=== PATIENT | male | born 1950 | race Caucasian/White ===

== ENCOUNTER 2018-10-30 15:48 | Observation (INO) | payer MEDICARE ==
[~2018-10-30] VITALS: Ht 172.7 cm; Wt 111.2 kg
[2018-10-30] VITALS (8 sets, daily range): BP systolic 134–172; BP diastolic 66–92
[~2018-10-30 15:48] MED LIST: ALBU17AE3 IH; AMLO10TA82 PO; ATOR40TA PO; BPR150TCR PO; BUDE6HFA IH; HYDR-3454 PO; HYDR1TAB86 PO; METF-399 PO; RT-COMBINH IH; TR5C15 TOP
--- NOTE | 2018-10-30 16:13 | ED Chest Pain ---
General Chief Complaint: Chest Pain Stated Complaint: CHEST PAIN,SOB Source: patient, family Exam Limitations: no limitations History of Present Illness Date Seen by Provider: Oct 30, 2018 Time Seen by Provider: 16:10 Initial Comments This 68-year-old white male presents with a complaint of chest pain and shortness of breath that has been present for the last several days. The patient states the shortness of breath is only mildly worse than his normal COPD. Patient's chest pain has been primarily anterior in his chest on both the right and left sides. It is been intermittent in nature. It does not seem to be associated with exercise. The patient's past medical history includes COPD. Allergies and Home Medications Allergies Coded Allergies: No Known Drug Allergies (Unverified , 03/21/13) Home Medications Atorvastatin Calcium 40 Mg Tablet, 40 MG PO DAILY, (Reported) Budesonide/Formoterol Fumarate 10.2 Gm Hfa.aer.ad, 2 PUFF IH BID, (Reported) Hydrocodone/Acetaminophen 1 Each Tablet, 1 EACH PO Q4H PRN for PAIN Prescribed by: BOBO SALAZAR on 06/04/16 1723 Ipratropium/Albuterol Sulfate 14.7 Gm Aer.w.adap, 2 PUFF IH QID, (Reported) Metformin HCl 1,000 Mg Tablet, 1,000 MG PO BID, (Reported) Patient Home Medication List Home Medication List Reviewed: Yes Review of Systems Review of Systems Constitutional: No chills, No fever EENTM: No Blurred Vision Respiratory: Denies Cough; SOA at Rest Cardiovascular: See HPI, Chest Pain Gastrointestinal: Denies Abdomen Distended, Denies Nausea, Denies Vomiting Genitourinary: Denies Flank Pain Musculoskeletal: No back pain Skin: No rash Psychiatric/Neurological: No Symptoms Reported Endocrine: No Symptoms Reported Hematologic/Lymphatic: No Symptoms Reported Past Eepcigq-Bvowyn-Sdosjl Hx Past Med/Social Hx: Reviewed Nursing Past Med/Soc Hx Patient Social History Recent Foreign Travel: No Contact w/Someone Who Travel: No Past Medical History Skin Physical Exam Vital Signs Vital Signs - First Documented 10/30/18 15:50 Temp 99.4 Pulse 106 Resp 25 B/P (MAP) 177/90 (119) Pulse Ox 93 O2 Delivery Room Air O2 Flow Rate 2.00 Capillary Refill : Height, Weight, BMI Height: 5'7.00" Weight: 235lbs. 0.0oz. 106.720647lt; 39.10 BMI Method: General Appearance: No Apparent Distress, WD/WN HEENT: Normal ENT Inspection Neck: Normal Inspection Respiratory: Decreased Breath Sounds, Wheezing Cardiovascular: Regular Rate, Rhythm Gastrointestinal: Normal Bowel Sounds Extremity: Normal Inspection, Normal Range of Motion Neurologic/Psychiatric: Alert, Oriented x3, No Motor/Sensory Deficits Skin: Normal Color, Warm/Dry Progress/Results/Core Measures Results/Orders Lab Results Laboratory Tests Test 10/30/18 15:58 Range/Units White Blood Count 7.1 4.3-11.0 10^3/uL Red Blood Count 5.16 4.35-5.85 10^6/uL Hemoglobin 15.2 13.3-17.7 G/DL Hematocrit 46 40-54 % Mean Corpuscular Volume 89 80-99 FL Mean Corpuscular Hemoglobin 30 25-34 PG Mean Corpuscular Hemoglobin Concent 33 32-36 G/DL Red Cell Distribution Width 14.1 10.0-14.5 % Platelet Count 235 130-400 10^3/uL Mean Platelet Volume 9.4 7.4-10.4 FL Neutrophils (%) (Auto) 50 42-75 % Lymphocytes (%) (Auto) 33 12-44 % Monocytes (%) (Auto) 14 H 0-12 % Eosinophils (%) (Auto) 3 0-10 % Basophils (%) (Auto) 0 0-10 % Neutrophils # (Auto) 3.5 1.8-7.8 X 10^3 Lymphocytes # (Auto) 2.4 1.0-4.0 X 10^3 Monocytes # (Auto) 1.0 0.0-1.0 X 10^3 Eosinophils # (Auto) 0.2 0.0-0.3 10^3/uL Basophils # (Auto) 0.0 0.0-0.1 10^3/uL Prothrombin Time 13.0 12.2-14.7 SEC INR Comment 1.0 0.8-1.4 Activated Partial Thromboplast Time 32 24-35 SEC Sodium Level 139 135-145 MMOL/L Potassium Level 3.8 3.6-5.0 MMOL/L Chloride Level 103 98-107 MMOL/L Carbon Dioxide Level 22 21-32 MMOL/L Anion Gap 14 5-14 MMOL/L Blood Urea Nitrogen 17 7-18 MG/DL Creatinine 0.80 0.60-1.30 MG/DL Estimat Glomerular Filtration Rate > 60 BUN/Creatinine Ratio 21 Glucose Level 124 H 70-105 MG/DL Calcium Level 9.2 8.5-10.1 MG/DL Corrected Calcium 9.1 8.5-10.1 MG/DL Magnesium Level 2.1 1.8-2.4 MG/DL Total Bilirubin 0.5 0.1-1.0 MG/DL Aspartate Amino Transf (AST/SGOT) 31 5-34 U/L Alanine Aminotransferase (ALT/SGPT) 40 0-55 U/L Alkaline Phosphatase 45 40-136 U/L Myoglobin 64.4 10.0-92.0 NG/ML Troponin I < 0.30 <0.30 NG/ML Total Protein 7.5 6.4-8.2 GM/DL Albumin 4.1 3.2-4.5 GM/DL My Orders Orders - BHARGAVI, SARAHI Fried MD Cbc With Automated Diff (10/30/18 16:08) Magnesium (10/30/18 16:08) Chest 1 View, Ap/Pa Only (10/30/18 16:08) Ekg Tracing (10/30/18 16:08) Cardiac Profile 1 (10/30/18 16:08) Comprehensive Metabolic Panel (10/30/18 16:08) Myoglobin Serum (10/30/18 16:08) Protime With Inr (10/30/18 16:08) Partial Thromboplastin Time (10/30/18 16:08) O2 (10/30/18 16:08) Monitor-Rhythm Ecg Trace Only (10/30/18 16:08) Lipid Panel (10/31/18 06:00) Aspirin Chewable Tablet (Baby Aspirin Ch (10/30/18 16:15) Nitroglycerin 0.4 Mg Btl 25's (Nitrostat (10/30/18 16:15) Saline Lock/Iv-Start (10/30/18 16:08) Methylprednisolone Sod Succ (Solu-Medrol (10/30/18 17:00) Ceftriaxone For Iv Use (Rocephin For I (10/30/18 17:00) Azithromycin Injection (Zithromax Inject (10/30/18 17:00) Albuterol/Ipra Inhalation Soln (Duoneb I (10/30/18 17:00) Svn Small Volume Nebulizer (10/30/18 17:00) Medications Given in ED Current Medications Medications Dose Ordered Sig/Elvira Route Start Time Stop Time Status Last Admin Dose Admin Aspirin 324 mg ONCE ONCE PO 10/30/18 16:15 10/30/18 16:16 DC 10/30/18 16:16 324 MG Nitroglycerin 0.4 mg UD PRN SL 10/30/18 16:15 10/30/18 16:17 0.4 MG Vital Signs/I&O 10/30/18 10/30/18 15:50 15:50 Temp 99.4 Pulse 106 Resp 25 B/P (MAP) 177/90 (119) Pulse Ox 93 94 O2 Delivery Room Air Nasal Cannula O2 Flow Rate 2.00 Progress Progress Note : Time: 17:02 Progress Note The patient's chest x-ray demonstrated a left lower lobe infiltrate. EKG demonstrated a sinus rhythm without an acute current of injury. The troponin was normal. After telephone consultation with the patient was admitted to telemetry bed. Initial ECG Impression Date: Oct 30, 2018 Departure Communication (Admissions) Time/Spoke to Admitting Phy: 17:04 Dr. Becker. Impression Primary Impression: COPD exacerbation Additional Impressions: Chest pain Qualified Codes: R07.9 - Chest pain, unspecified Pneumonia Qualified Codes: J18.1 - Lobar pneumonia, unspecified organism Disposition: ADMITTED INPATIENT Condition: Improved Admissions Decision to Admit Reason: Admit from ER (General) Decision to Admit/Date: Oct 30, 2018 Time/Decision to Admit Time: 17:06 Departure-Patient Inst. Referrals: RAFIA PENN DO (PCP) Primary Care Physician JOSÉ LUIS RODRÍGUEZ (Family) Primary Care Physician SARAHI BURK MD Oct 30, 2018 16:13
[2018-10-30 16:15] LABS: BASOPHILS % (AUTO) 0 % (0-10); EOSINOPHILS # (AUTO) 0.2 10^3/uL (0.0-0.3); EOSINOPHILS % (AUTO) 3 % (0-10); HEMATOCRIT 46 % (40-54); HEMOGLOBIN 15.2 G/DL (13.3-17.7); LYMPHOCYTES # (AUTO) 2.4 X 10^3 (1.0-4.0); LYMPHOCYTES % (AUTO) 33 % (12-44); MEAN CORPUSCULAR HEMOGLOBIN 30 PG (25-34); MEAN CORPUSCULAR HGB CONC 33 G/DL (32-36); MEAN CORPUSCULAR VOLUME 89 FL (80-99); MEAN PLATELET VOLUME 9.4 FL (7.4-10.4); MONOCYTES % (AUTO) 14 % (0-12); NEUTROPHILS # (AUTO) 3.5 X 10^3 (1.8-7.8); NEUTROPHILS % (AUTO) 50 % (42-75); PLATELET COUNT 235 10^3/uL (130-400); RED BLOOD COUNT 5.16 10^6/uL (4.35-5.85); RED CELL DISTRIBUTION WIDTH 14.1 % (10.0-14.5); WHITE BLOOD COUNT 7.1 10^3/uL (4.3-11.0)
[2018-10-30] MEDS ORDERED: ASPIRIN 81 MG CHEW (CHILDREN'S ASA) PO ONE (16:15)
[2018-10-30] MEDS ORDERED: NITROGLYCERIN 0.4 MG SL TABS BTL 25'S SL PRN (16:15)
[2018-10-30 16:29] LABS: ALANINE AMINOTRANSFERASE 40 U/L (0-55); ALBUMIN 4.1 GM/DL (3.2-4.5); ALKALINE PHOSPHATASE 45 U/L (40-136); BILIRUBIN,TOTAL 0.5 MG/DL (0.1-1.0); BUN/CREATININE RATIO 21; CALCIUM 9.2 MG/DL (8.5-10.1); CARBON DIOXIDE 22 MMOL/L (21-32); CHLORIDE 103 MMOL/L (98-107); GFR ESTIMATED > 60; GLUCOSE 124 MG/DL (70-105); MAGNESIUM 2.1 MG/DL (1.8-2.4); POTASSIUM 3.8 MMOL/L (3.6-5.0); SODIUM 139 MMOL/L (135-145); TOTAL PROTEIN 7.5 GM/DL (6.4-8.2)
--- NOTE | 2018-10-30 16:32 | Diagnostic Imaging Report ---
INDICATION: Chest pain radiating to both arms. TIME OF EXAM: 04:19 p.m. FINDINGS: Heart size is normal. There is some minimal infiltrate in the left base partially obscuring the left heart border. Otherwise, the lungs are clear. No effusion or pneumothorax is seen. IMPRESSION: Patchy left basilar infiltrate or atelectasis. Dictated by: Dictated on workstation # [id number]
[2018-10-30 16:36] LABS: MYOGLOBIN SERUM 64.4 NG/ML (10.0-92.0)
--- OUTSIDE RECORDS SUMMARY | 2018-10-30 16:43 | XMS REPORT ---
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 Name Role Phone JOSÉ LUIS RODRÍGUEZ Unavailable PROBLEMS Type Condition ICD9-CM Code RUX21-WZ Code Onset Dates Condition Status SNOMED Code Problem Hypertriglyceridemia E78.1 Active 189700845 Problem 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 Active 64275287 Problem Family history of diabetes mellitus Z83.3 Active 996881207 Problem History of MRSA infection Z86.14 Active 825868932 Problem Chronic pain G89.29 Active 26695261 Problem Dysthymia F34.1 Active 96655961 Problem Insomnia, unspecified type G47.00 Active 580962940 Problem Chronic obstructive pulmonary disease, unspecified COPD type J44.9 Active 12682856 Problem Osteoarthritis M19.90 Active 561579611 Problem Primary insomnia F51.01 Active 1927094 Problem Essential hypertension I10 Active 39046647 ALLERGIES No Information ENCOUNTERS Encounter Location Date Diagnosis [facility] [id number] [place] [address] 15039- 8092 Sep, [facility] [id number] [place] [address] 78988- 5149 Sep, Chronic pain G89.29 and Insomnia, unspecified type G47.00 [facility] [id number] [place] [address] 07080- 5129 2018 Seborrheic keratoses L82.1 and Sebaceous cyst L72.[address] 26856- 2515 Aug, Chronic pain G89.29 and Insomnia, unspecified type G47.00 [place] [facility] [address] 34105- 1837 18 Jul, 2018 Seborrheic keratoses L82.1 [facility] [id number] [place] [address] 79058- 4378 Jul, Chronic pain G89.29 and Insomnia, unspecified type G47.00 [facility] [id number] [place] [address] 61728- 8376 Jun, Chronic pain G89.29 and Insomnia, unspecified type G47.00 [facility] [id number] [place] [address] 04516- 9816 Jun, Seborrheic keratoses L82.1 [facility] [address] 36074- 6335 May, Dysthymia F34.1 ; Chronic obstructive pulmonary disease, unspecified COPD type J44.9 ; Chronic pain G89.29 ; Insomnia, unspecified type G47.00 ; BMI 40.0-44.9, adult Z68.41 and Other seborrheic keratosis L82.1 [facility] [id number] [place] [address] 09511- 9566 May, Chronic pain G89.29 and Insomnia, unspecified type G47.00 [facility] [id number] [place] [address] 03081- 0234 Apr, Hypertriglyceridemia E78.1 [facility] [id number] [place] [address] 37411- 2068 Apr, Chronic pain G89.29 and Insomnia, unspecified type G47.00 [facility] [id number] [place] [address] 99720- 1346 15 Apr, 2018 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 ; Hypertriglyceridemia E78.1 and Fatigue, unspecified type R53.83 [facility] [id number] [place] [address] 83388- 8680 13 Apr, 2018 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 ; Chronic pain G89.29 ; Primary insomnia F51.01 ; Chronic obstructive pulmonary disease, unspecified COPD type J44.9 ; Dysthymia F34.1 ; Hypertriglyceridemia E78.1 ; Fatigue, unspecified type R53.83 and Rash R21 [facility] [address] 23880- 2739 March, Chronic pain G89.29 and Insomnia, unspecified type G47.00 [facility] [address] 99942- 6213 March, Insomnia, unspecified type G47.00 [facility] [address] 03640- 2896 Feb, Chronic pain G89.29 [facility] [address] 11572- 5852 Feb, Chronic pain G89.29 [facility] [address] 66622- 7009 Jan, Chronic pain G89.29 [facility] [address] 17737- 2217 Dec, Chronic pain G89.29 [facility] [address] 04482- 5024 Nov, Chronic pain G89.29 and Insomnia, unspecified type G47.00 [facility] [id number] [place] [address] 89594- 0727 Oct, Insomnia, unspecified type G47.00 ; Chronic pain G89.29 and Colon cancer screening Z12.11 [facility] [id number] [place] [address] 72743- 5924 Oct, Chronic pain G89.29 [facility] [address] 92761- 5520 Sep, Chronic pain G89.29 and Insomnia, unspecified type G47.00 [facility] [id number] [place] [address] 14331- 1280 Sep, Chronic pain G89.29 [facility] [id number] [place] [address] 89196- 6836 Sep, [facility] [id number] [place] [address] 35790- 3781 Aug, Medicare welcome exam Z00.00 ; Encounter for immunization Z23 ; Colon cancer screening Z12.11 and Encounter for screening for lung cancer Z12.2 [facility] [address] 35166- 0373 Aug, [facility] [id number] [place] [address] 87329- 2123 Aug, Chronic pain G89.29 and Insomnia, unspecified type G47.00 [facility] [id number] [place] [address] 44309- 8339 Aug, Hypertriglyceridemia E78.1 [facility] [address] 68527- 1318 Jul, Chronic pain G89.29 and Insomnia, unspecified type G47.00 [facility] [id number] [place] [address] 55180- 6477 Jun, Hypertriglyceridemia E78.1 [facility] [id number] [place] [address] 98320- 2159 Jun, Chronic pain G89.29 and Insomnia, unspecified type G47.00 [facility] [place] [id number] [place] [address] 32005- 1630 Jun, [facility] [id number] [place] [address] 51667- 3153 Jun, [place] [address] 39011- 7709 May, 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 ; Chronic pain G89.29 ; Insomnia, unspecified type G47.00 and Rash R21 [facility] [id number] [place] [address] 09377- 1294 May, Chronic pain G89.29 [facility] [address] [address]- 5301 May, Hypertriglyceridemia E78.1 [facility] [id number] [place] [address] 02543- 4257 Apr, Chronic pain G89.29 [facility] [id number] [place] [address] 72677- 3595 Apr, Chronic pain G89.29 ; 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 ; Hypertriglyceridemia E78.1 and Primary insomnia F51.01 [facility] [id number] [place] [address] 65319- 4040 March, Chronic pain G89.29 [facility] [id number] [place] [address] 68361- 5570 March, Chronic pain G89.29 [facility] [id number] [place] [address] 39564- 4436 Feb, [facility] [id number] [place] [address] 63147- 2092 Feb, Chronic pain G89.29 [facility] [id number] [place] [address] 34882- 5514 Jan, Chronic pain G89.29 [facility] [id number] [place] [address] 89420- 7596 07 Dec, 2016 Chronic pain G89.29 [facility] [id number] [place] [address] 00295 2547 Dec, [facility] [id number] [place] [address] 96492- 8299 Nov, Hypertriglyceridemia E78.1 [facility] [id number] [place] [address] 81685- 2699 Nov, [facility] [id number] [place] [address] 75870- 4573 Nov, Chronic pain G89.29 ; Hypertriglyceridemia E78.1 and Chronic obstructive pulmonary disease, unspecified COPD type J44.9 [place] [id number] [place] [address] 34773- 0478 Nov, Chronic pain G89.29 [place] [id number] [place] [address] 59806- 5845 Oct, Chronic pain G89.29 [place] [facility] [address] 81894- 1853 05 Oct, 2016 [place] [address] 39118- 5508 Sep, Chronic obstructive pulmonary disease, unspecified COPD type J44.9 and Abscess L02.91 [place] [address] 04296- 3086 16 Sep, 2016 Chronic pain G89.29 [place] [address] 21861- 2592 Aug, Chronic pain G89.29 [place] [address] 12528- 8959 Aug, Chronic pain G89.29 [place] [address] 08598- 8955 Aug, Cutaneous horn L85.8 and Skin tag L91.8 [place] [id number] [place] [address] 85892- 8643 Jul, [place] [address] 45393- 3995 09 Jul, 2016 Hypertriglyceridemia E78.1 [place] [address] 07997- 2320 07 Jul, 2016 Other chronic pain G89.29 ; Essential hypertension I10 ; 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 ; Hyperlipidemia, unspecified hyperlipidemia type E78.5 and Cutaneous horn L85.8 [place] [address] 12307- 5835 Jun, Chronic pain G89.29 [facility] [address] [address]- 5936 May, Chronic pain G89.29 [facility] [id number] [place] [address] 55718 2546 May, [facility] [id number] [place] [address] 48773- 7738 May, Skin infection L08.9 [facility] [id number] [place] [address] 50034 2544 Apr, Chronic pain G89.29 [facility] [id number] [place] [address] 26340- 2456 Apr, [facility] [id number] [place] [address] 92572- 4945 Apr, Chronic pain G89.29 [facility] [id number] [place] [address] 74151- 9759 March, [facility] [id number] [place] [address] 83356- 7649 Feb, Chronic pain G89.29 ; 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 and Hypertriglyceridemia E78.1 [facility] [address] [address]- 1382 Feb, [facility] [id number] [place] [address] 20678- 8337 Jan, [facility] [address] [address]- 9190 Dec, [facility] [id number] [place] [address] 97151- 4194 Nov, [facility] [address] [place] [address]- 4443 Oct, [facility] [id number] [place] [address] 56241- 0825 Oct, 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 [facility] [id number] [place] [address] 40982- 5785 Oct, Other chronic pain G89.29 ; Chronic obstructive pulmonary disease, unspecified COPD type J44.9 ; Insomnia, unspecified type G47.00 ; 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 and Essential hypertension I10 [facility] [address] 15107- 6979 Sep, [facility] [address] 16699- 9637 Aug, [facility] [address] 05626- 9192 Jul, [facility] [address] 88758- 9483 Jul, [facility] [address] 80844- 7157 Jul, Overweight 278.02 and Hyperinsulinemia 251.1 [facility] [address] 26847- 8974 Jul, [facility] [address] 81758- 1365 Jun, Skin tags, multiple acquired 701.9 [facility] [id number] [place] [address] 89474- 0853 Jun, Other chronic pain 338.29 ; Erectile dysfunction 607.84 ; Hyperinsulinemia 251.1 and Hypertension 401.9 [facility] [id number] [place] [address] 24994- 7937 Jun, [facility] [address] 47338- 6536 Jun, [facility] [id number] [place] [address] 74310- 7086 Jun, [facility] [address] 87545- 5168 May, Pure hyperglyceridemia 272.1 [facility] [id number] [place] [address] 85125- 9838 May, Pure hyperglyceridemia 272.1 [facility] [id number] [place] [address] 42601- 8287 May, [facility] [id number] [place] [address] 873116- 0675 May, Overgrown toenails 703.8 ; Seborrheic keratosis 702.19 ; Skin tag 701.9 ; Warts, genital 078.11 ; Cramps, extremity 729.82 ; Increased appetite 783.6 and Heat rash 705.1 [facility] [id number] [place] [address] 94267- 6603 May, [facility] [id number] [place] [address] 12265- 8959 Apr, [facility] [id number] [place] [address] 60932- 1606 Apr, [facility] [id number] [place] [address] 73821- 9989 March, [facility] [id number] [place] [address] 43141- 2894 Feb, [facility] [id number] [place] [address] 58750- 8566 Feb, [facility] [id number] [place] [address] 44254- 5773 Jan, [facility] [id number] [place] [address] 520122- 2242 Jan, [facility] [id number] [place] [address] [id number]- 5945 Jan, [facility] [id number] [place] [address] 659588- 7919 Jan, [facility] [place] [facility] [address] [id number] [place] [address]- 1198 Jan, [facility] [place] [facility] [address] [id number] [place] [address]- 6239 Jan, [facility] [place] [facility] [address] [id number] [place] [address]- 6368 16 Jan, 2015 [facility] [place] [facility] [address] [id number] [place] [address]- 3767 16 Jan, 2014 [facility] [place] [facility] [address] [id number] [place] [address]- 6235 Jan, [facility] [place] [facility] [address] [id number] [place] [address]- 2891 10 Jan, 2014 [facility] [place] [facility] [address] [id number] [place] [address]- 5964 Jan, [facility] [place] [facility] [address] [id number] [place] [address]- 8103 Jan, 2014 [facility] [place] [facility] [address] [id number] [place] [address]- 3176 Dec, 2014 [facility] [place] [facility] [address] [id number] [place] [address]- 0718 Dec, 2014 [facility] [place] [facility] [address] [id number] [place] [address]- 9240 Dec, 2014 [facility] [place] [facility] [address] [id number], [place] [address]- 4714 Dec, 2014 [facility] [place] [facility] [address] [id number] [place] [address]- 9074 Dec, 2014 [facility] [place] [facility] [address] [id number] [place] [address]- 9683 Dec, 2014 [facility] [place] [facility] [address] [id number] [place] [address]- 0596 Dec, 2014 [facility] [place] [facility] [address] [id number] [place] [address]- 2494 Dec, [facility] [place] [facility] [address] [id number] [place] [address]- 5866 Nov, [facility] [place] [facility] [address] [id number] [place] [address]- 2086 Nov, [facility] [place] [facility] [address] [id number] [place] [address]- 1350 Nov, [facility] [place] [facility] [address] [id number] [place] [address]- 1559 Nov, [facility] [place] [facility] [address] [id number] [place] [address]- 4066 Nov, [facility] [place] [facility] [address] [id number] [place] [address]- 0588 Nov, [facility] [place] [facility] [address] [id number] [place] [address]- 8568 Nov, [facility] [place] [facility] [address] [id number] [place] [address]- 7238 Nov, [facility] [place] [facility] [address] [id number] [place] [address]- 9048 Oct, [facility] [place] [facility] [address] [facility] [id number] [place] [address]- 6032 Oct, [facility] [place] [facility] [address] [id number] [place] [address]- 9810 Sep, [facility] [place] [facility] [address] [id number] [place] [address]- 3072 Sep, [facility] [place] [facility] [address] [id number] [place] [address]- 2334 Sep, [facility] [place] [facility] [address] [id number] [place] [address]- 6643 Sep, [facility] [place] [facility] [address] [id number] [place] [address]- 0205 Aug, [facility] [place] [facility] [address] [id number] [place] [address]- 7445 Aug, [facility] [place] [facility] [address] [id number] [place] [address]- 9834 Aug, [facility] [place] [facility] [address] [id number] [place] 1329 Aug, [facility] [place] [facility] [address] [id number] [place] [address]- 4202 Aug, [facility] [place] [facility] [address] [id number] [place] [address]- 8544 Aug, [facility] [place] [facility] [address] [id number] [place] [address]- 3012 Aug, [facility] [place] [facility] [address] [id number] [place] [address]- 1623 Aug, [facility] [place] [facility] [address] [id number] [place] [address]- 1360 Jul, [facility] [place] [facility] [address] [id number] [place] [address]- 0466 Jul, [facility] [place] [facility] [address] [id number] [place] [address]- 1424 Jul, [facility] [place] [facility] [address] [id number] [place] [address]- 5341 Jul, [facility] [place] [facility] [address] [id number] [place] [address]- 6723 Jul, [facility] [place] [facility] [address] [id number] [place] [address]- 5622 Jun, [facility] [place] [facility] [address] [id number] [place] [address]- 8193 Jun, [facility] [place] [facility] [address] [id number] [place] [address]- 3822 Jun, [facility] [place] [facility] [address] [id number] [place] [address]- 1035 Jun, [facility] [place] [facility] [address] [id number] [place] [address]- 8407 Jun, [facility] [place] [facility] [address] [id number] [place] [address]- 3554 Jun, [facility] [place] [facility] [address] [id number] [place] [address]- 8220 May, [facility] [place] [facility] [address] [id number] [place] [address]- 6966 May, [facility] [place] [facility] [address] [id number] [place] [address]- 2194 May, [facility] [place] [facility] [address] [id number] [place] [address]- 5931 May, [facility] [place] [facility] [address] [id number] [place] [address]- 1842 Apr, [facility] [place] [facility] [address] [id number] [place] [address]- 6198 Apr, [facility] [place] [facility] [address] [id number] [place] [address]- 6542 Apr, [facility] [place] [facility] [address] [id number] [place] [address]- 1052 Apr, [facility] [place] [facility] [address] [id number] [place] [address]- 3381 Apr, [facility] [place] [facility] [address] [id number] [place] [address]- 5372 Apr, [facility] [place] [facility] [address] [id number] [place] [address]- 2758 March, [facility] [place] [facility] [address] [id number] [place] [address] March, [facility] [place] [facility] [address] [id number] [place] [address] March, [facility] [place] [facility] [address] [id number] [place] [address] March, [facility] [address] [id number] [place] [address] Feb, [facility] [place] [facility] [address] [id number] [place] [address] Feb, [facility] [address] [id number] [place] [address] Feb, [facility] [place] [facility] [address] [id number] [place] [address] Feb, [facility] [address] [id number] [place] [address] Feb, [facility] [address] [id number] [place] [address] Feb, [facility] [place] [facility] [address] [id number] [place] [address] Feb, [facility] [address] [id number] [place] [address] Feb, [facility] [place] [facility] [address] [id number] [place] [address] Feb, [facility] [address] [id number] [place] [address] Feb, [facility] [place] [facility] [address] [id number] [place] [address] Feb, [facility] [place] [facility] [address] [id number] [place] [address] Feb, [facility] [place] [facility] [address] [id number] [place] [address] Feb, [facility] [place] [facility] [address] [id number] [place] [address] Feb, [facility] [place] [facility] [address] [id number] [place] [address]- [address] Feb, [facility] [place] [facility] [address] [id number] [place] [address] Feb, [facility] [place] [facility] [address] [id number] [place] [address] Jan, [facility] [place] [facility] [address] [id number] [place] [address] Jan, [facility] [place] [facility] [address] [id number] [place] [address] Dec, [facility] [place] [facility] [address] [id number] [place] [address] Dec, [facility] [place] [facility] [address] [id number] [place] [address] Dec, [facility] [place] [facility] [address] [facility] [id number] [place] [address] Dec, [facility] [place] [facility] [address] [id number] [place] [address] Dec, [facility] [place] [facility] [address] [id number] [place] [address]- [address] Dec, [facility] [place] [facility] [address] [id number] [place] [address] Dec, [facility] [place] [facility] [address] [id number] [place] [address] Nov, [facility] [place] [facility] [address] [id number] [place] [address] Nov, [facility] [place] [facility] [address] [id number] [place] [address] Nov, [facility] [place] [facility] [address] [facility] [id number] [place] [address] Nov, [facility] [place] [facility] [address] [facility] [id number] [place] [address] Oct, [facility] [place] [facility] [address] [id number] [place] [address] Oct, [facility] [address] [id number] [place] [address] Sep, [facility] [place] [facility] [address] [id number] [place] [address] Sep, [facility] [address] [id number] [place] [address] Aug, [facility] [place] [facility] [address] [id number] [place] [address] Aug, [facility] [address] [id number] [place] [address] Aug, [facility] [address] [id number] [place] [address] Aug, [facility] [address] [id number] [place] [address] Aug, [facility] [address] [id number] [place] [address] Aug, [facility] [place] [facility] [address] [id number] [place] [address] Aug, [facility] [address] [id number] [place] [address] Aug, [facility] [place] [facility] [address] [id number] [place] [address] Aug, [facility] [place] [facility] [address] [id number] [place] [address] Aug, [facility] [place] [facility] [address] [id number] [place] [address] Jun, [facility] [place] [facility] [address] [id number] [place] [address] Jun, [facility] [place] [facility] [address] [address] [id number] [place] [address] May, [facility] [address] [id number] [place] [address] Apr, [facility] [place] [facility] [address] [id number] [place] [address] Apr, [facility] [place] [facility] [address] [id number] [place] [address] March, [facility] [place] [facility] [address] [id number] [place] [address] Feb, [facility] [address] [id number] [place] [address] Jan, [facility] [place] [facility] [address] [id number] [place] [address] Jan, [facility] [address] [id number] [place] [address] Dec, [facility] [address] [id number] [place] [address] Dec, [facility] [place] [facility] [address] [id number] [place] [address] Nov, [facility] [place] [facility] [address] [id number] [place] [address] Jul, [facility] [place] [facility] [address] [id number] [place] [address] Jul, [facility] [place] [facility] [address] [id number] [place] [address] Jun, [facility] [place] [facility] [address] [id number] [place] [address] May, [facility] [place] [facility] [address] [id number] [place] [address] May, [facility] [place] [facility] [address] [id number] [place] [address] May, [facility] [place] [facility] [address] [id number], [place] [address] May, [facility] [address] [facility] [id number], [place] [address] May, [facility] [address] [id number], [place] [address] May, [facility] [address] [id number], [place] [address] May, [facility] [address] [id number], [place] [address] Apr, [facility] [address] [id number], [place] [address] Apr, [facility] [address] [id number], [place] [address] Apr, [facility] [address] [id number], [place] [address] Apr, IMMUNIZATIONS No Known Immunizations SOCIAL HISTORY Never Assessed REASON FOR VISIT Controlled Med Refill 10/13/18 PLAN OF CARE VITAL SIGNS MEDICATIONS Medication Instructions Dosage Frequency Start Date End Date Duration Status Ambien 10 MG Orally Once a day 1 tablet at bedtime 24h May, 28 days Active Hydrocodone-Acetaminophen 10-325 MG Orally 4 times a day 1 tablet as needed for pain 6h Sep, 28 days Active RESULTS No Results PROCEDURES No Known procedures INSTRUCTIONS MEDICATIONS ADMINISTERED No Known Medications MEDICAL (GENERAL) HISTORY Type Description Date Medical History hypogonadism Medical History hyperlipidemia Medical History pre-diabetic Medical History chronic pain Medical History COPD Surgical History skin cancer 1999 Hospitalization History surgery Hospitalization History MRSA infection 05/2015
--- OUTSIDE RECORDS SUMMARY | 2018-10-30 16:44 | XMS REPORT ---
Author Author JOSÉ LUIS RODRÍGUEZ Organization [facility] Address [address] [place] [address] Care Team Providers Care Rougher For Cement Name Role Phone JOSÉ LUIS RODRÍGUEZ Unavailable PROBLEMS Type Condition ICD9-CM Code UHA58-CI Code Onset Dates Condition Status SNOMED Code Problem Hypertriglyceridemia E78.1 Active 991641536 Problem 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 Active 44148853 Problem Family history of diabetes mellitus Z83.3 Active 797684228 Problem History of MRSA infection Z86.14 Active 783597586 Problem Chronic pain G89.29 Active 70831216 Problem Dysthymia F34.1 Active 35246364 Problem Insomnia, unspecified type G47.00 Active 183899393 Problem Chronic obstructive pulmonary disease, unspecified COPD type J44.9 Active 24719462 Problem Osteoarthritis M19.90 Active 085663319 Problem Primary insomnia F51.01 Active 8507829 Problem Essential hypertension I10 Active 27341056 ALLERGIES No Information ENCOUNTERS Encounter Location Date Diagnosis [place] [id number] [place] [address] 34534- 7782 Aug, [place] [id number] [place] [address] 55534- 0662 18 Jul, 2018 Seborrheic keratoses L82.1 [place] [id number] [place] [address] 18648- 2962 14 Jul, 2018 Chronic pain G89.29 and Insomnia, unspecified type G47.00 [place] [address] 18400- 3532 Jun, Chronic pain G89.29 and Insomnia, unspecified type G47.00 [place] [id number] [place] [address] 79254- 6879 Jun, Seborrheic keratoses L82.1 [place] [id number] [place] [address] 84759- 5417 May, Dysthymia F34.1 ; Chronic obstructive pulmonary disease, unspecified COPD type J44.9 ; Chronic pain G89.29 ; Insomnia, unspecified type G47.00 ; BMI 40.0-44.9, adult Z68.41 and Other seborrheic keratosis L82.1 [place] [address] 32592- 3125 May, Chronic pain G89.29 and Insomnia, unspecified type G47.00 [place] [address] 86301- 6000 Apr, Hypertriglyceridemia E78.1 [place] [address] 99356- 6613 Apr, Chronic pain G89.29 and Insomnia, unspecified type G47.00 [place] [address] 33285- 2561 Apr, 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 ; Hypertriglyceridemia E78.1 and Fatigue, unspecified type R53.83 [place] [address] 40878- 8749 Apr, 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 ; Chronic pain G89.29 ; Primary insomnia F51.01 ; Chronic obstructive pulmonary disease, unspecified COPD type J44.9 ; Dysthymia F34.1 ; Hypertriglyceridemia E78.1 ; Fatigue, unspecified type R53.83 and Rash R21 [place] [address] 69412- 1382 March, Chronic pain G89.29 and Insomnia, unspecified type G47.00 [place] [id number] [place] [address] March, Insomnia, unspecified type G47.00 [place] [address] 07253- 5003 Feb, Chronic pain G89.29 [facility] [address] [address]- 5980 Feb, Chronic pain G89.29 [facility] [address] [address]- 2321 Jan, Chronic pain G89.29 [facility] [address] [place] [address] 23991- 2254 Dec, Chronic pain G89.29 [facility] [id number] [place] [address] 91828- 9506 Nov, Chronic pain G89.29 and Insomnia, unspecified type G47.00 [place] [id number] [place] [address] 92442- 2398 Oct, Insomnia, unspecified type G47.00 ; Chronic pain G89.29 and Colon cancer screening Z12.11 [place] [id number] [place] [address] 64455- 4131 Oct, Chronic pain G89.29 [facility] [id number] [place] [address] 93250- 3808 Sep, Chronic pain G89.29 and Insomnia, unspecified type G47.00 [place] [address] [address]- 2132 Sep, Chronic pain G89.29 [facility] [address] [place] [address] 64311- 6136 Sep, [place] [address] [place] [address] 62825- 4111 Aug, Medicare welcome exam Z00.00 ; Encounter for immunization Z23 ; Colon cancer screening Z12.11 and Encounter for screening for lung cancer Z12.2 [facility] [address] [address]- 4889 19 Aug, 2017 [facility] [id number] [place] [address] 35671- 1243 Aug, Chronic pain G89.29 and Insomnia, unspecified type G47.00 [facility] [id number] [place] [address] 09783- 8576 Aug, Hypertriglyceridemia E78.1 [facility] [id number] [place] [address] 19696- 1041 Jul, Chronic pain G89.29 and Insomnia, unspecified type G47.00 [facility] [id number] [place] [address] 67132- 5197 Jun, Hypertriglyceridemia E78.1 [place] [address] 30234- 4564 Jun, Chronic pain G89.29 and Insomnia, unspecified type G47.00 [place] [id number] [place] [address] 34949- 6224 Jun, [facility] [address] 20692- 5287 Jun, [facility] [id number] [place] [address] 64097- 1010 May, 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 ; Chronic pain G89.29 ; Insomnia, unspecified type G47.00 and Rash R21 [place] [id number] [place] [address] 08660- 6951 May, Chronic pain G89.29 [facility] [id number] [place] [address] 35210- 3004 May, Hypertriglyceridemia E78.1 [place] [id number] [place] [address] 01759- 6239 Apr, Chronic pain G89.29 [facility] [id number] [place] [address] 79974- 0608 Apr, Chronic pain G89.29 ; 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 ; Hypertriglyceridemia E78.1 and Primary insomnia F51.01 [place] [address] [address]- 7888 March, Chronic pain G89.29 [facility] [address] [place] [address] 46327- 6945 March, Chronic pain G89.29 [facility] [address] [address]- 1445 Feb, [facility] [id number] [place] [address] 80447- 0278 Feb, Chronic pain G89.29 [facility] [address] [place] [address] 26031- 7100 Jan, Chronic pain G89.29 [facility] [id number] [place] [address] 86103- 5004 07 Dec, 2016 Chronic pain G89.29 [facility] [id number] [place] [address] 04120- 7520 Dec, [facility] [address] [place] [address] 43573- 9877 Nov, Hypertriglyceridemia E78.1 [facility] [id number] [place] [address] 12786- 6048 Nov, [facility] [address] [place] [address] 69589- 7263 Nov, Chronic pain G89.29 ; Hypertriglyceridemia E78.1 and Chronic obstructive pulmonary disease, unspecified COPD type J44.9 [facility] [address] [address]- 8984 Nov, Chronic pain G89.29 [facility] [id number] [place] [address] 39101- 9106 Oct, Chronic pain G89.29 [facility] [address] 9422 Oct, [facility] [address] 21537- 2082 Sep, Chronic obstructive pulmonary disease, unspecified COPD type J44.9 and Abscess L02.91 [place] [address] 04315- 4539 Sep, Chronic pain G89.29 [place] [address] 87627- 8543 Aug, Chronic pain G89.29 [facility] [address] 36433- 2160 Aug, Chronic pain G89.29 [place] [address] 36234- 3414 Aug, Cutaneous horn L85.8 and Skin tag L91.8 [place] [address] 46213- 2447 Jul, [place] [address] 97804- 5770 Jul, Hypertriglyceridemia E78.1 [place] [address] 53289- 9242 07 Jul, 2016 Other chronic pain G89.29 ; Essential hypertension I10 ; 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 ; Hyperlipidemia, unspecified hyperlipidemia type E78.5 and Cutaneous horn L85.8 [place] [id number] [place] [address] 87635- 6871 Jun, Chronic pain G89.29 [place] [address] 05816- 9503 May, Chronic pain G89.29 [place] [address] 82071- 7188 May, [place] [address] 75630- 8387 May, Skin infection L08.9 [place] [address] 24183- 4691 Apr, Chronic pain G89.29 [facility] [id number] [place] [address] 20368- 5554 Apr, [facility] [address] 13587- 1745 Apr, Chronic pain G89.29 [facility] [address] 71186- 7568 March, [facility] [address] 05554- 2567 Feb, Chronic pain G89.29 ; 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 and Hypertriglyceridemia E78.1 [facility] [address] 05242- 3815 Feb, [facility] [address] 20268- 8697 Jan, [facility] [address] 58270- 3412 Dec, [facility] [address] 27163- 9813 Nov, [facility] [address] 27838- 5376 Oct, [facility] [id number] [place] [address] 13706- 5606 Oct, 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 [facility] [address] 15548- 3544 Oct, Other chronic pain G89.29 ; Chronic obstructive pulmonary disease, unspecified COPD type J44.9 ; Insomnia, unspecified type G47.00 ; 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 and Essential hypertension I10 [facility] [id number] [place] [address] 67041- 1516 Sep, [facility] [address] 58044- 1168 Aug, [facility] [address] [place] [address] 99522- 9543 30 Jul, 2015 [facility] [id number] [place] [address] 14875- 8841 Jul, [facility] [id number] [place] [address] 43933- 3649 Jul, Overweight 278.02 and Hyperinsulinemia 251.1 [facility] [id number] [place] [address] 33372- 7264 Jul, [facility] [id number] [place] [address] 81079- 8289 Jun, Skin tags, multiple acquired 701.9 [facility] [id number] [place] [address] 19011- 0414 Jun, Other chronic pain 338.29 ; Erectile dysfunction 607.84 ; Hyperinsulinemia 251.1 and Hypertension 401.9 [facility] [id number] [place] [address] 07675- 0932 Jun, [facility] [id number] [place] [address] 24540- 3978 Jun, [facility] [id number] [place] [address] 26113- 8069 Jun, [facility] [id number] [place] [address] 87804- 9933 May, Pure hyperglyceridemia 272.1 [facility] [address] [place] [address] 93765- 2549 May, Pure hyperglyceridemia 272.1 [facility] [id number] [place] [address] 56147- 0524 May, [facility] [id number] [place] [address] 30702- 4933 May, Overgrown toenails 703.8 ; Seborrheic keratosis 702.19 ; Skin tag 701.9 ; Warts, genital 078.11 ; Cramps, extremity 729.82 ; Increased appetite 783.6 and Heat rash 705.1 [facility] [address] [address]- 4406 May, [facility] [id number] [address]- 9964 Apr, [facility] [id number] [place] [address] 62796- 6949 08 Apr, 2015 [facility] [id number] [address]- 6816 March, [facility] [id number] [place] [address] 40266- 0465 14 Feb, 2015 [facility] [id number] [place] [address] 91842- 4575 Feb, [facility] [id number] [address]- 3941 27 Jan, 2015 [facility] [address] [address]- 8584 27 Jan, 2015 [facility] [address] [address]- 5940 27 Jan, 2015 [facility] [address] 3250 27 Jan, 2015 [facility] [address] [address]- 3119 Jan, [facility] [address] [address]- 9462 19 Jan, 2015 [facility] [address] [address]- 4616 16 Jan, 2015 [facility] [id number] [address]- 1356 16 Jan, 2015 [facility] [id number] [address]- 0952 Jan, [facility] [place] [facility] [address] [id number] [place] [address]- 0383 Jan, [facility] [place] [facility] [address] [id number] [place] [address]- 3523 Jan, [facility] [place] [facility] [address] [facility] [id number] [place] [address]- 4398 Jan, [facility] [place] [facility] [address] [id number] [place] [address]- 7677 Dec, 2014 [facility] [place] [facility] [address] [id number] [place] [address]- 7657 Dec, 2014 [facility] [place] [facility] [address] [id number] [place] [address]- 0672 Dec, 2014 [facility] [place] [facility] [address] [facility] [id number] [place] [address]- 5465 Dec, 2014 [facility] [place] [facility] [address] [facility] [id number] [place] [address]- 7119 Dec, 2014 [facility] [place] [facility] [address] [facility] [id number] [place] [address]- 8436 Dec, 2014 [facility] [place] [facility] [address] [facility] [id number] [place] [address]- 7645 Dec, [facility] [place] [facility] [address] [facility] [id number] [place] [address]- 5975 Dec, [facility] [place] [facility] [address] [facility] [id number] [place] [address]- 6131 Nov, [facility] [place] [facility] [address] [id number] [place] [address]- 1379 Nov, [facility] [place] [facility] [address] [facility] [id number] [place] [address]- 9923 Nov, [facility] [place] [facility] [address] [facility] [id number] [place] [address]- 0415 Nov, [facility] [place] [facility] [address] [id number] [place] [address]- 3590 Nov, [facility] [place] [facility] [address] [id number] [place] [address]- 7587 Nov, [facility] [place] [facility] [address] [id number] [place] [address]- 6530 Nov, [facility] [place] [facility] [address] [id number] [place] [address]- 8629 Nov, [facility] [place] [facility] [address] [id number] [place] [address]- 7730 Oct, [facility] [place] [facility] [address] [id number] [place] [address]- 5617 Oct, [facility] [place] [facility] [address] [id number] [place] [address]- 8112 Sep, [facility] [place] [facility] [address] [id number] [place] [address]- 9707 Sep, [facility] [place] [facility] [address] [id number] [place] [address]- 7521 Sep, [facility] [place] [facility] [address] [id number] [address]- 3385 Sep, [facility] [place] [facility] [address] [id number], [place] [address]- 3265 Aug, [facility] [place] [facility] [address] [id number], [place] [address]- 6813 Aug, [facility] [place] [facility] [address] [id number], [place] [address]- 2841 Aug, [facility] [place] [facility] [address] [id number] [address]- 6719 Aug, [facility] [place] [facility] [address] [id number] 9834 Aug, [facility] [place] [facility] [address] [id number], [place] [address]- 0849 Aug, [facility] [place] [facility] [address] [id number] [place] [address]- 4208 Aug, [facility] [place] [facility] [address] [id number] [place] [address]- 3540 Aug, [facility] [place] [facility] [address] [id number] [place] [address]- 5213 Jul, [facility] [place] [facility] [address] [id number] [place] [address]- 5634 Jul, [facility] [place] [facility] [address] [id number] [place] [address]- 3272 Jul, [facility] [place] [facility] [address] [id number] [place] [address]- 6140 Jul, [facility] [place] [facility] [address] [id number] [place] [address]- 6981 Jul, [facility] [place] [facility] [address] [id number] [place] [address]- 6198 Jun, [facility] [place] [facility] [address] [id number] [place] [address]- 7981 Jun, [facility] [place] [facility] [address] [id number] [place] [address]- 0951 Jun, [facility] [place] [facility] [address] [id number] [place] [address]- 9871 Jun, [facility] [place] [facility] [address] [id number] [place] [address]- 9914 Jun, [facility] [place] [facility] [address] [id number] [place] [address]- 5376 Jun, [facility] [place] [facility] [address] [id number] [place] [address]- 6271 May, [facility] [place] [facility] [address] [id number] [place] [address]- 4678 May, [facility] [place] [facility] [address] [id number] [place] [address]- 6069 May, [facility] [place] [facility] [address] [id number] [place] [address]- 6416 May, [facility] [place] [facility] [address] [id number] [place] [address]- 8905 Apr, [facility] [place] [facility] [address] [id number] [place] [address]- 2569 Apr, [facility] [place] [facility] [address] [id number] [place] [address]- 6878 Apr, [facility] [place] [facility] [address] [id number] [place] [address]- 2364 Apr, [facility] [place] [facility] [address] [id number] [place] [address]- 7735 Apr, [facility] [place] [facility] [address] [id number] [place] [address]- 1437 Apr, [facility] [place] [facility] [address] [id number] [place] [address]- 7165 March, [facility] [place] [facility] [address] [id number] [place] [address]- 9784 March, [facility] [place] [facility] [address] [id number] [place] [address]- 5117 March, [facility] [place] [facility] [address] [id number] [place] [address]- 8254 March, [facility] [place] [facility] [address] [id number] [place] [address]- 6895 Feb, [facility] [place] [facility] [address] [id number] [place] [address]- 2109 Feb, [facility] [place] [facility] [address] [id number] [place] [address]- 9160 Feb, [facility] [place] [facility] [address] [id number] [place] [address]- 4126 Feb, [facility] [place] [facility] [address] [id number] [place] [address]- 7336 Feb, [facility] [place] [facility] [address] [id number] [place] [address]- 7193 Feb, [facility] [place] [facility] [address] [id number] [place] [address]- 6137 Feb, [facility] [place] [facility] [address] [id number] [place] [address]- 5622 Feb, [facility] [place] [facility] [address] [id number] [place] [address]- 2443 Feb, [facility] [place] [facility] [address] [id number] [place] [address]- 1771 Feb, [facility] [place] [facility] [address] [id number] [place] [address]- 0532 Feb, [facility] [place] [facility] [address] [id number] [place] [address]- 1243 Feb, [facility] [place] [facility] [address] [id number] [place] [address]- 7558 Feb, [facility] [place] [facility] [address] [id number] [place] [address]- 8625 Feb, [facility] [place] [facility] [address] [id number] [place] [address]- 7532 Feb, [facility] [place] [facility] [address] [id number] [address] Feb, [facility] [place] [facility] [address] [id number] [place] [address] Jan, [facility] [place] [facility] [address] [id number] [place] [address] Jan, [facility] [place] [facility] [address] [id number] [place] [address] Dec, [facility] [place] [facility] [address] [id number] [place] [address] Dec, [facility] [address] [id number] [place] [address] Dec, [facility] [place] [facility] [address] [id number] [place] [address] Dec, [facility] [place] [facility] [address] [id number] [place] [address] 3536 Dec, [facility] [place] [facility] [address] [id number] [place] [address] Dec, [facility] [place] [facility] [address] [id number] [place] [address] Dec, [facility] [place] [facility] [address] [facility] [id number] [place] [address] Nov, [facility] [place] [facility] [address] [id number] [place] [address]- [address]76 Nov, [facility] [place] [facility] [address] [id number] [place] [address] Nov, [facility] [place] [facility] [address] [facility] [id number] [place] [address] Nov, [facility] [place] [facility] [address] [facility] [id number] [place] [address] Oct, [facility] [place] [facility] [address] [id number] [place] [address]395 Oct, [facility] [place] [facility] [address] [id number] [place] [address] Sep, [facility] [place] [facility] [address] [id number] [place] [address]16 Sep, [facility] [place] [facility] [address] [id number] [place] [address]046 Aug, [facility] [place] [facility] [address] [id number] [place] [address]863 Aug, [facility] [place] [facility] [address] [id number] [place] [address] Aug, [facility] [place] [facility] [address] [id number] [place] [address]- 3318 Aug, [facility] [place] [facility] [address] [id number] [place] [address]- 5714 Aug, [facility] [place] [facility] [address] [id number] [place] [address] Aug, [facility] [place] [facility] [address] [id number] [place] [address] Aug, [facility] [place] [facility] [address] [id number] [place] [address]- [address] Aug, [facility] [place] [facility] [address] [id number] [place] [address]- [address] Aug, [facility] [place] [facility] [address] [id number] [place] [address]757 Aug, [facility] [place] [facility] [address] [id number] [place] [address] 79[address] Jun, [facility] [place] [facility] [address] [id number] [place] [address] Jun, [facility] [place] [facility] [address] [id number], [place] [address] May, [facility] [place] [facility] [address] [id number], [place] [address] Apr, [facility] [place] [facility] [address] [id number] [place] [address]758 Apr, [facility] [place] [facility] [address] [id number] [place] [address] March, [facility] [place] [facility] [address] [id number] [place] [address] Feb, [facility] [place] [facility] [address] [id number] [place] [address] Jan, [facility] [address] [id number] [place] [address] Jan, [facility] [place] [facility] [address] [id number] [place] [address] Dec, [facility] [place] [facility] [address] [id number] [place] [address]- [address] Dec, [facility] [place] [facility] [address] [id number] [place] [address] Nov, [facility] [facility] [address] [id number] [place] [address] Jul, [facility] [place] [facility] [address] [id number] [place] [address] Jul, [facility] [address] [id number] [place] [address] Jun, [facility] [address] [id number] [place] [address] May, [facility] [place] [facility] [address] [id number] [place] [address] May, [facility] [address] [id number] [place] [address] May, [facility] [place] [facility] [address] [id number] [place] [address] May, [facility] [place] [facility] [address] [id number] [place] [address] May, [facility] [place] [facility] [address] [id number] [place] [address] May, [facility] [place] [facility] [address] [id number] [place] [address] May, [facility] [place] [facility] [address] [id number] [place] [address] Apr, [facility] [address] [facility] [id number] [place] [address] Apr, [facility] [address] [facility] [id number] [address] Apr, [facility] [address] [facility] [id number] [place] [address] Apr, IMMUNIZATIONS No Known Immunizations SOCIAL HISTORY Never Assessed REASON FOR VISIT Controlled Med Refill 08/19/18 PLAN OF CARE VITAL SIGNS MEDICATIONS Medication Instructions Dosage Frequency Start Date End Date Duration Status Hydrocodone-Acetaminophen 10-325 MG Orally 4 times a day 1 tablet as needed for pain 6h Jul, 28 days Active Ambien 10 MG Orally Once a day 1 tablet at bedtime 24h May, 28 days Active RESULTS No Results PROCEDURES No Known procedures INSTRUCTIONS MEDICATIONS ADMINISTERED No Known Medications MEDICAL (GENERAL) HISTORY Type Description Date Medical History hypogonadism Medical History hyperlipidemia Medical History pre-diabetic Medical History chronic pain Medical History COPD Surgical History skin cancer 1999 Hospitalization History surgery Hospitalization History MRSA infection 05/2015
--- OUTSIDE RECORDS SUMMARY | 2018-10-30 16:44 | XMS REPORT ---
Author Author NIXON RIGGS Organization [facility] Address [address] [place] [address] Care Team Providers Care Assistant Portfolio Manager Name Role Phone NIXON RIGGS Unavailable PROBLEMS Type Condition ICD9-CM Code KUW76-RT Code Onset Dates Condition Status SNOMED Code Problem Hypertriglyceridemia E78.1 Active 294770090 Problem 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 Active 75986810 Problem Family history of diabetes mellitus Z83.3 Active 594616607 Problem History of MRSA infection Z86.14 Active 162127034 Problem Chronic pain G89.29 Active 89346166 Problem Dysthymia F34.1 Active 68686713 Problem Insomnia, unspecified type G47.00 Active 564701431 Problem Chronic obstructive pulmonary disease, unspecified COPD type J44.9 Active 55331941 Problem Osteoarthritis M19.90 Active 002952870 Problem Primary insomnia F51.01 Active 6064724 Problem Essential hypertension I10 Active 41483078 ALLERGIES No Known Allergies ENCOUNTERS Encounter Location Date Diagnosis [place] [address] [address]- [address] Sep, [place] [address] 66[address]- [address] 2018 Seborrheic keratoses L82.1 and Sebaceous cyst L72.3 [place] [id number] [place] [address] 17623- 3220 16 Aug, 2018 Chronic pain G89.29 and Insomnia, unspecified type G47.[address] [address]- 4048 18 Jul, 2018 Seborrheic keratoses L82.1 [place] [address] 74056- 5983 14 Jul, 2018 Chronic pain G89.29 and Insomnia, unspecified type G47.00 [place] [address] [place] [id number] [place] [address] 03710- 5298 Jun, Chronic pain G89.29 and Insomnia, unspecified type G47.00 [place] [address] [place] [id number] [place] [address] 36848- 0850 Jun, Seborrheic keratoses L82.1 [place] [address] [place] 678680- 4167 May, Dysthymia F34.1 ; Chronic obstructive pulmonary disease, unspecified COPD type J44.9 ; Chronic pain G89.29 ; Insomnia, unspecified type G47.00 ; BMI 40.0-44.9, adult Z68.41 and Other seborrheic keratosis L82.1 [place] [address] 60481- 4921 May, Chronic pain G89.29 and Insomnia, unspecified type G47.00 [place] [address] 88157- 5028 Apr, Hypertriglyceridemia E78.1 [place] [address] 98056- 1150 Apr, Chronic pain G89.29 and Insomnia, unspecified type G47.00 [place] [address] [place] [id number] [place] [address] 16330- 0680 Apr, 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 ; Hypertriglyceridemia E78.1 and Fatigue, unspecified type R53.83 [place] [address] 87967- 8003 Apr, 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 ; Chronic pain G89.29 ; Primary insomnia F51.01 ; Chronic obstructive pulmonary disease, unspecified COPD type J44.9 ; Dysthymia F34.1 ; Hypertriglyceridemia E78.1 ; Fatigue, unspecified type R53.83 and Rash R21 [place] [address] 23745- 1079 March, Chronic pain G89.29 and Insomnia, unspecified type G47.00 [facility] [address] [place] [id number] [place] [address] 25873- 0878 March, Insomnia, unspecified type G47.00 [facility] [address] [place] [id number] [place] [address] 54351- 6462 Feb, Chronic pain G89.29 [facility] [address] [place] [id number] [place] [address] 94439- 1427 Feb, Chronic pain G89.29 [facility] [address] [place] [id number] [place] [address] 96428- 6822 Jan, Chronic pain G89.29 [facility] [address] [place] [id number] [place] [address] 40953- 7985 Dec, Chronic pain G89.29 [facility] [address] [place] [id number] [place] [address] 19730- 9211 Nov, Chronic pain G89.29 and Insomnia, unspecified type G47.00 [facility] [address] [place] [id number] [place] [address] 28203- 0324 Oct, Insomnia, unspecified type G47.00 ; Chronic pain G89.29 and Colon cancer screening Z12.11 [facility] [address] [place] [id number] [place] [address] 07593- 9426 Oct, Chronic pain G89.29 [facility] [address] [place] [id number] [place] [address] 93537- 2271 Sep, Chronic pain G89.29 and Insomnia, unspecified type G47.00 [facility] [id number] [place] [address] 59842- 9766 Sep, Chronic pain G89.29 [facility] [address] [place] [id number] [place] [address] 35823- 6842 Sep, [facility] [address] [place] [id number] [place] [address] 44184- 8808 Aug, Medicare welcome exam Z00.00 ; Encounter for immunization Z23 ; Colon cancer screening Z12.11 and Encounter for screening for lung cancer Z12.2 [place] [address] [place] [id number] [place] [address] 59839- 4030 Aug, [place] [address] 63441- 8355 Aug, Chronic pain G89.29 and Insomnia, unspecified type G47.00 [place] [address] 98978- 2300 Aug, Hypertriglyceridemia E78.1 [place] [address] 78263- 9211 Jul, Chronic pain G89.29 and Insomnia, unspecified type G47.00 [place] [address] 77843- 1990 Jun, Hypertriglyceridemia E78.1 [place] [address] 25379- 3659 Jun, Chronic pain G89.29 and Insomnia, unspecified type G47.00 [place] [address] [place] [id number] [place] [address] 06853- 8038 Jun, [place] [address] 24623- 2598 Jun, [place] [address] 68582- 2112 May, 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 ; Chronic pain G89.29 ; Insomnia, unspecified type G47.00 and Rash R21 [place] [address] 48400- 2281 May, Chronic pain G89.29 [place] [address] [place] [id number] [place] [address] 56423- 9173 May, Hypertriglyceridemia E78.1 [place] [address] [place] [address]- 0804 Apr, Chronic pain G89.29 [facility] [address] [place] [id number] [place] [address] 56905- 5832 Apr, Chronic pain G89.29 ; 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 ; Hypertriglyceridemia E78.1 and Primary insomnia F51.01 [facility] [address] [place] [id number] [place] [address] 45839- 3962 March, Chronic pain G89.29 [facility] [address] [place] [id number] [place] [address] 03832- 8316 March, Chronic pain G89.29 [facility] [address] 18561- 0166 Feb, [facility] [address] [place] [id number] [place] [address] 90084- 8417 Feb, Chronic pain G89.29 [facility] [address] [place] [id number] [place] [address] 98355- 4401 Jan, Chronic pain G89.29 [facility] [address] [place] [id number] [place] [address] 24399- 6020 Dec, Chronic pain G89.29 [facility] [address] [place] [id number] [place] [address] 42315- 0251 Dec, [facility] [address] [place] [id number] [place] [address] 04023- 7795 Nov, Hypertriglyceridemia E78.1 [facility] [address] [place] [id number] [place] [address] 27783- 1190 Nov, [facility] [address] [place] [id number] [place] [address] 66776- 4659 Nov, Chronic pain G89.29 ; Hypertriglyceridemia E78.1 and Chronic obstructive pulmonary disease, unspecified COPD type J44.9 [facility] [address] [place] [id number] [place] [address] 95242- 6786 Nov, Chronic pain G89.29 [facility] [address] [place] [id number] [place] [address] 30173- 0193 Oct, Chronic pain G89.29 [facility] [address] [place] [id number] [place] [address] 02688- 1724 05 Oct, 2016 [facility] [address] 64111- 6444 Sep, Chronic obstructive pulmonary disease, unspecified COPD type J44.9 and Abscess L02.91 [place] [address] 54735- 8179 16 Sep, 2016 Chronic pain G89.29 [place] [address] 53847- 4833 Aug, Chronic pain G89.29 [place] [address] 82312- 9460 Aug, Chronic pain G89.29 [place] [address] 22698- 6257 Aug, Cutaneous horn L85.8 and Skin tag L91.8 [place] [address] 01633- 3186 Jul, [place] [address] 53677- 6728 Jul, Hypertriglyceridemia E78.1 [place] [address] 58417- 3050 07 Jul, 2016 Other chronic pain G89.29 ; Essential hypertension I10 ; 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 ; Hyperlipidemia, unspecified hyperlipidemia type E78.5 and Cutaneous horn L85.8 [place] [address] [place] [id number] [place] [address] 92280- 7959 Jun, Chronic pain G89.29 [place] [address] [place] [id number] [place] [address] 13092- 6679 May, Chronic pain G89.29 [facility] [address] [address]- 9350 15 May, 2016 [facility] [address] [address]- 7107 May, Skin infection L08.9 [facility] [address] [address]- 3570 29 Apr, 2016 Chronic pain G89.29 [facility] [address] [place] [address] 54142- 6264 Apr, [facility] [address] [address]- 2358 Apr, Chronic pain G89.29 [facility] [address] [address]- 5444 March, [facility] [address] [place] [address] 47720- 2201 Feb, Chronic pain G89.29 ; 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 and Hypertriglyceridemia E78.1 [facility] [address] [address]- 5160 Feb, [facility] [address] [address]- 4879 Jan, [facility] [address] [address]- 6038 Dec, [facility] [address] [address]- 8173 Nov, [facility] [address] [address]- 6602 Oct, [facility] [address] [address]- 9416 Oct, 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 [facility] [address] [address]- 7606 Oct, Other chronic pain G89.29 ; Chronic obstructive pulmonary disease, unspecified COPD type J44.9 ; Insomnia, unspecified type G47.00 ; 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 and Essential hypertension I10 [facility] [address] 05202- 1817 Sep, [facility] [address] [place] [id number] [place] [address] 96501- 3165 Aug, [facility] [address] 84792- 3099 Jul, [facility] [address] 86492- 0482 Jul, [facility] [address] 44299- 1898 Jul, Overweight 278.02 and Hyperinsulinemia 251.1 [facility] [address] 68175- 3326 Jul, [facility] [address] 28669- 0566 Jun, Skin tags, multiple acquired 701.9 [facility] [address] 79502- 2825 Jun, Other chronic pain 338.29 ; Erectile dysfunction 607.84 ; Hyperinsulinemia 251.1 and Hypertension 401.9 [facility] [address] [place] [id number] [place] [address] 15929- 3785 Jun, [facility] [address] 53627- 1195 Jun, [facility] [address] [place] [id number] [place] [address] 26884- 7358 Jun, [facility] [address] 74585- 2400 May, Pure hyperglyceridemia 272.1 [facility] [address] [place] [id number] [place] [address] 97143- 7135 May, Pure hyperglyceridemia 272.1 [facility] [address] [address]- 3845 May, [facility] [address] [place] [id number] [place] [address] 61213- 0558 May, Overgrown toenails 703.8 ; Seborrheic keratosis 702.19 ; Skin tag 701.9 ; Warts, genital 078.11 ; Cramps, extremity 729.82 ; Increased appetite 783.6 and Heat rash 705.1 [facility] [address] [address]- 2450 May, [facility] [address] [place] [id number] [place] [address] 11700- 1746 Apr, [facility] [address] [place] [id number] [place] [address] 96147- 7275 Apr, [facility] [address] [place] [id number] [place] [address] 45724- 9744 March, [facility] [address] [address]- 5953 Feb, [facility] [address] [place] [id number] [address]- 6609 Feb, [facility] [address] [address]- 0196 Jan, [facility] [address] [address]- 6352 Jan, [facility] [address] [address]- 3202 Jan, [facility] [address] [place] [id number] 5938 Jan, [facility] [address] 0097 Jan, [facility] [address] [address] 0218 Jan, [facility] [place] [facility] [address] [id number] [place] [address]- 2492 16 Jan, 2015 [facility] [place] [facility] [address] [id number] [place] [address]- 1916 16 Jan, 2015 [facility] [place] [facility] [address] [facility] [id number] [place] [address]- 7276 10 Jan, 2015 [facility] [place] [facility] [address] [facility] [id number] [place] [address]- 7284 10 Jan, 2015 [facility] [place] [facility] [address] [id number] [place] [address]- 3706 Jan, [facility] [place] [facility] [address] [facility] [id number] [place] [address]- 8456 Jan, [facility] [place] [facility] [address] [facility] [id number] [place] [address]- 2863 Dec, 2014 [facility] [place] [facility] [address] [facility] [id number] [place] [address]- 0979 Dec, 2014 [facility] [place] [facility] [address] [facility] [id number] [place] [address]- 1954 Dec, 2014 [facility] [place] [facility] [address] [facility] [id number], [place] [address]- 5875 Dec, 2014 [facility] [place] [facility] [address] [facility] [id number], [place] [address]- 8060 Dec, 2014 [facility] [place] [facility] [address] [facility] [id number], [place] [address]- 1606 Dec, 2014 [facility] [place] [facility] [address] [facility] [id number][place] [address]- 5058 Dec, 2014 [facility] [place] [facility] [address] [facility] [id number], [place] [address]- 9882 Dec, 2014 [facility] [place] [facility] [address] [facility] [id number], [place] [address]- 9385 Nov, [facility] [place] [facility] [address] [id number] [place] [address]- 3902 Nov, [facility] [place] [facility] [address] [id number] [place] [address]- 1898 Nov, [facility] [place] [facility] [address] [id number] [place] [address]- 0177 Nov, [facility] [place] [facility] [address] [id number] [place] [address]- 3712 Nov, [facility] [place] [facility] [address] [id number] [place] [address]- 8306 Nov, [facility] [place] [facility] [address] [id number] [place] [address]- 0809 Nov, [facility] [place] [facility] [address] [id number] [place] [address]- 7220 Nov, [facility] [place] [facility] [address] [id number] [place] [address]- 3140 Oct, [facility] [place] [facility] [address] [id number] [place] [address]- 6123 Oct, [facility] [place] [facility] [address] [id number] [place] [address]- 0637 Sep, [facility] [place] [facility] [address] [id number] [place] [address]- 8272 Sep, [facility] [place] [facility] [address] [id number] [place] [address]- 4001 Sep, [facility] [place] [facility] [address] [id number] [place] [address]- 1452 Sep, [facility] [place] [facility] [address] [id number] [place] [address]- 4589 Aug, [facility] [place] [facility] [address] [id number] [place] [address]- 1569 Aug, [facility] [place] [facility] [address] [id number] [place] [address]- 8112 Aug, [facility] [place] [facility] [address] [id number] [place] [address]- 4228 Aug, [facility] [place] [facility] [address] [id number] [place] [address]- 2339 Aug, [facility] [place] [facility] [address] [id number] [place] 3700 Aug, [facility] [place] [facility] [address] [id number] [place] [address]- 8658 Aug, [facility] [place] [facility] [address] [id number] [place] [address]- 8809 Aug, [facility] [place] [facility] [address] [id number] [place] [address]- 1576 Jul, [facility] [place] [facility] [address] [id number] [place] [address]- 8340 17 Jul, 2014 [facility] [place] [facility] [address] [id number] [place] [address]- 4637 Jul, [facility] [place] [facility] [address] [id number] [place] [address]- 4481 05 Jul, 2014 [facility] [place] [facility] [address] [id number] [place] [address]- 0169 05 Jul, 2014 [facility] [place] [facility] [address] [id number], [place] [address]- 9180 Jun, [facility] [place] [facility] [address] [id number], [place] [address]- 7310 Jun, [facility] [place] [facility] [address] [id number] [place] [address]- 1505 Jun, [facility] [place] [facility] [address] [id number], [place] [address]- 9410 Jun, [facility] [place] [facility] [address] [id number] [place] [address]- 8178 Jun, [facility] [place] [facility] [address] [id number] [place] [address]- 1289 Jun, [facility] [place] [facility] [address] [id number] [place] [address]- 0414 May, [facility] [place] [facility] [address] [id number] [place] [address]- 4439 May, [facility] [place] [facility] [address] [id number] [place] [address]- 7318 May, [facility] [place] [facility] [address] [id number] [place] [address]- 1302 May, [facility] [place] [facility] [address] [id number] [place] [address]- 6977 Apr, [facility] [place] [facility] [address] [id number] [place] [address]- 6206 Apr, [facility] [place] [facility] [address] [id number] [place] [address]- 8169 Apr, [facility] [place] [facility] [address] [id number] [place] [address]- 0387 Apr, [facility] [place] [facility] [address] [id number] [place] [address]- 1696 Apr, [facility] [place] [facility] [address] [id number] [place] [address]- 5078 Apr, [facility] [place] [facility] [address] [id number] [place] [address]- 4080 March, [facility] [place] [facility] [address] [id number] [place] [address]- 1612 March, [facility] [place] [facility] [address] [id number] [place] [address]- 0962 March, [facility] [place] [facility] [address] [id number] [place] [address]- 2205 March, [facility] [place] [facility] [address] [id number] [place] [address]- 9865 Feb, [facility] [place] [facility] [address] [id number] [place] [address]- 7499 Feb, [facility] [place] [facility] [address] [id number] [place] [address]- 9474 Feb, [facility] [place] [facility] [address] [id number] [place] [address]- 8195 Feb, [facility] [place] [facility] [address] [id number] [place] [address]- 7711 Feb, [facility] [place] [facility] [address] [id number] [place] [address]- 6356 Feb, [facility] [place] [facility] [address] [id number] [place] [address]- 9337 Feb, [facility] [place] [facility] [address] [id number] [place] [address]- 3207 Feb, [facility] [place] [facility] [address] [id number] [place] [address]- 6548 Feb, [facility] [place] [facility] [address] [id number] [place] [address]- 1368 Feb, [facility] [place] [facility] [address] [id number] [place] [address]- 1477 Feb, [facility] [place] [facility] [address] [id number] [place] [address] Feb, [facility] [place] [facility] [address] [id number] [place] [address] Feb, [facility] [place] [facility] [address] [id number] [place] [address] Feb, [facility] [place] [facility] [address] [id number] [place] [address] Feb, [facility] [place] [facility] [address] [id number] [place] [address] Feb, [facility] [place] [facility] [address] [id number] [place] [address] Jan, [facility] [place] [facility] [address] [id number] [place] [address] Jan, [facility] [place] [facility] [address] [id number] [place] [address] Dec, [facility] [place] [facility] [address] [id number] [place] [address] Dec, [facility] [place] [facility] [address] [id number] [place] [address] Dec, [facility] [place] [facility] [address] [id number] [place] [address] Dec, [facility] [place] [facility] [address] [id number] [place] [address] Dec, [facility] [place] [facility] [address] [id number] [place] [address] Dec, [facility] [place] [facility] [address] [id number] [place] [address] Dec, [facility] [place] [facility] [address] [id number] [place] [address] Nov, [facility] [place] [facility] [address] [facility] [id number] [place] [address] Nov, [facility] [place] [facility] [address] [id number] [place] [address] Nov, [facility] [place] [facility] [address] [id number] [place] [address] Nov, [facility] [place] [facility] [address] [id number] [place] [address] Oct, [facility] [place] [facility] [address] [id number] [place] [address] Oct, [facility] [place] [facility] [address] [id number], [place] [address] Sep, [facility] [place] [facility] [address] [id number] [place] [address] Sep, [facility] [place] [facility] [address] [id number] [place] [address] Aug, [facility] [place] [facility] [address] [id number] [place] [address] Aug, [facility] [place] [facility] [address] [id number] [place] [address] Aug, [facility] [place] [facility] [address] [id number] [place] [address]- [address] Aug, [facility] [place] [facility] [address] [id number] [place] [address] Aug, [facility] [place] [facility] [address] [id number] [place] [address] Aug, [facility] [place] [facility] [address] [id number] [place] [address] Aug, [facility] [place] [facility] [address] [id number] [place] [address] Aug, [facility] [place] [facility] [address] [id number] [place] [address] Aug, [facility] [place] [facility] [address] [id number] [place] [address]- [address] Aug, [facility] [place] [facility] [address] [id number] [place] [address] Jun, [facility] [place] [facility] [address] [id number] [place] [address] Jun, [facility] [place] [facility] [address] [id number] [place] [address] May, [facility] [place] [facility] [address] [id number] [place] [address] Apr, [facility] [place] [facility] [address] [id number] [place] [address] Apr, [facility] [address] [id number] [place] [address] March, [facility] [facility] [address] [id number] [place] [address] Feb, [facility] [place] [facility] [address] [id number] [place] [address] Jan, [facility] [facility] [address] [id number] [place] [address] Jan, [facility] [place] [facility] [address] [id number] [place] [address] Dec, [facility] [place] [facility] [address] [id number] [place] [address] Dec, [facility] [address] [id number] [place] [address] Nov, [facility] [address] [id number] [place] [address] Jul, [facility] [address] [id number] [place] [address] Jul, [facility] [facility] [address] [id number] [place] [address] Jun, [facility] [address] [id number] [place] [address] May, [facility] [place] [facility] [address] [id number] [place] [address] May, [facility] [place] [facility] [address] [id number] [place] [address] May, [facility] [place] [facility] [address] [id number] [place] [address] May, [facility] [place] [facility] [address] [id number] [place] [address] May, [facility] [place] [facility] [address] [facility] [id number] [place] [address] May, [facility] [id number] [address] May, [facility] [address] [id number] [address] Apr, [facility] [address] [id number] [address] Apr, [facility] [address] [id number] [address] Apr, [facility] [id number], [place] [address] Apr, IMMUNIZATIONS No Known Immunizations SOCIAL HISTORY Never Assessed REASON FOR VISIT seborrheic keratosis PLAN OF CARE Activity Details Follow Up 4 Weeks Reason:jostin cyst removal Future/Pending Procedure CRYOTHERAPY OF SKIN VITAL SIGNS Height 66 in 2018-09-28 Weight 246.1 lbs 2018-09-28 Temperature 98.0 degrees Fahrenheit 2018-09-28 Heart Rate 70 bpm 2018-09-28 Respiratory Rate 20 2018-09-28 BMI 39.72 kg/m2 2018-09-28 Blood pressure systolic 138 mmHg 2018-09-28 Blood pressure diastolic 70 mmHg 2018-09-28 MEDICATIONS Medication Instructions Dosage Frequency Start Date End Date Duration Status Oxygen N/A 1 1/2 l at hs Once a day as directed 24h Oct, Active Ventolin HFA 108 (90 Base) MCG/ACT Inhalation every 6 hrs 2 puffs as needed 6h Apr, Active Symbicort 160-4.5 MCG/ACT INHALE TWO PUFFS BY MOUTH TWICE DAILY IN THE MORNING AND EVENING Active Viagra 100 MG Orally Once a day prn 1 tablet as needed 10 Active Hydrocodone-Acetaminophen 10-325 MG Orally 4 times a day 1 tablet as needed for pain 6h Aug, 28 days Active Ambien 10 MG Orally Once a day 1 tablet at bedtime 24h May, 28 days Active MetFORMIN HCl ER 500 mg Orally 2 times a day 2 tablet 12h Apr, Active Lovastatin 40 mg Orally Once a day 1 tablet with the evening meal 24h Apr, 30 day(s) Active RESULTS No Results PROCEDURES Procedure Date Ordered Result Body Site CRYOTHERAPY OF SKIN Sep 28, 2018 INSTRUCTIONS MEDICATIONS ADMINISTERED No Known Medications MEDICAL (GENERAL) HISTORY Type Description Date Medical History hypogonadism Medical History hyperlipidemia Medical History pre-diabetic Medical History chronic pain Medical History COPD Surgical History skin cancer 1999 Hospitalization History surgery Hospitalization History MRSA infection 05/2015
--- OUTSIDE RECORDS SUMMARY | 2018-10-30 16:45 | XMS REPORT ---
Author Author NIXON RIGGS Organization [facility] Address [address] [place] [address] Care Team Providers Care Veneer Stacker Name Role Phone KEELY NIXON Unavailable PROBLEMS Type Condition ICD9-CM Code [id number] Code Onset Dates Condition Status SNOMED Code Problem Hypertriglyceridemia E78.1 Active 603134755 Problem 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 Active 10098528 Problem Family history of diabetes mellitus Z83.3 Active 306591403 Problem History of MRSA infection Z86.14 Active 314559740 Problem Chronic pain G89.29 Active 10428964 Problem Dysthymia F34.1 Active 04914457 Problem Insomnia, unspecified type G47.00 Active 210730356 Problem Chronic obstructive pulmonary disease, unspecified COPD type J44.9 Active 83142112 Problem Osteoarthritis M19.90 Active 138828668 Problem Primary insomnia F51.01 Active 2264275 Problem Essential hypertension I10 Active 38319581 ALLERGIES No Known Allergies ENCOUNTERS Encounter Location Date Diagnosis [place] [id number] [place] [address] 02182- 6439 Aug, [place] [id number] [place] [address] 67218- 6872 18 Jul, 2018 Seborrheic keratoses L82.1 [place] [id number] [place] [address] 56438- 7831 Jul, Chronic pain G89.29 and Insomnia, unspecified type G47.00 [place] [address] 84030- 3270 Jun, Chronic pain G89.29 and Insomnia, unspecified type G47.00 [place] [id number] [place] [address] 12390- 8423 Jun, Seborrheic keratoses L82.1 [place] [id number] [place] [address] 01754- 3059 May, Dysthymia F34.1 ; Chronic obstructive pulmonary disease, unspecified COPD type J44.9 ; Chronic pain G89.29 ; Insomnia, unspecified type G47.00 ; BMI 40.0-44.9, adult Z68.41 and Other seborrheic keratosis L82.1 [place] [address] 487967- 2270 May, Chronic pain G89.29 and Insomnia, unspecified type G47.[address] 164637- 8433 Apr, Hypertriglyceridemia E78.1 [place] [address] 88395- 3610 Apr, Chronic pain G89.29 and Insomnia, unspecified type G47.00 [place] [address] 41676- 4928 Apr, 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 ; Hypertriglyceridemia E78.1 and Fatigue, unspecified type R53.[address] 02427- 3004 Apr, 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 ; Chronic pain G89.29 ; Primary insomnia F51.01 ; Chronic obstructive pulmonary disease, unspecified COPD type J44.9 ; Dysthymia F34.1 ; Hypertriglyceridemia E78.1 ; Fatigue, unspecified type R53.83 and Rash R21 [place] [address] 68722- 4361 March, Chronic pain G89.29 and Insomnia, unspecified type G47.00 [place] [id number]- 2135 March, Insomnia, unspecified type G47.00 [place] [address] 14866- 7079 Feb, Chronic pain G89.29 [facility] [address] [address] 6178 Feb, Chronic pain G89.29 [facility] [address] [address] 2926 Jan, Chronic pain G89.29 [facility] [address] [address]- 5298 Dec, Chronic pain G89.29 [facility] [address] [address]- 0447 Nov, Chronic pain G89.29 and Insomnia, unspecified type G47.00 [place] [id number] [place] [address] 84584- 1004 Oct, Insomnia, unspecified type G47.00 ; Chronic pain G89.29 and Colon cancer screening Z12.11 [place] [address] [address]- 2228 Oct, Chronic pain G89.29 [place] [address] [address]- 4234 Sep, Chronic pain G89.29 and Insomnia, unspecified type G47.00 [place] [address] [address]- 0955 Sep, Chronic pain G89.29 [place] [address] [address]- 4035 Sep, [place] [address] [address]- 7312 Aug, Medicare welcome exam Z00.00 ; Encounter for immunization Z23 ; Colon cancer screening Z12.11 and Encounter for screening for lung cancer Z12.2 [facility] [id number] [address] 5874 19 Aug, 2017 [facility] [address] [address]- 0555 Aug, Chronic pain G89.29 and Insomnia, unspecified type G47.00 [facility] [id number] [place] [address] 69582- 9979 Aug, Hypertriglyceridemia E78.1 [facility] [id number] [place] [address] 91204- 9310 Jul, Chronic pain G89.29 and Insomnia, unspecified type G47.00 [facility] [id number] [place] [address] 39784- 9486 Jun, Hypertriglyceridemia E78.1 [place] [address] 48793- 8831 Jun, Chronic pain G89.29 and Insomnia, unspecified type G47.00 [place] [address] 50095- 2325 Jun, [place] [address] 00446- 8904 Jun, [facility] [address] 30099- 6599 May, 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 ; Chronic pain G89.29 ; Insomnia, unspecified type G47.00 and Rash R21 [place] [id number] [place] [address] 13242- 3915 May, Chronic pain G89.29 [place] [id number] [place] [address] 97765- 4574 May, Hypertriglyceridemia E78.1 [facility] [id number] [place] [address] 95137- 3484 Apr, Chronic pain G89.29 [facility] [id number] [place] [address] 40061- 5367 Apr, Chronic pain G89.29 ; 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 ; Hypertriglyceridemia E78.1 and Primary insomnia F51.01 [place] [address] [place] [address]- 5152 March, Chronic pain G89.29 [facility] [id number] [place] [address] 56975- 8649 March, Chronic pain G89.29 [facility] [id number] [place] [address] 34672- 2957 Feb, [facility] [id number] [place] [address] 08520- 2001 Feb, Chronic pain G89.29 [facility] [id number] [place] [address] 70456- 8783 Jan, Chronic pain G89.29 [facility] [id number] [place] [address] 97013- 9297 Dec, Chronic pain G89.29 [facility] [id number] [place] [address] 42559- 7289 Dec, [facility] [id number] [place] [address] 16626- 4266 Nov, Hypertriglyceridemia E78.1 [facility] [id number] [place] [address] 72504- 3204 Nov, [facility] [id number] [place] [address] 99898- 2532 Nov, Chronic pain G89.29 ; Hypertriglyceridemia E78.1 and Chronic obstructive pulmonary disease, unspecified COPD type J44.9 [facility] [id number] [place] [address] 92350- 0799 Nov, Chronic pain G89.29 [facility] [id number] [place] [address] 01415- 6305 Oct, Chronic pain G89.29 [facility] [id number] [place] [address] 30236- 9509 05 Oct, 2016 [facility] [id number] [place] [address] 76981- 6221 Sep, Chronic obstructive pulmonary disease, unspecified COPD type J44.9 and Abscess L02.91 [place] [address] 56023- 9431 Sep, Chronic pain G89.29 [place] [id number] [place] [address] 12829- 8820 Aug, Chronic pain G89.29 [place] [address] 496259- 2529 Aug, Chronic pain G89.29 [place] [address] 55523- 3780 Aug, Cutaneous horn L85.8 and Skin tag L91.8 [place] [address] 34007- 1166 Jul, [place] [address] 43527- 9071 Jul, Hypertriglyceridemia E78.1 [place] [address] 98565- 1167 Jul, Other chronic pain G89.29 ; Essential hypertension I10 ; 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 ; Hyperlipidemia, unspecified hyperlipidemia type E78.5 and Cutaneous horn L85.8 [place] [id number] [place] [address] 17572- 5443 Jun, Chronic pain G89.29 [place] [address] 18826- 9795 May, Chronic pain G89.29 [place] [address] 39294- 6178 May, [place] [address] 91689- 0822 May, Skin infection L08.9 [place] [address] 53365- 7415 Apr, Chronic pain G89.29 [facility] [id number] [place] [address] 61105- 2207 Apr, [facility] [address] 76718- 0865 Apr, Chronic pain G89.29 [facility] [address] 44365- 7699 March, [facility] [address] 80704- 5106 Feb, Chronic pain G89.29 ; 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 and Hypertriglyceridemia E78.1 [facility] [address] 27654- 8131 Feb, [facility] [address] 68046- 0994 Jan, [facility] [address] 69722- 2389 Dec, [facility] [id number] [place] [address] 66341- 7161 Nov, [facility] [address] 20954- 5254 Oct, [facility] [id number] [place] [address] 51592- 0940 Oct, 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 [facility] [id number] [place] [address] 08285- 5965 Oct, Other chronic pain G89.29 ; Chronic obstructive pulmonary disease, unspecified COPD type J44.9 ; Insomnia, unspecified type G47.00 ; 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 and Essential hypertension I10 [facility] [id number] [place] [address] 49248- 7431 Sep, [facility] [id number] [place] [address] 67955- 4545 Aug, [facility] [id number] [place] [address] 57871- 7275 30 Jul, 2015 [facility] [address] 12713- 9226 Jul, [facility] [id number] [place] [address] 40687- 6948 Jul, Overweight 278.02 and Hyperinsulinemia 251.1 [facility] [address] 75130- 3917 Jul, [facility] [id number] [place] [address] 14924- 1180 Jun, Skin tags, multiple acquired 701.9 [facility] [id number] [place] [address] 25202- 3254 Jun, Other chronic pain 338.29 ; Erectile dysfunction 607.84 ; Hyperinsulinemia 251.1 and Hypertension 401.9 [facility] [id number] [place] [address] 08511- 3995 Jun, [facility] [id number] [place] [address] 67839- 7878 Jun, [facility] [id number] [place] [address] 03150- 6314 Jun, [facility] [id number] [place] [address] 87171- 9488 May, Pure hyperglyceridemia 272.1 [facility] [id number] [place] [address] 33295- 9404 May, Pure hyperglyceridemia 272.1 [facility] [id number] [place] [address] 04792- 6020 May, [facility] [id number] [place] [address] 84225- 6891 May, Overgrown toenails 703.8 ; Seborrheic keratosis 702.19 ; Skin tag 701.9 ; Warts, genital 078.11 ; Cramps, extremity 729.82 ; Increased appetite 783.6 and Heat rash 705.1 [facility] [address] [address]- 4976 09 May, 2015 [facility] [id number] [place] [address]- 2546 Apr, [facility] [id number] [place] [address]- 2546 08 Apr, 2015 [facility] [address] [facility] [id number] [place] [address]- 2306 March, [facility] [id number] [place] [address]- 7425 14 Feb, 2015 [facility] [id number] [place] [address]- 9613 Feb, [facility] [id number] [place] [address]- 9009 27 Jan, 2015 [facility] [id number] [place] [address]- 9220 27 Jan, 2015 [facility] [id number] [place] [address]- 9242 27 Jan, 2015 [facility] [address], [place] [address]- 6582 27 Jan, 2015 [facility] [address], [place] [address]- 3945 19 Jan, 2015 [facility] [id number] [address]- 2546 19 Jan, 2015 [facility] [address], [place] [address]- 2546 16 Jan, 2015 [facility] [id number] [address]- 2546 16 Jan, 2015 [facility] [address], [place] [address]- 6314 Jan, [facility] [place] [facility] [address] [id number] [place] [address]- 9337 Jan, [facility] [place] [facility] [address] [id number] [place] [address]- 1550 Jan, [facility] [place] [facility] [address] [id number] [place] [address]- 8164 Jan, [facility] [place] [facility] [address] [id number] [place] [address]- 1413 Dec, 2014 [facility] [place] [facility] [address] [id number] [place] [address]- 1957 Dec, 2014 [facility] [place] [facility] [address] [id number] [place] [address]- 9161 Dec, 2014 [facility] [place] [facility] [address] [id number] [place] [address]- 5186 Dec, 2014 [facility] [place] [facility] [address] [id number] [place] [address]- 2356 Dec, [facility] [place] [facility] [address] [id number] [place] [address]- 9439 Dec, [facility] [place] [facility] [address] [id number] [place] [address]- 9626 Dec, [facility] [place] [facility] [address] [id number] [place] [address]- 1317 Dec, [facility] [place] [facility] [address] [id number] [place] [address]- 6808 Nov, [facility] [place] [facility] [address] [id number] [place] [address]- 8484 Nov, [facility] [place] [facility] [address] [id number] [place] [address]- 1044 Nov, [facility] [place] [facility] [address] [facility] [id number] [place] [address]- 1838 Nov, [facility] [place] [facility] [address] [id number] [place] [address]- 0175 Nov, [facility] [place] [facility] [address] [id number] [place] [address]- 9674 Nov, [facility] [place] [facility] [address] [id number] [place] [address]- 9000 Nov, [facility] [place] [facility] [address] [id number] [place] [address]- 7479 Nov, [facility] [place] [facility] [address] [id number] [place] [address]- 9578 Oct, [facility] [place] [facility] [address] [id number] [place] [address]- 6168 Oct, [facility] [place] [facility] [address] [id number] [place] [address]- 2258 Sep, [facility] [place] [facility] [address] [id number] [place] [address]- 0928 Sep, [facility] [place] [facility] [address] [id number] [place] [address]- 1779 Sep, [facility] [place] [facility] [address] [id number] [place] [address]- 7164 Sep, [facility] [place] [facility] [address] [facility] [id number] [place] [address]- 2649 Aug, [facility] [place] [facility] [address] [id number] [place] [address]- 7572 Aug, [facility] [place] [facility] [address] [id number] [place] [address]- 0860 Aug, [facility] [place] [facility] [address] [id number] [place] [address]- 2264 Aug, [facility] [place] [facility] [address] [id number] [place] [address]- 9921 Aug, [facility] [place] [facility] [address] [id number] [place] [address]- 2129 Aug, [facility] [place] [facility] [address] [id number] [place] [address]- 9630 Aug, [facility] [place] [facility] [address] [id number] [place] [address]- 2932 Aug, [facility] [place] [facility] [address] [id number] [place] [address]- 3385 Jul, [facility] [place] [facility] [address] [id number] [place] [address]- 4705 Jul, [facility] [place] [facility] [address] [id number] [place] [address]- 7590 Jul, [facility] [place] [facility] [address] [id number] [place] [address]- 0230 Jul, [facility] [place] [facility] [address] [id number] [place] [address]- 0557 Jul, [facility] [place] [facility] [address] [id number] [place] [address]- 1728 Jun, [facility] [place] [facility] [address] [id number] [place] [address]- 0305 Jun, [facility] [place] [facility] [address] [id number] [place] [address]- 0323 Jun, [facility] [place] [facility] [address] [id number] [place] [address]- 5968 Jun, [facility] [place] [facility] [address] [id number] [address]- 6117 Jun, [facility] [place] [facility] [address] [id number] [place] [address]- 7583 Jun, [facility] [place] [facility] [address] [id number] [place] [address]- 7550 May, [facility] [place] [facility] [address] [id number] [place] [address]- 4913 May, [facility] [place] [facility] [address] [id number] [place] [address]- 8503 May, [facility] [place] [facility] [address] [id number] [place] [address]- 9110 May, [facility] [place] [facility] [address] [id number] [place] [address]- 3585 Apr, [facility] [place] [facility] [address] [id number] [place] [address]- 8398 Apr, [facility] [place] [facility] [address] [id number] [place] [address]- 0905 Apr, [facility] [place] [facility] [address] [id number] [place] [address]- 5669 Apr, [facility] [place] [facility] [address] [id number] [place] [address]- 8984 Apr, [facility] [place] [facility] [address] [id number] [place] [address]- 9048 Apr, [facility] [place] [facility] [address] [id number] [place] [address]- 3749 March, [facility] [place] [facility] [address] [id number] [place] [address]- 9059 March, [facility] [place] [facility] [address] [id number] [place] [address]- 9642 March, [facility] [place] [facility] [address] [id number] [place] [address]- 5523 March, [facility] [place] [facility] [address] [id number] [place] [address]- 4780 Feb, [facility] [place] [facility] [address] [id number] [place] [address]- 9419 Feb, [facility] [place] [facility] [address] [id number] [place] [address]- 9015 Feb, [facility] [place] [facility] [address] [id number] [place] [address]- 7168 Feb, [facility] [place] [facility] [address] [id number] [place] [address]- 0409 Feb, [facility] [place] [facility] [address] [id number] [place] [address]- 0528 Feb, [facility] [place] [facility] [address] [id number] [place] [address]- 1814 Feb, [facility] [place] [facility] [address] [id number] [place] [address]- 9551 Feb, [facility] [place] [facility] [address] [id number] [place] [address]- 6477 Feb, [facility] [place] [facility] [address] [id number] [place] [address]- 9347 Feb, [facility] [place] [facility] [address] [id number] [place] [address]- 6679 Feb, [facility] [place] [facility] [address] [id number] [place] [address]- 9426 Feb, [facility] [place] [facility] [address] [id number] [place] [address]- 4295 Feb, [facility] [place] [facility] [address] [id number] [place] [address]- 7727 Feb, [facility] [place] [facility] [address] [id number] [place] [address]- 9177 Feb, [facility] [place] [facility] [address] [id number] [place] [address]- 7309 Feb, [facility] [place] [facility] [address] [id number] [place] [address] Jan, [facility] [place] [facility] [address] [id number] [place] [address] Jan, [facility] [place] [facility] [address] [id number] [place] [address] Dec, [facility] [place] [facility] [address] [id number] [place] [address] Dec, [facility] [address] [id number] [place] [address] Dec, [facility] [place] [facility] [address] [id number] [place] [address] Dec, [facility] [place] [facility] [address] [id number] [place] [address] Dec, [facility] [place] [facility] [address] [id number] [place] [address] Dec, [facility] [place] [facility] [address] [id number] [place] [address] Dec, [facility] [place] [facility] [address] [id number] [place] [address] Nov, [facility] [place] [facility] [address] [id number] [place] [address] Nov, [facility] [place] [facility] [address] [id number] [place] [address] Nov, [facility] [place] [facility] [address] [facility] [id number] [place] [address] Nov, [facility] [place] [facility] [address] [facility] [id number] [place] [address] Oct, [facility] [place] [facility] [address] [id number] [place] [address] Oct, [facility] [place] [facility] [address] [id number], [place] [address] Sep, [facility] [place] [facility] [address] [id number] [place] [address] Sep, [facility] [place] [facility] [address] [id number] [place] [address] Aug, [facility] [place] [facility] [address] [id number], [place] [address] Aug, [facility] [place] [facility] [address] [id number] [place] [address] Aug, [facility] [place] [facility] [address] [id number] [place] [address] Aug, [facility] [place] [facility] [address] [id number] [place] [address] Aug, [facility] [place] [facility] [address] [id number] [place] [address] Aug, [facility] [place] [facility] [address] [id number] [place] [address] Aug, [facility] [place] [facility] [address] [id number] [place] [address] Aug, [facility] [place] [facility] [address] [id number] [place] [address] Aug, [facility] [place] [facility] [address] [id number] [place] [address]- [address]64 Aug, [facility] [place] [facility] [address] [id number] [place] [address] Jun, [facility] [place] [facility] [address] [id number] [place] [address] Jun, [facility] [place] [facility] [address] [id number] [place] [address] May, [facility] [place] [facility] [address] [id number] [place] [address] Apr, [facility] [place] [facility] [address] [id number] [place] [address] Apr, [facility] [place] [facility] [address] [id number] [place] [address] March, [facility] [place] [facility] [address] [id number] [place] [address] Feb, [facility] [place] [facility] [address] [id number] [place] [address] Jan, [facility] [place] [facility] [address] [id number] [place] [address] Jan, [facility] [place] [facility] [address] [id number] [place] [address] Dec, [facility] [place] [facility] [address] [id number] [place] [address] Dec, [facility] [place] [facility] [address] [id number] [place] [address] Nov, [facility] [place] [facility] [address] [id number] [place] [address] Jul, [facility] [place] [facility] [address] [id number] [place] [address] Jul, [facility] [place] [facility] [address] [id number] [place] [address] Jun, [facility] [place] [facility] [address] [id number] [place] [address] May, [facility] [place] [facility] [address] [id number] [place] [address] May, [facility] [place] [facility] [address] [id number] [place] [id number] May, [facility] [place] [facility] [address] [id number] [place] [address] May, [facility] [place] [facility] [address] [id number] [place] [address] May, [facility] [place] [facility] [address] [id number] [place] [address] May, [facility] [place] [facility] [address] [id number] [place] [address] May, [facility] [place] [facility] [address] [id number] [place] [id number] Apr, [facility] [place] [facility] [address] [facility] [id number] [place] [address] Apr, [facility] [address] [facility] [id number] [place] [address] Apr, [facility] [address] [facility] [id number] [place] [address] Apr, IMMUNIZATIONS No Known Immunizations SOCIAL HISTORY Never Assessed REASON FOR VISIT seborrheic keratosis, -Mesfin [facility] PLAN OF CARE Activity Details Follow Up 4 Weeks Reason:cryo Future/Pending Procedure CRYOTHERAPY OF SKIN VITAL SIGNS Height 66 in 2018-07-20 Weight 252.0 lbs 2018-07-20 Temperature 98.2 degrees Fahrenheit 2018-07-20 Heart Rate 67 bpm 2018-07-20 Respiratory Rate 20 2018-07-20 Oximetry 92 % 2018-07-20 BMI 40.67 kg/m2 2018-07-20 Blood pressure systolic 140 mmHg 2018-07-20 Blood pressure diastolic 72 mmHg 2018-07-20 MEDICATIONS Medication Instructions Dosage Frequency Start Date End Date Duration Status Viagra 100 MG Orally Once a day prn 1 tablet as needed 10 Active Oxygen N/A 1 1/2 l at hs Once a day as directed 24h Oct, Active Symbicort 160-4.5 MCG/ACT INHALE TWO PUFFS BY MOUTH TWICE DAILY IN THE MORNING AND EVENING Active Lovastatin 40 mg Orally Once a day 1 tablet with the evening meal 24h Apr, 30 day(s) Active Hydrocodone-Acetaminophen 10-325 MG Orally 4 times a day 1 tablet as needed for pain 6h May, 28 days Active Ambien 10 MG Orally Once a day 1 tablet at bedtime 24h May, 28 days Active Ventolin HFA 108 (90 Base) MCG/ACT Inhalation every 6 hrs 2 puffs as needed 6h Apr, Active MetFORMIN HCl ER 500 mg Orally 2 times a day 2 tablet 12h Apr, Active RESULTS No Results PROCEDURES Procedure Date Ordered Result Body Site CRYOTHERAPY OF SKIN Jul 20, 2018 INSTRUCTIONS MEDICATIONS ADMINISTERED No Known Medications MEDICAL (GENERAL) HISTORY Type Description Date Medical History hypogonadism Medical History hyperlipidemia Medical History pre-diabetic Medical History chronic pain Medical History COPD Surgical History skin cancer 1999 Hospitalization History surgery Hospitalization History MRSA infection 05/2015
--- OUTSIDE RECORDS SUMMARY | 2018-10-30 16:45 | XMS REPORT ---
Author Author JOSÉ LUIS RODRÍGUEZ Organization [facility] Address [address] [place] [address] Care Team Providers Care Sexual Assault Social Worker Name Role Phone JOSÉ LUIS RODRÍGUEZ Unavailable PROBLEMS Type Condition ICD9-CM Code TTH50-BF Code Onset Dates Condition Status SNOMED Code Problem Hypertriglyceridemia E78.1 Active 204614150 Problem 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 Active 95802489 Problem Family history of diabetes mellitus Z83.3 Active 905321960 Problem History of MRSA infection Z86.14 Active 682610094 Problem Chronic pain G89.29 Active 98953049 Problem Dysthymia F34.1 Active 40895810 Problem Insomnia, unspecified type G47.00 Active 616428918 Problem Chronic obstructive pulmonary disease, unspecified COPD type J44.9 Active 43165431 Problem Osteoarthritis M19.90 Active 785253046 Problem Primary insomnia F51.01 Active 8084533 Problem Essential hypertension I10 Active 82966476 ALLERGIES No Information ENCOUNTERS Encounter Location Date Diagnosis [facility] [facility] [id number] [place] [address] 23065- 8780 Aug, [facility] [facility] [id number] [address] 33802- 8203 18 Jul, 2018 Seborrheic keratoses L82.1 [facility] [facility] [id number] [address] 29285- 5797 Jul, Chronic pain G89.29 and Insomnia, unspecified type G47.00 [place] [facility] [address] 59674- 7865 Jun, Chronic pain G89.29 and Insomnia, unspecified type G47.00 [facility] [facility] [id number] [address] 27919- 2452 Jun, Seborrheic keratoses L82.1 [facility] [facility] [id number] [address] 43240- 4981 May, Dysthymia F34.1 ; Chronic obstructive pulmonary disease, unspecified COPD type J44.9 ; Chronic pain G89.29 ; Insomnia, unspecified type G47.00 ; BMI 40.0-44.9, adult Z68.41 and Other seborrheic keratosis L82.1 [facility] [address] 85133- 4606 May, Chronic pain G89.29 and Insomnia, unspecified type G47.00 [place] [address] 97645- 6183 Apr, Hypertriglyceridemia E78.1 [facility] [facility] [address] 24063- 0338 Apr, Chronic pain G89.29 and Insomnia, unspecified type G47.00 [place] [address] 76541- 4743 Apr, 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 ; Hypertriglyceridemia E78.1 and Fatigue, unspecified type R53.83 [facility] [address] 34564- 7858 Apr, 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 ; Chronic pain G89.29 ; Primary insomnia F51.01 ; Chronic obstructive pulmonary disease, unspecified COPD type J44.9 ; Dysthymia F34.1 ; Hypertriglyceridemia E78.1 ; Fatigue, unspecified type R53.83 and Rash R21 [facility] [address] 96535- 8795 March, Chronic pain G89.29 and Insomnia, unspecified type G47.00 [place] [id number] [place] [address] March, Insomnia, unspecified type G47.00 [facility] [address] 44890- 4142 Feb, Chronic pain G89.29 [facility] [address] [address] 4852 Feb, Chronic pain G89.29 [facility] [address] [address]- 5708 Jan, Chronic pain G89.29 [facility] [address] [address] 55873- 1069 Dec, Chronic pain G89.29 [facility] [id number] [address] 67370- 3905 Nov, Chronic pain G89.29 and Insomnia, unspecified type G47.00 [place] [id number] [address] 08172- 7581 Oct, Insomnia, unspecified type G47.00 ; Chronic pain G89.29 and Colon cancer screening Z12.11 [place] [id number] [address] 51204- 8175 Oct, Chronic pain G89.29 [facility] [id number] [address] 25445- 8272 Sep, Chronic pain G89.29 and Insomnia, unspecified type G47.00 [facility] [facility] [address] [address]- 3572 Sep, Chronic pain G89.29 [facility] [address] [address] 20378- 0745 Sep, [facility] [address] [address] 82374- 7790 Aug, Medicare welcome exam Z00.00 ; Encounter for immunization Z23 ; Colon cancer screening Z12.11 and Encounter for screening for lung cancer Z12.2 [facility] [address] [address]- 5724 19 Aug, 2017 [facility] [id number] [address] 17407- 9177 Aug, Chronic pain G89.29 and Insomnia, unspecified type G47.00 [facility] [id number] [address] 17166- 9693 Aug, Hypertriglyceridemia E78.1 [facility] [id number] [address] 16658- 3194 Jul, Chronic pain G89.29 and Insomnia, unspecified type G47.00 [facility] [id number] [address] 34320- 8093 Jun, Hypertriglyceridemia E78.1 [facility] [address] 10036- 6713 Jun, Chronic pain G89.29 and Insomnia, unspecified type G47.00 [facility] [id number] [address] 92586- 0972 Jun, [facility] [address] 25919- 1335 Jun, [facility] [id number] [address] 96365- 8189 May, 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 ; Chronic pain G89.29 ; Insomnia, unspecified type G47.00 and Rash R21 [facility] [id number] [address] 71562- 7565 May, Chronic pain G89.29 [facility] [id number] [address] 83566- 7540 May, Hypertriglyceridemia E78.1 [place] [id number] [address] 69046- 2069 Apr, Chronic pain G89.29 [facility] [id number] [address] 02557- 7531 Apr, Chronic pain G89.29 ; 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 ; Hypertriglyceridemia E78.1 and Primary insomnia F51.01 [facility] [address] [address]- 8455 March, Chronic pain G89.29 [facility] [address] [address] 06389- 9078 March, Chronic pain G89.29 [facility] [address] [address]- 6395 Feb, [facility] [id number] [address] 90845- 8962 Feb, Chronic pain G89.29 [facility] [address] [address] 92221- 4129 Jan, Chronic pain G89.29 [facility] [id number] [address] 04558- 6280 07 Dec, 2016 Chronic pain G89.29 [facility] [id number] [address] 67256- 5045 Dec, [facility] [address] [address] 77364- 6340 Nov, Hypertriglyceridemia E78.1 [facility] [id number] [address] 85043- 6822 Nov, [facility] [address] [address] 98083- 6002 Nov, Chronic pain G89.29 ; Hypertriglyceridemia E78.1 and Chronic obstructive pulmonary disease, unspecified COPD type J44.9 [facility] [address] [address]- 7776 Nov, Chronic pain G89.29 [facility] [id number] [address] 72442- 8356 Oct, Chronic pain G89.29 [facility] [address] 6561 Oct, [facility] [address] 07759- 1885 Sep, Chronic obstructive pulmonary disease, unspecified COPD type J44.9 and Abscess L02.91 [place] [address] 36924- 8045 Sep, Chronic pain G89.29 [place] [address] 52960- 8125 Aug, Chronic pain G89.29 [facility] [address] 50732- 8248 Aug, Chronic pain G89.29 [place] [address] 79317- 9371 Aug, Cutaneous horn L85.8 and Skin tag L91.8 [place] [address] 97043- 3187 Jul, [place] [address] 82940- 4398 Jul, Hypertriglyceridemia E78.1 [place] [address] 88595- 3307 07 Jul, 2016 Other chronic pain G89.29 ; Essential hypertension I10 ; 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 ; Hyperlipidemia, unspecified hyperlipidemia type E78.5 and Cutaneous horn L85.8 [place] [id number] [address] 03622- 9867 Jun, Chronic pain G89.29 [place] [address] 46039- 0791 May, Chronic pain G89.29 [place] [address] 45405- 9499 May, [place] [address] 14367- 1445 May, Skin infection L08.9 [place] [address] 14738- 4342 Apr, Chronic pain G89.29 [facility] [id number] [address] 45561- 9552 Apr, [facility] [address] 48173- 3636 Apr, Chronic pain G89.29 [facility] [address] 67621- 0958 March, [facility] [address] 38719- 1801 Feb, Chronic pain G89.29 ; 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 and Hypertriglyceridemia E78.1 [facility] [address] 91813- 0147 Feb, [facility] [address] 27195- 6071 Jan, [facility] [address] 53569- 2466 Dec, [facility] [address] 50538- 8409 Nov, [facility] [address] 08255- 2679 Oct, [facility] [id number] [address] 66719- 9330 Oct, 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 [facility] [address] 68615- 6638 Oct, Other chronic pain G89.29 ; Chronic obstructive pulmonary disease, unspecified COPD type J44.9 ; Insomnia, unspecified type G47.00 ; 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 and Essential hypertension I10 [facility] [id number] [address] 51082- 7814 Sep, [facility] [address] 31383- 1952 Aug, [facility] [address] [address] 99666- 2597 30 Jul, 2015 [facility] [id number] [address] 49138- 0618 Jul, [facility] [id number] [address] 45076- 2333 Jul, Overweight 278.02 and Hyperinsulinemia 251.1 [facility] [id number] [address] 42101- 1894 Jul, [facility] [id number] [address] 34847- 9610 Jun, Skin tags, multiple acquired 701.9 [facility] [id number] [address] 13412- 4986 Jun, Other chronic pain 338.29 ; Erectile dysfunction 607.84 ; Hyperinsulinemia 251.1 and Hypertension 401.9 [facility] [id number] [address] 59302- 4501 Jun, [facility] [id number] [address] 48180- 3753 Jun, [facility] [id number] [address] 74133- 6300 Jun, [facility] [id number] [address] 41539- 1616 May, Pure hyperglyceridemia 272.1 [facility] [address] [address] 34137- 2548 May, Pure hyperglyceridemia 272.1 [facility] [id number] [address] 47852- 2665 May, [facility] [id number] [address] 99644- 0811 May, Overgrown toenails 703.8 ; Seborrheic keratosis 702.19 ; Skin tag 701.9 ; Warts, genital 078.11 ; Cramps, extremity 729.82 ; Increased appetite 783.6 and Heat rash 705.1 [facility] [address] [address]- 7826 May, [facility] [id number] [address]- 1853 Apr, [facility] [id number] [address] 73110- 5039 08 Apr, 2015 [facility] [id number] [address]- 7034 March, [facility] [id number] [address] 42282- 8791 14 Feb, 2015 [facility] [id number] [address] 78852- 7878 Feb, [facility] [id number] [address]- 4366 27 Jan, 2015 [facility] [address] [address]- 5398 27 Jan, 2015 [facility] [address] [address]- 6338 27 Jan, 2015 [facility] [address]- 5685 27 Jan, 2015 [facility] [address] [address]- 1429 Jan, [facility] [address] [address]- 5619 19 Jan, 2015 [facility] [address] [address]- 8036 16 Jan, 2015 [facility] [id number] [address]- 0806 16 Jan, 2015 [facility] [id number] [address]- 7081 Jan, [facility] [place] [facility] [address] [id number] [place] [address]- 5010 Jan, [facility] [place] [facility] [address] [id number] [place] [address]- 7508 Jan, [facility] [place] [facility] [address] [facility] [id number] [place] [address]- 4964 Jan, [facility] [place] [facility] [address] [id number] [place] [address]- 1964 Dec, 2014 [facility] [place] [facility] [address] [id number] [place] [address]- 9299 Dec, 2014 [facility] [place] [facility] [address] [id number] [place] [address]- 7403 Dec, 2014 [facility] [place] [facility] [address] [facility] [id number] [place] [address]- 8993 Dec, 2014 [facility] [place] [facility] [address] [facility] [id number] [place] [address]- 6899 Dec, 2014 [facility] [place] [facility] [address] [facility] [id number] [place] [address]- 5921 Dec, 2014 [facility] [place] [facility] [address] [facility] [id number] [place] [address]- 6089 Dec, [facility] [place] [facility] [address] [facility] [id number] [place] [address]- 1712 Dec, [facility] [place] [facility] [address] [facility] [id number] [place] [address]- 2295 Nov, [facility] [place] [facility] [address] [id number] [place] [address]- 2539 Nov, [facility] [place] [facility] [address] [facility] [id number] [place] [address]- 1813 Nov, [facility] [place] [facility] [address] [facility] [id number] [place] [address]- 2920 Nov, [facility] [place] [facility] [address] [id number] [place] [address]- 4797 Nov, [facility] [place] [facility] [address] [id number] [place] [address]- 8515 Nov, [facility] [place] [facility] [address] [id number] [place] [address]- 8421 Nov, [facility] [place] [facility] [address] [id number] [place] [address]- 9936 Nov, [facility] [place] [facility] [address] [id number] [place] [address]- 2882 Oct, [facility] [place] [facility] [address] [id number] [place] [address]- 9852 Oct, [facility] [place] [facility] [address] [id number] [place] [address]- 9060 Sep, [facility] [place] [facility] [address] [id number] [place] [address]- 6657 Sep, [facility] [place] [facility] [address] [id number] [place] [address]- 7577 Sep, [facility] [place] [facility] [address] [id number] [place] [address]- 0839 Sep, [facility] [place] [facility] [address] [id number] [place] [address]- 7478 Aug, [facility] [place] [facility] [address] [id number] [place] [address]- 9177 Aug, [facility] [place] [facility] [address] [id number] [place] [address]- 7549 Aug, [facility] [place] [facility] [address] [id number] [place] [address]- 0335 Aug, [facility] [place] [facility] [address] [id number] [place]- 6256 Aug, [facility] [place] [facility] [address] [id number] [place] [address]- 5720 Aug, [facility] [place] [facility] [address] [id number] [place] [address]- 8602 Aug, [facility] [place] [facility] [address] [id number] [place] [address]- 4670 Aug, [facility] [place] [facility] [address] [id number] [place] [address]- 3368 Jul, [facility] [place] [facility] [address] [id number] [place] [address]- 9280 Jul, [facility] [place] [facility] [address] [id number] [place] [address]- 0601 Jul, [facility] [place] [facility] [address] [id number] [place] [address]- 7933 Jul, [facility] [place] [facility] [address] [id number] [place] [address]- 1459 Jul, [facility] [place] [facility] [address] [id number] [place] [address]- 3412 Jun, [facility] [place] [facility] [address] [id number] [place] [address]- 4093 Jun, [facility] [place] [facility] [address] [id number] [place] [address]- 1302 Jun, [facility] [place] [facility] [address] [id number] [place] [address]- 7230 Jun, [facility] [place] [facility] [address] [id number] [place] [address]- 7871 Jun, [facility] [place] [facility] [address] [id number] [place] [address]- 7651 Jun, [facility] [place] [facility] [address] [id number] [place] [address]- 9778 May, [facility] [place] [facility] [address] [id number] [place] [address]- 3705 May, [facility] [place] [facility] [address] [id number] [place] [address]- 3386 May, [facility] [place] [facility] [address] [id number] [place] [address]- 3572 May, [facility] [place] [facility] [address] [id number] [place] [address]- 9528 Apr, [facility] [place] [facility] [address] [id number] [place] [address]- 9613 Apr, [facility] [place] [facility] [address] [id number] [place] [address]- 6315 Apr, [facility] [place] [facility] [address] [id number] [place] [address]- 4227 Apr, [facility] [place] [facility] [address] [id number] [place] [address]- 5573 Apr, [facility] [place] [facility] [address] [id number] [place] [address]- 9845 Apr, [facility] [place] [facility] [address] [id number] [place] [address]- 1855 March, [facility] [place] [facility] [address] [id number] [place] [address]- 4709 March, [facility] [place] [facility] [address] [id number] [place] [address]- 9955 March, [facility] [place] [facility] [address] [id number] [place] [address]- 8391 March, [facility] [place] [facility] [address] [id number] [place] [address] Feb, [facility] [place] [facility] [address] [id number] [place] [address] Feb, [facility] [place] [facility] [address] [id number] [place] [address] Feb, [facility] [place] [facility] [address] [id number] [place] [address] Feb, [facility] [place] [facility] [address] [id number] [place] [address] Feb, [facility] [place] [facility] [address] [id number] [place] [address] Feb, [facility] [place] [facility] [address] [id number] [place] [address] Feb, [facility] [place] [facility] [address] [id number] [place] [address] Feb, [facility] [place] [facility] [address] [id number] [place] [address] Feb, [facility] [place] [facility] [address] [id number] [place] [address] Feb, [facility] [place] [facility] [address] [id number] [place] [address] Feb, [facility] [place] [facility] [address] [id number] [place] [address] Feb, [facility] [place] [facility] [address] [id number] [place] [address] Feb, [facility] [place] [facility] [address] [id number] [place] [address] Feb, [facility] [place] [facility] [address] [id number] [place] [address] Feb, [facility] [place] [facility] [address] [id number] [address] Feb, [facility] [place] [facility] [address] [id number] [place] [address] Jan, [facility] [place] [facility] [address] [id number] [place] [address] Jan, [facility] [place] [facility] [address] [id number] [place] [address] Dec, [facility] [place] [facility] [address] [id number] [place] [address] Dec, [facility] [address] [id number] [place] [address] Dec, [facility] [place] [facility] [address] [id number] [place] [address] Dec, [facility] [place] [facility] [address] [id number] [place] [address] Dec, [facility] [place] [facility] [address] [id number] [place] [address] Dec, [facility] [place] [facility] [address] [id number] [place] [address] Dec, [facility] [place] [facility] [address] [facility] [place] [id number] [place] Nov, [facility] [place] [facility] [address] [id number] [place] [address] Nov, [facility] [place] [facility] [address] [id number] [place] [address] Nov, [facility] [place] [facility] [address] [facility] [place] [facility] [id number] [place] [address] Nov, [facility] [place] [facility] [address] [facility] [place] [facility] [id number] [place] [address] Oct, [facility] [place] [facility] [address] [id number] [place] [address] Oct, [facility] [place] [facility] [address] [id number] [place] [address] Sep, [facility] [place] [facility] [address] [id number] [place] [address] Sep, [facility] [place] [facility] [address] [id number] [place] [address] Aug, [facility] [place] [facility] [address] [id number] [place] [address] Aug, [facility] [place] [facility] [address] [id number] [place] [address] Aug, [facility] [place] [facility] [address] [id number] [place] [address] Aug, [facility] [place] [facility] [address] [id number] [place] [address] Aug, [facility] [place] [facility] [address] [id number] [place] [address] Aug, [facility] [place] [facility] [address] [id number] [place] [address] Aug, [facility] [place] [facility] [address] [id number] [place] [address] Aug, [facility] [place] [facility] [address] [id number] [place] [address] Aug, [facility] [place] [facility] [address] [id number] [place] [address] Aug, [facility] [place] [facility] [address] [id number] [place] [address] Jun, [facility] [place] [facility] [address] [id number] [place] [address] Jun, [facility] [place] [facility] [address] [id number] [place] [address] May, [facility] [place] [facility] [address] [id number] [place] [address] Apr, [facility] [place] [facility] [address] [id number] [place] [address] Apr, [facility] [place] [facility] [address] [id number] [place] [address] March, [facility] [place] [facility] [address] [id number] [place] [address] Feb, [facility] [place] [facility] [address] [id number] [place] [address] Jan, [facility] [address] [id number] [place] [address] Jan, [facility] [place] [facility] [address] [id number] [place] [address] Dec, [facility] [place] [facility] [address] [id number] [place] [address] Dec, [facility] [place] [facility] [address] [id number] [place] [address] Nov, [facility] [place] [facility] [address] [id number] [place] [address] Jul, [facility] [place] [facility] [address] [id number] [place] [address] Jul, [facility] [address] [id number] [place] [address] Jun, [facility] [address] [id number] [place] [address] May, [facility] [place] [facility] [address] [id number] [place] [address] May, [facility] [address] [id number] [place] [address] May, [facility] [place] [facility] [address] [id number] [place] [address] May, [facility] [place] [facility] [address] [id number] [place] [address] May, [facility] [place] [facility] [address] [id number] [place] [address] May, [facility] [place] [facility] [address] [id number] [place] [address] May, [facility] [place] [facility] [address] [id number] [place] [address] Apr, [facility] [address] [facility] [place] [id number] [place] [address] Apr, [facility] [address] [facility] [place] [id number] [place] [address] Apr, [facility] [address] [facility] [place] [id number] [place] [address] Apr, IMMUNIZATIONS No Known Immunizations SOCIAL HISTORY Never Assessed REASON FOR VISIT Controlled Med Refill 07/22/18 PLAN OF CARE VITAL SIGNS MEDICATIONS Medication Instructions Dosage Frequency Start Date End Date Duration Status Hydrocodone-Acetaminophen 10-325 MG Orally 4 times a day 1 tablet as needed for pain 6h Jun, 28 days Active Ambien 10 MG Orally [...]
--- OUTSIDE RECORDS SUMMARY | 2018-10-30 16:46 | XMS REPORT ---
Author Author JOSÉ LUIS RODRÍGUEZ Organization [facility] Address [address] [place] [address] Care Team Providers Care Apprentice/Lineman Name Role Phone JOSÉ LUIS RODRÍGUEZ Unavailable PROBLEMS Type Condition ICD9-CM Code PVO38-CS Code Onset Dates Condition Status SNOMED Code Problem Hypertriglyceridemia E78.1 Active 139093519 Problem 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 Active 61772021 Problem Family history of diabetes mellitus Z83.3 Active 662167660 Problem History of MRSA infection Z86.14 Active 804282496 Problem Chronic pain G89.29 Active 66192612 Problem Dysthymia F34.1 Active 50264379 Problem Insomnia, unspecified type G47.00 Active 706273648 Problem Chronic obstructive pulmonary disease, unspecified COPD type J44.9 Active 65429213 Problem Osteoarthritis M19.90 Active 234895968 Problem Primary insomnia F51.01 Active 2623261 Problem Essential hypertension I10 Active 93066166 ALLERGIES No Information ENCOUNTERS Encounter Location Date Diagnosis [facility] [id number] [place] [address] 14064- 1739 Jul, [facility] [id number] [place] [address] 49801- 6778 Jun, Chronic pain G89.29 and Insomnia, unspecified type G47.00 [facility] [id number] [place] [address] 64496- 0824 Jun, Seborrheic keratoses L82.[address] 65376- 0377 May, Dysthymia F34.1 ; Chronic obstructive pulmonary disease, unspecified COPD type J44.9 ; Chronic pain G89.29 ; Insomnia, unspecified type G47.00 ; BMI 40.0-44.9, adult Z68.41 and Other seborrheic keratosis L82.1 [facility] [id number] [place] [address] 00843- 7517 May, Chronic pain G89.29 and Insomnia, unspecified type G47.00 [facility] [id number] [place] [address] 65277- 5538 Apr, Hypertriglyceridemia E78.1 [facility] [address] 990280- 0719 Apr, Chronic pain G89.29 and Insomnia, unspecified type G47.00 [facility] [id number] [place] [address] 958603- 9059 15 Apr, 2018 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 ; Hypertriglyceridemia E78.1 and Fatigue, unspecified type R53.83 [facility] [id number] [place] [address] 91092- 1727 Apr, 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 ; Chronic pain G89.29 ; Primary insomnia F51.01 ; Chronic obstructive pulmonary disease, unspecified COPD type J44.9 ; Dysthymia F34.1 ; Hypertriglyceridemia E78.1 ; Fatigue, unspecified type R53.83 and Rash R21 [facility] [id number] [place] [address] 17472- 3667 March, Chronic pain G89.29 and Insomnia, unspecified type G47.00 [facility] [id number] [place] [address] 43021- 9056 March, Insomnia, unspecified type G47.00 [facility] [id number] [place] [address] 01005- 7046 Feb, Chronic pain G89.29 [facility] [id number] [place] [address] 79608- 7231 Feb, Chronic pain G89.29 [facility] [id number] [place] [address] 01220- 8327 Jan, Chronic pain G89.29 [facility] [id number] [address] 6801 Dec, Chronic pain G89.29 [facility] [id number] [place] [address] 46969- 5007 Nov, Chronic pain G89.29 and Insomnia, unspecified type G47.00 [facility] [id number] [place] [address] 93758- 3089 Oct, Insomnia, unspecified type G47.00 ; Chronic pain G89.29 and Colon cancer screening Z12.11 [facility] [id number] [place] [address] 04937- 5728 Oct, Chronic pain G89.29 [facility] [id number] [place] [address] 14246- 1685 Sep, Chronic pain G89.29 and Insomnia, unspecified type G47.00 [facility] [id number] [place] [address] 70478- 2587 Sep, Chronic pain G89.29 [facility] [id number] [place] [address] 05523- 3486 Sep, [facility] [id number] [place] [address] 20674- 6507 Aug, Medicare welcome exam Z00.00 ; Encounter for immunization Z23 ; Colon cancer screening Z12.11 and Encounter for screening for lung cancer Z12.2 [facility] [id number] [place] [address] 51031- 7743 Aug, [facility] [id number] [place] [address] 95713- 5540 Aug, Chronic pain G89.29 and Insomnia, unspecified type G47.00 [facility] [id number] [place] [address] 29358- 4470 Aug, Hypertriglyceridemia E78.1 [facility] [id number] [place] [address] 82955- 7777 Jul, Chronic pain G89.29 and Insomnia, unspecified type G47.00 [facility] [id number] [place] [address] 48443- 2066 Jun, Hypertriglyceridemia E78.1 [facility] [id number] [place] [address] 87429- 0839 Jun, Chronic pain G89.29 and Insomnia, unspecified type G47.00 [facility] [address] 25311- 6762 Jun, [facility] [address] 41666- 3228 Jun, [facility] [address] 00239- 1680 May, 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 ; Chronic pain G89.29 ; Insomnia, unspecified type G47.00 and Rash R21 [facility] [address] 96402- 9302 May, Chronic pain G89.29 [facility] [address] 08989- 8628 May, Hypertriglyceridemia E78.1 [facility] [address] 46100- 3696 Apr, Chronic pain G89.29 [facility] [address] 06263- 8991 Apr, Chronic pain G89.29 ; 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 ; Hypertriglyceridemia E78.1 and Primary insomnia F51.01 [facility] [id number] [place] [address] 06016- 6227 March, Chronic pain G89.29 [facility] [address] 99318- 5145 March, Chronic pain G89.29 [facility] [address] 79411- 8583 Feb, [facility] [address] [place] [address] 37853- 8242 Feb, Chronic pain G89.29 [facility] [id number] [place] [address] 92494- 0057 Jan, Chronic pain G89.29 [facility] [id number] [place] [address] 32524- 9867 Dec, Chronic pain G89.29 [facility] [id number] [place] [address] 20318- 4504 Dec, [facility] [address] 48575- 4199 Nov, Hypertriglyceridemia E78.1 [facility] [id number] [place] [address] 08261- 1304 Nov, [facility] [id number] [place] [address] 04962- 3212 Nov, Chronic pain G89.29 ; Hypertriglyceridemia E78.1 and Chronic obstructive pulmonary disease, unspecified COPD type J44.9 [facility] [id number] [place] [address] 66423- 4669 Nov, Chronic pain G89.29 [facility] [id number] [place] [address] 07012- 0435 Oct, Chronic pain G89.29 [facility] [id number] [place] [address] 32607- 3117 05 Oct, 2016 [facility] [address] [place] [address] 98319- 8892 29 Sep, 2016 Chronic obstructive pulmonary disease, unspecified COPD type J44.9 and Abscess L02.91 [facility] [address] [place] [address] 23490- 4564 16 Sep, 2016 Chronic pain G89.29 [facility] [id number] [place] [address] 34852- 6843 Aug, Chronic pain G89.29 [facility] [id number] [place] [address] 45638- 8284 Aug, Chronic pain G89.29 [facility] [id number] [place] [address] 63246 2546 Aug, Cutaneous horn L85.8 and Skin tag L91.8 [facility] [address] 57667- 8390 Jul, [facility] [id number] [place] [address] 34007- 1154 Jul, Hypertriglyceridemia E78.1 [facility] [id number] [place] [address] 01018- 7634 Jul, Other chronic pain G89.29 ; Essential hypertension I10 ; 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 ; Hyperlipidemia, unspecified hyperlipidemia type E78.5 and Cutaneous horn L85.8 [facility] [id number] [place] [address] 34564- 2644 Jun, Chronic pain G89.29 [facility] [address] 78560- 2150 May, Chronic pain G89.29 [facility] [id number] [place] [address] 69470- 7434 May, [facility] [id number] [place] [address] 05295- 9319 May, Skin infection L08.9 [facility] [id number] [place] [address] 17057- 2499 Apr, Chronic pain G89.29 [facility] [id number] [place] [address] 18642- 0802 Apr, [facility] [id number] [place] [address] 04604- 7882 Apr, Chronic pain G89.29 [facility] [id number] [place] [address] 40844- 8040 March, [facility] [id number] [place] [address] 48099- 7752 Feb, Chronic pain G89.29 ; 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 and Hypertriglyceridemia E78.1 [facility] [id number] [place] [address] 93460- 4905 Feb, [facility] [id number] [place] [address] 82211- 2303 Jan, [facility] [id number] [place] [address] 39746- 5633 Dec, [facility] [id number] [place] [address] 35193- 4752 Nov, [facility] [id number] [place] [address] 98216- 1996 Oct, [facility] [id number] [place] [address] 90109- 3977 Oct, 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 [facility] [id number] [place] [address] 70339- 5026 Oct, Other chronic pain G89.29 ; Chronic obstructive pulmonary disease, unspecified COPD type J44.9 ; Insomnia, unspecified type G47.00 ; 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 and Essential hypertension I10 [facility] [id number] [place] [address] 48192- 9804 Sep, [facility] [id number] [place] [address] 29851- 9590 Aug, [facility] [id number] [place] [address] 23120- 3554 30 Jul, 2015 [facility] [id number] [place] [address] 97590- 7171 14 Jul, 2015 [facility] [id number] [place] [address] 77989- 7460 Jul, Overweight 278.02 and Hyperinsulinemia 251.1 [facility] [address] 63735- 4863 Jul, [facility] [address] 93813- 5121 Jun, Skin tags, multiple acquired 701.9 [facility] [address] 66889- 3862 Jun, Other chronic pain 338.29 ; Erectile dysfunction 607.84 ; Hyperinsulinemia 251.1 and Hypertension 401.9 [facility] [address] 67417- 9695 Jun, [facility] [address] 70001- 0134 Jun, [facility] [address] 70045- 2240 Jun, [facility] [address] 79752- 6919 May, Pure hyperglyceridemia 272.1 [facility] [address] 40643- 9704 May, Pure hyperglyceridemia 272.1 [facility] [address] 95260- 0125 May, [facility] [address] 98144- 4772 May, Overgrown toenails 703.8 ; Seborrheic keratosis 702.19 ; Skin tag 701.9 ; Warts, genital 078.11 ; Cramps, extremity 729.82 ; Increased appetite 783.6 and Heat rash 705.1 [facility] [id number] [place] [address] 06778- 3333 May, [facility] [address] 47493- 9185 Apr, [facility] [place] [facility] [address] [id number] [place] [address]- 9771 08 Apr, 2015 [facility] [place] [facility] [address] [id number] [place] [address]- 7896 March, [facility] [place] [facility] [address] [id number] [place] [address]- 0328 14 Feb, 2015 [facility] [place] [facility] [address] [id number] [place] [address]- 5677 Feb, [facility] [place] [facility] [address] [id number] [place] [address]- 9100 27 Jan, 2015 [facility] [place] [facility] [address] [id number] [place] [address]- 4260 27 Jan, 2015 [facility] [place] [facility] [address] [id number] [place] [address]- 3034 27 Jan, 2015 [facility] [place] [facility] [address] [id number] [place] [address]- 7727 27 Jan, 2015 [facility] [place] [facility] [address] [id number] [place] [address]- 8260 19 Jan, 2015 [facility] [place] [facility] [address] [id number] [place] [address]- 4063 19 Jan, 2015 [facility] [place] [facility] [address] [id number] [place] [address]- 8043 16 Jan, 2015 [facility] [place] [facility] [address] [id number], [place] [address]- 3677 16 Jan, 2015 [facility] [place] [facility] [address] [id number] [place] [address]- 9266 10 Jan, 2015 [facility] [place] [facility] [address] [id number] [place] [address]- 4680 10 Jan, 2015 [facility] [place] [facility] [address] [id number] [place] [address]- 0169 05 Jan, 2015 [facility] [place] [facility] [address] [id number] [place] [address]- 3327 Jan, [facility] [place] [facility] [address] [id number] [place] [address]- 8342 Dec, 2014 [facility] [place] [facility] [address] [id number] [place] [address]- 1176 Dec, 2014 [facility] [place] [facility] [address] [id number] [place] [address]- 0309 Dec, 2014 [facility] [place] [facility] [address] [id number] [place] [address]- 1654 Dec, 2014 [facility] [place] [facility] [address] [id number] [place] [address]- 5083 Dec, 2014 [facility] [place] [facility] [address] [id number] [place] [address]- 3208 Dec, 2014 [facility] [place] [facility] [address] [id number] [place] [address]- 9894 Dec, 2014 [facility] [place] [facility] [address] [id number] [place] [address]- 1501 Dec, [facility] [place] [facility] [address] [id number] [place] [address]- 9264 Nov, [facility] [place] [facility] [address] [id number] [place] [address]- 6145 Nov, [facility] [place] [facility] [address] [id number] [place] [address]- 5713 Nov, [facility] [place] [facility] [address] [id number] [place] [address]- 4584 Nov, [facility] [place] [facility] [address] [id number] [place] [address]- 8950 Nov, [facility] [place] [facility] [address] [id number] [place] [address]- 4588 Nov, [facility] [place] [facility] [address] [id number] [place] [address]- 7028 Nov, [facility] [place] [facility] [address] [id number] [place] 2943 Nov, [facility] [place] [facility] [address] [id number] [place] [address]- 9944 Oct, [facility] [place] [facility] [address] [id number] [place] [address]- 9864 Oct, [facility] [place] [facility] [address] [id number] [place] [address]- 7634 Sep, [facility] [place] [facility] [address] [id number] [place] [address]- 0497 Sep, [facility] [place] [facility] [address] [id number] [place] [address]- 4643 Sep, [facility] [place] [facility] [address] [id number] [place] [address]- 4082 Sep, [facility] [place] [facility] [address] [id number], [place] [address]- 5699 Aug, [facility] [place] [facility] [address] [id number], [place] [address]- 6658 Aug, [facility] [place] [facility] [address] [id number], [place] [address]- 4733 Aug, [facility] [place] [facility] [address] [id number], [place] [address]- 1410 Aug, [facility] [place] [facility] [address] [id number], [place] [address]- 5260 Aug, [facility] [place] [facility] [address] [id number], [place] [address]- 3824 Aug, [facility] [place] [facility] [address] [id number], [place] [address]- 8557 Aug, [facility] [place] [facility] [address] [id number] 6260 Aug, [facility] [place] [facility] [address] [id number] [place] [address]- 7445 Jul, [facility] [place] [facility] [address] [id number] [place] [address]- 9496 Jul, [facility] [place] [facility] [address] [id number] [place] [address]- 3636 Jul, [facility] [place] [facility] [address] [id number] [place] [address]- 3072 Jul, [facility] [place] [facility] [address] [id number] [place] [address]- 3717 Jul, [facility] [place] [facility] [address] [id number] [place] [address]- 8287 Jun, [facility] [place] [facility] [address] [id number] [place] [address]- 0070 Jun, [facility] [place] [facility] [address] [id number] [place] [address]- 9671 Jun, [facility] [place] [facility] [address] [id number] [place] [address]- 9831 Jun, [facility] [place] [facility] [address] [id number] [place] [address]- 1762 Jun, [facility] [place] [facility] [address] [id number] [place] [address]- 1916 Jun, [facility] [place] [facility] [address] [id number] [place] [address]- 5824 May, [facility] [place] [facility] [address] [id number] [place] [address]- 6854 May, [facility] [place] [facility] [address] [id number] [place] [address]- 1744 May, [facility] [place] [facility] [address] [id number] [place] [address]- 8926 May, [facility] [place] [facility] [address] [id number] [place] [address]- 8742 Apr, [facility] [place] [facility] [address] [id number] [place] [address]- 1108 Apr, [facility] [place] [facility] [address] [id number] [place] [address]- 0189 Apr, [facility] [place] [facility] [address] [id number] [place] [address]- 1487 Apr, [facility] [place] [facility] [address] [id number] [place] [address]- 9918 Apr, [facility] [place] [facility] [address] [id number] [place] [address]- 1057 Apr, [facility] [place] [facility] [address] [id number] [place] [address]- 5678 March, [facility] [place] [facility] [address] [id number] [place] [address]- 8014 March, [facility] [place] [facility] [address] [id number] [place] [address]- 2022 March, [facility] [place] [facility] [address] [id number] [place] [address]- 8157 March, [facility] [place] [facility] [address] [id number] [place] [address]- 2018 Feb, [facility] [place] [facility] [address] [id number] [place] [address]- 0452 Feb, [facility] [place] [facility] [address] [id number] [place] [address]- 2557 Feb, [facility] [place] [facility] [address] [id number] [place] [address]- 4909 Feb, [facility] [place] [facility] [address] [id number] [place] [address]- 1632 Feb, [facility] [place] [facility] [address] [id number] [place] [address]- 6896 Feb, [facility] [place] [facility] [address] [id number] [place] [address]- 8310 Feb, [facility] [place] [facility] [address] [id number] [place] [address]- 2827 Feb, [facility] [place] [facility] [address] [id number] [place] [address]- 0541 Feb, [facility] [place] [facility] [address] [id number] [place] [address]- 4131 Feb, [facility] [place] [facility] [address] [id number] [place] [address]- 1849 Feb, [facility] [place] [facility] [address] [id number] [place] [address]- 6372 Feb, [facility] [place] [facility] [address] [id number] [place] [address]- 3507 Feb, [facility] [place] [facility] [address] [id number] [place] [address]- 4728 Feb, [facility] [place] [facility] [address] [id number] [place] [address]- 2296 Feb, [facility] [place] [facility] [address] [id number] [place] [address]- 3193 Feb, [facility] [place] [facility] [address] [id number] [place] [address] Jan, [facility] [place] [facility] [address] [id number] [place] [address] Jan, [facility] [place] [facility] [address] [id number] [place] [address] Dec, [facility] [place] [facility] [address] [id number] [place] [address] Dec, [facility] [place] [facility] [address] [id number] [place] [address] Dec, [facility] [place] [facility] [address] [facility] [id number] [place] [address] Dec, [facility] [place] [facility] [address] [id number] [place] [address] Dec, [facility] [place] [facility] [address] [id number] [place] [address] Dec, [facility] [place] [facility] [address] [id number] [place] [address] Dec, [facility] [place] [facility] [address] [id number] [place] [address] Nov, [facility] [place] [facility] [address] [id number] [place] [address] Nov, [facility] [place] [facility] [address] [id number] [place] [address] Nov, [facility] [place] [facility] [address] [id number] [place] [address] Nov, [facility] [place] [facility] [address] [id number] [place] [address] Oct, [facility] [place] [facility] [address] [id number] [place] [address] Oct, [facility] [place] [facility] [address] [id number] [place] [address] Sep, [facility] [place] [facility] [address] [id number] [place] [address] Sep, [facility] [place] [facility] [address] [id number] [place] [address] Aug, [facility] [place] [facility] [address] [id number] [place] [address] Aug, [facility] [place] [facility] [address] [id number] [place] [address] Aug, [facility] [place] [facility] [address] [id number] [place] [address] Aug, [facility] [place] [facility] [address] [id number] [place] [address]- [address] Aug, [facility] [place] [facility] [address] [id number] [place] [address] Aug, [facility] [place] [facility] [address] [id number] [place] [address] Aug, [facility] [place] [facility] [address] [id number] [place] [address] Aug, [facility] [place] [facility] [address] [id number] [place] [address] Aug, [facility] [place] [facility] [address] [id number] [place] [address] Aug, [facility] [place] [facility] [address] [id number] [place] [address] Jun, [facility] [place] [facility] [address] [id number] [place] [address] Jun, [facility] [place] [facility] [address] [id number] [place] [address] May, [facility] [place] [facility] [address] [id number] [place] [address] Apr, [facility] [place] [facility] [address] [id number] [place] [address] Apr, [facility] [place] [facility] [address] [id number], [place] [address] March, [facility] [place] [facility] [address] [id number], [place] [address] Feb, [facility] [place] [facility] [address] [id number] [place] [address] Jan, [facility] [place] [facility] [address] [id number], [place] [address] Jan, [facility] [place] [facility] [address] [id number] [place] [address] Dec, [facility] [place] [facility] [address] [id number] [place] [address] Dec, [facility] [address] [id number] [place] [address] Nov, [facility] [facility] [address] [id number] [place] [address] Jul, [facility] [address] [id number] [place] [address] Jul, [facility] [address] [id number] [place] [address] Jun, [facility] [address] [id number] [place] [address] May, [facility] [address] [id number] [place] [address] May, [facility] [address] [id number] [place] [address] May, [facility] [address] [id number] [place] [address] May, [facility] [address] [id number] [place] [address] May, [facility] [address] [id number] [place] [address] May, [facility] [address] [id number] [place] [address] May, [facility] [address] [id number] [place] [address] Apr, [facility] [place] [facility] [address] [id number] [place] [address] Apr, [facility] [address] [id number] [place] [address] Apr, [facility] [address] [id number] [place] [address] Apr, IMMUNIZATIONS No Known Immunizations SOCIAL HISTORY Never Assessed REASON FOR VISIT Controlled Med Refill 06/24/18 PLAN OF CARE VITAL SIGNS MEDICATIONS Medication Instructions Dosage Frequency Start Date End Date Duration Status Ambien 10 MG Orally Once a day 1 tablet at bedtime 24h May, 28 days Active Hydrocodone-Acetaminophen 10-325 MG Orally 4 times a day 1 tablet as needed for pain 6h May, 28 days Active RESULTS No Results PROCEDURES No Known procedures INSTRUCTIONS MEDICATIONS ADMINISTERED No Known Medications MEDICAL (GENERAL) HISTORY Type Description Date Medical History hypogonadism Medical History hyperlipidemia Medical History pre-diabetic Medical History chronic pain Medical History COPD Surgical History skin cancer 1999 Hospitalization History surgery Hospitalization History MRSA infection 05/2015
--- OUTSIDE RECORDS SUMMARY | 2018-10-30 16:46 | XMS REPORT ---
Author Author JOSÉ LUIS RODRÍGUEZ Organization [facility] Address [address] [place] [address] Care Team Providers Care Property Consultant Name Role Phone JOSÉ LUIS RODRÍGUEZ Unavailable PROBLEMS Type Condition ICD9-CM Code TZI34-EO Code Onset Dates Condition Status SNOMED Code Problem Hypertriglyceridemia E78.1 Active 350167110 Problem 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 Active 99740996 Problem Family history of diabetes mellitus Z83.3 Active 013305482 Problem History of MRSA infection Z86.14 Active 359089439 Problem Chronic pain G89.29 Active 31473906 Problem Dysthymia F34.1 Active 67329554 Problem Insomnia, unspecified type G47.00 Active 778121067 Problem Chronic obstructive pulmonary disease, unspecified COPD type J44.9 Active 41417821 Problem Osteoarthritis M19.90 Active 745959391 Problem Primary insomnia F51.01 Active 7716794 Problem Essential hypertension I10 Active 36724547 ALLERGIES No Known Allergies ENCOUNTERS Encounter Location Date Diagnosis [place] [id number] [place] [address] 28956- 1055 Jul, [place] [address] [place] [id number] [place] [address] 56159- 6094 Jul, Chronic pain G89.29 and Insomnia, unspecified type G47.00 [place] [address] [place] [id number] [place] [address] 36400- 2797 Jun, Chronic pain G89.29 and Insomnia, unspecified type G47.00 [place] [address] [place] [id number] [place] [address] 63715- 4306 Jun, Seborrheic keratoses L82.1 [place] [address] [place] [id number] [place] [address] 52357- 1320 May, Dysthymia F34.1 ; Chronic obstructive pulmonary disease, unspecified COPD type J44.9 ; Chronic pain G89.29 ; Insomnia, unspecified type G47.00 ; BMI 40.0-44.9, adult Z68.41 and Other seborrheic keratosis L82.1 [place] [address] [place] [id number] [place] [address] 08272- 9065 May, Chronic pain G89.29 and Insomnia, unspecified type G47.00 [place] [address] 05273- 8049 Apr, Hypertriglyceridemia E78.1 [place] [address] 928540- 8206 Apr, Chronic pain G89.29 and Insomnia, unspecified type G47.00 [place] [address] 68448- 4991 Apr, 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 ; Hypertriglyceridemia E78.1 and Fatigue, unspecified type R53.83 [place] [address] 36274- 2556 Apr, 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 ; Chronic pain G89.29 ; Primary insomnia F51.01 ; Chronic obstructive pulmonary disease, unspecified COPD type J44.9 ; Dysthymia F34.1 ; Hypertriglyceridemia E78.1 ; Fatigue, unspecified type R53.83 and Rash R21 [place] [address] [place] [id number] [place] [address] 48539- 5200 March, Chronic pain G89.29 and Insomnia, unspecified type G47.00 [place] [address] [place] [id number] [place] [address] 24607- 5103 March, Insomnia, unspecified type G47.00 [place] [address] [place] [id number] [place] [address] 09167- 5974 Feb, Chronic pain G89.29 [place] [address] [place] [id number] [place] [address] 92134- 0722 Feb, Chronic pain G89.29 [facility] [address] [address] 3553 Jan, Chronic pain G89.29 [facility] [address] [place] [id number] [place] [address] 80108- 5376 Dec, Chronic pain G89.29 [facility] [address] [place] [id number] [place] [address] 57149- 2603 Nov, Chronic pain G89.29 and Insomnia, unspecified type G47.00 [facility] [address] [place] [id number] [place] [address] 39405- 5198 Oct, Insomnia, unspecified type G47.00 ; Chronic pain G89.29 and Colon cancer screening Z12.11 [facility] [address] [place] [id number] [place] [address] 64008- 4303 Oct, Chronic pain G89.29 [facility] [address] [place] [id number] [place] [address] 84201- 9041 Sep, Chronic pain G89.29 and Insomnia, unspecified type G47.00 [place] [address] [place] [id number] [place] [address] 48300- 1452 15 Sep, 2017 Chronic pain G89.29 [facility] [address] [place] [id number] [place] [address] 47484- 1601 Sep, [facility] [address] [place] [id number] [place] [address] 15566- 6157 Aug, Medicare welcome exam Z00.00 ; Encounter for immunization Z23 ; Colon cancer screening Z12.11 and Encounter for screening for lung cancer Z12.2 [facility] [address] [place] [id number] [place] [address] 09290- 2648 Aug, [facility] [address] [place] [id number] [place] [address] 50876- 3342 18 Aug, 2017 Chronic pain G89.29 and Insomnia, unspecified type G47.00 [facility] [address] [place] [id number] [place] [address] 49206- 6618 Aug, Hypertriglyceridemia E78.1 [facility] [address] 84828- 5821 Jul, Chronic pain G89.29 and Insomnia, unspecified type G47.00 [facility] [address] [place] [id number] [place] [address] 40303- 0191 Jun, Hypertriglyceridemia E78.1 [facility] [address] 27190- 6429 Jun, Chronic pain G89.29 and Insomnia, unspecified type G47.00 [facility] [address] 56658- 3181 Jun, [facility] [address] 57760- 5319 Jun, [facility] [address] 97648- 0424 May, 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 ; Chronic pain G89.29 ; Insomnia, unspecified type G47.00 and Rash R21 [place] [address] 32212- 2259 May, Chronic pain G89.29 [facility] [address] [place] [id number] [place] [address] 68240- 1354 May, Hypertriglyceridemia E78.1 [facility] [address] [place] [id number] [place] [address] 34243- 7307 Apr, Chronic pain G89.29 [facility] [address] [place] [id number] [place] [address] 33047- 0367 Apr, Chronic pain G89.29 ; 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 ; Hypertriglyceridemia E78.1 and Primary insomnia F51.01 [facility] [address] [place] [id number] [place] [address] 04012- 3496 March, Chronic pain G89.29 [facility] [address] [place] [address] [address]- 8605 March, Chronic pain G89.29 [facility] [address] [place] [id number] [place] [address] 64043- 3722 Feb, [facility] [address] [place] [id number] [place] [address] 35127- 9320 Feb, Chronic pain G89.29 [facility] [address] [place] [id number] [place] [address] 50598- 7081 Jan, Chronic pain G89.29 [facility] [address] [place] [id number] [place] [address] 08949- 9921 Dec, Chronic pain G89.29 [facility] [address] [place] [id number] [place] [address] 98481- 4859 Dec, [facility] [address] [place] [id number] [place] [address] 18935- 2477 Nov, Hypertriglyceridemia E78.1 [facility] [address] [place] [id number] [place] [address] 56939- 0588 Nov, [facility] [address] [place] [id number] [place] [address] 06484- 4988 Nov, Chronic pain G89.29 ; Hypertriglyceridemia E78.1 and Chronic obstructive pulmonary disease, unspecified COPD type J44.9 [facility] [id number] [place] [address] 29087- 3529 Nov, Chronic pain G89.29 [facility] [id number] [place] [address] 98483- 7042 Oct, Chronic pain G89.29 [facility] [address] [place] [id number] [place] [address] 41811- 2929 Oct, [facility] [id number] [place] [address] 57573- 8630 Sep, Chronic obstructive pulmonary disease, unspecified COPD type J44.9 and Abscess L02.91 [facility] [address] [place] [id number] [place] [address] 63906- 9029 Sep, Chronic pain G89.29 [facility] [address] 71411- 4008 Aug, Chronic pain G89.29 [facility] [address] [place] [id number] [place] [address] 77373- 0908 Aug, Chronic pain G89.29 [facility] [address] 77802- 2368 Aug, Cutaneous horn L85.8 and Skin tag L91.8 [place] [address] 86820- 6555 Jul, [place] [address] [place] [id number] [place] [address] 12625- 6118 09 Jul, 2016 Hypertriglyceridemia E78.1 [place] [address] 53721- 9078 07 Jul, 2016 Other chronic pain G89.29 ; Essential hypertension I10 ; 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 ; Hyperlipidemia, unspecified hyperlipidemia type E78.5 and Cutaneous horn L85.8 [facility] [address] [place] [id number] [place] [address] 32618- 0266 Jun, Chronic pain G89.29 [facility] [address] [place] [id number] [place] [address] 01542- 1018 May, Chronic pain G89.29 [facility] [address] [place] [id number] [place] [address] 47177- 8834 15 May, 2016 [facility] [address] [place] [id number] [place] [address] 63094- 8481 05 May, 2016 Skin infection L08.9 [facility] [address] [place] [id number] [place] [address] 72563- 8355 29 Apr, 2016 Chronic pain G89.29 [facility] [address] [place] [id number] [place] [address] 59517- 4344 Apr, [facility] [id number] [place] [address] 13417- 8749 Apr, Chronic pain G89.29 [facility] [address] [place] [id number] [place] [address] 712039- 2934 March, [facility] [address] [place] [id number] [place] [address] 41326- 6007 Feb, Chronic pain G89.29 ; 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 and Hypertriglyceridemia E78.1 [facility] [address] [place] [id number] [place] [address] 78207- 2092 Feb, [facility] [address] 43888- 0277 Jan, [facility] [address] [place] [id number] [place] [address] 77072- 8988 Dec, [facility] [address] [place] [id number] [place] [address] 02559- 6561 Nov, [facility] [address] [place] [id number] [place] [address] 04283- 6305 Oct, [facility] [address] [place] [id number] [place] [address] 79319- 1043 Oct, 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 [facility] [address] [place] [id number] [place] [address] 23954- 1476 Oct, Other chronic pain G89.29 ; Chronic obstructive pulmonary disease, unspecified COPD type J44.9 ; Insomnia, unspecified type G47.00 ; 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 and Essential hypertension I10 [facility] [address] [place] [id number] [place] [address] 68558- 0839 Sep, [facility] [address] [place] [id number] [place] [address] 64258- 1369 Aug, [facility] [address] [place] [id number] [place] [address] 86182- 1603 30 Jul, 2015 [facility] [address] [place] [id number] [place] [address] 16001- 9596 14 Jul, 2015 [facility] [address] 94718- 7946 Jul, Overweight 278.02 and Hyperinsulinemia 251.1 [facility] [address] [place] [id number] [place] [address] 14953- 0063 Jul, [facility] [address] 58565- 2959 Jun, Skin tags, multiple acquired 701.9 [place] [address] [place] [id number] [place] [address] 35470- 9023 Jun, Other chronic pain 338.29 ; Erectile dysfunction 607.84 ; Hyperinsulinemia 251.1 and Hypertension 401.9 [place] [address] [place] [id number] [place] [address] 53289- 0545 Jun, [facility] [address] 16998- 3932 Jun, [facility] [address] [place] [id number] [place] [address] 85287- 2017 Jun, [place] [address] [place] [id number] [place] [address] 06096- 7799 May, Pure hyperglyceridemia 272.1 [place] [address] [place] [id number] [place] [address] 51773- 1203 May, Pure hyperglyceridemia 272.1 [facility] [address] [place] [id number] [place] [address] 06220- 4818 May, [place] [address] [place] [id number] [place] [address] 65003- 1951 May, Overgrown toenails 703.8 ; Seborrheic keratosis 702.19 ; Skin tag 701.9 ; Warts, genital 078.11 ; Cramps, extremity 729.82 ; Increased appetite 783.6 and Heat rash 705.1 [place] [address] [place] [id number] [place] [address]- 6150 09 May, 2015 [facility] [place] [facility] [address] [id number] [place] [address]- 8251 Apr, [facility] [place] [facility] [address] [id number] [place] [address]- 4756 08 Apr, 2015 [facility] [place] [facility] [address] [id number] [place] [address]- 6581 March, [facility] [place] [facility] [address] [id number] [place] [address]- 0877 14 Feb, 2015 [facility] [place] [facility] [address] [id number] [place] [address]- 4907 Feb, [facility] [place] [facility] [address] [id number] [place] [address]- 6584 27 Jan, 2015 [facility] [place] [facility] [address] [id number] [place] [address]- 9128 27 Jan, 2015 [facility] [place] [facility] [address] [id number] [place] [address]- 6556 27 Jan, 2015 [facility] [place] [facility] [address] [id number] [place] [address]- 5677 27 Jan, 2015 [facility] [place] [facility] [address] [id number] [place] [address]- 4477 19 Jan, 2015 [facility] [place] [facility] [address] [id number] [place] [address]- 4506 19 Jan, 2015 [facility] [place] [facility] [address] [id number] [place] [address]- 3644 16 Jan, 2015 [facility] [place] [facility] [address] [id number] [place] [address]- 2487 16 Jan, 2015 [facility] [place] [facility] [address] [id number] [place] [address]- 9196 10 Jan, 2015 [facility] [place] [facility] [address] [id number] [place] [address]- 4245 Jan, [facility] [place] [facility] [address] [id number] [place] [address]- 8172 Jan, [facility] [place] [facility] [address] [id number] [place] [address]- 2660 Jan, [facility] [place] [facility] [address] [id number] [place] [address]- 1360 Dec, 2014 [facility] [place] [facility] [address] [id number] [place] [address]- 2161 Dec, 2014 [facility] [place] [facility] [address] [id number] [place] [address]- 3919 Dec, 2014 [facility] [place] [facility] [address] [id number] [place] [address]- 6170 Dec, 2014 [facility] [place] [facility] [address] [id number] [place] [address]- 8781 Dec, 2014 [facility] [place] [facility] [address] [id number] [place] [address]- 0314 Dec, 2014 [facility] [place] [facility] [address] [id number] [place] [address]- 7216 Dec, [facility] [place] [facility] [address] [id number] [place] [address]- 1379 Dec, [facility] [place] [facility] [address] [id number] [place] [address]- 4506 Nov, [facility] [place] [facility] [address] [id number] [place] [address]- 1948 Nov, [facility] [place] [facility] [address] [id number] [place] [address]- 9154 Nov, [facility] [place] [facility] [address] [id number] [place] [address]- 5772 Nov, [facility] [place] [facility] [address] [id number] [place] [address]- 6078 Nov, [facility] [place] [facility] [address] [id number] [place] [address]- 5609 Nov, [facility] [place] [facility] [address] [id number] [place] [address]- 8779 Nov, [facility] [place] [facility] [address] [id number] [place] [address]- 0388 Nov, [facility] [place] [facility] [address] [id number] [place] [address]- 3848 Oct, [facility] [place] [facility] [address] [id number] [place] [address]- 7544 Oct, [facility] [place] [facility] [address] [id number] [place] [address]- 9134 Sep, [facility] [place] [facility] [address] [id number] [place] [address]- 7254 Sep, [facility] [place] [facility] [address] [id number] [place] [address]- 5760 Sep, [facility] [place] [facility] [address] [id number] [place] [address]- 4220 Sep, [facility] [place] [facility] [address] [id number] [place] [address]- 8125 Aug, [facility] [place] [facility] [address] [id number] [place] [address]- 3881 Aug, [facility] [place] [facility] [address] [id number] [place] [address]- 0840 Aug, [facility] [place] [facility] [address] [id number] [place] [address]- 3866 Aug, [facility] [place] [facility] [address] [id number] [place] [address]- 5190 Aug, [facility] [place] [facility] [address] [id number] [place] [address]- 8998 Aug, [facility] [place] [facility] [address] [id number] [place] [address]- 5896 Aug, [facility] [place] [facility] [address] [id number] [place] [address]- 8333 Aug, [facility] [place] [facility] [address] [id number] [place] [address]- 9788 Jul, [facility] [place] [facility] [address] [id number] [place] [address]- 2854 Jul, [facility] [place] [facility] [address] [id number] [place] [address]- 5242 Jul, [facility] [place] [facility] [address] [id number] [place] [address]- 0943 Jul, [facility] [place] [facility] [address] [id number] [place] [address]- 9149 Jul, [facility] [place] [facility] [address] [id number] [place] [address]- 6616 Jun, [facility] [place] [facility] [address] [id number] [place] [address]- 5988 Jun, [facility] [place] [facility] [address] [id number] [place] [address]- 3374 Jun, [facility] [place] [facility] [address] [id number] [place] [address]- 2154 Jun, [facility] [place] [facility] [address] [id number] [place] [address]- 8159 Jun, [facility] [place] [facility] [address] [id number] [place] [address]- 3819 Jun, [facility] [place] [facility] [address] [id number] [place] [address]- 5450 May, [facility] [place] [facility] [address] [id number] [place] [address]- 4844 May, [facility] [place] [facility] [address] [id number] [place] [address]- 3677 May, [facility] [place] [facility] [address] [id number] [place] [address]- 5861 May, [facility] [place] [facility] [address] [id number] [place] [address]- 6204 Apr, [facility] [place] [facility] [address] [id number] [place] [address]- 6715 Apr, [facility] [place] [facility] [address] [id number] [place] [address]- 8745 Apr, [facility] [place] [facility] [address] [id number] [place] [address]- 8930 Apr, [facility] [place] [facility] [address] [id number] [place] [address]- 3604 Apr, [facility] [place] [facility] [address] [id number] [place] [address]- 8825 Apr, [facility] [place] [facility] [address] [id number] [place] [address]- 7053 March, [facility] [place] [facility] [address] [id number] [place] [address]- 2660 March, [facility] [place] [facility] [address] [id number] [place] [address]- 4199 March, [facility] [place] [facility] [address] [id number] [place] [address]- 6368 March, [facility] [place] [facility] [address] [id number] [place] [address]- 6264 Feb, [facility] [place] [facility] [address] [id number] [place] [address]- 8726 Feb, [facility] [place] [facility] [address] [id number] [place] [address]- 2167 Feb, [facility] [place] [facility] [address] [id number] [place] [address]- 7262 Feb, [facility] [place] [facility] [address] [id number] [place] [address]- 5260 Feb, [facility] [place] [facility] [address] [id number] [place] [address] Feb, [facility] [place] [facility] [address] [id number] [place] [address] Feb, [facility] [place] [facility] [address] [id number] [place] [address] Feb, [facility] [place] [facility] [address] [id number] [place] [address] Feb, [facility] [place] [facility] [address] [id number] [place] [address] Feb, [facility] [place] [facility] [address] [id number] [place] [address] Feb, [facility] [place] [facility] [address] [id number] [place] [address] Feb, [facility] [place] [facility] [address] [id number] [place] [address] Feb, [facility] [place] [facility] [address] [id number] [place] [address] Feb, [facility] [place] [facility] [address] [id number] [place] [address] Feb, [facility] [place] [facility] [address] [id number] [place] [address] Feb, [facility] [place] [facility] [address] [id number] [place] [address] Jan, [facility] [place] [facility] [address] [id number] [place] [address] Jan, [facility] [place] [facility] [address] [id number] [place] [address] Dec, [facility] [place] [facility] [address] [id number] [place] [address] Dec, [facility] [place] [facility] [address] [id number], [place] [address] Dec, [facility] [address] [id number] [place] [address] Dec, [facility] [place] [facility] [address] [id number], [place] [address] Dec, [facility] [address] [facility] [id number] [place] [address] Dec, [facility] [place] [facility] [address] [id number] [place] [address] Dec, [facility] [address] [facility] [id number] [place] [address] Nov, [facility] [place] [facility] [address] [facility] [id number] [place] [address]- [address] Nov, [facility] [address] [facility] [id number], [place] [address] Nov, [facility] [place] [facility] [address] [facility] [id number], [place] [address] Nov, [facility] [address] [facility] [id number], [place] [address] Oct, [facility] [place] [facility] [address] [facility] [id number], [place] [address] Oct, [facility] [place] [facility] [address] [facility] [id number], [place] [address] Sep, [facility] [place] [facility] [address] [id number], [place] [address] Sep, [facility] [place] [facility] [address] [id number], [place] [address] Aug, [facility] [place] [facility] [address] [facility] [id number], [place] [address] Aug, [facility] [place] [facility] [address] [facility] [id number], [place] [address] Aug, [facility] [place] [facility] [address] [id number] [place] [address] Aug, [facility] [place] [facility] [address] [id number] [place] [address] 69[address] Aug, [facility] [place] [facility] [address] [id number] [place] [address] Aug, [facility] [place] [facility] [address] [id number] [place] [address] Aug, [facility] [place] [facility] [address] [id number] [place] [address] Aug, [facility] [place] [facility] [address] [id number] [place] [address] Aug, [facility] [place] [facility] [address] [id number] [place] [address] Aug, [facility] [place] [facility] [address] [id number] [place] [address] Jun, [facility] [place] [facility] [address] [id number] [place] [address] Jun, [facility] [place] [facility] [address] [id number] [place] [address] May, [facility] [place] [facility] [address] [id number] [place] [address] Apr, [facility] [place] [facility] [address] [id number] [place] [address]89 Apr, [facility] [place] [facility] [address] [id number] [place] [address] March, [facility] [place] [facility] [address] [id number] [place] [address]- [address] Feb, [facility] [place] [facility] [address] [id number] [place] [address]- [address] Jan, [facility] [place] [facility] [address] [id number] [place] [address]- [address] Jan, [facility] [place] [facility] [address] [id number] [place] [address]- [address] Dec, [facility] [place] [facility] [address] [id number] [place] [address]- [address] Dec, [facility] [place] [facility] [address] [id number] [place] [address] Nov, [facility] [place] [facility] [address] [id number] [place] [address] Jul, [facility] [place] [facility] [address] [id number] [place] [address] Jul, [facility] [place] [facility] [address] [id number] [place] [address] Jun, [facility] [place] [facility] [address] [id number] [place] [address] May, [facility] [place] [facility] [address] [id number] [place] [address] May, [facility] [place] [facility] [address] [id number] [place] [address] May, [facility] [place] [facility] [address] [id number] [place] [address] May, [facility] [place] [facility] [address] [id number] [place] [address] May, [facility] [place] [facility] [address] [id number] [place] [address] May, [facility] [place] [facility] [address] [id number] [place] [address] May, [facility] [place] [facility] [address] [id number] [place] [address] Apr, [facility] [place] [facility] [address] [id number] [place] [address] Apr, [facility] [place] [facility] [address] [facility] [id number] [place] [address] Apr, [facility] [address] [facility] [id number] [place] [address] Apr, IMMUNIZATIONS No Known Immunizations SOCIAL HISTORY Never Assessed REASON FOR VISIT Jason- Andrzej Reddy RN PLAN OF CARE Activity Details Follow Up 3 Months Reason:hyperlipidemia and fasting labs VITAL SIGNS Height 66 in 2018-06-23 Weight 254 lbs 2018-06-23 Temperature 98.3 degrees Fahrenheit 2018-06-23 Heart Rate 94 bpm 2018-06-23 Respiratory Rate 24 2018-06-23 Oximetry on room air:93 % 2018-06-23 BMI 40.99 kg/m2 2018-06-23 Blood pressure systolic 140 mmHg 2018-06-23 Blood pressure diastolic 80 mmHg 2018-06-23 MEDICATIONS Medication Instructions Dosage Frequency Start Date End Date Duration Status Ventolin HFA 108 (90 Base) MCG/ACT Inhalation every 6 hrs 2 puffs as needed 6h 13 Apr, 2018 Active Lovastatin 40 mg Orally Once a day 1 tablet with the evening meal 24h Apr, 30 day(s) Active Hydrocodone-Acetaminophen 10-325 MG Orally 4 times a day 1 tablet as needed for pain 6h May, 28 days Active Oxygen N/A 1 1/2 l at hs Once a day as directed 24h 17 Oct, 2015 Active MetFORMIN HCl ER 500 mg Orally 2 times a day 2 tablet 12h Apr, Active Ambien 10 MG Orally Once a day 1 tablet at bedtime 24h May, 28 days Active Symbicort 160-4.5 MCG/ACT INHALE TWO PUFFS BY MOUTH TWICE DAILY IN THE MORNING AND EVENING Active Viagra 100 MG Orally Once a day prn 1 tablet as needed 10 Active RESULTS No Results PROCEDURES No Known procedures INSTRUCTIONS MEDICATIONS ADMINISTERED No Known Medications MEDICAL (GENERAL) HISTORY Type Description Date Medical History hypogonadism Medical History hyperlipidemia Medical History pre-diabetic Medical History chronic pain Medical History COPD Surgical History skin cancer 1999 Hospitalization History surgery Hospitalization History MRSA infection 05/2015
--- OUTSIDE RECORDS SUMMARY | 2018-10-30 16:47 | XMS REPORT ---
Author Author JOSÉ LUIS RODRÍGUEZ Organization [facility] Address [address] [place] [address] Care Team Providers Care Customer Experience Leader Name Role Phone JOSÉ LUIS RODRÍGUEZ Unavailable PROBLEMS Type Condition ICD9-CM Code WDR07-XR Code Onset Dates Condition Status SNOMED Code Problem Hypertriglyceridemia E78.1 Active 427959098 Problem 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 Active 06114926 Problem Family history of diabetes mellitus Z83.3 Active 145799852 Problem History of MRSA infection Z86.14 Active 427122999 Problem Chronic pain G89.29 Active 31294538 Problem Dysthymia F34.1 Active 20513697 Problem Insomnia, unspecified type G47.00 Active 190498448 Problem Chronic obstructive pulmonary disease, unspecified COPD type J44.9 Active 76244497 Problem Osteoarthritis M19.90 Active 271938445 Problem Primary insomnia F51.01 Active 0561044 Problem Essential hypertension I10 Active 43793364 ALLERGIES No Information ENCOUNTERS Encounter Location Date Diagnosis [facility] [id number] [place] [address] 43884- 4880 Jul, [facility] [id number] [place] [address] 08892- 2059 Jun, Chronic pain G89.29 and Insomnia, unspecified type G47.00 [facility] [id number] [place] [address] 22790- 5582 Jun, Seborrheic keratoses L82.[address] 62499- 4927 May, Dysthymia F34.1 ; Chronic obstructive pulmonary disease, unspecified COPD type J44.9 ; Chronic pain G89.29 ; Insomnia, unspecified type G47.00 ; BMI 40.0-44.9, adult Z68.41 and Other seborrheic keratosis L82.1 [facility] [id number] [place] [address] 50649- 9533 May, Chronic pain G89.29 and Insomnia, unspecified type G47.00 [facility] [id number] [place] [address] 20305- 7511 Apr, Hypertriglyceridemia E78.1 [facility] [address] 311436- 0981 Apr, Chronic pain G89.29 and Insomnia, unspecified type G47.00 [facility] [id number] [place] [address] 341062- 5776 15 Apr, 2018 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 ; Hypertriglyceridemia E78.1 and Fatigue, unspecified type R53.83 [facility] [id number] [place] [address] 71958- 6026 Apr, 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 ; Chronic pain G89.29 ; Primary insomnia F51.01 ; Chronic obstructive pulmonary disease, unspecified COPD type J44.9 ; Dysthymia F34.1 ; Hypertriglyceridemia E78.1 ; Fatigue, unspecified type R53.83 and Rash R21 [facility] [id number] [place] [address] 71897- 6370 March, Chronic pain G89.29 and Insomnia, unspecified type G47.00 [facility] [id number] [place] [address] 62464- 4476 March, Insomnia, unspecified type G47.00 [facility] [id number] [place] [address] 95877- 1199 Feb, Chronic pain G89.29 [facility] [id number] [place] [address] 03573- 9655 Feb, Chronic pain G89.29 [facility] [id number] [place] [address] 64460- 2529 Jan, Chronic pain G89.29 [facility] [id number] [address] 3382 Dec, Chronic pain G89.29 [facility] [id number] [place] [address] 12658- 4782 Nov, Chronic pain G89.29 and Insomnia, unspecified type G47.00 [facility] [id number] [place] [address] 18780- 6431 Oct, Insomnia, unspecified type G47.00 ; Chronic pain G89.29 and Colon cancer screening Z12.11 [facility] [id number] [place] [address] 16495- 8521 Oct, Chronic pain G89.29 [facility] [id number] [place] [address] 45153- 8436 Sep, Chronic pain G89.29 and Insomnia, unspecified type G47.00 [facility] [id number] [place] [address] 22125- 0672 Sep, Chronic pain G89.29 [facility] [id number] [place] [address] 94612- 3312 Sep, [facility] [id number] [place] [address] 65830- 5513 Aug, Medicare welcome exam Z00.00 ; Encounter for immunization Z23 ; Colon cancer screening Z12.11 and Encounter for screening for lung cancer Z12.2 [facility] [id number] [place] [address] 27240- 3257 Aug, [facility] [id number] [place] [address] 94767- 9949 Aug, Chronic pain G89.29 and Insomnia, unspecified type G47.00 [facility] [id number] [place] [address] 15735- 8651 Aug, Hypertriglyceridemia E78.1 [facility] [id number] [place] [address] 32040- 1326 Jul, Chronic pain G89.29 and Insomnia, unspecified type G47.00 [facility] [id number] [place] [address] 07911- 4129 Jun, Hypertriglyceridemia E78.1 [facility] [id number] [place] [address] 98281- 1236 Jun, Chronic pain G89.29 and Insomnia, unspecified type G47.00 [facility] [address] 71025- 9376 Jun, [facility] [address] 59962- 1343 Jun, [facility] [address] 04920- 0602 May, 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 ; Chronic pain G89.29 ; Insomnia, unspecified type G47.00 and Rash R21 [facility] [address] 59501- 7599 May, Chronic pain G89.29 [facility] [address] 46382- 0339 May, Hypertriglyceridemia E78.1 [facility] [address] 17407- 2800 Apr, Chronic pain G89.29 [facility] [address] 55541- 0231 Apr, Chronic pain G89.29 ; 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 ; Hypertriglyceridemia E78.1 and Primary insomnia F51.01 [facility] [id number] [place] [address] 81730- 9224 March, Chronic pain G89.29 [facility] [address] 44812- 5050 March, Chronic pain G89.29 [facility] [address] 16960- 2585 Feb, [facility] [id number] [place] [address] 17424- 4472 Feb, Chronic pain G89.29 [facility] [id number] [place] [address] 30956- 9744 Jan, Chronic pain G89.29 [facility] [id number] [place] [address] 96208- 0728 Dec, Chronic pain G89.29 [facility] [id number] [place] [address] 73375- 5556 Dec, [facility] [address] 06336- 7501 Nov, Hypertriglyceridemia E78.1 [facility] [id number] [place] [address] 14107- 4578 Nov, [facility] [id number] [place] [address] 51455- 5445 Nov, Chronic pain G89.29 ; Hypertriglyceridemia E78.1 and Chronic obstructive pulmonary disease, unspecified COPD type J44.9 [facility] [id number] [place] [address] 42343- 4425 Nov, Chronic pain G89.29 [facility] [id number] [place] [address] 38258- 8465 Oct, Chronic pain G89.29 [facility] [id number] [place] [address] 40789- 1357 05 Oct, 2016 [facility] [id number] [place] [address] 53437- 4872 29 Sep, 2016 Chronic obstructive pulmonary disease, unspecified COPD type J44.9 and Abscess L02.91 [facility] [id number] [place] [address] 04098- 6390 16 Sep, 2016 Chronic pain G89.29 [facility] [id number] [place] [address] 28664- 3035 Aug, Chronic pain G89.29 [facility] [id number] [place] [address] 17849- 4750 Aug, Chronic pain G89.29 [facility] [id number] [place] [address] 90303 2546 Aug, Cutaneous horn L85.8 and Skin tag L91.8 [facility] [address] 87073- 0446 Jul, [facility] [id number] [place] [address] 55917- 0737 Jul, Hypertriglyceridemia E78.1 [facility] [id number] [place] [address] 82080- 3086 Jul, Other chronic pain G89.29 ; Essential hypertension I10 ; 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 ; Hyperlipidemia, unspecified hyperlipidemia type E78.5 and Cutaneous horn L85.8 [facility] [id number] [place] [address] 91533- 8895 Jun, Chronic pain G89.29 [facility] [address] 57184- 1743 May, Chronic pain G89.29 [facility] [id number] [place] [address] 94243- 8244 May, [facility] [id number] [place] [address] 22586- 4735 May, Skin infection L08.9 [facility] [id number] [place] [address] 06104- 4251 Apr, Chronic pain G89.29 [facility] [id number] [place] [address] 14590- 2970 Apr, [facility] [id number] [place] [address] 80353- 3351 Apr, Chronic pain G89.29 [facility] [id number] [place] [address] 56843- 0335 March, [facility] [id number] [place] [address] 90823- 2261 Feb, Chronic pain G89.29 ; 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 and Hypertriglyceridemia E78.1 [facility] [id number] [place] [address] 02106- 0718 Feb, [facility] [id number] [place] [address] 35110- 1260 Jan, [facility] [id number] [place] [address] 46305- 5080 Dec, [facility] [id number] [place] [address] 69875- 8871 Nov, [facility] [id number] [place] [address] 66819- 2428 Oct, [facility] [id number] [place] [address] 85069- 0326 Oct, 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 [facility] [id number] [place] [address] 27433- 4516 Oct, Other chronic pain G89.29 ; Chronic obstructive pulmonary disease, unspecified COPD type J44.9 ; Insomnia, unspecified type G47.00 ; 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 and Essential hypertension I10 [facility] [id number] [place] [address] 27975- 4831 Sep, [facility] [id number] [place] [address] 16194- 2876 Aug, [facility] [id number] [place] [address] 05755- 7796 30 Jul, 2015 [facility] [id number] [place] [address] 87840- 8040 14 Jul, 2015 [facility] [id number] [place] [address] 65020- 7444 Jul, Overweight 278.02 and Hyperinsulinemia 251.1 [facility] [address] 65638- 8897 Jul, [facility] [address] 23216- 2386 Jun, Skin tags, multiple acquired 701.9 [facility] [address] 30440- 9786 Jun, Other chronic pain 338.29 ; Erectile dysfunction 607.84 ; Hyperinsulinemia 251.1 and Hypertension 401.9 [facility] [address] 52090- 8220 Jun, [facility] [address] 07089- 1392 Jun, [facility] [address] 05530- 2416 Jun, [facility] [address] 39070- 6138 May, Pure hyperglyceridemia 272.1 [facility] [address] 65683- 8732 May, Pure hyperglyceridemia 272.1 [facility] [address] 80757- 6519 May, [facility] [address] 49679- 5077 May, Overgrown toenails 703.8 ; Seborrheic keratosis 702.19 ; Skin tag 701.9 ; Warts, genital 078.11 ; Cramps, extremity 729.82 ; Increased appetite 783.6 and Heat rash 705.1 [facility] [id number] [place] [address] 37225- 4902 May, [facility] [address] 18610- 4845 Apr, [facility] [place] [facility] [address] [id number] [place] [address]- 5882 08 Apr, 2015 [facility] [place] [facility] [address] [id number] [place] [address]- 6190 March, [facility] [place] [facility] [address] [id number] [place] [address]- 9968 14 Feb, 2015 [facility] [place] [facility] [address] [id number] [place] [address]- 2893 Feb, [facility] [place] [facility] [address] [id number] [place] [address]- 6009 27 Jan, 2015 [facility] [place] [facility] [address] [id number] [place] [address]- 0532 27 Jan, 2015 [facility] [place] [facility] [address] [id number] [place] [address]- 1072 27 Jan, 2015 [facility] [place] [facility] [address] [id number] [place] [address]- 3003 27 Jan, 2015 [facility] [place] [facility] [address] [id number] [place] [address]- 5403 19 Jan, 2015 [facility] [place] [facility] [address] [id number] [place] [address]- 9977 19 Jan, 2015 [facility] [place] [facility] [address] [id number] [place] [address]- 2946 16 Jan, 2015 [facility] [place] [facility] [address] [id number] [address]- 9972 16 Jan, 2015 [facility] [place] [facility] [address] [id number] [place] [address]- 8594 10 Jan, 2015 [facility] [place] [facility] [address] [id number] [place] [address]- 5840 10 Jan, 2015 [facility] [place] [facility] [address] [id number] [place] [address]- 6644 05 Jan, 2015 [facility] [place] [facility] [address] [id number] [place] [address]- 1638 Jan, [facility] [place] [facility] [address] [id number] [place] [address]- 7922 Dec, 2014 [facility] [place] [facility] [address] [id number] [place] [address]- 2426 Dec, 2014 [facility] [place] [facility] [address] [id number] [place] [address]- 4431 Dec, 2014 [facility] [place] [facility] [address] [id number] [place] [address]- 5518 Dec, 2014 [facility] [place] [facility] [address] [id number] [place] [address]- 3317 Dec, 2014 [facility] [place] [facility] [address] [id number] [place] [address]- 7395 Dec, 2014 [facility] [place] [facility] [address] [id number] [place] [address]- 2868 Dec, 2014 [facility] [place] [facility] [address] [id number] [place] [address]- 9611 Dec, [facility] [place] [facility] [address] [id number] [place] [address]- 4077 Nov, [facility] [place] [facility] [address] [id number] [place] [address]- 2524 Nov, [facility] [place] [facility] [address] [id number] [place] [address]- 4322 Nov, [facility] [place] [facility] [address] [id number] [place] [address]- 3167 Nov, [facility] [place] [facility] [address] [id number] [place] [address]- 5356 Nov, [facility] [place] [facility] [address] [id number] [place] [address]- 1946 Nov, [facility] [place] [facility] [address] [id number] [place] [address]- 6629 Nov, [facility] [place] [facility] [address] [id number] [place] 7090 Nov, [facility] [place] [facility] [address] [id number] [place] [address]- 4854 Oct, [facility] [place] [facility] [address] [id number] [place] [address]- 5373 Oct, [facility] [place] [facility] [address] [id number] [place] [address]- 8627 Sep, [facility] [place] [facility] [address] [id number] [place] [address]- 2275 Sep, [facility] [place] [facility] [address] [id number] [place] [address]- 7638 Sep, [facility] [place] [facility] [address] [id number] [place] [address]- 9540 Sep, [facility] [place] [facility] [address] [id number], [place] [address]- 7240 Aug, [facility] [place] [facility] [address] [id number], [place] [address]- 4834 Aug, [facility] [place] [facility] [address] [id number], [place] [address]- 2433 Aug, [facility] [place] [facility] [address] [id number], [place] [address]- 4620 Aug, [facility] [place] [facility] [address] [id number], [place] [address]- 6889 Aug, [facility] [place] [facility] [address] [id number], [place] [address]- 4537 Aug, [facility] [place] [facility] [address] [id number], [place] [address]- 3068 Aug, [facility] [place] [facility] [address] [id number] 3915 Aug, [facility] [place] [facility] [address] [id number] [place] [address]- 2636 Jul, [facility] [place] [facility] [address] [id number] [place] [address]- 2766 Jul, [facility] [place] [facility] [address] [id number] [place] [address]- 4636 Jul, [facility] [place] [facility] [address] [id number] [place] [address]- 3966 Jul, [facility] [place] [facility] [address] [id number] [place] [address]- 1670 Jul, [facility] [place] [facility] [address] [id number] [place] [address]- 7367 Jun, [facility] [place] [facility] [address] [id number] [place] [address]- 0582 Jun, [facility] [place] [facility] [address] [id number] [place] [address]- 6865 Jun, [facility] [place] [facility] [address] [id number] [place] [address]- 0464 Jun, [facility] [place] [facility] [address] [id number] [place] [address]- 9686 Jun, [facility] [place] [facility] [address] [id number] [place] [address]- 0202 Jun, [facility] [place] [facility] [address] [id number] [place] [address]- 7784 May, [facility] [place] [facility] [address] [id number] [place] [address]- 2882 May, [facility] [place] [facility] [address] [id number] [place] [address]- 1541 May, [facility] [place] [facility] [address] [id number] [place] [address]- 9443 May, [facility] [place] [facility] [address] [id number] [place] [address]- 8181 Apr, [facility] [place] [facility] [address] [id number] [place] [address]- 0168 Apr, [facility] [place] [facility] [address] [id number] [place] [address]- 2042 Apr, [facility] [place] [facility] [address] [id number] [place] [address]- 2355 Apr, [facility] [place] [facility] [address] [id number] [place] [address]- 1487 Apr, [facility] [place] [facility] [address] [id number] [place] [address]- 7352 Apr, [facility] [place] [facility] [address] [id number] [place] [address]- 8548 March, [facility] [place] [facility] [address] [id number] [place] [address]- 0662 March, [facility] [place] [facility] [address] [id number] [place] [address]- 9359 March, [facility] [place] [facility] [address] [id number] [place] [address]- 5245 March, [facility] [place] [facility] [address] [id number] [place] [address]- 3532 Feb, [facility] [place] [facility] [address] [id number] [place] [address]- 9309 Feb, [facility] [place] [facility] [address] [id number] [place] [address]- 7835 Feb, [facility] [place] [facility] [address] [id number] [place] [address]- 8803 Feb, [facility] [place] [facility] [address] [id number] [place] [address]- 3796 Feb, [facility] [place] [facility] [address] [id number] [place] [address]- 6687 Feb, [facility] [place] [facility] [address] [id number] [place] [address]- 6046 Feb, [facility] [place] [facility] [address] [id number] [place] [address]- 8159 Feb, [facility] [place] [facility] [address] [id number] [place] [address]- 7049 Feb, [facility] [place] [facility] [address] [id number] [place] [address]- 2820 Feb, [facility] [place] [facility] [address] [id number] [place] [address]- 1562 Feb, [facility] [place] [facility] [address] [id number] [place] [address]- 3398 Feb, [facility] [place] [facility] [address] [id number] [place] [address] Feb, [facility] [place] [facility] [address] [id number] [place] [address] Feb, [facility] [place] [facility] [address] [id number] [place] [address] Feb, [facility] [place] [facility] [address] [id number] [place] [address] Feb, [facility] [place] [facility] [address] [id number] [place] [address] Jan, [facility] [place] [facility] [address] [id number] [place] [address] Jan, [facility] [place] [facility] [address] [id number] [place] [address] Dec, [facility] [place] [facility] [address] [id number] [place] [address] Dec, [facility] [place] [facility] [address] [id number] [place] [address] Dec, [facility] [place] [facility] [address] [facility] [id number] [place] [address] Dec, [facility] [place] [facility] [address] [id number] [place] [address] Dec, [facility] [place] [facility] [address] [id number] [place] [address] Dec, [facility] [place] [facility] [address] [id number] [place] [address] Dec, [facility] [place] [facility] [address] [id number] [place] [address] Nov, [facility] [place] [facility] [address] [id number] [place] [address] Nov, [facility] [place] [facility] [address] [id number] [place] [address] Nov, [facility] [place] [facility] [address] [id number] [place] [address] Nov, [facility] [place] [facility] [address] [id number] [place] [address] Oct, [facility] [place] [facility] [address] [id number] [place] [address] Oct, [facility] [place] [facility] [address] [id number] [place] [address] Sep, [facility] [place] [facility] [address] [id number] [place] [address] Sep, [facility] [place] [facility] [address] [id number] [place] [address] Aug, [facility] [place] [facility] [address] [id number] [place] [address] Aug, [facility] [place] [facility] [address] [id number] [place] [address] Aug, [facility] [place] [facility] [address] [id number] [place] [address] Aug, [facility] [place] [facility] [address] [id number] [place] [address] Aug, [facility] [place] [facility] [address] [id number] [place] [address] Aug, [facility] [place] [facility] [address] [id number] [place] [address]- [address] Aug, [facility] [place] [facility] [address] [id number] [place] [address]- [address] Aug, [facility] [place] [facility] [address] [id number] [place] [address] Aug, [facility] [place] [facility] [address] [id number] [place] [address] Aug, [facility] [place] [facility] [address] [id number] [place] [address] Jun, [facility] [place] [facility] [address] [id number] [place] [address] Jun, [facility] [place] [facility] [address] [id number] [place] [address] May, [facility] [place] [facility] [address] [id number] [place] [address] Apr, [facility] [place] [facility] [address] [id number] [place] [address] Apr, [facility] [place] [facility] [address] [id number], [place] [address] March, [facility] [place] [facility] [address] [id number], [place] [address] Feb, [facility] [place] [facility] [address] [id number] [place] [address] Jan, [facility] [place] [facility] [address] [id number], [place] [address] Jan, [facility] [place] [facility] [address] [id number] [place] [address] Dec, [facility] [place] [facility] [address] [id number] [place] [address] Dec, [facility] [address] [id number] [place] [address] Nov, [facility] [address] [id number] [place] [address] Jul, [facility] [address] [address] [id number] [place] [address] Jul, [facility] [address] [id number] [place] [address] Jun, [facility] [address] [id number] [place] [address] May, [facility] [address] [id number] [place] [address] May, [facility] [address] [id number] [place] [address] May, [facility] [address] [id number] [place] [address] May, [facility] [address] [id number] [place] [address] May, [facility] [address] [id number] [place] [address] May, [facility] [address] [id number] [place] [address] May, [facility] [address] [id number] [place] [address] Apr, [facility] [place] [facility] [address] [id number] [place] [address] Apr, [facility] [address] [id number] [place] [address] Apr, [facility] [address] [id number] [place] [address] Apr, IMMUNIZATIONS No Known Immunizations SOCIAL HISTORY Never Assessed REASON FOR VISIT Controlled Med Refill 05/27/18 PLAN OF CARE VITAL SIGNS MEDICATIONS Medication Instructions Dosage Frequency Start Date End Date Duration Status Ambien 10 MG Orally Once a day 1 tablet at bedtime 24h May, 28 days Active Hydrocodone-Acetaminophen 10-325 MG Orally 4 times a day 1 tablet as needed for pain 6h Apr, 28 days Active RESULTS No Results PROCEDURES No Known procedures INSTRUCTIONS MEDICATIONS ADMINISTERED No Known Medications MEDICAL (GENERAL) HISTORY Type Description Date Medical History hypogonadism Medical History hyperlipidemia Medical History pre-diabetic Medical History chronic pain Medical History COPD Surgical History skin cancer 1999 Hospitalization History surgery Hospitalization History MRSA infection 05/2015
--- OUTSIDE RECORDS SUMMARY | 2018-10-30 16:47 | XMS REPORT ---
Author Author JOSÉ LUIS RODRÍGUEZ Organization [facility] Address [address] [place] [address] Care Team Providers Care Child Support Investigator Name Role Phone JOSÉ LUIS RODRÍGUEZ Unavailable PROBLEMS Type Condition ICD9-CM Code [id number] Code Onset Dates Condition Status SNOMED Code Problem Hypertriglyceridemia E78.1 Active 717960390 Problem 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 Active 44971227 Problem Family history of diabetes mellitus Z83.3 Active 068367117 Problem History of MRSA infection Z86.14 Active 504923436 Problem Chronic pain G89.29 Active 46080329 Problem Dysthymia F34.1 Active 83362440 Problem Insomnia, unspecified type G47.00 Active 061502331 Problem Chronic obstructive pulmonary disease, unspecified COPD type J44.9 Active 02004777 Problem Osteoarthritis M19.90 Active 549305457 Problem Primary insomnia F51.01 Active 1505029 Problem Essential hypertension I10 Active 49421691 ALLERGIES No Information ENCOUNTERS Encounter Location Date Diagnosis [facility] [id number] [place] [address] 03554- 2850 Jul, [facility] [id number] [place] [address] 44853- 1762 Jun, Chronic pain G89.29 and Insomnia, unspecified type G47.00 [facility] [id number] [place] [address] 66565- 5231 Jun, Seborrheic keratoses L82.[address] 32736- 7620 May, Dysthymia F34.1 ; Chronic obstructive pulmonary disease, unspecified COPD type J44.9 ; Chronic pain G89.29 ; Insomnia, unspecified type G47.00 ; BMI 40.0-44.9, adult Z68.41 and Other seborrheic keratosis L82.1 [facility] [id number] [place] [address] 44517- 7917 May, Chronic pain G89.29 and Insomnia, unspecified type G47.00 [facility] [id number] [place] [address] 27148- 0528 Apr, Hypertriglyceridemia E78.1 [facility] [address] 025317- 5252 Apr, Chronic pain G89.29 and Insomnia, unspecified type G47.00 [facility] [id number] [place] [address] 277188- 3593 15 Apr, 2018 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 ; Hypertriglyceridemia E78.1 and Fatigue, unspecified type R53.83 [facility] [id number] [place] [address] 39760- 8397 Apr, 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 ; Chronic pain G89.29 ; Primary insomnia F51.01 ; Chronic obstructive pulmonary disease, unspecified COPD type J44.9 ; Dysthymia F34.1 ; Hypertriglyceridemia E78.1 ; Fatigue, unspecified type R53.83 and Rash R21 [facility] [id number] [place] [address] 51364- 5638 March, Chronic pain G89.29 and Insomnia, unspecified type G47.00 [facility] [id number] [place] [address] 21555- 2030 March, Insomnia, unspecified type G47.00 [facility] [id number] [place] [address] 83293- 5102 Feb, Chronic pain G89.29 [facility] [id number] [place] [address] 61313- 2170 Feb, Chronic pain G89.29 [facility] [id number] [place] [address] 38598- 6468 Jan, Chronic pain G89.29 [facility] [id number] [address] 5065 Dec, Chronic pain G89.29 [facility] [id number] [place] [address] 42572- 6784 Nov, Chronic pain G89.29 and Insomnia, unspecified type G47.00 [facility] [id number] [place] [address] 93158- 6576 Oct, Insomnia, unspecified type G47.00 ; Chronic pain G89.29 and Colon cancer screening Z12.11 [facility] [id number] [place] [address] 93971- 9411 Oct, Chronic pain G89.29 [facility] [id number] [place] [address] 70388- 8126 Sep, Chronic pain G89.29 and Insomnia, unspecified type G47.00 [facility] [id number] [place] [address] 33898- 5890 Sep, Chronic pain G89.29 [facility] [id number] [place] [address] 89423- 9371 Sep, [facility] [id number] [place] [address] 71714- 6680 Aug, Medicare welcome exam Z00.00 ; Encounter for immunization Z23 ; Colon cancer screening Z12.11 and Encounter for screening for lung cancer Z12.2 [facility] [place] [id number] [place] [address] 39404- 4718 Aug, [facility] [id number] [place] [address] 21798- 2878 Aug, Chronic pain G89.29 and Insomnia, unspecified type G47.00 [facility] [id number] [place] [address] 75867- 4456 Aug, Hypertriglyceridemia E78.1 [facility] [id number] [place] [address] 93445- 7561 Jul, Chronic pain G89.29 and Insomnia, unspecified type G47.00 [facility] [id number] [place] [address] 80512- 1519 Jun, Hypertriglyceridemia E78.1 [facility] [id number] [place] [address] 57612- 3658 Jun, Chronic pain G89.29 and Insomnia, unspecified type G47.00 [facility] [address] 87640- 0429 Jun, [facility] [address] 86475- 0847 Jun, [facility] [place] [address] 27698- 7547 May, 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 ; Chronic pain G89.29 ; Insomnia, unspecified type G47.00 and Rash R21 [facility] [address] 16544- 1768 May, Chronic pain G89.29 [facility] [address] 22001- 2513 May, Hypertriglyceridemia E78.1 [facility] [address] 64661- 7392 Apr, Chronic pain G89.29 [facility] [address] 02709- 0598 Apr, Chronic pain G89.29 ; 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 ; Hypertriglyceridemia E78.1 and Primary insomnia F51.01 [facility] [id number] [place] [address] 94222- 2879 March, Chronic pain G89.29 [facility] [place] [address] 16215- 8589 March, Chronic pain G89.29 [facility] [address] 50527- 7875 Feb, [facility] [address] [place] [address] 06417- 8547 Feb, Chronic pain G89.29 [facility] [id number] [place] [address] 72518- 4876 Jan, Chronic pain G89.29 [facility] [id number] [place] [address] 15952- 3649 Dec, Chronic pain G89.29 [facility] [id number] [place] [address] 06391- 6563 Dec, [facility] [address] 52379- 9045 Nov, Hypertriglyceridemia E78.1 [facility] [id number] [place] [address] 38154- 9288 Nov, [facility] [id number] [place] [address] 48754- 1716 Nov, Chronic pain G89.29 ; Hypertriglyceridemia E78.1 and Chronic obstructive pulmonary disease, unspecified COPD type J44.9 [facility] [id number] [place] [address] 88058- 5248 Nov, Chronic pain G89.29 [facility] [id number] [place] [address] 57645- 9048 Oct, Chronic pain G89.29 [facility] [id number] [place] [address] 01445- 9890 05 Oct, 2016 [facility] [address] [place] [address] 79216- 1458 29 Sep, 2016 Chronic obstructive pulmonary disease, unspecified COPD type J44.9 and Abscess L02.91 [facility] [address] [place] [address] 57939- 6631 16 Sep, 2016 Chronic pain G89.29 [facility] [id number] [place] [address] 94792- 3357 Aug, Chronic pain G89.29 [facility] [id number] [place] [address] 75970- 9373 Aug, Chronic pain G89.29 [facility] [id number] [place] [address] 15445 2546 Aug, Cutaneous horn L85.8 and Skin tag L91.8 [facility] [address] 63780- 1080 Jul, [facility] [id number] [place] [address] 03692- 7122 Jul, Hypertriglyceridemia E78.1 [facility] [id number] [place] [address] 81413- 2442 Jul, Other chronic pain G89.29 ; Essential hypertension I10 ; 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 ; Hyperlipidemia, unspecified hyperlipidemia type E78.5 and Cutaneous horn L85.8 [facility] [id number] [place] [address] 74732- 4939 Jun, Chronic pain G89.29 [facility] [address] 11807- 2614 May, Chronic pain G89.29 [place] [id number] [place] [address] 67717- 3011 May, [facility] [id number] [place] [address] 60553- 5289 May, Skin infection L08.9 [facility] [id number] [place] [address] 99193- 2936 Apr, Chronic pain G89.29 [facility] [id number] [place] [address] 31965- 8166 Apr, [facility] [id number] [place] [address] 74801- 4507 Apr, Chronic pain G89.29 [facility] [id number] [place] [address] 15172- 6877 March, [facility] [id number] [place] [address] 20293- 9641 Feb, Chronic pain G89.29 ; 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 and Hypertriglyceridemia E78.1 [facility] [id number] [place] [address] 08303- 4678 Feb, [facility] [id number] [place] [address] 54866- 3590 Jan, [facility] [id number] [place] [address] 59903- 2722 Dec, [facility] [id number] [place] [address] 02106- 8760 Nov, [facility] [id number] [place] [address] 60112- 4911 Oct, [facility] [id number] [place] [address] 13935- 6371 Oct, 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 [facility] [id number] [place] [address] 01291- 7564 Oct, Other chronic pain G89.29 ; Chronic obstructive pulmonary disease, unspecified COPD type J44.9 ; Insomnia, unspecified type G47.00 ; 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 and Essential hypertension I10 [facility] [id number] [place] [address] 15524- 4315 Sep, [facility] [id number] [place] [address] 59644- 6511 Aug, [facility] [id number] [place] [address] 41778- 7781 30 Jul, 2015 [facility] [id number] [place] [address] 19820- 3148 14 Jul, 2015 [facility] [id number] [place] [address] 40979- 5265 Jul, Overweight 278.02 and Hyperinsulinemia 251.1 [facility] [address] 70540- 4955 Jul, [facility] [address] 24780- 3796 Jun, Skin tags, multiple acquired 701.9 [facility] [address] 01298- 4530 Jun, Other chronic pain 338.29 ; Erectile dysfunction 607.84 ; Hyperinsulinemia 251.1 and Hypertension 401.9 [place] [address] 54004- 1631 Jun, [facility] [address] 14913- 4098 Jun, [facility] [address] 53312- 8277 Jun, [facility] [address] 09873- 3918 May, Pure hyperglyceridemia 272.1 [facility] [address] 01732- 3771 May, Pure hyperglyceridemia 272.1 [facility] [address] 75607- 2237 May, [facility] [address] 83574- 6507 May, Overgrown toenails 703.8 ; Seborrheic keratosis 702.19 ; Skin tag 701.9 ; Warts, genital 078.11 ; Cramps, extremity 729.82 ; Increased appetite 783.6 and Heat rash 705.1 [facility] [id number] [place] [address] 07594- 7220 May, [facility] [address] 96096- 5944 Apr, [facility] [place] [facility] [address] [id number] [place] [address]- 2019 08 Apr, 2015 [facility] [place] [facility] [address] [id number] [place] [address]- 1610 March, [facility] [place] [facility] [address] [id number] [place] [address]- 8541 14 Feb, 2015 [facility] [place] [facility] [address] [id number] [place] [address]- 2560 Feb, [facility] [place] [facility] [address] [id number] [place] [address]- 4203 27 Jan, 2015 [facility] [place] [facility] [address] [id number] [place] [address]- 6553 27 Jan, 2015 [facility] [place] [facility] [address] [id number] [place] [address]- 9991 27 Jan, 2015 [facility] [place] [facility] [address] [id number] [place] [address]- 4593 27 Jan, 2015 [facility] [place] [facility] [address] [id number] [place] [address]- 0300 19 Jan, 2015 [facility] [place] [facility] [address] [id number] [place] [address]- 8450 19 Jan, 2015 [facility] [place] [facility] [address] [id number] [place] [address]- 3883 16 Jan, 2015 [facility] [place] [facility] [address] [id number] [address]- 1147 16 Jan, 2015 [facility] [place] [facility] [address] [id number] [place] [address]- 7519 10 Jan, 2015 [facility] [place] [facility] [address] [id number] [place] [address]- 6485 10 Jan, 2015 [facility] [place] [facility] [address] [id number] [place] [address]- 7415 05 Jan, 2015 [facility] [place] [facility] [address] [id number] [place] [address]- 2471 Jan, [facility] [place] [facility] [address] [id number] [place] [address]- 1478 Dec, 2014 [facility] [place] [facility] [address] [id number] [place] [address]- 4256 Dec, 2014 [facility] [place] [facility] [address] [id number] [place] [address]- 0655 Dec, 2014 [facility] [place] [facility] [address] [id number] [place] [address]- 4940 Dec, 2014 [facility] [place] [facility] [address] [id number] [place] [address]- 5195 Dec, 2014 [facility] [place] [facility] [address] [id number] [place] [address]- 1309 Dec, 2014 [facility] [place] [facility] [address] [id number] [place] [address]- 5237 Dec, 2014 [facility] [place] [facility] [address] [id number] [place] [address]- 2100 Dec, [facility] [place] [facility] [address] [id number] [place] [address]- 4680 Nov, [facility] [place] [facility] [address] [id number] [place] [address]- 4048 Nov, [facility] [place] [facility] [address] [id number] [place] [address]- 8438 Nov, [facility] [place] [facility] [address] [id number] [place] [address]- 2317 Nov, [facility] [place] [facility] [address] [id number] [place] [address]- 4104 Nov, [facility] [place] [facility] [address] [id number] [place] [address]- 2349 Nov, [facility] [place] [facility] [address] [id number] [place] [address]- 9041 Nov, [facility] [place] [facility] [address] [id number] [place] 6148 Nov, [facility] [place] [facility] [address] [id number] [place] [address]- 4174 Oct, [facility] [place] [facility] [address] [id number] [place] [address]- 1775 Oct, [facility] [place] [facility] [address] [id number] [place] [address]- 5161 Sep, [facility] [place] [facility] [address] [id number] [place] [address]- 5968 Sep, [facility] [place] [facility] [address] [id number] [place] [address]- 0276 Sep, [facility] [place] [facility] [address] [id number] [place] [address]- 8027 Sep, [facility] [place] [facility] [address] [id number], [place] [address]- 8994 Aug, [facility] [place] [facility] [address] [id number], [place] [address]- 8789 Aug, [facility] [place] [facility] [address] [id number], [place] [address]- 0012 Aug, [facility] [place] [facility] [address] [id number], [place] [address]- 2805 Aug, [facility] [place] [facility] [address] [id number], [place] [address]- 1244 Aug, [facility] [place] [facility] [address] [id number], [place] [address]- 2962 Aug, [facility] [place] [facility] [address] [id number], [place] [address]- 2488 Aug, [facility] [place] [facility] [address] [id number] 9777 Aug, [facility] [place] [facility] [address] [id number] [place] [address]- 2703 Jul, [facility] [place] [facility] [address] [id number] [place] [address]- 8316 Jul, [facility] [place] [facility] [address] [id number] [place] [address]- 6956 Jul, [facility] [place] [facility] [address] [id number] [place] [address]- 7781 Jul, [facility] [place] [facility] [address] [id number] [place] [address]- 5160 Jul, [facility] [place] [facility] [address] [id number] [place] [address]- 4282 Jun, [facility] [place] [facility] [address] [id number] [place] [address]- 8949 Jun, [facility] [place] [facility] [address] [id number] [place] [address]- 5153 Jun, [facility] [place] [facility] [address] [id number] [place] [address]- 3717 Jun, [facility] [place] [facility] [address] [id number] [place] [address]- 4970 Jun, [facility] [place] [facility] [address] [id number] [place] [address]- 0342 Jun, [facility] [place] [facility] [address] [id number] [place] [address]- 4618 May, [facility] [place] [facility] [address] [id number] [place] [address]- 2542 May, [facility] [place] [facility] [address] [id number] [place] [address]- 6316 May, [facility] [place] [facility] [address] [id number] [place] [address]- 4296 May, [facility] [place] [facility] [address] [id number] [place] [address]- 6606 Apr, [facility] [place] [facility] [address] [id number] [place] [address]- 2917 Apr, [facility] [place] [facility] [address] [id number] [place] [address]- 6182 Apr, [facility] [place] [facility] [address] [id number] [place] [address]- 8558 Apr, [facility] [place] [facility] [address] [id number] [place] [address]- 9549 Apr, [facility] [place] [facility] [address] [id number] [place] [address]- 7131 Apr, [facility] [place] [facility] [address] [id number] [place] [address]- 5288 March, [facility] [place] [facility] [address] [id number] [place] [address]- 5440 March, [facility] [place] [facility] [address] [id number] [place] [address]- 0302 March, [facility] [place] [facility] [address] [id number] [place] [address]- 6788 March, [facility] [place] [facility] [address] [id number] [place] [address]- 8964 Feb, [facility] [place] [facility] [address] [id number] [place] [address]- 5341 Feb, [facility] [place] [facility] [address] [id number] [place] [address]- 6870 Feb, [facility] [place] [facility] [address] [id number] [place] [address]- 0574 Feb, [facility] [place] [facility] [address] [id number] [place] [address]- 8876 Feb, [facility] [place] [facility] [address] [id number] [place] [address]- 4126 Feb, [facility] [place] [facility] [address] [id number] [place] [address]- 9181 Feb, [facility] [place] [facility] [address] [id number] [place] [address]- 0209 Feb, [facility] [place] [facility] [address] [id number] [place] [address]- 6120 Feb, [facility] [place] [facility] [address] [id number] [place] [address]- 3984 Feb, [facility] [place] [facility] [address] [id number] [place] [address]- 2955 Feb, [facility] [place] [facility] [address] [id number] [place] [address]- 4313 Feb, [facility] [place] [facility] [address] [id number] [place] [address]- 2912 Feb, [facility] [place] [facility] [address] [id number] [place] [address]- 6972 Feb, [facility] [place] [facility] [address] [id number] [place] [address]- 2434 Feb, [facility] [place] [facility] [address] [id number] [place] [address]- 2652 Feb, [facility] [place] [facility] [address] [id number] [place] [address]- 1588 Jan, [facility] [place] [facility] [address] [id number] [place] [address]- 6684 Jan, [facility] [place] [facility] [address] [id number] [place] [address]- 3444 Dec, [facility] [place] [facility] [address] [id number] [place] [address]- 6492 Dec, [facility] [place] [facility] [address] [id number] [place] [address]- 7640 Dec, [facility] [place] [facility] [address] [facility] [id number] [place] [address]- 9630 Dec, [facility] [place] [facility] [address] [id number] [place] [address]- 8329 Dec, [facility] [place] [facility] [address] [id number] [place] [address] Dec, [facility] [place] [facility] [address] [id number] [place] [address] Dec, [facility] [place] [facility] [address] [id number] [place] [address] Nov, [facility] [place] [facility] [address] [id number] [place] [address] Nov, [facility] [place] [facility] [address] [id number] [place] [address] Nov, [facility] [place] [facility] [address] [id number] [place] [address] Nov, [facility] [place] [facility] [address] [id number] [place] [address] Oct, [facility] [place] [facility] [address] [id number] [place] [address] Oct, [facility] [place] [facility] [address] [id number] [place] [address] Sep, [facility] [place] [facility] [address] [id number] [place] [address] Sep, [facility] [place] [facility] [address] [id number] [place] [address] Aug, [facility] [place] [facility] [address] [id number] [place] [address] Aug, [facility] [place] [facility] [address] [id number] [place] [address] Aug, [facility] [place] [facility] [address] [id number] [place] [address] Aug, [facility] [place] [facility] [address] [id number] [place] [address] Aug, [facility] [place] [facility] [address] [id number] [place] [address] Aug, [facility] [place] [facility] [address] [id number] [place] [address] Aug, [facility] [place] [facility] [address] [id number] [place] [address] Aug, [facility] [place] [facility] [address] [id number] [place] [address] Aug, [facility] [place] [facility] [address] [id number] [place] [address] Aug, [facility] [place] [facility] [address] [id number] [place] [address] Jun, [facility] [place] [facility] [address] [id number] [place] [address] Jun, [facility] [place] [facility] [address] [id number] [place] [address] May, [facility] [place] [facility] [address] [id number] [place] [address] Apr, [facility] [place] [facility] [address] [id number] [place] [address] Apr, [facility] [place] [facility] [address] [id number] [address] March, [facility] [place] [facility] [address] [id number], [place] [address] Feb, [facility] [place] [facility] [address] [id number] [place] [address] Jan, [facility] [place] [facility] [address] [id number], [place] [address] Jan, [facility] [place] [facility] [address] [id number] [place] [address] Dec, [facility] [place] [facility] [address] [id number] [place] [address] Dec, [facility] [address] [id number] [place] [address] Nov, [facility] [address] [id number] [place] [address] Jul, [facility] [address] [id number] [place] [address] Jul, [facility] [address] [id number] [place] [address] Jun, [facility] [address] [id number] [place] [address] May, [facility] [address] [id number] [place] [address] May, [facility] [address] [id number] [place] [address] May, [facility] [address] [id number] [place] [address] May, [facility] [address] [id number] [place] [address] May, [facility] [address] [id number] [place] [address] May, [facility] [address] [id number] [place] [address]- [id number] May, [facility] [address] [id number] [place] [address] Apr, [facility] [place] [facility] [address] [id number] [place] [address] Apr, [facility] [address] [id number] [place] [address] Apr, [facility] [address] [id number] [place] [address] Apr, IMMUNIZATIONS No Known Immunizations SOCIAL HISTORY Never Assessed REASON FOR VISIT Lab deferred/meds PLAN OF CARE VITAL SIGNS MEDICATIONS Medication Instructions Dosage Frequency Start Date End Date Duration Status Lovastatin 40 mg Orally Once a day 1 tablet with the evening meal 24h Apr, 30 day(s) Active MetFORMIN HCl ER 500 mg 1 tablet twice daily x 1 week, then increase to 1 tab in am and 2tabs in pm x 1 week, then 2 tabs twice daily thereafter Apr, 30 day(s) Active RESULTS No Results PROCEDURES No Known procedures INSTRUCTIONS MEDICATIONS ADMINISTERED No Known Medications MEDICAL (GENERAL) HISTORY Type Description Date Medical History hypogonadism Medical History hyperlipidemia Medical History pre-diabetic Medical History chronic pain Medical History COPD Surgical History skin cancer 1999 Hospitalization History surgery Hospitalization History MRSA infection 05/2015
--- OUTSIDE RECORDS SUMMARY | 2018-10-30 16:48 | XMS REPORT ---
Author Author JOSÉ LUIS RODRÍGUEZ Organization [facility] Address [address] [place] [address] Care Team Providers Care Industrial Methods Consultant Name Role Phone JOSÉ LUIS RODRÍGUEZ Unavailable PROBLEMS Type Condition ICD9-CM Code QAY17-DS Code Onset Dates Condition Status SNOMED Code Problem Hypertriglyceridemia E78.1 Active 102090942 Problem 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 Active 61516566 Problem Family history of diabetes mellitus Z83.3 Active 600912044 Problem History of MRSA infection Z86.14 Active 383200348 Problem Chronic pain G89.29 Active 54644094 Problem Dysthymia F34.1 Active 33856933 Problem Insomnia, unspecified type G47.00 Active 395564354 Problem Chronic obstructive pulmonary disease, unspecified COPD type J44.9 Active 75439540 Problem Osteoarthritis M19.90 Active 343838947 Problem Primary insomnia F51.01 Active 6523789 Problem Essential hypertension I10 Active 13540986 ALLERGIES No Information ENCOUNTERS Encounter Location Date Diagnosis [facility] [id number] [place] [address] 17072- 7603 Jul, [facility] [id number] [place] [address] 20882- 2487 Jun, Chronic pain G89.29 and Insomnia, unspecified type G47.00 [facility] [id number] [place] [address] 90696- 2503 Jun, Seborrheic keratoses L82.[address] 72253- 8476 May, Dysthymia F34.1 ; Chronic obstructive pulmonary disease, unspecified COPD type J44.9 ; Chronic pain G89.29 ; Insomnia, unspecified type G47.00 ; BMI 40.0-44.9, adult Z68.41 and Other seborrheic keratosis L82.1 [facility] [id number] [place] [address] 24630- 5905 May, Chronic pain G89.29 and Insomnia, unspecified type G47.00 [facility] [id number] [place] [address] 23838- 2456 Apr, Hypertriglyceridemia E78.1 [facility] [facility] [address] 040756- 7600 Apr, Chronic pain G89.29 and Insomnia, unspecified type G47.00 [facility] [id number] [place] [address] 896897- 5888 15 Apr, 2018 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 ; Hypertriglyceridemia E78.1 and Fatigue, unspecified type R53.83 [facility] [facility] [id number] [place] [address] 06135- 7439 Apr, 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 ; Chronic pain G89.29 ; Primary insomnia F51.01 ; Chronic obstructive pulmonary disease, unspecified COPD type J44.9 ; Dysthymia F34.1 ; Hypertriglyceridemia E78.1 ; Fatigue, unspecified type R53.83 and Rash R21 [facility] [id number] [place] [address] 50060- 8254 March, Chronic pain G89.29 and Insomnia, unspecified type G47.00 [facility] [facility] [id number] [place] [address] 62371- 4817 March, Insomnia, unspecified type G47.00 [facility] [facility] [id number] [place] [address] 75143- 2783 Feb, Chronic pain G89.29 [facility] [id number] [place] [address] 04411- 9960 Feb, Chronic pain G89.29 [facility] [id number] [place] [address] 36629- 5582 Jan, Chronic pain G89.29 [facility] [id number] [address] 8857 Dec, Chronic pain G89.29 [facility] [id number] [place] [address] 27441- 1665 Nov, Chronic pain G89.29 and Insomnia, unspecified type G47.00 [facility] [id number] [place] [address] 60300- 8691 Oct, Insomnia, unspecified type G47.00 ; Chronic pain G89.29 and Colon cancer screening Z12.11 [facility] [id number] [place] [address] 89311- 8583 Oct, Chronic pain G89.29 [facility] [id number] [place] [address] 38767- 0466 Sep, Chronic pain G89.29 and Insomnia, unspecified type G47.00 [facility] [facility] [id number] [place] [address] 45802- 5546 Sep, Chronic pain G89.29 [facility] [id number] [place] [address] 36927- 1475 Sep, [facility] [id number] [place] [address] 16007- 0345 Aug, Medicare welcome exam Z00.00 ; Encounter for immunization Z23 ; Colon cancer screening Z12.11 and Encounter for screening for lung cancer Z12.2 [facility] [id number] [place] [address] 00758- 1739 Aug, [facility] [facility] [id number] [place] [address] 29226- 5136 Aug, Chronic pain G89.29 and Insomnia, unspecified type G47.00 [facility] [facility] [id number] [place] [address] 57517- 2481 Aug, Hypertriglyceridemia E78.1 [facility] [facility] [id number] [place] [address] 43654- 3320 Jul, Chronic pain G89.29 and Insomnia, unspecified type G47.00 [facility] [id number] [place] [address] 69306- 6979 Jun, Hypertriglyceridemia E78.1 [facility] [id number] [place] [address] 63964- 7264 Jun, Chronic pain G89.29 and Insomnia, unspecified type G47.00 [facility] [address] 44177- 6440 Jun, [facility] [address] 11120- 3464 Jun, [facility] [address] 01602- 7491 May, 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 ; Chronic pain G89.29 ; Insomnia, unspecified type G47.00 and Rash R21 [facility] [address] 83176- 4784 May, Chronic pain G89.29 [facility] [address] 31644- 4385 May, Hypertriglyceridemia E78.1 [facility] [address] 03435- 6079 Apr, Chronic pain G89.29 [facility] [address] 80073- 6567 Apr, Chronic pain G89.29 ; 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 ; Hypertriglyceridemia E78.1 and Primary insomnia F51.01 [facility] [id number] [place] [address] 98535- 9795 March, Chronic pain G89.29 [facility] [address] 38175- 8204 March, Chronic pain G89.29 [facility] [address] 58097- 7817 Feb, [facility] [address] [place] [address] 46440- 3468 Feb, Chronic pain G89.29 [facility] [id number] [place] [address] 56759- 5814 Jan, Chronic pain G89.29 [facility] [id number] [place] [address] 97364- 1953 Dec, Chronic pain G89.29 [facility] [id number] [place] [address] 77646- 8632 Dec, [facility] [address] 96423- 8944 Nov, Hypertriglyceridemia E78.1 [facility] [id number] [place] [address] 43021- 1411 Nov, [facility] [id number] [place] [address] 49403- 2255 Nov, Chronic pain G89.29 ; Hypertriglyceridemia E78.1 and Chronic obstructive pulmonary disease, unspecified COPD type J44.9 [facility] [id number] [place] [address] 51620- 3611 Nov, Chronic pain G89.29 [facility] [id number] [place] [address] 22635- 0944 Oct, Chronic pain G89.29 [facility] [id number] [place] [address] 18332- 8249 05 Oct, 2016 [facility] [address] [place] [address] 24661- 3654 29 Sep, 2016 Chronic obstructive pulmonary disease, unspecified COPD type J44.[address] [facility] [address] [place] [address] 50951- 6309 16 Sep, [address] [facility] [id number] [place] [address] 29172- 5471 Aug, Chronic pain G89.29 [facility] [id number] [place] [address] 51095- 3809 Aug, Chronic pain G89.29 [facility] [id number] [place] [address] 09093 2546 Aug, Cutaneous horn L85.8 and Skin tag L91.8 [facility] [address] 37406- 8820 Jul, [facility] [id number] [place] [address] 83903- 2477 Jul, Hypertriglyceridemia E78.1 [facility] [id number] [place] [address] 32824- 9571 Jul, Other chronic pain G89.29 ; Essential hypertension I10 ; 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 ; Hyperlipidemia, unspecified hyperlipidemia type E78.5 and Cutaneous horn L85.8 [facility] [id number] [place] [address] 69296- 1758 Jun, Chronic pain G89.29 [facility] [address] 10664- 7306 May, Chronic pain G89.29 [place] [id number] [place] [address] 95560- 7960 May, [facility] [id number] [place] [address] 85481- 6008 May, Skin infection L08.9 [facility] [id number] [place] [address] 39497- 5598 Apr, Chronic pain G89.29 [facility] [id number] [place] [address] 82731- 6646 Apr, [facility] [id number] [place] [address] 38907- 3132 Apr, Chronic pain G89.29 [facility] [id number] [place] [address] 14680- 6327 March, [facility] [id number] [place] [address] 50908- 8080 Feb, Chronic pain G89.29 ; 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 [facility] [id number] [place] [address] 19580- 2312 Feb, [facility] [id number] [place] [address] 10102- 4018 Jan, [facility] [id number] [place] [address] 07345- 1947 Dec, [facility] [id number] [place] [address] 80456- 0862 Nov, [facility] [id number] [place] [address] 23035- 5386 Oct, [facility] [id number] [place] [address] 02102- 5273 Oct, 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 [facility] [id number] [place] [address] 15907- 0894 Oct, Other chronic pain G89.29 ; Chronic obstructive pulmonary disease, unspecified COPD type J44.9 ; Insomnia, unspecified type G47.00 ; 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 and Essential hypertension I10 [facility] [id number] [place] [address] 17756- 8909 Sep, [facility] [id number] [place] [address] 58936- 1151 Aug, [facility] [id number] [place] [address] 17639- 2744 30 [address], 2015 [facility] [id number] [place] [address] 70507- 0906 14 Jul, 2015 [facility] [id number] [place] [address] 76634- 5006 Jul, Overweight [address] [facility] [address] 67223- 9523 Jul, [facility] [address] 00449- 7845 Jun, Skin tags, multiple acquired 701.9 [facility] [address] 48836- 6087 Jun, Other chronic pain 338.29 ; Erectile dysfunction 607.84 ; Hyperinsulinemia 251.1 and Hypertension 401.9 [place] [address] 79496- 6283 Jun, [facility] [address] 01320- 6067 Jun, [facility] [address] 14234- 4071 Jun, [facility] [address] 63166- 5577 May, Pure hyperglyceridemia 272.1 [facility] [address] 40680- 4381 May, Pure hyperglyceridemia 272.1 [facility] [address] 94033- 8234 May, [facility] [address] 21615- 0640 May, Overgrown toenails 703.8 ; Seborrheic keratosis 702.19 ; Skin tag 701.9 ; Warts, genital 078.11 ; Cramps, extremity 729.82 ; Increased appetite 783.6 and Heat rash 705.1 [facility] [id number] [place] [address] 61138- 7224 May, [facility] [address] 36219- 4887 Apr, [facility] [place] [facility] [address] [id number] [place] [address]- 1482 08 Apr, 2015 [facility] [place] [facility] [address] [id number] [place] [address]- 2514 March, [facility] [place] [facility] [address] [id number] [place] [address]- 2235 14 Feb, 2015 [facility] [place] [facility] [address] [id number] [place] [address]- 6989 Feb, [facility] [place] [facility] [address] [id number] [place] [address]- 2821 27 Jan, 2015 [facility] [place] [facility] [address] [id number] [place] [address]- 6948 27 Jan, 2015 [facility] [place] [facility] [address] [id number] [place] [address]- 1290 27 Jan, 2015 [facility] [place] [facility] [address] [id number] [place] [address]- 8886 27 Jan, 2015 [facility] [place] [facility] [address] [id number] [place] [address]- 7899 19 Jan, 2015 [facility] [place] [facility] [address] [id number] [place] [address]- 6571 19 Jan, 2015 [facility] [place] [facility] [address] [id number] [place] [address]- 6326 16 Jan, 2015 [facility] [place] [facility] [address] [id number] [address]- 1088 16 Jan, 2015 [facility] [place] [facility] [address] [id number] [place] [address]- 5555 10 Jan, 2015 [facility] [place] [facility] [address] [id number] [place] [address]- 6302 10 Jan, 2015 [facility] [place] [facility] [address] [id number] [place] [address]- 6821 05 Jan, 2015 [facility] [place] [facility] [address] [id number] [place] [address]- 2648 Jan, [facility] [place] [facility] [address] [id number] [place] [address]- 7261 Dec, 2014 [facility] [place] [facility] [address] [id number] [place] [address]- 5356 Dec, 2014 [facility] [place] [facility] [address] [id number] [place] [address]- 0557 Dec, 2014 [facility] [place] [facility] [address] [id number] [place] [address]- 1804 Dec, 2014 [facility] [place] [facility] [address] [id number] [place] [address]- 7184 Dec, 2014 [facility] [place] [facility] [address] [id number] [place] [address]- 0595 Dec, 2014 [facility] [place] [facility] [address] [id number] [place] [address]- 0133 Dec, 2014 [facility] [place] [facility] [address] [id number] [place] [address]- 4157 Dec, [facility] [place] [facility] [address] [id number] [place] [address]- 9410 Nov, [facility] [place] [facility] [address] [id number] [place] [address]- 2993 Nov, [facility] [place] [facility] [address] [id number] [place] [address]- 1415 Nov, [facility] [place] [facility] [address] [id number] [place] [address]- 0989 Nov, [facility] [place] [facility] [address] [id number] [place] [address]- 8423 Nov, [facility] [place] [facility] [address] [id number] [place] [address]- 2998 Nov, [facility] [place] [facility] [address] [id number] [place] [address]- 7334 Nov, [facility] [place] [facility] [address] [id number] [place] 8526 Nov, [facility] [place] [facility] [address] [id number] [place] [address]- 8050 Oct, [facility] [place] [facility] [address] [id number] [place] [address]- 3649 Oct, [facility] [place] [facility] [address] [id number] [place] [address]- 2025 Sep, [facility] [place] [facility] [address] [id number] [place] [address]- 9991 Sep, [facility] [place] [facility] [address] [id number] [place] [address]- 4661 Sep, [facility] [place] [facility] [address] [id number] [place] [address]- 3676 Sep, [facility] [place] [facility] [address] [id number] [address]- 9076 Aug, [facility] [place] [facility] [address] [id number] [place] [address]- 3373 Aug, [facility] [place] [facility] [address] [id number] [place] [address]- 3601 Aug, [facility] [place] [facility] [address] [id number] [place] [address]- 6868 Aug, [facility] [place] [facility] [address] [id number] [place] [address]- 5764 Aug, [facility] [place] [facility] [address] [id number] [place] [address]- 7851 Aug, [facility] [place] [facility] [address] [id number] [place] [address]- 7246 Aug, [facility] [place] [facility] [address] [id number] [place] 9289 Aug, [facility] [place] [facility] [address] [id number] [place] [address]- 3510 Jul, [facility] [place] [facility] [address] [id number] [place] [address]- 7496 Jul, [facility] [place] [facility] [address] [id number] [place] [address]- 8996 Jul, [facility] [place] [facility] [address] [id number] [place] [address]- 9823 Jul, [facility] [place] [facility] [address] [id number] [place] [address]- 7505 Jul, [facility] [place] [facility] [address] [id number] [place] [address]- 9287 Jun, [facility] [place] [facility] [address] [id number] [place] [address]- 6002 Jun, [facility] [place] [facility] [address] [id number] [place] [address]- 7755 Jun, [facility] [place] [facility] [address] [id number] [place] [address]- 2972 Jun, [facility] [place] [facility] [address] [id number] [place] [address]- 4366 Jun, [facility] [place] [facility] [address] [id number] [place] [address]- 1433 Jun, [facility] [place] [facility] [address] [id number] [place] [address]- 2605 May, [facility] [place] [facility] [address] [id number] [place] [address]- 1808 May, [facility] [place] [facility] [address] [id number] [place] [address]- 1131 May, [facility] [place] [facility] [address] [id number] [place] [address]- 7571 May, [facility] [place] [facility] [address] [id number] [place] [address]- 8190 Apr, [facility] [place] [facility] [address] [id number] [place] [address]- 7092 Apr, [facility] [place] [facility] [address] [id number] [place] [address]- 1326 Apr, [facility] [place] [facility] [address] [id number] [place] [address]- 9957 Apr, [facility] [place] [facility] [address] [id number] [place] [address]- 7314 Apr, [facility] [place] [facility] [address] [id number] [place] [address]- 1782 Apr, [facility] [place] [facility] [address] [id number] [place] [address]- 3437 March, [facility] [place] [facility] [address] [id number] [place] [address]- 3340 March, [facility] [place] [facility] [address] [id number] [place] [address]- 7420 March, [facility] [place] [facility] [address] [id number] [place] [address]- 0162 March, [facility] [place] [facility] [address] [id number] [place] [address]- 8747 Feb, [facility] [place] [facility] [address] [id number] [place] [address]- 6744 Feb, [facility] [place] [facility] [address] [id number] [place] [address]- 8025 Feb, [facility] [place] [facility] [address] [id number] [place] [address]- 7607 Feb, [facility] [place] [facility] [address] [id number] [place] [address]- 1507 Feb, [facility] [place] [facility] [address] [id number] [place] [address]- 1285 Feb, [facility] [place] [facility] [address] [id number] [place] [address]- 4033 Feb, [facility] [place] [facility] [address] [id number] [place] [address] Feb, [facility] [place] [facility] [address] [id number] [place] [address] Feb, [facility] [place] [facility] [address] [id number] [place] [address] Feb, [facility] [place] [facility] [address] [id number] [place] [address] Feb, [facility] [place] [facility] [address] [id number] [place] [address] Feb, [facility] [place] [facility] [address] [id number] [place] [address] Feb, [facility] [place] [facility] [address] [id number] [place] [address] Feb, [facility] [place] [facility] [address] [id number] [place] [address] Feb, [facility] [place] [facility] [address] [id number] [place] [address] Feb, [facility] [place] [facility] [address] [id number] [place] [address] Jan, [facility] [place] [facility] [address] [id number] [place] [address] Jan, [facility] [place] [facility] [address] [id number] [place] [address] Dec, [facility] [place] [facility] [address] [id number] [place] [address] Dec, [facility] [place] [facility] [address] [id number] [place] [address] Dec, [facility] [place] [facility] [address] [facility] [id number] [place] [address] Dec, [facility] [place] [facility] [address] [id number] [place] [address] Dec, [facility] [place] [facility] [address] [id number] [place] [address] Dec, [facility] [place] [facility] [address] [id number] [place] [address] Dec, [facility] [place] [facility] [address] [id number] [place] [address] Nov, [facility] [place] [facility] [address] [id number] [place] [address] Nov, [facility] [place] [facility] [address] [id number] [place] [address] Nov, [facility] [place] [facility] [address] [id number] [place] [address] Nov, [facility] [place] [facility] [address] [id number] [place] [address] Oct, [facility] [place] [facility] [address] [id number] [place] [address] Oct, [facility] [place] [facility] [address] [id number] [place] [address] Sep, [facility] [place] [facility] [address] [id number] [place] [address] Sep, [facility] [place] [facility] [address] [id number] [place] [address] Aug, [facility] [place] [facility] [address] [id number] [place] [address]- [address] Aug, [facility] [place] [facility] [address] [id number] [place] [address] Aug, [facility] [place] [facility] [address] [id number] [place] [address] Aug, [facility] [place] [facility] [address] [id number] [place] [address] Aug, [facility] [place] [facility] [address] [id number] [place] [address] Aug, [facility] [place] [facility] [address] [id number] [place] [address] Aug, [facility] [place] [facility] [address] [id number] [place] [address] Aug, [facility] [place] [facility] [address] [id number] [place] [address] Aug, [facility] [place] [facility] [address] [id number] [place] [address] Aug, [facility] [place] [facility] [address] [id number] [place] [address] Jun, [facility] [place] [facility] [address] [id number] [place] [address] Jun, [facility] [place] [facility] [address] [id number] [place] [address] May, [facility] [place] [facility] [address] [id number] [place] [address] Apr, [facility] [place] [facility] [address] [id number] [place] [address] Apr, [facility] [place] [facility] [address] [id number] [place] [address] March, [facility] [place] [facility] [address] [id number] [place] [address] Feb, [facility] [place] [facility] [address] [id number] [place] [address] Jan, [facility] [place] [facility] [address] [id number] [place] [address] Jan, [facility] [place] [facility] [address] [id number] [place] [address] Dec, [facility] [place] [facility] [address] [id number] [place] [address] Dec, [facility] [address] [id number] [place] [address] Nov, [facility] [address] [id number] [place] [address] Jul, [facility] [address] [id number] [place] [address] Jul, [facility] [address] [id number] [place] [address] Jun, [facility] [address] [id number] [place] [address] May, [facility] [address] [id number] [place] [address] May, [facility] [address] [id number] [place] [address] May, [facility] [address] [id number] [place] [address] May, [facility] [address] [id number] [place] [address] May, [facility] [address] [id number] [place] [address] May, [facility] [address] [id number] [place] [address] May, [facility] [address] [id number] [place] [address] Apr, [facility] [place] [facility] [address] [id number] [place] [address] Apr, [facility] [address] [id number] [place] [address] Apr, [facility] [address] [id number] [place] [address] Apr, IMMUNIZATIONS No Known Immunizations SOCIAL HISTORY Never Assessed REASON FOR VISIT Lab (walk-in) PLAN OF CARE VITAL SIGNS MEDICATIONS Unknown Medications RESULTS No Results PROCEDURES Procedure Date Ordered Result Body Site LAB NOT BILLED BY [facility] May 14, 2018 INSTRUCTIONS MEDICATIONS ADMINISTERED No Known Medications MEDICAL (GENERAL) HISTORY Type Description Date Medical History hypogonadism Medical History hyperlipidemia Medical History pre-diabetic Medical History chronic pain Medical History COPD Surgical History skin cancer 1999 Hospitalization History surgery Hospitalization History MRSA infection 05/2015
--- OUTSIDE RECORDS SUMMARY | 2018-10-30 16:48 | XMS REPORT ---
Author Author JOSÉ LUIS RODRÍGUEZ Organization [facility] Address [address] [place] [address] Care Team Providers Care Inspector Final Assembly Mechanical Name Role Phone JOSÉ LUIS RODRÍGUEZ Unavailable PROBLEMS Type Condition ICD9-CM Code TIO14-AE Code Onset Dates Condition Status SNOMED Code Problem Hypertriglyceridemia E78.1 Active 831351880 Problem 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 Active 29770521 Problem Family history of diabetes mellitus Z83.3 Active 324484219 Problem History of MRSA infection Z86.14 Active 672403170 Problem Chronic pain G89.29 Active 68198046 Problem Dysthymia F34.1 Active 53839854 Problem Insomnia, unspecified type G47.00 Active 539847750 Problem Chronic obstructive pulmonary disease, unspecified COPD type J44.9 Active 79142711 Problem Osteoarthritis M19.90 Active 975161156 Problem Primary insomnia F51.01 Active 8652073 Problem Essential hypertension I10 Active 79884898 ALLERGIES No Known Allergies ENCOUNTERS Encounter Location Date Diagnosis [facility] [id number] [place] [address] 39732- 3895 Jul, [place] [id number] [place] [address] 10873- 7310 Jun, Chronic pain G89.29 and Insomnia, unspecified type G47.00 [place] [id number] [place] [address] 29657- 4350 Jun, Seborrheic keratoses L82.[address] 73149- 2436 May, Dysthymia F34.1 ; Chronic obstructive pulmonary disease, unspecified COPD type J44.9 ; Chronic pain G89.29 ; Insomnia, unspecified type G47.00 ; BMI 40.0-44.9, adult Z68.41 and Other seborrheic keratosis L82.1 [place] [id number] [place] [address] 55865- 4674 May, Chronic pain G89.29 and Insomnia, unspecified type G47.00 [place] [facility] [id number] [place] [address] 90354- 8912 Apr, Hypertriglyceridemia E78.1 [place] [id number] [place] [address] 70004- 3210 Apr, Chronic pain G89.29 and Insomnia, unspecified type G47.00 [place] [id number] [place] [address] 66427- 5822 15 Apr, 2018 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 ; Hypertriglyceridemia E78.1 and Fatigue, unspecified type R53.83 [facility] [id number] [place] [address] 24283- 2697 Apr, 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 ; Chronic pain G89.29 ; Primary insomnia F51.01 ; Chronic obstructive pulmonary disease, unspecified COPD type J44.9 ; Dysthymia F34.1 ; Hypertriglyceridemia E78.1 ; Fatigue, unspecified type R53.83 and Rash R21 [facility] [id number] [place] [address] 37473- 3868 March, Chronic pain G89.29 and Insomnia, unspecified type G47.00 [place] [facility] [id number] [place] [address] 24941- 9653 March, Insomnia, unspecified type G47.00 [place] [id number] [place] [address] 83429- 2856 Feb, Chronic pain G89.29 [place] [id number] [place] [address] 52926- 5909 Feb, Chronic pain G89.29 [facility] [id number] [place] [address] 22820- 4151 Jan, Chronic pain G89.29 [facility] [id number] [address] 3648 Dec, Chronic pain G89.29 [facility] [id number] [place] [address] 72108- 3899 Nov, Chronic pain G89.29 and Insomnia, unspecified type G47.00 [facility] [id number] [place] [address] 96253- 7459 Oct, Insomnia, unspecified type G47.00 ; Chronic pain G89.29 and Colon cancer screening Z12.11 [facility] [id number] [place] [address] 10856- 4537 Oct, Chronic pain G89.29 [place] [id number] [place] [address] 51743- 8411 Sep, Chronic pain G89.29 and Insomnia, unspecified type G47.00 [facility] [id number] [place] [address] 76221- 2274 Sep, Chronic pain G89.29 [facility] [id number] [place] [address] 15926- 7649 Sep, [place] [id number] [place] [address] 51892- 4826 Aug, Medicare welcome exam Z00.00 ; Encounter for immunization Z23 ; Colon cancer screening Z12.11 and Encounter for screening for lung cancer Z12.2 [place] [id number] [place] [address] 82266- 5953 Aug, [place] [id number] [place] [address] 72228- 9564 Aug, Chronic pain G89.29 and Insomnia, unspecified type G47.00 [facility] [id number] [place] [address] 75460- 8927 Aug, Hypertriglyceridemia E78.1 [facility] [id number] [place] [address] 09452- 2704 Jul, Chronic pain G89.29 and Insomnia, unspecified type G47.00 [facility] [address] 68123- 6652 Jun, Hypertriglyceridemia E78.1 [facility] [address] 96712- 7644 Jun, Chronic pain G89.29 and Insomnia, unspecified type G47.00 [facility] [address] 93925- 2254 Jun, [facility] [address] 18107- 1927 Jun, [facility] [address] 70433- 3489 May, 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 ; Chronic pain G89.29 ; Insomnia, unspecified type G47.00 and Rash R21 [facility] [address] 47499- 7868 May, Chronic pain G89.29 [facility] [address] 92373- 7726 May, Hypertriglyceridemia E78.1 [facility] [address] 67186- 8546 Apr, Chronic pain G89.29 [facility] [address] 33516- 6985 Apr, Chronic pain G89.29 ; 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 ; Hypertriglyceridemia E78.1 and Primary insomnia F51.01 [facility] [address] 73385- 9580 March, Chronic pain G89.29 [facility] [address] 66614- 9296 March, Chronic pain G89.29 [facility] [address] 96635- 3240 Feb, [facility] [id number] [place] [address] 97905- 3595 Feb, Chronic pain G89.29 [facility] [id number] [place] [address] 61805- 1269 Jan, Chronic pain G89.29 [facility] [id number] [place] [address] 57223- 5058 Dec, Chronic pain G89.29 [facility] [id number] [place] [address] 31249- 6291 Dec, [facility] [address] 64066- 1932 Nov, Hypertriglyceridemia E78.1 [facility] [id number] [place] [address] 87964- 2341 Nov, [facility] [address] 73989- 6148 Nov, Chronic pain G89.29 ; Hypertriglyceridemia E78.1 and Chronic obstructive pulmonary disease, unspecified COPD type J44.9 [facility] [id number] [place] [address] 38743- 4752 Nov, Chronic pain G89.29 [facility] [id number] [place] [address] 97349- 7885 Oct, Chronic pain G89.29 [facility] [id number] [place] [address] 44629- 5098 05 Oct, 2016 [facility] [id number] [place] [address] 65043- 7557 29 Sep, 2016 Chronic obstructive pulmonary disease, unspecified COPD type J44.9 and Abscess L02.91 [facility] [id number] [place] [address] 50681- 8606 16 Sep, 2016 Chronic pain G89.29 [facility] [address] [place] [address]- 3994 Aug, Chronic pain G89.29 [facility] [id number] [place] [address] 98345- 3613 Aug, Chronic pain G89.29 [facility] [id number] [place] [address] 14179- 7453 Aug, Cutaneous horn L85.8 and Skin tag L91.8 [facility] [address] 18390- 3009 Jul, [facility] [address] 91821- 8475 Jul, Hypertriglyceridemia E78.1 [facility] [id number] [place] [address] 15136- 6236 Jul, Other chronic pain G89.29 ; Essential hypertension I10 ; 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 ; Hyperlipidemia, unspecified hyperlipidemia type E78.5 and Cutaneous horn L85.8 [facility] [id number] [place] [address] 94373- 5525 Jun, Chronic pain G89.29 [facility] [address] 54478- 3133 May, Chronic pain G89.29 [facility] [id number] [place] [address] 52804- 5351 May, [facility] [id number] [place] [address] 90859- 3175 May, Skin infection L08.9 [facility] [id number] [place] [address] 29580- 5173 Apr, Chronic pain G89.29 [facility] [id number] [place] [address] 89140- 4672 Apr, [facility] [id number] [place] [address] 11473- 7814 Apr, Chronic pain G89.29 [place] [id number] [address]- 8846 March, [facility] [id number] [place] [address] 75362- 3950 Feb, Chronic pain G89.29 ; 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 and Hypertriglyceridemia E78.1 [facility] [id number] [place] [address] 94535- 3203 Feb, [facility] [id number] [place] [address] 57864- 6355 Jan, [facility] [id number] [place] [address] 83918- 7139 Dec, [facility] [id number] [place] [address] 30793- 6696 14 Nov, 2015 [facility] [id number] [place] [address] 05644- 9127 Oct, [facility] [id number] [place] [address] 53470- 9383 Oct, 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 [facility] [id number] [place] [address] 23344- 1246 Oct, Other chronic pain G89.29 ; Chronic obstructive pulmonary disease, unspecified COPD type J44.9 ; Insomnia, unspecified type G47.00 ; 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 and Essential hypertension I10 [facility] [id number] [place] [address] 84403- 6719 Sep, [facility] [id number] [place] [address] 76726- 6662 Aug, [facility] [id number] [place] [address] 03823- 5904 30 Jul, 2015 [facility] [id number] [place] [address] 44360- 3795 14 Jul, 2015 [facility] [id number] [place] [address] 62239- 2335 Jul, Overweight 278.02 and Hyperinsulinemia 251.1 [facility] [address] 95999- 5657 Jul, [facility] [address] 38216- 4941 Jun, Skin tags, multiple acquired 701.9 [facility] [address] 81727- 9897 Jun, Other chronic pain 338.29 ; Erectile dysfunction 607.84 ; Hyperinsulinemia 251.1 and Hypertension 401.9 [facility] [address] 64375- 8990 Jun, [facility] [address] 64933- 3254 Jun, [facility] [address] 15326- 4807 Jun, [facility] [address] 95450- 9980 May, Pure hyperglyceridemia 272.1 [facility] [address] 00668- 1739 May, Pure hyperglyceridemia 272.1 [facility] [address] 03689- 1704 May, [facility] [address] 11028- 7497 May, Overgrown toenails 703.8 ; Seborrheic keratosis 702.19 ; Skin tag 701.9 ; Warts, genital 078.11 ; Cramps, extremity 729.82 ; Increased appetite 783.6 and Heat rash 705.1 [facility] [id number] [place] [address] 90212- 0024 May, [facility] [address] 90329- 1596 Apr, [facility] [place] [facility] [address] [id number] [place] [address]- 9695 08 Apr, 2015 [facility] [place] [facility] [address] [id number] [place] [address]- 3039 March, [facility] [place] [facility] [address] [id number] [place] [address]- 4567 14 Feb, 2015 [facility] [place] [facility] [address] [id number] [place] [address]- 9769 Feb, [facility] [place] [facility] [address] [id number] [place] [address]- 8447 27 Jan, 2015 [facility] [place] [facility] [address] [id number] [place] [address]- 0473 27 Jan, 2015 [facility] [place] [facility] [address] [id number] [place] [address]- 1585 27 Jan, 2015 [facility] [place] [facility] [address] [id number] [place] [address]- 9424 27 Jan, 2015 [facility] [place] [facility] [address] [id number] [place] [address]- 6702 19 Jan, 2015 [facility] [place] [facility] [address] [id number] [place] [address]- 5721 19 Jan, 2015 [facility] [place] [facility] [address] [id number] [place] [address]- 2319 16 Jan, 2015 [facility] [place] [facility] [address] [id number] [address]- 8951 16 Jan, 2015 [facility] [place] [facility] [address] [id number] [place] [address]- 4527 10 Jan, 2015 [facility] [place] [facility] [address] [id number] [place] [address]- 9760 10 Jan, 2015 [facility] [place] [facility] [address] [id number] [place] [address]- 8067 05 Jan, 2015 [facility] [place] [facility] [address] [id number] [place] [address]- 7626 Jan, [facility] [place] [facility] [address] [id number] [place] [address]- 9206 Dec, 2014 [facility] [place] [facility] [address] [id number] [place] [address]- 2546 Dec, 2014 [facility] [place] [facility] [address] [id number] [place] [address]- 9606 Dec, 2014 [facility] [place] [facility] [address] [id number] [place] [address]- 2549 Dec, 2014 [facility] [place] [facility] [address] [id number] [place] [address]- 5206 Dec, 2014 [facility] [place] [facility] [address] [facility] [id number] [place] [address]- 2686 Dec, 2014 [facility] [place] [facility] [address] [id number] [place] [address]- 2879 Dec, 2014 [facility] [place] [facility] [address] [id number] [place] [address]- 0991 Dec, [facility] [place] [facility] [address] [facility] [id number] [place] [address]- 1040 Nov, [facility] [place] [facility] [address] [facility] [id number] [place] [address]- 6015 Nov, [facility] [place] [facility] [address] [facility] [id number] [place] [address]- 2547 Nov, [facility] [place] [facility] [address] [id number] [place] [address]- 0084 Nov, [facility] [place] [facility] [address] [id number] [place] [address]- 2546 Nov, [facility] [place] [facility] [address] [facility] [id number] [place] [address]- 2544 13 Nov, 2014 [facility] [place] [facility] [address] [id number], [place] [address]- 7449 Nov, [facility] [place] [facility] [address] [id number] [place] [address]- 3073 Nov, [facility] [place] [facility] [address] [id number] [place] [address]- 5152 Oct, [facility] [place] [facility] [address] [facility] [id number] [place] [address]- 8253 Oct, [facility] [place] [facility] [address] [id number] [place] [address]- 1420 Sep, [facility] [place] [facility] [address] [id number] [place] [address]- 0332 Sep, [facility] [place] [facility] [address] [id number] [place] [address]- 3901 Sep, [facility] [place] [facility] [address] [id number] [place] [address]- 5239 Sep, [facility] [place] [facility] [address] [id number], [place] [address]- 4556 Aug, [facility] [place] [facility] [address] [id number], [place] [address]- 8204 Aug, [facility] [place] [facility] [address] [id number], [place] [address]- 3309 Aug, [facility] [place] [facility] [address] [id number], [place] [address]- 9465 Aug, [facility] [place] [facility] [address] [id number], [place] [address]- 6447 Aug, [facility] [place] [facility] [address] [id number], [place] [address]- 6393 Aug, [facility] [place] [facility] [address] [id number], [place] [address]- 8730 Aug, [facility] [place] [facility] [address] [id number], [place] [address]- 5109 Aug, [facility] [place] [facility] [address] [id number] [place] [address]- 0844 Jul, [facility] [place] [facility] [address] [id number] [place] [address]- 7586 Jul, [facility] [place] [facility] [address] [id number] [place] [address]- 7266 Jul, [facility] [place] [facility] [address] [id number] [place] [address]- 0408 Jul, [facility] [place] [facility] [address] [id number] [place] [address]- 6171 Jul, [facility] [place] [facility] [address] [id number] [place] [address]- 3202 Jun, [facility] [place] [facility] [address] [id number] [place] [address]- 7649 Jun, [facility] [place] [facility] [address] [id number] [place] [address]- 2319 Jun, [facility] [place] [facility] [address] [id number] [place] [address]- 9003 Jun, [facility] [place] [facility] [address] [id number] [place] [address]- 5493 Jun, [facility] [place] [facility] [address] [id number] [place] [address]- 0001 Jun, [facility] [place] [facility] [address] [id number] [place] [address]- 9608 May, [facility] [place] [facility] [address] [id number] [place] [address]- 4695 May, [facility] [place] [facility] [address] [id number] [place] [address]- 0434 May, [facility] [place] [facility] [address] [id number] [place] [address]- 0565 May, [facility] [place] [facility] [address] [id number] [place] [address]- 1901 Apr, [facility] [place] [facility] [address] [id number] [place] [address]- 1346 Apr, [facility] [place] [facility] [address] [id number] [place] [address]- 8252 Apr, [facility] [place] [facility] [address] [id number] [place] [address]- 2743 Apr, [facility] [place] [facility] [address] [id number] [place] [address]- 7473 Apr, [facility] [place] [facility] [address] [id number] [place] [address]- 2154 Apr, [facility] [place] [facility] [address] [id number] [place] [address]- 9932 March, [facility] [place] [facility] [address] [id number] [place] [address]- 9184 March, [facility] [place] [facility] [address] [id number] [place] [address]- 8491 March, [facility] [place] [facility] [address] [id number] [place] [address]- 9816 March, [facility] [place] [facility] [address] [id number] [place] [address]- 3831 Feb, [facility] [place] [facility] [address] [id number] [place] [address]- 0836 Feb, [facility] [place] [facility] [address] [id number] [place] [address]- 9056 Feb, [facility] [place] [facility] [address] [id number] [place] [address]- 3069 Feb, [facility] [place] [facility] [address] [id number] [place] [address]- 7032 Feb, [facility] [place] [facility] [address] [id number] [place] [address]- 2289 Feb, [facility] [place] [facility] [address] [id number] [place] [address]- 8768 Feb, [facility] [place] [facility] [address] [id number] [place] [address]- 1862 Feb, [facility] [place] [facility] [address] [id number] [place] [address]- 3159 Feb, [facility] [place] [facility] [address] [id number] [place] [address]- 9366 Feb, [facility] [place] [facility] [address] [id number] [place] [address]- 9537 Feb, [facility] [place] [facility] [address] [id number] [place] [address]- 5907 Feb, [facility] [place] [facility] [address] [id number] [place] [address]- 0006 Feb, [facility] [place] [facility] [address] [id number] [place] [address]- 5841 Feb, [facility] [place] [facility] [address] [id number] [place] [address]- 5157 Feb, [facility] [place] [facility] [address] [id number] [place] [address] Feb, [facility] [place] [facility] [address] [id number] [place] [address] Jan, [facility] [place] [facility] [address] [id number] [place] [address] Jan, [facility] [place] [facility] [address] [id number] [place] [address] Dec, [facility] [place] [facility] [address] [id number] [place] [address] Dec, [facility] [place] [facility] [address] [id number] [place] [address] Dec, [facility] [place] [facility] [address] [id number] [place] [address] Dec, [facility] [place] [facility] [address] [id number] [place] [address] Dec, [facility] [place] [facility] [address] [id number] [place] [address] Dec, [facility] [place] [facility] [address] [id number] [place] [address] Dec, [facility] [place] [facility] [address] [id number] [place] [address] Nov, [facility] [place] [facility] [address] [id number] [place] [address] Nov, [facility] [place] [facility] [address] [id number] [place] [address] Nov, [facility] [place] [facility] [address] [id number] [place] [address] Nov, [facility] [place] [facility] [address] [id number] [place] [address] Oct, [facility] [place] [facility] [address] [id number] [place] [address] Oct, [facility] [place] [facility] [address] [id number] [place] [address] Sep, [facility] [place] [facility] [address] [id number] [place] [address] Sep, [facility] [place] [facility] [address] [id number] [address] Aug, [facility] [place] [facility] [address] [id number] [place] [address] Aug, [facility] [place] [facility] [address] [id number] [place] [address] Aug, [facility] [place] [facility] [address] [id number] [place] [address] Aug, [facility] [place] [facility] [address] [id number] [place] [address] Aug, [facility] [place] [facility] [address] [id number] [place] [address] Aug, [facility] [place] [facility] [address] [id number] [place] [address]609 Aug, [facility] [place] [facility] [address] [id number] [place] [address] Aug, [facility] [place] [facility] [address] [id number] [place] [address] Aug, [facility] [place] [facility] [address] [id number] [place] [address] Aug, [facility] [place] [facility] [address] [id number] [place] [address] Jun, [facility] [place] [facility] [address] [id number] [place] [address] Jun, [facility] [place] [facility] [address] [id number] [place] [address] May, [facility] [place] [facility] [address] [id number] [place] [address]68 Apr, [facility] [place] [facility] [address] [id number] [place] [address] Apr, [facility] [place] [facility] [address] [id number] [place] [address] March, [facility] [place] [facility] [address] [id number] [place] [address] Feb, [facility] [place] [facility] [address] [id number] [place] [address] Jan, [facility] [place] [facility] [address] [id number] [place] [address] 47[address] Jan, [facility] [place] [facility] [address] [id number] [place] [address]479 Dec, [facility] [place] [facility] [address] [id number] [place] [address] Dec, [facility] [address] [id number] [place] [address] Nov, [facility] [place] [facility] [address] [id number] [place] [address] Jul, [facility] [address] [id number] [place] [address] Jul, [facility] [place] [facility] [address] [id number] [place] [address] Jun, [facility] [address] [id number] [place] [address] May, [facility] [place] [facility] [address] [id number] [place] [address] May, [facility] [address] [id number] [place] [id number] May, [facility] [address] [id number] [place] [address] May, [facility] [place] [facility] [address] [id number] [place] [address] May, [facility] [address] [id number] [place] [address] May, [facility] [place] [facility] [address] [id number] [place] [address] May, [facility] [place] [facility] [address] [id number] [place] [address] Apr, [facility] [place] [facility] [address] [id number] [place] [address] Apr, [facility] [place] [facility] [address] [id number] [place] [address] Apr, [facility] [place] [facility] [address] [id number] [place] [address] Apr, IMMUNIZATIONS No Known Immunizations SOCIAL HISTORY Never Assessed REASON FOR VISIT Jaret WHITTAKER PLAN OF CARE Activity Details Follow Up 4 Weeks Reason:depression VITAL SIGNS Height 66 in 2018-05-12 Weight 245.5 lbs 2018-05-12 Temperature 97.7 degrees Fahrenheit 2018-05-12 Heart Rate 75 bpm 2018-05-12 Respiratory Rate 22 2018-05-12 Oximetry on room air:93 % 2018-05-12 BMI 39.62 kg/m2 2018-05-12 Blood pressure systolic 148 mmHg 2018-05-12 Blood pressure diastolic 88 mmHg 2018-05-12 MEDICATIONS Medication Instructions Dosage Frequency Start Date End Date Duration Status Hydrocodone-Acetaminophen 10-325 MG Orally 4 times a day 1 tablet as needed for pain 6h March, 28 days Active Symbicort 160-4.5 MCG/ACT INHALE TWO PUFFS BY MOUTH TWICE DAILY IN THE MORNING AND EVENING Active Escitalopram Oxalate 10 mg Orally Once a day 1 tablet 24h Apr, 30 day(s) Active Oxygen N/A 1 1/2 l at hs Once a day as directed 24h 17 Oct, 2015 Active Ventolin HFA 108 (90 Base) MCG/ACT Inhalation every 6 hrs 2 puffs as needed 6h Apr, Active Viagra 100 MG Orally Once a day prn 1 tablet as needed 10 Active Ambien 10 MG Orally Once a day 1 tablet at bedtime 24h May, 28 days Active RESULTS No Results PROCEDURES Procedure Date Ordered Result Body Site GLYCATED HEMOGLOBIN TEST May 12, 2018 INSTRUCTIONS MEDICATIONS ADMINISTERED No Known Medications MEDICAL (GENERAL) HISTORY Type Description Date Medical History hypogonadism Medical History hyperlipidemia Medical History pre-diabetic Medical History chronic pain Medical History COPD Surgical History skin cancer 1999 Hospitalization History surgery Hospitalization History MRSA infection 05/2015
--- OUTSIDE RECORDS SUMMARY | 2018-10-30 16:49 | XMS REPORT ---
Author Author JOSÉ LUIS RODRÍGUEZ [facility] Address [address] [place] [address] Care Team Providers Care Nba Player Name Role Phone JOSÉ LUIS RODRÍGUEZ Unavailable PROBLEMS Type Condition ICD9-CM Code ZLB84-GV Code Onset Dates Condition Status SNOMED Code Problem Hypertriglyceridemia E78.1 Active 548704287 Problem 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 Active 05835166 Problem Family history of diabetes mellitus Z83.3 Active 699806720 Problem History of MRSA infection Z86.14 Active 101712536 Problem Chronic pain G89.29 Active 45835892 Problem Dysthymia F34.1 Active 71034983 Problem Insomnia, unspecified type G47.00 Active 396749945 Problem Chronic obstructive pulmonary disease, unspecified COPD type J44.9 Active 07317033 Problem Osteoarthritis M19.90 Active 151893928 Problem Primary insomnia F51.01 Active 6353292 Problem Essential hypertension I10 Active 95904173 ALLERGIES No Information ENCOUNTERS Encounter Location Date Diagnosis [place] [id number] [place] [address] 43320- 6229 Jun, [place] [id number] [place] [address] 43389- 1193 May, Dysthymia F34.1 ; Chronic obstructive pulmonary disease, unspecified COPD type J44.9 ; Chronic pain G89.29 ; Insomnia, unspecified type G47.00 ; BMI 40.0-44.9, adult Z68.41 and Other seborrheic keratosis L82.1 [place] [id number] [place] [address] 37578- 3299 May, Chronic pain G89.29 and Insomnia, unspecified type G47.00 [place] [id number] [place] [address] 29398- 3154 Apr, Hypertriglyceridemia E78.1 [place] [address] [place] [id number] [place] [address] 05272- 5887 Apr, Chronic pain G89.29 and Insomnia, unspecified type G47.00 [place] [address] [place] [id number] [place] [address] 00153- 6927 15 Apr, 2018 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 ; Hypertriglyceridemia E78.1 and Fatigue, unspecified type R53.83 [place] [address] [place] [id number] [place] [address] 16702- 6796 13 Apr, 2018 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 ; Chronic pain G89.29 ; Primary insomnia F51.01 ; Chronic obstructive pulmonary disease, unspecified COPD type J44.9 ; Dysthymia F34.1 ; Hypertriglyceridemia E78.1 ; Fatigue, unspecified type R53.83 and Rash R21 [place] [address] [place] [id number] [place] [address] 28935- 0843 March, Chronic pain G89.29 and Insomnia, unspecified type G47.00 [place] [address] [place] [id number] [place] [address] 61269- 5695 March, Insomnia, unspecified type G47.00 [place] [address] [place] [id number] [place] [address] 71735- 9984 Feb, Chronic pain G89.29 [place] [address] [place] [id number] [place] [address] 91734- 9708 Feb, Chronic pain G89.29 [place] [address] [place] [id number] [place] [address] 32800- 3019 Jan, Chronic pain G89.29 [place] [address] [place] [id number] [place] [address] 79672- 0184 Dec, Chronic pain G89.29 [place] [id number] [place] [address] 56241- 6021 Nov, Chronic pain G89.29 and Insomnia, unspecified type G47.00 [place] [address] [place] [id number] [address]- 6784 Oct, Insomnia, unspecified type G47.00 ; Chronic pain G89.29 and Colon cancer screening Z12.11 [facility] [address] [address]- 6542 Oct, Chronic pain G89.29 [facility] [id number] [place] [address] 75709- 8542 Sep, Chronic pain G89.29 and Insomnia, unspecified type G47.00 [facility] [address] [address]- 4217 Sep, Chronic pain G89.29 [facility] [address] [place] [id number] [place] [address] 00572- 2079 Sep, [facility] [address] [place] [id number] [place] [address] 38466- 8830 Aug, Medicare welcome exam Z00.00 ; Encounter for immunization Z23 ; Colon cancer screening Z12.11 and Encounter for screening for lung cancer Z12.2 [place] [id number] [place] [address] 26422- 5012 Aug, [facility] [id number] [place] [address] 55880- 2335 Aug, Chronic pain G89.29 and Insomnia, unspecified type G47.00 [facility] [address] [address]- 3462 Aug, Hypertriglyceridemia E78.1 [facility] [address] [address]- 4656 Jul, Chronic pain G89.29 and Insomnia, unspecified type G47.00 [facility] [address] [address]- 6888 Jun, Hypertriglyceridemia E78.1 [facility] [address] [address]- 2158 Jun, Chronic pain G89.29 and Insomnia, unspecified type G47.00 [facility] [address] [place] [id number] [place] [address] 55712- 7278 Jun, [facility] [address] [place] [id number] [place] [address] 94478- 9741 Jun, [facility] [address] [place] [id number] [place] [address] 24855- 1011 May, 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 ; Chronic pain G89.29 ; Insomnia, unspecified type G47.00 and Rash R21 [facility] [address] [place] [id number] [place] [address] 42768- 1689 May, Chronic pain G89.29 [facility] [address] [place] [id number] [place] [address] 43483- 5911 May, Hypertriglyceridemia E78.1 [facility] [address] 04270- 5035 Apr, Chronic pain G89.29 [facility] [address] [place] [id number] [place] [address] 82980- 3275 Apr, Chronic pain G89.29 ; 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 ; Hypertriglyceridemia E78.1 and Primary insomnia F51.01 [facility] [address] [place] [id number] [place] [address] 59825- 7853 March, Chronic pain G89.29 [facility] [address] [place] [id number] [place] [address] 63370- 2788 March, Chronic pain G89.29 [facility] [address] [place] [id number] [place] [address] 64607- 1281 Feb, [facility] [address] [place] [id number] [place] [address] 25054- 1722 Feb, Chronic pain G89.29 [facility] [id number] [place] [address] 00751- 8069 Jan, Chronic pain G89.29 [facility] [id number] [place] [address] 25923- 6380 07 Dec, 2016 Chronic pain G89.29 [facility] [address] [place] [id number] [place] [address] 74122 2546 Dec, [facility] [address] [place] [id number] [place] [address] 74442 2546 Nov, Hypertriglyceridemia E78.1 [facility] [address] [place] [id number] [place] [address] 79162 2546 Nov, [facility] [address] [place] [id number] [place] [address] 38735- 3466 Nov, Chronic pain G89.29 ; Hypertriglyceridemia E78.1 and Chronic obstructive pulmonary disease, unspecified COPD type J44.9 [facility] [address] [place] [id number] [place] [address] 13743- 6736 Nov, Chronic pain G89.29 [facility] [address] [place] [id number] [place] [address] 77609 254 Oct, Chronic pain G89.29 [facility] [address] [place] [id number] [place] [address] 51716 2546 Oct, [facility] [address] [place] [id number] [place] [address] 18210- 1952 Sep, Chronic obstructive pulmonary disease, unspecified COPD type J44.9 and Abscess L02.91 [facility] [address] [place] [id number] [place] [address] 35132- 6879 Sep, Chronic pain G89.29 [facility] [id number] [place] [address] 79587 2546 Aug, Chronic pain G89.29 [facility] [address] [place] [id number] [place] [address] 30656 2546 Aug, Chronic pain G89.29 [facility] [address] [place] [id number] [place] [address] 34998 2546 Aug, Cutaneous horn L85.8 and Skin tag L91.8 [facility] [address] [place] [id number] [place] [address] 55641- 9109 Jul, [facility] [address] [place] [id number] [place] [address] 51256- 9766 Jul, Hypertriglyceridemia E78.1 [facility] [address] 83930- 2281 07 Jul, 2016 Other chronic pain G89.29 ; Essential hypertension I10 ; 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 ; Hyperlipidemia, unspecified hyperlipidemia type E78.5 and Cutaneous horn L85.8 [facility] [address] 00670- 0753 Jun, Chronic pain G89.29 [facility] [address] [place] [id number] [place] [address] 83429- 2895 May, Chronic pain G89.29 [facility] [address] 89944- 4951 May, [facility] [address] [place] [id number] [place] [address] 35275- 7470 May, Skin infection L08.9 [facility] [address] [place] [id number] [place] [address] 68790- 5821 Apr, Chronic pain G89.29 [facility] [address] [place] [id number] [place] [address] 91723- 7611 Apr, [facility] [address] [place] [address] [id number] [place] [address] 03329- 2545 Apr, Chronic pain G89.29 [facility] [address] 43958- 3025 March, [facility] [address] [place] [id number] [place] [address] 36950- 3639 Feb, Chronic pain G89.29 ; 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 and Hypertriglyceridemia E78.1 [facility] [address] [place] [address]- 1069 07 Feb, 2016 [facility] [address] [place] [id number] [place] [address] 14858- 1507 Jan, [facility] [address] [place] [id number] [place] [address] 55726- 8853 Dec, [facility] [address] [place] [id number] [place] [address] 89365- 8608 Nov, [facility] [address] [place] [id number] [place] [address] 36520- 6400 Oct, [facility] [address] [place] [id number] [place] [address] 40058- 8902 Oct, 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 [facility] [address] [place] [id number] [place] [address] 57638- 0882 Oct, Other chronic pain G89.29 ; Chronic obstructive pulmonary disease, unspecified COPD type J44.9 ; Insomnia, unspecified type G47.00 ; 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 and Essential hypertension I10 [facility] [address] [place] [id number] [place] [address] 59865- 0971 Sep, [facility] [address] [place] [id number] [place] [address] 54276- 9086 Aug, [facility] [address] [place] [id number] [place] [address] 39554- 6434 30 Jul, 2015 [facility] [address] [place] [id number] [place] [address] 36974- 1065 14 Jul, 2015 [facility] [address] [place] [id number] [place] [address] 98256- 7448 14 Jul, 2015 Overweight 278.02 and Hyperinsulinemia 251.1 [facility] [address] [place] [id number] [place] [address] 12938- 6587 03 Jul, 2015 [facility] [address] [place] [id number] [place] [address] 58747- 7583 Jun, Skin tags, multiple acquired 701.9 [facility] [address] [place] [id number] [place] [address] 50965- 6995 Jun, Other chronic pain 338.29 ; Erectile dysfunction 607.84 ; Hyperinsulinemia 251.1 and Hypertension 401.9 [facility] [address] [place] [id number] [place] [address] 50260- 1401 Jun, [facility] [address] 85577- 6086 Jun, [facility] [address] [place] [id number] [place] [address] 70386- 2171 Jun, [facility] [address] 23220- 6666 May, Pure hyperglyceridemia 272.1 [facility] [address] 81343- 8947 May, Pure hyperglyceridemia 272.1 [facility] [address] [place] [id number] [place] [address] 74434- 2509 May, [facility] [address] [place] [id number] [place] [address] 91176- 2037 May, Overgrown toenails 703.8 ; Seborrheic keratosis 702.19 ; Skin tag 701.9 ; Warts, genital 078.11 ; Cramps, extremity 729.82 ; Increased appetite 783.6 and Heat rash 705.1 [facility] [address] [place] [id number] [place] [address] 27090- 1838 May, [facility] [address] [place] [place] [id number] [place] [address] 49375- 3971 Apr, [facility] [address] 20426- 6975 Apr, [facility] [address] [place] [id number] [place] [address] 53071- 6088 March, [facility] [address] 20100- 6954 14 Feb, 2015 [facility] [place] [facility] [address] [id number] [place] [address]- 2810 13 Feb, 2015 [facility] [place] [facility] [address] [id number] [place] [address]- 2895 27 Jan, 2015 [facility] [place] [facility] [address] [id number] [place] [address]- 1760 27 Jan, 2015 [facility] [place] [facility] [address] [id number] [place] [address]- 7552 27 Jan, 2015 [facility] [place] [facility] [address] [id number] [place] [address]- 9901 27 Jan, 2015 [facility] [place] [facility] [address] [id number] [place] [address]- 7810 19 Jan, 2015 [facility] [place] [facility] [address] [facility] [id number] [place] [address]- 5951 19 Jan, 2015 [facility] [place] [facility] [address] [id number] [place] [address]- 6466 16 Jan, 2015 [facility] [place] [facility] [address] [id number] [place] [address]- 3047 16 Jan, 2015 [facility] [place] [facility] [address] [facility] [id number] [place] [address]- 2367 10 Jan, 2015 [facility] [place] [facility] [address] [id number] [place] [address]- 0910 10 Jan, 2015 [facility] [place] [facility] [address] [id number] [address]- 5177 05 Jan, 2015 [facility] [place] [facility] [address] [id number] [place] [address]- 3665 05 Jan, 2015 [facility] [place] [facility] [address] [id number] [place] [address]- 9523 19 Dec, 2014 [facility] [place] [facility] [address] [facility] [id number] [place] [address]- 0050 19 Dec, 2014 [facility] [place] [facility] [address] [id number] [place] [address]- 5563 Dec, 2014 [facility] [place] [facility] [address] [id number] [place] [address]- 3013 Dec, 2014 [facility] [place] [facility] [address] [id number] [place] 7654 Dec, 2014 [facility] [place] [facility] [address] [id number] [place] [address]- 2170 Dec, 2014 [facility] [place] [facility] [address] [id number] [place] [address]- 9150 Dec, 2014 [facility] [place] [facility] [address] [id number] [place] [address]- 2370 Dec, [facility] [place] [facility] [address] [id number] [place] [address]- 1236 Nov, [facility] [place] [facility] [address] [id number] [place] [address]- 3321 Nov, [facility] [place] [facility] [address] [id number] [place] [address]- 7098 Nov, [facility] [place] [facility] [address] [id number] [place] [address]- 5037 Nov, [facility] [place] [facility] [address] [id number] [place] [address]- 5251 Nov, [facility] [place] [facility] [address] [id number], [place] [address]- 8227 Nov, [facility] [place] [facility] [address] [id number] [place] [address]- 8398 Nov, [facility] [place] [facility] [address] [id number] [place] [address]- 9261 Nov, [facility] [place] [facility] [address] [id number] [place] 2500 Oct, [facility] [place] [facility] [address] [id number], [place] [address]- 8825 Oct, [facility] [place] [facility] [address] [id number] [place] 6056 Sep, [facility] [place] [facility] [address] [id number] [place] [address]- 2300 Sep, [facility] [place] [facility] [address] [id number] [place] [address]- 7553 Sep, [facility] [place] [facility] [address] [id number] [place] [address]- 5805 Sep, [facility] [place] [facility] [address] [id number] [place] 0990 Aug, [facility] [place] [facility] [address] [id number] [place] [address]- 9363 Aug, [facility] [place] [facility] [address] [id number] [place] [address]- 9526 Aug, [facility] [place] [facility] [address] [id number] [place] [address]- 8326 Aug, [facility] [place] [facility] [address] [id number], [place] [address]- 6426 Aug, [facility] [place] [facility] [address] [id number] [place] [address]- 2849 Aug, [facility] [place] [facility] [address] [id number], [place] [address]- 7323 Aug, [facility] [place] [facility] [address] [id number], [place] [address]- 1461 Aug, [facility] [place] [facility] [address] [id number], [place] [address]- 0879 Jul, [facility] [place] [facility] [address] [id number] [place] [address]- 5602 Jul, [facility] [place] [facility] [address] [id number] [place] [address]- 2948 Jul, [facility] [place] [facility] [address] [id number] [place] [address]- 4966 Jul, [facility] [place] [facility] [address] [id number] [place] [address]- 9569 Jul, [facility] [place] [facility] [address] [id number] [place] [address]- 8747 Jun, [facility] [place] [facility] [address] [id number] [place] [address]- 7697 Jun, [facility] [place] [facility] [address] [id number] [place] [address]- 1886 Jun, [facility] [place] [facility] [address] [id number] [place] [address]- 9527 Jun, [facility] [place] [facility] [address] [id number] [place] [address]- 6561 Jun, [facility] [place] [facility] [address] [id number] [place] [address]- 4165 Jun, [facility] [place] [facility] [address] [id number] [place] [address]- 9294 May, [facility] [place] [facility] [address] [id number] [place] [address]- 1229 May, [facility] [place] [facility] [address] [id number] [place] [address]- 7042 May, [facility] [place] [facility] [address] [id number] [place] [address]- 3183 May, [facility] [place] [facility] [address] [id number] [place] [address]- 2010 Apr, [facility] [place] [facility] [address] [id number] [place] [address]- 1616 Apr, [facility] [place] [facility] [address] [id number] [place] [address]- 2524 Apr, [facility] [place] [facility] [address] [id number] [place] [address]- 8503 Apr, [facility] [place] [facility] [address] [id number] [place] [address]- 4855 Apr, [facility] [place] [facility] [address] [id number] [place] [address]- 5193 Apr, [facility] [place] [facility] [address] [id number] [place] [address]- 5111 March, [facility] [place] [facility] [address] [id number] [place] [address]- 6510 March, [facility] [place] [facility] [address] [id number] [place] [address]- 8532 March, [facility] [place] [facility] [address] [id number] [place] [address] March, [facility] [place] [facility] [address] [id number] [place] [address] Feb, [facility] [place] [facility] [address] [id number] [place] [address] Feb, [facility] [place] [facility] [address] [id number] [place] [address] Feb, [facility] [place] [facility] [address] [id number] [place] [address] Feb, [facility] [place] [facility] [address] [id number] [place] [address] Feb, [facility] [place] [facility] [address] [id number] [place] [address] Feb, [facility] [place] [facility] [address] [id number] [place] [address] Feb, [facility] [place] [facility] [address] [id number] [place] [address] Feb, [facility] [place] [facility] [address] [id number] [place] [address] Feb, [facility] [place] [facility] [address] [id number] [place] [address] Feb, [facility] [place] [facility] [address] [id number] [place] [address]69 Feb, [facility] [place] [facility] [address] [id number] [place] [address] Feb, [facility] [place] [facility] [address] [facility] [id number] [place] [address] Feb, [facility] [place] [facility] [address] [facility] [id number] [place] [address] Feb, [facility] [place] [facility] [address] [id number] [place] [address] Feb, [facility] [place] [facility] [address] [facility] [id number] [place] [address] Feb, [facility] [place] [facility] [address] [facility] [id number] [place] [address] Jan, [facility] [place] [facility] [address] [facility] [id number] [place] [address] Jan, [facility] [place] [facility] [address] [facility] [id number] [place] [address] Dec, [facility] [place] [facility] [address] [facility] [id number] [place] [address] Dec, [facility] [place] [facility] [address] [facility] [id number] [place] [address] Dec, [facility] [place] [facility] [address] [facility] [id number] [place] [address] Dec, [facility] [place] [facility] [address] [facility] [id number] [place] [address] Dec, [facility] [place] [facility] [address] [facility] [id number] [place] [address] Dec, [facility] [place] [facility] [address] [facility] [id number] [place] [address] Dec, [facility] [place] [facility] [address] [id number] [place] [address] Nov, [facility] [place] [facility] [address] [id number] [place] [address] Nov, [facility] [place] [facility] [address] [id number] [place] [address] Nov, [facility] [place] [facility] [address] [id number] [place] [address] Nov, [facility] [place] [facility] [address] [id number] [place] [address] Oct, [facility] [place] [facility] [address] [id number] [place] [address] Oct, [facility] [place] [facility] [address] [id number] [place] [address] Sep, [facility] [place] [facility] [address] [id number] [place] [address] Sep, [facility] [place] [facility] [address] [id number] [place] [address] Aug, [facility] [place] [facility] [address] [id number], [place] [address] Aug, [facility] [place] [facility] [address] [id number], [place] [address] Aug, [facility] [place] [facility] [address] [id number], [place] [address] Aug, [facility] [place] [facility] [address] [id number] [place] [address] Aug, [facility] [place] [facility] [address] [id number] [place] [address] Aug, [facility] [place] [facility] [address] [id number] Aug, [facility] [place] [facility] [address] [id number] [place] [address] 15 Aug[facility] 2013 [facility] [address] [address] [id number] [place] [address] Aug, [facility] [address] [id number] [place] [address] Aug, [facility] [address] [id number] [place] [address] Jun, [facility] [place] [facility] [address] [id number] [place] [address] Jun, [facility] [address] [id number] [place] [address] May, [facility] [address] [id number] [place] [address] Apr, [facility] [address] [id number], [place] [address] Apr, [facility] [address] [id number] [place] [address] March, [facility] [address] [id number] [place] [address] Feb, [facility] [address] [id number] [place] [address] Jan, [facility] [address] [id number] [place] [address] Jan, [facility] [place] [facility] [address] [id number], [place] [address] Dec, [facility] [place] [facility] [address] [id number] [place] [address] Dec, [facility] [place] [facility] [address] [id number], [place] [address] Nov, [facility] [place] [facility] [address] [id number], [place] [address] Jul, [facility] [address] [facility] [id number], [place] [address] Jul, [facility] [address] [facility] [id number], [place] [address] Jun, [facility] [address] [facility] [id number], [place] [address] May, [facility] [address] [facility] [id number], [place] [address] May, [facility] [address] [facility] [id number], [place] [address] May, [facility] [address] [facility] [id number], [place] [address] May, [facility] [address] [id number], [place] [address] May, [facility] [id number], [place] [address] May, [facility] [id number], [place] [address] May, [facility] [id number], [place] [address] Apr, [facility] [id number], [place] [address] Apr, [facility] [address] [id number], [place] [address] Apr, [facility] [address] [id number], [place] [address] Apr, IMMUNIZATIONS No Known Immunizations SOCIAL HISTORY Never Assessed REASON FOR VISIT Controlled Med Refill 04/29/18 PLAN OF CARE VITAL SIGNS MEDICATIONS Medication Instructions Dosage Frequency Start Date End Date Duration Status Ambien 10 MG Orally Once a day 1 tablet at bedtime 24h May, 28 days Active Hydrocodone-Acetaminophen 10-325 MG Orally 4 times a day 1 tablet as needed for pain 6h March, 28 days Active RESULTS No Results PROCEDURES No Known procedures INSTRUCTIONS MEDICATIONS ADMINISTERED No Known Medications MEDICAL (GENERAL) HISTORY Type Description Date Medical History hypogonadism Medical History hyperlipidemia Medical History pre-diabetic Medical History chronic pain Medical History COPD Surgical History skin cancer 1999 Hospitalization History surgery Hospitalization History MRSA infection 05/2015
--- OUTSIDE RECORDS SUMMARY | 2018-10-30 16:49 | XMS REPORT ---
Author Author JOSÉ LUIS RODRÍGUEZ [facility] Address [address] [place] [address] Care Team Providers Care Undertaker Helper Name Role Phone JOSÉ LUIS RODRÍGUEZ Unavailable PROBLEMS Type Condition ICD9-CM Code LWO59-MS Code Onset Dates Condition Status SNOMED Code Problem Hypertriglyceridemia E78.1 Active 032179335 Problem 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 Active 65304908 Problem Family history of diabetes mellitus Z83.3 Active 743590798 Problem History of MRSA infection Z86.14 Active 602561591 Problem Chronic pain G89.29 Active 72455858 Problem Dysthymia F34.1 Active 25899527 Problem Insomnia, unspecified type G47.00 Active 990429762 Problem Chronic obstructive pulmonary disease, unspecified COPD type J44.9 Active 06304766 Problem Osteoarthritis M19.90 Active 589463172 Problem Primary insomnia F51.01 Active 4393729 Problem Essential hypertension I10 Active 18997690 ALLERGIES No Information ENCOUNTERS Encounter Location Date Diagnosis [place] [id number] [place] [address] 98757- 2999 Jun, [place] [id number] [place] [address] 16395- 3433 May, Dysthymia F34.1 ; Chronic obstructive pulmonary disease, unspecified COPD type J44.9 ; Chronic pain G89.29 ; Insomnia, unspecified type G47.00 ; BMI 40.0-44.9, adult Z68.41 and Other seborrheic keratosis L82.1 [place] [id number] [place] [address] 68419- 9192 May, Chronic pain G89.29 and Insomnia, unspecified type G47.00 [place] [id number] [place] [address] 63984- 6697 Apr, Hypertriglyceridemia E78.1 [place] [address] [place] [id number] [place] [address] 72269- 5015 Apr, Chronic pain G89.29 and Insomnia, unspecified type G47.00 [place] [address] [place] [id number] [place] [address] 91348- 9976 15 Apr, 2018 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 ; Hypertriglyceridemia E78.1 and Fatigue, unspecified type R53.83 [place] [address] [place] [id number] [place] [address] 99313- 7204 13 Apr, 2018 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 ; Chronic pain G89.29 ; Primary insomnia F51.01 ; Chronic obstructive pulmonary disease, unspecified COPD type J44.9 ; Dysthymia F34.1 ; Hypertriglyceridemia E78.1 ; Fatigue, unspecified type R53.83 and Rash R21 [place] [address] [place] [id number] [place] [address] 84956- 5989 March, Chronic pain G89.29 and Insomnia, unspecified type G47.00 [place] [address] [place] [id number] [place] [address] 16375- 7626 March, Insomnia, unspecified type G47.00 [place] [address] [place] [id number] [place] [address] 13465- 0062 Feb, Chronic pain G89.29 [place] [address] [place] [id number] [place] [address] 54817- 8534 Feb, Chronic pain G89.29 [place] [address] [place] [id number] [place] [address] 21568- 3986 Jan, Chronic pain G89.29 [place] [address] [place] [id number] [place] [address] 08037- 0320 Dec, Chronic pain G89.29 [place] [id number] [place] [address] 64977- 7127 Nov, Chronic pain G89.29 and Insomnia, unspecified type G47.00 [place] [address] [place] [id number] [address]- 5500 Oct, Insomnia, unspecified type G47.00 ; Chronic pain G89.29 and Colon cancer screening Z12.11 [facility] [address] [address]- 2477 Oct, Chronic pain G89.29 [facility] [id number] [place] [address] 78249- 5824 Sep, Chronic pain G89.29 and Insomnia, unspecified type G47.00 [facility] [address] [address]- 8401 Sep, Chronic pain G89.29 [facility] [address] [place] [id number] [place] [address] 92625- 0899 Sep, [facility] [address] [place] [id number] [place] [address] 74098- 1676 Aug, Medicare welcome exam Z00.00 ; Encounter for immunization Z23 ; Colon cancer screening Z12.11 and Encounter for screening for lung cancer Z12.2 [place] [id number] [place] [address] 12450- 0425 Aug, [facility] [id number] [place] [address] 98737- 1306 Aug, Chronic pain G89.29 and Insomnia, unspecified type G47.00 [facility] [address], [place] [address]- 3739 Aug, Hypertriglyceridemia E78.1 [facility] [address] [address]- 8603 Jul, Chronic pain G89.29 and Insomnia, unspecified type G47.00 [facility] [address] [address]- 4153 Jun, Hypertriglyceridemia E78.1 [facility] [address] [address]- 4135 Jun, Chronic pain G89.29 and Insomnia, unspecified type G47.00 [facility] [address] [place] [id number] [place] [address] 84902- 0630 Jun, [facility] [address] [place] [id number] [place] [address] 74166- 9142 Jun, [facility] [address] [place] [id number] [place] [address] 86857- 1514 May, 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 ; Chronic pain G89.29 ; Insomnia, unspecified type G47.00 and Rash R21 [facility] [address] [place] [id number] [place] [address] 40662- 0339 May, Chronic pain G89.29 [facility] [address] [place] [id number] [place] [address] 47752- 0529 May, Hypertriglyceridemia E78.1 [facility] [address] 45113- 4704 Apr, Chronic pain G89.29 [facility] [address] [place] [id number] [place] [address] 50800- 3263 Apr, Chronic pain G89.29 ; 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 ; Hypertriglyceridemia E78.1 and Primary insomnia F51.01 [facility] [address] [place] [id number] [place] [address] 48710- 7239 March, Chronic pain G89.29 [facility] [address] [place] [id number] [place] [address] 06744- 3035 March, Chronic pain G89.29 [facility] [address] [place] [id number] [place] [address] 22896- 7735 Feb, [facility] [address] [place] [id number] [place] [address] 81714- 8450 Feb, Chronic pain G89.29 [facility] [id number] [place] [address] 71996- 9286 Jan, Chronic pain G89.29 [facility] [address] [place] [address] 27726- 6196 07 Dec, 2016 Chronic pain G89.29 [facility] [address] [place] [id number] [place] [address] 04470 2546 Dec, [facility] [address] [place] [id number] [place] [address] 48341 2546 Nov, Hypertriglyceridemia E78.1 [facility] [address] [place] [id number] [place] [address] 95240 2546 Nov, [facility] [address] [place] [id number] [place] [address] 01817- 8226 Nov, Chronic pain G89.29 ; Hypertriglyceridemia E78.1 and Chronic obstructive pulmonary disease, unspecified COPD type J44.9 [facility] [address] [place] [id number] [place] [address] 54289- 4916 Nov, Chronic pain G89.29 [facility] [address] [place] [id number] [place] [address] 65018 2544 Oct, Chronic pain G89.29 [facility] [address] [place] [id number] [place] [address] 48386 2546 Oct, [facility] [address] [place] [id number] [place] [address] 51135- 7012 Sep, Chronic obstructive pulmonary disease, unspecified COPD type J44.9 and Abscess L02.91 [facility] [address] [place] [id number] [place] [address] 22529- 4195 Sep, Chronic pain G89.29 [facility] [id number] [place] [address] 42276 2546 Aug, Chronic pain G89.29 [facility] [address] [place] [id number] [place] [address] 47633 2546 Aug, Chronic pain G89.29 [facility] [address] [place] [id number] [place] [address] 10087 2546 Aug, Cutaneous horn L85.8 and Skin tag L91.8 [facility] [address] [place] [id number] [place] [address] 92610- 7578 Jul, [facility] [address] [place] [id number] [place] [address] 21727- 0120 Jul, Hypertriglyceridemia E78.1 [facility] [address] 00089- 3295 07 Jul, 2016 Other chronic pain G89.29 ; Essential hypertension I10 ; 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 ; Hyperlipidemia, unspecified hyperlipidemia type E78.5 and Cutaneous horn L85.8 [facility] [address] 19229- 1619 Jun, Chronic pain G89.29 [facility] [address] [place] [id number] [place] [address] 25084- 8494 May, Chronic pain G89.29 [facility] [address] 87937- 7500 May, [facility] [address] [place] [id number] [place] [address] 29036- 6481 May, Skin infection L08.9 [facility] [address] [place] [id number] [place] [address] 49116- 8018 Apr, Chronic pain G89.29 [facility] [address] [place] [id number] [place] [address] 76958- 9204 Apr, [facility] [address] [place] [id number] [place] [address] 86135- 254 Apr, Chronic pain G89.29 [facility] [address] 41691- 8977 March, [facility] [address] [place] [id number] [place] [address] 21920- 2860 Feb, Chronic pain G89.29 ; 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 and Hypertriglyceridemia E78.1 [facility] [address] [place] [address]- 7890 07 Feb, 2016 [facility] [address] [place] [id number] [place] [address] 99183- 3653 Jan, [facility] [address] [place] [id number] [place] [address] 18859- 3585 Dec, [facility] [address] [place] [id number] [place] [address] 39401- 4114 Nov, [facility] [address] [place] [id number] [place] [address] 74876- 3604 Oct, [facility] [address] [place] [id number] [place] [address] 53798- 9640 Oct, 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 [facility] [address] [place] [id number] [place] [address] 62708- 2249 Oct, Other chronic pain G89.29 ; Chronic obstructive pulmonary disease, unspecified COPD type J44.9 ; Insomnia, unspecified type G47.00 ; 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 and Essential hypertension I10 [facility] [address] [place] [id number] [place] [address] 68913- 4477 Sep, [facility] [address] [place] [id number] [place] [address] 06494- 8768 Aug, [facility] [address] [place] [id number] [place] [address] 62544- 8835 30 Jul, 2015 [facility] [address] [place] [id number] [place] [address] 19531- 5911 14 Jul, 2015 [facility] [address] [place] [id number] [place] [address] 13486- 8358 14 Jul, 2015 Overweight 278.02 and Hyperinsulinemia 251.1 [facility] [address] [place] [id number] [place] [address] 97117- 3723 03 Jul, 2015 [facility] [address] [place] [id number] [place] [address] 23895- 6215 Jun, Skin tags, multiple acquired 701.9 [facility] [address] [place] [id number] [place] [address] 72527- 3271 Jun, Other chronic pain 338.29 ; Erectile dysfunction 607.84 ; Hyperinsulinemia 251.1 and Hypertension 401.9 [facility] [address] [place] [id number] [place] [address] 01779- 7747 Jun, [facility] [address] 49902- 5693 Jun, [facility] [address] [place] [id number] [place] [address] 93636- 2244 Jun, [facility] [address] 94395- 6994 May, Pure hyperglyceridemia 272.1 [facility] [address] 50165- 4850 May, Pure hyperglyceridemia 272.1 [facility] [address] [place] [id number] [place] [address] 02207- 2528 May, [facility] [address] [place] [id number] [place] [address] 58725- 8286 May, Overgrown toenails 703.8 ; Seborrheic keratosis 702.19 ; Skin tag 701.9 ; Warts, genital 078.11 ; Cramps, extremity 729.82 ; Increased appetite 783.6 and Heat rash 705.1 [facility] [address] [place] [id number] [place] [address] 47177- 7107 May, [facility] [address] [place] [id number] [place] [address] 03794- 4687 Apr, [facility] [address] 18114- 6428 Apr, [facility] [address] [place] [id number] [place] [address] 19854- 0775 March, [facility] [address] 41103- 7336 14 Feb, 2015 [facility] [place] [facility] [address] [id number] [place] [address]- 9778 13 Feb, 2015 [facility] [place] [facility] [address] [id number] [place] [address]- 3866 27 Jan, 2015 [facility] [place] [facility] [address] [id number] [place] [address]- 7294 27 Jan, 2015 [facility] [place] [facility] [address] [id number] [place] [address]- 0695 27 Jan, 2015 [facility] [place] [facility] [address] [id number] [place] [address]- 4519 27 Jan, 2015 [facility] [place] [facility] [address] [id number] [place] [address]- 0267 19 Jan, 2015 [facility] [place] [facility] [address] [facility] [id number] [place] [address]- 7358 19 Jan, 2015 [facility] [place] [facility] [address] [id number] [place] [address]- 8383 16 Jan, 2015 [facility] [place] [facility] [address] [id number] [place] [address]- 1473 16 Jan, 2015 [facility] [place] [facility] [address] [facility] [id number] [place] [address]- 7217 10 Jan, 2015 [facility] [place] [facility] [address] [id number] [place] [address]- 1141 10 Jan, 2015 [facility] [place] [facility] [address] [id number] [address]- 5173 05 Jan, 2015 [facility] [place] [facility] [address] [id number] [place] [address]- 4084 05 Jan, 2015 [facility] [place] [facility] [address] [id number] [place] [address]- 8672 19 Dec, 2014 [facility] [place] [facility] [address] [facility] [id number] [place] [address]- 7098 19 Dec, 2014 [facility] [place] [facility] [address] [id number] [place] [address]- 8765 Dec, 2014 [facility] [place] [facility] [address] [id number] [place] [address]- 6989 Dec, 2014 [facility] [place] [facility] [address] [id number] [place] [address]- 2038 Dec, 2014 [facility] [place] [facility] [address] [id number] [place] [address]- 5681 Dec, 2014 [facility] [place] [facility] [address] [id number] [place] [address]- 6942 Dec, 2014 [facility] [place] [facility] [address] [id number] [place] [address]- 1609 Dec, [facility] [place] [facility] [address] [id number] [place] [address]- 9384 Nov, [facility] [place] [facility] [address] [id number] [place] [address]- 9150 Nov, [facility] [place] [facility] [address] [id number] [place] [address]- 4985 Nov, [facility] [place] [facility] [address] [id number] [place] [address]- 4750 Nov, [facility] [place] [facility] [address] [id number] [place] [address]- 3345 Nov, [facility] [place] [facility] [address] [id number], [place] [address]- 8025 Nov, [facility] [place] [facility] [address] [id number] [place] [address]- 6992 Nov, [facility] [place] [facility] [address] [id number] [place] [address]- 3270 Nov, [facility] [place] [facility] [address] [id number] [place] 2605 Oct, [facility] [place] [facility] [address] [id number], [place] [address]- 0758 Oct, [facility] [place] [facility] [address] [id number] [place] 7215 Sep, [facility] [place] [facility] [address] [id number] [place] [address]- 0531 Sep, [facility] [place] [facility] [address] [id number] [place] [address]- 1798 Sep, [facility] [place] [facility] [address] [id number] [place] [address]- 4636 Sep, [facility] [place] [facility] [address] [id number] [place] 7185 Aug, [facility] [place] [facility] [address] [id number] [place] [address]- 8747 Aug, [facility] [place] [facility] [address] [id number] [place] [address]- 6161 Aug, [facility] [place] [facility] [address] [id number] [place] [address]- 9560 Aug, [facility] [place] [facility] [address] [id number], [place] [address]- 9430 Aug, [facility] [place] [facility] [address] [id number] [place] [address]- 5904 Aug, [facility] [place] [facility] [address] [id number], [place] [address]- 9261 Aug, [facility] [place] [facility] [address] [id number], [place] [address]- 4503 Aug, [facility] [place] [facility] [address] [id number], [place] [address]- 1702 Jul, [facility] [place] [facility] [address] [id number] [place] [address]- 7215 Jul, [facility] [place] [facility] [address] [id number] [place] [address]- 5167 Jul, [facility] [place] [facility] [address] [id number] [place] [address]- 4556 Jul, [facility] [place] [facility] [address] [id number] [place] [address]- 0870 Jul, [facility] [place] [facility] [address] [id number] [place] [address]- 1735 Jun, [facility] [place] [facility] [address] [id number] [place] [address]- 6359 Jun, [facility] [place] [facility] [address] [id number] [place] [address]- 7611 Jun, [facility] [place] [facility] [address] [id number] [place] [address]- 9301 Jun, [facility] [place] [facility] [address] [id number] [place] [address]- 4438 Jun, [facility] [place] [facility] [address] [id number] [place] [address]- 8077 Jun, [facility] [place] [facility] [address] [id number] [place] [address]- 6303 May, [facility] [place] [facility] [address] [id number] [place] [address]- 7042 May, [facility] [place] [facility] [address] [id number] [place] [address]- 1595 May, [facility] [place] [facility] [address] [id number] [place] [address]- 4902 May, [facility] [place] [facility] [address] [id number] [place] [address]- 8173 Apr, [facility] [place] [facility] [address] [id number] [place] [address]- 8146 Apr, [facility] [place] [facility] [address] [id number] [place] [address]- 0278 Apr, [facility] [place] [facility] [address] [id number] [place] [address]- 6213 Apr, [facility] [place] [facility] [address] [id number] [place] [address]- 5715 Apr, [facility] [place] [facility] [address] [id number] [place] [address]- 5239 Apr, [facility] [place] [facility] [address] [id number] [place] [address]- 2188 March, [facility] [place] [facility] [address] [id number] [place] [address]- 0156 March, [facility] [place] [facility] [address] [id number] [place] [address]- 7573 March, [facility] [place] [facility] [address] [id number] [place] [address]- 4048 March, [facility] [place] [facility] [address] [id number] [place] [address]- 6757 Feb, [facility] [place] [facility] [address] [id number] [place] [address]- 6737 Feb, [facility] [place] [facility] [address] [id number] [place] [address]- 8936 Feb, [facility] [place] [facility] [address] [id number] [place] [address]- 2209 Feb, [facility] [place] [facility] [address] [id number] [place] [address]- 3880 Feb, [facility] [place] [facility] [address] [id number] [place] [address]- 8278 Feb, [facility] [place] [facility] [address] [id number] [place] [address]- 7325 Feb, [facility] [place] [facility] [address] [id number] [place] [address]- 5835 Feb, [facility] [place] [facility] [address] [id number] [place] [address]- 2483 Feb, [facility] [place] [facility] [address] [id number] [place] [address]- 4411 Feb, [facility] [place] [facility] [address] [id number] [place] [address] Feb, [facility] [place] [facility] [address] [id number] [place] [address] Feb, [facility] [place] [facility] [address] [facility] [id number] [place] [address] Feb, [facility] [place] [facility] [address] [facility] [id number] [place] [address] Feb, [facility] [place] [facility] [address] [id number] [place] [address] Feb, [facility] [place] [facility] [address] [facility] [id number] [place] [address] Feb, [facility] [place] [facility] [address] [facility] [id number] [place] [address] Jan, [facility] [place] [facility] [address] [facility] [id number] [place] [address] Jan, [facility] [place] [facility] [address] [facility] [id number] [place] [address] Dec, [facility] [place] [facility] [address] [facility] [id number] [place] [address] Dec, [facility] [place] [facility] [address] [facility] [id number] [place] [address] Dec, [facility] [place] [facility] [address] [facility] [id number] [place] [address] Dec, [facility] [place] [facility] [address] [facility] [id number] [place] [address] Dec, [facility] [place] [facility] [address] [facility] [id number] [place] [address] Dec, [facility] [place] [facility] [address] [facility] [id number] [place] [address] Dec, [facility] [place] [facility] [address] [id number] [place] [address] Nov, [facility] [place] [facility] [address] [id number] [place] [address] Nov, [facility] [place] [facility] [address] [id number] [place] [address] Nov, [facility] [place] [facility] [address] [id number] [place] [address] Nov, [facility] [place] [facility] [address] [id number] [place] [address] Oct, [facility] [place] [facility] [address] [id number] [place] [address] Oct, [facility] [place] [facility] [address] [id number] [place] [address] Sep, [facility] [place] [facility] [address] [id number] [place] [address] Sep, [facility] [place] [facility] [address] [id number] [place] [address] Aug, [facility] [place] [facility] [address] [id number], [place] [address] Aug, [facility] [place] [facility] [address] [id number], [place] [address] Aug, [facility] [place] [facility] [address] [id number], [place] [address] Aug, [facility] [place] [facility] [address] [id number] [place] [address] Aug, [facility] [place] [facility] [address] [id number] [place] [address] Aug, [facility] [place] [facility] [address] [id number] [address] [address] Aug, [facility] [place] [facility] [address] [id number] [place] [address] 15 Aug, 2013 [facility] [address] [id number] [place] [address] Aug, [facility] [address] [id number] [place] [address] Aug, [facility] [address] [id number] [place] [address] Jun, [facility] [place] [facility] [address] [id number] [place] [address] Jun, [facility] [address] [id number] [place] [address] May, [facility] [address] [id number] [place] [address] Apr, [facility] [address] [id number], [place] [address] Apr, [facility] [address] [id number] [place] [address] March, [facility] [address] [id number] [place] [address] Feb, [facility] [address] [id number] [place] [address] Jan, [facility] [address] [id number] [place] [address] Jan, [facility] [facility] [address] [id number], [place] [address] Dec, [facility] [facility] [address] [id number] [place] [address] Dec, [facility] [address] [id number], [place] [address] Nov, [facility] [address] [id number], [place] [address] Jul, [facility] [address] [facility] [id number], [place] [address] Jul, [facility] [id number], [place] [address] Jun, [facility] [address] [facility] [id number], [place] [address] May, [facility] [id number], [place] [address] May, [facility] [address] [facility] [id number], [place] [address] May, [facility] [id number], [place] [address] May, [facility] [id number], [place] [address] May, [facility] [id number], [place] [address] May, [facility] [id number], [place] [address] May, [facility] [id number], [place] [address] Apr, [facility] [id number], [place] [address] Apr, [facility] [address] [id number], [place] [address] Apr, [facility] [address] [id number], [place] [address] Apr, IMMUNIZATIONS No Known Immunizations SOCIAL HISTORY Never Assessed REASON FOR VISIT Controlled Med Refill/Ambien PLAN OF CARE VITAL SIGNS MEDICATIONS Medication [...]
--- OUTSIDE RECORDS SUMMARY | 2018-10-30 16:50 | XMS REPORT ---
Author Author JOSÉ LUIS RODRÍGUEZ [facility] Address [address] [place] [address] Care Team Providers Care Dry Man Name Role Phone JOSÉ LUIS RODRÍGUEZ Unavailable PROBLEMS Type Condition ICD9-CM Code VLN32-UN Code Onset Dates Condition Status SNOMED Code Problem Hypertriglyceridemia E78.1 Active 296426599 Problem 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 Active 63747854 Problem Family history of diabetes mellitus Z83.3 Active 602245634 Problem History of MRSA infection Z86.14 Active 739012005 Problem Chronic pain G89.29 Active 45222632 Problem Dysthymia F34.1 Active 99985544 Problem Insomnia, unspecified type G47.00 Active 329364033 Problem Chronic obstructive pulmonary disease, unspecified COPD type J44.9 Active 49682714 Problem Osteoarthritis M19.90 Active 188577091 Problem Primary insomnia F51.01 Active 0624227 Problem Essential hypertension I10 Active 96501246 ALLERGIES No Information ENCOUNTERS Encounter Location Date Diagnosis [place] [id number] [place] [address] 83355- 9365 Jun, [place] [id number] [place] [address] 44826- 2267 May, Dysthymia F34.1 ; Chronic obstructive pulmonary disease, unspecified COPD type J44.9 ; Chronic pain G89.29 ; Insomnia, unspecified type G47.00 ; BMI 40.0-44.9, adult Z68.41 and Other seborrheic keratosis L82.1 [place] [address] [place] [address] 19324- 2040 May, Chronic pain G89.29 and Insomnia, unspecified type G47.00 [place] [address] [place] [address] 72978- 4653 Apr, Hypertriglyceridemia E78.1 [place] [address] [place] [id number] [place] [address] 30983- 8104 Apr, Chronic pain G89.29 and Insomnia, unspecified type G47.00 [place] [address] [place] [id number] [place] [address] 57180- 3731 15 Apr, 2018 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 ; Hypertriglyceridemia E78.1 and Fatigue, unspecified type R53.83 [place] [address] [place] [id number] [place] [address] 36179- 9376 13 Apr, 2018 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 ; Chronic pain G89.29 ; Primary insomnia F51.01 ; Chronic obstructive pulmonary disease, unspecified COPD type J44.9 ; Dysthymia F34.1 ; Hypertriglyceridemia E78.1 ; Fatigue, unspecified type R53.83 and Rash R21 [place] [address] [place] [id number] [place] [address] 55961- 5855 March, Chronic pain G89.29 and Insomnia, unspecified type G47.00 [place] [address] [place] [id number] [place] [address] 54375- 7191 March, Insomnia, unspecified type G47.00 [place] [address] [place] [id number] [place] [address] 15685- 6975 Feb, Chronic pain G89.29 [place] [address] [place] [id number] [place] [address] 31589- 8333 Feb, Chronic pain G89.29 [place] [address] [place] [id number] [place] [address] 15352- 5374 Jan, Chronic pain G89.29 [place] [address] [place] [id number] [place] [address] 71630- 1203 Dec, Chronic pain G89.29 [place] [address] [place] [address] 83349- 5269 Nov, Chronic pain G89.29 and Insomnia, unspecified type G47.00 [place] [address] [place] [id number] [address] 4891 Oct, Insomnia, unspecified type G47.00 ; Chronic pain G89.29 and Colon cancer screening Z12.11 [facility] [address] [address] 2628 Oct, Chronic pain G89.29 [facility] [address] [place] [address] 87251- 2570 Sep, Chronic pain G89.29 and Insomnia, unspecified type G47.00 [facility] [address] [address]- 5173 Sep, Chronic pain G89.29 [facility] [address] [place] [id number] [place] [address] 94708- 7867 Sep, [facility] [address] [place] [id number] [place] [address] 35055- 8610 Aug, Medicare welcome exam Z00.00 ; Encounter for immunization Z23 ; Colon cancer screening Z12.11 and Encounter for screening for lung cancer Z12.2 [place] [address] [place] [address] 32180- 6812 Aug, [facility] [address] [place] [address] 92038- 2790 Aug, Chronic pain G89.29 and Insomnia, unspecified type G47.00 [facility] [address] [address]- 4009 Aug, Hypertriglyceridemia E78.1 [facility] [address] [address]- 9527 Jul, Chronic pain G89.29 and Insomnia, unspecified type G47.00 [facility] [address] [address] 1960 Jun, Hypertriglyceridemia E78.1 [facility] [address] [address]- 7749 Jun, Chronic pain G89.29 and Insomnia, unspecified type G47.00 [facility] [address] [place] [id number] [place] [address] 12433- 1563 Jun, [facility] [address] [place] [id number] [place] [address] 58384- 6071 Jun, [facility] [address] [place] [id number] [place] [address] 82946- 9517 May, 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 ; Chronic pain G89.29 ; Insomnia, unspecified type G47.00 and Rash R21 [facility] [address] [place] [id number] [place] [address] 52373- 1045 May, Chronic pain G89.29 [facility] [address] [place] [id number] [place] [address] 42043- 0074 May, Hypertriglyceridemia E78.1 [facility] [address] 89343- 8113 Apr, Chronic pain G89.29 [facility] [address] [place] [id number] [place] [address] 46020- 8199 Apr, Chronic pain G89.29 ; 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 ; Hypertriglyceridemia E78.1 and Primary insomnia F51.01 [facility] [address] [place] [id number] [place] [address] 95156- 4683 March, Chronic pain G89.29 [facility] [address] [place] [id number] [place] [address] 34602- 7274 March, Chronic pain G89.29 [facility] [address] [place] [id number] [place] [address] 96587- 1900 Feb, [facility] [address] [place] [id number] [place] [address] 24994- 0781 Feb, Chronic pain G89.29 [facility] [address] [place] [address] 72474- 0977 Jan, Chronic pain G89.29 [facility] [address] [place] [address] 36662- 6680 07 Dec, 2016 Chronic pain G89.29 [facility] [address] [place] [id number] [place] [address] 90811 2546 Dec, [facility] [address] [place] [id number] [place] [address] 70640 2546 Nov, Hypertriglyceridemia E78.1 [facility] [address] [place] [id number] [place] [address] 28361 2546 Nov, [facility] [address] [place] [id number] [place] [address] 40216- 5566 Nov, Chronic pain G89.29 ; Hypertriglyceridemia E78.1 and Chronic obstructive pulmonary disease, unspecified COPD type J44.9 [facility] [address] [place] [id number] [place] [address] 96826- 8336 Nov, Chronic pain G89.29 [facility] [address] [place] [id number] [place] [address] 59961 2544 Oct, Chronic pain G89.29 [facility] [address] [place] [id number] [place] [address] 07303 2546 Oct, [facility] [address] [place] [id number] [place] [address] 55842- 9911 Sep, Chronic obstructive pulmonary disease, unspecified COPD type J44.9 and Abscess L02.91 [facility] [address] [place] [id number] [place] [address] 02848- 3897 Sep, Chronic pain G89.29 [facility] [address] [place] [address] 00734 2546 Aug, Chronic pain G89.29 [facility] [address] [place] [id number] [place] [address] 81767 2546 Aug, Chronic pain G89.29 [facility] [address] [place] [id number] [place] [address] 63946 2546 Aug, Cutaneous horn L85.8 and Skin tag L91.8 [facility] [address] [place] [id number] [place] [address] 90885- 7322 Jul, [facility] [address] [place] [id number] [place] [address] 36323- 3915 Jul, Hypertriglyceridemia E78.1 [facility] [address] 78712- 8811 07 Jul, 2016 Other chronic pain G89.29 ; Essential hypertension I10 ; 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 ; Hyperlipidemia, unspecified hyperlipidemia type E78.5 and Cutaneous horn L85.8 [facility] [address] 14152- 2492 Jun, Chronic pain G89.29 [facility] [address] [place] [id number] [place] [address] 63690- 7622 May, Chronic pain G89.29 [facility] [address] 83984- 8477 May, [facility] [address] [place] [id number] [place] [address] 33151- 1425 May, Skin infection L08.9 [facility] [address] [place] [id number] [place] [address] 51424- 7202 Apr, Chronic pain G89.29 [facility] [address] [place] [id number] [place] [address] 72432- 9110 Apr, [facility] [address] [place] [id number] [place] [address] 37588- 2541 Apr, Chronic pain G89.29 [facility] [address] 55688- 6889 March, [facility] [address] [place] [id number] [place] [address] 45595- 4204 Feb, Chronic pain G89.29 ; 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 and Hypertriglyceridemia E78.1 [facility] [address] [place] [address]- 5757 07 Feb, 2016 [facility] [address] [place] [id number] [place] [address] 08174- 6057 Jan, [facility] [address] [place] [id number] [place] [address] 38447- 5124 Dec, [facility] [address] [place] [id number] [place] [address] 26064- 0910 Nov, [facility] [address] [place] [id number] [place] [address] 51902- 2056 Oct, [facility] [address] [place] [id number] [place] [address] 11163- 6540 Oct, 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 [facility] [address] [place] [id number] [place] [address] 02424- 5321 Oct, Other chronic pain G89.29 ; Chronic obstructive pulmonary disease, unspecified COPD type J44.9 ; Insomnia, unspecified type G47.00 ; 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 and Essential hypertension I10 [facility] [address] [place] [id number] [place] [address] 33297- 6048 Sep, [facility] [address] [place] [id number] [place] [address] 68165- 4720 Aug, [facility] [address] [place] [id number] [place] [address] 17955- 3211 30 Jul, 2015 [facility] [address] [place] [id number] [place] [address] 01223- 6854 14 Jul, 2015 [facility] [address] [place] [id number] [place] [address] 40316- 1757 14 Jul, 2015 Overweight 278.02 and Hyperinsulinemia 251.1 [facility] [address] [place] [id number] [place] [address] 13338- 8128 03 Jul, 2015 [facility] [address] [place] [id number] [place] [address] 01394- 3834 Jun, Skin tags, multiple acquired 701.9 [facility] [address] [place] [id number] [place] [address] 17640- 4574 Jun, Other chronic pain 338.29 ; Erectile dysfunction 607.84 ; Hyperinsulinemia 251.1 and Hypertension 401.9 [facility] [address] [place] [id number] [place] [address] 84252- 5473 Jun, [facility] [address] 25366- 1517 Jun, [facility] [address] [place] [id number] [place] [address] 35003- 2952 Jun, [facility] [address] 45968- 8254 May, Pure hyperglyceridemia 272.1 [facility] [address] 98892- 2350 May, Pure hyperglyceridemia 272.1 [facility] [address] [place] [id number] [place] [address] 18050- 2723 May, [facility] [address] [place] [id number] [place] [address] 54528- 9138 May, Overgrown toenails 703.8 ; Seborrheic keratosis 702.19 ; Skin tag 701.9 ; Warts, genital 078.11 ; Cramps, extremity 729.82 ; Increased appetite 783.6 and Heat rash 705.1 [facility] [address] [place] [id number] [place] [address] 06026- 2229 May, [facility] [address] [place] [id number] [place] [address] 02240- 5219 Apr, [facility] [address] 11400- 0582 Apr, [facility] [address] [place] [id number] [place] [address] 61444- 1924 March, [facility] [address] 85755- 5722 14 Feb, 2015 [facility] [place] [facility] [address] [id number] [place] [address]- 0807 13 Feb, 2015 [facility] [place] [facility] [address] [id number] [place] [address]- 6522 27 Jan, 2015 [facility] [place] [facility] [address] [id number] [place] [address]- 5893 27 Jan, 2015 [facility] [place] [facility] [address] [id number] [place] [address]- 2199 27 Jan, 2015 [facility] [place] [facility] [address] [id number] [place] [address]- 8287 27 Jan, 2015 [facility] [place] [facility] [address] [id number] [place] [address]- 9838 19 Jan, 2015 [facility] [place] [facility] [address] [facility] [id number] [place] [address]- 0116 19 Jan, 2015 [facility] [place] [facility] [address] [id number] [place] [address]- 7958 16 Jan, 2015 [facility] [place] [facility] [address] [id number] [place] [address]- 6328 16 Jan, 2015 [facility] [place] [facility] [address] [facility] [id number] [place] [address]- 5070 10 Jan, 2015 [facility] [place] [facility] [address] [id number] [place] [address]- 5797 10 Jan, 2015 [facility] [place] [facility] [address] [id number], [place] [address]- 5878 05 Jan, 2015 [facility] [place] [facility] [address] [id number] [place] [address]- 0369 05 Jan, 2015 [facility] [place] [facility] [address] [id number] [place] [address]- 8758 19 Dec, 2014 [facility] [place] [facility] [address] [facility] [id number] [place] [address]- 5865 19 Dec, 2014 [facility] [place] [facility] [address] [id number] [place] [address]- 5172 Dec, 2014 [facility] [place] [facility] [address] [id number] [place] [address]- 1716 Dec, 2014 [facility] [place] [facility] [address] [id number] [place] 6182 Dec, 2014 [facility] [place] [facility] [address] [id number] [place] [address]- 1263 Dec, 2014 [facility] [place] [facility] [address] [id number] [place] [address]- 8610 Dec, 2014 [facility] [place] [facility] [address] [id number] [place] [address]- 2868 Dec, [facility] [place] [facility] [address] [id number] [place] [address]- 1604 Nov, [facility] [place] [facility] [address] [id number] [place] [address]- 8990 Nov, [facility] [place] [facility] [address] [id number] [place] [address]- 5216 Nov, [facility] [place] [facility] [address] [id number] [place] [address]- 8037 Nov, [facility] [place] [facility] [address] [id number] [place] [address]- 7403 Nov, [facility] [place] [facility] [address] [id number], [place] [address]- 8729 Nov, [facility] [place] [facility] [address] [id number] [place] [address]- 7296 Nov, [facility] [place] [facility] [address] [id number] [place] [address]- 6502 Nov, [facility] [place] [facility] [address] [id number] [place] 8658 Oct, [facility] [place] [facility] [address] [id number], [place] [address]- 2757 Oct, [facility] [place] [facility] [address] [id number] [place] 5289 Sep, [facility] [place] [facility] [address] [id number] [place] [address]- 9874 Sep, [facility] [place] [facility] [address] [id number] [place] [address]- 9922 Sep, [facility] [place] [facility] [address] [id number] [place] [address]- 6622 Sep, [facility] [place] [facility] [address] [id number] [place] 6915 Aug, [facility] [place] [facility] [address] [id number] [place] [address]- 3221 Aug, [facility] [place] [facility] [address] [id number] [place] [address]- 6973 Aug, [facility] [place] [facility] [address] [id number] [place] [address]- 5547 Aug, [facility] [place] [facility] [address] [id number], [place] [address]- 3752 Aug, [facility] [place] [facility] [address] [id number] [place] [address]- 1529 Aug, [facility] [place] [facility] [address] [id number], [place] [address]- 5169 Aug, [facility] [place] [facility] [address] [id number], [place] [address]- 0497 Aug, [facility] [place] [facility] [address] [id number], [place] [address]- 5687 Jul, [facility] [place] [facility] [address] [id number] [place] [address]- 4014 Jul, [facility] [place] [facility] [address] [id number] [place] [address]- 3987 Jul, [facility] [place] [facility] [address] [id number] [place] [address]- 9594 Jul, [facility] [place] [facility] [address] [id number] [place] [address]- 0797 Jul, [facility] [place] [facility] [address] [id number] [place] [address]- 6056 Jun, [facility] [place] [facility] [address] [id number] [place] [address]- 1925 Jun, [facility] [place] [facility] [address] [id number] [place] [address]- 1467 Jun, [facility] [place] [facility] [address] [id number] [place] [address]- 3958 Jun, [facility] [place] [facility] [address] [id number] [place] [address]- 2482 Jun, [facility] [place] [facility] [address] [id number] [place] [address]- 1918 Jun, [facility] [place] [facility] [address] [id number] [place] [address]- 6066 May, [facility] [place] [facility] [address] [id number] [place] [address]- 0330 May, [facility] [place] [facility] [address] [id number] [place] [address]- 3394 May, [facility] [place] [facility] [address] [id number] [place] [address]- 8998 May, [facility] [place] [facility] [address] [id number] [place] [address]- 7656 Apr, [facility] [place] [facility] [address] [id number] [place] [address]- 3761 Apr, [facility] [place] [facility] [address] [id number] [place] [address]- 0986 Apr, [facility] [place] [facility] [address] [id number] [place] [address] Apr, [facility] [place] [facility] [address] [id number] [place] [address] Apr, [facility] [place] [facility] [address] [id number] [place] [address] Apr, [facility] [place] [facility] [address] [id number] [place] [address] March, [facility] [place] [facility] [address] [id number] [place] [address] March, [facility] [place] [facility] [address] [id number] [place] [address] March, [facility] [place] [facility] [address] [id number] [place] [address] March, [facility] [place] [facility] [address] [id number] [place] [address] Feb, [facility] [place] [facility] [address] [id number] [place] [address] Feb, [facility] [place] [facility] [address] [id number] [place] [address] Feb, [facility] [place] [facility] [address] [id number] [place] [address] Feb, [facility] [place] [facility] [address] [id number] [place] [address] Feb, [facility] [place] [facility] [address] [id number] [place] [address] Feb, [facility] [place] [facility] [address] [id number] [place] [address] Feb, [facility] [place] [facility] [address] [id number] [place] [address] Feb, [facility] [place] [facility] [address] [id number] [place] [address] Feb, [facility] [place] [facility] [address] [id number] [place] [address] Feb, [facility] [place] [facility] [address] [id number] [place] [address] Feb, [facility] [place] [facility] [address] [id number] [place] [address] Feb, [facility] [place] [facility] [address] [facility] [id number] [place] [address] Feb, [facility] [place] [facility] [address] [facility] [id number] [place] [address] Feb, [facility] [place] [facility] [address] [id number] [place] [address] Feb, [facility] [place] [facility] [address] [facility] [id number] [place] [address] Feb, [facility] [place] [facility] [address] [facility] [id number] [place] [address] Jan, [facility] [place] [facility] [address] [facility] [id number] [place] [address] Jan, [facility] [place] [facility] [address] [facility] [id number] [place] [address] Dec, [facility] [place] [facility] [address] [facility] [id number] [place] [address] Dec, [facility] [place] [facility] [address] [facility] [id number] [place] [address] Dec, [facility] [place] [facility] [address] [facility] [id number] [place] [address] Dec, [facility] [place] [facility] [address] [facility] [id number] [place] [address] Dec, [facility] [place] [facility] [address] [facility] [id number] [place] [address] Dec, [facility] [place] [facility] [address] [facility] [id number] [place] [address] Dec, [facility] [place] [facility] [address] [id number] [place] [address] Nov, [facility] [place] [facility] [address] [id number] [place] [address] Nov, [facility] [place] [facility] [address] [id number] [place] [address] Nov, [facility] [place] [facility] [address] [id number] [place] [address] Nov, [facility] [place] [facility] [address] [id number] [place] [address] Oct, [facility] [place] [facility] [address] [id number] [place] [address] Oct, [facility] [place] [facility] [address] [id number] [place] [address] Sep, [facility] [place] [facility] [address] [id number] [place] [address] Sep, [facility] [place] [facility] [address] [id number] [place] [address] Aug, [facility] [place] [facility] [address] [id number], [place] [address] Aug, [facility] [place] [facility] [address] [id number], [place] [address] Aug, [facility] [place] [facility] [address] [id number], [place] [address] Aug, [facility] [place] [facility] [address] [id number] [place] [address] Aug, [facility] [place] [facility] [address] [id number] [place] [address] Aug, [facility] [place] [facility] [address] [id number] [address] Aug, [facility] [place] [facility] [address] [id number] [place] [address] 15 Aug, 2013 [facility] [address] [id number] [place] [address] Aug, [facility] [address] [id number] [place] [address] Aug, [facility] [address] [id number] [place] [address] Jun, [facility] [place] [facility] [address] [id number] [place] [address] Jun, [facility] [address] [id number] [place] [address] May, [facility] [address] [id number] [place] [address] Apr, [facility] [address] [id number], [place] [address] Apr, [facility] [address] [id number] [place] [address] March, [facility] [address] [id number] [place] [address] Feb, [facility] [address] [id number] [place] [address] Jan, [facility] [address] [id number] [place] [address] Jan, [facility] [place] [facility] [address] [id number], [place] [address] Dec, [facility] [place] [facility] [address] [id number] [place] [address] Dec, [facility] [place] [facility] [address] [id number], [place] [address] Nov, [facility] [place] [facility] [address] [id number], [place] [address] Jul, [facility] [address] [facility] [id number], [place] [address] Jul, [facility] [id number], [place] [address] Jun, [facility] [address] [facility] [id number], [place] [address] May, [facility] [id number], [place] [address] May, [facility] [address] [facility] [id number], [place] [address] May, [facility] [id number] May, [facility] [id number], [place] [address] May, [facility] [id number], [place] [address] May, [facility] [id number], [place] [address] May, [facility] [id number], [place] [address] Apr, [facility] [id number], [place] [address] Apr, [facility] [id number], [place] [address] Apr, [facility] [address] [id number], [place] [address] Apr, IMMUNIZATIONS No Known Immunizations SOCIAL HISTORY Never Assessed REASON FOR VISIT Controlled Med Refill 04/01/18 PLAN OF CARE VITAL SIGNS MEDICATIONS Medication Instructions Dosage Frequency Start Date End Date Duration Status Hydrocodone-Acetaminophen 10-325 MG Orally 4 times a day 1 tablet as needed for pain 6h Feb, 28 days Active RESULTS No Results PROCEDURES No Known procedures INSTRUCTIONS MEDICATIONS ADMINISTERED No Known Medications MEDICAL (GENERAL) HISTORY Type Description Date Medical History hypogonadism Medical History hyperlipidemia Medical History pre-diabetic Medical History chronic pain Medical History COPD Surgical History skin cancer 1999 Hospitalization History surgery Hospitalization History MRSA infection 05/2015
--- OUTSIDE RECORDS SUMMARY | 2018-10-30 16:50 | XMS REPORT ---
Author Author JOSÉ LUIS RODRÍGUEZ Organization [facility] Address [address] [place] [address] Care Team Providers Care Correspondence Specialist Name Role Phone JOSÉ LUIS RODRÍGUEZ Unavailable PROBLEMS Type Condition ICD9-CM Code VEP44-YV Code Onset Dates Condition Status SNOMED Code Problem Hypertriglyceridemia E78.1 Active 675841577 Problem 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 Active 84304041 Problem Family history of diabetes mellitus Z83.3 Active 443385122 Problem History of MRSA infection Z86.14 Active 070913813 Problem Chronic pain G89.29 Active 97075241 Problem Dysthymia F34.1 Active 79405796 Problem Insomnia, unspecified type G47.00 Active 309791888 Problem Chronic obstructive pulmonary disease, unspecified COPD type J44.9 Active 63927056 Problem Osteoarthritis M19.90 Active 279880486 Problem Primary insomnia F51.01 Active 8530184 Problem Essential hypertension I10 Active 80675396 ALLERGIES No Information ENCOUNTERS Encounter Location Date Diagnosis [place] [id number] [address] May, Dysthymia F34.1 ; Chronic obstructive pulmonary disease, unspecified COPD type J44.9 ; Chronic pain G89.29 ; Insomnia, unspecified type G47.00 ; BMI 40.0-44.9, adult Z68.41 and Other seborrheic keratosis L82.1 [facility] [id number] [address] May, Chronic pain G89.29 and Insomnia, unspecified type G47.00 [facility] [address] [address] Apr, Hypertriglyceridemia E78.1 [facility] [id number] [address] Apr, Chronic pain G89.29 and Insomnia, unspecified type G47.00 [place] [id number] [place] [address] 87059- 3545 15 Apr, 2018 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 ; Hypertriglyceridemia E78.1 and Fatigue, unspecified type R53.83 [place] [id number] [place] [address] 14143- 7038 13 Apr, 2018 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 ; Chronic pain G89.29 ; Primary insomnia F51.01 ; Chronic obstructive pulmonary disease, unspecified COPD type J44.9 ; Dysthymia F34.1 ; Hypertriglyceridemia E78.1 ; Fatigue, unspecified type R53.83 and Rash R21 [place] [address] [address] March, Chronic pain G89.29 and Insomnia, unspecified type G47.00 [place] [address] [address]- [address] March, Insomnia, unspecified type G47.00 [place] [address] 17497- 4351 Feb, Chronic pain G89.29 [place] [address] 59681- 0394 Feb, Chronic pain G89.29 [place] [id number] [place] [address] 83312- 5511 Jan, Chronic pain G89.29 [place] [address] 9[address]87- 6793 Dec, Chronic pain G89.29 [place] [address] 60135- 1231 Nov, Chronic pain G89.29 and Insomnia, unspecified type G47.00 [place] [id number] [place] [address] 97594- 2006 Oct, Insomnia, unspecified type G47.00 ; Chronic pain G89.29 and Colon cancer screening Z12.11 [facility] [address] [address] Oct, Chronic pain G89.29 [facility] [id number] [place] [address] 97663- 9795 Sep, Chronic pain G89.29 and Insomnia, unspecified type G47.00 [facility] [id number] [place] [address] 47081- 4985 Sep, Chronic pain G89.29 [facility] [id number] [place] [address] 28132- 6158 Sep, [facility] [id number] [place] [address] 09245- 7421 Aug, Medicare welcome exam Z00.00 ; Encounter for immunization Z23 ; Colon cancer screening Z12.11 and Encounter for screening for lung cancer Z12.2 [facility] [id number] [place] [address] 89021- 3548 Aug, [facility] [id number] [place] [address] 86179- 8675 Aug, Chronic pain G89.29 and Insomnia, unspecified type G47.00 [place] [id number] [place] [address] 06453- 2772 Aug, Hypertriglyceridemia E78.1 [facility] [id number] [place] [address] 44956- 7160 Jul, Chronic pain G89.29 and Insomnia, unspecified type G47.00 [facility] [id number] [place] [address] 65288- 8477 Jun, Hypertriglyceridemia E78.1 [facility] [id number] [place] [address] 53343- 3466 Jun, Chronic pain G89.29 and Insomnia, unspecified type G47.00 [facility] [id number] [place] [address] 15962- 2001 Jun, [facility] [id number] [place] [address] 29696- 9211 Jun, [facility] [id number] [place] [address] 14316- 0585 May, 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 ; Chronic pain G89.29 ; Insomnia, unspecified type G47.00 and Rash R21 [facility] [address] 70702- 8744 May, Chronic pain G89.29 [facility] [address] 37547- 1070 May, Hypertriglyceridemia E78.1 [facility] [id number] [place] [address] 93960- 1367 Apr, Chronic pain G89.29 [facility] [address] 30861- 8552 Apr, Chronic pain G89.29 ; 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 ; Hypertriglyceridemia E78.1 and Primary insomnia F51.01 [facility] [id number] [place] [address] 72430- 2644 March, Chronic pain G89.29 [facility] [id number] [place] [address] 57665- 2543 March, Chronic pain G89.29 [facility] [id number] [place] [address] 70955- 8402 Feb, [facility] [id number] [place] [address] 71680- 5960 Feb, Chronic pain G89.29 [facility] [id number] [place] [address] 42932- 5059 Jan, Chronic pain G89.29 [facility] [id number] [place] [address] 73249- 7550 Dec, Chronic pain G89.29 [facility] [id number] [place] [address] 20054- 7903 Dec, [facility] [id number] [place] [address] 94556- 4646 Nov, Hypertriglyceridemia E78.1 [facility] [id number] [place] [address] 83703- 3269 Nov, [facility] [id number] [place] [address] 75617- 6465 Nov, Chronic pain G89.29 ; Hypertriglyceridemia E78.1 and Chronic obstructive pulmonary disease, unspecified COPD type J44.9 [facility] [address] 18767- 5319 Nov, Chronic pain G89.29 [facility] [id number] [place] [address] 31524- 9114 Oct, Chronic pain G89.29 [facility] [id number] [place] [address] 89859- 1720 Oct, [facility] [id number] [place] [address] 36424- 1639 Sep, Chronic obstructive pulmonary disease, unspecified COPD type J44.9 and Abscess L02.91 [facility] [id number] [place] [address] 50078- 1260 Sep, Chronic pain G89.29 [facility] [id number] [place] [address] 12513- 4184 Aug, Chronic pain G89.29 [facility] [id number] [place] [address] 00974- 4385 Aug, Chronic pain G89.29 [facility] [id number] [place] [address] 64636- 2549 Aug, Cutaneous horn L85.8 and Skin tag L91.8 [facility] [id number] [place] [address] 78168- 5810 Jul, [facility] [id number] [place] [address] 53946- 4844 Jul, Hypertriglyceridemia E78.1 [facility] [id number] [place] [address] 12320- 6046 07 Jul, 2016 Other chronic pain G89.29 ; Essential hypertension I10 ; 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 ; Hyperlipidemia, unspecified hyperlipidemia type E78.5 and Cutaneous horn L85.8 [facility] [id number] [place] [address] 15462- 1094 Jun, Chronic pain G89.29 [facility] [address] 67298- 2657 May, Chronic pain G89.29 [facility] [id number] [place] [address] 74446- 1860 May, [facility] [id number] [place] [address] 99032- 8660 May, Skin infection L08.9 [facility] [id number] [place] [address] 02749- 6979 Apr, Chronic pain G89.29 [facility] [id number] [place] [address] 23887- 4133 Apr, [facility] [id number] [place] [address] 82645- 4547 Apr, Chronic pain G89.29 [facility] [id number] [place] [address] 31484- 5682 March, [facility] [id number] [place] [address] 98709- 7792 Feb, Chronic pain G89.29 ; 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 and Hypertriglyceridemia E78.1 [facility] [id number] [place] [address] 57674- 2716 Feb, [facility] [address] [place] [address]- 2519 10 Jan, 2016 [facility] [id number] [place] [address] 14267- 8188 Dec, [facility] [id number] [place] [address] 08874- 1240 Nov, [facility] [address] 71641- 8616 Oct, [facility] [address] 77595- 5082 Oct, 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 [facility] [address] 544840- 8813 Oct, Other chronic pain G89.29 ; Chronic obstructive pulmonary disease, unspecified COPD type J44.9 ; Insomnia, unspecified type G47.00 ; 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 and Essential hypertension I10 [facility] [id number] [place] [address] 22471- 3635 Sep, [facility] [id number] [place] [address] 18447- 2595 Aug, [facility] [id number] [place] [address] 10745- 5147 30 Jul, 2015 [facility] [id number] [place] [address] 13500- 0387 Jul, [facility] [id number] [place] [address] 77537- 0807 14 Jul, 2015 Overweight 278.02 and Hyperinsulinemia 251.1 [facility] [id number] [place] [address] 85879- 4964 Jul, [facility] [id number] [place] [address] 84002- 5801 Jun, Skin tags, multiple acquired 701.9 [facility] [id number] [place] [address] 57883- 4378 Jun, Other chronic pain 338.29 ; Erectile dysfunction 607.84 ; Hyperinsulinemia 251.1 and Hypertension 401.9 [facility] [id number] [place] [address] 53214- 9399 Jun, [facility] [id number] [place] [address] 30147- 5700 Jun, [facility] [address] 59059- 5053 Jun, [facility] [address] 79696- 6140 May, Pure hyperglyceridemia 272.1 [facility] [address] 12942- 9350 May, Pure hyperglyceridemia 272.1 [facility] [address] 31399- 8914 May, [facility] [address] 83451- 2273 May, Overgrown toenails 703.8 ; Seborrheic keratosis 702.19 ; Skin tag 701.9 ; Warts, genital 078.11 ; Cramps, extremity 729.82 ; Increased appetite 783.6 and Heat rash 705.1 [facility] [id number] [place] [address] 01479- 0699 May, [facility] [id number] [place] [address] 04585- 0540 Apr, [facility] [id number] [place] [address] 75788- 7523 Apr, [facility] [address] 57529- 5883 March, [facility] [id number] [place] [address] 16958- 9535 Feb, [facility] [address] 75829- 8021 13 Feb, 2015 [facility] [place] [facility] [address] [id number] [place] [address]- 7255 27 Jan, 2015 [facility] [place] [facility] [address] [id number] [place] [address]- 1835 27 Jan, 2015 [facility] [place] [facility] [address] [id number] [place] [address]- 2427 27 Jan, 2015 [facility] [place] [facility] [address] [id number] [place] [address]- 5813 27 Jan, 2015 [facility] [place] [facility] [address] [id number] [place] [address]- 8974 Jan, [facility] [place] [facility] [address] [id number] [place] [address]- 2377 19 Jan, 2015 [facility] [place] [facility] [address] [facility] [id number] [place] [address]- 2466 16 Jan, 2015 [facility] [place] [facility] [address] [facility] [id number] [place] [address]- 2910 16 Jan, 2015 [facility] [place] [facility] [address] [id number] [place] [address]- 2542 10 Jan, 2015 [facility] [place] [facility] [address] [facility] [id number] [place] [address]- 4330 10 Jan, 2015 [facility] [place] [facility] [address] [id number] [place] [address]- 4782 05 Jan, 2015 [facility] [place] [facility] [address] [facility] [id number] [place] [address]- 5539 05 Jan, 2015 [facility] [place] [facility] [address] [id number] [place] [address]- 7334 Dec, [facility] [place] [facility] [address] [id number] [place] [address]- 2441 Dec, [facility] [place] [facility] [address] [facility] [id number] [place] [address]- 8481 Dec, [facility] [place] [facility] [address] [id number] [place] [address]- 9540 Dec, [facility] [place] [facility] [address] [id number] [place] [address]- 2484 Dec, 2014 [facility] [place] [facility] [address] [id number] [place] 4825 Dec, [facility] [place] [facility] [address] [id number] [place] [address]- 1189 Dec, [facility] [place] [facility] [address] [id number] [place] [address]- 8541 Dec, [facility] [place] [facility] [address] [id number] [place] [address]- 3543 Nov, [facility] [place] [facility] [address] [id number] [place] [address]- 3153 Nov, [facility] [place] [facility] [address] [id number] [place] [address]- 6272 Nov, [facility] [place] [facility] [address] [id number] [place] [address]- 2758 Nov, [facility] [place] [facility] [address] [id number] [place] [address]- 7628 Nov, [facility] [place] [facility] [address] [id number] [place] [address]- 1895 Nov, [facility] [place] [facility] [address] [id number] [address]- 4488 Nov, [facility] [place] [facility] [address] [id number] [place] [address]- 0239 Nov, [facility] [place] [facility] [address] [id number] [place] 4158 Oct, [facility] [place] [facility] [address] [id number], [place] [address]- 8890 Oct, [facility] [place] [facility] [address] [id number], [place] [address]- 8773 Sep, [facility] [place] [facility] [address] [id number] [place] [address]- 6262 Sep, [facility] [place] [facility] [address] [id number] [place] [address]- 2518 Sep, [facility] [place] [facility] [address] [id number] [place] [address]- 9043 Sep, [facility] [place] [facility] [address] [id number] [place] [address]- 2440 Aug, [facility] [place] [facility] [address] [id number] [place] [address]- 1914 Aug, [facility] [place] [facility] [address] [id number] [place] [address]- 2605 Aug, [facility] [place] [facility] [address] [id number] [place] [address]- 5010 Aug, [facility] [place] [facility] [address] [id number] [place] [address]- 5865 Aug, [facility] [place] [facility] [address] [id number] [place] [address]- 3631 Aug, [facility] [place] [facility] [address] [id number] [place] [address]- 9399 Aug, [facility] [place] [facility] [address] [id number], [place] [address]- 1038 Aug, [facility] [place] [facility] [address] [id number], [place] [address]- 7321 25 Jul, 2014 [facility] [place] [facility] [address] [id number] [place] [address]- 1887 17 Jul, 2014 [facility] [place] [facility] [address] [id number] [place] [address]- 9530 17 Jul, 2014 [facility] [place] [facility] [address] [id number] [place] [address]- 9190 05 Sep, 2013 [facility] [place] [facility] [address] [id number] [place] [address]- 1037 Jul, [facility] [place] [facility] [address] [id number] [place] [address]- 7807 Jun, [facility] [place] [facility] [address] [id number] [place] [address]- 6103 Jun, [facility] [place] [facility] [address] [id number] [place] [address]- 2495 Jun, [facility] [place] [facility] [address] [id number] [place] [address]- 0109 Jun, [facility] [place] [facility] [address] [id number] [place] [address]- 9740 Jun, [facility] [place] [facility] [address] [id number] [place] [address]- 0987 Jun, [facility] [place] [facility] [address] [id number] [place] [address]- 0864 May, [facility] [place] [facility] [address] [id number] [place] [address]- 9381 May, [facility] [place] [facility] [address] [id number] [place] [address]- 8909 May, [facility] [place] [facility] [address] [id number] [place] [address]- 4283 May, [facility] [place] [facility] [address] [id number] [place] [address]- 8469 Apr, [facility] [place] [facility] [address] [id number] [place] [address]- 0421 Apr, [facility] [place] [facility] [address] [id number] [place] [address]- 0418 Apr, [facility] [place] [facility] [address] [id number] [place] [address]- 5103 Apr, [facility] [place] [facility] [address] [id number] [place] [address]- 7716 Apr, [facility] [place] [facility] [address] [id number] [place] [address]- 1138 Apr, [facility] [place] [facility] [address] [id number] [place] [address]- 2685 March, [facility] [place] [facility] [address] [id number] [place] [address]- 8269 March, [facility] [place] [facility] [address] [id number] [place] [address]- 6699 March, [facility] [place] [facility] [address] [id number] [place] [address]- 5881 March, [facility] [place] [facility] [address] [id number] [place] [address]- 7821 Feb, [facility] [place] [facility] [address] [id number] [place] [address]- 5180 Feb, [facility] [place] [facility] [address] [id number] [place] [address]- 4926 Feb, [facility] [place] [facility] [address] [id number] [place] [address]- 4431 Feb, [facility] [place] [facility] [address] [id number] [place] [address]- 1592 Feb, [facility] [place] [facility] [address] [id number] [place] [address]- 8554 Feb, [facility] [place] [facility] [address] [id number] [place] [address]- 4690 Feb, [facility] [place] [facility] [address] [id number] [place] [address]- 9330 Feb, [facility] [place] [facility] [address] [id number] [place] [address]- 1237 Feb, [facility] [place] [facility] [address] [id number] [place] [address] 2010 Feb, [facility] [place] [facility] [address] [id number] [place] [address] Feb, [facility] [place] [facility] [address] [id number] [place] [address] Feb, [facility] [place] [facility] [address] [facility] [id number] [place] [address] Feb, [facility] [place] [facility] [address] [facility] [id number] [place] [address] Feb, [facility] [place] [facility] [address] [id number] [place] [address] Feb, [facility] [place] [facility] [address] [id number] [place] [address] Feb, [facility] [place] [facility] [address] [facility] [id number] [place] [address] Jan, [facility] [place] [facility] [address] [facility] [id number] [place] [address] Jan, [facility] [place] [facility] [address] [facility] [id number] [place] [address] Dec, [facility] [place] [facility] [address] [facility] [id number] [place] [address] Dec, [facility] [place] [facility] [address] [facility] [id number] [place] [address] 9[address] Dec, [facility] [place] [facility] [address] [facility] [id number] [place] [address] Dec, [facility] [place] [facility] [address] [facility] [id number] [place] [address]34 Dec, [facility] [place] [facility] [address] [facility] [id number] [place] [address] Dec, [facility] [place] [facility] [address] [facility] [id number] [place] [address] Dec, [facility] [place] [facility] [address] [facility] [id number] [place] [address] Nov, [facility] [place] [facility] [address] [id number] [place] [address] Nov, [facility] [place] [facility] [address] [id number] [place] [address]98 Nov, [facility] [place] [facility] [address] [id number] [place] [address] Nov, [facility] [place] [facility] [address] [id number] [place] [address] Oct, [facility] [place] [facility] [address] [id number] [place] [address] 1992 Oct, [facility] [place] [facility] [address] [id number] [place] [address] Sep, [facility] [place] [facility] [address] [id number] [place] [address] Sep, [facility] [place] [facility] [address] [id number] [place] [address] Aug, [facility] [place] [facility] [address] [id number] [place] [address] Aug, [facility] [place] [facility] [address] [id number] [address] Aug, [facility] [place] [facility] [address] [id number], [place] [address] Aug, [facility] [place] [facility] [address] [id number], [place] [address] Aug, [facility] [place] [facility] [address] [id number] [place] [address] 59[address] Aug, [facility] [place] [facility] [address] [id number] [place] [address] Aug, [facility] [place] [facility] [address] [id number] [place] [address] Aug, [facility] [place] [facility] [address] [id number] [place] [address] 07 Aug, 2013 [facility] [address] [id number] [place] [address] Aug, [facility] [address] [id number] [place] [address] Jun, [facility] [address] [id number] [place] [address] Jun, [facility] [address] [id number] [place] [address] May, [facility] [address] [id number] [place] [address] Apr, [facility] [address] [id number] [place] [address] Apr, [facility] [address] [id number] [place] [address] March, [facility] [address] [id number] [place] [address] Feb, [facility] [address] [id number] [place] [address] Jan, [facility] [address] [id number] [place] [address] Jan, [facility] [address] [id number] [place] [address] Dec, [facility] [place] [facility] [address] [id number], [place] [address] Dec, [facility] [place] [facility] [address] [id number] [place] [address] Nov, [facility] [place] [facility] [address] [id number], [place] [address] Jul, [facility] [place] [facility] [address] [id number], [place] [address] Jul, [facility] [address] [facility] [id number] [address] Jun, [facility] [address] [facility] [id number] [address] May, [facility] [address] [facility] [id number] [address] May, [facility] [address] [facility] [id number], [place] [address] May, [facility] [address] [facility] [id number] [address] May, [facility] [address] [facility] [id number] [address] May, [facility] [id number] [address] May, [facility] [id number] [address] May, [facility] [id number] [address] Apr, [facility] [address] [address] Apr, [facility] [id number] [address] Apr, [facility] [address] [id number] [address] Apr, IMMUNIZATIONS No Known Immunizations SOCIAL HISTORY Never Assessed REASON FOR VISIT Controlled Med Refill 03/04/18 PLAN OF CARE VITAL SIGNS MEDICATIONS Medication [...]
--- OUTSIDE RECORDS SUMMARY | 2018-10-30 16:51 | XMS REPORT ---
Author Author JOSÉ LUIS RODRÍGUEZ [facility] eClinicalWorks Address Unknown Phone Unavailable Care Team Providers Care Profile Shaper Operator Name Role Phone JOSÉ LUIS RODRÍGUEZ CP Unavailable Allergies, Adverse Reactions, Alerts Substance Reaction Event Type N.K.D.A. Info Not Available Non Drug Allergy Problems Problem Type Condition Code Onset Dates Condition Status Problem Persistent disorder of initiating or maintaining sleep 307.42 Active Problem Umbilical hernia without mention of obstruction or gangrene 553.1 Active Problem Generalized osteoarthrosis, 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.04 Active Problem Hypertriglyceridemia E78.1 Active Problem 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 Active Problem Chronic pain G89.29 Active Problem History of MRSA infection Z86.14 Active Problem Family history of diabetes mellitus V18.0 Active Problem Family history of diabetes mellitus Z83.3 Active Problem Osteoarthritis M19.90 Active Assessment 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 Active Assessment Essential hypertension I10 Active Assessment Cutaneous horn L85.8 Active Assessment Hyperlipidemia, unspecified hyperlipidemia type E78.5 Active Problem Chronic airway obstruction, not elsewhere classified 496 Active Problem Family history of malignant neoplasm, prostate V16.42 Active Assessment Other chronic pain G89.29 Active Problem Family history of malignant neoplasm of gastrointestinal tract V16.0 Active Problem Essential hypertension, benign 401.1 Active Problem Other chronic pain 338.29 Active Medications Medication Code System Code Instructions Start Date End Date Status Dosage Oxygen NDC 0 N/A 1 1/2 l at hs Once a day Nov 15, 2015 as directed Stiolto Respimat FOR[facility] NAMED [facility] [address]-05 2.5-2.5 MCG/ACT Inhalation Once a day 2 samples given Nov 15, 2015 2 puffs Hydrocodone-Acetaminophen FORMERLY NAMED [facility] [address]-69 10-325 MG Orally 4 times a day February 15, 2015 1 tablet as needed for pain Symbicort FORMERLY NAMED [facility] [id number] 160-4.5 MCG/ACT INHALE TWO PUFFS BY MOUTH TWICE DAILY IN THE MORNING AND EVENING MetFORMIN HCl ER FORMER[facility] NAMED [facility] [address]-03 500 MG Orally twice a day 2 tablets Viagra FORMER[facility] NAMED [facility] 74281926791 100 MG Orally Once a day prn 1 tablet as needed Lipitor FORMER[facility] NAMED [facility] [address]-86 40 mg Orally Once a day Nov 21, 2015 1 tablet Procedures Procedure Coding System Code Date LIPID PANEL CPT-4 97606 Aug 06, 2016 COMPREHEN METABOLIC PANEL CPT-4 88974 Aug 06, 2016 ASSAY OF INSULIN CPT-4 21021 Aug 06, 2016 VENIPUNCT, ROUTINE* CPT-4 32311 Aug 06, 2016 GLYCATED HEMOGLOBIN TEST CPT-4 05378 Aug 06, 2016 Office Visit, Est Pt., Level 3 CPT-4 60262 Aug 06, 2016 Vital Signs Date/Time: Aug 06, 2016 Cardiac Monitoring Heart Rate 82 bpm Weight 236.0 lbs Height 66 in BMI 38.09 Index Blood Pressure Diastolic 86 mmHg Blood Pressure Systolic 148 mmHg Results Name Result Date Reference Range Unit Abnormality Flag CMP ----Calcium, Serum 9.0 26266320 8.6-10.2 mg/dL ----Carbon Dioxide, Total 25 22890222 18-29 mmol/L ----ALT (SGPT) 38 71287389 0-44 IU/L ----Creatinine, Serum 0.84 27115520 0.76-1.27 mg/dL ----AST (SGOT) 29 04613461 0-40 IU/L ----eGFR If NonAfricn Am 93 06188169 >59 mL/min/1.73 ----Alkaline Phosphatase, S 53 34086881 39-117 IU/L ----eGFR If Africn Am 108 88946547 >59 mL/min/1.73 ----Bilirubin, Total 0.5 71232484 0.0-1.2 mg/dL ----BUN/Creatinine Ratio 21 [id number] 10-22 ----A/G Ratio 1.3 06065051 1.1-2.5 ----Sodium, Serum 138 80854192 134-144 mmol/L ----Globulin, Total 3.0 09097276 1.5-4.5 g/dL ----Potassium, Serum 4.6 52761685 3.5-5.2 mmol/L ----Glucose, Serum 104 73616056 65-99 mg/dL H ----Chloride, Serum 98 20160806 97-108 mmol/L ----Albumin, Serum 4.0 20160806 3.6-4.8 g/dL ----BUN 18 20160806 8-27 mg/dL ----Protein, Total, Serum 7.0 20160806 6.0-8.5 g/dL A1C (IN HOUSE) ----Exp date [id number] ----A1C IN HOUSE 5.9 20160806 4.3 - 5.6 % ----Lot [id number] ----Previous A1c 5.5 20160806 INSULIN LEVEL ----Insulin 33.6 20160806 2.6-24.9 uIU/mL H LIPID PANEL ----Triglycerides 780 20160806 0-149 mg/dL HH ----HDL Cholesterol 26 20160806 >39 mg/dL L ----Cholesterol, Total 263 20160806 100-199 mg/dL H ROUTINE VENIPUNCTURE Summary Purpose eClinicalWorks Submission
--- OUTSIDE RECORDS SUMMARY | 2018-10-30 16:51 | XMS REPORT ---
Author Author JOSÉ LUIS RODRÍGUEZ Organization [facility] Address [address] [place] [address] Care Team Providers Care Radiologic Technologist Name Role Phone JOSÉ LUIS RODRÍGUEZ Unavailable PROBLEMS Type Condition ICD9-CM Code DNP72-ZG Code Onset Dates Condition Status SNOMED Code Problem Hypertriglyceridemia E78.1 Active 005234235 Problem 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 Active 27222998 Problem Family history of diabetes mellitus Z83.3 Active 423004627 Problem History of MRSA infection Z86.14 Active 491317819 Problem Chronic pain G89.29 Active 45324039 Problem Dysthymia F34.1 Active 05894543 Problem Insomnia, unspecified type G47.00 Active 129049957 Problem Chronic obstructive pulmonary disease, unspecified COPD type J44.9 Active 30437479 Problem Osteoarthritis M19.90 Active 542781383 Problem Primary insomnia F51.01 Active 6846446 Problem Essential hypertension I10 Active 84768871 ALLERGIES No Information ENCOUNTERS Encounter Location Date Diagnosis [facility] [id number] [place] [address] 70738- 0216 May, [facility] [id number] [place] [address] 46586- 0481 Apr, Hypertriglyceridemia E78.1 [facility] [address] 54023- 2608 21 Apr, 2018 Chronic pain G89.29 and Insomnia, unspecified type G47.00 [place] [address] 31450- 5277 15 Apr, 2018 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 ; Hypertriglyceridemia E78.1 and Fatigue, unspecified type R53.83 [place] [facility] [address] 91934- 4537 13 Apr, 2018 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 ; Chronic pain G89.29 ; Primary insomnia F51.01 ; Chronic obstructive pulmonary disease, unspecified COPD type J44.9 ; Dysthymia F34.1 ; Hypertriglyceridemia E78.1 ; Fatigue, unspecified type R53.83 and Rash R21 [place] [address] 31185- 9132 March, Chronic pain G89.29 and Insomnia, unspecified type G47.00 [place] [address] 49206- 7017 March, Insomnia, unspecified type G47.00 [place] [address] 72397- 9540 Feb, Chronic pain G89.29 [place] [address] 80835- 1960 Feb, Chronic pain G89.29 [place] [address] 38433- 2120 Jan, Chronic pain G89.29 [facility] [address] 64510- 2917 Dec, Chronic pain G89.29 [facility] [address] 88821- 3916 Nov, Chronic pain G89.29 and Insomnia, unspecified type G47.00 [facility] [id number] [place] [address] 13666- 4814 Oct, Insomnia, unspecified type G47.00 ; Chronic pain G89.29 and Colon cancer screening Z12.11 [facility] [place] [id number] [place] [address] 01856- 4689 Oct, Chronic pain G89.29 [facility] [place] [id number] [place] [address] 78748- 6720 Sep, Chronic pain G89.29 and Insomnia, unspecified type G47.00 [facility] [facility] [address] [place] [address]- 1352 Sep, Chronic pain G89.29 [facility] [id number] [place] [address] 46156- 6380 Sep, [facility] [id number] [place] [address] 03939- 5798 Aug, Medicare welcome exam Z00.00 ; Encounter for immunization Z23 ; Colon cancer screening Z12.11 and Encounter for screening for lung cancer Z12.2 [facility] [id number] [place] [address] 88242- 8539 Aug, [place] [id number] [place] [address] 69283- 2591 Aug, Chronic pain G89.29 and Insomnia, unspecified type G47.00 [place] [id number] [place] [address] 98536- 8955 Aug, Hypertriglyceridemia E78.1 [place] [id number] [place] [address] 72116- 2488 Jul, Chronic pain G89.29 and Insomnia, unspecified type G47.00 [facility] [id number] [place] [address] 53496- 7137 Jun, Hypertriglyceridemia E78.1 [facility] [id number] [place] [address] 03724- 4284 Jun, Chronic pain G89.29 and Insomnia, unspecified type G47.00 [place] [id number] [place] [address] 54021- 5302 Jun, [place] [id number] [place] [address] 49419- 4311 Jun, [place] [id number] [place] [address] 91484- 6244 May, 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 ; Chronic pain G89.29 ; Insomnia, unspecified type G47.00 and Rash R21 [facility] [id number] [place] [address] 13453- 8434 May, Chronic pain G89.29 [facility] [id number] [place] [address] 73029- 3676 May, Hypertriglyceridemia E78.1 [facility] [id number] [place] [address] 83051- 9928 Apr, Chronic pain G89.29 [facility] [address] 00487- 8961 Apr, Chronic pain G89.29 ; 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 ; Hypertriglyceridemia E78.1 and Primary insomnia F51.01 [facility] [id number] [place] [address] 45578- 8087 March, Chronic pain G89.29 [facility] [id number] [place] [address] 90132- 5122 March, Chronic pain G89.29 [facility] [id number] [place] [address] 54965- 7903 Feb, [facility] [id number] [place] [address] 52267- 1829 Feb, Chronic pain G89.29 [facility] [id number] [place] [address] 29085- 9208 Jan, Chronic pain G89.29 [facility] [id number] [place] [address] 72241- 3994 Dec, Chronic pain G89.29 [facility] [id number] [place] [address] 33367- 9038 Dec, [facility] [id number] [place] [address] 81308- 8522 Nov, Hypertriglyceridemia E78.1 [facility] [id number] [place] [address] 65696- 5883 Nov, [facility] [id number] [place] [address] 47570- 5516 Nov, Chronic pain G89.29 ; Hypertriglyceridemia E78.1 and Chronic obstructive pulmonary disease, unspecified COPD type J44.9 [place] [id number] [place] [address] 14786- 3383 Nov, Chronic pain G89.29 [place] [address] 33920- 7555 Oct, Chronic pain G89.29 [place] [address] 99379- 3990 Oct, [place] [address] 37215- 0089 Sep, Chronic obstructive pulmonary disease, unspecified COPD type J44.9 and Abscess L02.91 [place] [address] 45554- 3900 Sep, Chronic pain G89.29 [place] [address] 67281- 0080 Aug, Chronic pain G89.29 [place] [address] 66478- 3060 Aug, Chronic pain G89.29 [place] [id number] [place] [address] 33365- 3797 Aug, Cutaneous horn L85.8 and Skin tag L91.8 [place] [id number] [place] [address] 85191- 1637 Jul, [place] [address] 80701- 2415 09 Jul, 2016 Hypertriglyceridemia E78.1 [place] [id number] [place] [address] 38077- 4739 07 Jul, 2016 Other chronic pain G89.29 ; Essential hypertension I10 ; 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 ; Hyperlipidemia, unspecified hyperlipidemia type E78.5 and Cutaneous horn L85.8 [facility] [address] [place] [address] 82517 2542 Jun, Chronic pain G89.29 [facility] [id number] [place] [address] 09223 2546 May, Chronic pain G89.29 [facility] [id number] [place] [address] 73683 2546 May, [facility] [id number] [place] [address] 19830 2546 May, Skin infection L08.9 [facility] [id number] [place] [address] 37539- 1536 Apr, Chronic pain G89.29 [facility] [id number] [place] [address] 96376- 5317 Apr, [facility] [id number] [place] [address] 84452- 1979 Apr, Chronic pain G89.29 [facility] [id number] [place] [address] 33066- 6156 March, [facility] [id number] [place] [address] 12796 2549 Feb, Chronic pain G89.29 ; 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 and Hypertriglyceridemia E78.1 [facility] [address] [place] [address] 94485 2546 Feb, [facility] [id number] [place] [address] 97615 2548 Jan, [facility] [id number] [place] [address] 37128- 8116 Dec, [facility] [id number] [place] [address] 73471- 2543 Nov, [facility] [id number] [place] [address] 877609- 2203 Oct, [facility] [id number] [place] [address] 50100- 4508 Oct, 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 [facility] [address] 29929- 3160 Oct, Other chronic pain G89.29 ; Chronic obstructive pulmonary disease, unspecified COPD type J44.9 ; Insomnia, unspecified type G47.00 ; 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 and Essential hypertension I10 [facility] [address] 68168- 6776 Sep, [facility] [address] 79726- 0992 Aug, [facility] [address] 45116- 6145 30 Jul, 2015 [facility] [address] 36847- 0590 Jul, [facility] [address] 97845- 1126 Jul, Overweight 278.02 and Hyperinsulinemia 251.1 [facility] [address] 42024- 7159 Jul, [facility] [address] 63138- 5301 Jun, Skin tags, multiple acquired 701.9 [facility] [address] 54913- 1926 Jun, Other chronic pain 338.29 ; Erectile dysfunction 607.84 ; Hyperinsulinemia 251.1 and Hypertension 401.9 [facility] [address] 55525- 4690 Jun, [facility] [address] 35723- 3661 Jun, [facility] [address] 30792- 4364 Jun, [facility] [address] [address]- 1391 May, Pure hyperglyceridemia 272.1 [facility] [id number] [place] [address] 09290- 4021 May, Pure hyperglyceridemia 272.1 [facility] [id number] [place] [address] 745517- 1409 May, [facility] [id number] [place] [address] 426963- 2811 May, Overgrown toenails 703.8 ; Seborrheic keratosis 702.19 ; Skin tag 701.9 ; Warts, genital 078.11 ; Cramps, extremity 729.82 ; Increased appetite 783.6 and Heat rash 705.1 [facility] [id number] [place] [address] 97528- 9972 May, [facility] [id number] [place] [address] 91915- 2354 Apr, [facility] [id number] [place] [address] 739453- 7034 Apr, [facility] [id number] [place] [address] 29743- 5509 March, [facility] [address] [place] [address] 07967- 0781 Feb, [facility] [id number] [place] [address] [id number]- 8326 Feb, [facility] [id number] [place] [address] 21929- 6291 Jan, [facility] [id number] [place] [address] 413478- 1535 Jan, [facility] [address] 2443 Jan, [facility] [place] [facility] [address] [id number] [place] [address]- 9359 Jan, 2014 [facility] [place] [facility] [address] [id number] [place] [address]- 7824 Jan, 2014 [facility] [place] [facility] [address] [id number] [place] [address]- 9877 Jan, 2014 [facility] [place] [facility] [address] [id number] [place] [address]- 9179 16 Jan, 2014 [facility] [place] [facility] [address] [id number] [place] [address]- 6304 16 Jan, 2014 [facility] [place] [facility] [address] [id number] [place] [address]- 6145 Jan, 2014 [facility] [place] [facility] [address] [facility] [id number] [place] [address]- 5572 Jan, 2014 [facility] [place] [facility] [address] [id number] [place] [address]- 6649 Jan, 2014 [facility] [place] [facility] [address] [id number] [place] [address]- 8633 Jan, [facility] [place] [facility] [address] [id number] [place] [address]- 2611 Dec, 2014 [facility] [place] [facility] [address] [facility] [id number] [place] [address]- 8003 Dec, 2014 [facility] [place] [facility] [address] [id number] [address]- 1781 Dec, 2014 [facility] [place] [facility] [address] [id number] [place] [address]- 8017 Dec, 2014 [facility] [place] [facility] [address] [id number] [place] [address]- 7619 Dec, 2014 [facility] [place] [facility] [address] [facility] [id number] [place] [address]- 8708 Dec, 2014 [facility] [place] [facility] [address] [id number], [place] [address]- 3535 Dec, [facility] [address] [id number] [place] [address]- 7230 Dec, [facility] [place] [facility] [address] [id number] [place] [address]- 9729 Nov, [facility] [place] [facility] [address] [id number] [place] [address]- 3147 Nov, [facility] [place] [facility] [address] [id number] [place] [address]- 3314 Nov, [facility] [place] [facility] [address] [id number] [place] [address]- 7537 Nov, [facility] [place] [facility] [address] [id number] [place] [address]- 5814 Nov, [facility] [address] [id number] [place] [address]- 9553 Nov, [facility] [place] [facility] [address] [id number] [place] [address]- 0416 Nov, [facility] [place] [facility] [address] [id number] [place] [address]- 6662 Nov, [facility] [place] [facility] [address] [facility] [id number] [place] [address]- 9239 Oct, [facility] [place] [facility] [address] [id number] [place] [address]- 6528 Oct, [facility] [place] [facility] [address] [id number], [place] [address]- 4331 Sep, [facility] [place] [facility] [address] [id number] [place] [address]- 9217 Sep, [facility] [place] [facility] [address] [id number] [place] [address]- 3992 Sep, [facility] [place] [facility] [address] [id number], [place] [address]- 5433 Sep, [facility] [place] [facility] [address] [id number] [place] [address]- 6737 Aug, [facility] [place] [facility] [address] [id number] [place] [address]- 3525 Aug, [facility] [place] [facility] [address] [id number] [place] [address]- 4417 Aug, [facility] [place] [facility] [address] [id number] [place] [address]- 1713 Aug, [facility] [place] [facility] [address] [id number] [place] [address]- 9231 Aug, [facility] [place] [facility] [address] [id number] [place] [address]- 9377 Aug, [facility] [place] [facility] [address] [id number] [place] [address]- 9862 Aug, [facility] [place] [facility] [address] [id number] [place] [address]- 4534 Aug, [facility] [place] [facility] [address] [id number] [place] [address]- 4968 Jul, [facility] [place] [facility] [address] [id number] [place] [address]- 1521 Jul, [facility] [place] [facility] [address] [id number] [place] [address]- 4645 Jul, [facility] [place] [facility] [address] [id number] [place] [address]- 4290 Jul, [facility] [place] [facility] [address] [id number] [place] [address]- 2950 Jul, [facility] [place] [facility] [address] [id number] [place] [address]- 1646 Jun, [facility] [place] [facility] [address] [id number] [place] [address]- 4832 Jun, [facility] [place] [facility] [address] [id number] [place] [address]- 6472 Jun, [facility] [place] [facility] [address] [id number] [place] [address]- 7663 Jun, [facility] [place] [facility] [address] [id number] [place] [address]- 4402 Jun, [facility] [place] [facility] [address] [id number] [place] [address]- 1777 Jun, [facility] [place] [facility] [address] [id number] [place] [address]- 5734 May, [facility] [place] [facility] [address] [id number] [place] [address]- 8426 May, [facility] [place] [facility] [address] [id number] [place] [address]- 4596 May, [facility] [place] [facility] [address] [id number] [place] [address]- 0424 May, [facility] [place] [facility] [address] [id number] [place] [address]- 0476 Apr, [facility] [place] [facility] [address] [id number] [place] [address]- 6353 Apr, [facility] [place] [facility] [address] [id number] [place] [address]- 5899 Apr, [facility] [place] [facility] [address] [id number] [place] [address]- 4927 Apr, [facility] [place] [facility] [address] [id number] [place] [address]- 4798 Apr, [facility] [place] [facility] [address] [id number] [place] [address]- 4913 Apr, [facility] [place] [facility] [address] [id number] [place] [address]- 2292 March, [facility] [place] [facility] [address] [id number] [place] [address]- 5065 March, [facility] [place] [facility] [address] [id number] [place] [address]- 1593 March, [facility] [place] [facility] [address] [id number] [place] [address]- 9953 March, [facility] [place] [facility] [address] [id number] [place] [address]- 3446 Feb, [facility] [place] [facility] [address] [id number] [place] [address]- 6117 Feb, [facility] [place] [facility] [address] [id number] [place] [address]- 3089 Feb, [facility] [place] [facility] [address] [id number] [place] [address]- 3256 Feb, [facility] [place] [facility] [address] [id number] [place] [address]- 1810 Feb, [facility] [place] [facility] [address] [id number] [place] [address]- 9250 Feb, [facility] [place] [facility] [address] [id number] [place] [address]- 5353 Feb, [facility] [place] [facility] [address] [id number] [place] [address]- 1641 Feb, [facility] [place] [facility] [address] [id number] [place] [address]- 3616 Feb, [facility] [place] [facility] [address] [id number] [place] [address]- 3725 Feb, [facility] [place] [facility] [address] [id number] [place] [address]- 0987 Feb, [facility] [place] [facility] [address] [id number] [place] [address]- 8849 Feb, [facility] [place] [facility] [address] [id number] [place] [address]- 6914 Feb, [facility] [place] [facility] [address] [id number] [place] [address]- 6834 Feb, [facility] [place] [facility] [address] [id number] [place] [address]- 7575 Feb, [facility] [place] [facility] [address] [id number] [place] [address]- 2502 Feb, [facility] [place] [facility] [address] [id number] [place] [address]- 3668 Jan, [facility] [place] [facility] [address] [id number] [place] [address]- 2581 Jan, [facility] [place] [facility] [address] [id number] [place] [address]- 5343 Dec, [facility] [place] [facility] [address] [id number] [place] [address]- 2013 Dec, [facility] [place] [facility] [address] [id number] [place] [address]- 3050 Dec, [facility] [place] [facility] [address] [id number] [place] [address] Dec, [facility] [place] [facility] [address] [id number] [place] [address] Dec, [facility] [place] [facility] [address] [id number] [place] [address] Dec, [facility] [place] [facility] [address] [id number] [place] [address] Dec, [facility] [place] [facility] [address] [id number], [place] [address] Nov, [facility] [place] [facility] [address] [id number] [place] [address] Nov, [facility] [place] [facility] [address] [id number] [place] [address] Nov, [facility] [place] [facility] [address] [id number] [place] [address] Nov, [facility] [place] [facility] [address] [id number] [place] [address] Oct, [facility] [place] [facility] [address] [id number] [place] [address] Oct, [facility] [place] [facility] [address] [id number] [place] [address] Sep, [facility] [place] [facility] [address] [id number] [place] [address] Sep, [facility] [place] [facility] [address] [id number] [place] [address] Aug, [facility] [place] [facility] [address] [id number] [place] [address] Aug, [facility] [place] [facility] [address] [id number] [place] [address] Aug, [facility] [place] [facility] [address] [id number] [place] [address] Aug, [facility] [place] [facility] [address] [id number] [place] [address] Aug, [facility] [place] [facility] [address] [id number] [place] [address] Aug, [facility] [place] [facility] [address] [id number] [place] [address] Aug, [facility] [place] [facility] [address] [id number] [place] [address] Aug, [facility] [place] [facility] [address] [id number] [place] [address] Aug, [facility] [place] [facility] [address] [id number] [id number] [address] Aug, [facility] [place] [facility] [address] [id number] [place] [address] Jun, [facility] [place] [facility] [address] [id number] [place] [address] Jun, [facility] [place] [facility] [address] [id number] [place] [address] May, [facility] [address] [id number] [place] [address] Apr, [facility] [place] [facility] [address] [id number] [place] [address] Apr, [facility] [address] [id number] [place] [address] March, [facility] [address] [id number] [place] [address] Feb, [facility] [address] [id number] [place] [address] Jan, [facility] [address] [id number] [place] [address] Jan, [facility] [address] [id number] [place] [address] Dec, [facility] [address] [id number] [place] [address] Dec, [facility] [address] [id number] [place] [address] Nov, [facility] [address] [id number] [place] [address] Jul, [facility] [address] [id number] [place] [address] Jul, [facility] [place] [facility] [address] [id number] [place] [address] Jun, [facility] [place] [facility] [address] [id number] [place] [address] May, [facility] [place] [facility] [address] [id number] [place] [address] May, [facility] [place] [facility] [address] [id number], [place] [address] May, [facility] [address] [id number] [address] May, [facility] [address] [id number] [address] May, [facility] [address] [id number] [address] May, [facility] [address] [id number] [address] May, [facility] [address] [id number] [address] Apr, [facility] [id number] [address] Apr, [facility] [id number] [address] Apr, [facility] [address] [id number] [address] Apr, IMMUNIZATIONS No Known Immunizations SOCIAL HISTORY Never Assessed REASON FOR VISIT Controlled Med Refill 02/04/18 PLAN OF CARE VITAL SIGNS MEDICATIONS Medication Instructions Dosage Frequency Start Date End Date Duration Status Hydrocodone-Acetaminophen 10-325 MG Orally 4 times a day 1 tablet as needed for pain 6h Jan, 28 days Active RESULTS No Results PROCEDURES No Known procedures INSTRUCTIONS MEDICATIONS ADMINISTERED No Known Medications MEDICAL (GENERAL) HISTORY Type Description Date Medical History hypogonadism Medical History hyperlipidemia Medical History pre-diabetic Medical History chronic pain Medical History COPD Surgical History skin cancer 1999 Hospitalization History surgery Hospitalization History MRSA infection 05/2015
--- OUTSIDE RECORDS SUMMARY | 2018-10-30 16:51 | XMS REPORT ---
Author Author JOSÉ LUIS RODRÍGUEZ [facility] eClinicalWorks Address Unknown Phone Unavailable Care Team Providers Care Python Django Developer Name Role Phone JOSÉ LUIS RODRÍGUEZ CP Unavailable Allergies No Known Allergies Problems Problem Type Condition Code Onset Dates Condition Status Problem Essential hypertension, benign 401.1 Active Problem Family history of malignant neoplasm, prostate V16.42 Active Problem Chronic airway obstruction, not elsewhere classified 496 Active Problem Umbilical hernia without mention of obstruction or gangrene 553.1 Active Problem Generalized osteoarthrosis, 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.04 Active Problem Family history of diabetes mellitus V18.0 Active Problem Other chronic pain 338.29 Active Problem Family history of malignant neoplasm of gastrointestinal tract V16.0 Active Problem Other seborrheic keratosis 702.19 Active Problem Persistent disorder of initiating or maintaining sleep 307.42 Active Medications Medication Code System Code Instructions Start Date End Date Status Dosage Hydrocodone-Acetaminophen [facility] [address]-01 10-325 MG RX to be filled on February 15, 2015 1 tablet by Oral route 3 times per day PRN Results No Known Results Summary Purpose eClinicalWorks Submission
--- OUTSIDE RECORDS SUMMARY | 2018-10-30 16:51 | XMS REPORT ---
Author Author JOSÉ LUIS RODRÍGUEZ [facility] eClinicalWorks Address Unknown Phone Unavailable Care Team Providers Care Recruiting Coordinator Name Role Phone JOSÉ LUIS RODRÍGUEZ CP [...] mellitus Z83.3 Active Problem Osteoarthritis M19.90 Active Problem Chronic airway obstruction, not elsewhere classified 496 Active Problem Family history of malignant neoplasm, prostate V16.42 Active Assessment Chronic pain G89.29 Active Problem Family history of malignant neoplasm of gastrointestinal tract V16.0 Active Problem Essential hypertension, benign 401.1 Active Problem Other chronic pain 338.29 Active Medications No Known Medications Procedures Procedure Coding System Code Date No Charge CPT-4 59916 Sep 17, 2016 Results No Known Results Summary Purpose eClinicalWorks Submission
--- OUTSIDE RECORDS SUMMARY | 2018-10-30 16:51 | XMS REPORT ---
Author Author JOSÉ LUIS RODRÍGUEZ Organization [facility] Address [address] [place] [address] Care Team Providers [employer] Salesperson Name Role Phone JOSÉ LUIS RODRÍGUEZ Unavailable PROBLEMS Type Condition ICD9-CM Code PIP79-EF Code Onset Dates Condition Status SNOMED Code Problem Chronic pain G89.29 Active 88243652 Problem Family history of diabetes mellitus Z83.3 Active 639517807 Problem Hypertriglyceridemia E78.1 Active 241934555 Problem History of MRSA infection Z86.14 Active 749584903 Problem Insomnia, unspecified type G47.00 Active 675094582 Problem Primary insomnia F51.01 Active 1385298 Problem Osteoarthritis M19.90 Active 682940698 Problem 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 Active 05504894 Problem Essential hypertension I10 Active 66539628 Problem Chronic obstructive pulmonary disease, unspecified COPD type J44.9 Active 30849633 ALLERGIES No Information ENCOUNTERS Encounter Location Date Diagnosis [place] [id number] [place] [address] 59368- 5397 Apr, [place] [id number] [place] [address] 34491- 1684 March, Insomnia, unspecified type G47.00 [facility] [id number] [place] [address] 46245- 3321 Feb, Chronic pain G89.29 [facility] [id number] [place] [address] 57326- 3678 Feb, Chronic pain G89.29 [facility] [id number] [place] [address] 33300- 6701 Jan, Chronic pain G89.29 [facility] [id number] [place] [address] 78758- 2021 Dec, Chronic pain G89.29 [facility] [address] [address] 8696 Nov, Chronic pain G89.29 and Insomnia, unspecified type G47.00 [facility] [id number] [place] [address] 02759- 7241 Oct, Insomnia, unspecified type G47.00 ; Chronic pain G89.29 and Colon cancer screening Z12.11 [place] [id number] [place] [address] 40001- 5232 Oct, Chronic pain G89.29 [place] [id number] [place] [address] 35139- 2672 Sep, Chronic pain G89.29 and Insomnia, unspecified type G47.00 [place] [id number] [place] [address] 17823- 3005 Sep, Chronic pain G89.29 [place] [id number] [place] [address] 82223- 7028 Sep, [place] [id number] [place] [address] 33606- 2573 Aug, Medicare welcome exam Z00.00 ; Encounter for immunization Z23 ; Colon cancer screening Z12.11 and Encounter for screening for lung cancer Z12.2 [place] [address], [place] [address] 4372 Aug, [place] [id number] [place] [address] 75430- 8682 Aug, Chronic pain G89.29 and Insomnia, unspecified type G47.00 [place] [id number] [place] [address] 32847- 6219 Aug, Hypertriglyceridemia E78.1 [place] [id number] [address]- 5028 Jul, Chronic pain G89.29 and Insomnia, unspecified type G47.00 [place] [id number] [place] [address] 04139- 8178 Jun, Hypertriglyceridemia E78.1 [facility] [address] 96853- 5752 Jun, Chronic pain G89.29 and Insomnia, unspecified type G47.00 [facility] [id number] [place] [address] 45802- 2173 Jun, [facility] [address] 80182- 0810 Jun, [facility] [address] 02113- 9885 May, 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 ; Chronic pain G89.29 ; Insomnia, unspecified type G47.00 and Rash R21 [place] [address] 16193- 2641 May, Chronic pain G89.29 [facility] [id number] [place] [address] 81334- 0077 May, Hypertriglyceridemia E78.1 [place] [address] 49310- 7947 Apr, Chronic pain G89.29 [facility] [id number] [place] [address] 04765- 0854 Apr, Chronic pain G89.29 ; 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 ; Hypertriglyceridemia E78.1 and Primary insomnia F51.01 [facility] [id number] [place] [address] 04311- 2509 March, Chronic pain G89.29 [place] [address] 92105- 2864 March, Chronic pain G89.29 [facility] [id number] [place] [address] 94704- 3136 Feb, [facility] [address] 62313- 6558 Feb, Chronic pain G89.29 [facility] [id number] [place] [address] 76449- 5010 Jan, Chronic pain G89.29 [facility] [id number] [place] [address] 54727- 5374 07 Dec, 2016 Chronic pain G89.29 [facility] [id number] [place] [address] 56657- 6499 Dec, [facility] [id number] [place] [address] 87126- 4427 Nov, Hypertriglyceridemia E78.1 [facility] [id number] [place] [address] 76652- 4313 Nov, [facility] [id number] [place] [address] 22342- 7230 Nov, Chronic pain G89.29 ; Hypertriglyceridemia E78.1 and Chronic obstructive pulmonary disease, unspecified COPD type J44.9 [facility] [id number] [place] [address] 65127- 0426 Nov, Chronic pain G89.29 [facility] [id number] [place] [address] 71956- 0208 Oct, Chronic pain G89.29 [facility] [id number] [place] [address] 87884- 7142 Oct, [facility] [id number] [place] [address] 01435- 5628 Sep, Chronic obstructive pulmonary disease, unspecified COPD type J44.9 and Abscess L02.91 [facility] [id number] [place] [address] 66652- 0534 16 Sep, 2016 Chronic pain G89.29 [facility] [address] [place] [address] 84317- 6908 Aug, Chronic pain G89.29 [facility] [id number] [place] [address] 83338- 0918 Aug, Chronic pain G89.29 [facility] [address] 32330- 7141 Aug, Cutaneous horn L85.8 and Skin tag L91.8 [facility] [address] 89703- 5393 Jul, [facility] [address] 35386- 4134 Jul, Hypertriglyceridemia E78.1 [place] [address] 87767- 5226 07 Jul, 2016 Other chronic pain G89.29 ; Essential hypertension I10 ; 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 ; Hyperlipidemia, unspecified hyperlipidemia type E78.5 and Cutaneous horn L85.8 [facility] [address] 69678- 1967 Jun, Chronic pain G89.29 [facility] [address] 32915- 6019 May, Chronic pain G89.29 [facility] [address] 19466- 4727 May, [facility] [id number] [place] [address] 77569- 8263 May, Skin infection L08.9 [facility] [address] 11459- 3627 Apr, Chronic pain G89.29 [facility] [address] 25621- 8457 Apr, [facility] [address] 53387- 5973 Apr, Chronic pain G89.29 [facility] [id number] [place] [address] 17531- 2684 March, [facility] [address] [place] [address] 97618- 8171 Feb, Chronic pain G89.29 ; 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 and Hypertriglyceridemia E78.1 [facility] [id number] [place] [address] 04572- 6162 Feb, [facility] [id number] [place] [address] 62450- 7381 Jan, [facility] [id number] [place] [address] 21075- 0574 Dec, [facility] [id number] [place] [address] 12831- 7145 Nov, [facility] [id number] [place] [address] 42916- 3458 Oct, [facility] [id number] [place] [address] 18700- 5644 Oct, 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 [facility] [id number] [place] [address] 80088- 3798 Oct, Other chronic pain G89.29 ; Chronic obstructive pulmonary disease, unspecified COPD type J44.9 ; Insomnia, unspecified type G47.00 ; 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 and Essential hypertension I10 [facility] [id number] [place] [address] 84837- 3762 Sep, [facility] [id number] [place] [address] 13181- 4322 Aug, [facility] [id number] [place] [address] 86572- 5151 30 Jul, 2015 [facility] [id number] [place] [address] 66816- 0896 14 Jul, 2015 [facility] [id number] [place] [address] 34136- 4531 14 Jul, 2015 Overweight 278.02 and Hyperinsulinemia 251.1 [facility] [id number] [place] [address] 69823- 6259 Jul, [facility] [id number] [place] [address] 71140- 4625 Jun, Skin tags, multiple acquired 701.9 [facility] [address] 18741- 5343 Jun, Other chronic pain 338.29 ; Erectile dysfunction 607.84 ; Hyperinsulinemia 251.1 and Hypertension 401.9 [facility] [address] 35729- 5728 Jun, [facility] [address] 71498- 3397 Jun, [facility] [address] 34663- 0350 Jun, [facility] [address] 24366- 0883 May, Pure hyperglyceridemia 272.1 [facility] [address] 60021- 0270 May, Pure hyperglyceridemia 272.1 [facility] [id number] [place] [address] 64497- 2104 May, [facility] [id number] [place] [address] 44354- 1610 May, Overgrown toenails 703.8 ; Seborrheic keratosis 702.19 ; Skin tag 701.9 ; Warts, genital 078.11 ; Cramps, extremity 729.82 ; Increased appetite 783.6 and Heat rash 705.1 [facility] [id number] [place] [address] 18885- 7891 May, [facility] [id number] [place] [address] 14389- 2107 Apr, [facility] [address] 89456- 3776 08 Apr, 2015 [facility] [place] [facility] [address] [id number] [place] [address]- 0583 March, [facility] [place] [facility] [address] [id number] [place] [address]- 3840 14 Feb, 2015 [facility] [place] [facility] [address] [id number] [place] [address]- 1223 Feb, [facility] [place] [facility] [address] [id number] [place] [address]- 9845 27 Jan, 2015 [facility] [place] [facility] [address] [id number] [place] [address]- 0156 27 Jan, 2015 [facility] [place] [facility] [address] [id number] [place] [address]- 9898 27 Jan, 2015 [facility] [place] [facility] [address] [id number] [place] [address]- 0711 Jan, [facility] [place] [facility] [address] [id number] [place] [address]- 0770 Jan, [facility] [place] [facility] [address] [id number] [place] [address]- 3732 19 Jan, 2015 [facility] [place] [facility] [address] [id number] [place] [address]- 8041 16 Jan, 2015 [facility] [place] [facility] [address] [id number] [place] [address]- 5514 16 Jan, 2015 [facility] [place] [facility] [address] [id number] [place] [address]- 3180 10 Jan, 2015 [facility] [place] [facility] [address] [id number] [place] [address]- 8824 10 Jan, 2015 [facility] [place] [facility] [address] [id number] [place] 5033 05 Jan, 2015 [facility] [place] [facility] [address] [id number] [place] [address]- 5028 05 Jan, 2015 [facility] [place] [facility] [address] [id number] [place] [address]- 5246 Dec, 2014 [facility] [place] [facility] [address] [id number] [place] [address]- 4021 Dec, 2014 [facility] [place] [facility] [address] [id number] [place] 4016 Dec, 2014 [facility] [place] [facility] [address] [id number] [place] [address]- 8095 Dec, 2014 [facility] [place] [facility] [address] [id number] [place] [address]- 1607 Dec, 2014 [facility] [place] [facility] [address] [id number] [place] [address]- 7880 Dec, 2014 [facility] [place] [facility] [address] [facility] [id number] [place] [address]- 7465 Dec, 2014 [facility] [place] [facility] [address] [id number] [place] [address]- 0382 Dec, 2014 [facility] [place] [facility] [address] [id number] [place] [address]- 8682 Nov, [facility] [place] [facility] [address] [id number] [place] [address]- 2282 Nov, [facility] [place] [facility] [address] [facility] [id number] [place] [address]- 6004 Nov, [facility] [place] [facility] [address] [id number] [address]- 3762 Nov, [facility] [place] [facility] [address] [id number] [place] [address]- 1980 Nov, [facility] [place] [facility] [address] [id number] [place] [address]- 7166 Nov, [facility] [place] [facility] [address] [id number] [place] [address]- 0593 Nov, [facility] [place] [facility] [address] [id number], [place] [address]- 4267 Nov, [facility] [place] [facility] [address] [id number] [place]- 6522 Oct, [facility] [place] [facility] [address] [id number] [place] [address]- 9187 Oct, [facility] [place] [facility] [address] [id number] [place] [address]- 9898 Sep, [facility] [place] [facility] [address] [id number] [place] [address]- 8056 Sep, [facility] [place] [facility] [address] [id number] [place]- 6403 Sep, [facility] [place] [facility] [address] [id number] [place] [address]- 5235 Sep, [facility] [place] [facility] [address] [id number] [place] [address]- 9985 Aug, [facility] [place] [facility] [address] [id number] [place] [address]- 9623 Aug, [facility] [place] [facility] [address] [id number], [place] [address]- 2918 Aug, [facility] [place] [facility] [address] [id number], [place] [address]- 7152 Aug, [facility] [place] [facility] [address] [id number], [place] [address]- 5546 Aug, [facility] [place] [facility] [address] [id number], [place] [address]- 5459 Aug, [facility] [place] [facility] [address] [id number]- 1135 Aug, [facility] [place] [facility] [address] [id number] 5850 Aug, [facility] [place] [facility] [address] [id number] [place] 0516 Jul, [facility] [place] [facility] [address] [id number] [place] [address]- 7545 Jul, [facility] [place] [facility] [address] [id number] [place] [address]- 5431 Jul, [facility] [place] [facility] [address] [id number] [place] [address]- 3676 Jul, [facility] [place] [facility] [address] [id number] [place] [address]- 3222 Jul, [facility] [place] [facility] [address] [id number] [place] [address]- 6229 Jun, [facility] [place] [facility] [address] [id number] [place] [address]- 6566 Jun, [facility] [place] [facility] [address] [id number] [place] [address]- 2734 Jun, [facility] [place] [facility] [address] [id number] [place] [address]- 5346 Jun, [facility] [place] [facility] [address] [id number] [place] [address]- 5665 Jun, [facility] [place] [facility] [address] [id number] [place] [address]- 3005 Jun, [facility] [place] [facility] [address] [id number] [place] [address]- 5243 May, [facility] [place] [facility] [address] [id number] [place] [address]- 1593 May, [facility] [place] [facility] [address] [id number] [place] [address]- 3847 May, [facility] [place] [facility] [address] [id number] [place] [address]- 7313 May, [facility] [place] [facility] [address] [id number] [place] [address]- 2894 Apr, [facility] [place] [facility] [address] [id number] [place] [address]- 1198 Apr, [facility] [place] [facility] [address] [id number] [place] [address]- 8560 Apr, [facility] [place] [facility] [address] [id number] [place] [address]- 7397 Apr, [facility] [place] [facility] [address] [id number] [place] [address]- 4768 Apr, [facility] [place] [facility] [address] [id number] [place] [address]- 4628 Apr, [facility] [place] [facility] [address] [id number] [place] [address]- 5812 March, [facility] [place] [facility] [address] [id number] [place] [address]- 4562 March, [facility] [place] [facility] [address] [id number] [place] [address]- 3083 March, [facility] [place] [facility] [address] [id number] [place] [address]- 6986 March, [facility] [place] [facility] [address] [id number] [place] [address]- 3562 Feb, [facility] [place] [facility] [address] [id number] [place] [address]- 3135 Feb, [facility] [place] [facility] [address] [id number] [place] [address]- 4969 Feb, [facility] [place] [facility] [address] [id number] [place] [address]- 7460 Feb, [facility] [place] [facility] [address] [id number] [place] [address]- 0349 Feb, [facility] [place] [facility] [address] [id number] [place] [address]- 7677 Feb, [facility] [place] [facility] [address] [id number] [place] [address]- 4534 Feb, [facility] [place] [facility] [address] [id number] [place] [address]- 8425 Feb, [facility] [place] [facility] [address] [id number] [place] [address]- 7737 Feb, [facility] [place] [facility] [address] [id number] [place] [address]- 1080 Feb, [facility] [place] [facility] [address] [id number] [place] [address]- 6120 Feb, [facility] [place] [facility] [address] [id number] [place] [address]- 7934 Feb, [facility] [place] [facility] [address] [id number] [place] [address]- 4881 Feb, [facility] [place] [facility] [address] [id number] [place] [address]- 5248 Feb, [facility] [place] [facility] [address] [id number] [place] [address]- 7432 Feb, [facility] [place] [facility] [address] [id number] [place] [address]- 6417 Feb, [facility] [place] [facility] [address] [id number] [place] [address]- 2848 Jan, [facility] [place] [facility] [address] [id number] [place] [address]- 9334 Jan, [facility] [place] [facility] [address] [id number] [place] [address]- 4348 Dec, [facility] [place] [facility] [address] [id number] [place] [address]- 9097 Dec, [facility] [place] [facility] [address] [id number] [place] [address]- 5215 Dec, [facility] [place] [facility] [address] [id number] [place] [address]- 0160 Dec, [facility] [place] [facility] [address] [id number] [place] [address]- 0776 Dec, [facility] [place] [facility] [address] [id number] [place] [address] Dec, [facility] [place] [facility] [address] [id number] [place] [address] Dec, [facility] [place] [facility] [address] [id number] [place] [address] Nov, [facility] [place] [facility] [address] [id number] [place] [address] Nov, [facility] [place] [facility] [address] [id number] [place] [address] Nov, [facility] [place] [facility] [address] [id number] [place] [address] Nov, [facility] [place] [facility] [address] [id number] [place] [address] Oct, [facility] [place] [facility] [address] [id number], [place] [address] Oct, [facility] [place] [facility] [address] [id number] [place] [address] Sep, [facility] [place] [facility] [address] [id number], [place] [address] Sep, [facility] [place] [facility] [address] [id number], [place] [address] Aug, [facility] [place] [facility] [address] [id number], [place] [address] Aug, [facility] [place] [facility] [address] [id number] [place] [address] Aug, [facility] [place] [facility] [address] [id number], [place] [address] Aug, [facility] [place] [facility] [address] [id number], [place] [address] Aug, [facility] [place] [facility] [address] [id number], [place] [address] Aug, [facility] [address] [id number] [place] [address] Aug, [facility] [place] [facility] [address] [id number][place] [address] Aug, [facility] [address] [facility] [id number] [place] [address] Aug, [facility] [place] [facility] [address] [id number] [place] [address] Aug, [facility] [address] [facility] [id number] [place] [address] Jun, [facility] [address] [facility] [id number] [place] [address] Jun, [facility] [address] [id number], [place] [address] May, [facility] [place] [facility] [address] [facility] [id number], [place] [address] Apr, [facility] [address] [id number], [place] [address] Apr, [facility] [address] [id number], [place] [address] March, [facility] [address] [id number], [place] [address] Feb, [facility] [place] [facility] [address] [facility] [id number], [place] [address] Jan, [facility] [place] [facility] [address] [id number], [place] [address] Jan, [facility] [place] [facility] [address] [facility] [id number], [place] [address] Dec, [facility] [place] [facility] [address] [facility] [id number], [place] [address] Dec, [facility] [place] [facility] [address] [id number] [place] [address] Nov, [facility] [address] [facility] [id number] [place] [address] Jul, [facility] [address] [facility] [id number] [place] [address] Jul, [facility] [address] [facility] [id number] [place] [address] Jun, [facility] [address] [id number] [place] [address] May, [facility] [address] [facility] [id number] [place] [address] May, [facility] [address] [facility] [id number] [place] [address] May, [facility] [address] [facility] [id number] [place] [address] May, [facility] [address] [facility] [id number] [place] [address] May, [facility] [address] [facility] [id number] [address] May, [facility] [address] [facility] [id number], [place] [address] May, [facility] [address] [facility] [id number], [place] [address] Apr, [facility] [address] [facility] [id number], [place] [address] Apr, [facility] [address] [facility] [id number], [place] [address] Apr, [facility] [address] [facility] [id number], [place] [address] Apr, IMMUNIZATIONS No Known Immunizations SOCIAL HISTORY Never Assessed REASON FOR VISIT Controlled Med Refill 09/17/2017 PLAN OF CARE VITAL SIGNS MEDICATIONS Medication Instructions Dosage Frequency Start Date End Date Duration Status Ambien 5 MG Orally Once a day 0.5 - 1 tablet at bedtime 24h May, 28 days Active Hydrocodone-Acetaminophen 10-325 MG Orally 4 times a day 1 tablet as needed for pain 6h Aug, 28 days Active RESULTS No Results PROCEDURES No Known procedures INSTRUCTIONS MEDICATIONS ADMINISTERED No Known Medications MEDICAL (GENERAL) HISTORY Type Description Date Medical History hypogonadism Medical History hyperlipidemia Medical History pre-diabetic Medical History chronic pain Medical History COPD Surgical History skin cancer 1999 Hospitalization History surgery Hospitalization History MRSA infection 05/2015
--- OUTSIDE RECORDS SUMMARY | 2018-10-30 16:51 | XMS REPORT ---
Author Author OJSÉ LUIS RODRÍGUEZ [facility] [place] eClinicalWorks Address Unknown Phone Unavailable Care Team Providers Care Estimating Engineer Name Role Phone JOSÉ LUIS RODRÍGUEZ CP [...] Start Date End Date Status Dosage Hydrocodone-Acetaminophen [facility] [address]-94 10-325 MG Orally 4 times a day February 15, 2015 1 tablet as needed for pain Symbicort [facility] [id number] 160-4.5 MCG/ACT INHALE TWO PUFFS BY MOUTH TWICE DAILY IN THE MORNING AND EVENING Zetia [facility] [address]-81 10 mg Orally Once a day Aug 08, 2016 1 tablet Viagra [facility] 79633206091 100 MG Orally Once a day prn 1 tablet as needed Stiolto Respimat [facility] [address]-22 2.5-2.5 MCG/ACT Inhalation Once a day 2 samples given Nov 15, 2015 2 puffs MetFORMIN HCl ER [facility] [id number] 500 MG Orally twice a day 2 tablets Lipitor [facility] 56464410731 40 mg Orally Once a day 1 tablet Oxygen [facility] 0 N/A 1 1/2 l at hs Once a day Nov 15, 2015 as directed Results No Known Results Summary Purpose eClinicalWorks Submission
--- OUTSIDE RECORDS SUMMARY | 2018-10-30 16:52 | XMS REPORT ---
Author Author JOSÉ LUIS RODRÍGUEZ [facility] eClinicalWorks Address Unknown Phone Unavailable Care Team Providers Care Peoplesoft Fscm Developer Name Role Phone JOSÉ LUIS RODRÍGUEZ [...] Start Date End Date Status Dosage Hydrocodone-Acetaminophen [facility] [address]-20 10-325 MG Orally 4 times a day February 15, 2015 1 tablet as needed Results No Known Results Summary Purpose eClinicalWorks Submission
--- OUTSIDE RECORDS SUMMARY | 2018-10-30 16:52 | XMS REPORT ---
Author Author JOSÉ LUIS RODRÍGUEZ [facility] eClinicalWorks Address Unknown Phone Unavailable Care Team Providers Care Clothing Trades Workers Name Role Phone JOSÉ LUIS RODRÍGUEZ CP [...] Start Date End Date Status Dosage Hydrocodone-Acetaminophen [facility] [address]-64 10-325 MG Orally 4 times a day February 15, 2015 1 tablet as needed for pain Results No Known Results Summary Purpose eClinicalWorks Submission
--- OUTSIDE RECORDS SUMMARY | 2018-10-30 16:52 | XMS REPORT ---
Author Author JOSÉ LUIS RODRÍGUEZ [facility] eClinicalWorks Address Unknown Phone Unavailable Care Team Providers Care Analytical Lab Analyst Name Role Phone JOSÉ LUIS RODRÍGUEZ CP [...] of initiating or maintaining sleep 307.42 Active Assessment 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 Active Assessment Insomnia, unspecified type G47.00 Active Assessment Chronic obstructive pulmonary disease, unspecified COPD type J44.9 Active Assessment Essential hypertension I10 Active Assessment Other chronic pain G89.29 Active Medications Medication Code System Code Instructions Start Date End Date Status Dosage Stiolto Respimat [facility] [address]-17 2.5-2.5 MCG/ACT Inhalation Once a day 2 samples given Nov 15, 2015 2 puffs Hydrocodone-Acetaminophen [facility] [address]-11 10-325 MG Orally 4 times a day February 15, 2015 1 tablet as needed Symbicort [facility] 13855451624 160-4.5 MCG/ACT INHALE TWO PUFFS BY MOUTH TWICE DAILY IN THE MORNING AND EVENING Oxygen ND 0 N/A 1 1/2 l at hs Once a day Nov 15, 2015 as directed MetFORMIN HCl ER ND 45563339919 500 MG Orally Once a day 1 tablet at HS for 1 week then 1 tab BID Procedures Procedure Coding System Code Date Office Visit, Est Pt., Level 3 CPT-4 18000 Nov 15, 2015 Vital Signs Date/Time: Nov 15, 2015 Temperature 97.8 F Weight 236.2 lbs Height 66 in BMI 38.12 Index Blood Pressure Diastolic 98 mmHg Blood Pressure Systolic 154 mmHg Cardiac Monitoring Heart Rate 72 bpm Results No Known Results Summary Purpose eClinicalWorks Submission
--- OUTSIDE RECORDS SUMMARY | 2018-10-30 16:52 | XMS REPORT ---
Author Author JOSÉ LUIS RODRÍGUEZ [facility] eClinicalWorks Address Unknown Phone Unavailable Care Team Providers Care Computer Systems Architect Name Role Phone JOSÉ LUIS RODRÍGUEZ CP Unavailable Allergies, Adverse Reactions, Alerts Substance Reaction Event Type N.K.D.A. Info Not Available Non Drug Allergy Problems Problem Type Condition Code Onset Dates Condition Status Problem Other chronic pain 338.29 Active Problem Generalized osteoarthrosis, 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.04 Active Problem Persistent disorder of initiating or maintaining sleep 307.42 Active Problem Hypertriglyceridemia E78.1 Active Problem 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 Active Problem Chronic pain G89.29 Active Problem Family history of diabetes mellitus V18.0 Active Problem Umbilical hernia without mention of obstruction or gangrene 553.1 Active Problem Family history of diabetes mellitus Z83.3 Active Problem Osteoarthritis M19.90 Active Assessment Hypertriglyceridemia E78.1 Active Problem Essential hypertension, benign 401.1 Active Problem Chronic airway obstruction, not elsewhere classified 496 Active Assessment 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 Active Problem Family history of malignant neoplasm, prostate V16.42 Active Assessment Chronic pain G89.29 Active Problem Family history of malignant neoplasm of gastrointestinal tract V16.0 Active Medications Medication Code System Code Instructions Start Date End Date Status Dosage Symbicort [facility] [id number] 160-4.5 MCG/ACT INHALE TWO PUFFS BY MOUTH TWICE DAILY IN THE MORNING AND EVENING Oxygen ND 0 N/A 1 1/2 l at hs Once a day Nov 15, 2015 as directed Hydrocodone-Acetaminophen [facility] [address]-16 10-325 MG Orally 4 times a day February 15, 2015 1 tablet as needed for pain MetFORMIN HCl ER [facility] [address]-35 500 MG Orally twice a day 2 tablets Lipitor [facility] [address]-90 40 mg Orally Once a day Nov 21, 2015 1 tablet Stiolto Respimat [facility] [address]-08 2.5-2.5 MCG/ACT Inhalation Once a day 2 samples given Nov 15, 2015 2 puffs Viagra [facility] 31477979746 100 MG Orally Once a day prn 1 tablet as needed Procedures Procedure Coding System Code Date No Charge CPT-4 75680 March 11, 2016 Office Visit, Est Pt., Level 3 CPT-4 44786 March 11, 2016 Vital Signs Date/Time: March 11, 2016 Temperature 98.0 F Weight 243 lbs Height 66 in BMI 39.22 Index Blood Pressure Diastolic 78 mmHg Blood Pressure Systolic 142 mmHg Cardiac Monitoring Heart Rate 70 bpm Results No Known Results Summary Purpose eClinicalWorks Submission
--- OUTSIDE RECORDS SUMMARY | 2018-10-30 16:52 | XMS REPORT ---
Author Author JOSÉ LUIS RODRÍGUEZ Organization [facility] Address [address] [place] [address] Care Team Providers Care Legal Librarian Name Role Phone JOSÉ LUIS RODRÍGUEZ Unavailable PROBLEMS Type Condition ICD9-CM Code OKM09-XD Code Onset Dates Condition Status SNOMED Code Problem Chronic pain G89.29 Active 66722305 Problem Family history of diabetes mellitus Z83.3 Active 849488008 Problem Hypertriglyceridemia E78.1 Active 243272488 Problem History of MRSA infection Z86.14 Active 332025356 Problem Insomnia, unspecified type G47.00 Active 456199650 Problem Primary insomnia F51.01 Active 8591395 Problem Osteoarthritis M19.90 Active 724500823 Problem 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 Active 84972269 Problem Essential hypertension I10 Active 33776506 Problem Chronic obstructive pulmonary disease, unspecified COPD type J44.9 Active 65037901 ALLERGIES No Information ENCOUNTERS Encounter Location Date Diagnosis [place] [id number] [place] [address] 47986- 5688 Apr, [place] [id number] [place] [address] 78960- 5762 March, Insomnia, unspecified type G47.00 [facility] [id number] [place] [address] 43668- 4825 Feb, Chronic pain G89.29 [facility] [id number] [place] [address] 37076- 3518 Feb, Chronic pain G89.29 [facility] [id number] [place] [address] 72181- 3949 Jan, Chronic pain G89.29 [facility] [id number] [place] [address] 37366- 4524 Dec, Chronic pain G89.29 [facility] [address] [address] 38[address] Nov, Chronic pain G89.29 and Insomnia, unspecified type G47.00 [facility] [id number] [place] [address] 10196- 9181 Oct, Insomnia, unspecified type G47.00 ; Chronic pain G89.29 and Colon cancer screening Z12.11 [place] [id number] [place] [address] 80963- 8600 Oct, Chronic pain G89.29 [place] [id number] [place] [address] 00406- 2903 Sep, Chronic pain G89.29 and Insomnia, unspecified type G47.00 [place] [id number] [place] [address] 12711- 4663 Sep, Chronic pain G89.29 [place] [id number] [place] [address] 52337- 0778 Sep, [place] [id number] [place] [address] 52526- 4698 Aug, Medicare welcome exam Z00.00 ; Encounter for immunization Z23 ; Colon cancer screening Z12.11 and Encounter for screening for lung cancer Z12.2 [place] [address] [address] 9425 Aug, [place] [id number] [place] [address] 05403- 7415 Aug, Chronic pain G89.29 and Insomnia, unspecified type G47.00 [place] [id number] [place] [address] 49996- 2304 Aug, Hypertriglyceridemia E78.1 [place] [id number] [address]- 0925 Jul, Chronic pain G89.29 and Insomnia, unspecified type G47.00 [place] [id number] [place] [address] 52240- 4721 Jun, Hypertriglyceridemia E78.1 [facility] [address] 79094- 6464 Jun, Chronic pain G89.29 and Insomnia, unspecified type G47.00 [facility] [id number] [place] [address] 66360- 4892 Jun, [facility] [address] 23868- 5402 Jun, [facility] [address] 00772- 6193 May, 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 ; Chronic pain G89.29 ; Insomnia, unspecified type G47.00 and Rash R21 [place] [address] 57659- 7227 May, Chronic pain G89.29 [facility] [id number] [place] [address] 17701- 0441 May, Hypertriglyceridemia E78.1 [place] [address] 19914- 0485 Apr, Chronic pain G89.29 [facility] [id number] [place] [address] 42930- 9451 Apr, Chronic pain G89.29 ; 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 ; Hypertriglyceridemia E78.1 and Primary insomnia F51.01 [facility] [id number] [place] [address] 64779- 4804 March, Chronic pain G89.29 [place] [address] 73778- 3780 March, Chronic pain G89.29 [facility] [id number] [place] [address] 25697- 5671 Feb, [facility] [address] 49872- 0766 Feb, Chronic pain G89.29 [facility] [id number] [place] [address] 70953- 1933 Jan, Chronic pain G89.29 [facility] [id number] [place] [address] 58519- 7872 07 Dec, 2016 Chronic pain G89.29 [facility] [id number] [place] [address] 47351- 7495 Dec, [facility] [id number] [place] [address] 79754- 0829 Nov, Hypertriglyceridemia E78.1 [facility] [id number] [place] [address] 19231- 4991 Nov, [facility] [id number] [place] [address] 37235- 6248 Nov, Chronic pain G89.29 ; Hypertriglyceridemia E78.1 and Chronic obstructive pulmonary disease, unspecified COPD type J44.9 [facility] [id number] [place] [address] 04462- 5062 Nov, Chronic pain G89.29 [facility] [id number] [place] [address] 44370- 8538 Oct, Chronic pain G89.29 [facility] [id number] [place] [address] 31038- 5657 Oct, [facility] [id number] [place] [address] 88235- 2803 Sep, Chronic obstructive pulmonary disease, unspecified COPD type J44.9 and Abscess L02.91 [facility] [id number] [place] [address] 17278- 5336 16 Sep, 2016 Chronic pain G89.29 [facility] [id number] [place] [address] 53764- 2065 Aug, Chronic pain G89.29 [facility] [id number] [place] [address] 18236- 8236 Aug, Chronic pain G89.29 [facility] [address] 12889- 6962 Aug, Cutaneous horn L85.8 and Skin tag L91.8 [facility] [address] 00772- 1468 Jul, [facility] [address] 79704- 1139 Jul, Hypertriglyceridemia E78.1 [place] [address] 51594- 1547 07 Jul, 2016 Other chronic pain G89.29 ; Essential hypertension I10 ; 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 ; Hyperlipidemia, unspecified hyperlipidemia type E78.5 and Cutaneous horn L85.8 [facility] [address] 11823- 3237 Jun, Chronic pain G89.29 [facility] [address] 57247- 2953 May, Chronic pain G89.29 [facility] [address] 06495- 0099 May, [facility] [id number] [place] [address] 48556- 8721 May, Skin infection L08.9 [facility] [address] 64932- 0367 Apr, Chronic pain G89.29 [facility] [address] 62003- 3702 Apr, [facility] [address] 51216- 1056 Apr, Chronic pain G89.29 [facility] [id number] [place] [address] 80478- 8722 March, [facility] [id number] [place] [address] 11325- 1899 Feb, Chronic pain G89.29 ; 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 and Hypertriglyceridemia E78.1 [facility] [id number] [place] [address] 91804- 9729 Feb, [facility] [id number] [place] [address] 58624- 6795 Jan, [facility] [id number] [place] [address] 50319- 9572 Dec, [facility] [id number] [place] [address] 14941- 7929 Nov, [facility] [id number] [place] [address] 38067- 7816 Oct, [facility] [id number] [place] [address] 60311- 1109 Oct, 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 [facility] [id number] [place] [address] 99858- 3656 Oct, Other chronic pain G89.29 ; Chronic obstructive pulmonary disease, unspecified COPD type J44.9 ; Insomnia, unspecified type G47.00 ; 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 and Essential hypertension I10 [facility] [id number] [place] [address] 13920- 3192 Sep, [facility] [id number] [place] [address] 22017- 1056 Aug, [facility] [id number] [place] [address] 73547- 6569 30 Jul, 2015 [facility] [id number] [place] [address] 49246- 6486 14 Jul, 2015 [facility] [id number] [place] [address] 66711- 3588 14 Jul, 2015 Overweight 278.02 and Hyperinsulinemia 251.1 [facility] [id number] [place] [address] 49486- 1121 Jul, [facility] [id number] [place] [address] 90868- 5393 Jun, Skin tags, multiple acquired 701.9 [facility] [address] 29222- 9657 Jun, Other chronic pain 338.29 ; Erectile dysfunction 607.84 ; Hyperinsulinemia 251.1 and Hypertension 401.9 [facility] [address] 99707- 3643 Jun, [facility] [address] 83269- 4059 Jun, [facility] [address] 05525- 7638 Jun, [facility] [address] 59782- 9596 May, Pure hyperglyceridemia 272.1 [facility] [address] 18828- 8452 May, Pure hyperglyceridemia 272.1 [facility] [id number] [place] [address] 93617- 2539 May, [facility] [id number] [place] [address] 22737- 9789 May, Overgrown toenails 703.8 ; Seborrheic keratosis 702.19 ; Skin tag 701.9 ; Warts, genital 078.11 ; Cramps, extremity 729.82 ; Increased appetite 783.6 and Heat rash 705.1 [facility] [id number] [place] [address] 48244- 8064 May, [facility] [id number] [place] [address] 61951- 1429 Apr, [facility] [address] 92043- 9484 08 Apr, 2015 [facility] [place] [facility] [address] [id number] [place] [address]- 6584 March, [facility] [place] [facility] [address] [id number] [place] [address]- 8855 14 Feb, 2015 [facility] [place] [facility] [address] [id number] [place] [address]- 9516 Feb, [facility] [place] [facility] [address] [id number] [place] [address]- 1037 27 Jan, 2015 [facility] [place] [facility] [address] [id number] [place] [address]- 0606 27 Jan, 2015 [facility] [place] [facility] [address] [id number] [place] [address]- 0256 27 Jan, 2015 [facility] [place] [facility] [address] [id number] [place] [address]- 9105 Jan, [facility] [place] [facility] [address] [id number] [place] [address]- 6662 Jan, [facility] [place] [facility] [address] [id number] [place] [address]- 6454 19 Jan, 2015 [facility] [place] [facility] [address] [id number] [place] [address]- 3611 16 Jan, 2015 [facility] [place] [facility] [address] [id number] [place] [address]- 7390 16 Jan, 2015 [facility] [place] [facility] [address] [id number] [place] [address]- 4599 10 Jan, 2015 [facility] [place] [facility] [address] [id number] [place] [address]- 1874 10 Jan, 2015 [facility] [place] [facility] [address] [id number] [place] 0216 05 Jan, 2015 [facility] [place] [facility] [address] [id number] [place] [address]- 7428 05 Jan, 2015 [facility] [place] [facility] [address] [id number] [place] [address]- 2964 Dec, 2014 [facility] [place] [facility] [address] [id number] [place] [address]- 4302 Dec, 2014 [facility] [place] [facility] [address] [id number] [place] 2836 Dec, 2014 [facility] [place] [facility] [address] [id number] [place] [address]- 8220 Dec, 2014 [facility] [place] [facility] [address] [id number] [place] [address]- 7990 Dec, 2014 [facility] [place] [facility] [address] [id number] [place] [address]- 1274 Dec, 2014 [facility] [place] [facility] [address] [facility] [id number] [place] [address]- 4287 Dec, 2014 [facility] [place] [facility] [address] [id number] [place] [address]- 0435 Dec, 2014 [facility] [place] [facility] [address] [id number] [place] [address]- 2979 Nov, [facility] [place] [facility] [address] [id number] [place] [address]- 4702 Nov, [facility] [place] [facility] [address] [facility] [id number] [place] [address]- 8192 Nov, [facility] [place] [facility] [address] [id number] [address]- 6526 Nov, [facility] [place] [facility] [address] [id number] [place] [address]- 4265 Nov, [facility] [place] [facility] [address] [id number] [place] [address]- 2549 Nov, [facility] [place] [facility] [address] [id number] [place] [address]- 8036 Nov, [facility] [place] [facility] [address] [id number] [address]- 2107 Nov, [facility] [place] [facility] [address] [id number] [place] 5049 Oct, [facility] [place] [facility] [address] [id number] [place] [address]- 9576 Oct, [facility] [place] [facility] [address] [id number] [place] [address]- 2311 Sep, [facility] [place] [facility] [address] [id number] [place] [address]- 5516 Sep, [facility] [place] [facility] [address] [id number] [place] 5875 Sep, [facility] [place] [facility] [address] [id number] [place] [address]- 0361 Sep, [facility] [place] [facility] [address] [id number] [place] [address]- 6177 Aug, [facility] [place] [facility] [address] [id number] [place] [address]- 6396 Aug, [facility] [place] [facility] [address] [id number], [place] [address]- 3954 Aug, [facility] [place] [facility] [address] [id number], [place] [address]- 9424 Aug, [facility] [place] [facility] [address] [id number], [place] [address]- 3219 Aug, [facility] [place] [facility] [address] [id number], [place] [address]- 6449 Aug, [facility] [place] [facility] [address] [id number][place] 0303 Aug, [facility] [place] [facility] [address] [id number] 6925 Aug, [facility] [place] [facility] [address] [id number] [place] 8530 Jul, [facility] [place] [facility] [address] [id number] [place] [address]- 3260 Jul, [facility] [place] [facility] [address] [id number] [place] [address]- 1398 Jul, [facility] [place] [facility] [address] [id number] [place] [address]- 0635 Jul, [facility] [place] [facility] [address] [id number] [place] [address]- 8244 Jul, [facility] [place] [facility] [address] [id number] [place] [address]- 5724 Jun, [facility] [place] [facility] [address] [id number] [place] [address]- 2463 Jun, [facility] [place] [facility] [address] [id number] [place] [address]- 5687 Jun, [facility] [place] [facility] [address] [id number] [place] [address]- 0232 Jun, [facility] [place] [facility] [address] [id number] [place] [address]- 8932 Jun, [facility] [place] [facility] [address] [id number] [place] [address]- 1339 Jun, [facility] [place] [facility] [address] [id number] [place] [address]- 7998 May, [facility] [place] [facility] [address] [id number] [place] [address]- 9454 May, [facility] [place] [facility] [address] [id number] [place] [address]- 3745 May, [facility] [place] [facility] [address] [id number] [place] [address]- 8839 May, [facility] [place] [facility] [address] [id number] [place] [address]- 9783 Apr, [facility] [place] [facility] [address] [id number] [place] [address]- 7762 Apr, [facility] [place] [facility] [address] [id number] [place] [address]- 8479 Apr, [facility] [place] [facility] [address] [id number] [place] [address]- 2867 Apr, [facility] [place] [facility] [address] [id number] [place] [address]- 4522 Apr, [facility] [place] [facility] [address] [id number] [place] [address]- 1390 Apr, [facility] [place] [facility] [address] [id number] [place] [address]- 2938 March, [facility] [place] [facility] [address] [id number] [place] [address]- 9474 March, [facility] [place] [facility] [address] [id number] [place] [address]- 5383 March, [facility] [place] [facility] [address] [id number] [place] [address]- 5753 March, [facility] [place] [facility] [address] [id number] [place] [address]- 2185 Feb, [facility] [place] [facility] [address] [id number] [place] [address]- 5000 Feb, [facility] [place] [facility] [address] [id number] [place] [address]- 6248 Feb, [facility] [place] [facility] [address] [id number] [place] [address]- 4629 Feb, [facility] [place] [facility] [address] [id number] [place] [address]- 9446 Feb, [facility] [place] [facility] [address] [id number] [place] [address]- 7129 Feb, [facility] [place] [facility] [address] [id number] [place] [address]- 3885 Feb, [facility] [place] [facility] [address] [id number] [place] [address]- 4836 Feb, [facility] [place] [facility] [address] [id number] [place] [address]- 2556 Feb, [facility] [place] [facility] [address] [id number] [place] [address]- 1608 Feb, [facility] [place] [facility] [address] [id number] [place] [address]- 4798 Feb, [facility] [place] [facility] [address] [id number] [place] [address]- 0132 Feb, [facility] [place] [facility] [address] [id number] [place] [address]- 3029 Feb, [facility] [place] [facility] [address] [id number] [place] [address]- 5197 Feb, [facility] [place] [facility] [address] [id number] [place] [address]- 4356 Feb, [facility] [place] [facility] [address] [id number] [place] [address]- 4656 Feb, [facility] [place] [facility] [address] [id number] [place] [address]- 5603 Jan, [facility] [place] [facility] [address] [id number] [place] [address]- 0370 Jan, [facility] [place] [facility] [address] [id number] [place] [address]- 8163 Dec, [facility] [place] [facility] [address] [id number] [place] [address]- 0880 Dec, [facility] [place] [facility] [address] [id number] [place] [address]- 8104 Dec, [facility] [place] [facility] [address] [id number] [place] [address]- 4203 Dec, [facility] [place] [facility] [address] [id number] [place] [address] Dec, [facility] [place] [facility] [address] [id number] [place] [address] Dec, [facility] [place] [facility] [address] [id number] [place] [address] Dec, [facility] [place] [facility] [address] [id number] [place] [address] Nov, [facility] [place] [facility] [address] [id number] [place] [address] Nov, [facility] [place] [facility] [address] [id number] [place] [address] Nov, [facility] [place] [facility] [address] [id number] [place] [address] Nov, [facility] [place] [facility] [address] [id number] [place] [address] Oct, [facility] [place] [facility] [address] [id number], [place] [address] Oct, [facility] [place] [facility] [address] [id number] [place] [address] Sep, [facility] [place] [facility] [address] [id number], [place] [address] Sep, [facility] [place] [facility] [address] [id number], [place] [address] Aug, [facility] [place] [facility] [address] [id number], [place] [address] Aug, [facility] [place] [facility] [address] [id number] [place] [address] Aug, [facility] [place] [facility] [address] [id number], [place] [address] Aug, [facility] [place] [facility] [address] [id number], [place] [address] Aug, [facility] [place] [facility] [address] [id number], [place] [address] Aug, [facility] [address] [id number] [place] [address] Aug, [facility] [place] [facility] [address] [id number], [place] [address] Aug, [facility] [address] [facility] [id number] [place] [address] Aug, [facility] [place] [facility] [address] [id number] [place] [address] Aug, [facility] [address] [facility] [id number] [place] [address] Jun, [facility] [address] [facility] [id number] [place] [address] Jun, [facility] [address] [id number], [place] [address] May, [facility] [place] [facility] [address] [facility] [id number], [place] [address] Apr, [facility] [address] [id number], [place] [address] Apr, [facility] [address] [id number], [place] [address] March, [facility] [address] [id number], [place] [address] Feb, [facility] [place] [facility] [address] [facility] [id number], [place] [address] Jan, [facility] [place] [facility] [address] [id number], [place] [address]69 Jan, [facility] [place] [facility] [address] [facility] [id number], [place] [address] Dec, [facility] [place] [facility] [address] [facility] [id number], [place] [address] Dec, [facility] [place] [facility] [address] [facility] [id number], [place] [address] Nov, [facility] [address] [facility] [id number], [place] [address] Jul, [facility] [address] [facility] [id number], [place] [address] Jul, [facility] [address] [facility] [id number], [place] [address] Jun, [facility] [address] [id number] [place] [address] May, [facility] [address] [facility] [id number] [place] [address] May, [facility] [address] [facility] [facility] [id number] [place] [address] May, [facility] [address] [id number], [place] [address] May, [facility] [address] [id number], [place] [address] May, [facility] [address] [facility] [id number], [place] [address] May, [facility] [address] [id number], [place] [address] May, [facility] [id number], [place] [address] Apr, [facility] [address] [facility] [id number], [place] [address] Apr, [facility] [address] [facility] [id number], [place] [address] Apr, [facility] [address] [facility] [id number], [place] [address] Apr, IMMUNIZATIONS No Known Immunizations SOCIAL HISTORY Never Assessed REASON FOR VISIT PA for Zolpidem PLAN OF CARE VITAL SIGNS MEDICATIONS Unknown Medications RESULTS No Results PROCEDURES No Known procedures INSTRUCTIONS MEDICATIONS ADMINISTERED No Known Medications MEDICAL (GENERAL) HISTORY Type Description Date Medical History hypogonadism Medical History hyperlipidemia Medical History pre-diabetic Medical History chronic pain Medical History COPD Surgical History skin cancer 1999 Hospitalization History surgery Hospitalization History MRSA infection 05/2015
--- OUTSIDE RECORDS SUMMARY | 2018-10-30 16:52 | XMS REPORT ---
Author Author JOSÉ LUIS RODRÍGUEZ Organization [facility] Address [address] [place] [address] Care Team Providers Care Refrigeration Service Technician Name Role Phone JOSÉ LUIS RODRÍGUEZ Unavailable PROBLEMS Type Condition ICD9-CM Code JQR32-VI Code Onset Dates Condition Status SNOMED Code Problem Chronic pain G89.29 Active 20844233 Problem Family history of diabetes mellitus Z83.3 Active 910416928 Problem Hypertriglyceridemia E78.1 Active 206460177 Problem History of MRSA infection Z86.14 Active 584599047 Problem Insomnia, unspecified type G47.00 Active 821428540 Problem Primary insomnia F51.01 Active 0664794 Problem Osteoarthritis M19.90 Active 425234306 Problem 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 Active 19758124 Problem Essential hypertension I10 Active 02729888 Problem Chronic obstructive pulmonary disease, unspecified COPD type J44.9 Active 74777324 ALLERGIES No Information SOCIAL HISTORY Never Assessed PLAN OF CARE VITAL SIGNS MEDICATIONS Medication Instructions Dosage Frequency Start Date End Date Duration Status Hydrocodone-Acetaminophen 10-325 MG Orally 4 times a day 1 tablet as needed for pain 6h Apr, 28 days Active RESULTS No Results PROCEDURES No Known procedures IMMUNIZATIONS No Known Immunizations MEDICAL (GENERAL) HISTORY Type Description Date Medical History hypogonadism Medical History hyperlipidemia Medical History pre-diabetic Medical History chronic pain Medical History COPD Surgical History skin cancer 1999 Hospitalization History surgery Hospitalization History MRSA infection 05/2015
--- OUTSIDE RECORDS SUMMARY | 2018-10-30 16:53 | XMS REPORT ---
Author Author JOSÉ LUIS RODRÍGUEZ Organization [facility] Address [address] [place] [address] Care Team Providers Care Job Tracer Name Role Phone JOSÉ LUIS RODRÍGUEZ Unavailable PROBLEMS Type Condition ICD9-CM Code OCL06-UX Code Onset Dates Condition Status SNOMED Code Problem Chronic pain G89.29 Active 60859254 Problem Family history of diabetes mellitus Z83.3 Active 980474069 Problem Hypertriglyceridemia E78.1 Active 039701133 Problem History of MRSA infection Z86.14 Active 477825049 Problem Insomnia, unspecified type G47.00 Active 988190932 Problem Primary insomnia F51.01 Active 6711306 Problem Osteoarthritis M19.90 Active 923049380 Problem 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 Active 32446091 Problem Essential hypertension I10 Active 48721231 Problem Chronic obstructive pulmonary disease, unspecified COPD type J44.9 Active 86890906 ALLERGIES No Known Allergies ENCOUNTERS Encounter Location Date Diagnosis [place] [id number] [place] [address] 25029- 8152 Apr, [place] [id number] [place] [address] 11929- 4558 March, Insomnia, unspecified type G47.00 [facility] [id number] [place] [address] 95642- 5172 Feb, Chronic pain G89.29 [facility] [id number] [place] [address] 01639- 7247 Feb, Chronic pain G89.29 [facility] [id number] [place] [address] 74105- 7079 Jan, Chronic pain G89.29 [facility] [id number] [place] [address] 11684- 2863 Dec, Chronic pain G89.29 [facility] [address], [place] [address] 3574 Nov, Chronic pain G89.29 and Insomnia, unspecified type G47.00 [facility] [id number] [place] [address] 71017- 6724 Oct, Insomnia, unspecified type G47.00 ; Chronic pain G89.29 and Colon cancer screening Z12.11 [place] [id number] [place] [address] 05478- 9726 Oct, Chronic pain G89.29 [place] [id number] [place] [address] 34737- 6305 Sep, Chronic pain G89.29 and Insomnia, unspecified type G47.00 [place] [id number] [place] [address] 59805- 5377 Sep, Chronic pain G89.29 [place] [id number] [place] [address] 91681- 5040 Sep, [place] [id number] [place] [address] 55287- 2528 Aug, Medicare welcome exam Z00.00 ; Encounter for immunization Z23 ; Colon cancer screening Z12.11 and Encounter for screening for lung cancer Z12.2 [place] [id number] [place] [address] 80693- 2342 Aug, [place] [id number] [place] [address] 00692- 1135 Aug, Chronic pain G89.29 and Insomnia, unspecified type G47.00 [place] [id number] [place] [address] 62178- 1393 Aug, Hypertriglyceridemia E78.1 [place] [address] [address]- 5161 Jul, Chronic pain G89.29 and Insomnia, unspecified type G47.00 [place] [id number] [place] [address] 29910- 9707 Jun, Hypertriglyceridemia E78.1 [facility] [address] 55098- 3405 Jun, Chronic pain G89.29 and Insomnia, unspecified type G47.00 [facility] [address] 16842- 3157 Jun, [facility] [address] 16549- 5560 Jun, [place] [address] 33272- 3915 May, 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 ; Chronic pain G89.29 ; Insomnia, unspecified type G47.00 and Rash R21 [place] [address] 66205- 5758 May, Chronic pain G89.29 [facility] [id number] [place] [address] 39460- 4120 May, Hypertriglyceridemia E78.1 [place] [address] 40146- 3223 Apr, Chronic pain G89.29 [place] [id number] [place] [address] 23046- 5592 Apr, Chronic pain G89.29 ; 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 ; Hypertriglyceridemia E78.1 and Primary insomnia F51.01 [facility] [id number] [place] [address] 81812- 2874 March, Chronic pain G89.29 [place] [address] 22786- 8216 March, Chronic pain G89.29 [facility] [id number] [place] [address] 43372- 5717 Feb, [facility] [address] 34921- 1004 Feb, Chronic pain G89.29 [facility] [id number] [place] [address] 71400- 8168 Jan, Chronic pain G89.29 [facility] [id number] [place] [address] 34855- 6215 07 Dec, 2016 Chronic pain G89.29 [facility] [id number] [place] [address] 87104- 7648 Dec, [facility] [id number] [place] [address] 06569- 2489 Nov, Hypertriglyceridemia E78.1 [facility] [id number] [place] [address] 71840- 0752 Nov, [facility] [id number] [place] [address] 20972- 6949 Nov, Chronic pain G89.29 ; Hypertriglyceridemia E78.1 and Chronic obstructive pulmonary disease, unspecified COPD type J44.9 [facility] [id number] [place] [address] 31072- 8197 Nov, Chronic pain G89.29 [facility] [id number] [place] [address] 92944- 0981 Oct, Chronic pain G89.29 [facility] [address] [place] [address] 65033- 8847 Oct, [facility] [address] [place] [address] 54146- 3933 Sep, Chronic obstructive pulmonary disease, unspecified COPD type J44.9 and Abscess L02.91 [facility] [id number] [place] [address] 80367- 9005 16 Sep, 2016 Chronic pain G89.29 [facility] [address] [place] [address] 97811- 3293 Aug, Chronic pain G89.29 [facility] [id number] [place] [address] 82900- 9282 Aug, Chronic pain G89.29 [facility] [address] 31690- 8695 Aug, Cutaneous horn L85.8 and Skin tag L91.8 [facility] [address] 52580- 6245 Jul, [facility] [address] 51247- 6359 Jul, Hypertriglyceridemia E78.1 [place] [address] 03619- 0165 07 Jul, 2016 Other chronic pain G89.29 ; Essential hypertension I10 ; 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 ; Hyperlipidemia, unspecified hyperlipidemia type E78.5 and Cutaneous horn L85.8 [facility] [address] 95092- 6275 Jun, Chronic pain G89.29 [facility] [address] 71729- 5377 May, Chronic pain G89.29 [facility] [id number] [place] [address] 78028- 0428 May, [facility] [id number] [place] [address] 09538- 2820 May, Skin infection L08.9 [facility] [address] 47470- 7499 Apr, Chronic pain G89.29 [facility] [address] 36231- 5530 Apr, [facility] [address] 90311- 5083 Apr, Chronic pain G89.29 [facility] [address] 44719- 9513 March, [facility] [address] [place] [address] 10001- 3300 Feb, Chronic pain G89.29 ; 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 and Hypertriglyceridemia E78.1 [facility] [id number] [place] [address] 76799- 0603 Feb, [facility] [id number] [place] [address] 11396- 0448 Jan, [facility] [id number] [place] [address] 77854- 4028 Dec, [facility] [id number] [place] [address] 61673- 9126 Nov, [facility] [id number] [place] [address] 21429- 1077 Oct, [facility] [id number] [place] [address] 55359- 0176 Oct, 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 [facility] [id number] [place] [address] 15577- 7814 Oct, Other chronic pain G89.29 ; Chronic obstructive pulmonary disease, unspecified COPD type J44.9 ; Insomnia, unspecified type G47.00 ; 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 and Essential hypertension I10 [facility] [address] [place] [address] 68347- 2339 Sep, [facility] [id number] [place] [address] 98099- 6690 Aug, [facility] [id number] [place] [address] 20065- 8838 30 Jul, 2015 [facility] [id number] [place] [address] 10929- 6170 14 Jul, 2015 [facility] [address] [place] [address] 76271- 5745 14 Jul, 2015 Overweight 278.02 and Hyperinsulinemia 251.1 [facility] [id number] [place] [address] 16717- 0740 Jul, [facility] [id number] [place] [address] 67362- 0057 Jun, Skin tags, multiple acquired 701.9 [facility] [id number] [place] [address] 38406- 1846 Jun, Other chronic pain 338.29 ; Erectile dysfunction 607.84 ; Hyperinsulinemia 251.1 and Hypertension 401.9 [facility] [id number] [place] [address] 69938- 5033 Jun, [facility] [address] 97395- 1370 Jun, [facility] [address] 71403- 3133 Jun, [facility] [address] 74140- 9947 May, Pure hyperglyceridemia 272.1 [facility] [id number] [place] [address] 21927- 5802 May, Pure hyperglyceridemia 272.1 [facility] [id number] [place] [address] 09712- 4517 May, [facility] [id number] [place] [address] 78094- 2663 May, Overgrown toenails 703.8 ; Seborrheic keratosis 702.19 ; Skin tag 701.9 ; Warts, genital 078.11 ; Cramps, extremity 729.82 ; Increased appetite 783.6 and Heat rash 705.1 [facility] [id number] [place] [address] 21448- 7009 May, [facility] [id number] [place] [address] 89321- 1848 Apr, [facility] [id number] [place] [address] 98217- 7807 08 Apr, 2015 [facility] [place] [facility] [address] [id number] [place] [address]- 6633 March, [facility] [place] [facility] [address] [id number] [place] [address]- 0535 14 Feb, 2015 [facility] [place] [facility] [address] [id number] [place] [address]- 0298 Feb, [facility] [place] [facility] [address] [id number] [place] [address]- 7026 27 Jan, 2015 [facility] [place] [facility] [address] [id number] [place] [address]- 7869 27 Jan, 2015 [facility] [place] [facility] [address] [id number] [place] [address]- 3799 27 Jan, 2015 [facility] [place] [facility] [address] [id number] [place] [address]- 6424 Jan, [facility] [place] [facility] [address] [id number] [place] [address]- 2252 Jan, [facility] [place] [facility] [address] [id number] [place] [address]- 7102 19 Jan, 2015 [facility] [place] [facility] [address] [id number] [place] [address]- 3567 16 Jan, 2015 [facility] [place] [facility] [address] [id number] [place] [address]- 4300 16 Jan, 2015 [facility] [place] [facility] [address] [id number] [place] [address]- 2044 10 Jan, 2015 [facility] [place] [facility] [address] [id number] [place] [address]- 0991 10 Jan, 2015 [facility] [place] [facility] [address] [id number] [place]- 4507 05 Jan, 2015 [facility] [place] [facility] [address] [id number] [place] [address]- 2277 05 Jan, 2015 [facility] [place] [facility] [address] [id number] [place] [address]- 6230 Dec, 2014 [facility] [place] [facility] [address] [id number] [place] [address]- 1462 Dec, 2014 [facility] [place] [facility] [address] [id number] [place] [address]- 2733 Dec, 2014 [facility] [place] [facility] [address] [id number] [place] [address]- 1780 Dec, 2014 [facility] [place] [facility] [address] [id number] [place] [address]- 2123 Dec, 2014 [facility] [place] [facility] [address] [id number] [place] [address]- 4451 Dec, 2014 [facility] [place] [facility] [address] [id number] [place] [address]- 6965 Dec, 2014 [facility] [place] [facility] [address] [id number] [place] [address]- 4283 Dec, 2014 [facility] [place] [facility] [address] [id number] [place] [address]- 9304 Nov, [facility] [place] [facility] [address] [id number] [place] [address]- 7433 Nov, [facility] [place] [facility] [address] [id number] [place] [address]- 7911 Nov, [facility] [place] [facility] [address] [id number], [place] [address]- 7054 Nov, [facility] [place] [facility] [address] [id number] [place] [address]- 0892 Nov, [facility] [place] [facility] [address] [id number] [place] [address]- 8518 Nov, [facility] [place] [facility] [address] [id number] [place] [address]- 8210 Nov, [facility] [place] [facility] [address] [id number], [place] [address]- 1165 Nov, [facility] [place] [facility] [address] [id number] [place] [address]- 3130 Oct, [facility] [place] [facility] [address] [id number], [place] [address]- 7337 Oct, [facility] [place] [facility] [address] [id number] [place] 8903 Sep, [facility] [place] [facility] [address] [id number] [place] 3942 Sep, [facility] [place] [facility] [address] [id number] [place] [address]- 5854 Sep, [facility] [place] [facility] [address] [id number] [place] [address]- 2255 Sep, [facility] [place] [facility] [address] [id number], [place] [address]- 0295 Aug, [facility] [place] [facility] [address] [id number] [place] [address]- 7600 Aug, [facility] [place] [facility] [address] [id number], [place] [address]- 7311 Aug, [facility] [place] [facility] [address] [id number], [place] [address]- 8761 Aug, [facility] [place] [facility] [address] [id number], [place] [address]- 4434 Aug, [facility] [place] [facility] [address] [id number], [place] [address]- 5849 Aug, [facility] [place] [facility] [address] [id number], [place] [address]- 9498 Aug, [facility] [place] [facility] [address] [id number], [place] [address]- 3606 Aug, [facility] [place] [facility] [address] [id number] [place] [address]- 5255 Jul, [facility] [place] [facility] [address] [id number] [place] [address]- 8222 Jul, [facility] [place] [facility] [address] [id number] [place] [address]- 9546 Jul, [facility] [place] [facility] [address] [id number] [place] [address]- 8086 Jul, [facility] [place] [facility] [address] [id number] [place] [address]- 6484 Jul, [facility] [place] [facility] [address] [id number] [place] [address]- 8758 Jun, [facility] [place] [facility] [address] [id number] [place] [address]- 2720 Jun, [facility] [place] [facility] [address] [id number] [place] [address]- 7981 Jun, [facility] [place] [facility] [address] [id number] [place] [address]- 6777 Jun, [facility] [place] [facility] [address] [id number] [place] [address]- 8114 Jun, [facility] [place] [facility] [address] [id number] [place] [address]- 7104 Jun, [facility] [place] [facility] [address] [id number] [place] [address]- 5222 May, [facility] [place] [facility] [address] [id number] [place] [address]- 7796 May, [facility] [place] [facility] [address] [id number] [place] [address]- 0228 May, [facility] [place] [facility] [address] [id number] [place] [address]- 6786 May, [facility] [place] [facility] [address] [id number] [place] [address]- 7333 Apr, [facility] [place] [facility] [address] [id number] [place] [address]- 2827 Apr, [facility] [place] [facility] [address] [id number] [place] [address]- 4910 Apr, [facility] [place] [facility] [address] [id number] [place] [address]- 8111 Apr, [facility] [place] [facility] [address] [id number] [place] [address]- 5380 Apr, [facility] [place] [facility] [address] [id number] [place] [address]- 5468 Apr, [facility] [place] [facility] [address] [id number] [place] [address]- 7651 March, [facility] [place] [facility] [address] [id number] [place] [address]- 1598 March, [facility] [place] [facility] [address] [id number] [place] [address]- 7139 March, [facility] [place] [facility] [address] [id number] [place] [address]- 8205 March, [facility] [place] [facility] [address] [id number] [place] [address]- 0723 Feb, [facility] [place] [facility] [address] [id number] [place] [address]- 3588 Feb, [facility] [place] [facility] [address] [id number] [place] [address]- 2355 Feb, [facility] [place] [facility] [address] [id number] [place] [address]- 5865 Feb, [facility] [place] [facility] [address] [id number] [place] [address]- 4047 Feb, [facility] [place] [facility] [address] [id number] [place] [address]- 6354 Feb, [facility] [place] [facility] [address] [id number] [place] [address]- 9735 Feb, [facility] [place] [facility] [address] [id number] [place] [address]- 8732 Feb, [facility] [place] [facility] [address] [id number] [place] [address]- 2837 Feb, [facility] [place] [facility] [address] [id number] [place] [address]- 1716 Feb, [facility] [place] [facility] [address] [id number] [place] [address]- 6376 Feb, [facility] [place] [facility] [address] [id number] [place] [address]- 4773 Feb, [facility] [place] [facility] [address] [id number] [place] [address]- 3674 Feb, [facility] [place] [facility] [address] [id number] [place] [address]- 0144 Feb, [facility] [place] [facility] [address] [id number] [place] [address]- 2710 Feb, [facility] [place] [facility] [address] [id number] [place] [address]- 9486 Feb, [facility] [place] [facility] [address] [id number] [place] [address]- 4209 Jan, [facility] [place] [facility] [address] [facility] [id number] [place] [address]- 0993 Jan, [facility] [place] [facility] [address] [id number] [place] [address]- 3594 Dec, [facility] [place] [facility] [address] [id number] [place] [address]- 0117 Dec, [facility] [place] [facility] [address] [id number] [place] [address]- 2592 Dec, [facility] [place] [facility] [address] [id number] [place] [address]- 1331 Dec, [facility] [place] [facility] [address] [id number] [place] [address]- 4340 Dec, [facility] [place] [facility] [address] [id number] [place] [address]- 8219 Dec, [facility] [place] [facility] [address] [id number] [place] [address]- 3216 Dec, [facility] [place] [facility] [address] [id number] [place] [address]- 9261 Nov, [facility] [place] [facility] [address] [id number] [place] [address]- 6951 Nov, [facility] [place] [facility] [address] [id number] [place] [address] Nov, [facility] [place] [facility] [address] [id number] [place] [address] Nov, [facility] [place] [facility] [address] [id number] [place] [address] Oct, [facility] [place] [facility] [address] [id number] [place] [address] Oct, [facility] [place] [facility] [address] [id number] [place] [address] Sep, [facility] [place] [facility] [address] [id number], [place] [address] Sep, [facility] [place] [facility] [address] [id number], [place] [address] Aug, [facility] [place] [facility] [address] [id number], [place] [address] Aug, [facility] [place] [facility] [address] [id number] [place] [address] Aug, [facility] [place] [facility] [address] [id number] [place] [address] Aug, [facility] [place] [facility] [address] [id number], [place] [address] Aug, [facility] [place] [facility] [address] [id number] [place] [address] Aug, [facility] [address] [id number] [place] [address] Aug, [facility] [place] [facility] [address] [id number] [place] [address] Aug, [facility] [address] [id number] [place] [address] Aug, [facility] [place] [facility] [address] [id number] [place] [address] Aug, [facility] [address] [id number] [place] [address] Jun, [facility] [place] [facility] [address] [id number] [place] [address] Jun, [facility] [address] [id number], [place] [address] May, [facility] [place] [facility] [address] [id number] [place] [address] Apr, [facility] [place] [facility] [address] [id number] [place] [address] Apr, [facility] [place] [facility] [address] [id number] [place] [address] March, [facility] [place] [facility] [address] [id number] [place] [address] Feb, [facility] [place] [facility] [address] [id number], [place] [address] Jan, [facility] [place] [facility] [address] [id number], [place] [address] Jan, [facility] [place] [facility] [address] [id number], [place] [address] Dec, [facility] [place] [facility] [address] [id number], [place] [address] Dec, [facility] [address] [facility] [id number] [place] [address] Nov, [facility] [address] [facility] [id number] [place] [address] Jul, [facility] [address] [facility] [id number] [place] [address] Jul, [facility] [address] [facility] [id number] [place] [address] Jun, [facility] [address] [facility] [id number] [place] [address] May, [facility] [address] [facility] [id number] [place] [address] May, [facility] [id number] [address] May, [facility] [id number] [address] May, [facility] [address] [id number] [address] May, [facility] [id number], [place] [address] May, [facility] [id number], [place] [address] May, [facility] [id number], [place] [address] Apr, [facility] [address] [id number], [place] [address] Apr, [facility] [id number], [place] [address] Apr, [facility] [address] [id number], [place] [address] Apr, IMMUNIZATIONS Vaccine Route Administration Date Status TDAP (BOOSTRIX) IM Intramuscular Sep 23, 2017 Administered PCV 13 IM Intramuscular Sep 23, 2017 Administered SOCIAL HISTORY Never Assessed REASON FOR VISIT medicare physical--Zofia Hebert MA PLAN OF CARE Activity Details Follow Up annually for preventive care, sooner for chronic health maintenance Reason: Pending Test CT Scan : Chest, low dose VITAL SIGNS Height 66 in 2017-09-23 Weight 248.5 lbs 2017-09-23 Temperature 87.8 degrees Fahrenheit 2017-09-23 Heart Rate 76 bpm 2017-09-23 Respiratory Rate 20 2017-09-23 BMI 40.10 kg/m2 2017-09-23 Blood pressure systolic 128 mmHg 2017-09-23 Blood pressure diastolic 72 mmHg 2017-09-23 MEDICATIONS Medication Instructions Dosage Frequency Start Date End Date Duration Status Viagra 100 MG Orally Once a day prn 1 tablet as needed 10 Active Oxygen N/A 1 1/2 l at hs Once a day as directed 24h 17 Oct, 2015 Active MetFORMIN HCl ER 500 MG Orally twice a day 2 tablets with meals 12h 90 days Active Lipitor 40 MG Orally Once a day 1 tablet 24h 90 Active Breo Ellipta 100-25 MCG/INH Inhalation Once a day 1 puff 24h Jun, Active Ezetimibe 10 MG Orally Once a day 1 tablet 24h Jun, 30 days Active Hydrocodone-Acetaminophen 10-325 MG Orally 4 times a day 1 tablet as needed for pain 6h Aug, 28 days Active Ambien 5 MG Orally Once a day 0.5 - 1 tablet at bedtime 24h May, 28 days Active RESULTS Name Result Date Reference Range COLOGUARD (OUTSIDE ORDER) 2017-09-23 PROCEDURES Procedure Date Ordered Result Body Site INIT PREV PE LTD DUR 1ST 12 MOS MCR Sep 23, 2017 PCV 13 Sep 23, 2017 SINGLE IMMUNIZATION ADMIN Sep 23, 2017 TDAP (BOOSTRIX) Sep 23, 2017 IMMUNIZATION ADMIN, EACH ADD (please include units) Sep 23, 2017 INSTRUCTIONS MEDICATIONS ADMINISTERED No Known Medications MEDICAL (GENERAL) HISTORY Type Description Date Medical History hypogonadism Medical History hyperlipidemia Medical History pre-diabetic Medical History chronic pain Medical History COPD Surgical History skin cancer 1999 Hospitalization History surgery Hospitalization History MRSA infection 05/2015
--- OUTSIDE RECORDS SUMMARY | 2018-10-30 16:53 | XMS REPORT ---
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 Active 19298708 Problem Family history of diabetes mellitus V18.0 Active 984143283 Problem Umbilical hernia without mention of obstruction or gangrene 553.1 Active 374932275 Problem Chronic pain G89.29 Active 19497121 Problem Hypertriglyceridemia E78.1 Active 154287831 Problem Osteoarthritis M19.90 Active 221088483 Problem History of MRSA infection Z86.14 Active 156234403 Problem 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 Active 81291598 Problem Family history of diabetes mellitus Z83.3 Active 510226352 Problem Family history of malignant neoplasm, prostate V16.42 Active 063512095 Problem Family history of malignant neoplasm of gastrointestinal tract V16.0 Active 761271590 Problem Essential hypertension, benign 401.1 Active 4994784 Problem Other chronic pain 338.29 Active 37078183 Problem Chronic airway obstruction, not elsewhere classified 496 Active 77510945 Problem Persistent disorder of initiating or maintaining sleep 307.42 Active 43697829 ALLERGIES Unknown Allergies SOCIAL HISTORY No smoking Hx information available PLAN OF CARE VITAL SIGNS MEDICATIONS Medication Instructions Dosage Frequency Start Date End Date Duration Status Hydrocodone-Acetaminophen 10-325 MG Orally 4 times a day 1 tablet as needed for pain 6h Jan, 28 days Active RESULTS No Results PROCEDURES No Known procedures IMMUNIZATIONS No Known Immunizations
--- OUTSIDE RECORDS SUMMARY | 2018-10-30 16:53 | XMS REPORT ---
Author Author JOSÉ LUIS RODRÍGUEZ [facility] Address [address] [place] [address] Care Team Providers Care Reclamation Kettle Tender Name Role Phone JOSÉ LUIS RODRÍGUEZ Unavailable PROBLEMS Type Condition ICD9-CM Code [id number] Code Onset Dates Condition Status SNOMED Code Problem Chronic pain G89.29 Active 28390500 Problem Family history of diabetes mellitus Z83.3 Active 425289699 Problem Hypertriglyceridemia E78.1 Active 095143264 Problem History of MRSA infection Z86.14 Active 188451466 Problem Insomnia, unspecified type G47.00 Active 508955067 Problem Primary insomnia F51.01 Active 8441474 Problem Osteoarthritis M19.90 Active 182343985 Problem 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 Active 38491785 Problem Essential hypertension I10 Active 18556992 Problem Chronic obstructive pulmonary disease, unspecified COPD type J44.9 Active 93177266 ALLERGIES Unknown Allergies SOCIAL HISTORY No smoking Hx information available PLAN OF CARE VITAL SIGNS MEDICATIONS Unknown Medications RESULTS No Results PROCEDURES No Known procedures IMMUNIZATIONS No Known Immunizations
--- OUTSIDE RECORDS SUMMARY | 2018-10-30 16:53 | XMS REPORT ---
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 Name Role Phone JOSÉ LUIS RODRÍGUEZ Unavailable PROBLEMS Type Condition ICD9-CM Code [id number] Code Onset Dates Condition Status SNOMED Code Problem Chronic pain G89.29 Active 70863628 Problem Family history of diabetes mellitus Z83.3 Active 081190088 Problem Hypertriglyceridemia E78.1 Active 660470644 Problem History of MRSA infection Z86.14 Active 258207306 Problem Insomnia, unspecified type G47.00 Active 745421407 Problem Primary insomnia F51.01 Active 6587997 Problem Osteoarthritis M19.90 Active 275600328 Problem 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 Active 78097955 Problem Essential hypertension I10 Active 03552678 Problem Chronic obstructive pulmonary disease, unspecified COPD type J44.9 Active 34909783 ALLERGIES Substance Reaction Event Type Date Status N.K.D.A. Unknown Non Drug Allergy Nov, Unknown SOCIAL HISTORY No smoking Hx information available PLAN OF CARE Activity Details Follow Up 4 Months Reason:chronic pain VITAL SIGNS Height 66 in 2016-12-22 Weight 240 lbs 2016-12-22 Temperature 98.0 degrees Fahrenheit 2016-12-22 Heart Rate 68 bpm 2016-12-22 Respiratory Rate 18 2016-12-22 BMI 38.73 kg/m2 2016-12-22 Blood pressure systolic 130 mmHg 2016-12-22 Blood pressure diastolic 72 mmHg 2016-12-22 MEDICATIONS Medication Instructions Dosage Frequency Start Date End Date Duration Status MetFORMIN HCl ER 500 MG Orally twice a day 2 tablets 12h 30 Active Zetia 10 mg Orally Once a day 1 tablet 24h 09 Jul, 2016 30 day(s) Active Lipitor 40 mg Orally Once a day 1 tablet 24h 90 Active Viagra 100 MG Orally Once a day prn 1 tablet as needed 10 Active Oxygen N/A 1 1/2 l at hs Once a day as directed 24h Oct, Active Stiolto Respimat 2.5-2.5 MCG/ACT Inhalation Once a day 2 samples given 2 puffs Oct, Active Symbicort 160-4.5 MCG/ACT INHALE TWO PUFFS BY MOUTH TWICE DAILY IN THE MORNING AND EVENING Active Hydrocodone-Acetaminophen 10-325 MG Orally 4 times a day 1 tablet as needed for pain 6h Nov, 28 days Active RESULTS Name Result Date Reference Range LIPID PANEL 2016-12-22 Cholesterol, Total 237 100-199 Triglycerides 637 0-149 HDL Cholesterol 22 >39 VLDL Cholesterol Lisandro 5-40 LDL Cholesterol Calc 0-99 Comment: PROCEDURES Procedure Date Ordered Related Diagnosis Body Site LIPID PANEL Dec 22, 2016 Office Visit, Est Pt., Level 3 Dec 22, 2016 VENIPUNCT, ROUTINE* Dec 22, 2016 IMMUNIZATIONS No Known Immunizations
--- OUTSIDE RECORDS SUMMARY | 2018-10-30 16:54 | XMS REPORT ---
Author Author JOSÉ LUIS RODRÍGUEZ [facility] Address [address] [place] [address] Care Team Providers Care Pacs Administrator Name Role Phone JOSÉ LUIS RODRÍGUEZ Unavailable PROBLEMS Type Condition ICD9-CM Code [id number] Code Onset Dates Condition Status SNOMED Code Problem Chronic pain G89.29 Active 00691108 Problem Family history of diabetes mellitus Z83.3 Active 505883493 Problem Hypertriglyceridemia E78.1 Active 550849592 Problem History of MRSA infection Z86.14 Active 718609451 Problem Insomnia, unspecified type G47.00 Active 266753721 Problem Primary insomnia F51.01 Active 7553687 Problem Osteoarthritis M19.90 Active 107252711 Problem 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 Active 61694486 Problem Essential hypertension I10 Active 67868341 Problem Chronic obstructive pulmonary disease, unspecified COPD type J44.9 Active 79534530 ALLERGIES Unknown Allergies SOCIAL HISTORY No smoking Hx information available PLAN OF CARE VITAL SIGNS MEDICATIONS Unknown Medications RESULTS No Results PROCEDURES No Known procedures IMMUNIZATIONS No Known Immunizations
--- OUTSIDE RECORDS SUMMARY | 2018-10-30 16:54 | XMS REPORT ---
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
--- OUTSIDE RECORDS SUMMARY | 2018-10-30 16:54 | XMS REPORT ---
Author Author JOSÉ LUIS RODRÍGUEZ Organization [facility] [place] Address [address] [place] [address] Care Team Providers Care Speed Belt Sander Tender Name Role Phone JOSÉ LUIS RODRÍGUEZ Unavailable PROBLEMS Type Condition ICD9-CM Code KLZ68-TP Code Onset Dates Condition Status SNOMED Code Problem Chronic pain G89.29 Active 79013667 Problem Family history of diabetes mellitus Z83.3 Active 530743532 Problem Hypertriglyceridemia E78.1 Active 671189506 Problem History of MRSA infection Z86.14 Active 652697222 Problem Insomnia, unspecified type G47.00 Active 333998859 Problem Primary insomnia F51.01 Active 2872733 Problem Osteoarthritis M19.90 Active 878195267 Problem 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 Active 28720902 Problem Essential hypertension I10 Active 00946355 Problem Chronic obstructive pulmonary disease, unspecified COPD type J44.9 Active [id number] ALLERGIES No Known Allergies ENCOUNTERS Encounter Location Date Diagnosis [place] [address] [address]24- 6587 Apr, [place] [address] 65150- 0867 March, Chronic pain G89.29 and Insomnia, unspecified type G47.00 [facility] [place] [address] [place] [id number] [place] [address] 74532- 2345 March, Insomnia, unspecified type G47.00 [place] [address] [place] [id number] [place] [address] 26087- 1062 Feb, Chronic pain G89.29 [place] [address] 86686- 4754 Feb, Chronic pain G89.29 [facility] [place] [address] 37994- 5121 Jan, Chronic pain G89.29 [facility] [place] [address] [place] [id number] [place] [address] 53873- 6108 Dec, Chronic pain G89.29 [facility] [place] [address] [place] [id number] [place] [address] 36005- 5360 Nov, Chronic pain G89.29 and Insomnia, unspecified type G47.00 [facility] [place] [address] [place] [id number] [place] [address] 81617- 8603 Oct, Insomnia, unspecified type G47.00 ; Chronic pain G89.29 and Colon cancer screening Z12.11 [facility] [place] [address] [place] [id number] [place] [address] 31212- 6453 Oct, Chronic pain G89.29 [place] [address] [place] [id number] [place] [address] 40215- 0046 Sep, Chronic pain G89.29 and Insomnia, unspecified type G47.00 [facility] [place] [address] [place] [id number] [place] [address] 38842- 2729 Sep, Chronic pain G89.29 [facility] [place] [address] [place] [id number] [place] [address] 57799- 1091 Sep, [facility] [place] [address] [place] [id number] [place] [address] 98801- 4445 Aug, Medicare welcome exam Z00.00 ; Encounter for immunization Z23 ; Colon cancer screening Z12.11 and Encounter for screening for lung cancer Z12.2 [facility] [place] [address] [address] 5771 Aug, [facility] [place] [address] [place] [id number] [place] [address] 57029- 4894 Aug, Chronic pain G89.29 and Insomnia, unspecified type G47.00 [facility] [place] [address] [place] [id number] [address] 7098 Aug, Hypertriglyceridemia E78.1 [place] [address] [place] [id number] [place] [address] 64575- 2451 Jul, Chronic pain G89.29 and Insomnia, unspecified type G47.00 [facility] [place] [address] [place] [id number] [place] [address] 06006- 8004 Jun, Hypertriglyceridemia E78.1 [facility] [place] [address] [place] [id number] [place] [address] 52843- 1452 Jun, Chronic pain G89.29 and Insomnia, unspecified type G47.00 [facility] [place] [address] [place] [id number] [place] [address] 61518- 8096 Jun, [facility] [place] [address] 86570- 2905 Jun, [place] [address] 06283- 9224 May, 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 ; Chronic pain G89.29 ; Insomnia, unspecified type G47.00 and Rash R21 [place] [address] [place] [id number] [place] [address] 44249- 9126 May, Chronic pain G89.29 [facility] [place] [address] [place] [id number] [place] [address] 25385- 9632 May, Hypertriglyceridemia E78.1 [place] [address] [place] [id number] [place] [address] 02532- 0784 Apr, Chronic pain G89.29 [facility] [place] [address] [place] [id number] [place] [address] 44932- 1519 Apr, Chronic pain G89.29 ; 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 ; Hypertriglyceridemia E78.1 and Primary insomnia F51.01 [facility] [place] [address] [place] [id number] [place] [address] 86002- 6093 March, Chronic pain G89.29 [facility] [place] [address] [place] [id number] [place] [address] 46431- 2578 March, Chronic pain G89.29 [facility] [place] [address] [address]- 7612 Feb, [facility] [place] [address] [place] [id number] [place] [address] 52326- 9252 Feb, Chronic pain G89.29 [facility] [place] [address] [place] [address] 28272- 1190 Jan, Chronic pain G89.29 [facility] [place] [address] [place] [id number] [place] [address] 49572- 2381 Dec, Chronic pain G89.29 [facility] [place] [address] [place] [id number] [place] [address] 18421- 2296 Dec, [facility] [place] [address] [place] [id number] [place] [address] 56077- 2130 Nov, Hypertriglyceridemia E78.1 [facility] [place] [address] [place] [id number] [place] [address] 67928- 0708 Nov, [facility] [place] [address] [place] [address] 79293- 1700 Nov, Chronic pain G89.29 ; Hypertriglyceridemia E78.1 and Chronic obstructive pulmonary disease, unspecified COPD type J44.9 [facility] [place] [address] [place] [address] 14751- 2077 Nov, Chronic pain G89.29 [facility] [place] [address] [place] [id number] [place] [address] 94094- 4864 Oct, Chronic pain G89.29 [facility] [place] [address] [address]- 5089 Oct, [facility] [place] [address] [place] [id number] [place] [address] 17305- 0234 Sep, Chronic obstructive pulmonary disease, unspecified COPD type J44.9 and Abscess L02.91 [facility] [place] [address] [place] [address] 20525- 9385 Sep, Chronic pain G89.29 [facility] [place] [address] [place] [id number] [place] [address] 62107- 0428 Aug, Chronic pain G89.29 [facility] [place] [address] [place] [id number] [place] [address] 74932- 2526 Aug, Chronic pain G89.29 [facility] [place] [address] [place] [id number] [place] [address] 10368- 9811 Aug, Cutaneous horn L85.8 and Skin tag L91.8 [facility] [place] [address] [place] [id number] [place] [address] 77129- 4925 Jul, [facility] [place] [address] 13847- 8286 Jul, Hypertriglyceridemia E78.1 [facility] [place] [address] [place] [id number] [place] [address] 86547- 0961 Jul, Other chronic pain G89.29 ; Essential hypertension I10 ; 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 ; Hyperlipidemia, unspecified hyperlipidemia type E78.5 and Cutaneous horn L85.8 [facility] [place] [address] [place] [id number] [place] [address] 48976- 5813 Jun, Chronic pain G89.29 [facility] [place] [address] [place] [id number] [place] [address] 41259- 5693 May, Chronic pain G89.29 [facility] [place] [address] [place] [id number] [place] [address] 15047- 2322 May, [facility] [place] [address] [place] [id number] [place] [address] 70426- 2312 05 May, 2016 Skin infection L08.9 [facility] [place] [address] [place] [id number] [place] [address] 97201- 7584 Apr, Chronic pain G89.29 [facility] [place] [address] [place] [id number] [place] [address] 45685- 9986 14 Apr, 2016 [facility] [place] [address] 56618- 6441 Apr, Chronic pain G89.29 [facility] [place] [address] [place] [id number] [place] [address] 85276- 4602 March, [facility] [place] [address] [place] [id number] [place] [address] 74317- 5889 Feb, Chronic pain G89.29 ; 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 and Hypertriglyceridemia E78.1 [facility] [place] [address] 86021- 5988 Feb, [facility] [place] [address] [place] [id number] [place] [address] 56301- 4217 Jan, [facility] [place] [address] 33117- 2003 Dec, [facility] [place] [address] 05805- 8238 Nov, [facility] [place] [address] [place] [id number] [place] [address] 93476- 7601 Oct, [facility] [place] [address] [place] [id number] [place] [address] 56797- 5124 Oct, 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 [facility] [place] [address] [place] [id number] [place] [address] 02274- 9298 Oct, Other chronic pain G89.29 ; Chronic obstructive pulmonary disease, unspecified COPD type J44.9 ; Insomnia, unspecified type G47.00 ; 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 and Essential hypertension I10 [facility] [place] [address] [place] [id number] [place] [address] 09922- 9015 Sep, [facility] [place] [address] [place] [id number] [place] [address] 60667- 5227 Aug, [facility] [place] [address] [place] [id number] [place] [address] 96123- 0368 30 Jul, 2015 [facility] [place] [address] [place] [id number] [place] [address] 64328- 7938 14 Jul, 2015 [place] [address] [place] [id number] [place] [address] 23311- 8207 Jul, Overweight 278.02 and Hyperinsulinemia 251.1 [place] [address] 48007- 7795 Jul, [facility] [place] [address] 96255- 7614 Jun, Skin tags, multiple acquired 701.9 [facility] [place] [address] 83231- 2312 Jun, Other chronic pain 338.29 ; Erectile dysfunction 607.84 ; Hyperinsulinemia 251.1 and Hypertension 401.9 [place] [address] 70599- 8124 Jun, [facility] [place] [address] 47894- 0321 Jun, [facility] [place] [address] 23741- 8107 Jun, [facility] [place] [address] 55452- 4040 May, Pure hyperglyceridemia 272.1 [place] [address] [place] [id number] [place] [address] 03775- 8386 May, Pure hyperglyceridemia 272.1 [place] [address] 21737- 4963 May, [facility] [place] [address] 68963- 3332 May, Overgrown toenails 703.8 ; Seborrheic keratosis 702.19 ; Skin tag 701.9 ; Warts, genital 078.11 ; Cramps, extremity 729.82 ; Increased appetite 783.6 and Heat rash 705.1 [place] [id number] [place] [address] 34811- 7463 May, [facility] [place] [facility] [address] [id number] [place] [address]- 7439 11 Apr, 2015 [facility] [place] [facility] [address] [id number] [place] [address]- 1672 08 Apr, 2015 [facility] [place] [facility] [address] [id number] [place] [address]- 8226 March, [facility] [place] [facility] [address] [id number] [place] [address]- 2662 14 Feb, 2015 [facility] [place] [facility] [address] [id number] [place] [address]- 3997 Feb, [facility] [place] [facility] [address] [id number] [place] [address]- 4907 27 Jan, 2015 [facility] [place] [facility] [address] [id number] [place] [address]- 7128 27 Jan, 2015 [facility] [place] [facility] [address] [id number] [place] [address]- 9516 27 Jan, 2015 [facility] [place] [facility] [address] [id number] [place] [address]- 6935 27 Jan, 2015 [facility] [place] [facility] [address] [id number] [place] [address]- 7571 19 Jan, 2015 [facility] [place] [facility] [address] [id number] [place] [address]- 9581 19 Jan, 2015 [facility] [place] [facility] [address] [id number] [place] [address]- 8041 16 Jan, 2015 [facility] [place] [facility] [address] [id number] [place] [address]- 4315 16 Jan, 2015 [facility] [place] [facility] [address] [id number] [place] [address]- 6242 10 Jan, 2015 [facility] [place] [facility] [address] [id number] [place] [address]- 0081 10 Jan, 2015 [facility] [place] [facility] [address] [id number] [place] [address]- 6918 Jan, [facility] [place] [facility] [address] [id number] [place] [address]- 3346 Jan, [facility] [place] [facility] [address] [id number] [place] [address]- 2168 Dec, 2014 [facility] [place] [facility] [address] [facility] [id number] [place] [address]- 3631 Dec, 2014 [facility] [place] [facility] [address] [id number] [place] [address]- 5339 Dec, 2014 [facility] [place] [facility] [address] [id number] [place] [address]- 8133 Dec, 2014 [facility] [place] [facility] [address] [id number] [place] [address]- 8467 Dec, 2014 [facility] [place] [facility] [address] [facility] [id number] [place] [address]- 1831 Dec, 2014 [facility] [place] [facility] [address] [facility] [id number] [place] [address]- 0279 Dec, [facility] [place] [facility] [address] [facility] [id number] [place] [address]- 4096 Dec, [facility] [place] [facility] [address] [facility] [id number] [place] [address]- 1034 Nov, [facility] [place] [facility] [address] [facility] [id number] [place] [address]- 3609 Nov, [facility] [place] [facility] [address] [id number] [address]- 2622 Nov, [facility] [place] [facility] [address] [id number] [place] [address]- 6023 Nov, [facility] [place] [facility] [address] [facility] [id number] [place] [address]- 4254 Nov, [facility] [place] [facility] [address] [facility] [id number] [address]- 5936 Nov, [facility] [place] [facility] [address] [id number] [place] [address]- 4523 Nov, [facility] [place] [facility] [address] [id number] [place] [address]- 6888 Nov, [facility] [place] [facility] [address] [id number] [place] 7397 Oct, [facility] [place] [facility] [address] [id number] [place] [address]- 1818 Oct, [facility] [place] [facility] [address] [id number] [place] [address]- 9969 Sep, [facility] [place] [facility] [address] [id number] [place] [address]- 5335 Sep, [facility] [place] [facility] [address] [id number] [place] [address]- 2599 Sep, [facility] [place] [facility] [address] [id number] [place] [address]- 7399 Sep, [facility] [place] [facility] [address] [id number] [place] [address]- 0732 Aug, [facility] [place] [facility] [address] [id number] [place] [address]- 9336 Aug, [facility] [place] [facility] [address] [id number] [place] [address]- 5699 Aug, [facility] [place] [facility] [address] [id number] [place] [address]- 1620 Aug, [facility] [place] [facility] [address] [id number] [place] [address]- 7142 Aug, [facility] [place] [facility] [address] [id number] [place] [address]- 7236 Aug, [facility] [place] [facility] [address] [id number] [place] 9039 Aug, [facility] [place] [facility] [address] [id number] [place] [address]- 5971 Aug, [facility] [place] [facility] [address] [id number] [place] [address]- 4599 Jul, [facility] [place] [facility] [address] [id number] [place] [address]- 2966 Jul, [facility] [place] [facility] [address] [id number] [place] [address]- 9016 Jul, [facility] [place] [facility] [address] [id number] [place] [address]- 3071 Jul, [facility] [place] [facility] [address] [id number] [place] [address]- 1204 Jul, [facility] [place] [facility] [address] [id number] [place] [address]- 1723 Jun, [facility] [place] [facility] [address] [id number] [place] [address]- 5018 Jun, [facility] [place] [facility] [address] [id number] [place] [address]- 0998 Jun, [facility] [place] [facility] [address] [id number] [place] [address]- 8865 Jun, [facility] [place] [facility] [address] [id number] [place] [address]- 0024 Jun, [facility] [place] [facility] [address] [id number] [place] [address]- 5945 Jun, [facility] [place] [facility] [address] [id number] [place] [address]- 7767 May, [facility] [place] [facility] [address] [id number] [place] [address]- 3352 May, [facility] [place] [facility] [address] [id number] [place] [address]- 9528 May, [facility] [place] [facility] [address] [id number] [place] [address]- 2523 May, [facility] [place] [facility] [address] [id number] [place] [address]- 7829 Apr, [facility] [address] [id number] [place] [address]- 7293 Apr, [facility] [place] [facility] [address] [id number] [place] [address]- 8252 Apr, [facility] [place] [facility] [address] [id number] [place] [address]- 9145 Apr, [facility] [place] [facility] [address] [id number] [place] [address]- 1194 Apr, [facility] [place] [facility] [address] [id number] [place] [address]- 5126 Apr, [facility] [place] [facility] [address] [id number] [place] [address]- 1591 March, [facility] [address] [id number] [place] [address]- 5112 March, [facility] [address] [id number] [place] [address]- 1237 March, [facility] [place] [facility] [address] [id number] [place] [address]- 2715 March, [facility] [address] [id number] [place] [address]- 7406 Feb, [facility] [place] [facility] [address] [id number] [place] [address]- 7357 Feb, [facility] [place] [facility] [address] [id number] [place] [address]- 3738 Feb, [facility] [place] [facility] [address] [id number] [place] [address] Feb, [facility] [place] [facility] [address] [id number] [place] [address] Feb, [facility] [place] [facility] [address] [id number] [place] [address] Feb, [facility] [place] [facility] [address] [id number] [place] [address] Feb, [facility] [place] [facility] [address] [id number] [place] [address] Feb, [facility] [place] [facility] [address] [id number] [place] [address] Feb, [facility] [place] [facility] [address] [id number] [place] [address] Feb, [facility] [place] [facility] [address] [id number] [place] [address] Feb, [facility] [place] [facility] [address] [id number] [place] [address] Feb, [facility] [place] [facility] [address] [id number] [place] [address] Feb, [facility] [place] [facility] [address] [id number] [place] [address] Feb, [facility] [place] [facility] [address] [id number] [place] [address] Feb, [facility] [place] [facility] [address] [id number] [place] [address] Feb, [facility] [place] [facility] [address] [id number] [place] [address] Jan, [facility] [place] [facility] [address] [id number] [place] [address] Jan, [facility] [place] [facility] [address] [id number] [place] [address] Dec, [facility] [place] [facility] [address] [id number] [place] [address] Dec, [facility] [place] [facility] [address] [id number] [place] [address] Dec, [facility] [place] [facility] [address] [id number] [place] [address] Dec, [facility] [place] [facility] [address] [id number] [place] [address] Dec, [facility] [place] [facility] [address] [id number] [place] [address] Dec, [facility] [place] [facility] [address] [id number] [place] [address] Dec, [facility] [place] [facility] [address] [id number] [place] [address] Nov, [facility] [place] [facility] [address] [id number] [place] [address] Nov, [facility] [place] [facility] [address] [id number] [place] [address] Nov, [facility] [place] [facility] [address] [id number] [place] [address] Nov, [facility] [place] [facility] [address] [id number] [place] [address] Oct, [facility] [place] [facility] [address] [id number] [place] [address] Oct, [facility] [place] [facility] [address] [facility] [id number] [place] [address] Sep, [facility] [place] [facility] [address] [id number] [place] [address] Sep, [facility] [place] [facility] [address] [id number] [address] Aug, [facility] [place] [facility] [address] [id number] [place] [address] Aug, [facility] [place] [facility] [address] [id number] [place] [address] Aug, [facility] [place] [facility] [address] [id number] [place] [address] Aug, [facility] [place] [facility] [address] [id number] [place] [address] Aug, [facility] [place] [facility] [address] [id number] [place] [address] Aug, [facility] [place] [facility] [address] [id number] [place] [address] Aug, [facility] [place] [facility] [address] [id number] [place] [address] Aug, [facility] [address] [id number] [place] [address] Aug, [facility] [place] [facility] [address] [id number] [place] [address] Aug, [facility] [address] [id number] [place] [address] Jun, [facility] [place] [facility] [address] [id number] [place] [address] Jun, [facility] [place] [facility] [address] [id number] [place] [address] May, [facility] [place] [facility] [address] [id number] [place] [address] Apr, [facility] [place] [facility] [address] [id number] [place] [address] Apr, [facility] [place] [facility] [address] [id number], [place] [address] March, [facility] [place] [facility] [address] [id number] [place] [address] Feb, [facility] [place] [facility] [address] [id number] [place] [address] Jan, [facility] [place] [facility] [address] [id number] [place] [address]- [address]42 Jan, [facility] [place] [facility] [address] [id number] [place] [address] Dec, [facility] [address] [id number] [place] [address] Dec, [facility] [place] [facility] [address] [id number] [place] [address] Nov, [facility] [place] [facility] [address] [id number] [place] [address] Jul, [facility] [place] [facility] [address] [id number] [place] [address] Jul, [facility] [place] [facility] [address] [id number] [place] [address] Jun, [facility] [place] [facility] [address] [id number] [place] [address] May, [facility] [address] [id number] [place] [address] May, [facility] [place] [facility] [address] [id number] [place] [address] May, [facility] [address] [id number] [place] [address] May, [facility] [place] [facility] [address] [facility] [id number] [place] [address] May, [facility] [place] [facility] [address] [id number] [place] [address] May, [facility] [place] [facility] [address] [id number] [place] [address] May, [facility] [place] [facility] [address] [id number] [place] [address] Apr, [facility] [place] [facility] [address] [id number] [place] [address] Apr, [facility] [place] [facility] [address] [id number] [place] [address] Apr, [facility] [place] [facility] [address] [facility] [id number] [place] [address] Apr, IMMUNIZATIONS No Known Immunizations SOCIAL HISTORY Never Assessed REASON FOR VISIT hyperinsulin----DBennettRN PLAN OF CARE Activity Details Follow Up 4 Months Reason:hyperinsulin and fasting labs VITAL SIGNS Height 66 in 2017-11-16 Weight 250 lbs 2017-11-16 Temperature 97.8 degrees Fahrenheit 2017-11-16 Heart Rate 90 bpm 2017-11-16 Respiratory Rate 20 2017-11-16 BMI 40.35 kg/m2 2017-11-16 Blood pressure systolic 158 mmHg 2017-11-16 Blood pressure diastolic 76 mmHg 2017-11-16 MEDICATIONS Medication Instructions Dosage Frequency Start Date End Date Duration Status Viagra 100 MG Orally Once a day prn 1 tablet as needed 10 Active Oxygen N/A 1 1/2 l at hs Once a day as directed 24h 17 Oct, 2015 Active Breo Ellipta 100-25 MCG/INH Inhalation Once a day 1 puff 24h Jun, Active Triamcinolone Acetonide 0.5 % Externally Twice a day 1 application to affected area 12h May, Not-Taking Ezetimibe 10 MG Orally Once a day 1 tablet 24h Jun, 30 days Active MetFORMIN HCl ER 500 MG Orally twice a day 2 tablets 12h 30 Active Lipitor 40 MG Orally Once a day 1 tablet 24h 90 Active Ambien 10 mg Orally Once a day 1 tablet at bedtime 24h May, 28 days Active Symbicort 160-4.5 MCG/ACT INHALE TWO PUFFS BY MOUTH TWICE DAILY IN THE MORNING AND EVENING Not-Taking Hydrocodone-Acetaminophen 10-325 MG Orally 4 times a day 1 tablet as needed for pain 6h Oct, 28 days Active RESULTS No Results PROCEDURES No Known procedures INSTRUCTIONS MEDICATIONS ADMINISTERED No Known Medications MEDICAL (GENERAL) HISTORY Type Description Date Medical History hypogonadism Medical History hyperlipidemia Medical History pre-diabetic Medical History chronic pain Medical History COPD Surgical History skin cancer 1999 Hospitalization History surgery Hospitalization History MRSA infection 05/2015
--- OUTSIDE RECORDS SUMMARY | 2018-10-30 16:54 | XMS REPORT ---
Author Author JOSÉ LUIS RODRÍGUEZ [facility] eClinicalWorks Address Unknown Phone Unavailable Care Team Providers Care Bed Manager Name Role Phone JOSÉ LUIS RODRÍGUEZ CP [...] Start Date End Date Status Dosage Hydrocodone-Acetaminophen [facility] [address]-83 10-325 MG Orally 4 times a day February 15, 2015 1 tablet as needed for pain Results No Known Results Summary Purpose eClinicalWorks Submission
--- OUTSIDE RECORDS SUMMARY | 2018-10-30 16:54 | XMS REPORT ---
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 Info Not Available Non Drug Allergy Problems Problem Type Condition ICD-9 Code Onset Dates Condition Status Assessment Skin tags, multiple acquired 701.9 Active Problem Nondependent tobacco use disorder 305.1 Active Problem Basal cell carcinoma of skin, site unspecified 173.91 Active Problem Hematuria, unspecified 599.70 Active Problem Other malaise and fatigue 780.79 Active Problem Other dyspnea and respiratory abnormalities 786.09 Active Problem Generalized osteoarthrosis, 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.04 Active Problem Unspecified disorder of skin and subcutaneous tissue 709.9 Active Problem Pain in joint, forearm 719.43 Active Problem Other specified dermatoses 702.8 Active Problem Family history of diabetes mellitus V18.0 Active Problem Benign neoplasm of scalp and skin of neck 216.4 Active Problem Cervicalgia 723.1 Active Problem Hypertension 401.9 Active Problem Essential hypertension, benign 401.1 Active Problem Allergic rhinitis due to pollen 477.0 Active Problem Pure hyperglyceridemia 272.1 Active Problem Effusion of ankle and foot joint 719.07 Active Problem Umbilical hernia without mention of obstruction or gangrene 553.1 Active Problem Family history of malignant neoplasm of gastrointestinal tract V16.0 Active Problem Other chronic pain 338.29 Active Problem Chronic airway obstruction, not elsewhere classified 496 Active Problem Family history of malignant neoplasm, prostate V16.42 Active Problem Actinic keratosis 702.0 Active Problem Other seborrheic keratosis 702.19 Active Problem Edema 782.3 Active Problem Persistent disorder of initiating or maintaining sleep 307.42 Active Medications Medication Code System Code Instructions Start Date End Date Status Dosage MetFORMIN HCl ER [facility] [address]-31 500 MG Orally Once a day June 20, 2015 1 tablet at HS for 1 week then 1 tab BID Symbicort [facility] [address]-23 160-4.5 mcg/actuation Dec 12, 2014 inhale 2 puffs by inhalation route 2 times per day in the morning and evening Viagra [facility] [address]-24 100 MG Orally Once a day prn Jul 12, 2015Aug 1 tablet as needed Hydrocodone-Acetaminophen [facility] [address]-85 10-325 MG February 15, 2015 1 tablet by Oral route 3 times per day PRN Trulicity [facility] [address]-05 0.75 MG/0.5ML Subcutaneous Once a day 4 samples given Jul 12, 2015 Aug 11, 2015 0.5 ml Procedures Procedure Coding System Code Date REMOVE SKIN TAGS ADD-ON CPT-4 08632 Jul 17, 2015 Vital Signs Date/Time: Jul 17, 2015 Temperature 98.4 F Weight 228.9 lbs Height 66 in BMI 36.94 Index Blood Pressure Diastolic 78 mmHg Blood Pressure Systolic 118 mmHg Cardiac Monitoring Heart Rate 68 bpm Results No Known Results Summary Purpose eClinicalWorks Submission
--- OUTSIDE RECORDS SUMMARY | 2018-10-30 16:54 | XMS REPORT ---
Author Author JOSÉ LUIS RODRÍGUEZ Organization [facility] Address [address] [place] [address] Care Team Providers Care Health Evaluator Name Role Phone JOSÉ LUIS RODRÍGUEZ Unavailable PROBLEMS Type Condition ICD9-CM Code [id number] Code Onset Dates Condition Status SNOMED Code Problem Generalized osteoarthrosis, 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.04 Active 04794606 Problem Family history of diabetes mellitus V18.0 Active 080459769 Problem Umbilical hernia without mention of obstruction or gangrene 553.1 Active 656990375 Problem Chronic pain G89.29 Active 26656057 Problem Hypertriglyceridemia E78.1 Active 384159863 Problem Osteoarthritis M19.90 Active 630636247 Problem History of MRSA infection Z86.14 Active 554211087 Problem 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 Active 84765743 Problem Family history of diabetes mellitus Z83.3 Active 152106382 Assessment Hypertriglyceridemia E78.1 Jul, Active 888305855 Problem Family history of malignant neoplasm, prostate V16.42 Active 184491412 Problem Family history of malignant neoplasm of gastrointestinal tract V16.0 Active 302144593 Problem Essential hypertension, benign 401.1 Active 0563940 Problem Other chronic pain 338.29 Active 30131961 Problem Chronic airway obstruction, not elsewhere classified 496 Active 48743862 Problem Persistent disorder of initiating or maintaining sleep 307.42 Active 07499327 ALLERGIES Unknown Allergies SOCIAL HISTORY No smoking Hx information available PLAN OF CARE VITAL SIGNS MEDICATIONS Medication Instructions Dosage Frequency Start Date End Date Duration Status Zetia 10 mg Orally Once a day 1 tablet 24h Jul, 30 day(s) Active RESULTS No Results PROCEDURES No Known procedures IMMUNIZATIONS No Known Immunizations
--- OUTSIDE RECORDS SUMMARY | 2018-10-30 16:54 | XMS REPORT ---
Author Author JOSÉ LUIS RODRÍGUEZ [facility] Address [address] [place] [address] Care Team Providers Care Moisture Meter Reader Name Role Phone JOSÉ LUIS RODRÍGUEZ Unavailable PROBLEMS Type Condition ICD9-CM Code NXN79-MY Code Onset Dates Condition Status SNOMED Code Problem Chronic pain G89.29 Active 01230034 Problem Family history of diabetes mellitus Z83.3 Active 845890132 Problem Hypertriglyceridemia E78.1 Active 600894312 Problem History of MRSA infection Z86.14 Active 646712525 Problem Insomnia, unspecified type G47.00 Active 326522826 Problem Primary insomnia F51.01 Active 6648882 Problem Osteoarthritis M19.90 Active 687115588 Problem 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 Active 61680101 Problem Essential hypertension I10 Active 15225292 Problem Chronic obstructive pulmonary disease, unspecified COPD type J44.9 Active 12024600 ALLERGIES Unknown Allergies SOCIAL HISTORY No smoking Hx information available PLAN OF CARE VITAL SIGNS MEDICATIONS Medication Instructions Dosage Frequency Start Date End Date Duration Status Hydrocodone-Acetaminophen 10-325 MG Orally 4 times a day 1 tablet as needed for pain 6h Dec, 28 days Active RESULTS No Results PROCEDURES No Known procedures IMMUNIZATIONS No Known Immunizations
--- OUTSIDE RECORDS SUMMARY | 2018-10-30 16:55 | XMS REPORT ---
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 Name Role Phone JOSÉ LUIS RODRÍGUEZ Unavailable PROBLEMS Type Condition ICD9-CM Code [id number] Code Onset Dates Condition Status SNOMED Code Problem Chronic pain G89.29 Active 54242636 Problem Family history of diabetes mellitus Z83.3 Active 502450075 Problem Hypertriglyceridemia E78.1 Active 271465404 Problem History of MRSA infection Z86.14 Active 868511990 Problem Insomnia, unspecified type G47.00 Active 311866452 Problem Primary insomnia F51.01 Active 4326454 Problem Osteoarthritis M19.90 Active 604316426 Problem 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 Active 20120956 Problem Essential hypertension I10 Active 69704840 Problem Chronic obstructive pulmonary disease, unspecified COPD type J44.9 Active 68985410 ALLERGIES No Information ENCOUNTERS Encounter Location Date Diagnosis [place] [address] [address]- [address] Apr, [place] [address] 04787- 4046 March, Chronic pain G89.29 and Insomnia, unspecified type G47.00 [facility] [address] [place] [id number] [place] [address] 99309- 8424 March, Insomnia, unspecified type G47.00 [place] [address] [place] [id number] [place] [address] 75065- 1890 Feb, Chronic pain G89.29 [facility] [address] 65762- 5416 Feb, Chronic pain G89.29 [facility] [address] 48229- 4869 Jan, Chronic pain G89.29 [facility] [address] [place] [id number] [place] [address] 58090- 6995 Dec, Chronic pain G89.29 [facility] [address] [place] [id number] [place] [address] 70546- 0477 Nov, Chronic pain G89.29 and Insomnia, unspecified type G47.00 [facility] [address] [place] [id number] [place] [address] 35241- 8780 Oct, Insomnia, unspecified type G47.00 ; Chronic pain G89.29 and Colon cancer screening Z12.11 [facility] [address] [place] [id number] [place] [address] 70286- 4257 Oct, Chronic pain G89.29 [place] [address] [place] [id number] [place] [address] 45757- 2848 Sep, Chronic pain G89.29 and Insomnia, unspecified type G47.00 [facility] [address] [place] [id number] [place] [address] 97735- 6180 Sep, Chronic pain G89.29 [facility] [address] [place] [id number] [place] [address] 32368- 8045 Sep, [facility] [address] [place] [id number] [place] [address] 83861- 8823 Aug, Medicare welcome exam Z00.00 ; Encounter for immunization Z23 ; Colon cancer screening Z12.11 and Encounter for screening for lung cancer Z12.2 [facility] [id number] [place] [address] 85798- 1511 Aug, [facility] [address] [place] [id number] [place] [address] 52623- 6501 Aug, Chronic pain G89.29 and Insomnia, unspecified type G47.00 [facility] [address] [place] [id number] [place] [address] 75236- 6259 Aug, Hypertriglyceridemia E78.1 [place] [address] [place] [id number] [place] [address] 85618- 9165 Jul, Chronic pain G89.29 and Insomnia, unspecified type G47.00 [facility] [address] [place] [id number] [place] [address] 39101- 2159 Jun, Hypertriglyceridemia E78.1 [facility] [address] [place] [id number] [place] [address] 09316- 6376 Jun, Chronic pain G89.29 and Insomnia, unspecified type G47.00 [facility] [address] [place] [id number] [place] [address] 16916- 9370 Jun, [facility] [address] [place] [id number] [place] [address] 91796- 8090 Jun, [facility] [address] [place] [id number] [place] [address] 37417- 1054 May, 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 ; Chronic pain G89.29 ; Insomnia, unspecified type G47.00 and Rash R21 [facility] [address] [place] [id number] [place] [address] 40314- 3411 May, Chronic pain G89.29 [facility] [address] [place] [id number] [place] [address] 88673- 2212 May, Hypertriglyceridemia E78.1 [place] [address] [place] [id number] [place] [address] 46901- 9766 Apr, Chronic pain G89.29 [facility] [address] [place] [id number] [place] [address] 84611- 5595 Apr, Chronic pain G89.29 ; 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 ; Hypertriglyceridemia E78.1 and Primary insomnia F51.01 [facility] [address] [place] [id number] [place] [address] 66918- 9318 March, Chronic pain G89.29 [facility] [address] [place] [id number] [place] [address] 33811- 6566 March, Chronic pain G89.29 [facility] [address] [address] 6425 Feb, [facility] [address] [place] [address] 10977- 7806 Feb, Chronic pain G89.29 [facility] [address] [place] [address] 07990- 6269 Jan, Chronic pain G89.29 [facility] [address] [place] [id number] [place] [address] 12747- 6506 Dec, Chronic pain G89.29 [facility] [address] [place] [id number] [place] [address] 29756- 2116 Dec, [facility] [address] [place] [id number] [place] [address] 84692- 5248 Nov, Hypertriglyceridemia E78.1 [facility] [address] [place] [id number] [place] [address] 71289- 9234 Nov, [facility] [id number] [place] [address] 34823- 7186 Nov, Chronic pain G89.29 ; Hypertriglyceridemia E78.1 and Chronic obstructive pulmonary disease, unspecified COPD type J44.9 [facility] [address] [address]- 4224 Nov, Chronic pain G89.29 [facility] [address] [place] [address] 56533- 7202 Oct, Chronic pain G89.29 [facility] [address] [address]- 5757 Oct, [facility] [address] [place] [id number] [place] [address] 59493- 7957 Sep, Chronic obstructive pulmonary disease, unspecified COPD type J44.9 and Abscess L02.91 [facility] [address] [place] [address] 11203- 9822 16 Sep, 2016 Chronic pain G89.29 [facility] [address] [place] [id number] [place] [address] 53938- 0100 Aug, Chronic pain G89.29 [facility] [address] [place] [id number] [place] [address] 54828- 8869 Aug, Chronic pain G89.29 [facility] [address] [place] [id number] [place] [address] 69591- 7431 Aug, Cutaneous horn L85.8 and Skin tag L91.8 [facility] [address] [place] [id number] [place] [address] 56329- 0970 Jul, [facility] [address] 78404- 3902 Jul, Hypertriglyceridemia E78.1 [facility] [address] 21636- 6961 Jul, Other chronic pain G89.29 ; Essential hypertension I10 ; 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 ; Hyperlipidemia, unspecified hyperlipidemia type E78.5 and Cutaneous horn L85.8 [facility] [address] [place] [id number] [place] [address] 77005- 2527 Jun, Chronic pain G89.29 [facility] [address] [place] [id number] [place] [address] 31833- 8674 May, Chronic pain G89.29 [facility] [address] [place] [id number] [place] [address] 98473- 0232 May, [facility] [address] [place] [id number] [place] [address] 34435- 9521 05 May, 2016 Skin infection L08.9 [facility] [address] 02590- 8922 Apr, Chronic pain G89.29 [facility] [address] [place] [id number] [place] [address] 10638- 4763 14 Apr, 2016 [facility] [address] 97817- 8734 Apr, Chronic pain G89.29 [facility] [address] [place] [id number] [place] [address] 59678- 4936 March, [facility] [address] 73232- 3584 Feb, Chronic pain G89.29 ; 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 and Hypertriglyceridemia E78.1 [facility] [address] 66532- 9166 Feb, [facility] [address] [place] [id number] [place] [address] 21192- 4425 Jan, [facility] [address] 12015- 5668 Dec, [facility] [address] 66500- 7643 Nov, [facility] [address] 42213- 3942 Oct, [facility] [address] [place] [id number] [place] [address] 59440- 8772 Oct, 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 [facility] [address] [place] [id number] [place] [address] 58288- 1647 Oct, Other chronic pain G89.29 ; Chronic obstructive pulmonary disease, unspecified COPD type J44.9 ; Insomnia, unspecified type G47.00 ; 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 and Essential hypertension I10 [facility] [address] [place] [id number] [place] [address] 12912- 6759 Sep, [facility] [address] [place] [id number] [place] [address] 55145- 8575 Aug, [facility] [address] [place] [id number] [place] [address] 20536- 1112 30 Jul, 2015 [facility] [address] [place] [id number] [place] [address] 90886- 2028 14 Jul, 2015 [facility] [address] [place] [id number] [place] [address] 98121- 1539 14 Jul, 2015 Overweight 278.02 and Hyperinsulinemia 251.1 [facility] [address] 49416- 3646 Jul, [facility] [address] 15438- 0307 Jun, Skin tags, multiple acquired 701.9 [facility] [address] 64241- 0452 Jun, Other chronic pain 338.29 ; Erectile dysfunction 607.84 ; Hyperinsulinemia 251.1 and Hypertension 401.9 [place] [address] 40488- 6473 Jun, [facility] [address] 07786- 3903 Jun, [facility] [address] 10231- 7924 Jun, [facility] [address] 34022- 8551 May, Pure hyperglyceridemia 272.1 [place] [address] [place] [id number] [place] [address] 36357- 6726 May, Pure hyperglyceridemia 272.1 [place] [address] 12992- 3116 May, [facility] [address] 65351- 5154 May, Overgrown toenails 703.8 ; Seborrheic keratosis 702.19 ; Skin tag 701.9 ; Warts, genital 078.11 ; Cramps, extremity 729.82 ; Increased appetite 783.6 and Heat rash 705.1 [facility] [address] [place] [id number] [place] [address] 05889- 5790 May, [facility] [place] [facility] [address] [id number] [place] [address]- 2535 11 Apr, 2015 [facility] [place] [facility] [address] [id number] [place] [address]- 9048 08 Apr, 2015 [facility] [place] [facility] [address] [id number] [place] [address]- 9359 14 Mar, 2015 [facility] [place] [facility] [address] [id number] [place] [address]- 9147 14 Feb, 2015 [facility] [place] [facility] [address] [id number] [place] [address]- 7565 13 Feb, 2015 [facility] [place] [facility] [address] [id number] [place] [address]- 2630 27 Jan, 2015 [facility] [place] [facility] [address] [id number] [place] [address]- 3919 27 Jan, 2015 [facility] [place] [facility] [address] [id number] [place] [address]- 6593 27 Jan, 2015 [facility] [place] [facility] [address] [id number] [place] [address]- 7313 27 Jan, 2015 [facility] [place] [facility] [address] [id number] [place] [address]- 1578 19 Jan, 2015 [facility] [place] [facility] [address] [id number] [place] [address]- 9560 19 Jan, 2015 [facility] [place] [facility] [address] [id number] [place] [address]- 4853 16 Jan, 2015 [facility] [place] [facility] [address] [id number] [place] [address]- 4663 16 Jan, 2015 [facility] [place] [facility] [address] [id number] [place] [address]- 2048 10 Jan, 2015 [facility] [place] [facility] [address] [id number] [place] [address]- 6968 10 Jan, 2015 [facility] [place] [facility] [address] [id number] [place] [address]- 0650 Jan, [facility] [place] [facility] [address] [id number] [place] [address]- 9176 Jan, [facility] [place] [facility] [address] [id number] [place] [address]- 5350 Dec, 2014 [facility] [place] [facility] [address] [facility] [id number] [place] [address]- 9159 Dec, 2014 [facility] [place] [facility] [address] [id number] [place] [address]- 1353 Dec, 2014 [facility] [place] [facility] [address] [id number] [place] [address]- 6712 Dec, 2014 [facility] [place] [facility] [address] [facility] [id number] [place] [address]- 6496 Dec, 2014 [facility] [place] [facility] [address] [facility] [id number] [place] [address]- 1898 Dec, 2014 [facility] [place] [facility] [address] [facility] [id number] [place] [address]- 8930 Dec, [facility] [place] [facility] [address] [facility] [id number] [place] [address]- 6562 Dec, [facility] [place] [facility] [address] [facility] [id number] [place] [address]- 5393 Nov, [facility] [place] [facility] [address] [facility] [id number], [place] [address]- 0731 Nov, [facility] [place] [facility] [address] [facility] [id number], [place] [address]- 4862 Nov, [facility] [place] [facility] [address] [id number], [place] [address]- 5307 Nov, [facility] [place] [facility] [address] [facility] [id number], [place] [address]- 4231 Nov, [facility] [place] [facility] [address] [facility] [id number], [place] [address]- 5270 Nov, [facility] [place] [facility] [address] [id number] [place] [address]- 3722 Nov, [facility] [place] [facility] [address] [id number] [place] 2430 Nov, [facility] [place] [facility] [address] [id number] [place] [address]- 7920 Oct, [facility] [place] [facility] [address] [id number] [place] [address]- 4004 Oct, [facility] [place] [facility] [address] [id number] [place] 5913 Sep, [facility] [place] [facility] [address] [id number] [place] [address]- 9031 Sep, [facility] [place] [facility] [address] [id number] [place] [address]- 8648 Sep, [facility] [place] [facility] [address] [id number] [place] [address]- 5165 Sep, [facility] [place] [facility] [address] [id number] [place] [address]- 9810 Aug, [facility] [place] [facility] [address] [id number] [place] [address]- 7161 Aug, [facility] [place] [facility] [address] [id number] [place] [address]- 5783 Aug, [facility] [place] [facility] [address] [id number] [place] [address]- 5149 Aug, [facility] [place] [facility] [address] [id number] [place] [address]- 0080 Aug, [facility] [place] [facility] [address] [id number] [place] 2423 Aug, [facility] [place] [facility] [address] [id number] [place] [address]- 4422 Aug, [facility] [place] [facility] [address] [id number] [place] [address]- 4115 Aug, [facility] [place] [facility] [address] [id number] [place] [address]- 3235 Jul, [facility] [place] [facility] [address] [id number] [place] [address]- 5526 Jul, [facility] [place] [facility] [address] [id number] [place] 9646 Jul, [facility] [place] [facility] [address] [id number] [place] [address]- 3322 Jul, [facility] [place] [facility] [address] [id number] [place] [address]- 2913 Jul, [facility] [place] [facility] [address] [id number] [place] [address]- 9262 Jun, [facility] [place] [facility] [address] [id number] [place] [address]- 8084 Jun, [facility] [place] [facility] [address] [id number] [place] [address]- 2016 Jun, [facility] [place] [facility] [address] [id number] [place] [address]- 5396 Jun, [facility] [place] [facility] [address] [id number] [place] [address]- 1589 Jun, [facility] [place] [facility] [address] [id number], [place] [address]- 7987 Jun, [facility] [place] [facility] [address] [id number], [place] [address]- 1057 May, [facility] [place] [facility] [address] [id number] [place] [address]- 9094 May, [facility] [place] [facility] [address] [id number] [place] [address]- 3169 May, [facility] [place] [facility] [address] [id number] [place] [address]- 2941 May, [facility] [place] [facility] [address] [id number] [place] [address]- 2356 Apr, [facility] [place] [facility] [address] [id number] [place] [address]- 3127 Apr, [facility] [place] [facility] [address] [id number] [place] [address]- 4165 Apr, [facility] [place] [facility] [address] [id number] [place] [address]- 1663 Apr, [facility] [place] [facility] [address] [id number] [place] [address]- 5283 Apr, [facility] [place] [facility] [address] [id number] [place] [address]- 1834 Apr, [facility] [place] [facility] [address] [id number] [place] [address]- 2721 March, [facility] [place] [facility] [address] [id number] [place] [address]- 8700 March, [facility] [place] [facility] [address] [id number] [place] [address]- 5370 March, [facility] [place] [facility] [address] [id number] [place] [address]- 4067 March, [facility] [place] [facility] [address] [id number] [place] [address]- 1051 Feb, [facility] [place] [facility] [address] [id number] [place] [address]- 6216 Feb, [facility] [place] [facility] [address] [id number] [place] [address]- 9001 Feb, [facility] [place] [facility] [address] [id number] [place] [address]- 5390 Feb, [facility] [place] [facility] [address] [id number] [place] [address]- 6909 Feb, [facility] [place] [facility] [address] [id number] [place] [address]- 3164 Feb, [facility] [place] [facility] [address] [id number] [place] [address]- 0340 Feb, [facility] [place] [facility] [address] [id number] [place] [address]- 6462 Feb, [facility] [place] [facility] [address] [id number] [place] [address]- 6869 Feb, [facility] [place] [facility] [address] [id number] [place] [address]- 5218 Feb, [facility] [place] [facility] [address] [id number] [place] [address]- 6530 Feb, [facility] [place] [facility] [address] [id number] [place] [address]- 5848 Feb, [facility] [place] [facility] [address] [id number] [place] [address]- 3818 Feb, [facility] [place] [facility] [address] [id number] [place] [address]- 7212 Feb, [facility] [place] [facility] [address] [id number] [place] [address]- 4611 Feb, [facility] [place] [facility] [address] [id number] [place] [address]- 7368 Feb, [facility] [place] [facility] [address] [id number] [place] [address]- 4111 Jan, [facility] [place] [facility] [address] [id number] [place] [address]- 9588 Jan, [facility] [place] [facility] [address] [id number] [place] [address]- 4361 Dec, [facility] [place] [facility] [address] [id number] [place] [address]- 3708 Dec, [facility] [place] [facility] [address] [id number] [place] [address]- 8406 Dec, [facility] [place] [facility] [address] [id number], [place] [address]- 8749 Dec, [facility] [place] [facility] [address] [id number] [place] [address]- 0083 Dec, [facility] [place] [facility] [address] [id number] [place] [address]- 8660 Dec, [facility] [place] [facility] [address] [id number] [place] [address]- 4068 Dec, [facility] [place] [facility] [address] [id number] [place] [address] Nov, [facility] [place] [facility] [address] [id number] [place] [address] Nov, [facility] [place] [facility] [address] [id number] [place] [address] Nov, [facility] [place] [facility] [address] [facility] [id number] [place] [address] Nov, [facility] [place] [facility] [address] [id number] [place] [address] Oct, [facility] [place] [facility] [address] [id number] [place] [address] Oct, [facility] [place] [facility] [address] [facility] [id number] [place] [address] Sep, [facility] [place] [facility] [address] [id number] [place] [address] Sep, [facility] [place] [facility] [address] [id number], [place] [address] Aug, [facility] [place] [facility] [address] [id number] [place] [address] Aug, [facility] [place] [facility] [address] [id number] [place] [address] Aug, [facility] [place] [facility] [address] [id number] [place] [address] Aug, [facility] [place] [facility] [address] [id number] [place] [address] Aug, [facility] [place] [facility] [address] [id number] [place] [address] Aug, [facility] [place] [facility] [address] [id number] [place] [address] Aug, [facility] [place] [facility] [address] [id number] [place] [address] Aug, [facility] [address] [id number] [place] [address] Aug, [facility] [place] [facility] [address] [id number] [place] [address] Aug, [facility] [address] [id number] [place] [address] Jun, [facility] [place] [facility] [address] [id number] [place] [address] Jun, [facility] [place] [facility] [address] [id number] [place] [address] May, [facility] [place] [facility] [address] [id number] [place] [address] Apr, [facility] [place] [facility] [address] [id number] [place] [address] Apr, [facility] [place] [facility] [address] [id number] [place] [address] March, [facility] [place] [facility] [address] [id number] [place] [address] Feb, [facility] [place] [facility] [address] [id number] [place] [address] Jan, [facility] [place] [facility] [address] [id number] [place] [address] Jan, [facility] [place] [facility] [address] [id number] [place] [address] Dec, [facility] [address] [id number] [place] [address] Dec, [facility] [place] [facility] [address] [id number] [place] [address] Nov, [facility] [place] [facility] [address] [id number] [place] [address] Jul, [facility] [place] [facility] [address] [id number] [place] [address] Jul, [facility] [place] [facility] [address] [id number] [place] [address] Jun, [facility] [place] [facility] [address] [id number] [place] [address] May, [facility] [address] [id number] [place] [address] May, [facility] [place] [facility] [address] [id number] [place] [address] May, [facility] [place] [facility] [address] [id number] [place] [address] May, [facility] [place] [facility] [address] [id number] [place] [address] May, [facility] [place] [facility] [address] [id number] [place] [address] May, [facility] [place] [facility] [address] [id number] [place] [address] May, [facility] [place] [facility] [address] [id number] [place] [address] Apr, [facility] [place] [facility] [address] [id number] [place] [address] Apr, [facility] [place] [facility] [address] [id number] [place] [address] Apr, [facility] [place] [facility] [address] [facility] [id number] [place] [address] Apr, IMMUNIZATIONS No Known Immunizations SOCIAL HISTORY Never Assessed REASON FOR VISIT 11/12/17 PLAN OF CARE VITAL SIGNS MEDICATIONS Medication [...]
--- OUTSIDE RECORDS SUMMARY | 2018-10-30 16:55 | XMS REPORT ---
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 Gear Name Role Phone JOSÉ LUIS RODRÍGUEZ Unavailable PROBLEMS Type Condition ICD9-CM Code UGL74-BO Code Onset Dates Condition Status SNOMED Code Problem Chronic pain G89.29 Active 58498427 Problem Family history of diabetes mellitus Z83.3 Active 947523242 Problem Hypertriglyceridemia E78.1 Active 102785351 Problem History of MRSA infection Z86.14 Active 985796654 Problem Insomnia, unspecified type G47.00 Active 341969703 Problem Primary insomnia F51.01 Active 7565139 Problem Osteoarthritis M19.90 Active 590397826 Problem 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 Active 53261519 Problem Essential hypertension I10 Active 64858723 Problem Chronic obstructive pulmonary disease, unspecified COPD type J44.9 Active 87050710 ALLERGIES No Information ENCOUNTERS Encounter Location Date Diagnosis [place] [id number] [place] [address] 53934- 2675 Apr, [place] [id number] [place] [address] 10572- 4588 March, Insomnia, unspecified type G47.00 [facility] [id number] [place] [address] 69031- 9472 Feb, Chronic pain G89.29 [facility] [id number] [place] [address] 24945- 0007 Feb, Chronic pain G89.29 [facility] [id number] [place] [address] 80403- 5964 Jan, Chronic pain G89.29 [facility] [id number] [place] [address] 79741- 8621 Dec, Chronic pain G89.29 [facility] [address] [address] 5401 Nov, Chronic pain G89.29 and Insomnia, unspecified type G47.00 [facility] [id number] [place] [address] 69125- 4290 Oct, Insomnia, unspecified type G47.00 ; Chronic pain G89.29 and Colon cancer screening Z12.11 [place] [id number] [place] [address] 88891- 7807 Oct, Chronic pain G89.29 [place] [id number] [place] [address] 79942- 4803 Sep, Chronic pain G89.29 and Insomnia, unspecified type G47.00 [place] [id number] [place] [address] 76389- 0057 Sep, Chronic pain G89.29 [place] [id number] [place] [address] 00713- 7173 Sep, [place] [id number] [place] [address] 76190- 2769 Aug, Medicare welcome exam Z00.00 ; Encounter for immunization Z23 ; Colon cancer screening Z12.11 and Encounter for screening for lung cancer Z12.2 [place] [address] [address] 2861 Aug, [place] [id number] [place] [address] 53742- 9690 Aug, Chronic pain G89.29 and Insomnia, unspecified type G47.00 [place] [id number] [place] [address] 45481- 4739 Aug, Hypertriglyceridemia E78.1 [place] [id number] [address]- 4276 Jul, Chronic pain G89.29 and Insomnia, unspecified type G47.00 [place] [id number] [place] [address] 71326- 4549 Jun, Hypertriglyceridemia E78.1 [facility] [address] 64845- 0644 Jun, Chronic pain G89.29 and Insomnia, unspecified type G47.00 [facility] [id number] [place] [address] 65308- 9751 Jun, [facility] [address] 72539- 0678 Jun, [facility] [address] 55448- 0639 May, 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 ; Chronic pain G89.29 ; Insomnia, unspecified type G47.00 and Rash R21 [place] [address] 60928- 2905 May, Chronic pain G89.29 [facility] [id number] [place] [address] 41427- 8988 May, Hypertriglyceridemia E78.1 [place] [address] 36689- 8688 Apr, Chronic pain G89.29 [facility] [id number] [place] [address] 82261- 3370 Apr, Chronic pain G89.29 ; 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 ; Hypertriglyceridemia E78.1 and Primary insomnia F51.01 [facility] [id number] [place] [address] 74108- 8713 March, Chronic pain G89.29 [place] [address] 23703- 5699 March, Chronic pain G89.29 [facility] [id number] [place] [address] 32422- 1412 Feb, [facility] [address] 52875- 7064 Feb, Chronic pain G89.29 [facility] [address] [place] [address] 88661- 6087 Jan, Chronic pain G89.29 [facility] [address] [place] [address] 73199- 1976 07 Dec, 2016 Chronic pain G89.29 [facility] [id number] [place] [address] 80609- 1919 Dec, [facility] [address] [place] [address] 31187- 0560 Nov, Hypertriglyceridemia E78.1 [facility] [id number] [place] [address] 94408- 0608 Nov, [facility] [id number] [place] [address] 56000- 9681 Nov, Chronic pain G89.29 ; Hypertriglyceridemia E78.1 and Chronic obstructive pulmonary disease, unspecified COPD type J44.9 [facility] [address] [place] [address] 25291- 4567 Nov, Chronic pain G89.29 [facility] [address] [place] [address] 50137- 6825 Oct, Chronic pain G89.29 [facility] [address] [place] [address] 83467- 2719 Oct, [facility] [address] [place] [address] 58182- 5045 Sep, Chronic obstructive pulmonary disease, unspecified COPD type J44.9 and Abscess L02.91 [facility] [id number] [place] [address] 85013- 1389 16 Sep, 2016 Chronic pain G89.29 [facility] [address] [place] [address] 15796- 7672 Aug, Chronic pain G89.29 [facility] [id number] [place] [address] 36109- 6592 Aug, Chronic pain G89.29 [facility] [address] 50070- 8242 Aug, Cutaneous horn L85.8 and Skin tag L91.8 [facility] [address] 18516- 2929 Jul, [facility] [address] 85500- 1824 Jul, Hypertriglyceridemia E78.1 [place] [address] 29506- 2744 07 Jul, 2016 Other chronic pain G89.29 ; Essential hypertension I10 ; 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 ; Hyperlipidemia, unspecified hyperlipidemia type E78.5 and Cutaneous horn L85.8 [facility] [address] 89795- 4073 Jun, Chronic pain G89.29 [facility] [address] 77308- 6612 May, Chronic pain G89.29 [facility] [address] 78028- 9364 May, [facility] [id number] [place] [address] 23086- 3720 May, Skin infection L08.9 [facility] [address] 13873- 2032 Apr, Chronic pain G89.29 [facility] [address] 51760- 3078 Apr, [facility] [address] 35639- 2768 Apr, Chronic pain G89.29 [facility] [id number] [place] [address] 60438- 7172 March, [facility] [address] [place] [address] 39669- 9345 Feb, Chronic pain G89.29 ; 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 and Hypertriglyceridemia E78.1 [facility] [id number] [place] [address] 86805- 1600 Feb, [facility] [id number] [place] [address] 04109- 2941 Jan, [facility] [id number] [place] [address] 63512- 9951 Dec, [facility] [id number] [place] [address] 78262- 9767 Nov, [facility] [id number] [place] [address] 06967- 3199 Oct, [facility] [id number] [place] [address] 76820- 5032 Oct, 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 [facility] [id number] [place] [address] 87117- 0049 Oct, Other chronic pain G89.29 ; Chronic obstructive pulmonary disease, unspecified COPD type J44.9 ; Insomnia, unspecified type G47.00 ; 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 and Essential hypertension I10 [facility] [id number] [place] [address] 10501- 9393 Sep, [facility] [id number] [place] [address] 55562- 0065 Aug, [facility] [id number] [place] [address] 17993- 4421 30 Jul, 2015 [facility] [id number] [place] [address] 88425- 3993 14 Jul, 2015 [facility] [id number] [place] [address] 34747- 2723 14 Jul, 2015 Overweight 278.02 and Hyperinsulinemia 251.1 [facility] [id number] [place] [address] 65434- 9830 Jul, [facility] [id number] [place] [address] 82149- 4453 Jun, Skin tags, multiple acquired 701.9 [facility] [address] 93732- 0987 Jun, Other chronic pain 338.29 ; Erectile dysfunction 607.84 ; Hyperinsulinemia 251.1 and Hypertension 401.9 [facility] [address] 12479- 6960 Jun, [facility] [address] 18649- 5528 Jun, [facility] [address] 33094- 7468 Jun, [facility] [address] 20494- 2126 May, Pure hyperglyceridemia 272.1 [facility] [address] 04261- 9797 May, Pure hyperglyceridemia 272.1 [facility] [id number] [place] [address] 07396- 3943 May, [facility] [id number] [place] [address] 36595- 9214 May, Overgrown toenails 703.8 ; Seborrheic keratosis 702.19 ; Skin tag 701.9 ; Warts, genital 078.11 ; Cramps, extremity 729.82 ; Increased appetite 783.6 and Heat rash 705.1 [facility] [id number] [place] [address] 84323- 8917 May, [facility] [id number] [place] [address] 65581- 2722 Apr, [facility] [address] 15569- 5626 08 Apr, 2015 [facility] [place] [facility] [address] [id number] [place] [address]- 3630 March, [facility] [place] [facility] [address] [id number] [place] [address]- 3686 14 Feb, 2015 [facility] [place] [facility] [address] [id number] [place] [address]- 5726 Feb, [facility] [place] [facility] [address] [id number] [place] [address]- 3358 27 Jan, 2015 [facility] [place] [facility] [address] [id number] [place] [address]- 2471 27 Jan, 2015 [facility] [place] [facility] [address] [id number] [place] [address]- 7324 27 Jan, 2015 [facility] [place] [facility] [address] [id number] [place] [address]- 5952 Jan, [facility] [place] [facility] [address] [id number] [place] [address]- 4832 Jan, [facility] [place] [facility] [address] [id number] [place] [address]- 5027 19 Jan, 2015 [facility] [place] [facility] [address] [id number] [place] [address]- 3247 16 Jan, 2015 [facility] [place] [facility] [address] [id number] [place] [address]- 3402 16 Jan, 2015 [facility] [place] [facility] [address] [id number] [place] [address]- 8740 10 Jan, 2015 [facility] [place] [facility] [address] [id number] [place] [address]- 9749 10 Jan, 2015 [facility] [place] [facility] [address] [id number] [place] 9677 05 Jan, 2015 [facility] [place] [facility] [address] [id number] [place] [address]- 6663 05 Jan, 2015 [facility] [place] [facility] [address] [id number] [place] [address]- 7949 Dec, 2014 [facility] [place] [facility] [address] [id number] [place] [address]- 5961 Dec, 2014 [facility] [place] [facility] [address] [id number] [place] 0856 Dec, 2014 [facility] [place] [facility] [address] [id number] [place] [address]- 0027 Dec, 2014 [facility] [place] [facility] [address] [id number] [place] [address]- 6867 Dec, 2014 [facility] [place] [facility] [address] [id number] [place] [address]- 9261 Dec, 2014 [facility] [place] [facility] [address] [facility] [id number] [place] [address]- 1725 Dec, 2014 [facility] [place] [facility] [address] [id number] [place] [address]- 6726 Dec, 2014 [facility] [place] [facility] [address] [id number] [place] [address]- 4445 Nov, [facility] [place] [facility] [address] [id number] [place] [address]- 5923 Nov, [facility] [place] [facility] [address] [facility] [id number] [place] [address]- 0500 Nov, [facility] [place] [facility] [address] [id number] [address]- 9604 Nov, [facility] [place] [facility] [address] [id number] [place] [address]- 6783 Nov, [facility] [place] [facility] [address] [id number] [place] [address]- 8765 Nov, [facility] [place] [facility] [address] [id number] [place] [address]- 9011 Nov, [facility] [place] [facility] [address] [id number] [address]- 1218 Nov, [facility] [place] [facility] [address] [id number] [place] 4857 Oct, [facility] [place] [facility] [address] [id number] [place] [address]- 1194 Oct, [facility] [place] [facility] [address] [id number] [place] [address]- 5401 Sep, [facility] [place] [facility] [address] [id number] [place] [address]- 2800 Sep, [facility] [place] [facility] [address] [id number] [place] 1116 Sep, [facility] [place] [facility] [address] [id number] [place] [address]- 1197 Sep, [facility] [place] [facility] [address] [id number] [place] [address]- 0527 Aug, [facility] [place] [facility] [address] [id number] [place] [address]- 3122 Aug, [facility] [place] [facility] [address] [id number], [place] [address]- 3435 Aug, [facility] [place] [facility] [address] [id number], [place] [address]- 3664 Aug, [facility] [place] [facility] [address] [id number], [place] [address]- 5990 Aug, [facility] [place] [facility] [address] [id number], [place] [address]- 4067 Aug, [facility] [place] [facility] [address] [id number] 1054 Aug, [facility] [place] [facility] [address] [id number] 2778 Aug, [facility] [place] [facility] [address] [id number] [place] 6288 Jul, [facility] [place] [facility] [address] [id number] [place] [address]- 7856 Jul, [facility] [place] [facility] [address] [id number] [place] [address]- 8340 Jul, [facility] [place] [facility] [address] [id number] [place] [address]- 0245 Jul, [facility] [place] [facility] [address] [id number] [place] [address]- 9015 Jul, [facility] [place] [facility] [address] [id number] [place] [address]- 6379 Jun, [facility] [place] [facility] [address] [id number] [place] [address]- 6439 Jun, [facility] [place] [facility] [address] [id number] [place] [address]- 2954 Jun, [facility] [place] [facility] [address] [id number] [place] [address]- 1184 Jun, [facility] [place] [facility] [address] [id number] [place] [address]- 6394 Jun, [facility] [place] [facility] [address] [id number] [place] [address]- 8932 Jun, [facility] [place] [facility] [address] [id number] [place] [address]- 6528 May, [facility] [place] [facility] [address] [id number] [place] [address]- 2272 May, [facility] [place] [facility] [address] [id number] [place] [address]- 3974 May, [facility] [place] [facility] [address] [id number] [place] [address]- 0793 May, [facility] [place] [facility] [address] [id number] [place] [address]- 4879 Apr, [facility] [place] [facility] [address] [id number] [place] [address]- 2366 Apr, [facility] [place] [facility] [address] [id number] [place] [address]- 5406 Apr, [facility] [place] [facility] [address] [id number] [place] [address]- 9327 Apr, [facility] [place] [facility] [address] [id number] [place] [address]- 4826 Apr, [facility] [place] [facility] [address] [id number] [place] [address]- 0124 Apr, [facility] [place] [facility] [address] [id number] [place] [address]- 1061 March, [facility] [place] [facility] [address] [id number] [place] [address]- 1366 March, [facility] [place] [facility] [address] [id number] [place] [address]- 5361 March, [facility] [place] [facility] [address] [id number] [place] [address]- 8318 March, [facility] [place] [facility] [address] [id number] [place] [address]- 4334 Feb, [facility] [place] [facility] [address] [id number] [place] [address]- 8436 Feb, [facility] [place] [facility] [address] [id number] [place] [address]- 0211 Feb, [facility] [place] [facility] [address] [id number] [place] [address]- 2992 Feb, [facility] [place] [facility] [address] [id number] [place] [address]- 1767 Feb, [facility] [place] [facility] [address] [id number] [place] [address]- 1798 Feb, [facility] [place] [facility] [address] [id number] [place] [address]- 0841 Feb, [facility] [place] [facility] [address] [id number] [place] [address]- 9331 Feb, [facility] [place] [facility] [address] [id number] [place] [address]- 7284 Feb, [facility] [place] [facility] [address] [id number] [place] [address]- 3236 Feb, [facility] [place] [facility] [address] [id number] [place] [address]- 0157 Feb, [facility] [place] [facility] [address] [id number] [place] [address]- 1518 Feb, [facility] [place] [facility] [address] [id number] [place] [address]- 7349 Feb, [facility] [place] [facility] [address] [id number] [place] [address]- 9295 Feb, [facility] [place] [facility] [address] [id number] [place] [address]- 5219 Feb, [facility] [place] [facility] [address] [id number] [place] [address]- 6092 Feb, [facility] [place] [facility] [address] [id number] [place] [address]- 4210 Jan, [facility] [place] [facility] [address] [id number] [place] [address]- 6092 Jan, [facility] [place] [facility] [address] [id number] [place] [address]- 0530 Dec, [facility] [place] [facility] [address] [id number] [place] [address]- 9910 Dec, [facility] [place] [facility] [address] [id number] [place] [address]- 4857 Dec, [facility] [place] [facility] [address] [id number] [place] [address]- 3260 Dec, [facility] [place] [facility] [address] [id number] [place] [address]- 1176 Dec, [facility] [place] [facility] [address] [id number] [place] [address]- 3777 Dec, [facility] [place] [facility] [address] [id number] [place] 6088 Dec, [facility] [place] [facility] [address] [id number] [place] [address]- 7526 Nov, [facility] [place] [facility] [address] [id number] [place] [address]- 0449 Nov, [facility] [place] [facility] [address] [id number] [place] [address]- 5077 Nov, [facility] [place] [facility] [address] [id number] [place] [address] Nov, [facility] [place] [facility] [address] [id number] [place] [address] Oct, [facility] [place] [facility] [address] [id number] [address] Oct, [facility] [place] [facility] [address] [id number] [place] [address] Sep, [facility] [place] [facility] [address] [id number][place] [address] Sep, [facility] [place] [facility] [address] [id number][place] [address] Aug, [facility] [place] [facility] [address] [id number], [place] [address] Aug, [facility] [place] [facility] [address] [id number] [place] [address] Aug, [facility] [place] [facility] [address] [id number], [place] [address] Aug, [facility] [place] [facility] [address] [id number][place] [address] Aug, [facility] [place] [facility] [address] [id number][place] [address] Aug, [facility] [address] [id number] [place] [address] Aug, [facility] [place] [facility] [address] [id number], [place] [address] Aug, [facility] [address] [facility] [id number] [place] [address] Aug, [facility] [place] [facility] [address] [id number] [place] [address] Aug, [facility] [address] [facility] [id number] [place] [address] Jun, [facility] [address] [facility] [id number] [place] [address] Jun, [facility] [address] [id number], [place] [address] May, [facility] [place] [facility] [address] [facility] [id number], [place] [address] Apr, [facility] [address] [id number], [place] [address] Apr, [facility] [address] [id number], [place] [address] March, [facility] [address] [id number], [place] [address] Feb, [facility] [place] [facility] [address] [facility] [id number], [place] [address] Jan, [facility] [place] [facility] [address] [id number][place] [address] Jan, [facility] [place] [facility] [address] [facility] [id number], [place] [address] Dec, [facility] [place] [facility] [address] [facility] [id number][place] [address] Dec, [facility] [place] [facility] [address] [id number] [place] [address] Nov, [facility] [address] [id number] [place] [address] Jul, [facility] [address] [facility] [id number] [place] [address] Jul, [facility] [address] [facility] [id number] [place] [address] Jun, [facility] [address] [id number] [place] [address] May, [facility] [address] [id number] [place] [address] May, [facility] [address] [facility] [id number] [place] [address] May, [facility] [address] [facility] [id number] [place] [address] May, [facility] [address] [facility] [id number] [place] [address] May, [facility] [address] [facility] [id number], [place] [address] May, [facility] [address] [facility] [id number] [place] [address] May, [facility] [address] [facility] [id number] [address] Apr, [facility] [address] [facility] [place] [id number] [address] Apr, [facility] [address] [facility] [place] [id number] [id number] Apr, [facility] [address] [facility] [place] [id number] [address] Apr, IMMUNIZATIONS No Known Immunizations SOCIAL HISTORY Never Assessed REASON FOR VISIT Lab (walk-in)--[facility] PLAN OF CARE VITAL SIGNS MEDICATIONS Unknown Medications RESULTS Name Result Date Reference Range LIPID PANEL 2017-09-10 Cholesterol, Total 150 100-199 Triglycerides 329 0-149 HDL Cholesterol 36 >39 VLDL Cholesterol Lisandro 66 5-40 LDL Cholesterol Calc 48 0-99 Comment: CMP 2017-09-10 Glucose, Serum 108 65-99 BUN 15 8-27 Creatinine, Serum 0.87 0.76-1.27 eGFR If NonAfricn Am 91 >59 eGFR If Africn Am 105 >59 BUN/Creatinine Ratio 17 10-24 Sodium, Serum 140 134-144 Potassium, Serum 4.6 3.5-5.2 Chloride, Serum 99 96-106 Carbon Dioxide, Total 25 18-29 Calcium, Serum 8.9 8.6-10.2 Protein, Total, Serum 6.8 6.0-8.5 Albumin, Serum 3.8 3.6-4.8 Globulin, Total 3.0 1.5-4.5 A/G Ratio 1.3 1.2-2.2 Bilirubin, Total 1.1 0.0-1.2 Alkaline Phosphatase, S 52 39-117 AST (SGOT) 29 0-40 ALT (SGPT) 42 0-44 PROCEDURES Procedure Date Ordered Result Body Site LIPID PANEL Sep 10, 2017 COMPREHEN METABOLIC PANEL Sep 10, 2017 VENIPUNCT, ROUTINE* Sep 10, 2017 INSTRUCTIONS MEDICATIONS ADMINISTERED No Known Medications MEDICAL (GENERAL) HISTORY Type Description Date Medical History hypogonadism Medical History hyperlipidemia Medical History pre-diabetic Medical History chronic pain Medical History COPD Surgical History skin cancer 1999 Hospitalization History surgery Hospitalization History MRSA infection 05/2015
--- OUTSIDE RECORDS SUMMARY | 2018-10-30 16:55 | XMS REPORT ---
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 [address]-03 10-325 MG Orally 4 times a day February 15, 2015 1 tablet as needed for pain Results No Known Results Summary Purpose eClinicalWorks Submission
--- OUTSIDE RECORDS SUMMARY | 2018-10-30 16:56 | XMS REPORT ---
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
--- OUTSIDE RECORDS SUMMARY | 2018-10-30 16:56 | XMS REPORT ---
Author Author JOSÉ LUIS RODRÍGUEZ [facility] Address [address] [place] [address] Care Team Providers Care Gas Adjuster Name Role Phone JOSÉ LUIS RODRÍGUEZ Unavailable PROBLEMS Type Condition ICD9-CM Code [id number] Code Onset Dates Condition Status SNOMED Code Problem Chronic pain G89.29 Active 24334542 Problem Family history of diabetes mellitus Z83.3 Active 307584445 Problem Hypertriglyceridemia E78.1 Active 536356050 Problem History of MRSA infection Z86.14 Active 444551042 Problem Insomnia, unspecified type G47.00 Active 053084416 Problem Primary insomnia F51.01 Active 6390722 Problem Osteoarthritis M19.90 Active 188268406 Problem 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 Active 89471636 Problem Essential hypertension I10 Active 26959825 Problem Chronic obstructive pulmonary disease, unspecified COPD type J44.9 Active 99906480 ALLERGIES No Information ENCOUNTERS Encounter Location Date Diagnosis [place] [address] [address]- [address] Jan, Chronic pain G89.29 [place] [address] [place] [id number] [place] [address] 95723- 8903 Dec, Chronic pain G89.29 [place] [address] [place] [id number] [place] [address] 46037- 5349 Nov, Chronic pain G89.29 and Insomnia, unspecified type G47.00 [place] [address] 50692- 1384 Oct, Insomnia, unspecified type G47.00 ; Chronic pain G89.29 and Colon cancer screening Z12.11 [place] [address] [place] [id number] [place] [address] 84536- 8059 Oct, Chronic pain G89.29 [facility] [address] [address] Sep, Chronic pain G89.29 and Insomnia, unspecified type G47.00 [facility] [address] [place] [id number] [place] [address] 64666- 5899 Sep, Chronic pain G89.29 [place] [address] [place] [id number] [place] [address] 43848- 8736 Sep, [facility] [address] [place] [id number] [place] [address] 00867- 9345 Aug, Medicare welcome exam Z00.00 ; Encounter for immunization Z23 ; Colon cancer screening Z12.11 and Encounter for screening for lung cancer Z12.2 [place] [address] [place] [id number] [place] [address] 63973- 5809 Aug, [place] [address] [place] [id number] [place] [address] 14667- 2879 Aug, Chronic pain G89.29 and Insomnia, unspecified type G47.00 [place] [address] [place] [id number] [place] [address] 71794- 2369 Aug, Hypertriglyceridemia E78.1 [place] [address] [place] [id number] [place] [address] 60802- 3649 Jul, Chronic pain G89.29 and Insomnia, unspecified type G47.00 [place] [address] [address]- 9105 Jun, Hypertriglyceridemia E78.1 [facility] [address] [place] [address] 24215- 6851 Jun, Chronic pain G89.29 and Insomnia, unspecified type G47.00 [facility] [address] [address]- 4094 Jun, [place] [id number] [place] [address] 91512- 9230 Jun, [place] [address] [place] [id number] [place] [address] 69448- 2398 May, 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 ; Chronic pain G89.29 ; Insomnia, unspecified type G47.00 and Rash R21 [facility] [address] [place] [id number] [place] [address] 55935- 5877 May, Chronic pain G89.29 [facility] [address] 15982- 4028 May, Hypertriglyceridemia E78.1 [facility] [address] 27754- 6021 Apr, Chronic pain G89.29 [facility] [address] 84686- 1615 Apr, Chronic pain G89.29 ; Hyperinsulinemia E16.1 ; Hypertriglyceridemia E78.1 and Primary insomnia F51.01 [facility] [address] 81656- 2922 March, Chronic pain G89.29 [facility] [address] 86481- 6998 March, Chronic pain G89.29 [facility] [address] [place] [id number] [place] [address] 26485- 9935 Feb, [facility] [address] [place] [id number] [place] [address] 40157- 9876 Feb, Chronic pain G89.29 [facility] [address] [place] [id number] [place] [address] 98656- 6535 Jan, Chronic pain G89.29 [facility] [address] 21686- 0592 Dec, Chronic pain G89.29 [facility] [address] [place] [id number] [place] [address] 94028- 8678 Dec, [facility] [address] 72947- 8977 Nov, Hypertriglyceridemia E78.1 [facility] [address] 77291- 3393 Nov, [facility] [address] 15974- 7270 Nov, Chronic pain G89.29 ; Hypertriglyceridemia E78.1 and Chronic obstructive pulmonary disease, unspecified COPD type J44.9 [facility] [address] 72570- 5078 Nov, Chronic pain G89.29 [facility] [address] 94932- 4179 Oct, Chronic pain G89.29 [facility] [address] 76988- 6700 Oct, [facility] [address] 91214- 0156 Sep, Chronic obstructive pulmonary disease, unspecified COPD type J44.9 and Abscess L02.91 [place] [address] 58747- 2834 Sep, Chronic pain G89.29 [facility] [address] 46874- 8297 Aug, Chronic pain G89.29 [facility] [address] 45699- 2229 Aug, Chronic pain G89.29 [facility] [address] [place] [id number] [place] [address] 62973- 7531 Aug, Cutaneous horn L85.8 and Skin tag L91.8 [facility] [address] [place] [id number] [place] [address] 37641- 8196 Jul, [facility] [address] [place] [id number] [place] [address] 38260- 4955 Jul, Hypertriglyceridemia E78.1 [facility] [address] [place] [id number] [place] [address] 14316- 5131 07 Jul, 2016 Other chronic pain G89.29 ; Essential hypertension I10 ; Hyperinsulinemia E16.1 ; Hyperlipidemia, unspecified hyperlipidemia type E78.5 and Cutaneous horn L85.8 [facility] [address] [place] [id number] [place] [address] 72352- 3319 Jun, Chronic pain G89.29 [facility] [address] 70822- 4476 May, Chronic pain G89.29 [facility] [address] 98235- 3426 May, [facility] [address] 96760- 4760 May, Skin infection L08.9 [facility] [address] 54163- 6255 Apr, Chronic pain G89.29 [facility] [address] 63891- 4348 Apr, [facility] [address] 22587- 5057 Apr, Chronic pain G89.29 [facility] [address] [place] [id number] [place] [address] 06151- 4078 March, [facility] [address] [place] [id number] [place] [address] 07008 2544 Feb, Chronic pain G89.29 ; Hyperinsulinemia E16.1 and Hypertriglyceridemia E78.1 [facility] [address] 22368- 0078 Feb, [facility] [address] [place] [id number] [place] [address] 63204- 7276 Jan, [facility] [address] [place] [id number] [place] [address] 85828- 0349 Dec, [facility] [address] [place] [id number] [place] [address] 58992- 8968 Nov, [facility] [address] 76788- 2758 Oct, [facility] [address] [place] [id number] [place] [address] 86310- 5830 Oct, Hyperinsulinemia E16.1 [facility] [address] 50598- 8402 Oct, Other chronic pain G89.29 ; Chronic obstructive pulmonary disease, unspecified COPD type J44.9 ; Insomnia, unspecified type G47.00 ; Hyperinsulinemia E16.1 and Essential hypertension I10 [facility] [address] [place] [id number] [place] [address] 80593- 7488 Sep, [facility] [address] 93466- 8872 Aug, [facility] [address] 39828- 0507 30 Jul, 2015 [facility] [address] 11413- 3771 Jul, [facility] [address] [place] [id number] [place] [address] 00066- 3277 Jul, Overweight 278.02 and Hyperinsulinemia 251.1 [facility] [address] [place] [id number] [place] [address] 21227- 2547 Jul, [facility] [address] [place] [id number] [place] [address] 54489- 9600 18 Jun, 2015 Skin tags, multiple acquired 701.9 [place] [address] 22441- 9207 13 Jun, 2015 Other chronic pain 338.29 ; Erectile dysfunction 607.84 ; Hyperinsulinemia 251.1 and Hypertension 401.9 [facility] [address] [place] [address] 48671- 2540 Jun, [facility] [address] [address]- 8134 Jun, [facility] [address] [place] [id number] [place] [address] 93781- 4888 Jun, [facility] [address] [place] [id number] [address]- 4329 May, Pure hyperglyceridemia 272.1 [facility] [address] [place] [id number] [place] [address] 36837- 9296 May, Pure hyperglyceridemia 272.1 [facility] [address] [place] [id number] [place] [address] 25534- 8452 May, [facility] [address] [place] [id number] [place] [address] 81887- 4618 May, Overgrown toenails 703.8 ; Seborrheic keratosis 702.19 ; Skin tag 701.9 ; Warts, genital 078.11 ; Cramps, extremity 729.82 ; Increased appetite 783.6 and Heat rash 705.1 [facility] [address] [address]- 1210 May, [facility] [address] [place] [id number] [place] [address] 09131- 2599 Apr, [facility] [address] [address]- 7057 Apr, [facility] [address] [address]- 0907 March, [facility] [address] [address]- 7034 Feb, [facility] [address] [address]- 7064 Feb, [facility] [address] [address]- 5981 Jan, [facility] [id number] [place] [address]- 3539 27 Jan, 2014 [facility] [place] [facility] [address] [id number] [place] [address]- 2545 27 Jan, 2014 [facility] [place] [facility] [address] [id number] [place] [address]- 9704 27 Jan, 2014 [facility] [place] [facility] [address] [id number] [place] [address]- 1624 19 Jan, 2014 [facility] [place] [facility] [address] [id number] [place] [address]- 7638 19 Jan, 2014 [facility] [place] [facility] [address] [id number] [place] [address]- 2168 16 Jan, 2014 [facility] [place] [facility] [address] [id number] [place] [address]- 8593 16 Jan, 2014 [facility] [place] [facility] [address] [id number] [place] [address]- 1298 10 Jan, 2014 [facility] [place] [facility] [address] [id number] [place] [address]- 6842 10 Jan, 2015 [facility] [place] [facility] [address] [id number] [place] [address]- 4946 05 Jan, 2014 [facility] [place] [facility] [address] [id number] [place] [address]- 4301 05 Jan, 2015 [facility] [place] [facility] [address] [id number] [place] [address]- 8116 Dec, 2014 [facility] [place] [facility] [address] [id number] [place] [address]- 7586 Dec, 2014 [facility] [place] [facility] [address] [id number] [place] [address]- 3276 Dec, 2014 [facility] [place] [facility] [address] [id number] [place] [address]- 2546 Dec, 2014 [facility] [place] [facility] [address] [id number] [place] [address]- 8172 Dec, [facility] [place] [facility] [address] [id number] [place] [address]- 6646 Dec, [facility] [place] [facility] [address] [id number] [place] [address]- 9142 Dec, [facility] [place] [facility] [address] [id number] [place] [address]- 2909 Dec, [facility] [place] [facility] [address] [id number] [place] [address]- 1031 Nov, [facility] [place] [facility] [address] [id number] [place] [address]- 7334 Nov, [facility] [place] [facility] [address] [id number] [place] [address]- 1610 Nov, [facility] [place] [facility] [address] [id number] [place] [address]- 8952 Nov, [facility] [place] [facility] [address] [id number] [place] [address]- 9771 Nov, [facility] [place] [facility] [address] [id number] [place] [address]- 7097 Nov, [facility] [place] [facility] [address] [id number] [place] [address]- 1593 Nov, [facility] [place] [facility] [address] [id number] [address]- 8605 Nov, [facility] [place] [facility] [address] [id number] [address]- 6831 Oct, [facility] [place] [facility] [address] [id number] [place] [address]- 9541 Oct, [facility] [place] [facility] [address] [id number] [place] [address]- 2708 Sep, [facility] [place] [facility] [address] [id number] [place] [address]- 9434 Sep, [facility] [place] [facility] [address] [id number] [place] [address]- 5081 Sep, [facility] [place] [facility] [address] [id number] [place] [address]- 4394 Sep, [facility] [place] [facility] [address] [id number] [place] 0036 Aug, [facility] [place] [facility] [address] [id number] [place] [address]- 5525 Aug, [facility] [place] [facility] [address] [id number] [place] [address]- 9245 Aug, [facility] [place] [facility] [address] [id number] [place] [address]- 8176 Aug, [facility] [place] [facility] [address] [id number] [place] [address]- 5333 Aug, [facility] [place] [facility] [address] [id number] [place] [address]- 7972 Aug, [facility] [place] [facility] [address] [id number] [place] [address]- 9205 Aug, [facility] [place] [facility] [address] [id number] [place] [address]- 2033 Aug, [facility] [place] [facility] [address] [id number] [place] [address]- 5890 Jul, [facility] [place] [facility] [address] [id number] [place] [address]- 7120 Jul, [facility] [place] [facility] [address] [id number] [place] [address]- 3510 Jul, [facility] [place] [facility] [address] [id number] [place] [address]- 5677 Jul, [facility] [place] [facility] [address] [id number] [place] [address]- 8084 Jul, [facility] [place] [facility] [address] [id number] [place] 0099 Jun, [facility] [place] [facility] [address] [id number] [place] [address]- 2281 Jun, [facility] [place] [facility] [address] [id number] [place] [address]- 1487 Jun, [facility] [place] [facility] [address] [id number] [place] [address]- 0000 Jun, [facility] [place] [facility] [address] [id number] [place] [address]- 0998 Jun, [facility] [place] [facility] [address] [id number] [place] [address]- 6429 Jun, [facility] [place] [facility] [address] [id number] [place] [address]- 9484 May, [facility] [place] [facility] [address] [id number] [place] [address]- 4260 May, [facility] [place] [facility] [address] [id number] [place] [address]- 3934 May, [facility] [place] [facility] [address] [id number] [place] [address]- 6264 May, [facility] [place] [facility] [address] [id number] [place] [address]- 2322 Apr, [facility] [place] [facility] [address] [id number] [place] [address]- 4255 Apr, [facility] [place] [facility] [address] [id number] [place] [address]- 2380 Apr, [facility] [place] [facility] [address] [id number] [place] [address]- 8343 Apr, [facility] [place] [facility] [address] [id number] [place] [address]- 9644 Apr, [facility] [place] [facility] [address] [id number] [place] [address]- 2561 Apr, [facility] [place] [facility] [address] [id number] [address]- 4106 March, [facility] [address] [id number] [place] [address]- 1174 March, [facility] [place] [facility] [address] [id number] [place] [address]- 3589 March, [facility] [place] [facility] [address] [id number] [place] [address]- 8691 March, [facility] [place] [facility] [address] [id number] [place] [address]- 9666 Feb, [facility] [place] [facility] [address] [id number] [place] [address]- 1749 Feb, [facility] [place] [facility] [address] [id number] [place] [address]- 0856 Feb, [facility] [place] [facility] [address] [id number] [place] [address]- 8710 Feb, [facility] [place] [facility] [address] [id number] [place] [address]- 7606 Feb, [facility] [place] [facility] [address] [id number] [place] [address]- 4107 Feb, [facility] [place] [facility] [address] [id number] [place] [address]- 0451 Feb, [facility] [place] [facility] [address] [id number] [place] [address]- 7221 Feb, [facility] [place] [facility] [address] [id number] [place] [address]- 7698 Feb, [facility] [place] [facility] [address] [id number] [place] [address]- 9091 Feb, [facility] [place] [facility] [address] [id number] [place] [address]- 6938 Feb, [facility] [place] [facility] [address] [id number] [place] [address]- 0516 Feb, [facility] [place] [facility] [address] [id number] [place] [address]- 7993 Feb, [facility] [place] [facility] [address] [id number] [place] [address]- 3928 Feb, [facility] [place] [facility] [address] [id number] [place] [address]- 9736 Feb, [facility] [place] [facility] [address] [id number] [place] [address] Feb, [facility] [place] [facility] [address] [id number] [place] [address] Jan, [facility] [place] [facility] [address] [id number] [place] [address] Jan, [facility] [place] [facility] [address] [facility] [id number] [place] [address] Dec, [facility] [place] [facility] [address] [id number] [place] [address] Dec, [facility] [place] [facility] [address] [id number] [place] [address] Dec, [facility] [place] [facility] [address] [facility] [id number] [place] [address] Dec, [facility] [place] [facility] [address] [facility] [id number] [place] [address] Dec, [facility] [place] [facility] [address] [id number] [address] Dec, [facility] [place] [facility] [address] [id number] [place] [address] Dec, [facility] [place] [facility] [address] [id number] [place] [address] Nov, [facility] [place] [facility] [address] [id number] [place] [address] Nov, [facility] [place] [facility] [address] [id number] [address] Nov, [facility] [place] [facility] [address] [id number] [place] [address] Nov, [facility] [place] [facility] [address] [id number] [address] Oct, [facility] [place] [facility] [address] [id number] [place] [address] Oct, [facility] [place] [facility] [address] [id number] [place] [address] Sep, [facility] [place] [facility] [address] [id number] [place] [address] Sep, [facility] [place] [facility] [address] [id number] [place] [address] Aug, [facility] [place] [facility] [address] [id number] [place] [address] Aug, [facility] [place] [facility] [address] [id number] [place] [address] Aug, [facility] [place] [facility] [address] [id number] [place] [address] Aug, [facility] [place] [facility] [address] [id number] [place] [address] Aug, [facility] [place] [facility] [address] [id number] [address] Aug, [facility] [place] [facility] [address] [id number] [place] [address] Aug, [facility] [place] [facility] [address] [id number] [place] [address] Aug, [facility] [place] [facility] [address] [id number] [address] Aug, [facility] [place] [facility] [address] [id number] [address] Aug, [facility] [place] [facility] [address] [id number] [place] [address] Jun, [facility] [address] [id number] [place] [address] Jun, [facility] [place] [facility] [address] [id number] [place] [address] May, [facility] [place] [facility] [address] [id number] [place] [address] Apr, [facility] [place] [facility] [address] [id number] [place] [address] Apr, [facility] [place] [facility] [address] [id number] [place] [address] March, [facility] [place] [facility] [address] [id number] [place] [address] Feb, [facility] [place] [facility] [address] [id number] [place] [address] Jan, [facility] [place] [facility] [address] [id number] [place] [address] Jan, [facility] [place] [facility] [address] [id number] [place] [address] Dec, [facility] [place] [facility] [address] [id number] [place] [address] Dec, [facility] [place] [facility] [address] [id number] [place] [address] Nov, [facility] [place] [facility] [address] [id number] [place] [address] Jul, [facility] [place] [facility] [address] [id number] [place] [address] Jul, [facility] [place] [facility] [address] [id number] [place] [address] Jun, [facility] [place] [facility] [address] [id number] [place] [address] May, [facility] [address] [facility] [id number] [place] [address] May, [facility] [address] [facility] [id number] [place] [address] May, [facility] [address] [facility] [id number] [place] [address] May, [facility] [facility] [address] [facility] [id number] [address] May, [facility] [address] [facility] [id number] [place] [address] May, [facility] [address] [facility] [id number] [place] [address] May, [facility] [id number] [address] Apr, [facility] [address] [facility] [id number] [address] Apr, [facility] [address] [id number] [address] Apr, [facility] [address] [id number] [address] Apr, IMMUNIZATIONS No Known Immunizations SOCIAL HISTORY Never Assessed REASON FOR VISIT Controlled Med Refill PLAN OF CARE VITAL SIGNS MEDICATIONS Medication Instructions Dosage Frequency Start Date End Date Duration Status Hydrocodone-Acetaminophen 10-325 MG Orally 3 times a day 1 tablet as needed for pain 8h Apr, 28 days Active RESULTS No Results PROCEDURES No Known procedures INSTRUCTIONS MEDICATIONS ADMINISTERED No Known Medications MEDICAL (GENERAL) HISTORY Type Description Date Medical History hypogonadism Medical History hyperlipidemia Medical History pre-diabetic Medical History chronic pain Medical History COPD Surgical History skin cancer 1999 Hospitalization History surgery Hospitalization History MRSA infection 05/2015
--- OUTSIDE RECORDS SUMMARY | 2018-10-30 16:57 | XMS REPORT ---
Author Author JOSÉ LUIS RODRÍGUEZ [facility] eClinical[employer] Address Unknown Phone Unavailable Care Team Providers Care Intelligence Senior Sergeant Name Role Phone JOSÉ LUIS RODRÍGUEZ CP Unavailable Allergies, Adverse Reactions, Alerts Substance Reaction Event Type N.K.D.A. 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.1 [...] Start Date End Date Status Dosage Hydrocodone-Acetaminophen [facility] [address]-58 10-325 MG February 15, 2015 1 tablet by Oral route 3 times per day PRN Viagra [facility] [address]-60 100 MG Orally Once a day prn Jul 12, 2015Aug 1 tablet as needed Symbicort [facility] [address]-43 160-4.5 mcg/actuation Dec 12, 2014 inhale 2 puffs by inhalation route 2 times per day in the morning and evening MetFORMIN HCl ER [facility] [address]-43 500 MG Orally Once a day June 20, 2015 1 tablet at HS for 1 week then 1 tab BID Trulicity [facility] [address]-91 0.75 MG/0.5ML Subcutaneous Once a day 4 samples given Jul 12, 2015 Aug 11, 2015 0.5 ml Procedures Procedure Coding System Code Date Office Visit, Est Pt., Level 3 CPT-4 78843 Jul 12, 2015 No Charge CPT-4 84185 Jul 12, 2015 Vital Signs Date/Time: Jul 12, 2015 Temperature 98.0 F Weight 230 lbs Height 66 in BMI 37.12 Index Blood Pressure Diastolic 82 mmHg Blood Pressure Systolic 150 mmHg Cardiac Monitoring Heart Rate 72 bpm Results Name Result Date Reference Range Unit Abnormality Flag [employer] Summary Purpose eClinicalWorks Submission
--- OUTSIDE RECORDS SUMMARY | 2018-10-30 16:57 | XMS REPORT ---
Author Author JOSÉ LUIS RODRÍGUEZ [facility] Address [address] [place] [address] Care Team Providers Care Information Delivery Analyst Name Role Phone JOSÉ LUIS RODRÍGUEZ Unavailable PROBLEMS Type Condition ICD9-CM Code [id number] Code Onset Dates Condition Status SNOMED Code Problem Chronic pain G89.29 Active 62631060 Problem Family history of diabetes mellitus Z83.3 Active 109237214 Problem Hypertriglyceridemia E78.1 Active 182375081 Problem History of MRSA infection Z86.14 Active 289221993 Problem Insomnia, unspecified type G47.00 Active 016801552 Problem Primary insomnia F51.01 Active 7219564 Problem Osteoarthritis M19.90 Active 304406184 Problem Hyperinsulinemia E16.1 Active 16718057 Problem Essential hypertension I10 Active 39109934 Problem Chronic obstructive pulmonary disease, unspecified COPD type J44.9 Active 95046994 ALLERGIES Unknown Allergies SOCIAL HISTORY No smoking Hx information available PLAN OF CARE VITAL SIGNS MEDICATIONS Unknown Medications RESULTS No Results PROCEDURES No Known procedures IMMUNIZATIONS No Known Immunizations
--- OUTSIDE RECORDS SUMMARY | 2018-10-30 16:57 | XMS REPORT ---
Author Author JOSÉ LUIS RODRÍGUEZ Organization [employer] Address Unknown Phone Unavailable Care Team Providers Care Solder Sprayer Name Role Phone JOSÉ LUIS RODRÍGUEZ CP [...] Start Date End Date Status Dosage Hydrocodone-Acetaminophen [facility] [address]-80 10-325 MG February 15, 2015 1 tablet by Oral route 3 times per day PRN Results No Known Results Summary Purpose eClinicalWorks Submission
--- OUTSIDE RECORDS SUMMARY | 2018-10-30 16:57 | XMS REPORT ---
Author Author JOSÉ LUIS RODRÍGUEZ Organization [facility] Address [address] [place] [address] Care Team Providers Care Manager Reimbursement Name Role Phone JOSÉ LUIS RODRÍGUEZ Unavailable PROBLEMS Type Condition ICD9-CM Code [id number] Code Onset Dates Condition Status SNOMED Code Problem Chronic pain G89.29 Active 77489537 Problem Family history of diabetes mellitus Z83.3 Active 049413486 Problem Hypertriglyceridemia E78.1 Active 826666421 Problem History of MRSA infection Z86.14 Active 335211137 Problem Insomnia, unspecified type G47.00 Active 162149324 Problem Primary insomnia F51.01 Active 2073501 Problem Osteoarthritis M19.90 Active 336245997 Problem Hyperinsulinemia E16.1 Active 53945030 Problem Essential hypertension I10 Active 46988548 Problem Chronic obstructive pulmonary disease, unspecified COPD type J44.9 Active 37946653 ALLERGIES No Information SOCIAL HISTORY Never Assessed [...]
--- OUTSIDE RECORDS SUMMARY | 2018-10-30 16:57 | XMS REPORT ---
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 Active Problem Umbilical hernia without mention of obstruction or gangrene 553.1 Active Problem Generalized osteoarthrosis, 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.04 Active Problem Family history of diabetes mellitus V18.0 Active Problem Other chronic pain 338.29 Active Problem Family history of malignant neoplasm of gastrointestinal tract V16.0 Active Problem Other seborrheic keratosis 702.19 Active Problem Persistent disorder of initiating or maintaining sleep 307.42 Active Medications No Known Medications Procedures Procedure Coding System Code Date LIPID PANEL CPT-4 47302 Nov 16, 2015 COMPREHEN METABOLIC PANEL CPT-4 21719 Nov 16, 2015 ASSAY OF INSULIN CPT-4 16059 Nov 16, 2015 VENIPUNCT, ROUTINE* CPT-4 79195 Nov 16, 2015 Results Name Result Date Reference Range Unit Abnormality Flag ROUTINE VENIPUNCTURE Summary Purpose eClinicalWorks Submission
--- OUTSIDE RECORDS SUMMARY | 2018-10-30 16:57 | XMS REPORT ---
Author Author JOSÉ LUIS RODRÍGUEZ Organization [employer] Address Unknown Phone Unavailable Care Team Providers Care Business Services Vice President Name Role Phone JOSÉ LUIS RODRÍGUEZ CP Unavailable Allergies No Known Allergies Problems Problem Type Condition ICD-9 Code Onset Dates Condition Status Problem Nondependent tobacco use disorder 305.1 Active [...] Start Date End Date Status Dosage Hydrocodone-Acetaminophen [facility] [address]-37 10-325 MG February 15, 2015 1 tablet by Oral route 3 times per day PRN Results No Known Results Summary Purpose eClinicalWorks Submission
--- OUTSIDE RECORDS SUMMARY | 2018-10-30 16:57 | XMS REPORT ---
Author Author JOSÉ LUIS RODRÍGUEZ [facility] Address [address] [place] [address] Care Team Providers Care Pattern Finisher Name Role Phone JOSÉ LUIS RODRÍGUEZ Unavailable PROBLEMS Type Condition ICD9-CM Code [id number]-KT Code Onset Dates Condition Status SNOMED Code Problem Umbilical hernia without mention of obstruction or gangrene 553.1 Active 701579333 Problem History of MRSA infection Z86.14 Active 518877429 Problem Family history of diabetes mellitus V18.0 Active 419304513 Problem Chronic obstructive pulmonary disease, unspecified COPD type J44.9 Active 35555005 Problem Chronic pain G89.29 Active 93003835 Problem Family history of diabetes mellitus Z83.3 Active 818115626 Problem Osteoarthritis M19.90 Active 587810669 Problem Hypertriglyceridemia E78.1 Active 483928870 Problem 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 Active 80301608 Problem Essential hypertension, benign 401.1 Active 7582076 Problem Family history of malignant neoplasm of gastrointestinal tract V16.0 Active 730064232 Problem Other chronic pain 338.29 Active 47695913 Problem Chronic airway obstruction, not elsewhere classified 496 Active 90758049 Problem Persistent disorder of initiating or maintaining sleep 307.42 Active 20900867 Problem Family history of malignant neoplasm, prostate V16.42 Active 493054635 Problem Generalized osteoarthrosis, 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.04 Active 18232912 ALLERGIES Unknown Allergies SOCIAL HISTORY No smoking Hx information available PLAN OF CARE VITAL SIGNS MEDICATIONS Medication Instructions Dosage Frequency Start Date End Date Duration Status Amoxicillin 500 MG Orally every 8 hrs 1 tablet 8h Oct, Oct, 10 day(s) Active RESULTS No Results PROCEDURES No Known procedures IMMUNIZATIONS No Known Immunizations
--- OUTSIDE RECORDS SUMMARY | 2018-10-30 16:57 | XMS REPORT ---
Author Author JOSÉ LUIS RODRÍGUEZ [facility] eClinicalWorks Address Unknown Phone Unavailable Care Team Providers Care Program Director [employer] Name Role Phone JOSÉ LUIS RODRÍGUEZ CP [...] pain 338.29 Active Medications No Known Medications Results No Known Results Summary Purpose eClinicalWorks Submission
--- OUTSIDE RECORDS SUMMARY | 2018-10-30 16:57 | XMS REPORT ---
Author Author JOSÉ LUIS RODRÍGUEZ Organization [facility] Address [address] [place] [address] Care Team Providers Care Security Nurse Name Role Phone JOSÉ LUIS RODRÍGUEZ Unavailable PROBLEMS Type Condition ICD9-CM Code IEI54-EI Code Onset Dates Condition Status SNOMED Code Problem Chronic pain G89.29 Active 18715663 Problem Family history of diabetes mellitus Z83.3 Active 480452661 Problem Hypertriglyceridemia E78.1 Active 036815799 Problem History of MRSA infection Z86.14 Active 027625966 Problem Insomnia, unspecified type G47.00 Active 317526628 Problem Primary insomnia F51.01 Active 5902284 Problem Osteoarthritis M19.90 Active 173992384 Problem 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 Active 82621522 Problem Essential hypertension I10 Active 88766724 Problem Chronic obstructive pulmonary disease, unspecified COPD type J44.9 Active [id number] ALLERGIES No Information ENCOUNTERS Encounter Location Date Diagnosis [place] [id number] [place] [address] 84470- 9040 Apr, [place] [id number] [place] [address] 20451- 6548 March, Insomnia, unspecified type G47.00 [facility] [id number] [place] [address] 82206- 0800 Feb, Chronic pain G89.29 [facility] [id number] [place] [address] 40487- 8317 Feb, Chronic pain G89.29 [facility] [id number] [place] [address] 64297- 0231 Jan, Chronic pain G89.29 [facility] [id number] [place] [address] 86010- 6591 Dec, Chronic pain G89.29 [facility] [address], [place] [address] 2377 Nov, Chronic pain G89.29 and Insomnia, unspecified type G47.00 [facility] [id number] [place] [address] 59832- 6949 Oct, Insomnia, unspecified type G47.00 ; Chronic pain G89.29 and Colon cancer screening Z12.11 [place] [id number] [place] [address] 78211- 6356 Oct, Chronic pain G89.29 [place] [id number] [place] [address] 57471- 6225 Sep, Chronic pain G89.29 and Insomnia, unspecified type G47.00 [place] [id number] [place] [address] 47761- 2564 Sep, Chronic pain G89.29 [place] [id number] [place] [address] 49825- 4761 Sep, [place] [id number] [place] [address] 26771- 0105 Aug, Medicare welcome exam Z00.00 ; Encounter for immunization Z23 ; Colon cancer screening Z12.11 and Encounter for screening for lung cancer Z12.2 [place] [address], [place] [address] 1458 Aug, [place] [id number] [place] [address] 20804- 9155 Aug, Chronic pain G89.29 and Insomnia, unspecified type G47.00 [place] [id number] [place] [address] 49520- 7689 Aug, Hypertriglyceridemia E78.1 [place] [id number] [address]- 8852 Jul, Chronic pain G89.29 and Insomnia, unspecified type G47.00 [place] [id number] [place] [address] 14530- 7688 Jun, Hypertriglyceridemia E78.1 [facility] [address] 38643- 4872 Jun, Chronic pain G89.29 and Insomnia, unspecified type G47.00 [facility] [id number] [place] [address] 55079- 1629 Jun, [facility] [address] 08104- 9308 Jun, [facility] [address] 00326- 7797 May, Hyperinsulinemia E16.1 ; Chronic pain G89.29 ; Insomnia, unspecified type G47.00 and Rash R21 [place] [address] 79426- 6344 May, Chronic pain G89.29 [facility] [id number] [place] [address] 01439- 7900 May, Hypertriglyceridemia E78.1 [place] [address] 74110- 7102 Apr, Chronic pain G89.29 [facility] [id number] [place] [address] 90052- 9205 Apr, Chronic pain G89.29 ; Hyperinsulinemia E16.1 ; Hypertriglyceridemia E78.1 and Primary insomnia F51.01 [facility] [id number] [place] [address] 90680- 1346 March, Chronic pain G89.29 [place] [address] 79466- 3415 March, Chronic pain G89.29 [facility] [id number] [place] [address] 97127- 4171 Feb, [facility] [address] 20720- 7365 Feb, Chronic pain G89.29 [facility] [id number] [place] [address] 28134- 8542 Jan, Chronic pain G89.29 [facility] [id number] [place] [address] 44964- 5825 07 Dec, 2016 Chronic pain G89.29 [facility] [id number] [place] [address] 36263- 4111 Dec, [facility] [id number] [place] [address] 05438- 5569 Nov, Hypertriglyceridemia E78.1 [facility] [id number] [place] [address] 31643- 2751 Nov, [facility] [id number] [place] [address] 78165- 0265 Nov, Chronic pain G89.29 ; Hypertriglyceridemia E78.1 and Chronic obstructive pulmonary disease, unspecified COPD type J44.9 [facility] [id number] [place] [address] 33401- 0628 Nov, Chronic pain G89.29 [facility] [id number] [place] [address] 65753- 3470 Oct, Chronic pain G89.29 [facility] [id number] [place] [address] 17291- 7151 Oct, [facility] [id number] [place] [address] 51229- 3943 Sep, Chronic obstructive pulmonary disease, unspecified COPD type J44.9 and Abscess L02.91 [facility] [id number] [place] [address] 35288- 9749 16 Sep, 2016 Chronic pain G89.29 [facility] [id number] [place] [address] 23931- 6704 Aug, Chronic pain G89.29 [facility] [id number] [place] [address] 40611- 6738 Aug, Chronic pain G89.29 [facility] [address] 94450- 9970 Aug, Cutaneous horn L85.8 and Skin tag L91.8 [facility] [address] 70988- 5920 Jul, [facility] [address] 39170- 7976 Jul, Hypertriglyceridemia E78.1 [place] [address] 39637- 7639 07 Jul, 2016 Other chronic pain G89.29 ; Essential hypertension I10 ; Hyperinsulinemia E16.1 ; Hyperlipidemia, unspecified hyperlipidemia type E78.5 and Cutaneous horn L85.8 [facility] [address] 73355- 5365 Jun, Chronic pain G89.29 [facility] [address] 69618- 8506 May, Chronic pain G89.29 [facility] [address] 54827- 4779 May, [facility] [id number] [place] [address] 08306- 1342 May, Skin infection L08.9 [facility] [address] 05700- 0287 Apr, Chronic pain G89.29 [facility] [address] 36609- 0672 Apr, [facility] [address] 96524- 0187 Apr, Chronic pain G89.29 [facility] [id number] [place] [address] 44746- 6798 March, [facility] [id number] [place] [address] 61651- 7560 Feb, Chronic pain G89.29 ; Hyperinsulinemia E16.1 and Hypertriglyceridemia E78.1 [facility] [id number] [place] [address] 12613- 2075 Feb, [facility] [id number] [place] [address] 58094- 9776 Jan, [facility] [id number] [place] [address] 60411- 0226 Dec, [facility] [id number] [place] [address] 77854- 7093 Nov, [facility] [id number] [place] [address] 55815- 1976 Oct, [facility] [id number] [place] [address] 99385- 4038 Oct, Hyperinsulinemia E16.1 [facility] [id number] [place] [address] 81149- 4575 Oct, Other chronic pain G89.29 ; Chronic obstructive pulmonary disease, unspecified COPD type J44.9 ; Insomnia, unspecified type G47.00 ; Hyperinsulinemia E16.1 and Essential hypertension I10 [facility] [id number] [place] [address] 34955- 7272 Sep, [facility] [id number] [place] [address] 57563- 7800 Aug, [facility] [id number] [place] [address] 03566- 4577 30 Jul, 2015 [facility] [id number] [place] [address] 49568- 9177 14 Jul, 2015 [facility] [id number] [place] [address] 43323- 3849 14 Jul, 2015 Overweight 278.02 and Hyperinsulinemia 251.1 [facility] [id number] [place] [address] 45640- 2102 Jul, [facility] [id number] [place] [address] 32691- 7203 Jun, Skin tags, multiple acquired 701.9 [facility] [address] 00217- 3363 Jun, Other chronic pain 338.29 ; Erectile dysfunction 607.84 ; Hyperinsulinemia 251.1 and Hypertension 401.9 [facility] [address] 29713- 8350 Jun, [facility] [address] 31309- 6566 Jun, [facility] [address] 20664- 1733 Jun, [facility] [address] 56126- 3847 May, Pure hyperglyceridemia 272.1 [facility] [address] 85002- 5305 May, Pure hyperglyceridemia 272.1 [facility] [id number] [place] [address] 07332- 9110 May, [facility] [id number] [place] [address] 53084- 6770 May, Overgrown toenails 703.8 ; Seborrheic keratosis 702.19 ; Skin tag 701.9 ; Warts, genital 078.11 ; Cramps, extremity 729.82 ; Increased appetite 783.6 and Heat rash 705.1 [facility] [id number] [place] [address] 60081- 3104 May, [facility] [id number] [place] [address] 44595- 9570 Apr, [facility] [address] 31192- 2325 08 Apr, 2015 [facility] [place] [facility] [address] [id number] [place] [address]- 9245 March, [facility] [place] [facility] [address] [id number] [place] [address]- 6452 14 Feb, 2015 [facility] [place] [facility] [address] [id number] [place] [address]- 3626 Feb, [facility] [place] [facility] [address] [id number] [place] [address]- 2353 27 Jan, 2015 [facility] [place] [facility] [address] [id number] [place] [address]- 2676 27 Jan, 2015 [facility] [place] [facility] [address] [id number] [place] [address]- 1028 27 Jan, 2015 [facility] [place] [facility] [address] [id number] [place] [address]- 4619 Jan, [facility] [place] [facility] [address] [id number] [place] [address]- 7340 Jan, [facility] [place] [facility] [address] [id number] [place] [address]- 7194 19 Jan, 2015 [facility] [place] [facility] [address] [id number] [place] [address]- 1096 16 Jan, 2015 [facility] [place] [facility] [address] [id number] [place] [address]- 8217 16 Jan, 2015 [facility] [place] [facility] [address] [id number] [place] [address]- 7525 10 Jan, 2015 [facility] [place] [facility] [address] [id number] [place] [address]- 0045 10 Jan, 2015 [facility] [place] [facility] [address] [id number] [place] 9303 05 Jan, 2015 [facility] [place] [facility] [address] [id number] [place] [address]- 0538 05 Jan, 2015 [facility] [place] [facility] [address] [id number] [place] [address]- 2513 Dec, 2014 [facility] [place] [facility] [address] [id number] [place] [address]- 0885 Dec, 2014 [facility] [place] [facility] [address] [id number] [place] 8616 Dec, 2014 [facility] [place] [facility] [address] [id number] [place] [address]- 4492 Dec, 2014 [facility] [place] [facility] [address] [id number] [place] [address]- 7194 Dec, 2014 [facility] [place] [facility] [address] [id number] [place] [address]- 6638 Dec, 2014 [facility] [place] [facility] [address] [facility] [id number] [place] [address]- 1885 Dec, 2014 [facility] [place] [facility] [address] [id number] [place] [address]- 5011 Dec, 2014 [facility] [place] [facility] [address] [id number] [place] [address]- 1848 Nov, [facility] [place] [facility] [address] [id number] [place] [address]- 0060 Nov, [facility] [place] [facility] [address] [facility] [id number] [place] [address]- 9213 Nov, [facility] [place] [facility] [address] [id number], [place] [address]- 0438 Nov, [facility] [place] [facility] [address] [id number] [place] [address]- 7991 Nov, [facility] [place] [facility] [address] [id number] [place] [address]- 0175 Nov, [facility] [place] [facility] [address] [id number] [place] [address]- 7189 Nov, [facility] [place] [facility] [address] [id number], [place] [address]- 5189 Nov, [facility] [place] [facility] [address] [id number] [place] 4668 Oct, [facility] [place] [facility] [address] [id number] [place] [address]- 5722 Oct, [facility] [place] [facility] [address] [id number] [place] [address]- 8613 Sep, [facility] [place] [facility] [address] [id number] [place] [address]- 4785 Sep, [facility] [place] [facility] [address] [id number] [place] 8530 Sep, [facility] [place] [facility] [address] [id number] [place] [address]- 0193 Sep, [facility] [place] [facility] [address] [id number] [place] [address]- 5720 Aug, [facility] [place] [facility] [address] [id number] [place] [address]- 3220 Aug, [facility] [place] [facility] [address] [id number], [place] [address]- 7951 Aug, [facility] [place] [facility] [address] [id number], [place] [address]- 8445 Aug, [facility] [place] [facility] [address] [id number], [place] [address]- 5562 Aug, [facility] [place] [facility] [address] [id number], [place] [address]- 8227 Aug, [facility] [place] [facility] [address] [id number] 1612 Aug, [facility] [place] [facility] [address] [id number]- 4957 Aug, [facility] [place] [facility] [address] [id number] [place] 9665 Jul, [facility] [place] [facility] [address] [id number] [place] [address]- 9945 Jul, [facility] [place] [facility] [address] [id number] [place] [address]- 3826 Jul, [facility] [place] [facility] [address] [id number] [place] [address]- 8079 Jul, [facility] [place] [facility] [address] [id number] [place] [address]- 4442 Jul, [facility] [place] [facility] [address] [id number] [place] [address]- 8596 Jun, [facility] [place] [facility] [address] [id number] [place] [address]- 8374 Jun, [facility] [place] [facility] [address] [id number] [place] [address]- 3051 Jun, [facility] [place] [facility] [address] [id number] [place] [address]- 7959 Jun, [facility] [place] [facility] [address] [id number] [place] [address]- 7437 Jun, [facility] [place] [facility] [address] [id number] [place] [address]- 2811 Jun, [facility] [place] [facility] [address] [id number] [place] [address]- 1920 May, [facility] [place] [facility] [address] [id number] [place] [address]- 2186 May, [facility] [place] [facility] [address] [id number] [place] [address]- 8174 May, [facility] [place] [facility] [address] [id number] [place] [address]- 1079 May, [facility] [place] [facility] [address] [id number] [place] [address]- 9016 Apr, [facility] [place] [facility] [address] [id number] [place] [address]- 8165 Apr, [facility] [place] [facility] [address] [id number] [place] [address]- 2266 Apr, [facility] [place] [facility] [address] [id number] [place] [address]- 3228 Apr, [facility] [place] [facility] [address] [id number] [place] [address]- 4227 Apr, [facility] [place] [facility] [address] [id number] [place] [address]- 5937 Apr, [facility] [place] [facility] [address] [id number] [place] [address]- 2682 March, [facility] [place] [facility] [address] [id number] [place] [address]- 2863 March, [facility] [place] [facility] [address] [id number] [place] [address]- 9645 March, [facility] [place] [facility] [address] [id number] [place] [address]- 6227 March, [facility] [place] [facility] [address] [id number] [place] [address]- 5755 Feb, [facility] [place] [facility] [address] [id number] [place] [address]- 9539 Feb, [facility] [place] [facility] [address] [id number] [place] [address]- 9921 Feb, [facility] [place] [facility] [address] [id number] [place] [address]- 7024 Feb, [facility] [place] [facility] [address] [id number] [place] [address]- 8500 Feb, [facility] [place] [facility] [address] [id number] [place] [address]- 9237 Feb, [facility] [place] [facility] [address] [id number] [place] [address]- 4500 Feb, [facility] [place] [facility] [address] [id number] [place] [address]- 2404 Feb, [facility] [place] [facility] [address] [id number] [place] [address]- 1297 Feb, [facility] [place] [facility] [address] [id number] [place] [address]- 0851 Feb, [facility] [place] [facility] [address] [id number] [place] [address]- 3832 Feb, [facility] [place] [facility] [address] [id number] [place] [address]- 8432 Feb, [facility] [place] [facility] [address] [id number] [place] [address]- 1894 Feb, [facility] [place] [facility] [address] [id number] [place] [address]- 4718 Feb, [facility] [place] [facility] [address] [id number] [place] [address]- 5744 Feb, [facility] [place] [facility] [address] [id number] [place] [address]- 1058 Feb, [facility] [place] [facility] [address] [id number] [place] [address]- 9570 Jan, [facility] [place] [facility] [address] [id number] [place] [address]- 1827 Jan, [facility] [place] [facility] [address] [id number] [place] [address]- 7134 Dec, [facility] [place] [facility] [address] [id number] [place] [address]- 1277 Dec, [facility] [place] [facility] [address] [id number] [place] [address]- 0447 Dec, [facility] [place] [facility] [address] [id number] [place] [address]- 4967 Dec, [facility] [place] [facility] [address] [id number] [place] [address]- 4255 Dec, [facility] [place] [facility] [address] [id number] [place] [address] Dec, [facility] [place] [facility] [address] [id number] [place] [address] Dec, [facility] [place] [facility] [address] [id number] [place] [address] Nov, [facility] [place] [facility] [address] [id number] [place] [address] Nov, [facility] [place] [facility] [address] [id number] [place] [address] Nov, [facility] [place] [facility] [address] [id number] [place] [address] Nov, [facility] [place] [facility] [address] [id number] [place] [address] Oct, [facility] [place] [facility] [address] [id number], [place] [address] Oct, [facility] [place] [facility] [address] [id number] [place] [address] Sep, [facility] [place] [facility] [address] [id number], [place] [address] Sep, [facility] [place] [facility] [address] [id number], [place] [address] Aug, [facility] [place] [facility] [address] [id number], [place] [address] Aug, [facility] [place] [facility] [address] [id number] [place] [address] Aug, [facility] [place] [facility] [address] [id number], [place] [address] Aug, [facility] [place] [facility] [address] [id number], [place] [address] Aug, [facility] [place] [facility] [address] [id number], [place] [address] Aug, [facility] [address] [id number] [place] [address] Aug, [facility] [place] [facility] [address] [id number], [place] [address] Aug, [facility] [address] [facility] [id number] [place] [address] Aug, [facility] [place] [facility] [address] [id number] [place] [address] Aug, [facility] [address] [facility] [id number] [place] [address] Jun, [facility] [address] [facility] [id number] [place] [address] Jun, [facility] [address] [id number], [place] [address] May, [facility] [place] [facility] [address] [facility] [id number], [place] [address] Apr, [facility] [address] [id number], [place] [address] Apr, [facility] [address] [id number], [place] [address] March, [facility] [address] [id number], [place] [address] Feb, [facility] [place] [facility] [address] [facility] [id number], [place] [address] Jan, [facility] [place] [facility] [address] [id number], [place] [address] Jan, [facility] [place] [facility] [address] [facility] [id number], [place] [address] Dec, [facility] [place] [facility] [address] [facility] [id number], [place] [address] Dec, [facility] [place] [facility] [address] [id number] [place] [address] 39[address] Nov, [facility] [address] [facility] [id number] [place] [address] Jul, [facility] [address] [facility] [id number] [place] [address] Jul, [facility] [address] [facility] [id number] [place] [address] Jun, [facility] [address] [id number] [place] [address] May, [facility] [address] [facility] [id number] [place] [address]65 May, [facility] [address] [facility] [id number] [place] [address] May, [facility] [address] [id number], [place] [address] May, [facility] [address] [facility] [id number] [place] [address] May, [facility] [address] [facility] [id number], [place] [address] May, [facility] [address] [facility] [id number], [place] [address] 139[address] May, [facility] [address] [facility] [id number], [place] [address] Apr, [facility] [address] [facility] [id number], [place] [address] Apr, [facility] [address] [facility] [id number], [place] [address] Apr, [facility] [address] [facility] [id number], [place] [address] Apr, IMMUNIZATIONS No Known Immunizations SOCIAL HISTORY Never Assessed REASON FOR VISIT CT Scan PLAN OF CARE VITAL SIGNS MEDICATIONS Unknown Medications RESULTS No Results PROCEDURES No Known procedures INSTRUCTIONS MEDICATIONS ADMINISTERED No Known Medications MEDICAL (GENERAL) HISTORY Type Description Date Medical History hypogonadism Medical History hyperlipidemia Medical History pre-diabetic Medical History chronic pain Medical History COPD Surgical History skin cancer 1999 Hospitalization History surgery Hospitalization History MRSA infection 05/2015
--- OUTSIDE RECORDS SUMMARY | 2018-10-30 16:58 | XMS REPORT ---
Author Author JOSÉ LUIS RODRÍGUEZ Organization [facility] Address [address] [place] [address] Care Team Providers Care Blue Leather Setter Name Role Phone JOSÉ LUIS RODRÍGUEZ Unavailable PROBLEMS Type Condition ICD9-CM Code CNR12-LP Code Onset Dates Condition Status SNOMED Code Problem Hypertriglyceridemia E78.1 Active 642827944 Problem Hyperinsulinemia E16.1 Active 91013205 Problem Family history of diabetes mellitus Z83.3 Active 975047301 Problem History of MRSA infection Z86.14 Active 958808676 Problem Chronic pain G89.29 Active 07369190 Problem Dysthymia F34.1 Active 37666372 Problem Insomnia, unspecified type G47.00 Active 442587251 Problem Chronic obstructive pulmonary disease, unspecified COPD type J44.9 Active 63456822 Problem Osteoarthritis M19.90 Active 202380507 Problem Primary insomnia F51.01 Active 0378425 Problem Essential hypertension I10 Active 15479011 ALLERGIES No Information ENCOUNTERS Encounter Location Date Diagnosis [place] [id number] [place] [address] 54027- 6900 May, [place] [address] [place] [id number] [place] [address] 95703- 9551 Apr, Hyperinsulinemia E16.1 ; Hypertriglyceridemia E78.1 and Fatigue, unspecified type R53.83 [place] [id number] [place] [address] 46137- 7180 Apr, Hyperinsulinemia E16.1 ; Chronic pain G89.29 ; Primary insomnia F51.01 ; Chronic obstructive pulmonary disease, unspecified COPD type J44.9 ; Dysthymia F34.1 ; Hypertriglyceridemia E78.1 ; Fatigue, unspecified type R53.83 and Rash R21 [place] [address] [place] [id number] [place] [address] 77363- 4084 March, Chronic pain G89.29 and Insomnia, unspecified type G47.00 [facility] [address] [place] [id number] [place] [address] 37305- 6391 March, Insomnia, unspecified type G47.00 [facility] [address] [place] [id number] [place] [address] 32623- 7603 Feb, Chronic pain G89.29 [facility] [address] [place] [id number] [place] [address] 37876- 9525 Feb, Chronic pain G89.29 [facility] [address] [place] [id number] [place] [address] 64915- 9305 Jan, Chronic pain G89.29 [facility] [address] [place] [id number] [place] [address] 60659- 6494 Dec, Chronic pain G89.29 [facility] [address] [place] [id number] [place] [address] 33479- 2541 Nov, Chronic pain G89.29 and Insomnia, unspecified type G47.00 [facility] [address] [place] [id number] [place] [address] 30285- 8028 Oct, Insomnia, unspecified type G47.00 ; Chronic pain G89.29 and Colon cancer screening Z12.11 [facility] [address] [place] [id number] [place] [address] 75826- 8306 Oct, Chronic pain G89.29 [facility] [address] [place] [id number] [place] [address] 81856- 6225 Sep, Chronic pain G89.29 and Insomnia, unspecified type G47.00 [facility] [address] [place] [id number] [place] [address] 46562- 3727 Sep, Chronic pain G89.29 [facility] [address] [place] [id number] [place] [address] 04341- 1527 Sep, [facility] [address] [place] [id number] [place] [address] 66408- 2092 Aug, Medicare welcome exam Z00.00 ; Encounter for immunization Z23 ; Colon cancer screening Z12.11 and Encounter for screening for lung cancer Z12.2 [place] [address] 55231- 1821 Aug, [place] [address] 54592- 5397 Aug, Chronic pain G89.29 and Insomnia, unspecified type G47.00 [place] [address] 21696- 0070 Aug, Hypertriglyceridemia E78.1 [place] [address] 45690- 8629 Jul, Chronic pain G89.29 and Insomnia, unspecified type G47.00 [place] [address] 02461- 2265 Jun, Hypertriglyceridemia E78.1 [place] [address] 81527- 3272 Jun, Chronic pain G89.29 and Insomnia, unspecified type G47.00 [place] [address] 91515- 0539 Jun, [place] [address] 97427- 3308 Jun, [place] [address] 36975- 2241 May, Hyperinsulinemia E16.1 ; Chronic pain G89.29 ; Insomnia, unspecified type G47.00 and Rash R21 [place] [address] 55735- 5485 May, Chronic pain G89.29 [place] [address] 41419- 6980 May, Hypertriglyceridemia E78.1 [place] [address] [place] [address]- 3845 Apr, Chronic pain G89.29 [facility] [address] 25667- 8814 Apr, Chronic pain G89.29 ; Hyperinsulinemia E16.1 ; Hypertriglyceridemia E78.1 and Primary insomnia F51.01 [facility] [address] 99824- 6423 March, Chronic pain G89.29 [facility] [address] 54301- 3248 March, Chronic pain G89.29 [facility] [address] 84470- 0904 Feb, [facility] [address] 61322- 1314 Feb, Chronic pain G89.29 [facility] [address] 96188- 0937 Jan, Chronic pain G89.29 [facility] [address] [place] [id number] [place] [address] 28991- 2006 Dec, Chronic pain G89.29 [facility] [address] [place] [id number] [place] [address] 52494- 4117 Dec, [facility] [address] [place] [id number] [place] [address] 27874- 8945 Nov, Hypertriglyceridemia E78.1 [facility] [address] [place] [id number] [place] [address] 99927- 6866 Nov, [facility] [address] [place] [id number] [place] [address] 94280- 0300 Nov, Chronic pain G89.29 ; Hypertriglyceridemia E78.1 and Chronic obstructive pulmonary disease, unspecified COPD type J44.9 [facility] [address] [place] [id number] [place] [address] 21769- 5055 Nov, Chronic pain G89.29 [facility] [address] [place] [id number] [place] [address] 65632- 0155 Oct, Chronic pain G89.29 [facility] [address] [place] [id number] [place] [address] 93356- 6575 05 Oct, 2016 [facility] [address] 09608- 7284 Sep, Chronic obstructive pulmonary disease, unspecified COPD type J44.9 and Abscess L02.91 [facility] [address] 75517- 3821 16 Sep, 2016 Chronic pain G89.29 [place] [address] 15013- 4227 Aug, Chronic pain G89.29 [place] [address] 31908- 2545 Aug, Chronic pain G89.29 [facility] [address] 61473- 0455 Aug, Cutaneous horn L85.8 and Skin tag L91.8 [place] [address] 87087- 0021 Jul, [place] [address] 49656- 0672 Jul, Hypertriglyceridemia E78.1 [place] [address] 35147- 7957 07 Jul, 2016 Other chronic pain G89.29 ; Essential hypertension I10 ; Hyperinsulinemia E16.1 ; Hyperlipidemia, unspecified hyperlipidemia type E78.5 and Cutaneous horn L85.8 [place] [address] [place] [id number] [place] [address] 58646- 4707 Jun, Chronic pain G89.29 [place] [address] [place] [id number] [place] [address] 26730- 2116 May, Chronic pain G89.29 [place] [address] [address]- 7941 May, [facility] [address] [address]- 3810 May, Skin infection L08.9 [facility] [address] [address]- 1900 Apr, Chronic pain G89.29 [facility] [address] [place] [id number] [place] [address] 20394- 8081 Apr, [facility] [address] [place] [address] 65014- 6087 Apr, Chronic pain G89.29 [facility] [address] [place] [address] 09579- 2326 March, [facility] [address] [place] [address] 09958- 1321 Feb, Chronic pain G89.29 ; Hyperinsulinemia E16.1 and Hypertriglyceridemia E78.1 [facility] [address] [address]- 9055 Feb, [facility] [address] [place] [address] 49064- 5158 Jan, [facility] [address] [address]- 4780 Dec, [facility] [address] [place] [address]- 4002 Nov, [facility] [address] [place] [address]- 6526 Oct, [facility] [address] [place] [id number] [place] [address] 59480- 7486 Oct, Hyperinsulinemia E16.1 [facility] [address] [place] [address]- 2326 Oct, Other chronic pain G89.29 ; Chronic obstructive pulmonary disease, unspecified COPD type J44.9 ; Insomnia, unspecified type G47.00 ; Hyperinsulinemia E16.1 and Essential hypertension I10 [facility] [address] 20400- 5328 Sep, [facility] [address] [place] [id number] [place] [address] 58573- 4072 Aug, [facility] [address] 95724- 4547 Jul, [facility] [address] 12804- 5477 Jul, [facility] [address] 73664- 4999 Jul, Overweight 278.02 and Hyperinsulinemia 251.1 [facility] [address] 11565- 7123 Jul, [facility] [address] 13208- 4828 Jun, Skin tags, multiple acquired 701.9 [facility] [address] 42383- 4574 Jun, Other chronic pain 338.29 ; Erectile dysfunction 607.84 ; Hyperinsulinemia 251.1 and Hypertension 401.9 [facility] [address] [place] [id number] [place] [address] 54984- 5372 Jun, [facility] [address] 47118- 3915 Jun, [facility] [address] [place] [id number] [place] [address] 03280- 6828 Jun, [facility] [address] 91221- 3759 May, Pure hyperglyceridemia 272.1 [facility] [address] [place] [id number] [place] [address] 44885- 9707 May, Pure hyperglyceridemia 272.1 [place] [address] [address]- 8198 May, [facility] [address], [place] [address]- 2660 May, Overgrown toenails 703.8 ; Seborrheic keratosis 702.19 ; Skin tag 701.9 ; Warts, genital 078.11 ; Cramps, extremity 729.82 ; Increased appetite 783.6 and Heat rash 705.1 [facility] [address] [place] [address]- 3976 May, [facility] [address] [place] [id number] [address]- 4096 Apr, [facility] [address] [address]- 4212 Apr, [facility] [address] [address]- 0059 March, [facility] [address] [address]- 3429 Feb, [facility] [address] [address]- 3313 Feb, [facility] [address] 4314 Jan, [facility] [address] [address]- 0080 Jan, [facility] [address] [place] [address]- 4863 Jan, [facility] [address] [address]- 6568 Jan, [facility] [address] [place] [id number] [address]- 5966 Jan, [facility] [address], [place] [address]- 9625 Jan, [facility] [place] [facility] [address] [id number] [place] [address]- 7762 16 Jan, 2015 [facility] [place] [facility] [address] [id number] [place] [address]- 8611 16 Jan, 2015 [facility] [place] [facility] [address] [facility] [id number] [place] [address]- 6271 Jan, [facility] [place] [facility] [address] [id number] [place] [address]- 4845 Jan, [facility] [place] [facility] [address] [id number] [place] [address]- 3231 Jan, [facility] [place] [facility] [address] [id number] [place] [address]- 0186 Jan, [facility] [place] [facility] [address] [facility] [id number] [place] [address]- 6817 Dec, 2014 [facility] [place] [facility] [address] [facility] [id number] [place] [address]- 5615 Dec, 2014 [facility] [place] [facility] [address] [facility] [id number] [place] [address]- 6210 Dec, 2014 [facility] [place] [facility] [address] [facility] [id number] [place] [address]- 5889 Dec, 2014 [facility] [place] [facility] [address] [facility] [id number] [place] [address]- 3399 Dec, 2014 [facility] [place] [facility] [address] [facility] [id number] [place] [address]- 5945 Dec, 2014 [facility] [place] [facility] [address] [facility] [id number] [place] [address]- 4591 Dec, 2014 [facility] [place] [facility] [address] [facility] [id number] [place] [address]- 0139 Dec, 2014 [facility] [place] [facility] [address] [facility] [id number] [place] [address]- 6218 Nov, [facility] [place] [facility] [address] [id number] [place] [address]- 6838 Nov, [facility] [place] [facility] [address] [id number] [place] [address]- 7037 Nov, [facility] [place] [facility] [address] [id number] [place] [address]- 3149 Nov, [facility] [place] [facility] [address] [id number] [place] [address]- 4722 Nov, [facility] [place] [facility] [address] [id number] [place] [address]- 2021 Nov, [facility] [place] [facility] [address] [id number] [place] [address]- 3027 Nov, [facility] [place] [facility] [address] [id number] [place] [address]- 9237 Nov, [facility] [place] [facility] [address] [id number] [place] [address]- 0680 Oct, [facility] [place] [facility] [address] [id number] [place] [address]- 9463 Oct, [facility] [place] [facility] [address] [id number] [place] [address]- 7377 Sep, [facility] [place] [facility] [address] [facility] [id number] [place] [address]- 7046 Sep, [facility] [place] [facility] [address] [id number] [place] [address]- 8611 Sep, [facility] [place] [facility] [address] [id number] [place] [address]- 0604 Sep, [facility] [place] [facility] [address] [id number] [place] [address]- 4639 Aug, [facility] [place] [facility] [address] [id number] [place] [address]- 4266 Aug, [facility] [place] [facility] [address] [id number] [place] [address]- 9077 Aug, [facility] [place] [facility] [address] [id number] [place] [address]- 2539 Aug, [facility] [place] [facility] [address] [id number] [place] [address]- 2374 Aug, [facility] [place] [facility] [address] [id number] [place] [address]- 8893 Aug, [facility] [place] [facility] [address] [id number] [place] [address]- 7067 Aug, [facility] [place] [facility] [address] [id number] [place] [address]- 9831 Aug, [facility] [place] [facility] [address] [id number] [place] [address]- 8383 Jul, [facility] [place] [facility] [address] [id number] [place] [address]- 6285 Jul, [facility] [place] [facility] [address] [id number] [place] [address]- 3532 Jul, [facility] [place] [facility] [address] [id number] [place] [address]- 5441 Jul, [facility] [place] [facility] [address] [id number] [place] [address]- 3456 Jul, [facility] [place] [facility] [address] [id number], [place] [address]- 0598 Jun, [facility] [place] [facility] [address] [id number], [place] [address]- 9394 Jun, [facility] [place] [facility] [address] [id number] [place] [address]- 3277 Jun, [facility] [place] [facility] [address] [id number] [place] [address]- 7204 Jun, [facility] [place] [facility] [address] [id number] [place] [address]- 6259 Jun, [facility] [place] [facility] [address] [id number] [place] [address]- 4170 Jun, [facility] [place] [facility] [address] [id number] [place] [address]- 9612 May, [facility] [place] [facility] [address] [id number] [place] [address]- 0867 May, [facility] [place] [facility] [address] [id number] [place] [address]- 9290 May, [facility] [place] [facility] [address] [id number] [place] [address]- 3379 May, [facility] [place] [facility] [address] [id number] [place] [address]- 6152 Apr, [facility] [place] [facility] [address] [id number] [place] [address]- 5009 Apr, [facility] [place] [facility] [address] [id number] [place] [address]- 9126 Apr, [facility] [place] [facility] [address] [id number] [place] [address]- 9042 Apr, [facility] [place] [facility] [address] [id number] [place] [address]- 7066 Apr, [facility] [place] [facility] [address] [id number] [place] [address]- 9471 Apr, [facility] [place] [facility] [address] [id number] [place] [address]- 5448 March, [facility] [place] [facility] [address] [id number] [place] [address]- 4180 March, [facility] [place] [facility] [address] [id number] [place] [address]- 4407 March, [facility] [place] [facility] [address] [id number] [place] [address]- 5315 March, [facility] [place] [facility] [address] [id number] [place] [address]- 7113 Feb, [facility] [place] [facility] [address] [id number] [place] [address]- 9903 Feb, [facility] [place] [facility] [address] [id number] [place] [address]- 7610 Feb, [facility] [place] [facility] [address] [id number] [place] [address]- 7546 Feb, [facility] [place] [facility] [address] [id number] [place] [address]- 3898 Feb, [facility] [place] [facility] [address] [id number] [place] [address]- 7327 Feb, [facility] [place] [facility] [address] [id number] [place] [address]- 2602 Feb, [facility] [place] [facility] [address] [id number] [place] [address]- 1008 Feb, [facility] [place] [facility] [address] [id number] [place] [address]- 7367 Feb, [facility] [place] [facility] [address] [id number] [place] [address]- 1825 Feb, [facility] [place] [facility] [address] [id number] [place] [address]- 5753 Feb, [facility] [place] [facility] [address] [id number] [place] [address]- 3350 Feb, [facility] [place] [facility] [address] [id number] [place] [address]- 4299 Feb, [facility] [place] [facility] [address] [id number] [place] [address]- 8627 Feb, [facility] [place] [facility] [address] [id number] [place] [address]- 0162 Feb, [facility] [place] [facility] [address] [id number] [place] [address]- 4735 Feb, [facility] [place] [facility] [address] [id number] [place] [address]- 3176 Jan, [facility] [place] [facility] [address] [id number] [place] [address]- 8374 Jan, [facility] [place] [facility] [address] [id number] [place] [address]- 3326 Dec, [facility] [place] [facility] [address] [id number] [place] [address]- 4516 Dec, [facility] [place] [facility] [address] [id number] [place] [address]- 6963 Dec, [facility] [place] [facility] [address] [id number] [place] [address]- 3724 Dec, [facility] [place] [facility] [address] [id number] [place] [address]- 4669 Dec, [facility] [place] [facility] [address] [facility] [id number] [place] [address]- 4708 Dec, [facility] [place] [facility] [address] [facility] [id number] [place] [address]- 0281 Dec, [facility] [place] [facility] [address] [id number] [place] [address]- 3145 Nov, [facility] [place] [facility] [address] [facility] [id number] [place] [address]- 7357 Nov, [facility] [place] [facility] [address] [facility] [id number] [place] [address] Nov, [facility] [place] [facility] [address] [id number] [place] [address] Nov, [facility] [place] [facility] [address] [id number] [place] [address] Oct, [facility] [place] [facility] [address] [facility] [id number] [place] [address] Oct, [facility] [place] [facility] [address] [facility] [id number] [place] [address] Sep, [facility] [place] [facility] [address] [id number] [place] [address] Sep, [facility] [place] [facility] [address] [id number] [place] [address] Aug, [facility] [place] [facility] [address] [id number] [place] [address] Aug, [facility] [place] [facility] [address] [id number] [place] [address] Aug, [facility] [place] [facility] [address] [id number] [place] [address] Aug, [facility] [place] [facility] [address] [id number] [place] [address] Aug, [facility] [place] [facility] [address] [id number] [place] [address] Aug, [facility] [place] [facility] [address] [id number] [place] [address] Aug, [facility] [place] [facility] [address] [id number] [place] [address] Aug, [facility] [place] [facility] [address] [id number] [place] [address] Aug, [facility] [place] [facility] [address] [id number] [place] [address] Aug, [facility] [place] [facility] [address] [id number] [place] [address] Jun, [facility] [place] [facility] [address] [id number] [place] [address] Jun, [facility] [place] [facility] [address] [id number] [place] [address] May, [facility] [place] [facility] [address] [id number] [place] [address] Apr, [facility] [place] [facility] [address] [id number] [place] [address] Apr, [facility] [place] [facility] [address] [id number] [place] [address] March, [facility] [place] [facility] [address] [id number] [place] [address] Feb, [facility] [place] [facility] [address] [id number] [place] [address] Jan, [facility] [place] [facility] [address] [id number] [place] [address] Jan, [facility] [place] [facility] [address] [id number] [place] [address] Dec, [facility] [place] [facility] [address] [id number] [place] [address] Dec, [facility] [place] [facility] [address] [id number] [place] [address] Nov, [facility] [place] [facility] [address] [id number] [place] [address] Jul, [facility] [place] [facility] [address] [id number] [place] [address] Jul, [facility] [place] [facility] [address] [id number] [place] [address] Jun, [facility] [place] [facility] [address] [id number] [place] [address] May, [facility] [place] [facility] [address] [id number] [place] [address] May, [facility] [place] [facility] [address] [id number] [place] [address] May, [facility] [place] [facility] [address] [id number] [place] [address] May, [facility] [place] [facility] [address] [id number] [place] [address] May, [facility] [place] [facility] [address] [facility] [id number] [place] [address] May, [facility] [address] [facility] [id number], [place] [address] May, [facility] [address] [facility] [id number] [id number] Apr, [facility] [address] [facility] [id number], [place] [address] Apr, [facility] [address] [facility] [id number], [place] [address] Apr, [facility] [address] [facility] [id number], [place] [address] Apr, IMMUNIZATIONS No Known Immunizations SOCIAL HISTORY Never Assessed REASON FOR VISIT Controlled Med Refill 12/10/17 PLAN OF CARE VITAL SIGNS MEDICATIONS Medication Instructions Dosage Frequency Start Date End Date Duration Status Ambien 10 MG Orally Once a day 1 tablet at bedtime 24h May, 30 days Active Hydrocodone-Acetaminophen 10-325 MG Orally 4 times a day 1 tablet as needed for pain 6h Nov, 28 days Active RESULTS No Results PROCEDURES No Known procedures INSTRUCTIONS MEDICATIONS ADMINISTERED No Known Medications MEDICAL (GENERAL) HISTORY Type Description Date Medical History hypogonadism Medical History hyperlipidemia Medical History pre-diabetic Medical History chronic pain Medical History COPD Surgical History skin cancer 1999 Hospitalization History surgery Hospitalization History MRSA infection 05/2015
--- OUTSIDE RECORDS SUMMARY | 2018-10-30 16:59 | XMS REPORT ---
Author Author JOSÉ LUIS RODRÍGUEZ [facility] Address [address] [place] [address] Care Team Providers Care Paper Rewinder Operator Name Role Phone JOSÉ LUIS RODRÍGUEZ Unavailable PROBLEMS Type Condition ICD9-CM Code JEY70-EX Code Onset Dates Condition Status SNOMED Code Problem Umbilical hernia without mention of obstruction or gangrene 553.1 Active 805436528 Problem History of MRSA infection Z86.14 Active 239302932 Problem Family history of diabetes mellitus V18.0 Active 556946683 Problem Chronic obstructive pulmonary disease, unspecified COPD type J44.9 Active 32373584 Problem Chronic pain G89.29 Active 85418831 Problem Family history of diabetes mellitus Z83.3 Active 032792186 Problem Osteoarthritis M19.90 Active 597949609 Problem Hypertriglyceridemia E78.1 Active 792404893 Problem Hyperinsulinemia E16.1 Active 60841350 Problem Essential hypertension, benign 401.1 Active 9308102 Problem Family history of malignant neoplasm of gastrointestinal tract V16.0 Active 301610001 Problem Other chronic pain 338.29 Active 13451480 Problem Chronic airway obstruction, not elsewhere classified 496 Active 99390133 Problem Persistent disorder of initiating or maintaining sleep 307.42 Active 46689509 Problem Family history of malignant neoplasm, prostate V16.42 Active 213269795 Problem Generalized osteoarthrosis, 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.04 Active 52768692 ALLERGIES Unknown Allergies SOCIAL HISTORY No smoking Hx information available PLAN OF CARE VITAL SIGNS MEDICATIONS Medication Instructions Dosage Frequency Start Date End Date Duration Status Hydrocodone-Acetaminophen 10-325 MG Orally 4 times a day 1 tablet as needed for pain 6h 13 Oct, 2016 28 days Active RESULTS No Results PROCEDURES No Known procedures IMMUNIZATIONS No Known Immunizations
[2018-10-30] MEDS ORDERED: methylPREDNISolone 125 MG (Solu-MEDROL) VIAL IVP ONE (17:00)
[2018-10-30] MEDS ORDERED: cefTRIAXone FOR IV USE 2,000 MG in NS (IVPB) 50 ML IV ONE (17:00)
[2018-10-30] MEDS ORDERED: AZITHROMYCIN INJECTION 500 MG in NS (IVPB) 250 ML IV ONE (17:00)
[2018-10-30] MEDS ORDERED: RT-ALBUTEROL/IPRATROPIUM 3 ML (DUONEB) VIAL INH ONE (17:00)
--- OUTSIDE RECORDS SUMMARY | 2018-10-30 17:00 | XMS REPORT ---
Author Author JOSÉ LUIS RODRÍGUEZ Organization [facility] Address [address] [place] [address] Care Team Providers Care Manager [employer] Name Role Phone JOSÉ LUIS RODRÍGUEZ Unavailable PROBLEMS Type Condition ICD9-CM Code CVA22-CG Code Onset Dates Condition Status SNOMED Code Problem Chronic pain G89.29 Active 05636822 Problem Family history of diabetes mellitus Z83.3 Active 702152526 Problem Hypertriglyceridemia E78.1 Active 496316760 Problem History of MRSA infection Z86.14 Active 988714173 Problem Insomnia, unspecified type G47.00 Active 384722894 Problem Primary insomnia F51.01 Active 8474364 Problem Osteoarthritis M19.90 Active 849971887 Problem Hyperinsulinemia E16.1 Active 18404718 Problem Essential hypertension I10 Active 78316576 Problem Chronic obstructive pulmonary disease, unspecified COPD type J44.9 Active 99146312 ALLERGIES No Information ENCOUNTERS Encounter Location Date Diagnosis [place] [id number] [place] [address] 14694- 9043 Apr, [facility] [id number] [place] [address] 01315- 0489 Feb, Chronic pain G89.29 [facility] [id number] [place] [address] 08009- 8066 Feb, Chronic pain G89.29 [facility] [id number] [place] [address] 49040- 2170 Jan, Chronic pain G89.29 [facility] [id number] [place] [address] 25999- 3925 Dec, Chronic pain G89.29 [facility] [id number] [place] [address] 67204- 0034 Nov, Chronic pain G89.29 and Insomnia, unspecified type G47.00 [facility] [address] [address]- 3260 Oct, Insomnia, unspecified type G47.00 ; Chronic pain G89.29 and Colon cancer screening Z12.11 [facility] [address] [address]- 5270 Oct, Chronic pain G89.29 [facility] [id number] [place] [address] 54687- 0025 Sep, Chronic pain G89.29 and Insomnia, unspecified type G47.00 [place] [id number] [place] [address] 47720- 6992 Sep, Chronic pain G89.29 [place] [id number] [place] [address] 18043- 0564 Sep, [facility] [id number] [place] [address] 05954- 8944 Aug, Medicare welcome exam Z00.00 ; Encounter for immunization Z23 ; Colon cancer screening Z12.11 and Encounter for screening for lung cancer Z12.2 [place] [id number] [place] [address] 78474- 6174 Aug, [place] [id number] [place] [address] 70567- 4751 Aug, Chronic pain G89.29 and Insomnia, unspecified type G47.00 [facility] [address], [place] [address]- 6617 Aug, Hypertriglyceridemia E78.1 [place] [id number] [place] [address] 34647- 3122 Jul, Chronic pain G89.29 and Insomnia, unspecified type G47.00 [facility] [address], [place] [address]- 3236 Jun, Hypertriglyceridemia E78.1 [facility] [id number] [place] [address] 04068- 5812 Jun, Chronic pain G89.29 and Insomnia, unspecified type G47.00 [facility] [id number] [place] [address] 09753- 0611 Jun, [facility] [id number] [place] [address] 74487- 6969 Jun, [facility] [id number] [place] [address] 26030- 1551 May, Hyperinsulinemia E16.1 ; Chronic pain G89.29 ; Insomnia, unspecified type G47.00 and Rash R21 [place] [id number] [place] [address] 54212- 1333 May, Chronic pain G89.29 [facility] [id number] [place] [address] 73750- 3421 May, Hypertriglyceridemia E78.1 [facility] [id number] [place] [address] 57611- 5177 Apr, Chronic pain G89.29 [facility] [id number] [place] [address] 02039- 4658 Apr, Chronic pain G89.29 ; Hyperinsulinemia E16.1 ; Hypertriglyceridemia E78.1 and Primary insomnia F51.01 [place] [id number] [place] [address] 65190- 9767 March, Chronic pain G89.29 [facility] [id number] [place] [address] 21481- 0139 March, Chronic pain G89.29 [facility] [id number] [place] [address] 34589- 0235 Feb, [facility] [id number] [place] [address] 55583- 8006 Feb, Chronic pain G89.29 [facility] [id number] [place] [address] 17207- 2229 Jan, Chronic pain G89.29 [facility] [id number] [place] [address] 11970- 4585 Dec, Chronic pain G89.29 [facility] [id number] [place] [address] 10632- 3646 Dec, [facility] [id number] [place] [address] 75093- 4714 Nov, Hypertriglyceridemia E78.1 [facility] [id number] [place] [address] 85230- 5814 Nov, [facility] [id number] [place] [address] 50981- 3970 Nov, Chronic pain G89.29 ; Hypertriglyceridemia E78.1 and Chronic obstructive pulmonary disease, unspecified COPD type J44.9 [facility] [id number] [place] [address] 48189- 7776 Nov, Chronic pain G89.29 [facility] [id number] [place] [address] 80137- 6100 Oct, Chronic pain G89.29 [facility] [id number] [place] [address] 12128- 0323 Oct, [facility] [id number] [place] [address] 30598- 0509 Sep, Chronic obstructive pulmonary disease, unspecified COPD type J44.9 and Abscess L02.91 [facility] [id number] [place] [address] 05557- 9033 Sep, Chronic pain G89.29 [facility] [id number] [place] [address] 63996- 5943 Aug, Chronic pain G89.29 [facility] [id number] [place] [address] 29753- 8648 Aug, Chronic pain G89.29 [facility] [id number] [place] [address] 59107- 7542 Aug, Cutaneous horn L85.8 and Skin tag L91.8 [facility] [address] 53597- 2068 Jul, [facility] [id number] [place] [address] 82796- 4593 09 Jul, 2016 Hypertriglyceridemia E78.1 [facility] [address] 53093- 0525 07 Jul, 2016 Other chronic pain G89.29 ; Essential hypertension I10 ; Hyperinsulinemia E16.1 ; Hyperlipidemia, unspecified hyperlipidemia type E78.5 and Cutaneous horn L85.8 [facility] [id number] [place] [address] 96497- 1748 Jun, Chronic pain G89.29 [facility] [address] 25599- 0223 May, Chronic pain G89.29 [facility] [id number] [place] [address] 45829- 5667 May, [facility] [address] 91412- 0691 May, Skin infection L08.9 [facility] [id number] [place] [address] 83579- 0157 Apr, Chronic pain G89.29 [facility] [id number] [place] [address] 68155- 5009 Apr, [facility] [id number] [place] [address] 40047- 1286 Apr, Chronic pain G89.29 [facility] [id number] [place] [address] 64052- 3418 March, [facility] [id number] [place] [address] 08157- 8190 Feb, Chronic pain G89.29 ; Hyperinsulinemia E16.1 and Hypertriglyceridemia E78.1 [facility] [id number] [place] [address] 15048- 0703 Feb, [facility] [address] 52836- 2485 Jan, [facility] [address] 58210- 4767 Dec, [facility] [address] 57180- 9997 Nov, [facility] [address] 68782- 7545 Oct, [facility] [address] 99773- 2962 Oct, Hyperinsulinemia E16.1 [facility] [address] 33203- 1873 Oct, Other chronic pain G89.29 ; Chronic obstructive pulmonary disease, unspecified COPD type J44.9 ; Insomnia, unspecified type G47.00 ; Hyperinsulinemia E16.1 and Essential hypertension I10 [facility] [address] 80095- 3755 Sep, [facility] [id number] [place] [address] 01647- 4313 Aug, [facility] [address] 39673- 1342 30 Jul, 2015 [facility] [address] 88022- 9826 Jul, [facility] [address] 68043- 9188 Jul, Overweight 278.02 and Hyperinsulinemia 251.1 [facility] [address] 55568- 0460 03 Jul, 2015 [facility] [address] 28851- 8033 Jun, Skin tags, multiple acquired 701.9 [facility] [id number] [place] [address] 98469- 7032 Jun, Other chronic pain 338.29 ; Erectile dysfunction 607.84 ; Hyperinsulinemia 251.1 and Hypertension 401.9 [facility] [id number] [place] [address] 23543- 7010 Jun, [facility] [id number] [place] [address] 03817- 3994 Jun, [facility] [id number] [place] [address] 39742- 8885 Jun, [facility] [id number] [place] [address] 72313- 4615 May, Pure hyperglyceridemia 272.1 [facility] [address] 12824- 6534 May, Pure hyperglyceridemia 272.1 [facility] [id number] [place] [address] 26932- 2468 May, [facility] [id number] [place] [address] 65003- 2452 May, Overgrown toenails 703.8 ; Seborrheic keratosis 702.19 ; Skin tag 701.9 ; Warts, genital 078.11 ; Cramps, extremity 729.82 ; Increased appetite 783.6 and Heat rash 705.1 [facility] [id number] [place] [address] 43436- 2367 May, [facility] [address] 65868- 9040 Apr, [facility] [id number] [place] [address] 85306- 4055 Apr, [facility] [id number] [place] [address] 39443- 4071 March, [facility] [place] [facility] [address] [id number] [place] [address]- 2154 14 Feb, 2015 [facility] [place] [facility] [address] [id number] [place] [address]- 0408 13 Feb, 2015 [facility] [place] [facility] [address] [id number] [place] [address]- 4238 27 Jan, 2015 [facility] [place] [facility] [address] [id number] [place] [address]- 6794 27 Jan, 2015 [facility] [place] [facility] [address] [id number] [place] [address]- 2767 27 Jan, 2015 [facility] [place] [facility] [address] [id number] [place] [address]- 1230 27 Jan, 2015 [facility] [place] [facility] [address] [id number] [place] [address]- 8795 Jan, [facility] [place] [facility] [address] [id number] [place] [address]- 3100 Jan, [facility] [place] [facility] [address] [id number] [place] [address]- 0659 16 Jan, 2015 [facility] [place] [facility] [address] [id number] [place] [address]- 6677 16 Jan, 2015 [facility] [place] [facility] [address] [id number] [place] [address]- 0059 10 Jan, 2015 [facility] [place] [facility] [address] [id number] [place] [address]- 4268 10 Jan, 2015 [facility] [place] [facility] [address] [id number] [place] [address]- 5107 05 Jan, 2015 [facility] [place] [facility] [address] [id number] [place] 4527 05 Jan, 2015 [facility] [place] [facility] [address] [id number] [place] [address]- 8444 19 Dec, 2014 [facility] [place] [facility] [address] [id number] [place] [address]- 4512 Dec, 2014 [facility] [place] [facility] [address] [id number] [place] [address]- 6976 Dec, 2014 [facility] [place] [facility] [address] [id number] [place] [address]- 2996 Dec, 2014 [facility] [place] [facility] [address] [id number] [place] [address]- 8026 Dec, 2014 [facility] [place] [facility] [address] [id number] [place] [address]- 2927 Dec, 2014 [facility] [place] [facility] [address] [id number] [place] [address]- 5949 Dec, 2014 [facility] [place] [facility] [address] [id number] [place] [address]- 3774 Dec, 2014 [facility] [place] [facility] [address] [id number] [place] [address]- 7427 Nov, [facility] [place] [facility] [address] [id number] [place] [address]- 9361 Nov, [facility] [place] [facility] [address] [id number] [place] [address]- 5208 Nov, [facility] [place] [facility] [address] [facility] [id number] [place] [address]- 3538 Nov, [facility] [place] [facility] [address] [id number] [place] [address]- 3236 Nov, [facility] [place] [facility] [address] [id number], [place] [address]- 8551 Nov, [facility] [place] [facility] [address] [id number] [place] [address]- 1668 Nov, [facility] [place] [facility] [address] [id number] [place] [address]- 1686 Nov, [facility] [place] [facility] [address] [id number] [place] [address]- 9913 Oct, [facility] [place] [facility] [address] [id number] [place] [address]- 2210 Oct, [facility] [place] [facility] [address] [id number] [place] [address]- 2367 Sep, [facility] [place] [facility] [address] [id number] [place] [address]- 4446 Sep, [facility] [place] [facility] [address] [id number] [place] [address]- 3579 Sep, [facility] [place] [facility] [address] [id number] [place] [address]- 6525 Sep, [facility] [place] [facility] [address] [id number] [place] [address]- 9583 Aug, [facility] [place] [facility] [address] [id number] [place] [address]- 8751 Aug, [facility] [place] [facility] [address] [id number], [place] [address]- 9563 Aug, [facility] [place] [facility] [address] [id number] [place] [address]- 1571 Aug, [facility] [place] [facility] [address] [id number], [place] [address]- 1895 Aug, [facility] [place] [facility] [address] [id number], [place] [address]- 4917 Aug, [facility] [place] [facility] [address] [id number], [place] [address]- 6030 Aug, [facility] [place] [facility] [address] [id number], [place] [address]- 8196 Aug, [facility] [place] [facility] [address] [id number], [place] [address]- 4896 Jul, [facility] [place] [facility] [address] [id number], [place] [address]- 0522 17 Jul, 2014 [facility] [place] [facility] [address] [id number], [place] [address]- 3184 Jul, [facility] [place] [facility] [address] [id number] [place] [address]- 6907 Jul, [facility] [place] [facility] [address] [id number] [place] [address]- 0565 Jul, [facility] [place] [facility] [address] [id number] [place] [address]- 0202 Jun, [facility] [place] [facility] [address] [id number] [place] [address]- 9668 Jun, [facility] [place] [facility] [address] [id number] [place] [address]- 7187 Jun, [facility] [place] [facility] [address] [id number] [place] [address]- 3128 Jun, [facility] [place] [facility] [address] [id number] [place] [address]- 0048 Jun, [facility] [place] [facility] [address] [id number] [place] [address]- 3151 Jun, [facility] [place] [facility] [address] [id number] [place] [address]- 8687 May, [facility] [place] [facility] [address] [id number] [place] [address]- 4090 May, [facility] [place] [facility] [address] [id number] [place] [address]- 7120 May, [facility] [place] [facility] [address] [id number] [place] [address]- 0361 May, [facility] [place] [facility] [address] [id number] [place] [address]- 2715 Apr, [facility] [place] [facility] [address] [id number] [place] [address]- 4717 Apr, [facility] [place] [facility] [address] [id number] [place] [address]- 3396 Apr, [facility] [place] [facility] [address] [id number] [place] [address]- 6615 Apr, [facility] [place] [facility] [address] [id number] [place] [address]- 5509 Apr, [facility] [place] [facility] [address] [id number] [place] [address]- 9440 Apr, [facility] [place] [facility] [address] [id number] [place] [address]- 2792 March, [facility] [place] [facility] [address] [id number] [place] [address]- 5021 March, [facility] [place] [facility] [address] [id number] [place] [address]- 6251 March, [facility] [place] [facility] [address] [id number] [place] [address]- 1541 March, [facility] [place] [facility] [address] [id number] [place] [address]- 6165 Feb, [facility] [place] [facility] [address] [id number] [place] [address]- 4994 Feb, [facility] [place] [facility] [address] [id number] [place] [address]- 2466 Feb, [facility] [place] [facility] [address] [id number] [place] [address]- 1376 Feb, [facility] [place] [facility] [address] [id number] [place] [address]- 3228 Feb, [facility] [place] [facility] [address] [id number] [place] [address]- 0275 Feb, [facility] [place] [facility] [address] [id number] [place] [address]- 0637 Feb, [facility] [place] [facility] [address] [id number] [place] [address]- 4283 Feb, [facility] [place] [facility] [address] [id number] [place] [address]- 2149 Feb, [facility] [place] [facility] [address] [id number] [place] [address]- 3027 Feb, [facility] [place] [facility] [address] [id number] [place] [address]- 7804 Feb, [facility] [place] [facility] [address] [id number] [place] [address]- 7061 Feb, [facility] [place] [facility] [address] [id number] [place] [address]- 3879 Feb, [facility] [place] [facility] [address] [id number] [place] [address]- 2595 Feb, [facility] [place] [facility] [address] [id number] [place] [address]- 5776 Feb, [facility] [place] [facility] [address] [id number] [place] [address]- 1527 Feb, [facility] [place] [facility] [address] [id number] [place] [address]- 6375 Jan, [facility] [place] [facility] [address] [id number] [place] [address]- 3424 Jan, [facility] [place] [facility] [address] [id number] [place] [address]- 0705 Dec, [facility] [place] [facility] [address] [id number] [place] [address]- 7086 Dec, [facility] [place] [facility] [address] [id number] [place] [address]- 5880 Dec, [facility] [place] [facility] [address] [id number] [place] [address]- 9955 Dec, [facility] [place] [facility] [address] [id number] [place] [address]- 0654 Dec, [facility] [place] [facility] [address] [id number] [place] [address]- 7583 Dec, [facility] [place] [facility] [address] [id number] [place] [address]- 2847 Dec, [facility] [place] [facility] [address] [id number] [place] [address]- 0605 Nov, [facility] [place] [facility] [address] [id number] [place] [address]- 6156 Nov, [facility] [place] [facility] [address] [id number] [place] [address]- 6047 Nov, [facility] [place] [facility] [address] [id number] [place] [address]- 5454 Nov, [facility] [place] [facility] [address] [id number] [place] [address] Oct, [facility] [place] [facility] [address] [id number] [place] [address] Oct, [facility] [place] [facility] [address] [id number] [place] [address] Sep, [facility] [place] [facility] [address] [id number] [place] [address] Sep, [facility] [place] [facility] [address] [id number] [place] [address] Aug, [facility] [place] [facility] [address] [id number] [place] [address] Aug, [facility] [place] [facility] [address] [id number] [place] [address] Aug, [facility] [place] [facility] [address] [id number] [place] [address] Aug, [facility] [place] [facility] [address] [id number] [place] [address] Aug, [facility] [place] [facility] [address] [id number] [place] [address] Aug, [facility] [place] [facility] [address] [id number] [place] [address] 15 Aug, 2013 [facility] [place] [facility] [address] [id number] [place] [address] 15 Aug, 2013 [facility] [place] [facility] [address] [id number] [place] [address] 07 Aug, 2013 [facility] [place] [facility] [address] [id number] [place] [address] Aug, [facility] [place] [facility] [address] [id number] [place] [address] Jun, [facility] [place] [facility] [address] [id number] [place] [address] Jun, [facility] [place] [facility] [address] [id number] [place] [address] May, [facility] [place] [facility] [address] [facility] [id number] [place] [address] Apr, [facility] [place] [facility] [address] [id number], [place] [address] Apr, [facility] [place] [facility] [address] [id number] [place] [address] March, [facility] [place] [facility] [address] [id number], [place] [address] Feb, [facility] [place] [facility] [address] [id number], [place] [address] Jan, [facility] [place] [facility] [address] [id number], [place] [address] Jan, [facility] [place] [facility] [address] [id number] [place] [address] Dec, [facility] [place] [facility] [address] [id number], [place] [address] Dec, [facility] [place] [facility] [address] [id number] [place] [address] Nov, [facility] [place] [facility] [id number], [place] [address] Jul, [facility] [id number], [place] [address] Jul, [facility] [id number], [place] [address] Jun, [facility] [id number], [place] [address] May, [facility] [id number], [place] [address] May, [facility] [id number] [address] [address] May, [facility] [id number] May, [facility] [id number] [address] May, [facility] [id number], [place] [address] May, [facility] [id number] May, [facility] [id number], [place] [address] Apr, [facility] [id number], [place] [address] Apr, [facility] [address] [id number], [place] [address] Apr, [facility] [address] [id number] [address] [address] Apr, IMMUNIZATIONS No Known Immunizations SOCIAL HISTORY Never Assessed REASON FOR VISIT Controlled Med Refill 08/20/2017 PLAN OF CARE VITAL SIGNS MEDICATIONS Medication Instructions Dosage Frequency Start Date End Date Duration Status Ambien 5 MG Orally Once a day 0.5 - 1 tablet at bedtime 24h May, 28 days Active Hydrocodone-Acetaminophen 10-325 MG Orally 4 times a day 1 tablet as needed for pain 6h 20 Jul, 2017 28 days Active RESULTS No Results PROCEDURES No Known procedures INSTRUCTIONS MEDICATIONS ADMINISTERED No Known Medications MEDICAL (GENERAL) HISTORY Type Description Date Medical History hypogonadism Medical History hyperlipidemia Medical History pre-diabetic Medical History chronic pain Medical History COPD Surgical History skin cancer 1999 Hospitalization History surgery Hospitalization History MRSA infection 05/2015
--- OUTSIDE RECORDS SUMMARY | 2018-10-30 17:02 | XMS REPORT ---
Author Author JOSÉ LUIS RODRÍGUEZ Organization [facility] Address [address] [place] [address] Care Team Providers Care Denier Control Operator Name Role Phone JOSÉ LUIS RODRÍGUEZ Unavailable PROBLEMS Type Condition ICD9-CM Code DXU16-PO Code Onset Dates Condition Status SNOMED Code Problem Chronic pain G89.29 Active 69181872 Problem Family history of diabetes mellitus Z83.3 Active 928114890 Problem Hypertriglyceridemia E78.1 Active 443879112 Problem History of MRSA infection Z86.14 Active 142397604 Problem Insomnia, unspecified type G47.00 Active 917098221 Problem Primary insomnia F51.01 Active 6146444 Problem Osteoarthritis M19.90 Active 096251080 Problem Hyperinsulinemia E16.1 Active 01412262 Problem Essential hypertension I10 Active 31963905 Problem Chronic obstructive pulmonary disease, unspecified COPD type J44.9 Active 00003353 ALLERGIES No Known Allergies ENCOUNTERS Encounter Location Date Diagnosis [place] [address] [address] 04 Feb, 2018 Chronic pain G89.29 [place] [address] [place] [id number] [place] [address] 98942- 7989 Jan, Chronic pain G89.29 [place] [address] [place] [id number] [place] [address] 40133- 6405 Dec, Chronic pain G89.29 [place] [address] 40338- 7960 Nov, Chronic pain G89.29 and Insomnia, unspecified type G47.00 [place] [address] [place] [id number] [place] [address] 20263- 0792 Oct, Insomnia, unspecified type G47.00 ; Chronic pain G89.29 and Colon cancer screening Z12.11 [place] [id number] [address] 6323 Oct, Chronic pain G89.29 [place] [address] [place] [id number] [place] [address] 50079- 0136 Sep, Chronic pain G89.29 and Insomnia, unspecified type G47.00 [place] [id number] [place] [address] 42224- 2770 Sep, Chronic pain G89.29 [place] [address] [place] [id number] [place] [address] 61866- 4187 Sep, [place] [address] [place] [id number] [place] [address] 93509- 9859 Aug, Medicare welcome exam Z00.00 ; Encounter for immunization Z23 ; Colon cancer screening Z12.11 and Encounter for screening for lung cancer Z12.2 [place] [address] [place] [id number] [place] [address] 29551- 1150 Aug, [place] [address] [place] [id number] [place] [address] 15884- 7969 Aug, Chronic pain G89.29 and Insomnia, unspecified type G47.00 [place] [id number] [place] [address] 13703- 8569 Aug, Hypertriglyceridemia E78.1 [place] [id number] [address] 1376 Jul, Chronic pain G89.29 and Insomnia, unspecified type G47.00 [place] [id number] [address]- 5349 Jun, Hypertriglyceridemia E78.1 [place] [id number] [place] [address] 65221- 7691 Jun, Chronic pain G89.29 and Insomnia, unspecified type G47.00 [place] [address], [place] [address]- 9184 Jun, [facility] [address] [place] [id number] [place] [address] 82123- 3600 Jun, [facility] [address] [place] [id number] [place] [address] 39172- 1603 May, Hyperinsulinemia E16.1 ; Chronic pain G89.29 ; Insomnia, unspecified type G47.00 and Rash R21 [facility] [address] 59108- 7990 May, Chronic pain G89.29 [facility] [address] [place] [id number] [place] [address] 64212- 5782 May, Hypertriglyceridemia E78.1 [facility] [address] [place] [id number] [place] [address] 63190- 5389 Apr, Chronic pain G89.29 [facility] [address] [place] [id number] [place] [address] 93372- 4406 Apr, Chronic pain G89.29 ; Hyperinsulinemia E16.1 ; Hypertriglyceridemia E78.1 and Primary insomnia F51.01 [facility] [address] [place] [id number] [place] [address] 05354- 3944 March, Chronic pain G89.29 [facility] [address] [place] [id number] [place] [address] 28888- 5061 March, Chronic pain G89.29 [facility] [address] [place] [id number] [place] [address] 78915- 4750 Feb, [facility] [address] [place] [id number] [place] [address] 94789- 5577 Feb, Chronic pain G89.29 [facility] [address] [place] [id number] [place] [address] 69904- 5701 Jan, Chronic pain G89.29 [facility] [address] [place] [id number] [place] [address] 68448- 9377 Dec, Chronic pain G89.29 [facility] [address] [place] [address]- 1528 Dec, [facility] [address] [place] [id number] [place] [address] 71069- 6575 Nov, Hypertriglyceridemia E78.1 [facility] [address] [place] [id number] [place] [address] 30351- 7912 Nov, [facility] [address] 38335- 9281 Nov, Chronic pain G89.29 ; Hypertriglyceridemia E78.1 and Chronic obstructive pulmonary disease, unspecified COPD type J44.9 [facility] [address] 32789- 0903 Nov, Chronic pain G89.29 [facility] [address] 45421- 0971 Oct, Chronic pain G89.29 [facility] [address] 96396- 9186 Oct, [facility] [address] [place] [id number] [place] [address] 42771- 9158 Sep, Chronic obstructive pulmonary disease, unspecified COPD type J44.9 and Abscess L02.91 [facility] [address] [place] [id number] [place] [address] 57443- 2914 16 Sep, 2016 Chronic pain G89.29 [facility] [address] [place] [id number] [place] [address] 27546- 9165 Aug, Chronic pain G89.29 [facility] [address] [place] [id number] [place] [address] 23369- 9302 Aug, Chronic pain G89.29 [facility] [address] 85332- 7273 Aug, Cutaneous horn L85.8 and Skin tag L91.8 [facility] [address] [place] [id number] [place] [address] 07468- 5975 Jul, [facility] [address] [place] [id number] [place] [address] 00033- 1411 Jul, Hypertriglyceridemia E78.1 [facility] [address] [place] [id number] [place] [address] 29583- 1344 07 Jul, 2016 Other chronic pain G89.29 ; Essential hypertension I10 ; Hyperinsulinemia E16.1 ; Hyperlipidemia, unspecified hyperlipidemia type E78.5 and Cutaneous horn L85.8 [facility] [address] [place] [id number] [place] [address] 70126- 5715 Jun, Chronic pain G89.29 [facility] [address] [place] [id number] [place] [address] 15766- 3533 May, Chronic pain G89.29 [facility] [address] [place] [id number] [place] [address] 24527- 7870 May, [facility] [address] 45991- 2476 May, Skin infection L08.9 [facility] [address] [place] [id number] [place] [address] 28194- 5147 Apr, Chronic pain G89.29 [facility] [address] [place] [id number] [place] [address] 20358- 1267 Apr, [facility] [address] [place] [id number] [place] [address] 16709- 7284 Apr, Chronic pain G89.29 [facility] [address] [place] [id number] [place] [address] 11709- 8312 March, [facility] [address] [place] [id number] [place] [address] 42636- 2176 Feb, Chronic pain G89.29 ; Hyperinsulinemia E16.1 and Hypertriglyceridemia E78.1 [facility] [address] [place] [id number] [place] [address] 18597- 9584 Feb, [facility] [address] [place] [id number] [place] [address] 53403- 1862 Jan, [facility] [address] [place] [id number] [place] [address] 03152- 4303 Dec, [facility] [address] [place] [id number] [place] [address] 02145- 0795 Nov, [facility] [address] [place] [id number] [place] [address] 86878- 0479 Oct, [facility] [address] 51020- 3392 Oct, Hyperinsulinemia E16.1 [facility] [address] 05199- 4709 Oct, Other chronic pain G89.29 ; Chronic obstructive pulmonary disease, unspecified COPD type J44.9 ; Insomnia, unspecified type G47.00 ; Hyperinsulinemia E16.1 and Essential hypertension I10 [facility] [address] 66766- 4288 Sep, [facility] [address] [place] [id number] [place] [address] 57664- 3574 Aug, [facility] [address] 76787- 9089 30 Jul, 2015 [facility] [address] [place] [id number] [place] [address] 55254- 7384 Jul, [facility] [address] [place] [id number] [place] [address] 75415- 1173 Jul, Overweight 278.02 and Hyperinsulinemia 251.1 [facility] [address] [place] [id number] [place] [address] 45489- 0663 Jul, [facility] [address] 81609- 2754 Jun, Skin tags, multiple acquired 701.9 [facility] [address] [place] [id number] [place] [address] 49584- 2438 Jun, Other chronic pain 338.29 ; Erectile dysfunction 607.84 ; Hyperinsulinemia 251.1 and Hypertension 401.9 [facility] [address] [place] [id number] [place] [address] 31465- 5903 Jun, [facility] [address] [place] [id number] [place] [address] 39793- 5939 Jun, [facility] [address] [place] [id number] [place] [address] 09996- 3305 Jun, [facility] [address] 16966- 0407 May, Pure hyperglyceridemia 272.1 [facility] [address] [place] [id number] [place] [address] 63457- 0887 May, Pure hyperglyceridemia 272.1 [facility] [address] [place] [id number] [place] [address] 16772- 0278 May, [facility] [address] 02640- 1105 May, Overgrown toenails 703.8 ; Seborrheic keratosis 702.19 ; Skin tag 701.9 ; Warts, genital 078.11 ; Cramps, extremity 729.82 ; Increased appetite 783.6 and Heat rash 705.1 [facility] [address] [place] [id number] [place] [address] 20106- 8193 May, [facility] [address] [place] [id number] [place] [address] 59086- 8982 Apr, [facility] [address] [place] [id number] [place] [address] 16360- 5847 Apr, [facility] [address] [place] [id number] [place] [address] 67984- 7327 March, [facility] [address] [place] [id number] [place] [address] 44335- 3891 Feb, [facility] [address] [place] [id number] [place] [address] 62380- 0468 Feb, [facility] [place] [facility] [address] [id number] [place] [address]- 2763 27 Jan, 2015 [facility] [place] [facility] [address] [id number] [place] [address]- 8501 27 Jan, 2015 [facility] [place] [facility] [address] [id number] [place] [address]- 1040 27 Jan, 2015 [facility] [place] [facility] [address] [id number] [place] [address]- 7603 27 Jan, 2015 [facility] [place] [facility] [address] [id number] [place] [address]- 7286 Jan, [facility] [place] [facility] [address] [id number] [place] [address]- 7029 19 Jan, 2015 [facility] [place] [facility] [address] [id number] [place] [address]- 5663 16 Jan, 2015 [facility] [place] [facility] [address] [id number] [place] [address]- 3887 16 Jan, 2015 [facility] [place] [facility] [address] [id number] [place] [address]- 6847 10 Jan, 2015 [facility] [place] [facility] [address] [id number] [place] [address]- 5916 10 Jan, 2015 [facility] [place] [facility] [address] [id number] [place] [address]- 7768 05 Jan, 2015 [facility] [place] [facility] [address] [id number] [place] [address]- 3392 Jan, [facility] [place] [facility] [address] [id number] [place] [address]- 2296 Dec, [facility] [place] [facility] [address] [id number] [place] [address]- 0703 Dec, [facility] [place] [facility] [address] [id number] [place] [address]- 1952 Dec, [facility] [place] [facility] [address] [id number] [place] [address]- 7554 Dec, [facility] [place] [facility] [address] [id number] [place] [address]- 4149 Dec, [facility] [place] [facility] [address] [id number] [place] [address]- 7252 Dec, 2014 [facility] [place] [facility] [address] [id number] [place] [address]- 2216 Dec, [facility] [place] [facility] [address] [id number] [place] [address]- 3270 Dec, [facility] [place] [facility] [address] [id number] [place] [address]- 6808 Nov, [facility] [place] [facility] [address] [id number] [place] [address]- 5935 Nov, [facility] [place] [facility] [address] [id number] [place] [address]- 4277 Nov, [facility] [place] [facility] [address] [id number] [place] [address]- 8761 Nov, [facility] [place] [facility] [address] [id number] [place] [address]- 4282 Nov, [facility] [place] [facility] [address] [id number] [place] [address]- 0509 Nov, [facility] [place] [facility] [address] [id number] [place] [address]- 6450 Nov, [facility] [place] [facility] [address] [id number] [place] [address]- 2155 Nov, [facility] [place] [facility] [address] [id number] [place] [address]- 1491 Oct, [facility] [place] [facility] [address] [id number] [place] [address]- 6661 Oct, [facility] [place] [facility] [address] [id number], [place] [address]- 9743 Sep, [facility] [place] [facility] [address] [id number] [place] [address]- 1405 Sep, [facility] [place] [facility] [address] [id number] [place] [address]- 8044 Sep, [facility] [place] [facility] [address] [id number] [place] [address]- 1594 Sep, [facility] [place] [facility] [address] [id number] [place] [address]- 5408 Aug, [facility] [place] [facility] [address] [id number] [place] [address]- 8327 Aug, [facility] [place] [facility] [address] [id number] [place] [address]- 9947 Aug, [facility] [place] [facility] [address] [id number] [place] [address]- 2879 Aug, [facility] [place] [facility] [address] [id number] [place] [address]- 5646 Aug, [facility] [place] [facility] [address] [id number] [place] [address]- 6057 Aug, [facility] [place] [facility] [address] [id number] [place] [address]- 9766 Aug, [facility] [place] [facility] [address] [id number] [place] [address]- 0204 Aug, [facility] [place] [facility] [address] [id number] [place] [address]- 7363 25 Jul, 2014 [facility] [place] [facility] [address] [id number] [place] [address]- 1317 17 Jul, 2014 [facility] [place] [facility] [address] [id number] [place] [address]- 6339 17 Jul, 2014 [facility] [place] [facility] [address] [id number] [place] [address]- 5266 05 Sep2013 [facility] [place] [facility] [address] [id number] [place] [address]- 2660 Jul, [facility] [place] [facility] [address] [id number] [place] [address]- 2779 Jun, [facility] [place] [facility] [address] [id number] [place] [address]- 5763 Jun, [facility] [place] [facility] [address] [id number] [place] [address]- 1348 Jun, [facility] [place] [facility] [address] [id number] [place] [address]- 0496 Jun, [facility] [place] [facility] [address] [id number] [place] [address]- 6474 Jun, [facility] [place] [facility] [address] [id number] [place] [address]- 4514 Jun, [facility] [place] [facility] [address] [id number] [place] [address]- 8666 May, [facility] [place] [facility] [address] [id number] [place] [address]- 2094 May, [facility] [place] [facility] [address] [id number] [place] [address]- 2856 May, [facility] [place] [facility] [address] [id number] [place] [address]- 7147 May, [facility] [place] [facility] [address] [id number] [place] [address]- 3406 Apr, [facility] [place] [facility] [address] [id number] [place] [address]- 7992 Apr, [facility] [place] [facility] [address] [id number] [place] [address]- 0249 Apr, [facility] [place] [facility] [address] [id number] [place] [address]- 2655 Apr, [facility] [place] [facility] [address] [id number] [place] [address]- 5519 Apr, [facility] [place] [facility] [address] [id number] [place] [address]- 3416 Apr, [facility] [address] [id number] [place] [address]- 9202 March, [facility] [address] [id number] [place] [address]- 4628 March, [facility] [address] [id number] [place] [address]- 1649 March, [facility] [address] [id number] [place] [address]- 1669 March, [facility] [address] [id number] [place] [address]- 1465 Feb, [facility] [address] [id number] [place] [address]- 2578 Feb, [facility] [address] [id number] [place] [address]- 0288 Feb, [facility] [address] [id number] [place] [address]- 9936 Feb, [facility] [address] [id number] [place] [address]- 2347 Feb, [facility] [address] [id number] [place] [address]- 7711 Feb, [facility] [place] [facility] [address] [id number] [place] [address]- 8178 Feb, [facility] [address] [id number] [place] [address]- 3984 Feb, [facility] [place] [facility] [address] [id number] [place] [address]- 9781 Feb, [facility] [place] [facility] [address] [id number] [place] [address]- 0786 Feb, [facility] [place] [facility] [address] [id number] [place] [address]- 7567 Feb, [facility] [place] [facility] [address] [id number] [place] [address]- 1523 Feb, [facility] [place] [facility] [address] [id number] [place] [address]- 6782 Feb, [facility] [place] [facility] [address] [id number] [place] [address]- 2261 Feb, [facility] [place] [facility] [address] [id number] [place] [address]- 3360 Feb, [facility] [place] [facility] [address] [id number] [place] [address]- 7832 Feb, [facility] [place] [facility] [address] [id number] [place] [address]- 6100 Jan, [facility] [place] [facility] [address] [facility] [id number] [place] [address]- 0694 Jan, [facility] [place] [facility] [address] [id number] [place] [address]- 4345 Dec, [facility] [place] [facility] [address] [id number] [place] [address]- 9004 Dec, [facility] [place] [facility] [address] [facility] [id number] [place] [address]- 3223 Dec, [facility] [place] [facility] [address] [id number] [place] [address]- 3427 Dec, [facility] [place] [facility] [address] [id number], [place] [address]- 6082 Dec, [facility] [place] [facility] [address] [id number] [place] [address]- 6546 Dec, [facility] [place] [facility] [address] [id number] [place] [address]- 2528 Dec, [facility] [place] [facility] [address] [facility] [id number] [place] [address]- 4221 Nov, [facility] [place] [facility] [address] [id number] [place] [address]- 0887 Nov, [facility] [address] [id number] [place] [address]- 8893 Nov, [facility] [address] [id number] [place] [address]- 5494 Nov, [facility] [address] [id number] [place] [address]- 5262 Oct, [facility] [place] [facility] [address] [id number] [place] [address] Oct, [facility] [address] [id number] [place] [address] Sep, [facility] [place] [facility] [address] [id number] [place] [address] Sep, [facility] [address] [id number] [place] [address] Aug, [facility] [address] [id number] [place] [address] Aug, [facility] [address] [id number] [place] [address] Aug, [facility] [address] [id number] [place] [address] Aug, [facility] [place] [facility] [address] [id number] [place] [address] Aug, [facility] [place] [facility] [address] [id number] [place] [address] Aug, [facility] [place] [facility] [address] [id number] [place] [address] Aug, [facility] [place] [facility] [address] [id number] [place] [address] Aug, [facility] [place] [facility] [address] [id number] [place] [address] Aug, [facility] [place] [facility] [address] [id number] [place] [address] Aug, [facility] [place] [facility] [address] [id number] [place] [address] Jun, [facility] [place] [facility] [address] [id number] [place] [address] Jun, [facility] [place] [facility] [address] [id number] [place] [address] May, [facility] [address] [id number] [place] [address] Apr, [facility] [place] [facility] [address] [id number] [place] [address] Apr, [facility] [address] [id number] [place] [address] March, [facility] [place] [facility] [address] [id number] [place] [address] Feb, [facility] [place] [facility] [address] [id number] [place] [address] Jan, [facility] [place] [facility] [address] [id number], [place] [address] Jan, [facility] [place] [facility] [address] [id number][place] [address] Dec, [facility] [place] [facility] [address] [id number], [place] [address] Dec, [facility] [place] [facility] [address] [id number] [place] [address] Nov, [facility] [place] [facility] [address] [id number], [place] [address] Jul, [facility] [place] [facility] [address] [id number], [place] [address] Jul, [facility] [place] [facility] [address] [id number], [place] [address] Jun, [facility] [id number], [place] [address] May, [facility] [id number] [address] May, [facility] [id number], [place] [address] May, [facility] [id number] [place] [id number] May, [facility] [id number] [place] [address] May, [facility] [id number] [place] [address] May, [facility] [id number] [place] [address] May, [facility] [id number], [place] [address] Apr, [facility] [address], [place] [address] Apr, [facility] [address], [place] [address] Apr, [facility] [id number], [place] [address] Apr, IMMUNIZATIONS No Known Immunizations SOCIAL HISTORY Never Assessed REASON FOR VISIT Pain management (chronic)--ABoggsLPN PLAN OF CARE Activity Details Follow Up 3 Months Reason:hyperinsulin VITAL SIGNS Height 66 in 2017-06-25 Weight 237.4 lbs 2017-06-25 Temperature 97.7 degrees Fahrenheit 2017-06-25 Heart Rate 72 bpm 2017-06-25 Respiratory Rate 20 2017-06-25 BMI 38.31 kg/m2 2017-06-25 Blood pressure systolic 128 mmHg 2017-06-25 Blood pressure diastolic 82 mmHg 2017-06-25 MEDICATIONS Medication Instructions Dosage Frequency Start Date End Date Duration Status Symbicort 160-4.5 MCG/ACT INHALE TWO PUFFS BY MOUTH TWICE DAILY IN THE MORNING AND EVENING Active Oxygen N/A 1 1/2 l at hs Once a day as directed 24h Oct, Active Hydrocodone-Acetaminophen 10-325 MG Orally 4 times a day 1 tablet as needed for pain 6h May, Jun, 28 days Active Viagra 100 MG Orally Once a day prn 1 tablet as needed 10 Active Ambien 5 mg Orally Once a day 1/2 - 1 tablet at bedtime 24h May, 28 days Active Triamcinolone Acetonide 0.5 % Externally Twice a day 1 application to affected area 12h May, Active Lipitor 40 MG Orally Once a day 1 tablet 24h 90 days Active Zetia 10 MG Orally Once a day 1 tablet 24h Jul, 90 days Active RESULTS Name Result Date Reference Range A1C (IN HOUSE) 2017-06-25 A1C IN HOUSE 5.9 4.3 - 5.6 % Previous A1c 5.9 Lot [id number] Exp date 02/2019 PROCEDURES Procedure Date Ordered Result Body Site GLYCATED HEMOGLOBIN TEST June 25, 2017 INSTRUCTIONS MEDICATIONS ADMINISTERED No Known Medications MEDICAL (GENERAL) HISTORY Type Description Date Medical History hypogonadism Medical History hyperlipidemia Medical History pre-diabetic Medical History chronic pain Medical History COPD Surgical History skin cancer 1999 Hospitalization History surgery Hospitalization History MRSA infection 05/2015
--- OUTSIDE RECORDS SUMMARY | 2018-10-30 17:03 | XMS REPORT ---
Author NIXON Shirley [facility] [place] eClinicalWorks Address Unknown Phone Unavailable Care Team Providers Care Process Excellence Manager Name Role Phone NIXON RIGGS CP Unavailable [...] Z83.3 Active Problem Osteoarthritis M19.90 Active Assessment Skin tag L91.8 Active Problem Chronic airway obstruction, not elsewhere classified 496 Active Problem Family history of malignant neoplasm, prostate V16.42 Active Assessment Cutaneous horn L85.8 Active Problem Family history of malignant neoplasm of gastrointestinal tract V16.0 Active Problem Essential hypertension, benign 401.1 Active Problem Other chronic pain 338.29 Active Medications Medication Code System Code Instructions Start Date End Date Status Dosage Zetia [facility] [address]-39 10 mg Orally Once a day Aug 08, 2016 1 tablet Lipitor [facility] 98628457569 40 mg Orally Once a day 1 tablet Viagra [facility] 89054768833 100 MG Orally Once a day prn 1 tablet as needed Symbicort [facility] [id number] 160-4.5 MCG/ACT INHALE TWO PUFFS BY MOUTH TWICE DAILY IN THE MORNING AND EVENING Hydrocodone-Acetaminophen [facility] [address]-48 10-325 MG Orally 4 times a day February 15, 2015 1 tablet as needed for pain MetFORMIN HCl ER [facility] 67162273898 500 MG Orally twice a day 2 tablets Stiolto Respimat [facility] [address]-44 2.5-2.5 MCG/ACT Inhalation Once a day 2 samples given Nov 15, 2015 2 puffs Oxygen NDC 0 N/A 1 1/2 l at hs Once a day Nov 15, 2015 as directed Procedures Procedure Coding System Code Date Office Visit, Est Pt., Level 2 CPT-4 56650 Sep 09, 2016 REMOVAL OF SKIN TAGS CPT-4 51245 Sep 09, 2016 Vital Signs Date/Time: Sep 09, 2016 Cardiac Monitoring Heart Rate 76 bpm Weight 235 lbs Height 66 in BMI 37.93 Index Blood Pressure Diastolic 90 mmHg Blood Pressure Systolic 150 mmHg Results Name Result Date Reference Range Unit Abnormality Flag SKIN TAG REM 1-15 Summary Purpose eClinicalWorks Submission
--- OUTSIDE RECORDS SUMMARY | 2018-10-30 17:04 | XMS REPORT ---
Author Author JOSÉ LUIS RODRÍGUEZ [facility] eClinicalWorks Address Unknown Phone Unavailable Care Team Providers Care Corporate Tax Preparer Name Role Phone JOSÉ LUIS RODRÍGUEZ CP Unavailable Allergies No Known Allergies Problems Problem Type Condition ICD-9 Code Onset Dates Condition Status Problem Essential [...] sleep 307.42 Active Medications No Known Medications Results No Known Results Summary Purpose eClinicalWorks Submission
--- OUTSIDE RECORDS SUMMARY | 2018-10-30 17:04 | XMS REPORT ---
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 Name Role Phone JOSÉ LUIS RODRÍGUEZ Unavailable PROBLEMS Type Condition ICD9-CM Code URB93-OP Code Onset Dates Condition Status SNOMED Code Problem Chronic pain G89.29 Active 54041999 Problem Family history of diabetes mellitus Z83.3 Active 596603908 Problem Hypertriglyceridemia E78.1 Active 800504688 Problem History of MRSA infection Z86.14 Active 962543986 Problem Insomnia, unspecified type G47.00 Active 482006781 Problem Primary insomnia F51.01 Active 9912676 Problem Osteoarthritis M19.90 Active 457851905 Problem Hyperinsulinemia E16.1 Active 33622985 Problem Essential hypertension I10 Active 83728608 Problem Chronic obstructive pulmonary disease, unspecified COPD type J44.9 Active 69906987 ALLERGIES No Known Allergies ENCOUNTERS Encounter Location Date Diagnosis [place] [address] [address]- 39[address] Jan, Chronic pain G89.29 [place] [address] [place] [id number] [place] [address] 40168- 9412 Dec, Chronic pain G89.29 [place] [address] 58351- 9237 Nov, Chronic pain G89.29 and Insomnia, unspecified type G47.00 [place] [address] 91998- 1843 Oct, Insomnia, unspecified type G47.00 ; Chronic pain G89.29 and Colon cancer screening Z12.11 [place] [address] 75203- 0719 Oct, Chronic pain G89.29 [facility] [address] [address] Sep, Chronic pain G89.29 and Insomnia, unspecified type G47.00 [facility] [address] [place] [id number] [place] [address] 95139- 1066 Sep, Chronic pain G89.29 [facility] [address] [place] [id number] [place] [address] 12215- 4486 Sep, [facility] [address] [place] [id number] [place] [address] 50881- 3342 Aug, Medicare welcome exam Z00.00 ; Encounter for immunization Z23 ; Colon cancer screening Z12.11 and Encounter for screening for lung cancer Z12.2 [place] [address] [place] [id number] [place] [address] 18672- 3044 Aug, [place] [address] [place] [id number] [place] [address] 46213- 4771 Aug, Chronic pain G89.29 and Insomnia, unspecified type G47.00 [place] [address] [place] [id number] [place] [address] 01926- 5181 Aug, Hypertriglyceridemia E78.1 [place] [address] [place] [id number] [place] [address] 60630- 1836 Jul, Chronic pain G89.29 and Insomnia, unspecified type G47.00 [place] [address] [address] 2659 Jun, Hypertriglyceridemia E78.1 [facility] [id number] [place] [address] 48613- 5049 Jun, Chronic pain G89.29 and Insomnia, unspecified type G47.00 [facility] [address] [address]- 7701 Jun, [facility] [address] [place] [id number] [place] [address] 73796- 6691 Jun, [facility] [address] [place] [id number] [place] [address] 22057- 2097 May, Hyperinsulinemia E16.1 ; Chronic pain G89.29 ; Insomnia, unspecified type G47.00 and Rash R21 [facility] [address] [place] [id number] [place] [address] 30261- 6366 May, Chronic pain G89.29 [facility] [address] 99669- 3249 May, Hypertriglyceridemia E78.1 [facility] [address] 53280- 5321 Apr, Chronic pain G89.29 [facility] [address] 25525- 1001 Apr, Chronic pain G89.29 ; Hyperinsulinemia E16.1 ; Hypertriglyceridemia E78.1 and Primary insomnia F51.01 [facility] [address] 64377- 0381 March, Chronic pain G89.29 [facility] [address] 78413- 9260 March, Chronic pain G89.29 [facility] [address] [place] [id number] [place] [address] 89735- 4151 Feb, [facility] [address] [place] [id number] [place] [address] 90835- 9932 Feb, Chronic pain G89.29 [facility] [address] [place] [id number] [place] [address] 38011- 1176 Jan, Chronic pain G89.29 [facility] [address] 95894- 4585 Dec, Chronic pain G89.29 [facility] [address] [place] [id number] [place] [address] 86083- 1296 Dec, [facility] [address] 32940- 6099 Nov, Hypertriglyceridemia E78.1 [facility] [address] 06925- 7297 Nov, [facility] [address] 02777- 1201 Nov, Chronic pain G89.29 ; Hypertriglyceridemia E78.1 and Chronic obstructive pulmonary disease, unspecified COPD type J44.9 [facility] [address] 85649- 6807 Nov, Chronic pain G89.29 [place] [address] 36424- 5339 Oct, Chronic pain G89.29 [place] [address] 15293- 1389 Oct, [facility] [address] 84156- 5336 Sep, Chronic obstructive pulmonary disease, unspecified COPD type J44.9 and Abscess L02.91 [place] [address] 07558- 0027 Sep, Chronic pain G89.29 [place] [address] 09490- 4566 Aug, Chronic pain G89.29 [facility] [address] 97041- 4730 Aug, Chronic pain G89.29 [facility] [address] [place] [id number] [place] [address] 35200- 9674 Aug, Cutaneous horn L85.8 and Skin tag L91.8 [facility] [address] [place] [id number] [place] [address] 17067- 9628 Jul, [facility] [address] 75733- 0283 Jul, Hypertriglyceridemia E78.1 [facility] [address] [place] [id number] [place] [address] 81884- 8980 07 Jul, 2016 Other chronic pain G89.29 ; Essential hypertension I10 ; Hyperinsulinemia E16.1 ; Hyperlipidemia, unspecified hyperlipidemia type E78.5 and Cutaneous horn L85.8 [facility] [address] [place] [id number] [place] [address] 32317- 0711 Jun, Chronic pain G89.29 [facility] [address] 65948 2546 May, Chronic pain G89.29 [facility] [address] 32179- 0126 May, [facility] [address] [place] [id number] [place] [address] 92095- 2211 May, Skin infection L08.9 [facility] [address] 75617- 1574 Apr, Chronic pain G89.29 [facility] [address] [place] [id number] [place] [address] 18488- 9476 Apr, [facility] [address] [place] [id number] [place] [address] 67977- 3082 Apr, Chronic pain G89.29 [facility] [address] [place] [id number] [place] [address] 54664- 4396 March, [facility] [address] [place] [id number] [place] [address] 80408 2542 Feb, Chronic pain G89.29 ; Hyperinsulinemia E16.1 and Hypertriglyceridemia E78.1 [facility] [address] [place] [id number] [place] [address] 62013- 0931 Feb, [facility] [address] [place] [id number] [place] [address] 13069- 8968 Jan, [facility] [address] [place] [id number] [place] [address] 20608- 0819 Dec, [facility] [address] [place] [id number] [place] [address] 06792- 1190 Nov, [facility] [address] 96303- 2385 Oct, [facility] [address] 33289- 6887 Oct, Hyperinsulinemia E16.1 [facility] [address] 75137- 0386 Oct, Other chronic pain G89.29 ; Chronic obstructive pulmonary disease, unspecified COPD type J44.9 ; Insomnia, unspecified type G47.00 ; Hyperinsulinemia E16.1 and Essential hypertension I10 [facility] [address] 11315- 0150 Sep, [facility] [address] 09894- 0581 Aug, [facility] [address] 80118- 9383 30 Jul, 2015 [facility] [address] 52395- 7570 Jul, [facility] [address] 41125- 9382 Jul, Overweight 278.02 and Hyperinsulinemia 251.1 [facility] [address] 04167- 254 Jul, [facility] [address] 38510- 1771 Jun, Skin tags, multiple acquired 701.9 [place] [address] 44981- 0536 13 Jun, 2015 Other chronic pain 338.29 ; Erectile dysfunction 607.84 ; Hyperinsulinemia 251.1 and Hypertension 401.9 [facility] [address] [place] [address] 03576- 5702 Jun, [facility] [address] [address]- 3548 Jun, [facility] [address] [place] [id number] [place] [address] 74620- 2231 Jun, [facility] [address] [place] [id number] [address]- 6897 May, Pure hyperglyceridemia 272.1 [facility] [address] [place] [id number] [place] [address] 452130- 0664 May, Pure hyperglyceridemia 272.1 [facility] [address] [place] [id number] [place] [address] 261371- 5346 May, [facility] [address] [place] [id number] [place] [address] 656886- 9657 May, Overgrown toenails 703.8 ; Seborrheic keratosis 702.19 ; Skin tag 701.9 ; Warts, genital 078.11 ; Cramps, extremity 729.82 ; Increased appetite 783.6 and Heat rash 705.1 [facility] [address] [address]- 4447 May, [facility] [address] [place] [id number] [place] [address] 73538- 4654 Apr, [facility] [address] [address]- 3345 Apr, [facility] [address] [address]- 8019 March, [facility] [id number] [place] [address] 56903- 0722 Feb, [facility] [id number] [place] [address] 077823- 9647 Feb, [facility] [address] 6868 Jan, [facility] [place] [facility] [address] [place] [id number] [address]- 5159 27 Jan, 2014 [facility] [place] [facility] [address] [id number] [place] [address]- 2697 27 Jan, 2014 [facility] [place] [facility] [address] [id number] [place] [address]- 6081 27 Jan, 2014 [facility] [place] [facility] [address] [id number] [place] [address]- 7537 19 Jan, 2014 [facility] [place] [facility] [address] [id number] [place] [address]- 8426 19 Jan, 2014 [facility] [place] [facility] [address] [id number] [place] [address]- 0528 16 Jan, 2014 [facility] [place] [facility] [address] [id number] [place] [address]- 9394 16 Jan, 2014 [facility] [place] [facility] [address] [id number] [place] [address]- 7822 10 Jan, 2014 [facility] [place] [facility] [address] [id number] [place] [address]- 7041 10 Jan, 2014 [facility] [place] [facility] [address] [id number] [place] [address]- 3530 05 Jan, 2014 [facility] [place] [facility] [address] [id number] [place] [address]- 4417 05 Jan, 2014 [facility] [place] [facility] [address] [id number] [place] [address]- 0028 Dec, 2014 [facility] [place] [facility] [address] [id number] [place] [address]- 8809 Dec, 2014 [facility] [place] [facility] [address] [id number] [place] [address]- 8946 09 Dec, 2014 [facility] [place] [facility] [address] [id number] [place] [address]- 2066 09 Dec, 2014 [facility] [place] [facility] [address] [id number] [place] [address]- 1009 Dec, [facility] [place] [facility] [address] [id number] [place] [address]- 6720 Dec, [facility] [place] [facility] [address] [id number] [place] [address]- 1656 Dec, [facility] [place] [facility] [address] [id number] [place] [address]- 3425 Dec, [facility] [place] [facility] [address] [id number] [place] [address]- 1074 Nov, [facility] [place] [facility] [address] [id number] [place] [address]- 0468 Nov, [facility] [place] [facility] [address] [id number] [place] [address]- 3272 Nov, [facility] [place] [facility] [address] [id number] [place] [address]- 1491 Nov, [facility] [place] [facility] [address] [id number] [place] [address]- 5498 Nov, [facility] [place] [facility] [address] [id number] [place] [address]- 7266 Nov, [facility] [place] [facility] [address] [id number] [place] [address]- 3834 Nov, [facility] [place] [facility] [address] [id number] [place] [address]- 3029 Nov, [facility] [place] [facility] [address] [id number] [place] [address]- 9297 Oct, [facility] [place] [facility] [address] [id number] [place] [address]- 5130 Oct, [facility] [place] [facility] [address] [id number] [place] [address]- 8931 Sep, [facility] [place] [facility] [address] [id number] [place] [address]- 0159 Sep, [facility] [place] [facility] [address] [id number] [place] [address]- 9401 Sep, [facility] [place] [facility] [address] [id number] [place] [address]- 7240 Sep, [facility] [place] [facility] [address] [id number] [place] [address]- 9772 Aug, [facility] [place] [facility] [address] [id number] [place] [address]- 4371 Aug, [facility] [place] [facility] [address] [id number] [place] [address]- 3779 Aug, [facility] [place] [facility] [address] [id number] [place] [address]- 7404 Aug, [facility] [place] [facility] [address] [id number] [place] [address]- 0473 Aug, [facility] [place] [facility] [address] [id number] [place] [address]- 9430 Aug, [facility] [place] [facility] [address] [id number] [place] [address]- 6208 Aug, [facility] [place] [facility] [address] [id number] [place] [address]- 4961 Aug, [facility] [place] [facility] [address] [id number] [place] [address]- 0722 Jul, [facility] [place] [facility] [address] [id number] [place] [address]- 1558 Jul, [facility] [place] [facility] [address] [id number] [place] [address]- 9959 Jul, [facility] [place] [facility] [address] [id number] [place] [address]- 1601 Jul, [facility] [place] [facility] [address] [id number] [place] [address]- 0172 Jul, [facility] [place] [facility] [address] [id number] [place] 1426 Jun, [facility] [place] [facility] [address] [id number] [place] [address]- 3203 Jun, [facility] [place] [facility] [address] [id number] [place] [address]- 8365 Jun, [facility] [place] [facility] [address] [id number] [place] [address]- 6699 Jun, [facility] [place] [facility] [address] [id number] [place] [address]- 7739 Jun, [facility] [place] [facility] [address] [id number] [place] [address]- 0481 Jun, [facility] [place] [facility] [address] [id number] [place] [address]- 8634 May, [facility] [place] [facility] [address] [id number] [place] [address]- 6987 May, [facility] [place] [facility] [address] [id number] [place] [address]- 7451 May, [facility] [place] [facility] [address] [id number] [place] [address]- 4863 May, [facility] [place] [facility] [address] [id number] [place] [address]- 1688 Apr, [facility] [place] [facility] [address] [id number] [place] [address]- 7907 Apr, [facility] [place] [facility] [address] [id number] [place] [address]- 7466 Apr, [facility] [place] [facility] [address] [id number] [place] [address]- 8180 Apr, [facility] [place] [facility] [address] [id number] [place] [address]- 9856 Apr, [facility] [place] [facility] [address] [id number] [place] [address]- 7564 Apr, [facility] [place] [facility] [address] [id number] [place] [address]- 4274 March, [facility] [address] [id number] [place] [address]- 2401 March, [facility] [place] [facility] [address] [id number] [place] [address]- 1363 March, [facility] [place] [facility] [address] [id number] [place] [address]- 4130 March, [facility] [place] [facility] [address] [id number] [place] [address]- 6936 Feb, [facility] [place] [facility] [address] [id number] [place] [address]- 7818 Feb, [facility] [place] [facility] [address] [id number] [place] [address]- 2469 Feb, [facility] [address] [id number] [place] [address]- 8963 Feb, [facility] [place] [facility] [address] [id number] [place] [address]- 3280 Feb, [facility] [place] [facility] [address] [id number] [place] [address]- 5708 Feb, [facility] [place] [facility] [address] [id number] [place] [address]- 7811 Feb, [facility] [place] [facility] [address] [id number] [place] [address]- 2685 Feb, [facility] [place] [facility] [address] [id number] [place] [address]- 3215 Feb, [facility] [place] [facility] [address] [id number] [place] [address]- 9668 Feb, [facility] [place] [facility] [address] [id number] [place] [address]- 9390 Feb, [facility] [place] [facility] [address] [id number] [place] [address]- 9333 Feb, [facility] [place] [facility] [address] [id number] [place] [address]- 5702 Feb, [facility] [place] [facility] [address] [id number] [place] [address]- 4686 Feb, [facility] [place] [facility] [address] [id number] [place] 7156 Feb, [facility] [place] [facility] [address] [id number] [place] [address]- 4906 Feb, [facility] [place] [facility] [address] [id number] [place] [address]- 9941 Jan, [facility] [place] [facility] [address] [id number] [place] [address]- 1053 Jan, [facility] [place] [facility] [address] [facility] [id number] [place] [address]- 3885 Dec, [facility] [place] [facility] [address] [id number] [place] [address]- 6642 Dec, [facility] [place] [facility] [address] [id number] [place] [address]- 4740 Dec, [facility] [place] [facility] [address] [facility] [id number] [place] [address]- 5259 Dec, [facility] [place] [facility] [address] [facility] [id number] [place] [address]- 4477 Dec, [facility] [place] [facility] [address] [id number] [place] [address]- 8345 Dec, [facility] [place] [facility] [address] [id number] [place] [address] Dec, [facility] [place] [facility] [address] [id number] [place] [address] Nov, [facility] [place] [facility] [address] [id number] [place] [address] Nov, [facility] [place] [facility] [address] [id number] [place] [address] Nov, [facility] [place] [facility] [address] [id number] [place] [address] Nov, [facility] [place] [facility] [address] [id number] [place] [address] Oct, [facility] [place] [facility] [address] [id number] [place] [address] Oct, [facility] [place] [facility] [address] [id number] [place] [address] Sep, [facility] [place] [facility] [address] [id number] [place] [address] Sep, [facility] [place] [facility] [address] [id number] [place] [address] Aug, [facility] [place] [facility] [address] [id number] [place] [address] Aug, [facility] [place] [facility] [address] [id number] [place] [address] Aug, [facility] [place] [facility] [address] [id number] [place] [address] Aug, [facility] [place] [facility] [address] [facility] [id number] [place] [address] Aug, [facility] [place] [facility] [address] [id number] [place] [address] Aug, [facility] [place] [facility] [address] [id number] [place] [address] Aug, [facility] [place] [facility] [address] [id number] [place] [address] Aug, [facility] [place] [facility] [address] [facility] [id number] [place] [address] Aug, [facility] [place] [facility] [address] [facility] [id number] [place] [address] Aug, [facility] [place] [facility] [address] [id number] [place] [address] Jun, [facility] [place] [facility] [address] [id number] [place] [address] Jun, [facility] [place] [facility] [address] [id number] [place] [address] May, [facility] [place] [facility] [address] [id number] [place] [address] Apr, [facility] [place] [facility] [address] [id number] [place] [address] Apr, [facility] [place] [facility] [address] [id number] [place] [address] March, [facility] [place] [facility] [address] [id number] [place] [address] Feb, [facility] [place] [facility] [address] [id number] [place] [address] Jan, [facility] [place] [facility] [address] [id number] [place] [address] Jan, [facility] [place] [facility] [address] [id number] [place] [address] Dec, [facility] [place] [facility] [address] [id number] [place] [address] Dec, [facility] [place] [facility] [address] [id number] [place] [address] Nov, [facility] [place] [facility] [address] [id number] [place] [address] Jul, [facility] [place] [facility] [address] [id number] [place] [address] Jul, [facility] [place] [facility] [address] [id number] [place] [address] Jun, [facility] [place] [facility] [address] [id number] [place] [address] May, [facility] [address] [id number] [place] [address] May, [facility] [id number] [address] May, [facility] [id number] [address] May, [facility] [id number] [address] May, [facility] [id number] [address] May, [facility] [id number] [address] May, [facility] [id number] [address] Apr, [facility] [id number] [address] Apr, [facility] [id number] [address] Apr, [facility] [id number] [address] Apr, IMMUNIZATIONS No Known Immunizations SOCIAL HISTORY Never Assessed REASON FOR VISIT Pain management (chronic), No refills needed at this time- Moise WHITTAKER PLAN OF CARE Activity Details Follow Up 4 Weeks Reason:pain mgmt VITAL SIGNS Height 66 in 2017-05-25 Weight 235.6 lbs 2017-05-25 Temperature 97.6 degrees Fahrenheit 2017-05-25 Heart Rate 78 bpm 2017-05-25 Respiratory Rate 18 2017-05-25 BMI 38.02 kg/m2 2017-05-25 Blood pressure systolic 132 mmHg 2017-05-25 Blood pressure diastolic 76 mmHg 2017-05-25 MEDICATIONS Medication Instructions Dosage Frequency Start Date End Date Duration Status Symbicort 160-4.5 MCG/ACT INHALE TWO PUFFS BY MOUTH TWICE DAILY IN THE MORNING AND EVENING Active Hydrocodone-Acetaminophen 10-325 MG Orally 4 times a day 1 tablet as needed for pain 6h Apr, 28 days Active Oxygen N/A 1 1/2 l at hs Once a day as directed 24h Oct, Active Stiolto Respimat 2.5-2.5 MCG/ACT Inhalation Once a day 2 samples given 2 puffs Oct, Active Viagra 100 MG Orally Once a day prn 1 tablet as needed 10 Active Trazodone HCl 50 mg Orally Once a day 1-2 tablet at bedtime as needed 24h Apr, 30 day(s) Active RESULTS Name Result Date Reference Range [employer]ITOX 2017-05-25 LIPID PANEL 2017-05-25 Cholesterol, Total 250 100-199 Triglycerides 673 0-149 HDL Cholesterol 24 >39 VLDL Cholesterol Lisandro 5-40 LDL Cholesterol Calc 0-99 Comment: CMP 2017-05-25 Glucose, Serum 95 65-99 BUN 15 8-27 Creatinine, Serum 0.85 0.76-1.27 eGFR If NonAfricn Am 92 >59 eGFR If Africn Am 106 >59 BUN/Creatinine Ratio 18 10-24 Sodium, Serum 137 134-144 Potassium, Serum 4.4 3.5-5.2 Chloride, Serum 96 96-106 Carbon Dioxide, Total 26 18-29 Calcium, Serum 9.2 8.6-10.2 Protein, Total, Serum 7.3 6.0-8.5 Albumin, Serum 4.3 3.6-4.8 Globulin, Total 3.0 1.5-4.5 A/G Ratio 1.4 1.2-2.2 Bilirubin, Total 0.5 0.0-1.2 Alkaline Phosphatase, S 51 39-117 AST (SGOT) 27 0-40 ALT (SGPT) 30 0-44 PROCEDURES Procedure Date Ordered Result Body Site No Charge May 25, 2017 LIPID PANEL May 25, 2017 COMPREHEN METABOLIC PANEL May 25, 2017 VENIPUNCT, ROUTINE* May 25, 2017 INSTRUCTIONS MEDICATIONS ADMINISTERED No Known Medications MEDICAL (GENERAL) HISTORY Type Description Date Medical History hypogonadism Medical History hyperlipidemia Medical History pre-diabetic Medical History chronic pain Medical History COPD Surgical History skin cancer 1999 Hospitalization History surgery Hospitalization History MRSA infection 05/2015
--- OUTSIDE RECORDS SUMMARY | 2018-10-30 17:04 | XMS REPORT ---
Author Author JOSÉ LUIS RODRÍGUEZ [facility] eClinicalWorks Address Unknown Phone Unavailable Care Team Providers Care Headhunter Name Role Phone JOSÉ LUIS RODRÍGUEZ CP [...] Instructions Start Date End Date Status Dosage Lipitor [facility] [address]-93 40 MG Orally Once a day Nov 21, 2015 1 tablet Results No Known Results Summary Purpose eClinicalWorks Submission
--- OUTSIDE RECORDS SUMMARY | 2018-10-30 17:05 | XMS REPORT | Continuity of Care Document ---
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 Allergies, Adverse Reactions, Alerts Allergen Type Severity Reaction Last Updated No Known Drug Allergies 03/21/13 Medications Medication Dose Units Route Sig Qty Days Budesonide/Formoterol Fumarate (Symbicort 160-4.5 Mcg Inhaler) 2 Puff IH BID Albuterol (Proventil) 2 Puff IH Q6H PRN Ipratropium/Albuterol Sulfate (Combivent Inhaler) 2 Puff IH QID Hydrocodone Bit/Acetaminophen (Hydrocodon-Acetaminophn 10-500) 10 - 500 Mg PO Q8H PRN Triamcinolone Acetonide (Triamcinolone 0.5% Cream) 0 TOP BID Amlodipine Besylate 10 Mg PO DAILY Atorvastatin Calcium (Lipitor 40MG) 40 Mg PO DAILY Bupropion HCl (Wellbutrin Sr) 150 Mg PO BID Response Recorded Date/Time Status not known Unknown Results Test Date Result Interp. Ref. Range BUN/Creatinine Ratio March 21, 2013 11:25am 19 - Basophils # (Auto) March 21, 2013 11:25am 0.0 10^3/uL N 0.0-0.1 Basophils (%) (Auto) March 21, 2013 11:25am 0 % N 0-10 Blood Urea Nitrogen March 21, 2013 11:25am 17 MG/DL N 7-18 Calcium Level March 21, 2013 11:25am 8.5 MG/DL N 8.5-10.1 Carbon Dioxide Level March 21, 2013 11:25am 25 MMOL/L N 21-32 Chloride Level March 21, 2013 11:25am 100 MMOL/L L 101-110 Creatinine March 21, 2013 11:25am 0.9 MG /DL N 0.6-1.3 Eosinophils # (Auto) March 21, 2013 11:25am 0.2 10^3/uL N 0.0-0.3 Eosinophils (%) (Auto) March 21, 2013 11:25am 3 % N 0-10 Glucose Level March 21, 2013 11:25am 104 MG/DL N 74-106 Hematocrit March 21, 2013 11:25am 49 % N 40-54 Hemoglobin March 21, 2013 11:25am 16.8 G /DL N 13.3-17.7 Lymphocytes # (Auto) March 21, 2013 11:25am 3.3 X 10^3 N 1.0-4.0 Lymphocytes (%) (Auto) March 21, 2013 11:25am 38 % N 12-44 Mean Corpuscular Hemoglobin March 21, 2013 11:25am 32 PG N 25-34 Mean Corpuscular Hemoglobin Concent March 21, 2013 11:25am 34 G/DL N 32-36 Mean Corpuscular Volume March 21, 2013 11:25am 94 FL N 80-99 Mean Platelet Volume March 21, 2013 11:25am 9.6 FL N 7.4-10.4 Monocytes # (Auto) March 21, 2013 11:25am 1.1 X 10^3 H 0.0-1.0 Monocytes (%) (Auto) March 21, 2013 11:25am 13 % H 0-12 Neutrophils # (Auto) March 21, 2013 11:25am 4.0 X 10^3 N 1.8-7.8 Neutrophils (%) (Auto) March 21, 2013 11:25am 46 % N 42-75 Platelet Count March 21, 2013 11:25am 202 10^3/uL N 130-400 Potassium Level March 21, 2013 11:25am 4.0 MMOL/L N 3.6-5.0 Red Blood Count March 21, 2013 11:25am 5.24 10^6/uL N 4.35-5.85 Red Cell Distribution Width March 21, 2013 11:25am 14.1 % N 10.0-14.5 Sodium Level March 21, 2013 11:25am 136 MMOL/L N 135-145 White Blood Count March 21, 2013 11:25am 8.7 10^3/uL N 4.3-11.0 Estimat Glomerular Filtration Rate March 21, 2013 11:25am > 60 - Procedures Procedure Code Date MRSA Screen 03/21/13
--- OUTSIDE RECORDS SUMMARY | 2018-10-30 17:05 | XMS REPORT ---
Author Author JOSÉ LUIS RODRÍGUEZ [facility] Address [address] [place] [address] Care Team Providers Care Events Specialist Name Role Phone JOSÉ LUIS RODRÍGUEZ Unavailable PROBLEMS Type Condition ICD9-CM Code SSJ25-NL Code Onset Dates Condition Status SNOMED Code Problem Chronic pain G89.29 Active 72213401 Problem Family history of diabetes mellitus Z83.3 Active 019781478 Problem Hypertriglyceridemia E78.1 Active 978725606 Problem History of MRSA infection Z86.14 Active 475933877 Problem Insomnia, unspecified type G47.00 Active 704547429 Problem Primary insomnia F51.01 Active 1216010 Problem Osteoarthritis M19.90 Active 675095885 Problem Hyperinsulinemia E16.1 Active 93970089 Problem Essential hypertension I10 Active 01054543 Problem Chronic obstructive pulmonary disease, unspecified COPD type J44.9 Active [id number] ALLERGIES No Information ENCOUNTERS Encounter Location Date Diagnosis [place] [address] [address]- [address]841 Jan, Chronic pain G89.29 [place] [address] [place] [id number] [place] [address] 78248- 0607 Dec, Chronic pain G89.29 [place] [address] [place] [id number] [place] [address] 63924- 6189 Nov, Chronic pain G89.29 and Insomnia, unspecified type G47.00 [place] [address] 01949- 6137 Oct, Insomnia, unspecified type G47.00 ; Chronic pain G89.29 and Colon cancer screening Z12.11 [place] [address] [place] [id number] [place] [address] 88948- 3504 Oct, Chronic pain G89.29 [facility] [address] [address] 7501 Sep, Chronic pain G89.29 and Insomnia, unspecified type G47.00 [facility] [address] [place] [id number] [place] [address] 03568- 1589 Sep, Chronic pain G89.29 [place] [address] [place] [id number] [place] [address] 83195- 4235 Sep, [facility] [address] [place] [id number] [place] [address] 49928- 7412 Aug, Medicare welcome exam Z00.00 ; Encounter for immunization Z23 ; Colon cancer screening Z12.11 and Encounter for screening for lung cancer Z12.2 [place] [address] [place] [id number] [place] [address] 89275- 2721 Aug, [place] [address] [place] [id number] [place] [address] 75788- 9307 Aug, Chronic pain G89.29 and Insomnia, unspecified type G47.00 [place] [address] [place] [id number] [place] [address] 53374- 8693 Aug, Hypertriglyceridemia E78.1 [place] [address] [place] [id number] [place] [address] 69820- 8516 Jul, Chronic pain G89.29 and Insomnia, unspecified type G47.00 [place] [address], [place] [address]- 4759 Jun, Hypertriglyceridemia E78.1 [facility] [id number] [place] [address] 27251- 1586 Jun, Chronic pain G89.29 and Insomnia, unspecified type G47.00 [facility] [address], [place] [address]- 9071 Jun, [place] [id number] [place] [address] 28023- 9354 Jun, [place] [address] [place] [id number] [place] [address] 87910- 5750 May, Hyperinsulinemia E16.1 ; Chronic pain G89.29 ; Insomnia, unspecified type G47.00 and Rash R21 [facility] [address] [place] [id number] [place] [address] 53253- 6875 May, Chronic pain G89.29 [facility] [address] 98937- 9791 May, Hypertriglyceridemia E78.1 [facility] [address] 09650- 6664 Apr, Chronic pain G89.29 [facility] [address] 17086- 9754 Apr, Chronic pain G89.29 ; Hyperinsulinemia E16.1 ; Hypertriglyceridemia E78.1 and Primary insomnia F51.01 [facility] [address] 99318- 4172 March, Chronic pain G89.29 [facility] [address] 68866- 9338 March, Chronic pain G89.29 [facility] [address] [place] [id number] [place] [address] 17514- 0238 Feb, [facility] [address] [place] [id number] [place] [address] 23617- 1613 Feb, Chronic pain G89.29 [facility] [address] [place] [id number] [place] [address] 62988- 5743 Jan, Chronic pain G89.29 [facility] [address] 37094- 4185 Dec, Chronic pain G89.29 [facility] [address] [place] [id number] [place] [address] 21167- 1282 Dec, [facility] [address] 43960- 7805 Nov, Hypertriglyceridemia E78.1 [facility] [address] 79650- 0486 Nov, [facility] [address] 34461- 8324 Nov, Chronic pain G89.29 ; Hypertriglyceridemia E78.1 and Chronic obstructive pulmonary disease, unspecified COPD type J44.9 [facility] [address] 53247- 7899 Nov, Chronic pain G89.29 [facility] [address] 00592- 3975 Oct, Chronic pain G89.29 [facility] [address] 02205- 7264 Oct, [facility] [address] 46819- 6012 Sep, Chronic obstructive pulmonary disease, unspecified COPD type J44.9 and Abscess L02.91 [place] [address] 55650- 1757 Sep, Chronic pain G89.29 [facility] [address] 11176- 2719 Aug, Chronic pain G89.29 [facility] [address] 50604- 7114 Aug, Chronic pain G89.29 [facility] [address] [place] [id number] [place] [address] 65099- 3142 Aug, Cutaneous horn L85.8 and Skin tag L91.8 [facility] [address] [place] [id number] [place] [address] 56617- 0740 Jul, [facility] [address] [place] [id number] [place] [address] 23972- 3552 Jul, Hypertriglyceridemia E78.1 [facility] [address] [place] [id number] [place] [address] 16741- 3111 07 Jul, 2016 Other chronic pain G89.29 ; Essential hypertension I10 ; Hyperinsulinemia E16.1 ; Hyperlipidemia, unspecified hyperlipidemia type E78.5 and Cutaneous horn L85.8 [facility] [address] [place] [id number] [place] [address] 83444- 7015 Jun, Chronic pain G89.29 [facility] [address] 00655- 1416 May, Chronic pain G89.29 [facility] [address] 75825- 7766 May, [facility] [address] 36738- 5027 May, Skin infection L08.9 [facility] [address] 40905- 2195 Apr, Chronic pain G89.29 [facility] [address] 74073- 8241 Apr, [facility] [address] 61600- 2044 Apr, Chronic pain G89.29 [facility] [address] [place] [id number] [place] [address] 59471- 1593 March, [facility] [address] [place] [id number] [place] [address] 85551 2540 Feb, Chronic pain G89.29 ; Hyperinsulinemia E16.1 and Hypertriglyceridemia E78.1 [facility] [address] 33235- 8026 Feb, [facility] [address] [place] [id number] [place] [address] 50380- 4542 Jan, [facility] [address] [place] [id number] [place] [address] 98379- 7375 Dec, [facility] [address] [place] [id number] [place] [address] 55154- 5171 Nov, [facility] [address] 16919- 7571 Oct, [facility] [address] [place] [id number] [place] [address] 34647- 8283 Oct, Hyperinsulinemia E16.1 [facility] [address] 34494- 5208 Oct, Other chronic pain G89.29 ; Chronic obstructive pulmonary disease, unspecified COPD type J44.9 ; Insomnia, unspecified type G47.00 ; Hyperinsulinemia E16.1 and Essential hypertension I10 [facility] [address] [place] [id number] [place] [address] 85532- 3664 Sep, [facility] [address] 94102- 0056 Aug, [facility] [address] 37873- 6191 30 Jul, 2015 [facility] [address] 41445- 3989 Jul, [facility] [address] [place] [id number] [place] [address] 55286- 0440 Jul, Overweight 278.02 and Hyperinsulinemia 251.1 [facility] [address] [place] [id number] [place] [address] 19749- 2547 Jul, [facility] [address] [place] [id number] [place] [address] 83326- 7964 18 Jun, 2015 Skin tags, multiple acquired 701.9 [place] [address] 56185- 4354 13 Jun, 2015 Other chronic pain 338.29 ; Erectile dysfunction 607.84 ; Hyperinsulinemia 251.1 and Hypertension 401.9 [facility] [address] [place] [address] 07820- 2547 Jun, [facility] [address], [place] [address]- 3959 Jun, [facility] [address] [place] [id number] [place] [address] 89776- 6523 Jun, [facility] [address] [place] [id number] [address]- 2305 May, Pure hyperglyceridemia 272.1 [facility] [address] [place] [id number] [place] [address] 80775- 8132 May, Pure hyperglyceridemia 272.1 [facility] [address] [place] [id number] [place] [address] 38326- 2045 May, [facility] [address] [place] [id number] [place] [address] 05839- 0749 May, Overgrown toenails 703.8 ; Seborrheic keratosis 702.19 ; Skin tag 701.9 ; Warts, genital 078.11 ; Cramps, extremity 729.82 ; Increased appetite 783.6 and Heat rash 705.1 [facility] [address], [place] [address]- 8146 May, [facility] [address] [place] [id number] [place] [address] 17631- 5684 Apr, [facility] [address], [place] [address]- 0042 Apr, [facility] [address], [place] [address]- 8720 March, [facility] [address], [place] [address]- 7327 Feb, [facility] [address], [place] [address]- 6309 Feb, [facility] [address], [place] [address]- 7793 Jan, [facility] [address] [place] [address]- 6055 27 Jan, 2014 [facility] [place] [facility] [address] [id number] [place] [address]- 6696 27 Jan, 2014 [facility] [place] [facility] [address] [id number] [place] [address]- 3443 27 Jan, 2014 [facility] [place] [facility] [address] [id number] [place] [address]- 9203 19 Jan, 2014 [facility] [place] [facility] [address] [id number] [place] [address]- 8238 19 Jan, 2014 [facility] [place] [facility] [address] [id number] [place] [address]- 9152 16 Jan, 2014 [facility] [place] [facility] [address] [id number] [place] [address]- 0490 16 Jan, 2014 [facility] [place] [facility] [address] [id number] [place] [address]- 2066 10 Jan, 2014 [facility] [place] [facility] [address] [id number] [place] [address]- 4088 10 Jan, 2015 [facility] [place] [facility] [address] [id number] [place] [address]- 4775 05 Jan, 2014 [facility] [place] [facility] [address] [id number] [place] [address]- 1611 05 Jan, 2015 [facility] [place] [facility] [address] [id number] [place] [address]- 6486 Dec, 2014 [facility] [place] [facility] [address] [id number] [place] [address]- 5736 Dec, 2014 [facility] [place] [facility] [address] [id number] [place] [address]- 1606 Dec, 2014 [facility] [place] [facility] [address] [id number] [place] [address]- 2546 Dec, 2014 [facility] [place] [facility] [address] [id number] [place] [address]- 6627 Dec, [facility] [place] [facility] [address] [id number] [place] [address]- 1934 Dec, [facility] [place] [facility] [address] [id number] [place] [address]- 5168 Dec, [facility] [place] [facility] [address] [id number] [place] [address]- 2306 Dec, [facility] [place] [facility] [address] [id number] [place] [address]- 5543 Nov, [facility] [place] [facility] [address] [id number] [place] [address]- 6438 Nov, [facility] [place] [facility] [address] [id number] [place] [address]- 6541 Nov, [facility] [place] [facility] [address] [id number] [place] [address]- 7515 Nov, [facility] [place] [facility] [address] [id number] [place] [address]- 9956 Nov, [facility] [place] [facility] [address] [id number] [place] [address]- 7728 Nov, [facility] [place] [facility] [address] [id number] [place] [address]- 2774 Nov, [facility] [place] [facility] [address] [id number], [place] [address]- 0962 Nov, [facility] [place] [facility] [address] [id number], [place] [address]- 1493 Oct, [facility] [place] [facility] [address] [id number] [place] [address]- 5038 Oct, [facility] [place] [facility] [address] [id number] [place] [address]- 9142 Sep, [facility] [place] [facility] [address] [id number] [place] [address]- 9774 Sep, [facility] [place] [facility] [address] [id number] [place] [address]- 0432 Sep, [facility] [place] [facility] [address] [id number] [place] [address]- 0688 Sep, [facility] [place] [facility] [address] [id number] [place] 5122 Aug, [facility] [place] [facility] [address] [id number] [place] [address]- 7808 Aug, [facility] [place] [facility] [address] [id number] [place] [address]- 3792 Aug, [facility] [place] [facility] [address] [id number] [place] [address]- 9914 Aug, [facility] [place] [facility] [address] [id number] [place] [address]- 2586 Aug, [facility] [place] [facility] [address] [id number] [place] [address]- 7404 Aug, [facility] [place] [facility] [address] [id number] [place] [address]- 3181 Aug, [facility] [place] [facility] [address] [id number] [place] [address]- 5915 Aug, [facility] [place] [facility] [address] [id number] [place] [address]- 9034 Jul, [facility] [place] [facility] [address] [id number] [place] [address]- 6653 Jul, [facility] [place] [facility] [address] [id number] [place] [address]- 9736 Jul, [facility] [place] [facility] [address] [id number] [place] [address]- 0670 Jul, [facility] [place] [facility] [address] [id number] [place] [address]- 1771 Jul, [facility] [place] [facility] [address] [id number] [place] 8387 Jun, [facility] [place] [facility] [address] [id number] [place] [address]- 9852 Jun, [facility] [place] [facility] [address] [id number] [place] [address]- 0230 Jun, [facility] [place] [facility] [address] [id number] [place] [address]- 6846 Jun, [facility] [place] [facility] [address] [id number] [place] [address]- 4726 Jun, [facility] [place] [facility] [address] [id number] [place] [address]- 6444 Jun, [facility] [place] [facility] [address] [id number] [place] [address]- 4900 May, [facility] [place] [facility] [address] [id number] [place] [address]- 9451 May, [facility] [place] [facility] [address] [id number] [place] [address]- 3759 May, [facility] [place] [facility] [address] [id number] [place] [address]- 1482 May, [facility] [place] [facility] [address] [id number] [place] [address]- 0387 Apr, [facility] [place] [facility] [address] [id number] [place] [address]- 2045 Apr, [facility] [place] [facility] [address] [id number] [place] [address]- 3177 Apr, [facility] [place] [facility] [address] [id number] [place] [address]- 0361 Apr, [facility] [place] [facility] [address] [id number] [place] [address]- 5466 Apr, [facility] [place] [facility] [address] [id number] [place] [address]- 7229 Apr, [facility] [place] [facility] [address] [id number], [place] [address]- 1667 March, [facility] [facility] [address] [id number] [place] [address]- 4170 March, [facility] [place] [facility] [address] [id number] [place] [address]- 4938 March, [facility] [place] [facility] [address] [id number] [place] [address]- 6034 March, [facility] [place] [facility] [address] [id number] [place] [address]- 5961 Feb, [facility] [place] [facility] [address] [id number] [place] [address]- 4580 Feb, [facility] [place] [facility] [address] [id number] [place] [address]- 9151 Feb, [facility] [place] [facility] [address] [id number] [place] [address]- 1507 Feb, [facility] [place] [facility] [address] [id number] [place] [address]- 9607 Feb, [facility] [place] [facility] [address] [id number] [place] [address]- 3957 Feb, [facility] [place] [facility] [address] [id number] [place] [address]- 2229 Feb, [facility] [place] [facility] [address] [id number] [place] [address]- 1858 Feb, [facility] [place] [facility] [address] [id number] [place] [address]- 0384 Feb, [facility] [place] [facility] [address] [id number] [place] [address]- 2938 Feb, [facility] [place] [facility] [address] [id number] [place] [address]- 2189 Feb, [facility] [place] [facility] [address] [id number] [place] [address]- 0416 Feb, [facility] [place] [facility] [address] [id number] [place] [address]- 2246 Feb, [facility] [place] [facility] [address] [id number] [place] [address]- 6554 Feb, [facility] [place] [facility] [address] [id number] [place] [address]- 2341 Feb, [facility] [place] [facility] [address] [id number] [place] [address]- 0305 Feb, [facility] [place] [facility] [address] [id number] [place] [address]- 2079 Jan, [facility] [place] [facility] [address] [id number] [place] [address]- 7963 Jan, [facility] [place] [facility] [address] [facility] [id number] [place] [address]- 6804 Dec, [facility] [place] [facility] [address] [id number] [place] [address]- 1309 Dec, [facility] [place] [facility] [address] [id number] [place] [address]- 4316 Dec, [facility] [place] [facility] [address] [facility] [id number] [place] [address]- 7895 Dec, [facility] [place] [facility] [address] [facility] [id number] [place] [address]- 3812 Dec, [facility] [place] [facility] [address] [id number], [place] [address]- 8508 Dec, [facility] [place] [facility] [address] [id number] [place] [address]- 5476 Dec, [facility] [place] [facility] [address] [id number] [place] 9020 Nov, [facility] [place] [facility] [address] [id number] [place] 8760 Nov, [facility] [place] [facility] [address] [id number], [place] [address]- 7446 Nov, [facility] [place] [facility] [address] [id number] [place] [address]- 3792 Nov, [facility] [place] [facility] [address] [id number], [place] [address]- 2636 Oct, [facility] [place] [facility] [address] [id number] [place] [address]- 5490 Oct, [facility] [place] [facility] [address] [id number] [place] [address]- 4916 Sep, [facility] [place] [facility] [address] [id number] [place] [address]- 4440 Sep, [facility] [place] [facility] [address] [id number] [place] [address]- 9727 Aug, [facility] [place] [facility] [address] [id number] [place] [address]- 1540 Aug, [facility] [place] [facility] [address] [id number] [place] [address]- 4097 Aug, [facility] [place] [facility] [address] [id number] [place] [address] Aug, [facility] [place] [facility] [address] [id number] [place] [address] Aug, [facility] [place] [facility] [address] [id number], [place] [address] Aug, [facility] [place] [facility] [address] [id number], [place] [address] Aug, [facility] [place] [facility] [address] [id number] [place] [address] Aug, [facility] [place] [facility] [address] [id number], [place] [address] Aug, [facility] [place] [facility] [address] [id number], [place] [address] Aug, [facility] [place] [facility] [address] [id number] [place] [address] Jun, [facility] [address] [id number] [place] [address] Jun, [facility] [place] [facility] [address] [id number] [place] [address] May, [facility] [place] [facility] [address] [id number] [place] [address] Apr, [facility] [place] [facility] [address] [id number] [place] [address] Apr, [facility] [place] [facility] [address] [id number] [place] [address] March, [facility] [place] [facility] [address] [id number] [place] [address] Feb, [facility] [place] [facility] [address] [id number] [place] [address] Jan, [facility] [place] [facility] [address] [id number] [place] [address] Jan, [facility] [place] [facility] [address] [id number] [place] [address] Dec, [facility] [place] [facility] [address] [id number] [place] [address] Dec, [facility] [place] [facility] [address] [id number] [place] [address] Nov, [facility] [place] [facility] [address] [id number] [place] [address] Jul, [facility] [place] [facility] [address] [id number] [place] [address] Jul, [facility] [place] [facility] [address] [id number] [place] [address] Jun, [facility] [place] [facility] [address] [id number] [place] [id number] May, [facility] [address] [facility] [id number], [place] [address] May, [facility] [address] [facility] [id number], [place] [address] May, [facility] [address] [facility] [id number], [place] [address] May, [facility] [address] [facility] [id number], [place] [address] May, [facility] [address] [facility] [id number], [place] [address] May, [facility] [address] [facility] [id number], [place] [address] May, [facility] [id number], [place] [address] Apr, [facility] [id number], [place] [address] Apr, [facility] [address] [id number], [place] [address] Apr, [facility] [address] [id number], [place] [address] Apr, IMMUNIZATIONS No Known Immunizations SOCIAL HISTORY Never Assessed REASON FOR VISIT Controlled Med Refill 06/24/2017 PLAN OF CARE VITAL SIGNS MEDICATIONS Medication Instructions Dosage Frequency Start Date End Date Duration Status Hydrocodone-Acetaminophen 10-325 MG Orally 3 times a day 1 tablet as needed for pain 8h May, 28 days Active RESULTS No Results PROCEDURES No Known procedures INSTRUCTIONS MEDICATIONS ADMINISTERED No Known Medications MEDICAL (GENERAL) HISTORY Type Description Date Medical History hypogonadism Medical History hyperlipidemia Medical History pre-diabetic Medical History chronic pain Medical History COPD Surgical History skin cancer 1999 Hospitalization History surgery Hospitalization History MRSA infection 05/2015
--- OUTSIDE RECORDS SUMMARY | 2018-10-30 17:05 | XMS REPORT ---
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 Phone JOS ÉLUIS RODRÍGUEZ Unavailable PROBLEMS Type Condition ICD9-CM Code [id number] Code Onset Dates Condition Status SNOMED Code Problem Umbilical hernia without mention of obstruction or gangrene 553.1 Active 401311567 Problem History of MRSA infection Z86.14 Active 181068243 Problem Family history of diabetes mellitus V18.0 Active 261761316 Problem Chronic obstructive pulmonary disease, unspecified COPD type J44.9 Active 77591584 Problem Chronic pain G89.29 Active 77847982 Problem Family history of diabetes mellitus Z83.3 Active 602172799 Problem Osteoarthritis M19.90 Active 401972795 Problem Hypertriglyceridemia E78.1 Active 059581141 Problem Hyperinsulinemia E16.1 Active 50456945 Assessment Chronic obstructive pulmonary disease, unspecified COPD type J44.9 Sep, Active 72108386 Problem Essential hypertension, benign 401.1 Active 3932329 Assessment Abscess L02.91 Sep, Active 794074211 Problem Family history of malignant neoplasm of gastrointestinal tract V16.0 Active 093000527 Problem Other chronic pain 338.29 Active 02607956 Problem Chronic airway obstruction, not elsewhere classified 496 Active 22739108 Problem Persistent disorder of initiating or maintaining sleep 307.42 Active 92365910 Problem Family history of malignant neoplasm, prostate V16.42 Active 707135918 Problem Generalized osteoarthrosis, 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.04 Active 01294235 ALLERGIES Substance Reaction Event Type Date Status N.K.D.A. Unknown Non Drug Allergy Sep, Unknown SOCIAL HISTORY No smoking Hx information available PLAN OF CARE VITAL SIGNS Height 66 in 2016-10-28 Weight 234.7 lbs 2016-10-28 Heart Rate 76 bpm 2016-10-28 Respiratory Rate 20 2016-10-28 BMI 37.88 kg/m2 2016-10-28 Blood pressure systolic 130 mmHg 2016-10-28 Blood pressure diastolic 78 mmHg 2016-10-28 MEDICATIONS Medication Instructions Dosage Frequency Start Date End Date Duration Status Lipitor 40 mg Orally Once a day 1 tablet 24h 90 Active Hydrocodone-Acetaminophen 10-325 MG Orally 4 times a day 1 tablet as needed for pain 6h Jan, 28 days Active Atorvastatin Calcium 40 MG TAKE ONE TABLET BY MOUTH ONCE DAILY 30 Active Viagra 100 MG Orally Once a day prn 1 tablet as needed 10 Active MetFORMIN HCl ER 500 MG Orally twice a day 2 tablets 12h 30 Active Zetia 10 mg Orally Once a day 1 tablet 24h 09 Jul, 2016 30 day(s) Active Symbicort 160-4.5 MCG/ACT INHALE TWO PUFFS BY MOUTH TWICE DAILY IN THE MORNING AND EVENING Active Stiolto Respimat 2.5-2.5 MCG/ACT Inhalation Once a day 2 samples given 2 puffs Oct, Active Oxygen N/A 1 1/2 l at hs Once a day as directed 24h Oct, Active RESULTS No Results PROCEDURES Procedure Date Ordered Related Diagnosis Body Site CULTURE, BACTERIA, OTHER Oct 28, 2016 Office Visit, Est Pt., Level 3 Oct 28, 2016 IMMUNIZATIONS No Known Immunizations
--- OUTSIDE RECORDS SUMMARY | 2018-10-30 17:05 | XMS REPORT ---
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 Info Not Available Non Drug Allergy Problems Problem Type Condition ICD-9 Code Onset Dates Condition Status Problem Essential hypertension, benign 401.1 Active Problem Family history of malignant neoplasm, prostate V16.42 Active Problem Chronic airway obstruction, not elsewhere classified 496 Active Assessment Hyperinsulinemia 251.1 Active Assessment Overweight 278.02 Active Problem Umbilical hernia without mention of [...] Instructions Start Date End Date Status Dosage Viagra [facility] [address]-18 100 MG Orally Once a day prn Jul 12, 2015Aug 1 tablet as needed Hydrocodone-Acetaminophen [facility] [address]-60 10-325 MG February 15, 2015 1 tablet by Oral route 3 times per day PRN Symbicort [facility] [address]-35 160-4.5 mcg/actuation Dec 12, 2014 inhale 2 puffs by inhalation route 2 times per day in the morning and evening MetFORMIN HCl ER [facility] 53381175025 500 MG Orally Once a day 1 tablet at HS for 1 week then 1 tab BID Procedures Procedure Coding System Code Date Office Visit, Est Pt., Level 3 CPT-4 71396 Aug 13, 2015 [facility] VISIT ESTABLISHED PATIENT CPT-4 G0467 Aug 13, 2015 Vital Signs Date/Time: Aug 13, 2015 Temperature 98.1 F Weight 227 lbs Height 66 in BMI 36.63 Index Blood Pressure Diastolic 80 mmHg Blood Pressure Systolic 146 mmHg Cardiac Monitoring Heart Rate 72 bpm Results No Known Results Summary Purpose eClinicalWorks Submission
--- OUTSIDE RECORDS SUMMARY | 2018-10-30 17:05 | XMS REPORT ---
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 Role Phone JOSÉ LUIS RODRÍGUEZ Unavailable PROBLEMS Type Condition ICD9-CM Code URO14-TR Code Onset Dates Condition Status SNOMED Code Problem Chronic pain G89.29 Active 83860500 Problem Family history of diabetes mellitus Z83.3 Active 899198058 Problem Hypertriglyceridemia E78.1 Active 743838592 Problem History of MRSA infection Z86.14 Active 826614072 Problem Insomnia, unspecified type G47.00 Active 497840254 Problem Primary insomnia F51.01 Active 1257357 Problem Osteoarthritis M19.90 Active 064924579 Problem Hyperinsulinemia E16.1 Active 85863868 Problem Essential hypertension I10 Active 44322512 Problem Chronic obstructive pulmonary disease, unspecified COPD type J44.9 Active 20688608 ALLERGIES Unknown Allergies SOCIAL HISTORY No smoking Hx information available PLAN OF CARE VITAL SIGNS MEDICATIONS Medication Instructions Dosage Frequency Start Date End Date Duration Status Hydrocodone-Acetaminophen 10-325 MG Orally 4 times a day 1 tablet as needed for pain 6h Nov, 28 days Active RESULTS No Results PROCEDURES No Known procedures IMMUNIZATIONS No Known Immunizations
--- OUTSIDE RECORDS SUMMARY | 2018-10-30 17:06 | XMS REPORT | Continuity of Care Document ---
Author Author [facility] Address Unknown Phone Unavailable Allergies Active Description Code Type Severity Reaction Onset Reported/Identified Relationship to Patient Clinical Status Yes No Known Drug Allergies [id number] Drug Allergy Unknown N/A 03/21/2013 Medications There is no data. Problems Date Dx Coded Attending Type Code Diagnosis Diagnosed By 05/25/2012 JOSÉ LUIS RODRÍGUEZ APRN 401.1 ESSENTIAL HYPERTENSION BENIGN 05/25/2012 JOSÉ LUIS RODRÍGUEZ APRN 599.70 HEMATURIA 05/25/2012 JOSÉ LUIS RODRÍGUEZ APRN 723.1 neck pain 05/25/2012 JOSÉ LUIS RODRÍGUEZ APRN 780.79 FATIGUE 05/25/2012 JOSÉ LUIS RODRÍGUEZ APRN 786.09 difficulty breathing (dyspnea) 05/25/2012 NIXON RANKIN APRN 401.1 ESSENTIAL HYPERTENSION BENIGN 05/25/2012 NIXON RANKIN APRN 599.70 HEMATURIA 05/25/2012 NIXON RANKIN APRN 723.1 neck pain 05/25/2012 NIXON RANKIN APRN 780.79 FATIGUE 05/25/2012 NIXON RANKIN APRN 786.09 difficulty breathing (dyspnea) 05/25/2012 401.1 ESSENTIAL HYPERTENSION BENIGN 05/25/2012 599.70 HEMATURIA 05/25/2012 723.1 neck pain 05/25/2012 780.79 FATIGUE 05/25/2012 786.09 difficulty breathing (dyspnea) 05/25/2012 401.1 ESSENTIAL HYPERTENSION BENIGN 05/25/2012 599.70 HEMATURIA 05/25/2012 723.1 neck pain 05/25/2012 780.79 FATIGUE 05/25/2012 786.09 difficulty breathing (dyspnea) 05/25/2012 JOSÉ LUIS RODRÍGUEZ APRN 401.1 ESSENTIAL HYPERTENSION BENIGN 05/25/2012 JOSÉ LUIS RODRÍGUEZ APRN 599.70 HEMATURIA 05/25/2012 JOSÉ LUIS RODRÍGUEZ APRN 723.1 neck pain 05/25/2012 ANNE BARAHONA, JOSÉ LUIS S 780.79 FATIGUE 05/25/2012 ROLLY RODRÍGUEZ APRNNDA S 786.09 difficulty breathing (dyspnea) 05/25/2012 CAMILLE RODRÍGUEZ APRNA S 401.1 ESSENTIAL HYPERTENSION BENIGN 05/25/2012 ANNE BARAHONA, JOSÉ LUIS S 599.70 HEMATURIA 05/25/2012 CAMILLE RODRÍGUEZ APRNA S 723.1 NECK PAIN 05/25/2012 ANNE BARAHONA, JOSÉ LUIS S 780.79 FATIGUE 05/25/2012 ANNE BARAHONA, JOSÉ LUIS S 786.09 DIFFICULTY BREATHING (DYSPNEA) 05/25/2012 LIZETT LECHUGA MD 401.1 ESSENTIAL HYPERTENSION BENIGN 05/25/2012 LIZETT LECHUGA MD 599.70 HEMATURIA 05/25/2012 LIZETT LECHUGA MD 723.1 NECK PAIN 05/25/2012 LIZETT LECHUGA MD 780.79 FATIGUE 05/25/2012 LIZETT LECHUGA MD 786.09 DIFFICULTY BREATHING (DYSPNEA) 05/25/2012 NIXON RANKIN APRN 401.1 ESSENTIAL HYPERTENSION BENIGN 05/25/2012 NIXON RANKIN APRN 599.70 HEMATURIA 05/25/2012 NIXON RANKIN APRN 723.1 NECK PAIN 05/25/2012 NIXON RANKIN APRN 780.79 FATIGUE 05/25/2012 NIXON RANKIN APRN 786.09 DIFFICULTY BREATHING (DYSPNEA) 05/25/2012 JOSÉ LUIS RODRÍGUEZ APRN S 401.1 ESSENTIAL HYPERTENSION BENIGN 05/25/2012 ROLLY RODRÍGUEZ APRNNDA S 599.70 HEMATURIA 05/25/2012 ROLLY RODRÍGUEZ APRNNDA S 723.1 NECK PAIN 05/25/2012 ANNE BARAHONA JOSÉ LUIS S 780.79 FATIGUE 05/25/2012 ROLLY RODRÍGUEZ APRNNDA S 786.09 DIFFICULTY BREATHING (DYSPNEA) 05/25/2012 NIXON RANKIN APRN 401.1 ESSENTIAL HYPERTENSION BENIGN 05/25/2012 NIXON RANKIN APRN 599.70 HEMATURIA 05/25/2012 NIXON RANKIN APRN 723.1 NECK PAIN 05/25/2012 NIXON RANKIN APRN 780.79 FATIGUE 05/25/2012 KEELY COFFEE WEIGHER, NIXON T 786.09 DIFFICULTY BREATHING (DYSPNEA) 05/25/2012 KEELY BARAHONA, NIXON T 401.1 ESSENTIAL HYPERTENSION BENIGN 05/25/2012 NIXON RANKIN APRN T 599.70 HEMATURIA 05/25/2012 KEELY BARAHONA, NIXON T 723.1 NECK PAIN 05/25/2012 KEELY BARAHONA, NIXON T 780.79 FATIGUE 05/25/2012 NIXON RANKIN APRN T 786.09 DIFFICULTY BREATHING (DYSPNEA) 05/25/2012 CAMILLE RODRÍGUEZ APRNA S 401.1 ESSENTIAL HYPERTENSION BENIGN 05/25/2012 ANNE COFFEE WEIGHER, JOSÉ LUIS S 599.70 HEMATURIA 05/25/2012 ANNE COFFEE WEIGHER, JOSÉ LUIS S 723.1 NECK PAIN 05/25/2012 ANNE COFFEE WEIGHER, JOSÉ LUIS S 780.79 FATIGUE 05/25/2012 ANNE COFFEE WEIGHER, JOSÉ LUIS S 786.09 DIFFICULTY BREATHING (DYSPNEA) 05/25/2012 ANNE BARAHONA JOSÉ LUIS S 401.1 ESSENTIAL HYPERTENSION BENIGN 05/25/2012 ANNE BARAHONA JOSÉ LUIS S 599.70 HEMATURIA 05/25/2012 ANNE COFFEE WEIGHER, JOSÉ LUIS S 723.1 NECK PAIN 05/25/2012 ANNE BARAHONA, JOSÉ LUIS S 780.79 FATIGUE 05/25/2012 ANNE BARAHONA JOSÉ LUIS S 786.09 DIFFICULTY BREATHING (DYSPNEA) 05/25/2012 ANNE BARAHONA, JOSÉ LUIS S 401.1 ESSENTIAL HYPERTENSION BENIGN 05/25/2012 ANNE BARAHONA JOSÉ LUIS S 599.70 HEMATURIA 05/25/2012 ANNE BARAHONA JOSÉ LUIS S 723.1 NECK PAIN 05/25/2012 ANNE COFFEE WEIGHER, JOSÉ LUIS S 780.79 FATIGUE 05/25/2012 ANNE COFFEE WEIGHER, JOSÉ LUIS S 786.09 DIFFICULTY BREATHING (DYSPNEA) 05/25/2012 ANNE BARAHONA JOSÉ LUIS S 401.1 ESSENTIAL HYPERTENSION BENIGN 05/25/2012 ANNE BARAHONA, JOSÉ LUIS S 599.70 HEMATURIA 05/25/2012 ANNE BARAHONA, JOSÉ LUIS S 723.1 NECK PAIN 05/25/2012 ANNE BARAHONA JOSÉ LUIS S 780.79 FATIGUE 05/25/2012 ANNE BARAHONA JOSÉ LUIS S 786.09 DIFFICULTY BREATHING (DYSPNEA) 05/25/2012 ANNE JAINN, JOSÉ LUIS S 401.1 ESSENTIAL HYPERTENSION BENIGN 05/25/2012 ANNE BARAHONA, JOSÉ LUIS S 599.70 HEMATURIA 05/25/2012 ANNE COFFEE WEIGHER, JOSÉ LUIS S 723.1 NECK PAIN 05/25/2012 ROLLY RODRÍGUEZ APRNNDA S 780.79 FATIGUE 05/25/2012 ROLLY RODRÍGUEZ APRNNDA S 786.09 DIFFICULTY BREATHING (DYSPNEA) 05/25/2012 PENN DO, RAFIA K 401.1 ESSENTIAL HYPERTENSION BENIGN 05/25/2012 PENN DO, RAFIA K 599.70 HEMATURIA 05/25/2012 PENN DO, RAFIA K 723.1 NECK PAIN 05/25/2012 PENN DO, RAFIA K 780.79 FATIGUE 05/25/2012 PENN DO, RAFIA K 786.09 DIFFICULTY BREATHING (DYSPNEA) 05/25/2012 PENN DO, RAFIA K 401.1 ESSENTIAL HYPERTENSION BENIGN 05/25/2012 PENN DO, RAFIA K 599.70 HEMATURIA 05/25/2012 PENN DO, RAFIA K 723.1 NECK PAIN 05/25/2012 PENN DO, RAFIA K 780.79 FATIGUE 05/25/2012 PENN DO, RAFIA K 786.09 DIFFICULTY BREATHING (DYSPNEA) 05/25/2012 401.1 ESSENTIAL HYPERTENSION BENIGN 05/25/2012 599.70 HEMATURIA 05/25/2012 723.1 neck pain 05/25/2012 780.79 FATIGUE 05/25/2012 786.09 difficulty breathing (dyspnea) 06/21/2012 JOSÉ LUIS RODRÍGUEZ APRN S 496 CHRONIC AIRWAY OBSTRUCTION NOT ELSEWHERE CLASSIFIED 06/21/2012 NIXON RANKIN APRN 49Kenisha CHRONIC AIRWAY OBSTRUCTION NOT ELSEWHERE CLASSIFIED 06/21/2012 496 CHRONIC AIRWAY OBSTRUCTION NOT ELSEWHERE CLASSIFIED 06/21/2012 496 CHRONIC AIRWAY OBSTRUCTION NOT ELSEWHERE CLASSIFIED 06/21/2012 JOSÉ LUIS RODRÍGUEZ APRN S 496 CHRONIC AIRWAY OBSTRUCTION NOT ELSEWHERE CLASSIFIED 06/21/2012 CAMILLE RODRÍGUEZ APRNA S 496 CHRONIC AIRWAY OBSTRUCTION NOT ELSEWHERE CLASSIFIED 06/21/2012 LIZETT LECHUGA MD 496 CHRONIC AIRWAY OBSTRUCTION NOT ELSEWHERE CLASSIFIED 06/21/2012 NIXON RAKNIN APRN 496 CHRONIC AIRWAY OBSTRUCTION NOT ELSEWHERE CLASSIFIED 06/21/2012 ANNE COFFEE WEIGHER, JOSÉ LUIS S 496 CHRONIC AIRWAY OBSTRUCTION NOT ELSEWHERE CLASSIFIED 06/21/2012 NIXON RANKIN APRN 496 CHRONIC AIRWAY OBSTRUCTION NOT ELSEWHERE CLASSIFIED 06/21/2012 NIXON RANKIN APRN 496 CHRONIC AIRWAY OBSTRUCTION NOT ELSEWHERE CLASSIFIED 06/21/2012 ANNE COFFEE WEIGHER, JOSÉ LUIS S 496 CHRONIC AIRWAY OBSTRUCTION NOT ELSEWHERE CLASSIFIED 06/21/2012 ANNE COFFEE WEIGHER, JOSÉ LUIS S 496 CHRONIC AIRWAY OBSTRUCTION NOT ELSEWHERE CLASSIFIED 06/21/2012 ANNE COFFEE WEIGHER, JOSÉ LUIS S 496 CHRONIC AIRWAY OBSTRUCTION NOT ELSEWHERE CLASSIFIED 06/21/2012 ANNE COFFEE WEIGHER, JOSÉ LUIS S 496 CHRONIC AIRWAY OBSTRUCTION NOT ELSEWHERE CLASSIFIED 06/21/2012 ANNE COFFEE WEIGHER, JOSÉ LUIS S 496 CHRONIC AIRWAY OBSTRUCTION NOT ELSEWHERE CLASSIFIED 06/21/2012 PENN DO, RAFIA K 496 CHRONIC AIRWAY OBSTRUCTION NOT ELSEWHERE CLASSIFIED 06/21/2012 PENN DO, RAFIA K 496 CHRONIC AIRWAY OBSTRUCTION NOT ELSEWHERE CLASSIFIED 06/21/2012 496 CHRONIC AIRWAY OBSTRUCTION NOT ELSEWHERE CLASSIFIED 06/22/2012 Ot 327.26 SLEEP RELATED HYPOVENTILATION/HYPOXEMIA 06/22/2012 Ot 496 CHR AIRWAY OBSTRUCT NEC 06/22/2012 Ot 786.09 RESPIRATORY ABNORM NEC 08/24/2012 CAMILLE RODRÍGUEZ APRNA S 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 08/24/2012 NIXON RANKIN APRN 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 08/24/2012 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 08/24/2012 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 08/24/2012 JOSÉ LUIS RODRÍGUEZ APRN S 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 08/24/2012 CAMILLE RODRÍGUEZ APRNA S 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 08/24/2012 LIZETT LECHUGA MD 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 08/24/2012 NIXON RANKIN APRN 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 08/24/2012 JOSÉ LUIS RODRÍGUEZ APRN S 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 08/24/2012 NIXON RANKIN APRN 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 08/24/2012 NIXON RANKIN APRN 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 08/24/2012 ROLLY RODRÍGUEZ APRNNDA S 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 08/24/2012 ROLLY RODRÍGUEZ APRNNDA S 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 08/24/2012 ANNE BARAHONA, JOSÉ LUIS S 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 08/24/2012 ROLLY RODRÍGUEZ APRNNDA S 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 08/24/2012 ROLLY RODRÍGUEZ APRNNDA S 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 08/24/2012 PENN DO, RAFIA K 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 08/24/2012 PENN DO, RAFIA K 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 08/24/2012 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 12/29/2012 CAMILLE RODRÍGUEZ APRNA S 305.1 NONDEPENDENT TOBACCO USE DISORDER 12/29/2012 NIXON RANKIN APRN 305.1 NONDEPENDENT TOBACCO USE DISORDER 12/29/2012 305.1 NONDEPENDENT TOBACCO USE DISORDER 12/29/2012 305.1 NONDEPENDENT TOBACCO USE DISORDER 12/29/2012 CAMILLE RODRÍGUEZ APRNA S 305.1 NONDEPENDENT TOBACCO USE DISORDER 12/29/2012 CAMILLE RODRÍGUEZ APRNA S 305.1 NONDEPENDENT TOBACCO USE DISORDER 12/29/2012 LIZETT LECHUGA MD 305.1 NONDEPENDENT TOBACCO USE DISORDER 12/29/2012 NIXON RANKIN APRN 305.1 NONDEPENDENT TOBACCO USE DISORDER 12/29/2012 CAMILLE RODRÍGUEZ APRNA S 305.1 NONDEPENDENT TOBACCO USE DISORDER 12/29/2012 NIXON RANKIN APRN 305.1 NONDEPENDENT TOBACCO USE DISORDER 12/29/2012 NIXON RANKIN APRN 305.1 NONDEPENDENT TOBACCO USE DISORDER 12/29/2012 CAMILLE RODRÍGUEZ APRNA S 305.1 NONDEPENDENT TOBACCO USE DISORDER 12/29/2012 ROLLY RODRÍGUEZ APRNNDA S 305.1 NONDEPENDENT TOBACCO USE DISORDER 12/29/2012 ROLLY RODRÍGUEZ APRNNDA S 305.1 NONDEPENDENT TOBACCO USE DISORDER 12/29/2012 ANNE COFFEE WEIGHER, JOSÉ LUIS S 305.1 NONDEPENDENT TOBACCO USE DISORDER 12/29/2012 ANNE COFFEE WEIGHER, JOSÉ LUIS S 305.1 NONDEPENDENT TOBACCO USE DISORDER 12/29/2012 PENN DO, RAFIA K 305.1 NONDEPENDENT TOBACCO USE DISORDER 12/29/2012 PENN DO, RAFIA K 305.1 NONDEPENDENT TOBACCO USE DISORDER 02/03/2013 NIXON RANKIN APRN T 272.1 HYPERTRIGLYCERIDEMIA 02/03/2013 272.1 HYPERTRIGLYCERIDEMIA 02/03/2013 272.1 HYPERTRIGLYCERIDEMIA 02/03/2013 ANNE COFFEE WEIGHER, JOSÉ LUIS S 272.1 HYPERTRIGLYCERIDEMIA 02/03/2013 ANNE COFFEE WEIGHER, JOSÉ LUIS S 272.1 HYPERTRIGLYCERIDEMIA 02/03/2013 LIZETT LECHUGA MD 272.1 HYPERTRIGLYCERIDEMIA 02/03/2013 NIXON RANKIN APRN T 272.1 HYPERTRIGLYCERIDEMIA 02/03/2013 ANNE COFFEE WEIGHER, JOSÉ LUIS S 272.1 HYPERTRIGLYCERIDEMIA 02/03/2013 NIXON RANKIN APRN T 272.1 HYPERTRIGLYCERIDEMIA 02/03/2013 NIXON RANKIN APRN T 272.1 HYPERTRIGLYCERIDEMIA 02/03/2013 ANNE COFFEE WEIGHER, JOSÉ LUIS S 272.1 HYPERTRIGLYCERIDEMIA 02/03/2013 ANNE COFFEE WEIGHER, JOSÉ LUIS S 272.1 HYPERTRIGLYCERIDEMIA 02/03/2013 ANNE COFFEE WEIGHER, JOSÉ LUIS S 272.1 HYPERTRIGLYCERIDEMIA 02/03/2013 ANNE COFFEE WEIGHER, JOSÉ LUIS S 272.1 HYPERTRIGLYCERIDEMIA 02/03/2013 ANNE COFFEE WEIGHER, JOSÉ LUIS S 272.1 HYPERTRIGLYCERIDEMIA 02/03/2013 PENN DO, RAFIA K 272.1 HYPERTRIGLYCERIDEMIA 02/03/2013 PENN DO, RAFIA K 272.1 HYPERTRIGLYCERIDEMIA 03/07/2013 709.9 SKIN LESIONS 03/07/2013 709.9 SKIN LESIONS 03/07/2013 ANNE JAINN, JOSÉ LUIS S 709.9 SKIN LESIONS 03/07/2013 ANNE BARAHONA, JOSÉ LUIS S 709.9 SKIN LESIONS 03/07/2013 LIZETT LECHUGA MD 709.9 SKIN LESIONS 03/07/2013 NIXON RANKIN APRN 709.9 SKIN LESIONS 03/07/2013 ROLLY RODRÍGUEZ APRNNDA S 709.9 SKIN LESIONS 03/07/2013 NIXON RANKIN APRN 709.9 SKIN LESIONS 03/07/2013 NIXON RANKIN APRN 709.9 SKIN LESIONS 03/07/2013 ANNE COFFEE WEIGHER, JOSÉ LUIS S 709.9 SKIN LESIONS 03/07/2013 ANNE COFFEE WEIGHER, JOSÉ LUIS S 709.9 SKIN LESIONS 03/07/2013 ANNE COFFEE WEIGHER, JOSÉ LUIS S 709.9 SKIN LESIONS 03/07/2013 ANNE COFFEE WEIGHER, JOSÉ LUIS S 709.9 SKIN LESIONS 03/07/2013 ANNE COFFEE WEIGHER, JOSÉ LUIS S 709.9 SKIN LESIONS 03/07/2013 PENN DO, RAFIA K 709.9 SKIN LESIONS 03/07/2013 PENN DO, RAFIA K 709.9 SKIN LESIONS 03/24/2013 MARTIN HUMPHREYS, BOBO Lucio Ot 173.31 BASAL CELL CARCINOMA OF SKIN OF OTH UN 03/24/2013 MARTIN HUMPHREYS, BOBO Lucio Ot 305.1 TOBACCO USE DISORDER 03/24/2013 MARTIN HUMPHREYS, BOBO Lucio Ot 401.9 HYPERTENSION NOS 03/24/2013 MARTIN HUMPHREYS, BOBO Lucio Ot 496 CHR AIRWAY OBSTRUCT NEC 03/24/2013 MARTIN HUMPHREYS, BOBO Lucio Ot V58.69 OTH MED,LT,CURRENT USE 04/11/2013 173.91 BASAL CELL CARCINOMA OF SKIN SITE UNSPECIFIED 04/11/2013 ANNE BARAHONA, JOSÉ LUIS S 173.91 BASAL CELL CARCINOMA OF SKIN SITE UNSPECIFIED 04/11/2013 ANNE BARAHONA, JOSÉ LUIS S 173.91 BASAL CELL CARCINOMA OF SKIN SITE UNSPECIFIED 04/11/2013 ALEXANDREA HUMPHREYS, LIZETT 173.91 BASAL CELL CARCINOMA OF SKIN SITE UNSPECIFIED 04/11/2013 NIXON RANKIN APRN 173.91 BASAL CELL CARCINOMA OF SKIN SITE UNSPECIFIED 04/11/2013 ANNE BARAHONA, JOSÉ LUIS S 173.91 BASAL CELL CARCINOMA OF SKIN SITE UNSPECIFIED 04/11/2013 NIXON RANKIN APRN 173.91 BASAL CELL CARCINOMA OF SKIN SITE UNSPECIFIED 04/11/2013 NIXON RANKIN APRN 173.91 BASAL CELL CARCINOMA OF SKIN SITE UNSPECIFIED 04/11/2013 ANNE BARAHONA, JOSÉ LUIS S 173.91 BASAL CELL CARCINOMA OF SKIN SITE UNSPECIFIED 04/11/2013 ANNE BARAHONA, JOSÉ LUIS S 173.91 BASAL CELL CARCINOMA OF SKIN SITE UNSPECIFIED 04/11/2013 ANNE COFFEE WEIGHER, JOSÉ LUIS S 173.91 BASAL CELL CARCINOMA OF SKIN SITE UNSPECIFIED 04/11/2013 ANNE COFFEE WEIGHER, JOSÉ LUIS S 173.91 BASAL CELL CARCINOMA OF SKIN SITE UNSPECIFIED 04/11/2013 ANNE COFFEE WEIGHER, JOSÉ LUIS S 173.91 BASAL CELL CARCINOMA OF SKIN SITE UNSPECIFIED 04/11/2013 PENN DO, RAFIA K 173.91 BASAL CELL CARCINOMA OF SKIN SITE UNSPECIFIED 04/11/2013 PENN DO, RAFIA K 173.91 BASAL CELL CARCINOMA OF SKIN SITE UNSPECIFIED 05/06/2013 ANNE COFFEE WEIGHER, JOSÉ LUIS S 477.0 ALLERGIC RHINITIS DUE TO POLLEN 05/06/2013 ANNE COFFEE WEIGHERROLLY GrahamNDA S 553.1 UMBILICAL HERNIA WITHOUT OBSTRUCTION OR GANGRENE 05/06/2013 ANNE COFFEE WEIGHERROLLY GrahamNDA S 719.07 EDEMA FOOT 05/06/2013 ANNE COFFEE WEIGHERROLLY GrahamNDA S V18.0 FAMILY HISTORY OF DIABETES MELLITUS 05/06/2013 ROLLY RODRÍGUEZ APRNNDA S 477.0 ALLERGIC RHINITIS DUE TO POLLEN 05/06/2013 ANNE COFFEE WEIGHERROLLYJOSÉ LUIS S 553.1 UMBILICAL HERNIA WITHOUT OBSTRUCTION OR GANGRENE 05/06/2013 CAMILLE RODRÍGUEZ APRNA S 719.07 EDEMA FOOT 05/06/2013 ROLLY RODRÍGUEZ APRNNDA S V18.0 FAMILY HISTORY OF DIABETES MELLITUS 05/06/2013 LIZETT LECHUGA MD 477.0 ALLERGIC RHINITIS DUE TO POLLEN 05/06/2013 LIZETT LECHUGA MD 553.1 UMBILICAL HERNIA WITHOUT OBSTRUCTION OR GANGRENE 05/06/2013 LIZETT LECHUGA MD 719.07 EDEMA FOOT 05/06/2013 LIZETT LECHUGA MD V18.0 FAMILY HISTORY OF DIABETES MELLITUS 05/06/2013 NIXON RANKIN APRN 477.0 ALLERGIC RHINITIS DUE TO POLLEN 05/06/2013 NIXON RANKIN APRN 553.1 UMBILICAL HERNIA WITHOUT OBSTRUCTION OR GANGRENE 05/06/2013 NIXON RANKIN APRN 719.07 EDEMA FOOT 05/06/2013 NIXON RANKIN APRN V18.0 FAMILY HISTORY OF DIABETES MELLITUS 05/06/2013 JOSÉ LUIS RODRÍGUEZ APRN S 477.0 ALLERGIC RHINITIS DUE TO POLLEN 05/06/2013 ANNE COFFEE WEIGHER, JOSÉ LUIS S 553.1 UMBILICAL HERNIA WITHOUT OBSTRUCTION OR GANGRENE 05/06/2013 ANNE COFFEE WEIGHER, JOSÉ LUIS S 719.07 EDEMA FOOT 05/06/2013 ANNE COFFEE WEIGHER, JOSÉ LUIS S V18.0 FAMILY HISTORY OF DIABETES MELLITUS 05/06/2013 NIXON RANKIN APRN T 477.0 ALLERGIC RHINITIS DUE TO POLLEN 05/06/2013 NIXON RANKIN APRN T 553.1 UMBILICAL HERNIA WITHOUT OBSTRUCTION OR GANGRENE 05/06/2013 NIXON RANKIN APRN T 719.07 EDEMA FOOT 05/06/2013 NIXON RANKIN APRN T V18.0 FAMILY HISTORY OF DIABETES MELLITUS 05/06/2013 NIXON RANKIN APRN 477.0 ALLERGIC RHINITIS DUE TO POLLEN 05/06/2013 NIXON RANKIN APRN T 553.1 UMBILICAL HERNIA WITHOUT OBSTRUCTION OR GANGRENE 05/06/2013 NIXON RANKIN APRN T 719.07 EDEMA FOOT 05/06/2013 NIXON RANKIN APRN V18.0 FAMILY HISTORY OF DIABETES MELLITUS 05/06/2013 ANNE COFFEE WEIGHER, JOSÉ LUIS S 477.0 ALLERGIC RHINITIS DUE TO POLLEN 05/06/2013 ANNE COFFEE WEIGHER, JOSÉ LUIS S 553.1 UMBILICAL HERNIA WITHOUT OBSTRUCTION OR GANGRENE 05/06/2013 ANNE COFFEE WEIGHER, JOSÉ LUIS S 719.07 EDEMA FOOT 05/06/2013 ANNE COFFEE WEIGHER, JOSÉ LUIS S V18.0 FAMILY HISTORY OF DIABETES MELLITUS 05/06/2013 ANNE COFFEE WEIGHER, JOSÉ LUIS S 477.0 ALLERGIC RHINITIS DUE TO POLLEN 05/06/2013 ANNE COFFEE WEIGHER, JOSÉ LUIS S 553.1 UMBILICAL HERNIA WITHOUT OBSTRUCTION OR GANGRENE 05/06/2013 ANNE COFFEE WEIGHER, JOSÉ LUIS S 719.07 EDEMA FOOT 05/06/2013 ANNE COFFEE WEIGHER, JOSÉ LUIS S V18.0 FAMILY HISTORY OF DIABETES MELLITUS 05/06/2013 ANNE COFFEE WEIGHER, JOSÉ LUIS S 477.0 ALLERGIC RHINITIS DUE TO POLLEN 05/06/2013 ANNE COFFEE WEIGHER, JOSÉ LUIS S 553.1 UMBILICAL HERNIA WITHOUT OBSTRUCTION OR GANGRENE 05/06/2013 ANNE COFFEE WEIGHER, JOSÉ LUIS S 719.07 EDEMA FOOT 05/06/2013 ANNE COFFEE WEIGHER, JOSÉ LUIS S V18.0 FAMILY HISTORY OF DIABETES MELLITUS 05/06/2013 ANNE COFFEE WEIGHER, JOSÉ LUIS S 477.0 ALLERGIC RHINITIS DUE TO POLLEN 05/06/2013 ANNE COFFEE WEIGHER, JOSÉ LUIS S 553.1 UMBILICAL HERNIA WITHOUT OBSTRUCTION OR GANGRENE 05/06/2013 ANNE COFFEE WEIGHER, JOSÉ LUIS S 719.07 EDEMA FOOT 05/06/2013 ANNE COFFEE WEIGHER, JOSÉ LUIS S V18.0 FAMILY HISTORY OF DIABETES MELLITUS 05/06/2013 ANNE COFFEE WEIGHER, JOSÉ LUIS S 477.0 ALLERGIC RHINITIS DUE TO POLLEN 05/06/2013 ANNE COFFEE WEIGHER, JOSÉ LUIS S 553.1 UMBILICAL HERNIA WITHOUT OBSTRUCTION OR GANGRENE 05/06/2013 ANNE COFFEE WEIGHER, JOSÉ LUIS S 719.07 EDEMA FOOT 05/06/2013 ANNE COFFEE WEIGHER, JOSÉ LUIS S V18.0 FAMILY HISTORY OF DIABETES MELLITUS 05/06/2013 PENN DO, RAFIA K 477.0 ALLERGIC RHINITIS DUE TO POLLEN 05/06/2013 PENN DO, RAFIA K 553.1 UMBILICAL HERNIA WITHOUT OBSTRUCTION OR GANGRENE 05/06/2013 PENN DO, RAFIA K 719.07 EDEMA FOOT 05/06/2013 PENN DO, RFAIA K V18.0 FAMILY HISTORY OF DIABETES MELLITUS 05/06/2013 PENN DO, RAFIA K 477.0 ALLERGIC RHINITIS DUE TO POLLEN 05/06/2013 PENN DO, RAFIA K 553.1 UMBILICAL HERNIA WITHOUT OBSTRUCTION OR GANGRENE 05/06/2013 PENN DO, RAFIA K 719.07 EDEMA FOOT 05/06/2013 PENN DO, RAFIA K V18.0 FAMILY HISTORY OF DIABETES MELLITUS 09/19/2013 ROLLY RODRÍGUEZ APRNNDA S 338.29 CHRONIC PAIN 09/19/2013 LIZETT LECHUGA MD 338.29 CHRONIC PAIN 09/19/2013 NIXON RANKIN APRN 338.29 CHRONIC PAIN 09/19/2013 JOSÉ LUIS RODRÍGUEZ APRN 338.29 CHRONIC PAIN 09/19/2013 NIXON RANKIN APRN 338.29 CHRONIC PAIN 09/19/2013 NIXON RANKIN APRN 338.29 CHRONIC PAIN 09/19/2013 JOSÉ LUIS RODRÍGUEZ APRN S 338.29 CHRONIC PAIN 09/19/2013 ANNE COFFEE WEIGHER, JOSÉ LUIS S 338.29 CHRONIC PAIN 09/19/2013 ANNE COFFEE WEIGHER, JOSÉ LUIS S 338.29 CHRONIC PAIN 09/19/2013 ANNE COFFEE WEIGHER, JOSÉ LUIS S 338.29 CHRONIC PAIN 09/19/2013 ANNE COFFEE WEIGHER, JOSÉ LUIS S 338.29 CHRONIC PAIN 09/19/2013 PENN DO, RAFIA K 338.29 CHRONIC PAIN 09/19/2013 PENN DO, RAFIA K 338.29 CHRONIC PAIN 02/28/2014 LIZETT LECHUGA MD 702.8 OTHER SPECIFIED DERMATOSES 02/28/2014 NIXON RANKIN APRN 702.8 OTHER SPECIFIED DERMATOSES 02/28/2014 ROLLY RODRÍGUEZ APRNNDA S 702.8 OTHER SPECIFIED DERMATOSES 02/28/2014 NIXON RANKIN APRN 702.8 OTHER SPECIFIED DERMATOSES 02/28/2014 NIXON RANKIN APRN 702.8 OTHER SPECIFIED DERMATOSES 02/28/2014 ANNE BARAHONA JOSÉ LUIS S 702.8 OTHER SPECIFIED DERMATOSES 02/28/2014 ANNE BARAHONA JOSÉ LUIS S 702.8 OTHER SPECIFIED DERMATOSES 02/28/2014 ANNE COFFEE WEIGHER, JOSÉ LUIS S 702.8 OTHER SPECIFIED DERMATOSES 02/28/2014 ANNERIVERA JAINN, JOSÉ LUIS S 702.8 OTHER SPECIFIED DERMATOSES 02/28/2014 ANNE BARAHONA, JOSÉ LUIS S 702.8 OTHER SPECIFIED DERMATOSES 02/28/2014 PENN DO, RAFIA K 702.8 OTHER SPECIFIED DERMATOSES 02/28/2014 PENN DO, RAFIA K 702.8 OTHER SPECIFIED DERMATOSES 03/21/2014 NIXON RANKIN APRN V16.0 FAMILY HISTORY OF MALIGNANT NEOPLASM OF GASTROINTESTINAL TRACT 03/21/2014 NIXON RANKIN APRN V16.42 FAMILY HISTORY OF MALIGNANT NEOPLASM OF PROSTATE 03/21/2014 CAMILLE RODRÍGUEZ APRNA S V16.0 FAMILY HISTORY OF MALIGNANT NEOPLASM OF GASTROINTESTINAL TRACT 03/21/2014 CAMILLE RODRÍGUEZ APRNA S V16.42 FAMILY HISTORY OF MALIGNANT NEOPLASM OF PROSTATE 03/21/2014 NIXON RANKIN APRN V16.0 FAMILY HISTORY OF MALIGNANT NEOPLASM OF GASTROINTESTINAL TRACT 03/21/2014 NIXON RANKIN APRN V16.42 FAMILY HISTORY OF MALIGNANT NEOPLASM OF PROSTATE 03/21/2014 NIXON RANKIN APRN V16.0 FAMILY HISTORY OF MALIGNANT NEOPLASM OF GASTROINTESTINAL TRACT 03/21/2014 NIXON RANKIN APRN V16.42 FAMILY HISTORY OF MALIGNANT NEOPLASM OF PROSTATE 03/21/2014 ANNE COFFEE WEIGHER JOSÉ LUIS S V16.0 FAMILY HISTORY OF MALIGNANT NEOPLASM OF GASTROINTESTINAL TRACT 03/21/2014 ANNE COFFEE WEIGHER JOSÉ LUIS S V16.42 FAMILY HISTORY OF MALIGNANT NEOPLASM OF PROSTATE 03/21/2014 ANNE COFFEE WEIGHER JOSÉ LUIS S V16.0 FAMILY HISTORY OF MALIGNANT NEOPLASM OF GASTROINTESTINAL TRACT 03/21/2014 ANNE COFFEE WEIGHER, JOSÉ LUIS S V16.42 FAMILY HISTORY OF MALIGNANT NEOPLASM OF PROSTATE 03/21/2014 ANNE COFFEE WEIGHER JOSÉ LUIS S V16.0 FAMILY HISTORY OF MALIGNANT NEOPLASM OF GASTROINTESTINAL TRACT 03/21/2014 ANNE COFFEE WEIGHER JOSÉ LUIS S V16.42 FAMILY HISTORY OF MALIGNANT NEOPLASM OF PROSTATE 03/21/2014 ANNE JAINN JOSÉ LUIS S V16.0 FAMILY HISTORY OF MALIGNANT NEOPLASM OF GASTROINTESTINAL TRACT 03/21/2014 ANNE JAINN JOSÉ LUIS S V16.42 FAMILY HISTORY OF MALIGNANT NEOPLASM OF PROSTATE 03/21/2014 ANNE JAINN JOSÉ LUIS S V16.0 FAMILY HISTORY OF MALIGNANT NEOPLASM OF GASTROINTESTINAL TRACT 03/21/2014 ANNE BARAHONA JOSÉ LUIS S V16.42 FAMILY HISTORY OF MALIGNANT NEOPLASM OF PROSTATE 03/21/2014 PENN DO, RAFIA K V16.0 FAMILY HISTORY OF MALIGNANT NEOPLASM OF GASTROINTESTINAL TRACT 03/21/2014 PENN DO, RAFIA K V16.42 FAMILY HISTORY OF MALIGNANT NEOPLASM OF PROSTATE 03/21/2014 PENN DO, RAFIA K V16.0 FAMILY HISTORY OF MALIGNANT NEOPLASM OF GASTROINTESTINAL TRACT 03/21/2014 PENN DO, RAFIA K V16.42 FAMILY HISTORY OF MALIGNANT NEOPLASM OF PROSTATE 04/11/2014 NIXON RANKIN APRN 702.0 ACTINIC KERATOSIS 04/11/2014 NIXON RANKIN APRN 702.19 OTHER SEBORRHEIC KERATOSIS 04/11/2014 NIXON RANKIN APRN 702.0 ACTINIC KERATOSIS 04/11/2014 NIXON RANKIN APRN 702.19 OTHER SEBORRHEIC KERATOSIS 04/11/2014 CAMILLE RODRÍGUEZ APRNA S 702.0 ACTINIC KERATOSIS 04/11/2014 ANNE COFFEE WEIGHER, JOSÉ LUIS S 702.19 OTHER SEBORRHEIC KERATOSIS 04/11/2014 ANNE COFFEE WEIGHER, JOSÉ LUIS S 702.0 ACTINIC KERATOSIS 04/11/2014 ANNE COFFEE WEIGHER, JOSÉ LUIS S 702.19 OTHER SEBORRHEIC KERATOSIS 04/11/2014 ANNE COFFEE WEIGHER, JOSÉ LUIS S 702.0 ACTINIC KERATOSIS 04/11/2014 ANNE COFFEE WEIGHER, JOSÉ LUIS S 702.19 OTHER SEBORRHEIC KERATOSIS 04/11/2014 ANNE COFFEE WEIGHER, JOSÉ LUIS S 702.0 ACTINIC KERATOSIS 04/11/2014 ANNE COFFEE WEIGHER, JOSÉ LUIS S 702.19 OTHER SEBORRHEIC KERATOSIS 04/11/2014 ANNE COFFEE WEIGHER, JOSÉ LUIS S 702.0 ACTINIC KERATOSIS 04/11/2014 ANNE COFFEE WEIGHER, JOSÉ LUIS S 702.19 OTHER SEBORRHEIC KERATOSIS 04/11/2014 PENN DO, RAFIA K 702.0 ACTINIC KERATOSIS 04/11/2014 PENN DO, RAFIA K 702.19 OTHER SEBORRHEIC KERATOSIS 04/11/2014 PENN DO, RAFIA K 702.0 ACTINIC KERATOSIS 04/11/2014 PENN DO, RAFIA K 702.19 OTHER SEBORRHEIC KERATOSIS 09/11/2014 ANNE COFFEE WEIGHER, JOSÉ LUIS S 307.42 INSOMNIA, PSYCHOPHYSIOLOGICAL 09/11/2014 ANNE COFFEE WEIGHER, JOSÉ LUIS S 782.3 EDEMA 09/11/2014 ANNE COFFEE WEIGHER, JOSÉ LUIS S 307.42 INSOMNIA, PSYCHOPHYSIOLOGICAL 09/11/2014 ANNE COFFEE WEIGHER, JOSÉ LUIS S 782.3 EDEMA 09/11/2014 ANNE COFFEE WEIGHER, JOSÉ LUIS S 307.42 INSOMNIA, PSYCHOPHYSIOLOGICAL 09/11/2014 ANNE COFFEE WEIGHER, JOSÉ LUIS S 782.3 EDEMA 09/11/2014 PENN DO, RAFIA K 307.42 INSOMNIA, PSYCHOPHYSIOLOGICAL 09/11/2014 PENN DO, RAFIA K 782.3 EDEMA 09/11/2014 PENN DO, RAFIA K 307.42 INSOMNIA, PSYCHOPHYSIOLOGICAL 09/11/2014 PENN DO, RAFIA K 782.3 EDEMA 12/12/2014 JOSÉ LUIS RODRÍGUEZ APRN 780.79 FATIGUE 12/12/2014 RAFIA PENN DO K 780.79 FATIGUE 12/12/2014 RAFIA PENN DO 780.79 FATIGUE 02/06/2015 RAFIA PENN DO K 715.04 OSTEOARTHROSIS GENERALIZED INVOLVING HAND 02/06/2015 RAFIA PENN DO 719.43 PAIN- WRIST 06/04/2016 Ot 709.9 SKIN DISORDER NOS 06/04/2016 Ot V72.63 PRE- PROCEDURAL LABORATORY EXAMINATION 06/04/2016 Ot V74.8 SCREEN- BACTERIAL DIS NEC 06/04/2016 MARTIN HUMPHREYS, BOBO Lucio Ot E11.9 TYPE 2 DIABETES MELLITUS WITHOUT COMPLIC 06/04/2016 MARTIN HUMPHREYS, BOBO Lucio Ot L02.414 CUTANEOUS ABSCESS OF LEFT UPPER LIMB 06/05/2016 MARTIN HUMPHREYS, BOBO Lucio Ot E11.9 TYPE 2 DIABETES MELLITUS WITHOUT COMPLIC 06/05/2016 MARTIN HUMPHREYS, BOBO Lucio Ot L02.414 CUTANEOUS ABSCESS OF LEFT UPPER LIMB 06/19/2016 MARTIN HUMPHREYS, BOBO Lucio Ot E11.9 TYPE 2 DIABETES MELLITUS WITHOUT COMPLIC 06/19/2016 MARTIN HUMPHREYS, BOBO Lucio Ot L02.414 CUTANEOUS ABSCESS OF LEFT UPPER LIMB Procedures Code Description [place] [address] ROUTINE VENIPUNCTURE 01/24/2013 66947 CMP 01/24/2013 [id number] GFR CALC (RESULT ONLY) 01/24/2013 77521 LIPID PANEL 01/24/2013 Family Pr Nixon Rankin 01/25/2013 GENER BOBO SALAZAR 02/08/2013 05180 A1C (IN-HOUSE) 05/06/2013 34888 OXIMETRY - OVERNIGHT 09/13/2013 81052 ROUTINE VENIPUNCTURE 09/20/2013 01837 LIPID PANEL 09/20/2013 58017 OXIMETRY 09/22/2013 [facility]IT[facility] AMER[facility]OX DRUG SCREEN 03/02/2014 55405 ROUTINE VENIPUNCTURE 03/21/2014 [id number] GFR CALC (RESULT ONLY) 03/21/2014 75057 CMP 03/21/2014 41567 LIPID PANEL 03/21/2014 76825 PSA FREE AND TOTAL 03/21/2014 GENERAL S JOSEE CONSTANTINO 03/21/2014 62329 CRYOTHERAPY OF SKIN 04/11/2014 76963 [employer] 07/27/2014 53687 ROUTINE VENIPUNCTURE 09/27/2014 12751 URINE DRUG SCREEN (IN-HOUSE ) 09/27/2014 52306 LIPID PANEL 09/27/2014 [id number] GFR CALC (RESULT ONLY) 09/27/2014 47443 CMP 09/27/2014 58665 CBC 09/27/2014 84913 [employer] 12/13/2014 60961 LIPID PANEL 12/13/2014 02471 TESTOSTERONE TOTAL MALES 12/13/2014 99515 THERAPUTIC INJ SQ/IM 01/03/2015 29942 XRAY WRIST L COMP MIN 3 VIEWS 02/06/2015 Results Test Result Range Comp. Metabolic Panel (14) - 08/06/16 09:10 Glucose, Serum 104 mg/dL 65-99 BUN 18 mg/dL 8-27 Creatinine, Serum 0.84 mg/dL 0.76-1.27 eGFR If NonAfricn Am 93 mL/min/1.73 >59 eGFR If Africn Am 108 mL/min/1.73 >59 BUN/Creatinine Ratio 21 10-22 Sodium, Serum 138 mmol/L 134-144 Potassium, Serum 4.6 mmol/L 3.5-5.2 Chloride, Serum 98 mmol/L 97-108 Carbon Dioxide, Total 25 mmol/L 18-29 Calcium, Serum 9.0 mg/dL 8.6-10.2 Protein, Total, Serum 7.0 g/dL 6.0-8.5 Albumin, Serum 4.0 g/dL 3.6-4.8 Globulin, Total 3.0 g/dL 1.5-4.5 A/G Ratio 1.3 1.1-2.5 Bilirubin, Total 0.5 mg/dL 0.0-1.2 Alkaline Phosphatase, S 53 IU/L 39-117 AST (SGOT) 29 IU/L 0-40 ALT (SGPT) 38 IU/L 0-44 Lipid Panel - 08/06/16 09:10 Cholesterol, Total 263 mg/dL 100-199 Triglycerides 780 mg/dL 0-149 HDL Cholesterol 26 mg/dL >39 VLDL Cholesterol Lisandro Comment mg/dL 5-40 LDL Cholesterol Calc Comment mg/dL 0-99 Insulin - 08/06/16 09:10 Insulin 33.6 uIU/mL 2.6-24.9 Aerobic Bacterial Culture - 10/28/16 15:57 Aerobic Bacterial Culture Note Lipid Panel - 12/22/16 08:39 Cholesterol, Total 237 mg/dL 100-199 Triglycerides 637 mg/dL 0-149 HDL Cholesterol 22 mg/dL >39 VLDL Cholesterol Lisandro Comment mg/dL 5-40 LDL Cholesterol Calc Comment mg/dL 0-99 Comp. Metabolic Panel (14) - 05/25/17 10:41 Glucose, Serum 95 mg/dL 65-99 BUN 15 mg/dL 8-27 Creatinine, Serum 0.85 mg/dL 0.76-1.27 eGFR If NonAfricn Am 92 mL/min/1.73 >59 eGFR If Africn Am 106 mL/min/1.73 >59 BUN/Creatinine Ratio 18 10-24 Sodium, Serum 137 mmol/L 134-144 Potassium, Serum 4.4 mmol/L 3.5-5.2 Chloride, Serum 96 mmol/L 96-106 Carbon Dioxide, Total 26 mmol/L 18-29 Calcium, Serum 9.2 mg/dL 8.6-10.2 Protein, Total, Serum 7.3 g/dL 6.0-8.5 Albumin, Serum 4.3 g/dL 3.6-4.8 Globulin, Total 3.0 g/dL 1.5-4.5 A/G Ratio 1.4 1.2-2.2 Bilirubin, Total 0.5 mg/dL 0.0-1.2 Alkaline Phosphatase, S 51 IU/L 39-117 AST (SGOT) 27 IU/L 0-40 ALT (SGPT) 30 IU/L 0-44 Lipid Panel - 05/25/17 10:41 Cholesterol, Total 250 mg/dL 100-199 Triglycerides 673 mg/dL 0-149 HDL Cholesterol 24 mg/dL >39 VLDL Cholesterol Lisandro Comment mg/dL 5-40 LDL Cholesterol Calc Comment mg/dL 0-99 CMP - 09/10/17 08:07 Glucose, Serum 108 mg/dL 65-99 BUN 15 mg/dL 8-27 Creatinine, Serum 0.87 mg/dL 0.76-1.27 eGFR If NonAfricn Am 91 mL/min/1.73 >59 eGFR If Africn Am 105 mL/min/1.73 >59 BUN/Creatinine Ratio 17 10-24 Sodium, Serum 140 mmol/L 134-144 Potassium, Serum 4.6 mmol/L 3.5-5.2 Chloride, Serum 99 mmol/L 96-106 Carbon Dioxide, Total 25 mmol/L 18-29 Calcium, Serum 8.9 mg/dL 8.6-10.2 Protein, Total, Serum 6.8 g/dL 6.0-8.5 Albumin, Serum 3.8 g/dL 3.6-4.8 Globulin, Total 3.0 g/dL 1.5-4.5 A/G Ratio 1.3 1.2-2.2 Bilirubin, Total 1.1 mg/dL 0.0-1.2 Alkaline Phosphatase, S 52 IU/L 39-117 AST (SGOT) 29 IU/L 0-40 ALT (SGPT) 42 IU/L 0-44 Comp. Metabolic Panel (14) - 09/10/17 08:07 Glucose, Serum 108 mg/dL 65-99 BUN 15 mg/dL 8-27 Creatinine, Serum 0.87 mg/dL 0.76-1.27 eGFR If NonAfricn Am 91 mL/min/1.73 >59 eGFR If Africn Am 105 mL/min/1.73 >59 BUN/Creatinine Ratio 17 10-24 Sodium, Serum 140 mmol/L 134-144 Potassium, Serum 4.6 mmol/L 3.5-5.2 Chloride, Serum 99 mmol/L 96-106 Carbon Dioxide, Total 25 mmol/L 18-29 Calcium, Serum 8.9 mg/dL 8.6-10.2 Protein, Total, Serum 6.8 g/dL 6.0-8.5 Albumin, Serum 3.8 g/dL 3.6-4.8 Globulin, Total 3.0 g/dL 1.5-4.5 A/G Ratio 1.3 1.2-2.2 Bilirubin, Total 1.1 mg/dL 0.0-1.2 Alkaline Phosphatase, S 52 IU/L 39-117 AST (SGOT) 29 IU/L 0-40 ALT (SGPT) 42 IU/L 0-44 Lipid Panel - 09/10/17 08:07 Cholesterol, Total 150 mg/dL 100-199 Triglycerides 329 mg/dL 0-149 HDL Cholesterol 36 mg/dL >39 VLDL Cholesterol Lisandro 66 mg/dL 5-40 LDL Cholesterol Calc 48 mg/dL 0-99 PDM - 09 PANEL (PROFILE 1) - 05/12/18 09:26 Prescribed Drug 1 Hydrocodone NRG Creatinine 100.3 mg/dL > or=20.0 pH 5.56 4.5 - 9.0 Oxidant NEGATIVE mcg/mL <200 Amphetamines NEGATIVE ng/mL <500 medMATCH Amphetamines CONSISTENT NRG Benzodiazepines NEGATIVE ng/mL <100 medMATCH Benzodiazepines CONSISTENT NRG Marijuana Metabolite NEGATIVE ng/mL <20 medMATCH Marijuana Metab CONSISTENT NRG Cocaine Metabolite NEGATIVE ng/mL <150 medMATCH Cocaine Metab CONSISTENT NRG Opiates POSITIVE ng/mL <100 Oxycodone NEGATIVE ng/mL <100 medMATCH Oxycodone CONSISTENT NRG COMMENT NRG Codeine NEGATIVE ng/mL <50 medMATCH Codeine CONSISTENT NRG Hydrocodone 908 ng/mL <50 medMATCH Hydrocodone CONSISTENT NRG Hydromorphone 339 ng/mL <50 medMATCH Hydromorphone CONSISTENT NRG Morphine NEGATIVE ng/mL <50 medMATCH Morphine CONSISTENT NRG Norhydrocodone 522 ng/mL <50 medMATCH Norhydrocodone CONSISTENT NRG Prescribed Drug 2 Hydrocodone NRG Barbiturates NEGATIVE ng/mL <300 medMATCH Barbiturates CONSISTENT NRG Methadone Metabolite NEGATIVE ng/mL <100 medMATCH Methadone Metab CONSISTENT NRG Phencyclidine NEGATIVE ng/mL <25 medMATCH Phencyclidine CONSISTENT NRG TSH - 05/14/18 08:03 TSH 1.03 mIU/L 0.40-4.50 INSULIN LEVEL - 05/14/18 08:05 INSULIN 40.6 uIU/mL 2.0-19.6 Encounters ACCT No. Visit Date/Time Discharge Status Pt. Type Provider Facility Loc./Unit Complaint [id number] 02/06/2015 09:23:00 02/06/2015 23:59:59 [facility] Outpatient RAFIA PENN DO [id number] 01/03/2015 08:33:00 01/03/2015 23:59:59 [facility] Outpatient RAFIA PENN DO [id number] 12/13/2014 08:47:00 12/13/2014 23:59:59 [facility] Outpatient JOSÉ LUIS RODRÍGUEZ APRN [id number] 10/03/2014 09:28:00 10/03/2014 23:59:59 [facility] Outpatient JOSÉ LUIS RODRÍGUEZ APRN [id number] 09/27/2014 08:26:00 09/27/2014 23:59:59 [facility] Outpatient JOSÉ LUIS RODRÍGUEZ APRN [id number] 07/25/2014 10:45:00 07/25/2014 23:59:59 [facility] Outpatient JOSÉ LUIS RODRÍGUEZ APRN S [id number] 05/02/2014 08:52:00 05/02/2014 23:59:59 [facility] Outpatient JOSÉ LUIS RODRÍGUEZ APRN S [id number] 04/11/2014 13:41:00 04/11/2014 23:59:59 [facility] Outpatient NIXON RANKIN APRN [id number] 04/11/2014 13:41:00 04/11/2014 23:59:59 [facility] Outpatient NIXON RANKIN APRN [id number] 03/21/2014 14:38:00 03/21/2014 23:59:59 [facility] Outpatient NIXON RANKIN APRN [id number] 02/28/2014 09:44:00 02/28/2014 23:59:59 [facility] Outpatient ALEXANDREA HUMPHREYS, LIZETT [id number] 09/20/2013 09:55:00 09/20/2013 23:59:59 [facility] Outpatient JOSÉ LUIS RODRÍGUEZ APRN [id number] 05/06/2013 08:58:00 05/06/2013 23:59:59 [facility] Outpatient JOSÉ LUIS RODRÍGUEZ APRN S [id number] 05/06/2013 08:58:00 05/06/2013 23:59:59 [facility] Outpatient JOSÉ LUIS RODRÍGUEZ APRN S [id number] 03/07/2013 14:28:00 03/07/2013 23:59:59 [facility] Outpatient [id number] 02/07/2013 16:01:00 02/07/2013 23:59:59 [facility] Outpatient NIXON RANKIN APRN [id number] 01/24/2013 08:16:00 01/24/2013 23:59:59 [facility] Outpatient JOSÉ LUIS RODRÍGUEZ APRN S [id number] 08/24/2012 15:17:00 08/24/2012 23:59:59 CLS Outpatient [id number] 04/11/2013 16:08:00 Document Registration [id number] 10/31/2016 13:05:00 Document Registration [id number] 05/26/2017 09:09:00 Document Registration [id number] 09/30/2017 09:51:00 09/30/2017 23:59:59 CLS Preadtiffanie SOLO MD, ESPARZA-DELILAH [facility] RAD R93.8 ABNORMAL ULTRASOUND [id number] 06/04/2016 13:02:00 06/04/2016 18:43:00 DIS Outpatient BOBO SALAZAR MD [facility] [id number] 03/24/2013 08:19:00 03/24/2013 11:45:00 DIS Outpatient BOBO SALAZAR MD [facility] [id number] 03/21/2013 10:58:00 Document Registration [id number] 06/21/2012 20:14:00 Document Registration [id number] 10/19/2018 08:00:00 10/19/2018 23:59:59 CLS Outpatient JOSÉ LUIS RODRÍGUEZ APRN [facility] [id number] 05/14/2018 08:20:00 Document Registration [id number] 05/12/2018 09:00:00 Document Registration [id number] 09/10/2017 08:00:00 Document Registration [id number] 08/07/2016 18:05:00 Document Registration [id number] 12/23/2016 08:36:00 Document Registration [id number] 09/11/2017 08:06:00 Document Registration
[2018-10-30] MEDS ORDERED: EPINEPHrine INJECTION 1 MG/ML AMP ONE (17:22)
[2018-10-30] MEDS ORDERED: NS IV 1000 ML 1,000 ML ONE (17:22)
[2018-10-30] MEDS ORDERED: FAMOTIDINE 20MG/2ML IV (PEPCID) ONE (17:23)
[2018-10-30] MEDS: FAMOTIDINE 20MG/2ML IV (PEPCID) IVP SCH (17:25)
[2018-10-30] MEDS ORDERED: EPINEPHrine INJECTION 1 MG/ML AMP IM ONE (17:30)
[2018-10-30] MEDS ORDERED: diphenhydrAMINE 25 MG TAB (BENADRYL) PO ONE ×2 (17:32→17:45)
--- OUTSIDE RECORDS SUMMARY | 2018-10-30 17:43 | XMS REPORT | Continuity of Care Document ---
Author Author [facility] Address Unknown Phone Unavailable Allergies Active Description Code Type Severity Reaction Onset Reported/Identified Relationship to Patient Clinical Status Yes No Known Drug Allergies [id number] Drug Allergy Unknown N/A 03/21/2013 Medications There [...] NIXON RANKIN APRN 780.79 FATIGUE 05/25/2012 KEELY BRAND MARKETING SPECIALIST, NIXON T 786.09 DIFFICULTY BREATHING (DYSPNEA) 05/25/2012 KEELY BARAHONA, NIXON T 401.1 ESSENTIAL HYPERTENSION BENIGN 05/25/2012 NIXON RANKIN APRN T 599.70 HEMATURIA 05/25/2012 KEELY BARAHONA, NIXON T 723.1 NECK PAIN 05/25/2012 KEELY BARAHONA, NIXON T 780.79 FATIGUE 05/25/2012 NIXON RANKIN APRN T 786.09 DIFFICULTY BREATHING (DYSPNEA) 05/25/2012 CAMILLE RODRÍGUEZ APRNA S 401.1 ESSENTIAL HYPERTENSION BENIGN 05/25/2012 ANNE BRAND MARKETING SPECIALIST, JOSÉ LUIS S 599.70 HEMATURIA 05/25/2012 ANNE BRAND MARKETING SPECIALIST, JOSÉ LUIS S 723.1 NECK PAIN 05/25/2012 ANNE BRAND MARKETING SPECIALIST, JOSÉ LUIS S 780.79 FATIGUE 05/25/2012 ANNE BRAND MARKETING SPECIALIST, JOSÉ LUIS S 786.09 DIFFICULTY BREATHING (DYSPNEA) 05/25/2012 ANNE BARAHONA JOSÉ LUIS S 401.1 ESSENTIAL HYPERTENSION BENIGN 05/25/2012 ANNE BARAHONA JOSÉ LUIS S 599.70 HEMATURIA 05/25/2012 ANNE BRAND MARKETING SPECIALIST, JOSÉ LUIS S 723.1 NECK PAIN 05/25/2012 ANNE BARAHONA, JOSÉ LUIS S 780.79 FATIGUE 05/25/2012 ANNE BARAHONA JOSÉ LUIS S 786.09 DIFFICULTY BREATHING (DYSPNEA) 05/25/2012 ANNE BARAHONA, JOSÉ LUIS S 401.1 ESSENTIAL HYPERTENSION BENIGN 05/25/2012 ANNE BARAHONA JOSÉ LUIS S 599.70 HEMATURIA 05/25/2012 ANNE BARAHONA JOSÉ LUIS S 723.1 NECK PAIN 05/25/2012 ANNE BRAND MARKETING SPECIALIST, JOSÉ LUIS S 780.79 FATIGUE 05/25/2012 ANNE BRAND MARKETING SPECIALIST, JOSÉ LUIS S 786.09 DIFFICULTY BREATHING (DYSPNEA) [...] JOSÉ LUIS S 599.70 HEMATURIA 05/25/2012 ANNE BRAND MARKETING SPECIALIST, JOSÉ LUIS S 723.1 NECK PAIN 05/25/2012 [...] AIRWAY OBSTRUCTION NOT ELSEWHERE CLASSIFIED 06/21/2012 ANNE BRAND MARKETING SPECIALIST, JOSÉ LUIS S 496 CHRONIC AIRWAY OBSTRUCTION NOT ELSEWHERE CLASSIFIED 06/21/2012 NIXON RANKIN APRN 496 CHRONIC AIRWAY OBSTRUCTION NOT ELSEWHERE CLASSIFIED 06/21/2012 NIXON RANKIN APRN 496 CHRONIC AIRWAY OBSTRUCTION NOT ELSEWHERE CLASSIFIED 06/21/2012 ANNE BRAND MARKETING SPECIALIST, JOSÉ LUIS S 496 CHRONIC AIRWAY OBSTRUCTION NOT ELSEWHERE CLASSIFIED 06/21/2012 ANNE BRAND MARKETING SPECIALIST, JOSÉ LUIS S 496 CHRONIC AIRWAY OBSTRUCTION NOT ELSEWHERE CLASSIFIED 06/21/2012 ANNE BRAND MARKETING SPECIALIST, JOSÉ LUIS S 496 CHRONIC AIRWAY OBSTRUCTION NOT ELSEWHERE CLASSIFIED 06/21/2012 ANNE BRAND MARKETING SPECIALIST, JOSÉ LUIS S 496 CHRONIC AIRWAY OBSTRUCTION NOT ELSEWHERE CLASSIFIED 06/21/2012 ANNE BRAND MARKETING SPECIALIST, JOSÉ LUIS S 496 CHRONIC AIRWAY OBSTRUCTION [...] 305.1 NONDEPENDENT TOBACCO USE DISORDER 12/29/2012 CAMILLE RDORÍGUEZ APRNA S 305.1 NONDEPENDENT TOBACCO USE DISORDER [...] 305.1 NONDEPENDENT TOBACCO USE DISORDER 12/29/2012 ANNE BRAND MARKETING SPECIALIST, JOSÉ LUIS S 305.1 NONDEPENDENT TOBACCO USE DISORDER 12/29/2012 ANNE BRAND MARKETING SPECIALIST, JOSÉ LUIS S 305.1 NONDEPENDENT TOBACCO USE DISORDER 12/29/2012 PENN DO, RAFIA K 305.1 NONDEPENDENT TOBACCO USE DISORDER 12/29/2012 PENN DO, RAFIA K 305.1 NONDEPENDENT TOBACCO USE DISORDER 02/03/2013 NIXON RANKIN APRN T 272.1 HYPERTRIGLYCERIDEMIA 02/03/2013 272.1 HYPERTRIGLYCERIDEMIA 02/03/2013 272.1 HYPERTRIGLYCERIDEMIA 02/03/2013 ANNE BRAND MARKETING SPECIALIST, JOSÉ LUIS S 272.1 HYPERTRIGLYCERIDEMIA 02/03/2013 ANNE BRAND MARKETING SPECIALIST, JOSÉ LUIS S 272.1 HYPERTRIGLYCERIDEMIA 02/03/2013 LIZETT LECHUGA MD 272.1 HYPERTRIGLYCERIDEMIA 02/03/2013 NIXON RANKIN APRN T 272.1 HYPERTRIGLYCERIDEMIA 02/03/2013 ANNE BRAND MARKETING SPECIALIST, JOSÉ LUIS S 272.1 HYPERTRIGLYCERIDEMIA 02/03/2013 NIXON RANKIN APRN T 272.1 HYPERTRIGLYCERIDEMIA 02/03/2013 NIXON RANKIN APRN T 272.1 HYPERTRIGLYCERIDEMIA 02/03/2013 ANNE BRAND MARKETING SPECIALIST, JOSÉ LUIS S 272.1 HYPERTRIGLYCERIDEMIA 02/03/2013 ANNE BRAND MARKETING SPECIALIST, JOSÉ LUIS S 272.1 HYPERTRIGLYCERIDEMIA 02/03/2013 ANNE BRAND MARKETING SPECIALIST, JOSÉ LUIS S 272.1 HYPERTRIGLYCERIDEMIA 02/03/2013 ANNE BRAND MARKETING SPECIALIST, JOSÉ LUIS S 272.1 HYPERTRIGLYCERIDEMIA 02/03/2013 ANNE BRAND MARKETING SPECIALIST, JOSÉ LUIS S 272.1 HYPERTRIGLYCERIDEMIA 02/03/2013 PENN [...] RANKIN APRN 709.9 SKIN LESIONS 03/07/2013 ANNE BRAND MARKETING SPECIALIST, JOSÉ LUIS S 709.9 SKIN LESIONS 03/07/2013 ANNE BRAND MARKETING SPECIALIST, JOSÉ LUIS S 709.9 SKIN LESIONS 03/07/2013 ANNE BRAND MARKETING SPECIALIST, JOSÉ LUIS S 709.9 SKIN LESIONS 03/07/2013 ANNE BRAND MARKETING SPECIALIST, JOSÉ LUIS S 709.9 SKIN LESIONS 03/07/2013 ANNE BRAND MARKETING SPECIALIST, JOSÉ LUIS S 709.9 SKIN LESIONS 03/07/2013 [...] CARCINOMA OF SKIN SITE UNSPECIFIED 04/11/2013 ANNE BRAND MARKETING SPECIALIST, JOSÉ LUIS S 173.91 BASAL CELL CARCINOMA OF SKIN SITE UNSPECIFIED 04/11/2013 ANNE BRAND MARKETING SPECIALIST, JOSÉ LUIS S 173.91 BASAL CELL CARCINOMA OF SKIN SITE UNSPECIFIED 04/11/2013 ANNE BRAND MARKETING SPECIALIST, JOSÉ LUIS S 173.91 BASAL CELL CARCINOMA OF SKIN SITE UNSPECIFIED 04/11/2013 PENN DO, RAFIA K 173.91 BASAL CELL CARCINOMA OF SKIN SITE UNSPECIFIED 04/11/2013 PENN DO, RAFIA K 173.91 BASAL CELL CARCINOMA OF SKIN SITE UNSPECIFIED 05/06/2013 ANNE BRAND MARKETING SPECIALIST, JOSÉ LUIS S 477.0 ALLERGIC RHINITIS DUE TO POLLEN 05/06/2013 ANNE BRAND MARKETING SPECIALISTROLLY GrahamNDA S 553.1 UMBILICAL HERNIA WITHOUT OBSTRUCTION OR GANGRENE 05/06/2013 ANNE BRAND MARKETING SPECIALISTROLLY GrahamNDA S 719.07 EDEMA FOOT 05/06/2013 ANNE BRAND MARKETING SPECIALISTROLLY GrahamNDA S V18.0 FAMILY HISTORY OF DIABETES MELLITUS 05/06/2013 ROLLY RODRÍGUEZ APRNNDA S 477.0 ALLERGIC RHINITIS DUE TO POLLEN 05/06/2013 ANNE BRAND MARKETING SPECIALISTROLLYJOSÉ LUIS S 553.1 UMBILICAL HERNIA WITHOUT OBSTRUCTION [...] ALLERGIC RHINITIS DUE TO POLLEN 05/06/2013 ANNE BRAND MARKETING SPECIALIST, JOSÉ LUIS S 553.1 UMBILICAL HERNIA WITHOUT OBSTRUCTION OR GANGRENE 05/06/2013 ANNE BRAND MARKETING SPECIALIST, JOSÉ LUIS S 719.07 EDEMA FOOT 05/06/2013 ANNE BRAND MARKETING SPECIALIST, JOSÉ LUIS S V18.0 FAMILY HISTORY OF [...] FAMILY HISTORY OF DIABETES MELLITUS 05/06/2013 ANNE BRAND MARKETING SPECIALIST, JOSÉ LUIS S 477.0 ALLERGIC RHINITIS DUE TO POLLEN 05/06/2013 ANNE BRAND MARKETING SPECIALIST, JOSÉ LUIS S 553.1 UMBILICAL HERNIA WITHOUT OBSTRUCTION OR GANGRENE 05/06/2013 ANNE BRAND MARKETING SPECIALIST, JOSÉ LUIS S 719.07 EDEMA FOOT 05/06/2013 ANNE BRAND MARKETING SPECIALIST, JOSÉ LUIS S V18.0 FAMILY HISTORY OF DIABETES MELLITUS 05/06/2013 ANNE BRAND MARKETING SPECIALIST, JOSÉ LUIS S 477.0 ALLERGIC RHINITIS DUE TO POLLEN 05/06/2013 ANNE BRAND MARKETING SPECIALIST, JOSÉ LUIS S 553.1 UMBILICAL HERNIA WITHOUT OBSTRUCTION OR GANGRENE 05/06/2013 ANNE BRAND MARKETING SPECIALIST, JOSÉ LUIS S 719.07 EDEMA FOOT 05/06/2013 ANNE BRAND MARKETING SPECIALIST, JOSÉ LUIS S V18.0 FAMILY HISTORY OF DIABETES MELLITUS 05/06/2013 ANNE BRAND MARKETING SPECIALIST, JOSÉ LUIS S 477.0 ALLERGIC RHINITIS DUE TO POLLEN 05/06/2013 ANNE BRAND MARKETING SPECIALIST, JOSÉ LUIS S 553.1 UMBILICAL HERNIA WITHOUT OBSTRUCTION OR GANGRENE 05/06/2013 ANNE BRAND MARKETING SPECIALIST, JOSÉ LUIS S 719.07 EDEMA FOOT 05/06/2013 ANNE BRAND MARKETING SPECIALIST, JOSÉ LUIS S V18.0 FAMILY HISTORY OF DIABETES MELLITUS 05/06/2013 ANNE BRAND MARKETING SPECIALIST, JOSÉ LUIS S 477.0 ALLERGIC RHINITIS DUE TO POLLEN 05/06/2013 ANNE BRAND MARKETING SPECIALIST, JOSÉ LUIS S 553.1 UMBILICAL HERNIA WITHOUT OBSTRUCTION OR GANGRENE 05/06/2013 ANNE BRAND MARKETING SPECIALIST, JOSÉ LUIS S 719.07 EDEMA FOOT 05/06/2013 ANNE BRAND MARKETING SPECIALIST, JOSÉ LUIS S V18.0 FAMILY HISTORY OF DIABETES MELLITUS 05/06/2013 ANNE BRAND MARKETING SPECIALIST, JOSÉ LUIS S 477.0 ALLERGIC RHINITIS DUE TO POLLEN 05/06/2013 ANNE BRAND MARKETING SPECIALIST, JOSÉ LUIS S 553.1 UMBILICAL HERNIA WITHOUT OBSTRUCTION OR GANGRENE 05/06/2013 ANNE BRAND MARKETING SPECIALIST, JOSÉ LUIS S 719.07 EDEMA FOOT 05/06/2013 ANNE BRAND MARKETING SPECIALIST, JOSÉ LUIS S V18.0 FAMILY HISTORY OF [...] FAMILY HISTORY OF DIABETES MELLITUS 09/19/2013 ROLLY RORDÍGUEZ APRNNDA S 338.29 CHRONIC PAIN 09/19/2013 LIZETT LECHUGA MD 338.29 CHRONIC PAIN 09/19/2013 NIXON RANKIN APRN 338.29 CHRONIC PAIN 09/19/2013 JOSÉ LUIS RODRÍGUEZ APRN 338.29 CHRONIC PAIN 09/19/2013 NIXON RANKIN APRN 338.29 CHRONIC PAIN 09/19/2013 NIXON RANKIN APRN 338.29 CHRONIC PAIN 09/19/2013 JOSÉ LUIS RODRÍGUEZ APRN S 338.29 CHRONIC PAIN 09/19/2013 ANNE BRAND MARKETING SPECIALIST, JOSÉ LUIS S 338.29 CHRONIC PAIN 09/19/2013 ANNE BRAND MARKETING SPECIALIST, JOSÉ LUIS S 338.29 CHRONIC PAIN 09/19/2013 ANNE BRAND MARKETING SPECIALIST, JOSÉ LUIS S 338.29 CHRONIC PAIN 09/19/2013 ANNE BRAND MARKETING SPECIALIST, JOSÉ LUIS S 338.29 CHRONIC PAIN 09/19/2013 [...] S 702.8 OTHER SPECIFIED DERMATOSES 02/28/2014 ANNE BRAND MARKETING SPECIALIST, JOSÉ LUIS S 702.8 OTHER SPECIFIED DERMATOSES [...] OF MALIGNANT NEOPLASM OF PROSTATE 03/21/2014 ANNE BRAND MARKETING SPECIALIST JOSÉ LUIS S V16.0 FAMILY HISTORY OF MALIGNANT NEOPLASM OF GASTROINTESTINAL TRACT 03/21/2014 ANNE BRAND MARKETING SPECIALIST JOSÉ LUIS S V16.42 FAMILY HISTORY OF MALIGNANT NEOPLASM OF PROSTATE 03/21/2014 ANNE BRAND MARKETING SPECIALIST JOSÉ LUIS S V16.0 FAMILY HISTORY OF MALIGNANT NEOPLASM OF GASTROINTESTINAL TRACT 03/21/2014 ANNE BRAND MARKETING SPECIALIST, JOSÉ LUIS S V16.42 FAMILY HISTORY OF MALIGNANT NEOPLASM OF PROSTATE 03/21/2014 ANNE BRAND MARKETING SPECIALIST JOSÉ LUIS S V16.0 FAMILY HISTORY OF MALIGNANT NEOPLASM OF GASTROINTESTINAL TRACT 03/21/2014 ANNE BRAND MARKETING SPECIALIST JOSÉ LUIS S V16.42 FAMILY HISTORY OF [...] APRNA S 702.0 ACTINIC KERATOSIS 04/11/2014 ANNE BRAND MARKETING SPECIALIST, JOSÉ LUIS S 702.19 OTHER SEBORRHEIC KERATOSIS 04/11/2014 ANNE BRAND MARKETING SPECIALIST, JOSÉ LUIS S 702.0 ACTINIC KERATOSIS 04/11/2014 ANNE BRAND MARKETING SPECIALIST, JOSÉ LUIS S 702.19 OTHER SEBORRHEIC KERATOSIS 04/11/2014 ANNE BRAND MARKETING SPECIALIST, JOSÉ LUIS S 702.0 ACTINIC KERATOSIS 04/11/2014 ANNE BRAND MARKETING SPECIALIST, JOSÉ LUIS S 702.19 OTHER SEBORRHEIC KERATOSIS 04/11/2014 ANNE BRAND MARKETING SPECIALIST, JOSÉ LUIS S 702.0 ACTINIC KERATOSIS 04/11/2014 ANNE BRAND MARKETING SPECIALIST, JOSÉ LUIS S 702.19 OTHER SEBORRHEIC KERATOSIS 04/11/2014 ANNE BRAND MARKETING SPECIALIST, JOSÉ LUIS S 702.0 ACTINIC KERATOSIS 04/11/2014 ANNE BRAND MARKETING SPECIALIST, JOSÉ LUIS S 702.19 OTHER SEBORRHEIC KERATOSIS 04/11/2014 PENN DO, RAFIA K 702.0 ACTINIC KERATOSIS 04/11/2014 PENN DO, RAFIA K 702.19 OTHER SEBORRHEIC KERATOSIS 04/11/2014 PENN DO, RAFIA K 702.0 ACTINIC KERATOSIS 04/11/2014 PENN DO, RAFIA K 702.19 OTHER SEBORRHEIC KERATOSIS 09/11/2014 ANNE BRAND MARKETING SPECIALIST, JOSÉ LUIS S 307.42 INSOMNIA, PSYCHOPHYSIOLOGICAL 09/11/2014 ANNE BRAND MARKETING SPECIALIST, JOSÉ LUIS S 782.3 EDEMA 09/11/2014 ANNE BRAND MARKETING SPECIALIST, JOSÉ LUIS S 307.42 INSOMNIA, PSYCHOPHYSIOLOGICAL 09/11/2014 ANNE BRAND MARKETING SPECIALIST, JOSÉ LUIS S 782.3 EDEMA 09/11/2014 ANNE BRAND MARKETING SPECIALIST, JOSÉ LUIS S 307.42 INSOMNIA, PSYCHOPHYSIOLOGICAL 09/11/2014 ANNE BRAND MARKETING SPECIALIST, JOSÉ LUIS S 782.3 EDEMA 09/11/2014 PENN DO, RAFIA K 307.42 INSOMNIA, PSYCHOPHYSIOLOGICAL 09/11/2014 PENN DO, RAFIA K 782.3 EDEMA 09/11/2014 EPNN DO, RAFIA K 307.42 INSOMNIA, PSYCHOPHYSIOLOGICAL 09/11/2014 [...] Procedures Code Description [place] [address] ROUTINE VENIPUNCTURE 01/24/2013 02244 CMP 01/24/2013 [id number] GFR CALC (RESULT ONLY) 01/24/2013 79692 LIPID PANEL 01/24/2013 Family Pr Nixon Rankin 01/25/2013 GENER BOBO SALAZAR 02/08/2013 85397 A1C (IN-HOUSE) 05/06/2013 80785 OXIMETRY - OVERNIGHT 09/13/2013 66028 ROUTINE VENIPUNCTURE 09/20/2013 34766 LIPID PANEL 09/20/2013 61581 OXIMETRY 09/22/2013 AMERITOX AMERITOX DRUG SCREEN 03/02/2014 78536 ROUTINE VENIPUNCTURE 03/21/2014 [id number] GFR CALC (RESULT ONLY) 03/21/2014 16517 CMP 03/21/2014 76510 LIPID PANEL 03/21/2014 50622 PSA FREE AND TOTAL 03/21/2014 GENERAL S JOSEE CONSTANTINO 03/21/2014 41803 CRYOTHERAPY OF SKIN 04/11/2014 66047 [employer] 07/27/2014 56544 ROUTINE VENIPUNCTURE 09/27/2014 33729 URINE DRUG SCREEN (IN-HOUSE ) 09/27/2014 53391 LIPID PANEL 09/27/2014 [id number] GFR CALC (RESULT ONLY) 09/27/2014 09975 CMP 09/27/2014 11119 CBC 09/27/2014 87299 [employer] 12/13/2014 94797 LIPID PANEL 12/13/2014 94323 TESTOSTERONE TOTAL MALES 12/13/2014 88959 THERAPUTIC INJ SQ/IM 01/03/2015 97689 XRAY WRIST L COMP MIN 3 VIEWS [...] Status Pt. Type Provider Facility Loc./Unit Complaint [id number] 02/06/2015 09:23:00 02/06/2015 23:59:59 [facility] Outpatient RAFIA PENN DO [id number] 01/03/2015 08:33:00 01/03/2015 23:59:59 [facility] Outpatient RAFIA PENN DO [id number] 12/13/2014 08:47:00 12/13/2014 23:59:59 [facility] Outpatient JOSÉ LUIS RODRÍGUEZ APRN [id number] 10/03/2014 09:28:00 10/03/2014 23:59:59 [facility] Outpatient JOSÉ LUIS RODRÍGUEZ APRN [id number] 09/27/2014 08:26:00 09/27/2014 23:59:59 [facility] Outpatient JOSÉ LUIS RODRÍGUEZ APRN [id number] 07/25/2014 10:45:00 07/25/2014 23:59:59 [facility] Outpatient JOSÉ LUIS RODRÍGUEZ APRN S [id number] 05/02/2014 08:52:00 05/02/2014 23:59:59 [facility] Outpatient JOSÉ LUIS RODRÍGUEZ APRN S [id number] 04/11/2014 13:41:00 04/11/2014 23:59:59 [facility] Outpatient NIXON RANKIN APRN [id number] 04/11/2014 13:41:00 04/11/2014 23:59:59 [facility] Outpatient NIXON RANKIN APRN [id number] 03/21/2014 14:38:00 03/21/2014 23:59:59 [facility] Outpatient NIXON RANKIN APRN [id number] 02/28/2014 09:44:00 02/28/2014 23:59:59 [facility] Outpatient ALEXANDREA HUMPHREYS, LIZETT [id number] 09/20/2013 09:55:00 09/20/2013 23:59:59 [facility] Outpatient JOSÉ LUIS RODRÍGUEZ APRN [id number] 05/06/2013 08:58:00 05/06/2013 23:59:59 [facility] Outpatient JOSÉ LUIS RODRÍGUEZ APRN S [id number] 05/06/2013 08:58:00 05/06/2013 23:59:59 [facility]LS Outpatient JOSÉ LUIS RODRÍGUEZ APRN S [id number] 03/07/2013 14:28:00 03/07/2013 23:59:59 [facility] Outpatient [id number] 02/07/2013 16:01:00 02/07/2013 23:59:59 [facility] Outpatient NIXON RANKIN APRN [id number] 01/24/2013 08:16:00 01/24/2013 23:59:59 [facility] Outpatient JOSÉ LUIS RODRÍGUEZ APRN S [id number] 08/24/2012 15:17:00 08/24/2012 23:59:59 [facility] Outpatient [id number] 04/11/2013 16:08:00 Document Registration [id number] 10/31/2016 13:05:00 Document Registration [id number] 05/26/2017 09:09:00 Document Registration [id number] 09/30/2017 09:51:00 09/30/2017 23:59:59 CLS Preadtiffanie SOLO MD, ESPARZA-DELILAH [facility] RAD R93.8 ABNORMAL ULTRASOUND [id number] 06/04/2016 13:02:00 06/04/2016 18:43:00 DIS Outpatient BOBO SALAAZR MD [facility] [id number] 03/24/2013 08:19:00 03/24/2013 11:45:00 DIS Outpatient BOBO SALAZAR MD [facility] [id number] 03/21/2013 10:58:00 Document Registration [id number] 06/21/2012 20:14:00 Document Registration [id number] 10/19/2018 08:00:00 10/19/2018 23:59:59 CLS Outpatient JOSÉ LUIS RODRÍGUEZ APRN [facility] [place] [id number] 05/14/2018 08:20:00 Document Registration [id number] 05/12/2018 09:00:00 Document Registration [id number] 09/10/2017 08:00:00 Document Registration [id number] 08/07/2016 18:05:00 Document Registration [id number] 12/23/2016 08:36:00 Document Registration [id number] 09/11/2017 08:06:00 Document Registration
[2018-10-30] MEDS: NS IV 1000 ML 1,000 ML IV SCH (18:30)
[2018-10-30] MEDS ORDERED: ACETAMINOPHEN 325 MG TABLET PO PRN (18:30)
[2018-10-30] MEDS ORDERED: diphenhydrAMINE 25 MG TAB (BENADRYL) PO PRN (18:30)
[2018-10-30] MEDS ORDERED: NS (IVPB) 250 ML ONE (19:57)
[2018-10-30] MEDS ORDERED: AZITHROMYCIN 500 MG (ZITHROMAX) VIAL ONE (19:58)
[2018-10-30] MEDS ORDERED: FAMOTIDINE 20MG/2ML IV (PEPCID) IVP SCH (21:00)
[2018-10-31] VITALS: BP 150/75
[2018-10-31] MEDS: methylPREDNISolone 125 MG (Solu-MEDROL) VIAL IVP SCH ×4 (00:10→17:55)
[2018-10-31 04:00] VITALS: BP 163/89
[2018-10-31] MEDS ORDERED: diphenhydrAMINE 25 MG TAB (BENADRYL) PO PRN (05:45)
[2018-10-31 06:07] LABS: BASOPHILS % (AUTO) 0 % (0-10); EOSINOPHILS % (AUTO) 0 % (0-10); HEMATOCRIT 46 % (40-54); HEMOGLOBIN 15.5 G/DL (13.3-17.7); LYMPHOCYTES # (AUTO) 1.3 X 10^3 (1.0-4.0); LYMPHOCYTES % (AUTO) 13 % (12-44); MEAN CORPUSCULAR HEMOGLOBIN 30 PG (25-34); MEAN CORPUSCULAR HGB CONC 33 G/DL (32-36); MEAN CORPUSCULAR VOLUME 88 FL (80-99); MEAN PLATELET VOLUME 9.3 FL (7.4-10.4); MONOCYTES # (AUTO) 0.1 X 10^3 (0.0-1.0); MONOCYTES % (AUTO) 1 % (0-12); NEUTROPHILS % (AUTO) 85 % (42-75); PLATELET COUNT 246 10^3/uL (130-400); RED BLOOD COUNT 5.25 10^6/uL (4.35-5.85); RED CELL DISTRIBUTION WIDTH 14.2 % (10.0-14.5); WHITE BLOOD COUNT 9.4 10^3/uL (4.3-11.0)
--- NOTE | 2018-10-31 06:11 | History & Physicial (CHS) ---
HPI History of Present Illness: 68-year-old male presents to [facility] emergency department during the afternoon of October 30, 2018 with reported chest discomfort and shortness of breath. Duration of illness has not been acute bit more over the last several days. He does have COPD and does report a shortness of breath is slightly worse. He initially presented to ED thinking perhaps he had a heart attack. Source: patient Exam Limitations: clinical condition Date seen by provider: Oct 31, 2018 Time Seen by Provider: 06:30 Attending Physician Erik Michael MD PCP Terri Adamson DO Consult Date of Admission Oct 30, 2018 at 17:00 Home Medications Home Medications Reviewed patient Home Medication Reconciliation performed by pharmacy medication reconciliations industrial safety and health technician and/or nursing. Patients Allergies have been reviewed. Allergies Coded Allergies: ceftriaxone (Verified Allergy, Intermediate, ITCHING, 10/30/18) YLW-Dhphho-Fpvfdn Hx Patient Social History Alcohol Use: Occasionally Uses Recreational Drug Use: No Smoking Status: Former Smoker Recent Foreign Travel: No Contact w/other who traveled: No Recent Hopitalizations: No Recent Infectious Disease Expo: No Physical Abuse Screen: No Sexual Abuse: No Immunizations Up To Date Tetanus Booster (TDap): Unknown Review of Systems (CHC) Constitutional: see HPI Reviewed Test Results Reviewed Test Results Lab Laboratory Tests Test 10/30/18 15:58 10/31/18 00:30 10/31/18 05:51 Range/Units White Blood Count 7.1 9.4 4.3-11.0 10^3/uL Red Blood Count 5.16 5.25 4.35-5.85 10^6/uL Hemoglobin 15.2 15.5 13.3-17.7 G/DL Hematocrit 46 46 40-54 % Mean Corpuscular Volume 89 88 80-99 FL Mean Corpuscular Hemoglobin 30 30 25-34 PG Mean Corpuscular Hemoglobin Concent 33 33 32-36 G/DL Red Cell Distribution Width 14.1 14.2 10.0-14.5 % Platelet Count 235 246 130-400 10^3/uL Mean Platelet Volume 9.4 9.3 7.4-10.4 FL Neutrophils (%) (Auto) 50 85 H 42-75 % Lymphocytes (%) (Auto) 33 13 12-44 % Monocytes (%) (Auto) 14 H 1 0-12 % Eosinophils (%) (Auto) 3 0 0-10 % Basophils (%) (Auto) 0 0 0-10 % Neutrophils # (Auto) 3.5 8.0 H 1.8-7.8 X 10^3 Lymphocytes # (Auto) 2.4 1.3 1.0-4.0 X 10^3 Monocytes # (Auto) 1.0 0.1 0.0-1.0 X 10^3 Eosinophils # (Auto) 0.2 0.0 0.0-0.3 10^3/uL Basophils # (Auto) 0.0 0.0 0.0-0.1 10^3/uL Prothrombin Time 13.0 12.2-14.7 SEC INR Comment 1.0 0.8-1.4 Activated Partial Thromboplast Time 32 24-35 SEC Sodium Level 139 135-145 MMOL/L Potassium Level 3.8 3.6-5.0 MMOL/L Chloride Level 103 98-107 MMOL/L Carbon Dioxide Level 22 21-32 MMOL/L Anion Gap 14 5-14 MMOL/L Blood Urea Nitrogen 17 7-18 MG/DL Creatinine 0.80 0.60-1.30 MG/DL Estimat Glomerular Filtration Rate > 60 BUN/Creatinine Ratio 21 Glucose Level 124 H 70-105 MG/DL Calcium Level 9.2 8.5-10.1 MG/DL Corrected Calcium 9.1 8.5-10.1 MG/DL Magnesium Level 2.1 1.8-2.4 MG/DL Total Bilirubin 0.5 0.1-1.0 MG/DL Aspartate Amino Transf (AST/SGOT) 31 5-34 U/L Alanine Aminotransferase (ALT/SGPT) 40 0-55 U/L Alkaline Phosphatase 45 40-136 U/L Myoglobin 64.4 10.0-92.0 NG/ML Troponin I < 0.30 < 0.30 <0.30 NG/ML Total Protein 7.5 6.4-8.2 GM/DL Albumin 4.1 3.2-4.5 GM/DL Radiology NAME: ELOISA WILKINSON [facility] REC#: [id number] PT STATUS: REG ER : 1950 PHYSICIAN: SARAHI BURK MD ADMIT DATE: 10/30/18/ER Signed Date of Exam: 10/30/18 CHEST 1 VIEW, AP/PA ONLY INDICATION: Chest pain radiating to both arms. TIME OF EXAM: 04:19 p.m. FINDINGS: Heart size is normal. There is some minimal infiltrate in the left base partially obscuring the left heart border. Otherwise, the lungs are clear. No effusion or pneumothorax is seen. IMPRESSION: Patchy left basilar infiltrate or atelectasis. Dictated by: Dictated on workstation # [id number] Dict: 10/30/18 1627 Trans: 10/30/181657 Interpreted by: PENELOPE LANE MD Electronically signed by: PENELOPE LANE MD 10/30/18 1658 Physical Exam-(CHC) Physical Exam Vital Signs VS - Last 72 Hours, by Label 10/30/18 10/30/18 10/30/18 10/30/18 15:50 15:50 17:39 18:16 Temp 99.4 Pulse 106 78 Resp 25 20 B/P (MAP) 177/90 (119) 157/77 (103) Pulse Ox 93 94 95 95 O2 Delivery Room Air Nasal Cannula Nasal Cannula Nasal Cannula O2 Flow Rate 2.00 2.00 2.00 10/30/18 10/30/18 10/30/18 10/30/18 19:00 19:00 19:15 19:30 Pulse 110 88 83 84 B/P (MAP) 172/92 (118) 134/69 (90) 163/84 (110) Pulse Ox 94 94 94 10/30/18 10/30/18 10/30/18 10/30/18 19:45 20:10 20:15 20:45 Pulse 79 88 85 B/P (MAP) 150/82 (104) 172/80 (110) 161/79 (106) Pulse Ox 91 96 91 93 O2 Delivery Nasal Cannula O2 Flow Rate 2.00 10/30/18 10/30/18 10/31/18 10/31/18 21:45 22:45 00:00 01:00 Temp 97.5 Pulse 74 85 71 72 Resp 16 B/P (MAP) 155/88 (110) 153/66 (95) 150/75 (100) Pulse Ox 93 95 96 O2 Delivery Nasal Cannula O2 Flow Rate 2.00 10/31/18 10/31/18 10/31/18 04:00 07:00 08:21 Temp 98.0 98.0 Pulse 70 94 102 Resp 16 20 B/P (MAP) 163/89 (113) 165/77 (106) Pulse Ox 95 93 O2 Delivery Nasal Cannula Nasal Cannula O2 Flow Rate 2.00 2.00 Capillary Refill : Less Than 3 Seconds General Appearance: no apparent distress Eyes: Bilateral Eye Normal Inspection Neck: non-tender, supple Respiratory: chest non-tender, lungs clear, no respiratory distress Cardiovascular: regular rate, rhythm Gastrointestinal: soft Rectal: deferred Assessment/Plan Assessment/Plan Admission Dx 1. Left-sided infiltrates suspect pneumonia 2. COPD exacerbation 3. Chest pain most likely associated with number 1 Admission Status: Inpatient Order (span 2 midnights) Reason for Inpatient Admission: Further IV antibiotic Rocephin Assessment & Plan 1. Left-sided infiltrates suspect pneumonia -Patient has been admitted for IV Rocephin 2. COPD exacerbation -Patient to be maintained on his home medications -Oxygen by nasal cannula if needed -Solu-Medrol 3. Chest pain most likely associated with number 1 Clinical Quality Measures DVT/VTE Risk/Contraindication: Risk Factor Score Per Nursin RFS Level Per Nursing on Admit: 3=High ERIK MICHAEL MD Oct 31, 2018 06:11
[2018-10-31] MEDS: diphenhydrAMINE 25 MG TAB (BENADRYL) PO SCH ×2 (06:22→17:56)
[2018-10-31 06:28] LABS: ALANINE AMINOTRANSFERASE 39 U/L (0-55); ALBUMIN 3.9 GM/DL (3.2-4.5); ALKALINE PHOSPHATASE 44 U/L (40-136); BILIRUBIN,TOTAL 0.5 MG/DL (0.1-1.0); BUN/CREATININE RATIO 18; CALCIUM 8.9 MG/DL (8.5-10.1); CARBON DIOXIDE 21 MMOL/L (21-32); CHLORIDE 105 MMOL/L (98-107); CHOLESTEROL 232 MG/DL (< 200); CREATININE SERUM 0.79 MG/DL (0.60-1.30); GFR ESTIMATED > 60; GLUCOSE 173 MG/DL (70-105); HDL CHOLESTEROL 45 MG/DL (40-60); POTASSIUM 4.3 MMOL/L (3.6-5.0); SODIUM 139 MMOL/L (135-145); TOTAL PROTEIN 7.3 GM/DL (6.4-8.2); TRIGLYCERIDES 141 MG/DL (<150); VLDL CHOLESTEROL 28 MG/DL (5-40)
[2018-10-31 08:21] VITALS: BP 165/77
[2018-10-31] MEDS ORDERED: FLU QUADRIvalent (5+ YOA) 2018-2019 (AFLURIA) 0.5 ML IM ONE (09:00)
--- NOTE | 2018-10-31 09:11 | Diagnostic Imaging Report ---
INDICATION: COPD COMPARISON: 10/30/2018 at 4:19 PM FINDINGS: A single view of the chest demonstrates interstitial infiltrates bilaterally and unchanged. These are likely chronic. Underlying acute infiltrate not excluded. The heart is prominent without pulmonary edema. There is no pneumothorax or effusion. Osseous structures are age-appropriate. IMPRESSION: Likely chronic infiltrates. Followup recommended to exclude underlying acute process. Dictated by: Dictated on workstation # [id number]
[2018-10-31] MEDS: FAMOTIDINE 20MG/2ML IV (PEPCID) IVP SCH (09:57)
[2018-10-31] MEDS: NS IV 1000 ML 1,000 ML IV SCH (09:59)
[2018-10-31 11:54] VITALS: BP 152/76
[2018-10-31 16:00] VITALS: BP 162/82
[2018-10-31] MEDS ORDERED: AZITHROMYCIN INJECTION 500 MG in NS (IVPB) 250 ML IV SCH (17:00)
[2018-10-31 19:40] VITALS: BP 137/72
[2018-11-01] MEDS: NS IV 1000 ML 1,000 ML IV SCH
[2018-11-01 00:05] VITALS: BP 140/73
[2018-11-01 04:01] VITALS: BP 132/69
[2018-11-01] MEDS: methylPREDNISolone 125 MG (Solu-MEDROL) VIAL IVP SCH ×3 (06:08→12:38)
[2018-11-01 08:00] VITALS: BP 177/85
[2018-11-01 09:06] VITALS: BP 177/85
[2018-11-01] MEDS: FAMOTIDINE 20MG/2ML IV (PEPCID) IVP SCH (09:08)
[2018-11-01] MEDS ORDERED: PRD10T PO (11:00)
[2018-11-01] MEDS ORDERED: AZIT250T12 PO (12:04)
--- NOTE | 2018-11-01 12:17 | Discharge Instructions ---
Discharge [facility] Discharge Medications New, Converted or Re-Newed RX: Transmitted to Pharmacy Patient Instructions Goal/Follow Up Appt: Follow up with Cleo Swartz APRN on 11/03 at 1:20 pm. Patient Instructions: Use your oxygen at all times until your follow up appointment with Cleo. Return to [facility] For: Fever, worsening shortness of breath Activity & Diet Discharge Diet: ADA Diet Activity as Tolerated: Yes Orders-Post D/C & Referrals Pneu Vac Indicated: Yes Copy Copies To 1: BROOK[place]N Garcia BETHANY N MD Nov 01, 2018 12:11
[2018-11-01 12:39] VITALS: BP 144/71
[2018-11-01 13:15] VITALS: BP 144/71
--- NOTE | 2018-11-01 20:58 | Discharge Summary ---
Diagnosis/Chief Complaint Date of Admission Oct 30, 2018 at 17:00 Date of Discharge Nov 01, 2018 at 13:20 Admission Diagnosis Admission Diagnosis 1. Left-sided infiltrates suspect pneumonia 2. COPD exacerbation 3. Chest pain most likely associated with number 1 Discharge Diagnosis 1. Left-sided infiltrates suspect pneumonia- Xray read as likely chronic findings- will need follow-up to ensure no underlying process, discharged on azithromycin 2. COPD exacerbation- discharged with prednisone taper, on continuous supplemental oxygen (was only on intermittently prior to admit, will need re- eval at follow-up visit) 3. Chest pain most likely associated with number 1- troponin neg x 3, no acute EKG changes Chief Complaint/HPI Chief Complaint/HPI 68-year-old male presents to [facility] emergency department during the afternoon of October 30, 2018 with reported chest discomfort and shortness of breath. Duration of illness has not been acute bit more over the last several days. He does have COPD and does report a shortness of breath is slightly worse. He initially presented to ED thinking perhaps he had a heart attack. Discharge Summary-Simple/Stand Consultations Discharge Physical Examination Allergies: Coded Allergies: ceftriaxone (Verified Allergy, Intermediate, ITCHING, 10/30/18) Vitals & I&Os Vital Sign - Last 12Hours Date Time Temp Pulse Resp B/P (MAP) Pulse Ox O2 Delivery O2 Flow Rate FiO2 11/01/18 13:15 79 20 144/71 93 Nasal Cannula 2.00 11/01/18 12:39 99.3 Intake and Output 11/01/18 00:00 Intake Total 1180 ml Output Total 1450 ml Balance -270 ml General Appearance: Alert, No Acute Distress Respiratory: Clear to Auscultation, Normal Air Movement Cardiovascular: Regular Rate, No Murmurs Neuro: Normal Speech Psych/Mental Status: Mental Status NL Hospital Course See final discharge diagnosis. Labs Laboratory Tests Test 10/31/18 00:30 10/31/18 05:51 Range/Units Troponin I < 0.30 < 0.30 <0.30 NG/ML White Blood Count 9.4 4.3-11.0 10^3/uL Red Blood Count 5.25 4.35-5.85 10^6/uL Hemoglobin 15.5 13.3-17.7 G/DL Hematocrit 46 40-54 % Mean Corpuscular Volume 88 80-99 FL Mean Corpuscular Hemoglobin 30 25-34 PG Mean Corpuscular Hemoglobin Concent 33 32-36 G/DL Red Cell Distribution Width 14.2 10.0-14.5 % Platelet Count 246 130-400 10^3/uL Mean Platelet Volume 9.3 7.4-10.4 FL Neutrophils (%) (Auto) 85 H 42-75 % Lymphocytes (%) (Auto) 13 12-44 % Monocytes (%) (Auto) 1 0-12 % Eosinophils (%) (Auto) 0 0-10 % Basophils (%) (Auto) 0 0-10 % Neutrophils # (Auto) 8.0 H 1.8-7.8 X 10^3 Lymphocytes # (Auto) 1.3 1.0-4.0 X 10^3 Monocytes # (Auto) 0.1 0.0-1.0 X 10^3 Eosinophils # (Auto) 0.0 0.0-0.3 10^3/uL Basophils # (Auto) 0.0 0.0-0.1 10^3/uL Sodium Level 139 135-145 MMOL/L Potassium Level 4.3 3.6-5.0 MMOL/L Chloride Level 105 98-107 MMOL/L Carbon Dioxide Level 21 21-32 MMOL/L Anion Gap 13 5-14 MMOL/L Blood Urea Nitrogen 14 7-18 MG/DL Creatinine 0.79 0.60-1.30 MG/DL Estimat Glomerular Filtration Rate > 60 BUN/Creatinine Ratio 18 Glucose Level 173 H 70-105 MG/DL Calcium Level 8.9 8.5-10.1 MG/DL Corrected Calcium 9.0 8.5-10.1 MG/DL Total Bilirubin 0.5 0.1-1.0 MG/DL Aspartate Amino Transf (AST/SGOT) 26 5-34 U/L Alanine Aminotransferase (ALT/SGPT) 39 0-55 U/L Alkaline Phosphatase 44 40-136 U/L Total Protein 7.3 6.4-8.2 GM/DL Albumin 3.9 3.2-4.5 GM/DL Triglycerides Level 141 <150 MG/DL Cholesterol Level 232 H < 200 MG/DL LDL Cholesterol Direct 161 H 1-129 MG/DL VLDL Cholesterol 28 5-40 MG/DL HDL Cholesterol 45 40-60 MG/DL Radiology Reviewed NAME: ELOISA [facility]SON [facility] REC#: [id number] PT STATUS: REG ER : 1950 PHYSICIAN: SARAHI BURK MD ADMIT DATE: 10/30/18/ER Signed Date of Exam: 10/30/18 CHEST 1 VIEW, AP/PA ONLY INDICATION: Chest pain radiating to both arms. TIME OF EXAM: 04:19 p.m. FINDINGS: Heart size is normal. There is some minimal infiltrate in the left base partially obscuring the left heart border. Otherwise, the lungs are clear. No effusion or pneumothorax is seen. IMPRESSION: Patchy left basilar infiltrate or atelectasis. Dictated by: Dictated on workstation # [id number] Dict: 10/30/18 1627 Trans: 10/30/18 1658 Interpreted by: PENELOPE LANE MD Electronically signed by: PENELOPE LANE MD 10/30/18 1658 Discharge Instructions to patient/family Please see electronic discharge instructions given to patient. Discharge Medications Reviewed and agree with Discharge Medication list on patient's Discharge Instruction sheet Clinical Quality Measures DVT/VTE Risk/Contraindication: Risk Factor Score Per Nursin RFS Level Per Nursing on Admit: 3=High Copy Copies To 1: BROOKLYN Garcia BETHANY N MD Nov 01, 2018 20:58
--- OUTSIDE RECORDS SUMMARY | 2018-11-05 12:16 | XMS REPORT ---
Author Author JOSÉ LUIS RODRÍGUEZ Organization [facility] [facility] Address [address] [place] [address] Care Team Providers Care Government Program Manager Name Role Phone JOSÉ LUIS RODRÍGUEZ Unavailable PROBLEMS Type Condition ICD9-CM Code GLS48-KF Code Onset Dates Condition Status SNOMED Code Problem Hypertriglyceridemia E78.1 Active 027372734 Problem Hyperinsulinemia E16.1 Active 06943032 Problem Family history of diabetes mellitus Z83.3 Active 453879199 Problem History of MRSA infection Z86.14 Active 886569097 Problem Chronic pain G89.29 Active 13875781 Problem Dysthymia F34.1 Active 60480614 Problem Insomnia, unspecified type G47.00 Active 415878582 Problem Chronic obstructive pulmonary disease, unspecified COPD type J44.9 Active 65641580 Problem Osteoarthritis M19.90 Active 734704440 Problem Primary insomnia F51.01 Active 0179612 Problem Essential hypertension I10 Active 00876603 ALLERGIES No Information ENCOUNTERS Encounter Location Date Diagnosis [place] [id number] [place] [address] 39239- 8605 Nov, [facility] [place] [facility] [id number] [place] [address] 72293- 7560 Nov, [place] [address] [place] [id number] [place] [address] 74830- 5538 Oct, Pneumonia of left lower lobe due to infectious organism J18.1 and Chronic obstructive pulmonary disease, unspecified COPD type J44.9 [place] [address] [place] [id number] [place] [address] 54065- 8772 Oct, Hypertriglyceridemia E78.1 [place] [id number] [place] [address] 68889- 4414 Sep, Hypertriglyceridemia E78.1 [place] [address] [id number] [place] [address] 24028- 7672 Sep, Chronic pain G89.29 and Insomnia, unspecified type G47.00 [place] [address] [id number] [place] [address] 19046- 3273 2018 Seborrheic keratoses L82.1 and Sebaceous cyst L72.3 [place] [address] 245261- 5772 16 Aug, 2018 Chronic pain G89.29 and Insomnia, unspecified type G47.00 [place] [address] [place] [id number] [place] [address] 02758- 4572 18 Jul, 2018 Seborrheic keratoses L82.1 [place] [address] [id number] [place] [address] 77428- 3001 14 Jul, 2018 Chronic pain G89.29 and Insomnia, unspecified type G47.00 [place] [address] 60110- 2662 Jun, Chronic pain G89.29 and Insomnia, unspecified type G47.00 [place] [address] [place] [id number] [place] [address] 68605- 2602 Jun, Seborrheic keratoses L82.1 [place] [address] [id number] [place] [address] 59999- 2779 May, Dysthymia F34.1 ; Chronic obstructive pulmonary disease, unspecified COPD type J44.9 ; Chronic pain G89.29 ; Insomnia, unspecified type G47.00 ; BMI 40.0-44.9, adult Z68.41 and Other seborrheic keratosis L82.1 [place] [address] [place] [id number] [place] [address] 87807- 4908 May, Chronic pain G89.29 and Insomnia, unspecified type G47.00 [place] [address] [address] [id number] [place] [address] 47745- 4693 Apr, Hypertriglyceridemia E78.1 [place] [address] [address] [id number] [place] [address] 11664- 4408 Apr, Chronic pain G89.29 and Insomnia, unspecified type G47.00 [place] [address] [address] [id number] [place] [address] 00900- 4737 15 Apr, 2018 Hyperinsulinemia E16.1 ; Hypertriglyceridemia E78.1 and Fatigue, unspecified type R53.83 [place] [address] 98389- 2523 13 Apr, 2018 Hyperinsulinemia E16.1 ; Chronic pain G89.29 ; Primary insomnia F51.01 ; Chronic obstructive pulmonary disease, unspecified COPD type J44.9 ; Dysthymia F34.1 ; Hypertriglyceridemia E78.1 ; Fatigue, unspecified type R53.83 and Rash R21 [place] [address] 30956- 1841 March, Chronic pain G89.29 and Insomnia, unspecified type G47.00 [place] [address] [place] [id number] [place] [address] 66094- 3198 March, Insomnia, unspecified type G47.00 [place] [address] [id number] [place] [address] 84324- 5672 Feb, Chronic pain G89.29 [place] [address] 60051- 9624 Feb, Chronic pain G89.29 [place] [address] [place] [id number] [place] [address] 68011- 6706 Jan, Chronic pain G89.29 [place] [address] 12644- 2997 Dec, Chronic pain G89.29 [place] [address] [place] [id number] [place] [address] 33997- 6079 Nov, Chronic pain G89.29 and Insomnia, unspecified type G47.00 [place] [address] [place] [id number] [place] [address] 20470- 1126 Oct, Insomnia, unspecified type G47.00 ; Chronic pain G89.29 and Colon cancer screening Z12.11 [facility] [facility] [address] [address] 3998 Oct, Chronic pain G89.29 [facility] [facility] [address] [address]- 0862 Sep, Chronic pain G89.29 and Insomnia, unspecified type G47.00 [facility] [facility] [address] [address]- 2396 Sep, Chronic pain G89.29 [facility] [facility] [address] [place] [id number] [place] [address] 07013- 1324 Sep, [facility] [place] [facility] [id number] [place] [address] 32386- 6330 Aug, Medicare welcome exam Z00.00 ; Encounter for immunization Z23 ; Colon cancer screening Z12.11 and Encounter for screening for lung cancer Z12.2 [facility] [address] [address]- 4098 Aug, [facility] [facility] [id number] [place] [address] 37608- 4631 Aug, Chronic pain G89.29 and Insomnia, unspecified type G47.00 [facility] [facility] [address] [address]- 9233 Aug, Hypertriglyceridemia E78.1 [facility] [facility] [address] [address]- 4616 Jul, Chronic pain G89.29 and Insomnia, unspecified type G47.00 [facility] [address] [address]- 1271 Jun, Hypertriglyceridemia E78.1 [facility] [address] [address]- 2897 Jun, Chronic pain G89.29 and Insomnia, unspecified type G47.00 [facility] [id number] [address]- 8007 Jun, [facility] [facility] [address] [place] [address] [id number] [place] [address] [id number]- 1941 Jun, [facility] [facility] [address] [place] [address] [id number] [place] [address] 46082- 3262 May, Hyperinsulinemia E16.1 ; Chronic pain G89.29 ; Insomnia, unspecified type G47.00 and Rash R21 [facility] [address] [place] [id number] [place] [address] 51373- 0180 May, Chronic pain G89.29 [facility] [address] [address] [id number] [place] [address] 80096- 5771 May, Hypertriglyceridemia E78.1 [facility] [address] [place] [id number] [place] [address] 56247- 5605 Apr, Chronic pain G89.29 [facility] [address] [place] [address] [id number] [place] [address] 95063- 6934 Apr, Chronic pain G89.29 ; Hyperinsulinemia E16.1 ; Hypertriglyceridemia E78.1 and Primary insomnia F51.01 [facility] [id number] [place] [address] 95719- 7287 March, Chronic pain G89.29 [facility] [id number] [place] [address] 92957- 1392 March, Chronic pain G89.29 [facility] [id number] [place] [address] 29005- 0524 Feb, [facility] [address] [place] [id number] [place] [address] 23350- 7661 Feb, Chronic pain G89.29 [facility] [facility] [address], [place] [address]- 3320 Jan, Chronic pain G89.29 [facility] [place] [facility] [address] [place] [id number] [place] [address]- 9678 07 Dec, 2016 Chronic pain G89.29 [facility] [facility] [address] [place] [address] [id number] [place] [address] 80799- 5246 06 Dec, 2016 [facility] [address] [place] [address] [id number] [place] [address] 72197- 0543 Nov, Hypertriglyceridemia E78.1 [facility] [place] [facility] [address] 31439- 8198 Nov, [facility] [address] [place] [id number] [place] [address] 52279- 6474 Nov, Chronic pain G89.29 ; Hypertriglyceridemia E78.1 and Chronic obstructive pulmonary disease, unspecified COPD type J44.9 [facility] [place] [facility] [address] [place] [id number] [place] [address] 18420- 3268 Nov, Chronic pain G89.29 [facility] [facility] [address] 43847- 0240 Oct, Chronic pain G89.29 [facility] [facility] [address] [place] [id number] [place] [address] 38067- 7155 Oct, [facility] [place] [facility] [address] [place] [address] [id number] [place] [address] 92254- 6274 Sep, Chronic obstructive pulmonary disease, unspecified COPD type J44.9 and Abscess L02.91 [facility] [place] [facility] [address] [place] [id number] [place] [address] 32952- 1284 Sep, Chronic pain G89.29 [facility] [place] [facility] [address] [place] [id number] [place] [address] 77643- 5678 Aug, Chronic pain G89.29 [facility] [facility] [address] [place] [id number] [place] [address] 03795- 1581 Aug, Chronic pain G89.29 [facility] [facility] [address] [address] [id number] [place] [address] 65226- 8847 Aug, Cutaneous horn L85.8 and Skin tag L91.8 [facility] [facility] [address] [place] [address] [id number] [place] [address] 14788- 1146 Jul, [facility] [facility] [address] 85900 2546 09 Jul, 2016 Hypertriglyceridemia E78.1 [facility] [address] 17632- 4222 07 Jul, 2016 Other chronic pain G89.29 ; Essential hypertension I10 ; Hyperinsulinemia E16.1 ; Hyperlipidemia, unspecified hyperlipidemia type E78.5 and Cutaneous horn L85.8 [facility] [address] 63349- 7593 Jun, Chronic pain G89.29 [facility] [address] 67084- 5208 May, Chronic pain G89.29 [facility] [address] 36610- 1241 May, [facility] [address] [place] [id number] [place] [address] 97387- 4355 May, Skin infection L08.9 [facility] [address] [place] [place] [id number] [place] [address] 55275- 8591 Apr, Chronic pain G89.29 [facility] [address] [place] [id number] [place] [address] 58177- 4972 Apr, [facility] [facility] [address] [place] [id number] [place] [address] 10977 2541 Apr, Chronic pain G89.29 [facility] [address] [place] [id number] [place] [address] 05119- 3389 March, [facility] [address] [id number]- 2307 Feb, Chronic pain G89.29 ; Hyperinsulinemia E16.1 and Hypertriglyceridemia E78.1 [facility] [address] 89888- 0649 07 Feb, 2016 [facility] [address] [place] [place] [id number] [place] [address] 38518- 3516 Jan, [facility] [facility] [address] [place] [address] [id number] [place] [address] 25686- 9119 Dec, [facility] [address] [place] [id number] [place] [address] 29549- 9239 Nov, [facility] [facility] [address] [place] [id number] [place] [address] 76859- 6612 Oct, [facility] [address] [place] [id number] [place] [address] 94827- 7917 Oct, Hyperinsulinemia E16.1 [facility] [facility] [address] [place] [id number] [place] [address] 46714- 1216 17 Oct, 2015 Other chronic pain G89.29 ; Chronic obstructive pulmonary disease, unspecified COPD type J44.9 ; Insomnia, unspecified type G47.00 ; Hyperinsulinemia E16.1 and Essential hypertension I10 [facility] [facility] [address] [place] [id number] [place] [address] 76182- 4840 Sep, [facility] [facility] [address] [id number] [place] [address] 50771- 9743 Aug, [facility] [facility] [address] [place] [id number] [place] [address] 20241- 2808 30 Jul, 2015 [facility] [facility] [address] [place] [id number] [place] [address] 16232- 6748 14 Jul, 2015 [facility] [facility] [address] [place] [address] [id number] [place] [address] 13071- 8623 14 Jul, 2015 Overweight 278.02 and Hyperinsulinemia 251.1 [facility] [facility] [address] [place] [id number] [place] [address] 73607- 6883 03 Jul, 2015 [facility] [facility] [address] [place] [id number] [place] [address] 56806- 4549 18 Jun, 2015 Skin tags, multiple acquired 701.9 [facility] [place] [facility] [address] [place] [id number] [place] [address] 16061- 3676 Jun, Other chronic pain 338.29 ; Erectile dysfunction 607.84 ; Hyperinsulinemia 251.1 and Hypertension 401.9 [facility] [facility] [address] [place] [id number] [place] [address] 56255- 9936 Jun, [facility] [facility] [address] 01163- 8870 Jun, [facility] [facility] [address] 29080- 6352 Jun, [facility] [facility] [address] 44171- 6178 May, Pure hyperglyceridemia 272.1 [facility] [facility] [address] [place] [id number] [place] [address] 29297- 5756 May, Pure hyperglyceridemia 272.1 [facility] [facility] [address] 69472- 0026 May, [facility] [facility] [address] [place] [id number] [place] [address] 64450- 8581 May, Overgrown toenails 703.8 ; Seborrheic keratosis 702.19 ; Skin tag 701.9 ; Warts, genital 078.11 ; Cramps, extremity 729.82 ; Increased appetite 783.6 and Heat rash 705.1 [facility] [address] [place] [id number] [place] [address] 46017- 2489 May, [facility] [facility] [address] [place] [id number] [place] [address] 93321- 9293 Apr, [facility] [facility] [address] 50937- 9546 Apr, [facility] [facility] [address] [place] [id number] [place] [address] 68997- 0030 March, [facility] [facility] [address] 72789- 9276 14 Feb, 2015 [facility] [place] [facility] [address] [id number] [place] [address]- 8648 13 Feb, 2015 [facility] [place] [facility] [address] [id number] [place] [address]- 5780 27 Jan, 2015 [facility] [place] [facility] [address] [id number] [place] [address]- 8035 27 Jan, 2015 [facility] [place] [facility] [address] [id number] [place] [address]- 1442 27 Jan, 2015 [facility] [place] [facility] [address] [id number] [place] [address]- 5879 27 Jan, 2015 [facility] [place] [facility] [address] [id number] [place] [address]- 0383 19 Jan, 2015 [facility] [place] [facility] [address] [id number] [place] [address]- 4901 19 Jan, 2015 [facility] [place] [facility] [address] [id number] [place] [address]- 8302 16 Jan, 2015 [facility] [place] [facility] [address] [id number] [place] [address]- 4832 16 Jan, 2015 [facility] [place] [facility] [address] [id number] [place] [address]- 3039 10 Jan, 2015 [facility] [place] [facility] [address] [id number] [place] [address]- 5441 10 Jan, 2015 [facility] [place] [facility] [address] [id number] [address]- 4966 05 Jan, 2015 [facility] [place] [facility] [address] [id number] [place] [address]- 4141 05 Jan, 2015 [facility] [place] [facility] [address] [id number] [place] [address]- 8269 19 Dec, 2014 [facility] [place] [facility] [address] [id number] [place] [address]- 8565 19 Dec, 2014 [facility] [place] [facility] [address] [id number] [place] [address]- 3087 Dec, 2014 [facility] [place] [facility] [address] [id number] [place] [address]- 4036 Dec, 2014 [facility] [place] [facility] [address] [id number] [place] [address]- 2546 Dec, 2014 [facility] [place] [facility] [address] [id number] [place] [address]- 3966 Dec, 2014 [facility] [place] [facility] [address] [id number] [place] [address]- 0926 Dec, 2014 [facility] [place] [facility] [address] [id number] [place] [address]- 9683 Dec, 2014 [facility] [place] [facility] [address] [id number] [place] [address]- 2426 Nov, [facility] [place] [facility] [address] [id number] [place] [address]- 0598 Nov, [facility] [place] [facility] [address] [id number] [place] [address]- 7372 Nov, [facility] [place] [facility] [address] [id number] [place] [address]- 1375 Nov, [facility] [place] [facility] [address] [facility] [id number] [place] [address]- 8858 Nov, [facility] [place] [facility] [address] [id number] [place] [address]- 0893 Nov, [facility] [place] [facility] [address] [id number] [place] [address]- 3052 Nov, [facility] [place] [facility] [address] [id number] [place] [address]- 6754 Nov, [facility] [place] [facility] [address] [id number] [place] [address]- 2546 Oct, [facility] [place] [facility] [address] [id number] [place] [address]- 7370 Oct, [facility] [place] [facility] [address] [id number] [place] [address]- 0422 Sep, [facility] [place] [facility] [address] [id number] [place] [address]- 9287 Sep, [facility] [place] [facility] [address] [id number] [place] [address]- 4889 Sep, [facility] [place] [facility] [address] [id number] [place] [address]- 4751 Sep, [facility] [place] [facility] [address] [id number] [place] 0225 Aug, [facility] [place] [facility] [address] [id number] [place] [address]- 2779 Aug, [facility] [place] [facility] [address] [id number] [place] [address]- 3257 Aug, [facility] [place] [facility] [address] [id number] [place] [address]- 5768 Aug, [facility] [place] [facility] [address] [id number] [place] [address]- 6927 Aug, [facility] [place] [facility] [address] [id number], [place] [address]- 9279 Aug, [facility] [place] [facility] [address] [id number], [place] [address]- 9904 Aug, [facility] [place] [facility] [address] [id number], [place] [address]- 4161 Aug, [facility] [place] [facility] [address] [id number] [place] [address]- 8104 Jul, [facility] [place] [facility] [address] [id number], [place] [address]- 4660 Jul, [facility] [place] [facility] [address] [id number] [place] [address]- 7778 Jul, [facility] [place] [facility] [address] [id number] [place] [address]- 7965 Jul, [facility] [place] [facility] [address] [id number] [place] [address]- 0893 Jul, [facility] [place] [facility] [address] [id number] [place] [address]- 5312 Jun, [facility] [place] [facility] [address] [id number] [place] [address]- 8831 Jun, [facility] [place] [facility] [address] [id number] [place] [address]- 1722 Jun, [facility] [place] [facility] [address] [id number] [place] [address]- 0350 Jun, [facility] [place] [facility] [address] [id number] [place] [address]- 7801 Jun, [facility] [place] [facility] [address] [id number] [place] [address]- 1540 Jun, [facility] [place] [facility] [address] [id number] [place] [address]- 1677 May, [facility] [place] [facility] [address] [id number] [place] [address]- 3683 May, [facility] [place] [facility] [address] [id number] [place] [address]- 2079 May, [facility] [place] [facility] [address] [id number] [place] [address]- 6162 May, [facility] [place] [facility] [address] [id number] [place] [address]- 0252 Apr, [facility] [place] [facility] [address] [id number] [place] [address]- 8849 Apr, [facility] [place] [facility] [address] [id number] [place] [address]- 0741 Apr, [facility] [place] [facility] [address] [id number] [place] [address]- 4565 Apr, [facility] [place] [facility] [address] [id number] [place] [address] Apr, [facility] [place] [facility] [address] [id number] [place] [address] Apr, [facility] [place] [facility] [address] [id number] [place] [address] March, [facility] [place] [facility] [address] [id number] [place] [address] March, [facility] [place] [facility] [address] [id number] [place] [address] March, [facility] [place] [facility] [address] [id number] [place] [address] March, [facility] [place] [facility] [address] [id number] [place] [address] Feb, [facility] [place] [facility] [address] [id number] [place] [address] Feb, [facility] [place] [facility] [address] [id number] [place] [address] Feb, [facility] [place] [facility] [address] [id number] [place] [address] Feb, [facility] [place] [facility] [address] [id number] [place] [address] Feb, [facility] [place] [facility] [address] [id number] [place] [address] Feb, [facility] [place] [facility] [address] [id number] [place] [address] Feb, [facility] [place] [facility] [address] [id number] [place] [address] Feb, [facility] [place] [facility] [address] [id number] [place] [address] Feb, [facility] [place] [facility] [address] [id number], [place] [address] Feb, [facility] [place] [facility] [address] [id number] [place] [address] Feb, [facility] [place] [facility] [address] [id number] [place] [address] Feb, [facility] [place] [facility] [address] [facility] [id number] [place] [address] Feb, [facility] [place] [facility] [address] [id number] [place] [address] Feb, [facility] [place] [facility] [address] [id number] [place] [address] Feb, [facility] [place] [facility] [address] [facility] [id number] [place] [address] Feb, [facility] [place] [facility] [address] [facility] [id number] [place] [address] Jan, [facility] [place] [facility] [address] [id number], [place] [address] Jan, [facility] [place] [facility] [address] [facility] [id number] [place] [address] Dec, [facility] [place] [facility] [address] [facility] [id number] [place] [address] Dec, [facility] [place] [facility] [address] [facility] [id number], [place] [address] Dec, [facility] [place] [facility] [address] [facility] [id number], [place] [address] Dec, [facility] [place] [facility] [address] [facility] [id number] [place] [address] Dec, [facility] [place] [facility] [address] [facility] [id number], [place] [address] Dec, [facility] [place] [facility] [address] [facility] [id number], [place] [address] Dec, [facility] [place] [facility] [address] [id number] [place] [address] Nov, [facility] [place] [facility] [address] [id number] [place] [address] Nov, [facility] [place] [facility] [address] [id number] [place] [address] Nov, [facility] [place] [facility] [address] [id number] [place] [address] Nov, [facility] [place] [facility] [address] [id number] [place] [address] Oct, [facility] [place] [facility] [address] [id number] [place] [address] Oct, [facility] [place] [facility] [address] [id number] [place] [address] Sep, [facility] [place] [facility] [address] [id number] [place] [address] Sep, [facility] [place] [facility] [address] [id number] [place] [address] Aug, [facility] [place] [facility] [address] [id number] [place] [address] Aug, [facility] [place] [facility] [address] [id number] [place] [address] Aug, [facility] [place] [facility] [address] [id number] [place] [address] Aug, [facility] [place] [facility] [address] [id number] [place] [address] Aug, [facility] [place] [facility] [address] [id number] [place] [address] Aug, [facility] [place] [facility] [address] [address] [id number] [place] [address] Aug, [facility] [place] [facility] [address] [id number] [place] [address] 15 Aug, 2013 [facility] [place] [facility] [address] [id number] [place] [address] Aug, [facility] [place] [facility] [address] [id number] [place] [address] Aug, [facility] [place] [facility] [address] [id number] [place] [address] Jun, [facility] [place] [facility] [address] [id number] [place] [address] Jun, [facility] [place] [facility] [address] [id number] [place] [address] May, [facility] [place] [facility] [address] [id number] [place] [address] Apr, [facility] [place] [facility] [address] [id number] [place] [address] Apr, [facility] [place] [facility] [address] [id number] [place] [address] March, [facility] [place] [facility] [address] [id number] [place] [address] Feb, [facility] [place] [facility] [address] [id number] [place] [address] Jan, [facility] [place] [facility] [address] [id number], [place] [address] Jan, [facility] [place] [facility] [address] [id number], [place] [address] Dec, [facility] [place] [facility] [address] [id number] [place] [address] Dec, [facility] [place] [facility] [address] [id number] [place] [address] Nov, [facility] [place] [facility] [address] [id number] [place] [address] Jul, [facility] [place] [facility] [id number], [place] [address] Jul, [facility] [place] [facility] [id number], [place] [address] Jun, [facility] [place] [facility] [id number], [place] [address] May, [facility] [place] [facility] [id number], [place] [address] May, [facility] [place] [facility] [id number], [place] [address] May, [facility] [place] [facility] [id number] [place] [address] May, [facility] [place] [facility] [id number], [place] [address] May, [facility] [place] [facility] [id number], [place] [address] May, [facility] [place] [facility] [id number], [place] [address] May, [facility] [place] [facility] [id number], [place] [address] Apr, [facility] [place] [facility] [id number], [place] [address] Apr, [facility] [place] [facility] [id number], [place] [address] Apr, [facility] [place] [facility] [id number] [address] Apr, IMMUNIZATIONS No Known Immunizations SOCIAL HISTORY Never Assessed REASON FOR VISIT lab results PLAN OF CARE VITAL SIGNS MEDICATIONS Medication Instructions Dosage Frequency Start Date End Date Duration Status Lovastatin 40 mg Orally Once a day 2 tablet with the evening meal 24h 30 Active RESULTS No Results PROCEDURES No Known procedures INSTRUCTIONS MEDICATIONS ADMINISTERED No Known Medications MEDICAL (GENERAL) HISTORY Type Description Date Medical History hypogonadism Medical History hyperlipidemia Medical History pre-diabetic Medical History chronic pain Medical History COPD Medical History puenmonia Surgical History skin cancer 1999 Hospitalization History surgery Hospitalization History MRSA infection 05/2015 Hospitalization History pneumonia
--- OUTSIDE RECORDS SUMMARY | 2018-11-05 12:34 | XMS REPORT | Continuity of Care Document ---
Author Author Formerly [facility] Address Unknown Phone Unavailable Allergies Active Description Code Type Severity Reaction Onset Reported/Identified Relationship to Patient Clinical Status Yes No Known Drug Allergies [id number] Drug Allergy Unknown N/A 03/21/2013 Yes ceftriaxone [id number] Drug Allergy Moderate ITCHING 10/30/2018 Medications There is no data. Problems Date [...] JOSÉ LUIS RODRÍGUEZ APRN 599.70 HEMATURIA 05/25/2012 ANNE BARAHONA JOSÉ LUIS S 723.1 neck pain 05/25/2012 ANNE BARAHONA, JOSÉ LUIS S 780.79 FATIGUE 05/25/2012 ANNE BARAHONA JOSÉ LUIS S 786.09 difficulty breathing (dyspnea) 05/25/2012 CAMILLE RODRÍGUEZ APRNA S 401.1 ESSENTIAL HYPERTENSION BENIGN 05/25/2012 ANNE BARAHONA JOSÉ LUIS S 599.70 HEMATURIA 05/25/2012 ROLLY RODRÍGUEZ APRNNDA S 723.1 NECK PAIN 05/25/2012 ANNE BARAHONA, [...] APRN S 401.1 ESSENTIAL HYPERTENSION BENIGN 05/25/2012 ANNE BARAHONA JOSÉ LUIS S 599.70 HEMATURIA 05/25/2012 ROLLY RODRÍGUEZ APRNNDA S 723.1 NECK PAIN 05/25/2012 ROLLY RODRÍGUEZ APRNNDA S 780.79 FATIGUE 05/25/2012 ROLLY RODRÍGUEZ APRNNDA S 786.09 DIFFICULTY BREATHING (DYSPNEA) 05/25/2012 NIXON RANKIN APRN 401.1 ESSENTIAL HYPERTENSION BENIGN 05/25/2012 NIXON RANKIN APRN 599.70 HEMATURIA 05/25/2012 NIXON ARNKIN APRN 723.1 NECK PAIN 05/25/2012 NIXON RANKIN APRN 780.79 FATIGUE 05/25/2012 KEELY JAINNNIXON T 786.09 DIFFICULTY BREATHING (DYSPNEA) 05/25/2012 KEELY JAINGladys NIXON T 401.1 ESSENTIAL HYPERTENSION BENIGN 05/25/2012 KEELY JAINNNIXON T 599.70 HEMATURIA 05/25/2012 NIXON RANKIN APRN T 723.1 NECK PAIN 05/25/2012 NIXON RANKIN APRN T 780.79 FATIGUE 05/25/2012 KEELY JAINGladys NIXON T 786.09 DIFFICULTY BREATHING (DYSPNEA) 05/25/2012 ANNE BARAHONA JOSÉ LUIS S 401.1 ESSENTIAL HYPERTENSION BENIGN 05/25/2012 ANNE BARAHONA, JOSÉ LUIS S 599.70 HEMATURIA 05/25/2012 ANNE BARAHONA JOSÉ LUIS S 723.1 NECK PAIN 05/25/2012 ANNE DIRECTOR REHABILITATION PROGRAM, JOSÉ LUIS S 780.79 FATIGUE 05/25/2012 ANNE DIRECTOR REHABILITATION PROGRAM, JOSÉ LUIS S 786.09 DIFFICULTY BREATHING (DYSPNEA) 05/25/2012 ANNE BARAHONA JOSÉ LUIS S 401.1 ESSENTIAL HYPERTENSION BENIGN 05/25/2012 ANNE BARAHONA, JOSÉ LUIS S 599.70 HEMATURIA 05/25/2012 ANNE BARAHONA, JOSÉ LUIS S 723.1 NECK PAIN 05/25/2012 ANNE BARAHONA, JOSÉ LUIS S 780.79 FATIGUE 05/25/2012 ANNE DIRECTOR REHABILITATION PROGRAM, JOSÉ LUIS S 786.09 DIFFICULTY BREATHING (DYSPNEA) 05/25/2012 ANNE BARAHONA, JOSÉ LUIS S 401.1 ESSENTIAL HYPERTENSION BENIGN 05/25/2012 ANNE BARAHONA, JOSÉ LUIS S 599.70 HEMATURIA 05/25/2012 ANNE JAINN, JOSÉ LUIS S 723.1 NECK PAIN 05/25/2012 ANNE DIRECTOR REHABILITATION PROGRAM, JOSÉ LUIS S 780.79 FATIGUE 05/25/2012 ANNE BARAHONA, JOSÉ LUIS S 786.09 DIFFICULTY BREATHING (DYSPNEA) 05/25/2012 ANNE BARAHONA, JOSÉ LUIS S 401.1 ESSENTIAL HYPERTENSION BENIGN 05/25/2012 ANNE BARAHONA, JOSÉ LUIS S 599.70 HEMATURIA 05/25/2012 ANNE BARAHONA, JOSÉ LUIS S 723.1 NECK PAIN 05/25/2012 ANNE BARAHONA, JOSÉ LUIS S 780.79 FATIGUE 05/25/2012 CAMILLE RODRÍGUEZ APRNA S 786.09 DIFFICULTY BREATHING (DYSPNEA) 05/25/2012 JOSÉ LUIS RODRÍGUEZ APRN S 401.1 ESSENTIAL HYPERTENSION BENIGN 05/25/2012 ROLLY RODRÍGUEZ APRNNDA S 599.70 HEMATURIA 05/25/2012 ROLLY RODRÍGUEZ APRNNDA S 723.1 NECK PAIN 05/25/2012 CAMILLE RODRÍGUEZ APRNA S 780.79 FATIGUE 05/25/2012 ROLLY RODRÍGUEZ APRNNDA [...] breathing (dyspnea) 06/21/2012 JOSÉ LUIS RODRÍGUEZ APRN 496 CHRONIC AIRWAY OBSTRUCTION NOT ELSEWHERE CLASSIFIED 06/21/2012 NIXON RANKIN APRN CHRONIC AIRWAY OBSTRUCTION NOT ELSEWHERE CLASSIFIED 06/21/2012 496 CHRONIC AIRWAY OBSTRUCTION NOT ELSEWHERE CLASSIFIED 06/21/2012 496 CHRONIC AIRWAY OBSTRUCTION NOT ELSEWHERE CLASSIFIED 06/21/2012 JOSÉ LUIS RODRÍGUEZ APRN 496 CHRONIC AIRWAY OBSTRUCTION NOT ELSEWHERE CLASSIFIED 06/21/2012 JOSÉ LUIS RODRÍGUEZ APRN 496 CHRONIC AIRWAY OBSTRUCTION NOT ELSEWHERE CLASSIFIED 06/21/2012 LIZETT LECHUGA MD 496 CHRONIC AIRWAY OBSTRUCTION NOT ELSEWHERE CLASSIFIED 06/21/2012 NIXON RANKIN APRN CHRONIC AIRWAY OBSTRUCTION NOT ELSEWHERE CLASSIFIED 06/21/2012 ANNE BARAHONA, JOSÉ LUIS S 496 CHRONIC AIRWAY OBSTRUCTION NOT ELSEWHERE CLASSIFIED 06/21/2012 NIXON RANKIN APRN 496 CHRONIC AIRWAY OBSTRUCTION NOT ELSEWHERE CLASSIFIED 06/21/2012 NIXON RANKIN APRN 496 CHRONIC AIRWAY OBSTRUCTION NOT ELSEWHERE CLASSIFIED 06/21/2012 ANNE DIRECTOR REHABILITATION PROGRAM, JOSÉ LUIS S 496 CHRONIC AIRWAY OBSTRUCTION NOT ELSEWHERE CLASSIFIED 06/21/2012 ROLLY RODRÍGUEZ APRNNDA S 496 CHRONIC AIRWAY OBSTRUCTION NOT ELSEWHERE CLASSIFIED 06/21/2012 ANNE DIRECTOR REHABILITATION PROGRAM, JOSÉ LUIS S 496 CHRONIC AIRWAY OBSTRUCTION NOT ELSEWHERE CLASSIFIED 06/21/2012 ANNE DIRECTOR REHABILITATION PROGRAM, JOSÉ LUIS S 496 CHRONIC AIRWAY OBSTRUCTION NOT ELSEWHERE CLASSIFIED 06/21/2012 ANNE JAINN, JOSÉ LUIS S 496 CHRONIC AIRWAY OBSTRUCTION NOT ELSEWHERE CLASSIFIED 06/21/2012 PENN DO RAFIA K 496 CHRONIC AIRWAY OBSTRUCTION NOT ELSEWHERE CLASSIFIED 06/21/2012 PENN DO, RAFIA K 496 CHRONIC AIRWAY OBSTRUCTION NOT ELSEWHERE CLASSIFIED 06/21/2012 496 CHRONIC AIRWAY OBSTRUCTION NOT ELSEWHERE CLASSIFIED 06/22/2012 Ot 327.26 SLEEP RELATED HYPOVENTILATION/HYPOXEMIA 06/22/2012 Ot 496 CHR AIRWAY OBSTRUCT NEC 06/22/2012 Ot 786.09 RESPIRATORY ABNORM NEC 08/24/2012 ROLLY RORDÍGUEZ APRNNDA S 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1 HYPERTRIGLYCERIDEMIA 02/03/2013 LIZETT LECHUGA MD 272.1 HYPERTRIGLYCERIDEMIA 02/03/2013 NIXON RANKIN APRN T 272.1 HYPERTRIGLYCERIDEMIA 02/03/2013 ANNE BARAHONA, JOSÉ LUIS S 272.1 HYPERTRIGLYCERIDEMIA 02/03/2013 NIXON RANKIN APRN T 272.1 HYPERTRIGLYCERIDEMIA 02/03/2013 NIXON RANKIN APRN T 272.1 HYPERTRIGLYCERIDEMIA 02/03/2013 ANNE JAINN, JOSÉ LUIS S 272.1 HYPERTRIGLYCERIDEMIA 02/03/2013 ANNERIVERA JAINN, JOSÉ LUIS S 272.1 HYPERTRIGLYCERIDEMIA 02/03/2013 ANNE DIRECTOR REHABILITATION PROGRAM, JOSÉ LUIS S 272.1 HYPERTRIGLYCERIDEMIA 02/03/2013 ANNE DIRECTOR REHABILITATION PROGRAM, JOSÉ LUIS S 272.1 HYPERTRIGLYCERIDEMIA 02/03/2013 ANNE BARAHONA, JOSÉ LUIS S 272.1 HYPERTRIGLYCERIDEMIA 02/03/2013 PENN DO, RAFIA K 272.1 HYPERTRIGLYCERIDEMIA 02/03/2013 PENN DO, RAFIA K 272.1 HYPERTRIGLYCERIDEMIA 03/07/2013 709.9 SKIN LESIONS 03/07/2013 709.9 SKIN LESIONS 03/07/2013 ANNE BARAHONA, JOSÉ LUIS S 709.9 SKIN LESIONS 03/07/2013 ANNE BARAHONA, JOSÉ LUIS S 709.9 SKIN LESIONS 03/07/2013 LIZETT LECHUGA MD 709.9 SKIN LESIONS 03/07/2013 NIXON RANKIN APRN 709.9 SKIN LESIONS 03/07/2013 ANNE BARAHONA, JOSÉ LUIS S 709.9 SKIN LESIONS 03/07/2013 NIXON RANKIN APRN 709.9 SKIN LESIONS 03/07/2013 NIXON RANKIN APRN 709.9 SKIN LESIONS 03/07/2013 ANNE DIRECTOR REHABILITATION PROGRAM, JOSÉ LUIS S 709.9 SKIN LESIONS 03/07/2013 ANNE DIRECTOR REHABILITATION PROGRAM, JOSÉ LUIS S 709.9 SKIN LESIONS 03/07/2013 ANNE DIRECTOR REHABILITATION PROGRAM, JOSÉ LUIS S 709.9 SKIN LESIONS 03/07/2013 ANNE DIRECTOR REHABILITATION PROGRAM, JOSÉ LUIS S 709.9 SKIN LESIONS 03/07/2013 ANNE DIRECTOR REHABILITATION PROGRAM, JOSÉ LUIS S 709.9 SKIN LESIONS 03/07/2013 [...] CELL CARCINOMA OF SKIN SITE UNSPECIFIED 04/11/2013 ROLLY RODRÍGUEZ APRNNDA S 173.91 BASAL CELL CARCINOMA OF SKIN [...] CELL CARCINOMA OF SKIN SITE UNSPECIFIED 04/11/2013 ROLLY RODRÍGUEZ APRNNDA S 173.91 BASAL CELL CARCINOMA OF SKIN SITE UNSPECIFIED 04/11/2013 ANNE DIRECTOR REHABILITATION PROGRAM, JOSÉ LUIS S 173.91 BASAL CELL CARCINOMA OF SKIN SITE UNSPECIFIED 04/11/2013 ANNE DIRECTOR REHABILITATION PROGRAM, JOSÉ LUIS S 173.91 BASAL CELL CARCINOMA OF SKIN SITE UNSPECIFIED 04/11/2013 ANNE DIRECTOR REHABILITATION PROGRAM, JOSÉ LUIS S 173.91 BASAL CELL CARCINOMA OF SKIN SITE UNSPECIFIED 04/11/2013 ANNE DIRECTOR REHABILITATION PROGRAM, JOSÉ LUIS S 173.91 BASAL CELL CARCINOMA OF SKIN SITE UNSPECIFIED 04/11/2013 PENN DO, RAFIA K 173.91 BASAL CELL CARCINOMA OF SKIN SITE UNSPECIFIED 04/11/2013 PENN DO, RAFIA K 173.91 BASAL CELL CARCINOMA OF SKIN SITE UNSPECIFIED 05/06/2013 ANNE DIRECTOR REHABILITATION PROGRAM, JOSÉ LUIS S 477.0 ALLERGIC RHINITIS DUE TO POLLEN 05/06/2013 ANNE DIRECTOR REHABILITATION PROGRAMROLLY GrahamNDA S 553.1 UMBILICAL HERNIA WITHOUT OBSTRUCTION OR GANGRENE 05/06/2013 ROLLY RODRÍGUEZ APRNNDA S 719.07 EDEMA FOOT 05/06/2013 ROLLY RODRÍGUEZ APRNNDA S V18.0 FAMILY HISTORY OF DIABETES MELLITUS 05/06/2013 ROLLY RODRÍGUEZ APRNNDA S 477.0 ALLERGIC RHINITIS DUE TO POLLEN 05/06/2013 ANNE DIRECTOR REHABILITATION PROGRAMROLLY GrahamNDA S 553.1 UMBILICAL HERNIA WITHOUT OBSTRUCTION OR GANGRENE 05/06/2013 ROLLY RODRÍGUEZ APRNNDA S 719.07 EDEMA FOOT 05/06/2013 ROLLY RODRÍGUEZ [...] UMBILICAL HERNIA WITHOUT OBSTRUCTION OR GANGRENE 05/06/2013 NIOXN RANKIN APRN 719.07 EDEMA FOOT 05/06/2013 NIXON RANKIN APRN V18.0 FAMILY HISTORY OF DIABETES MELLITUS 05/06/2013 ANNE DIRECTOR REHABILITATION PROGRAM, JOSÉ LUIS S 477.0 ALLERGIC RHINITIS DUE TO POLLEN 05/06/2013 ANNE DIRECTOR REHABILITATION PROGRAM, JOSÉ LUIS S 553.1 UMBILICAL HERNIA WITHOUT OBSTRUCTION OR GANGRENE 05/06/2013 ANNE DIRECTOR REHABILITATION PROGRAM, JOSÉ LUIS S 719.07 EDEMA FOOT 05/06/2013 ANNE DIRECTOR REHABILITATION PROGRAM, JOSÉ LUIS S V18.0 FAMILY HISTORY OF [...] RANKIN APRN 719.07 EDEMA FOOT 05/06/2013 NIXON ARNKIN APRN V18.0 FAMILY HISTORY OF DIABETES MELLITUS 05/06/2013 ANNE DIRECTOR REHABILITATION PROGRAM, JOSÉ LUIS S 477.0 ALLERGIC RHINITIS DUE TO POLLEN 05/06/2013 ANNE DIRECTOR REHABILITATION PROGRAM, JOSÉ LUIS S 553.1 UMBILICAL HERNIA WITHOUT OBSTRUCTION OR GANGRENE 05/06/2013 ANNE DIRECTOR REHABILITATION PROGRAM, JOSÉ LUIS S 719.07 EDEMA FOOT 05/06/2013 ANNE DIRECTOR REHABILITATION PROGRAM, JOSÉ LUIS S V18.0 FAMILY HISTORY OF DIABETES MELLITUS 05/06/2013 ANNE DIRECTOR REHABILITATION PROGRAM, JOSÉ LUIS S 477.0 ALLERGIC RHINITIS DUE TO POLLEN 05/06/2013 ANNE DIRECTOR REHABILITATION PROGRAM, JOSÉ LUIS S 553.1 UMBILICAL HERNIA WITHOUT OBSTRUCTION OR GANGRENE 05/06/2013 ANNE DIRECTOR REHABILITATION PROGRAM, JOSÉ LUIS S 719.07 EDEMA FOOT 05/06/2013 ANNE DIRECTOR REHABILITATION PROGRAM, JOSÉ LUIS S V18.0 FAMILY HISTORY OF DIABETES MELLITUS 05/06/2013 ANNE DIRECTOR REHABILITATION PROGRAM, JOSÉ LUIS S 477.0 ALLERGIC RHINITIS DUE TO POLLEN 05/06/2013 ANNE DIRECTOR REHABILITATION PROGRAM, JOSÉ LUIS S 553.1 UMBILICAL HERNIA WITHOUT OBSTRUCTION OR GANGRENE 05/06/2013 ANNE DIRECTOR REHABILITATION PROGRAM, JOSÉ LUIS S 719.07 EDEMA FOOT 05/06/2013 ANNE DIRECTOR REHABILITATION PROGRAM, JOSÉ LUIS S V18.0 FAMILY HISTORY OF DIABETES MELLITUS 05/06/2013 ANNE DIRECTOR REHABILITATION PROGRAM, JOSÉ LUIS S 477.0 ALLERGIC RHINITIS DUE TO POLLEN 05/06/2013 ANNE DIRECTOR REHABILITATION PROGRAM, JOSÉ LUIS S 553.1 UMBILICAL HERNIA WITHOUT OBSTRUCTION OR GANGRENE 05/06/2013 ANNE DIRECTOR REHABILITATION PROGRAM, JOSÉ LUIS S 719.07 EDEMA FOOT 05/06/2013 ANNE DIRECTOR REHABILITATION PROGRAM, JOSÉ LUIS S V18.0 FAMILY HISTORY OF DIABETES MELLITUS 05/06/2013 ANNE DIRECTOR REHABILITATION PROGRAM, JOSÉ LUIS S 477.0 ALLERGIC RHINITIS DUE TO POLLEN 05/06/2013 ANNE DIRECTOR REHABILITATION PROGRAM, JOSÉ LUIS S 553.1 UMBILICAL HERNIA WITHOUT OBSTRUCTION OR GANGRENE 05/06/2013 ANNE DIRECTOR REHABILITATION PROGRAM, JOSÉ LUIS S 719.07 EDEMA FOOT 05/06/2013 ANNE DIRECTOR REHABILITATION PROGRAM, JOSÉ LUIS S V18.0 FAMILY HISTORY OF [...] V18.0 FAMILY HISTORY OF DIABETES MELLITUS 09/19/2013 ANNE BARAHONA, JOSÉ LUIS S 338.29 CHRONIC PAIN 09/19/2013 ALEXANDREA HUMPHREYS, LIZETT 338.29 CHRONIC PAIN 09/19/2013 NIXON RANKIN APRN 338.29 CHRONIC PAIN 09/19/2013 JOSÉ LUIS RODRÍGUEZ APRN 338.29 CHRONIC PAIN 09/19/2013 NIXON RANKIN APRN 338.29 CHRONIC PAIN 09/19/2013 NIXON RANKIN APRN 338.29 CHRONIC PAIN 09/19/2013 ANNE DIRECTOR REHABILITATION PROGRAM, JOSÉ LUIS S 338.29 CHRONIC PAIN 09/19/2013 ANNE DIRECTOR REHABILITATION PROGRAM, JOSÉ LUIS S 338.29 CHRONIC PAIN 09/19/2013 ANNE DIRECTOR REHABILITATION PROGRAM, JOSÉ LUIS S 338.29 CHRONIC PAIN 09/19/2013 ANNE DIRECTOR REHABILITATION PROGRAM, JOSÉ LUIS S 338.29 CHRONIC PAIN 09/19/2013 ANNE DIRECTOR REHABILITATION PROGRAM, JOSÉ LUIS S 338.29 CHRONIC PAIN 09/19/2013 PENN DO, RAFIA K 338.29 CHRONIC PAIN 09/19/2013 PENN DO, RAFIA K 338.29 CHRONIC PAIN 02/28/2014 ALEXANDREA HUMPHREYS, LIEZTT 702.8 OTHER SPECIFIED DERMATOSES 02/28/2014 NIXON RANKIN APRN 702.8 OTHER SPECIFIED DERMATOSES 02/28/2014 ANNE DIRECTOR REHABILITATION PROGRAM, JOSÉ LUIS S 702.8 OTHER SPECIFIED DERMATOSES 02/28/2014 NIXON RANKIN APRN 702.8 OTHER SPECIFIED DERMATOSES 02/28/2014 NIXON RANKIN APRN 702.8 OTHER SPECIFIED DERMATOSES 02/28/2014 ANNE DIRECTOR REHABILITATION PROGRAM, JOSÉ LUIS S 702.8 OTHER SPECIFIED DERMATOSES 02/28/2014 ANNE DIRECTOR REHABILITATION PROGRAM, JOSÉ LUIS S 702.8 OTHER SPECIFIED DERMATOSES 02/28/2014 ANNE DIRECTOR REHABILITATION PROGRAM, JOSÉ LUIS S 702.8 OTHER SPECIFIED DERMATOSES 02/28/2014 ANNE DIRECTOR REHABILITATION PROGRAM, JOSÉ LUIS S 702.8 OTHER SPECIFIED DERMATOSES 02/28/2014 ANNE DIRECTOR REHABILITATION PROGRAM, JOSÉ LUIS S 702.8 OTHER SPECIFIED DERMATOSES 02/28/2014 PENN DO, RAFIA K 702.8 OTHER SPECIFIED DERMATOSES 02/28/2014 PENN DO, RAFIA K 702.8 OTHER SPECIFIED DERMATOSES 03/21/2014 NIXON RANKIN APRN V16.0 FAMILY HISTORY OF MALIGNANT NEOPLASM OF GASTROINTESTINAL TRACT 03/21/2014 NIXON RANKIN APRN V16.42 FAMILY HISTORY OF MALIGNANT NEOPLASM OF PROSTATE 03/21/2014 ANNE JAINN, JOSÉ LUIS S V16.0 FAMILY HISTORY OF MALIGNANT NEOPLASM OF GASTROINTESTINAL TRACT 03/21/2014 ANNE BARAHONA JOSÉ LUIS S V16.42 FAMILY HISTORY OF MALIGNANT NEOPLASM OF PROSTATE 03/21/2014 NIXON RANKIN APRN V16.0 FAMILY HISTORY OF MALIGNANT NEOPLASM OF GASTROINTESTINAL TRACT 03/21/2014 NIXON RANKIN APRN V16.42 FAMILY HISTORY OF MALIGNANT NEOPLASM OF PROSTATE 03/21/2014 NIXON RANKIN APRN T V16.0 FAMILY HISTORY OF MALIGNANT NEOPLASM OF GASTROINTESTINAL TRACT 03/21/2014 NIXON RANKIN APRN T V16.42 FAMILY HISTORY OF MALIGNANT NEOPLASM OF PROSTATE 03/21/2014 ANNE DIRECTOR REHABILITATION PROGRAM JOSÉ LUIS S V16.0 FAMILY HISTORY OF MALIGNANT NEOPLASM OF GASTROINTESTINAL TRACT 03/21/2014 ANNE JAINN JOSÉ LUIS S V16.42 FAMILY HISTORY OF MALIGNANT NEOPLASM OF PROSTATE 03/21/2014 ANNE DIRECTOR REHABILITATION PROGRAM, JOSÉ LUIS S V16.0 FAMILY HISTORY OF MALIGNANT NEOPLASM OF GASTROINTESTINAL TRACT 03/21/2014 ANNE DIRECTOR REHABILITATION PROGRAM, JOSÉ LUIS S V16.42 FAMILY HISTORY OF MALIGNANT NEOPLASM OF PROSTATE 03/21/2014 ANNE DIRECTOR REHABILITATION PROGRAM JOSÉ LUIS S V16.0 FAMILY HISTORY OF MALIGNANT NEOPLASM OF GASTROINTESTINAL TRACT 03/21/2014 ANNE JAINN JOSÉ LUIS S V16.42 FAMILY HISTORY OF MALIGNANT NEOPLASM OF PROSTATE 03/21/2014 ANNE JAINN JOSÉ LUIS S V16.0 FAMILY HISTORY OF MALIGNANT NEOPLASM OF GASTROINTESTINAL TRACT 03/21/2014 ANNE DIRECTOR REHABILITATION PROGRAM JOSÉ LUIS S V16.42 FAMILY HISTORY OF MALIGNANT NEOPLASM OF PROSTATE 03/21/2014 ANNE JAINN JOSÉ LUIS S V16.0 FAMILY HISTORY OF MALIGNANT NEOPLASM OF GASTROINTESTINAL TRACT 03/21/2014 ANNE DIRECTOR REHABILITATION PROGRAM JOSÉ LUIS S V16.42 FAMILY HISTORY OF [...] NEOPLASM OF PROSTATE 04/11/2014 NIXON RANKIN APRN T 702.0 ACTINIC KERATOSIS 04/11/2014 NIXON RANKIN APRN 702.19 OTHER SEBORRHEIC KERATOSIS 04/11/2014 NIXON RANKIN APRN T 702.0 ACTINIC KERATOSIS 04/11/2014 NIXON RANKIN APRN 702.19 OTHER SEBORRHEIC KERATOSIS 04/11/2014 ANNE DIRECTOR REHABILITATION PROGRAM, JOSÉ LUIS S 702.0 ACTINIC KERATOSIS 04/11/2014 ANNE DIRECTOR REHABILITATION PROGRAM, JOSÉ LUIS S 702.19 OTHER SEBORRHEIC KERATOSIS 04/11/2014 ANNE DIRECTOR REHABILITATION PROGRAM, JOSÉ LUIS S 702.0 ACTINIC KERATOSIS 04/11/2014 ANNE DIRECTOR REHABILITATION PROGRAM, JOSÉ LUIS S 702.19 OTHER SEBORRHEIC KERATOSIS 04/11/2014 ANNE DIRECTOR REHABILITATION PROGRAM, JOSÉ LUIS S 702.0 ACTINIC KERATOSIS 04/11/2014 ANNE DIRECTOR REHABILITATION PROGRAM, JOSÉ LUIS S 702.19 OTHER SEBORRHEIC KERATOSIS 04/11/2014 ANNE DIRECTOR REHABILITATION PROGRAM, JOSÉ LUIS S 702.0 ACTINIC KERATOSIS 04/11/2014 ANNE DIRECTOR REHABILITATION PROGRAM, JOSÉ LUIS S 702.19 OTHER SEBORRHEIC KERATOSIS 04/11/2014 ANNE DIRECTOR REHABILITATION PROGRAM, JOSÉ LUIS S 702.0 ACTINIC KERATOSIS 04/11/2014 ANNE DIRECTOR REHABILITATION PROGRAM, JOSÉ LUIS S 702.19 OTHER SEBORRHEIC KERATOSIS 04/11/2014 PENN DO, RAFIA K 702.0 ACTINIC KERATOSIS 04/11/2014 PENN DO, RAFIA K 702.19 OTHER SEBORRHEIC KERATOSIS 04/11/2014 PENN DO, RAFIA K 702.0 ACTINIC KERATOSIS 04/11/2014 PENN DO, RAFIA K 702.19 OTHER SEBORRHEIC KERATOSIS 09/11/2014 ANNE DIRECTOR REHABILITATION PROGRAM, JOSÉ LUIS S 307.42 INSOMNIA, PSYCHOPHYSIOLOGICAL 09/11/2014 ANNE DIRECTOR REHABILITATION PROGRAM, JOSÉ LUIS S 782.3 EDEMA 09/11/2014 ANNE DIRECTOR REHABILITATION PROGRAM, JOSÉ LUIS S 307.42 INSOMNIA, PSYCHOPHYSIOLOGICAL 09/11/2014 ANNE DIRECTOR REHABILITATION PROGRAM, JOSÉ LUIS S 782.3 EDEMA 09/11/2014 ANNE DIRECTOR REHABILITATION PROGRAM, JOSÉ LUIS S 307.42 INSOMNIA, PSYCHOPHYSIOLOGICAL 09/11/2014 ANNE DIRECTOR REHABILITATION PROGRAM, JOSÉ LUIS S 782.3 EDEMA 09/11/2014 PENN DO, RAFIA K 307.42 INSOMNIA, PSYCHOPHYSIOLOGICAL 09/11/2014 PENN DO, RAFIA K 782.3 EDEMA 09/11/2014 PENN DO, RAFIA K 307.42 INSOMNIA, PSYCHOPHYSIOLOGICAL 09/11/2014 RAFIA PENN DO K 782.3 EDEMA 12/12/2014 JOSÉ LUIS RODRÍGUEZ APRN 780.79 FATIGUE 12/12/2014 RAFIA EPNN DO 780.79 FATIGUE 12/12/2014 RAFIA PENN DO K 780.79 FATIGUE 02/06/2015 RAFIA PENN DO K 715.04 OSTEOARTHROSIS GENERALIZED INVOLVING HAND 02/06/2015 ISAMAR MOSS RAFIA K 719.43 PAIN- WRIST 06/04/2016 Ot 709.9 SKIN DISORDER NOS 06/04/2016 Ot V72.63 PRE- PROCEDURAL LABORATORY EXAMINATION 06/04/2016 Ot V74.8 SCREEN- BACTERIAL DIS NEC 06/04/2016 MARTIN HUMPHREYS, BOBO Lucio Ot E11.9 TYPE 2 DIABETES MELLITUS WITHOUT COMPLIC 06/04/2016 MARTIN HUMPHREYS, BOBO Lucio Ot L02.414 CUTANEOUS ABSCESS OF LEFT UPPER LIMB 06/05/2016 BOBO SALAZAR MD Ot E11.9 TYPE 2 DIABETES MELLITUS WITHOUT COMPLIC 06/05/2016 MARTIN HUMPHREYS, BOBO Lcuio Ot L02.414 CUTANEOUS ABSCESS OF LEFT UPPER LIMB 06/19/2016 MARTIN HUMPHREYS, BOBO Lucio Ot E11.9 TYPE 2 DIABETES MELLITUS WITHOUT COMPLIC 06/19/2016 MARTIN HUMPHREYS, BOBO Lucio Ot L02.414 CUTANEOUS ABSCESS OF LEFT UPPER LIMB Procedures Code Description [place] [id number] ROUTINE VENIPUNCTURE 01/24/2013 16025 CMP 01/24/2013 [id number] GFR CALC (RESULT ONLY) 01/24/2013 52325 LIPID PANEL 01/24/2013 Family Pr Nixon Rankin 01/25/2013 BOBO GAGE 02/08/2013 55485 A1C (IN-HOUSE) 05/06/2013 99873 OXIMETRY - OVERNIGHT 09/13/2013 92622 ROUTINE VENIPUNCTURE 09/20/2013 75362 LIPID PANEL 09/20/2013 38408 OXIMETRY 09/22/2013 AMERITOX AMER[employer]OX DRUG SCREEN 03/02/2014 75207 ROUTINE VENIPUNCTURE 03/21/2014 [id number] GFR CALC (RESULT ONLY) 03/21/2014 36792 CMP 03/21/2014 49848 LIPID PANEL 03/21/2014 71414 PSA FREE AND TOTAL 03/21/2014 GENERAL S JOSEE CONSTANTINO 03/21/2014 16020 CRYOTHERAPY OF SKIN 04/11/2014 91545 [employer] 07/27/2014 78917 ROUTINE VENIPUNCTURE 09/27/2014 97268 URINE DRUG SCREEN (IN-HOUSE ) 09/27/2014 13987 LIPID PANEL 09/27/2014 [id number] GFR CALC (RESULT ONLY) 09/27/2014 80687 CMP 09/27/2014 26670 CBC 09/27/2014 77159 [employer] 12/13/2014 89106 LIPID PANEL 12/13/2014 08122 TESTOSTERONE TOTAL MALES 12/13/2014 39143 THERAPUTIC INJ SQ/IM 01/03/2015 23479 XRAY WRIST L COMP MIN 3 VIEWS [...] - 05/14/18 08:05 INSULIN 40.6 uIU/mL 2.0-19.6 LIPID PANEL - 10/19/18 08:19 CHOLESTEROL, TOTAL 229 mg/dL <200 HDL CHOLESTEROL 40 mg/dL >40 TRIGLYCERIDES 356 mg/dL <150 LDL-CHOLESTEROL 138 mg/dL (calc) NRG CHOL/HDLC RATIO 5.7 (calc) <5.0 NON HDL CHOLESTEROL 189 mg/dL (calc) <130 Complete blood count (CBC) with automated white blood cell (WBC) differential - 10/30/18 15:58 Blood leukocytes automated count (number/volume) 7.1 10*3/uL 4.3-11.0 Blood erythrocytes automated count (number/volume) 5.16 10*6/uL 4.35-5.85 Venous blood hemoglobin measurement (mass/volume) 15.2 g/dL 13.3-17.7 Blood hematocrit (volume fraction) 46 % 40-54 Automated erythrocyte mean corpuscular volume 89 [foz_us] 80-99 Automated erythrocyte mean corpuscular hemoglobin (mass per erythrocyte) 30 pg 25-34 Automated erythrocyte mean corpuscular hemoglobin concentration measurement ( mass/volume) 33 g/dL 32-36 Automated erythrocyte distribution width ratio 14.1 % 10.0-14.5 Automated blood platelet count (count/volume) 235 10*3/uL 130-400 Automated blood platelet mean volume measurement 9.4 [foz_us] 7.4-10.4 Automated blood neutrophils/100 leukocytes 50 % 42-75 Automated blood lymphocytes/100 leukocytes 33 % 12-44 Blood monocytes/100 leukocytes 14 % 0-12 Automated blood eosinophils/100 leukocytes 3 % 0-10 Automated blood basophils/100 leukocytes 0 % 0-10 Blood neutrophils automated count (number/volume) 3.5 10*3 1.8-7.8 Blood lymphocytes automated count (number/volume) 2.4 10*3 1.0-4.0 Blood monocytes automated count (number/volume) 1.0 10*3 0.0-1.0 Automated eosinophil count 0.2 10*3/uL 0.0-0.3 Automated blood basophil count (count/volume) 0.0 10*3/uL 0.0-0.1 Comprehensive metabolic panel - 10/30/18 15:58 Serum or plasma sodium measurement (moles/volume) 139 mmol/L 135-145 Serum or plasma potassium measurement (moles/volume) 3.8 mmol/L 3.6-5.0 Serum or plasma chloride measurement (moles/volume) 103 mmol/L 98-107 Carbon dioxide 22 mmol/L 21-32 Serum or plasma anion gap determination (moles/volume) 14 mmol/L 5-14 Serum or plasma urea nitrogen measurement (mass/volume) 17 mg/dL 7-18 Serum or plasma creatinine measurement (mass/volume) 0.80 mg/dL 0.60-1.30 Serum or plasma urea nitrogen/creatinine mass ratio 21 NRG Serum or plasma creatinine measurement with calculation of estimated glomerular filtration rate > NRG Serum or plasma glucose measurement (mass/volume) 124 mg/dL 70-105 Serum or plasma calcium measurement (mass/volume) 9.2 mg/dL 8.5-10.1 Serum or plasma total bilirubin measurement (mass/volume) 0.5 mg/dL 0.1-1.0 Serum or plasma alkaline phosphatase measurement (enzymatic activity/volume) 45 U/L 40-136 Serum or plasma aspartate aminotransferase measurement (enzymatic activity/ volume) 31 U/L 5-34 Serum or plasma alanine aminotransferase measurement (enzymatic activity/volume ) 40 U/L 0-55 Serum or plasma protein measurement (mass/volume) 7.5 g/dL 6.4-8.2 Serum or plasma albumin measurement (mass/volume) 4.1 g/dL 3.2-4.5 CALCIUM CORRECTED 9.1 mg/dL 8.5-10.1 Magnesium - 10/30/18 15:58 Magnesium 2.1 mg/dL 1.8-2.4 Serum or plasma troponin i.cardiac measurement (mass/volume) - 10/30/18 15:58 Serum or plasma troponin i.cardiac measurement (mass/volume) < ng/ mL <0.30 Myoglobin, serum - 10/30/18 15:58 Myoglobin, serum 64.4 ng/mL 10.0-92.0 PT panel in platelet poor plasma by coagulation assay - 10/30/18 15:58 Prothrombin time (PT) in platelet poor plasma by coagulation assay 13.0 s 12.2-14.7 INR in platelet poor plasma or blood by coagulation assay 1.0 0.8-1.4 Activated partial thromboplastin time (aPTT) in platelet poor plasma bycoagulation assay - 10/30/18 15:58 Activated partial thromboplastin time (aPTT) in platelet poor plasma bycoagulation assay 32 s 24-35 Serum or plasma troponin i.cardiac measurement (mass/volume) - 10/31/18 00:30 Serum or plasma troponin i.cardiac measurement (mass/volume) < ng/ mL <0.30 Complete blood count (CBC) with automated white blood cell (WBC) differential - 10/31/18 05:51 Blood leukocytes automated count (number/volume) 9.4 10*3/uL 4.3-11.0 Blood erythrocytes automated count (number/volume) 5.25 10*6/uL 4.35-5.85 Venous blood hemoglobin measurement (mass/volume) 15.5 g/dL 13.3-17.7 Blood hematocrit (volume fraction) 46 % 40-54 Automated erythrocyte mean corpuscular volume 88 [foz_us] 80-99 Automated erythrocyte mean corpuscular hemoglobin (mass per erythrocyte) 30 pg 25-34 Automated erythrocyte mean corpuscular hemoglobin concentration measurement ( mass/volume) 33 g/dL 32-36 Automated erythrocyte distribution width ratio 14.2 % 10.0-14.5 Automated blood platelet count (count/volume) 246 10*3/uL 130-400 Automated blood platelet mean volume measurement 9.3 [foz_us] 7.4-10.4 Automated blood neutrophils/100 leukocytes 85 % 42-75 Automated blood lymphocytes/100 leukocytes 13 % 12-44 Blood monocytes/100 leukocytes 1 % 0-12 Automated blood eosinophils/100 leukocytes 0 % 0-10 Automated blood basophils/100 leukocytes 0 % 0-10 Blood neutrophils automated count (number/volume) 8.0 10*3 1.8-7.8 Blood lymphocytes automated count (number/volume) 1.3 10*3 1.0-4.0 Blood monocytes automated count (number/volume) 0.1 10*3 0.0-1.0 Automated eosinophil count 0.0 10*3/uL 0.0-0.3 Automated blood basophil count (count/volume) 0.0 10*3/uL 0.0-0.1 Comprehensive metabolic panel - 10/31/18 05:51 Serum or plasma sodium measurement (moles/volume) 139 mmol/L 135-145 Serum or plasma potassium measurement (moles/volume) 4.3 mmol/L 3.6-5.0 Serum or plasma chloride measurement (moles/volume) 105 mmol/L 98-107 Carbon dioxide 21 mmol/L 21-32 Serum or plasma anion gap determination (moles/volume) 13 mmol/L 5-14 Serum or plasma urea nitrogen measurement (mass/volume) 14 mg/dL 7-18 Serum or plasma creatinine measurement (mass/volume) 0.79 mg/dL 0.60-1.30 Serum or plasma urea nitrogen/creatinine mass ratio 18 NRG Serum or plasma creatinine measurement with calculation of estimated glomerular filtration rate > NRG Serum or plasma glucose measurement (mass/volume) 173 mg/dL 70-105 Serum or plasma calcium measurement (mass/volume) 8.9 mg/dL 8.5-10.1 Serum or plasma total bilirubin measurement (mass/volume) 0.5 mg/dL 0.1-1.0 Serum or plasma alkaline phosphatase measurement (enzymatic activity/volume) 44 U/L 40-136 Serum or plasma aspartate aminotransferase measurement (enzymatic activity/ volume) 26 U/L 5-34 Serum or plasma alanine aminotransferase measurement (enzymatic activity/volume ) 39 U/L 0-55 Serum or plasma protein measurement (mass/volume) 7.3 g/dL 6.4-8.2 Serum or plasma albumin measurement (mass/volume) 3.9 g/dL 3.2-4.5 CALCIUM CORRECTED 9.0 mg/dL 8.5-10.1 Lipid 1996 panel - 10/31/18 05:51 Serum or plasma triglyceride measurement (mass/volume) 141 mg/dL <150 Serum or plasma cholesterol measurement (mass/volume) 232 mg/dL < 200 Serum or plasma cholesterol in HDL measurement (mass/volume) 45 mg/ dL 40-60 Cholesterol in LDL [mass/volume] in serum or plasma by direct assay 161 mg/dL 1-129 Serum or plasma cholesterol in VLDL measurement (mass/volume) 28 mg/ dL 5-40 Serum or plasma troponin i.cardiac measurement (mass/volume) - 10/31/18 05:51 Serum or plasma troponin i.cardiac measurement (mass/volume) < ng/ mL <0.30 Encounters ACCT No. Visit Date/Time Discharge Status Pt. Type Provider Facility Loc./Unit Complaint [id number] 02/06/2015 09:23:00 02/06/2015 23:59:59 [facility] Outpatient RAFIA PENN DO [id number] 01/03/2015 08:33:00 01/03/2015 23:59:59 [facility] Outpatient RAFIA PENN DO [id number] 12/13/2014 08:47:00 12/13/2014 23:59:59 [facility] Outpatient JOSÉ LUIS RODRÍGUEZ APRN [id number] 10/03/2014 09:28:00 10/03/2014 23:59:59 [facility] Outpatient JOSÉ LUIS RODRÍGUEZ APRN [id number] 09/27/2014 08:26:00 09/27/2014 23:59:59 [facility] Outpatient JOSÉ LUIS RODRÍGUEZ APRN [id number] 07/25/2014 10:45:00 07/25/2014 23:59:59 [facility] Outpatient JOSÉ LUIS RODRÍGUEZ APRN [id number] 05/02/2014 08:52:00 05/02/2014 23:59:59 [facility] JOSÉ LUIS RODRÍGUEZ APRN [id number] 04/11/2014 13:41:00 04/11/2014 23:59:59 [facility] Outpatient NIXON RANKIN APRN [id number] 04/11/2014 13:41:00 04/11/2014 23:59:59 [facility] Outpatient NIXON RANKIN APRN [id number] 03/21/2014 14:38:00 03/21/2014 23:59:59 [facility] Outpatient NIXON RANKIN APRN [id number] 02/28/2014 09:44:00 02/28/2014 23:59:59 [facility] Outpatient ALEXANDREA HUMPHREYS, LIZETT [id number] 09/20/2013 09:55:00 09/20/2013 23:59:59 [facility] Outpatient JOSÉ LUIS RODRÍGUEZ APRN [id number] 05/06/2013 08:58:00 05/06/2013 23:59:59 [facility] Outpatient JOSÉ LUIS RODRÍGUEZ APRN [id number] 05/06/2013 08:58:00 05/06/2013 23:59:59 [facility] Outpatient JOSÉ LUIS RODRÍGUEZ APRN [id number] 03/07/2013 14:28:00 03/07/2013 23:59:59 [facility] Outpatient [id number] 02/07/2013 16:01:00 02/07/2013 23:59:59 [facility] Outpatient NIXON RANKIN APRN [id number] 01/24/2013 08:16:00 01/24/2013 23:59:59 [facility] Outpatient JOSÉ LUIS RODRÍGUEZ APRN [id number] 08/24/2012 15:17:00 08/24/2012 23:59:59 [facility] Outpatient [id number] 04/11/2013 16:08:00 Document Registration [id number] 10/31/2016 13:05:00 Document Registration [id number] 05/26/2017 09:09:00 Document Registration [id number] 10/30/2018 17:00:00 11/01/2018 13:20:00 DIS Inpatient JOAN MANJARREZ MD [facility] 4TH ACUTE EXACERBATION OF COPD,CHEST PAIN [id number] 09/30/2017 09:51:00 09/30/2017 23:59:59 CLS Preadmit GERMANIA HUMPHREYS, NELDA [facility] RAD R93.8 ABNORMAL ULTRASOUND [id number] 06/04/2016 13:02:00 06/04/2016 18:43:00 DIS Outpatient BOBO SALAZAR MD [facility] [id number] 03/24/2013 08:19:00 03/24/2013 11:45:00 DIS Outpatient BOBO SALAZAR MD [facility] [id number] 03/21/2013 10:58:00 Document Registration [id number] 06/21/2012 20:14:00 Document Registration [id number] 10/19/2018 08:00:00 10/19/2018 23:59:59 [facility] Outpatient JOSÉ LUIS RODRÍGUEZ APRN [facility] [id number] 10/19/2018 08:00:00 Document Registration [id number] 05/14/2018 08:20:00 Document Registration [id number] 05/12/2018 09:00:00 Document Registration [id number] 09/10/2017 08:00:00 Document Registration [id number] 08/07/2016 18:05:00 Document Registration [id number] 12/23/2016 08:36:00 Document Registration [id number] 09/11/2017 08:06:00 Document Registration
== END 2018-11-01 12:04 | disposition home or self-care (01) ==
LOC: EDUNIT# 15:48 → ER 15:49 → UNDOADMIN 17:00 → 4TH 17:00 → UNDODISIN 11-01 13:20
PROVIDERS: ADMIT Family Medicine; ATTEND Family Medicine
DX: J44.1 Chronic obstructive pulmonary disease with (acute) exacerbation (principal); J18.9 Pneumonia, unspecified organism; L27.0 Generalized skin eruption due to drugs and medicaments taken internally; T36.1X5A Adverse effect of cephalosporins and other beta-lactam antibiotics, initial encounter; Z87.891 Personal history of nicotine dependence
CPT/HCPCS: 36415; 71045; 80053; 80061; 83735; 83874; 84484; 85025; 85610; 85730; 93005; 93041; 96372; 96374; 96375; G0378

== ENCOUNTER → 2019-05-06 | Outpatient (CLI) | payer MEDICARE ==
[~2019-05-06] MED LIST changes: +AZIT250T12 PO; -HYDR-3454 PO; +HYDR-3455 PO; +PRD10T PO
== END ==
LOC: CARD 13:10
PROVIDERS: ATTEND Internal Medicine Cardiovascular Disease
DX: I10 Essential (primary) hypertension (principal); E78.5 Hyperlipidemia, unspecified; J44.9 Chronic obstructive pulmonary disease, unspecified; R06.02 Shortness of breath; R07.9 Chest pain, unspecified
CPT/HCPCS: 93306

== ENCOUNTER 2019-07-07 13:53 | Emergency (ER) | payer MEDICARE ==
[~2019-07-07] VITALS: Ht 172.7 cm; Wt 108.9 kg
[2019-07-07] MEDS ORDERED: LIDOCAINE 1% INJ 20 ML 20 ML VIAL ONE (14:38)
[2019-07-07] MEDS ORDERED: LIDOCAINE 1% INJ 20 ML 20 ML VIAL INJ STA (14:42)
--- NOTE | 2019-07-07 14:49 | ED Integumentary General ---
General Chief Complaint: Skin/Wound Problems Stated Complaint: ABSCESS Nursing Triage Note: Patient c/o painful raised red area on the center of his back. The wound has a small amount of drainage. Patient states that he has had this wound for a couple of weeks and was seen by his PCP and started on a course of antibiotics for 5 days. He completed the antibiotic 4 days ago and the wound has only worsened. Source: patient, spouse History of Present Illness Date Seen by Provider: Jul 07, 2019 Time Seen by Provider: 14:04 Initial Comments 68-year-old male presenting with painful raised erythematous area on the middle of his low back. It has been there for over a week. He had been seen in the clinic in given a 5 day course of cephalexin to try and treat the area. However he has finished that course of medicine and it has continued to worsen in the last few days off of the medication. He denies any fever or chills. He has had some purulent drainage from the raised red spot on his back. He does have a history of MRSA. He had been trying some printed on the wound to see if it would help it drain. He does have a history of getting glands and sebaceous cysts like this infected on his back. Allergies and Home Medications Allergies Coded Allergies: ceftriaxone (Verified Allergy, Intermediate, ITCHING, 10/30/18) Home Medications Atorvastatin Calcium 40 Mg Tablet, 40 MG PO DAILY, (Reported) Azithromycin 250 Mg Tablet, 250 MG PO DAILY Prescribed by: JOAN MANJARREZ on 11/01/18 1204 Budesonide/Formoterol Fumarate 10.2 Gm Hfa.aer.ad, 2 PUFF IH BID, (Reported) Hydrocodone/Acetaminophen 1 Each Tablet, 1 EACH PO Q4H PRN for PAIN Prescribed by: BOBO SALAZAR on 06/04/16 1723 Ipratropium/Albuterol Sulfate 14.7 Gm Aer.w.adap, 2 PUFF IH QID, (Reported) Metformin HCl 1,000 Mg Tablet, 1,000 MG PO BID, (Reported) Prednisone 10 Mg Tab, 0 PO UD Take 6 tabs(60mg)daily, decrease by 1 tab(10mg) every other day. Prescribed by: JOAN MANJARREZ on 11/01/18 1100 Sulfamethoxazole/Trimethoprim 1 Each Tablet, 1 EACH PO BID Prescribed by: JASSON PANIAGUA on 07/07/19 1512 Patient Home Medication List Home Medication List Reviewed: Yes Review of Systems Review of Systems Constitutional: No chills, No fever EENTM: no symptoms reported Respiratory: no symptoms reported Cardiovascular: no symptoms reported Gastrointestinal: no symptoms reported Genitourinary: no symptoms reported Musculoskeletal: no symptoms reported Skin: see HPI Past Rwnupos-Jaguxy-Itvwii Hx Past Med/Social Hx: Reviewed Nursing Past Med/Soc Hx Patient Social History Alcohol Use: Regular Use Number of Drinks Today: GG Alcohol Beverage of Choice: Whiskey, [place] Recreational Drug Use: No Smoking Status: Never a Smoker Former Smoker, Quit: Oct 30, 2014 2nd Hand Smoke Exposure: No Recent Foreign Travel: No Contact w/Someone Who Travel: No Recent Infectious Disease Expo: No Recent Hopitalizations: No Physical Abuse: No Sexual Abuse: No Mistreated: No Fear: No Immunizations Up To Date Tetanus Booster (TDap): Unknown PED Vaccines UTD: Yes Date of Pneumonia Vaccine: Aug 30, 2018 Seasonal Allergies Seasonal Allergies: No Past Medical History Surgeries: No (Wound debriedment) Respiratory: Yes COPD Cardiac: No Hypertension Neurological: No Sexually Transmitted Disease: No HIV/AIDS: No Genitourinary: No Gastrointestinal: No Musculoskeletal: No Endocrine: Yes (patient states is border line) Diabetes, Non-Insulin dep HEENT: No Cancer: Yes Skin Did You Recieve Any Treatments: Yes What Type of Treatment Did You: Surgical Intervention Psychosocial: No Integumentary: Yes (HX of Stap) Blood Disorders: No Adverse Reaction/Blood Tranf: No Physical Exam Vital Signs Vital Signs - First Documented 07/07/19 13:58 Temp 98.0 Pulse 93 Resp 18 B/P (MAP) 152/77 (102) Pulse Ox 95 O2 Delivery Room Air Capillary Refill : Less Than 3 Seconds General Appearance: WD/WN, no apparent distress Neck: non-tender, full range of motion, supple, normal inspection Cardiovascular: normal peripheral pulses, regular rate, rhythm Respiratory: chest non-tender, lungs clear, normal breath sounds Back: no vertebral tenderness, other (erythematous indurated lesion in lumbar area that has purulent drainage from central fluctuant part. diameter is approximately 7 cm) Skin: warm/dry, other (erythematous indurated swollen tender area over central lumbar region of back that has fluctuant center draining purulent material) Skin Problem Location: other (lower back) Skin Problem Character: abscess, drainage, erythema, swelling, tenderness, warm Procedures/Interventions I&D : Site: lumbar area of back in middle of back Blade Size: 11 I & D Procedure: betadine prep, sterile dressing applied Progress After obtaining verbal informed consent from the patient the wound was cleaned with Betadine swabs. It was then anesthetized with 1% plain lidocaine. Then using an 11 blade scalpel the wound was incised. A small amount of serosanguineous drainage was obtained. Loculations were attempted a broken up with a Kellys forceps. He had no other significant drainage from the wound. Will treat with Bactrimd DS and follow up with clinic next week if not better by Thursday or Thursday Progress/Results/Core Measures Results/Orders My Orders Orders - JASSON PANIAGUA MD Wound Culture (07/07/19 14:41) Lidocaine 1% Inj 20 Ml (Xylocaine 1% Inj (07/07/19 14:42) Lidocaine 1% Inj 20 Ml (Xylocaine 1% Inj (07/07/19 14:38) Vital Signs/I&O 07/07/19 07/07/19 13:58 15:31 Temp 98.0 98.2 Pulse 93 69 Resp 18 18 B/P (MAP) 152/77 (102) 142/83 (102) Pulse Ox 95 95 O2 Delivery Room Air Room Air Blood Pressure Mean: 102 Progress Progress Note : Progress Note With just some light palpation he had purulent drainage coming from the abscess on his back. A wound culture was obtained and sent. He was verbally consented for a incision and drainage of the remaining wound to attempt relieving pressure. However the wound did not yield additional purulent discharge. It was mainly serosanguineous drainage that came out. Departure Impression Primary Impression: Cutaneous abscess of back excluding buttocks Additional Impression: Hx MRSA infection Disposition: 01 HOME, SELF-CARE Condition: Stable Departure-Patient Inst. Decision time for Depature: 15:11 Referrals: [facility]/JENNIFER (PCP) Primary Care Physician JOSÉ LUIS RODRÍGUEZ (Family) Primary Care Physician Patient Instructions: Abscess Incision and Drainage (DC), Skin [place] (DC), Cellulitis (Skin Infection), Adult (DC), Debridement of a Wound or Burn (DC), Methicillin-Resistant Staphylococcus aureus (MRSA) Add. Discharge Instructions: Take full course of antibiotics and follow up with clinic if not improving by Thursday May apply warm pack for 5-10 minutes every few hours while awake to help the area come to a head and drain. All discharge instructions reviewed with patient and/or family. Voiced understanding. Scripts Sulfamethoxazole/Trimethoprim (Bactrim Ds Tablet) 1 Each Tablet 1 EACH PO BID for abscess for 10 Days, #20 TAB 0 Refills Prov: JASSON PANIAGUA MD 07/07/19 JASSON PANIAGUA MD Jul 07, 2019 14:49
[2019-07-07] MEDS ORDERED: SULF1TAB35 PO (15:12)
[2019-07-07 15:31] VITALS: BP 142/83
--- OUTSIDE RECORDS SUMMARY | 2019-07-08 00:14 | XMS REPORT ---
Author Author JOSÉ LUIS RODRÍGUEZ Organization [facility] Address [address] [place] [address] Care Team Providers Care Audit Mgr Name Role Phone JOSÉ LUIS RODRÍGUEZ Unavailable PROBLEMS Type Condition ICD9-CM Code FGF97-XT Code Onset Dates Condition Status SNOMED Code Problem Hypertriglyceridemia E78.1 Active 619782684 Problem Family history of diabetes mellitus Z83.3 Active 240454887 Problem Hyperinsulinemia E16.1 Active 19882226 Problem Insomnia, unspecified type G47.00 Active 704044059 Problem Chronic pain G89.29 Active 61839947 Problem Dysthymia F34.1 Active 33808747 Problem History of MRSA infection Z86.14 Active 344642546 Problem Osteoarthritis M19.90 Active 831552956 Problem Chronic obstructive pulmonary disease, unspecified COPD type J44.9 Active 09180326 Problem Essential hypertension I10 Active 47256148 Problem Primary insomnia F51.01 Active 3965877 ALLERGIES No Information ENCOUNTERS Encounter Location Date Diagnosis [facility] [id number] [place] [address] May, [facility] [address] [address] Apr, [facility] [id number] [place] [address] Apr, Chronic pain G89.29 [facility] [address] [address] March, Chronic pain G89.29 [facility] [id number] [place] [address] March, [facility] [id number] [place] [address] March, [facility] [id number] [place] [address] March, Bronchitis J40 and Shortness of breath R06.02 [facility] [id number] [place] [address] Feb, Chronic pain G89.29 [facility] [address] [address] Feb, Primary insomnia F51.01 [facility] [address] [address] Feb, Chest pain, unspecified type R07.9 [facility] [address] [address] Feb, Insomnia, unspecified type G47.00 [facility] [facility] [address] [address] Feb, [facility] [facility] [address] [address] Feb, Hypertriglyceridemia E78.1 ; Chronic narcotic use F11.90 ; Essential hypertension I10 ; Encounter for immunization Z23 ; Chronic obstructive pulmonary disease, unspecified COPD type J44.9 ; Hyperinsulinemia E16.1 ; Epistaxis R04.0 ; Insomnia, unspecified type G47.00 and Chest pain, unspecified type R07.9 [facility] [id number] [place] [address] Jan, Chronic pain G89.29 and Insomnia, unspecified type G47.00 [facility] [id number] [place] [address] Dec, Chronic pain G89.29 and Insomnia, unspecified type G47.00 [facility] [id number] [place] [address] Dec, Chronic pain G89.29 and Insomnia, unspecified type G47.00 [facility] [address] [address] Nov, Chronic pain G89.29 and Insomnia, unspecified type G47.00 [facility] [id number] [place], [place] [address] Oct, Chronic pain G89.29 and Insomnia, unspecified type G47.00 [facility] [id number] [place] [address] Oct, [facility] [address] [address] Oct, Pneumonia of left lower lobe due to infectious organism J18.1 and Chronic obstructive pulmonary disease, unspecified COPD type J44.9 [facility] [id number] [place] [address] Oct, Hypertriglyceridemia E78.1 [facility] [id number] [place] [address] Sep, Hypertriglyceridemia E78.1 [facility] [id number] [place] [address] Sep, Chronic pain G89.29 and Insomnia, unspecified type G47.00 [facility] [id number] [place] [address] 2018 Seborrheic keratoses L82.1 and Sebaceous cyst L72.3 [facility] [id number] [place] [address] 16 Aug, 2018 Chronic pain G89.29 and Insomnia, unspecified type G47.00 [facility] [id number] [place] [address] 18 Jul, 2018 Seborrheic keratoses L82.1 [facility] [id number] [place] [address] 14 Jul, 2018 Chronic pain G89.29 and Insomnia, unspecified type G47.00 [facility] [id number] [place] [address] Jun, Chronic pain G89.29 and Insomnia, unspecified type G47.00 [facility] [id number] [place] [address] Jun, Seborrheic keratoses L82.1 [facility] [id number] [place] [address] May, Dysthymia F34.1 ; Chronic obstructive pulmonary disease, unspecified COPD type J44.9 ; Chronic pain G89.29 ; Insomnia, unspecified type G47.00 ; BMI 40.0-44.9, adult Z68.41 and Other seborrheic keratosis L82.1 [place] [address] [place] [address] May, Chronic pain G89.29 and Insomnia, unspecified type G47.00 [place] [address] [address] Apr, Hypertriglyceridemia E78.1 [facility] [facility] [address] [address] Apr, Chronic pain G89.29 and Insomnia, unspecified type G47.00 [facility] [id number] [place] [address] Apr, Hyperinsulinemia E16.1 ; Hypertriglyceridemia E78.1 and Fatigue, unspecified type R53.83 [facility] [id number] [place] [address] Apr, Hyperinsulinemia E16.1 ; Chronic pain G89.29 ; Primary insomnia F51.01 ; Chronic obstructive pulmonary disease, unspecified COPD type J44.9 ; Dysthymia F34.1 ; Hypertriglyceridemia E78.1 ; Fatigue, unspecified type R53.83 and Rash R21 [facility] [id number] [place] [address] March, Chronic pain G89.29 and Insomnia, unspecified type G47.00 [facility] [address] [address] March, Insomnia, unspecified type G47.00 [facility] [id number] [place] [address] Feb, Chronic pain G89.29 [facility] [id number] [place] [address] Feb, Chronic pain G89.29 [facility] [id number] [place] [address] Jan, Chronic pain G89.29 [facility] [id number] [place] [address] Dec, Chronic pain G89.29 [facility] [id number] [place] [address] Nov, Chronic pain G89.29 and Insomnia, unspecified type G47.00 [facility] [id number] [place] [address] Oct, Insomnia, unspecified type G47.00 ; Chronic pain G89.29 and Colon cancer screening Z12.11 [facility] [id number] [place] [address] Oct, Chronic pain G89.29 [facility] [id number] [place] [address] Sep, Chronic pain G89.29 and Insomnia, unspecified type G47.00 [facility] [id number] [place] [address] Sep, Chronic pain G89.29 [facility] [id number] [place] [address] Sep, [facility] [address] [address] Aug, Medicare welcome exam Z00.00 ; Encounter for immunization Z23 ; Colon cancer screening Z12.11 and Encounter for screening for lung cancer Z12.2 [facility] [id number] [place] [address] Aug, [place] [address] [address] Aug, Chronic pain G89.29 and Insomnia, unspecified type G47.00 [place] [address] [address] Aug, Hypertriglyceridemia E78.1 [facility] [id number] [place] [address] Jul, Chronic pain G89.29 and Insomnia, unspecified type G47.00 [facility] [id number] [place] [address] Jun, Hypertriglyceridemia E78.1 [facility] [id number] [place] [address] Jun, Chronic pain G89.29 and Insomnia, unspecified type G47.00 [facility] [id number] [place] [address] Jun, [facility] [id number] [place] [address] Jun, [facility] [id number] [place] [address] May, Hyperinsulinemia E16.1 ; Chronic pain G89.29 ; Insomnia, unspecified type G47.00 and Rash R21 [facility] [facility] [id number] [place] [address] May, Chronic pain G89.29 [facility] [id number] [place] [address] May, Hypertriglyceridemia E78.1 [facility] [id number] [place] [address] Apr, Chronic pain G89.29 [facility] [id number] [place] [address] Apr, Chronic pain G89.29 ; Hyperinsulinemia E16.1 ; Hypertriglyceridemia E78.1 and Primary insomnia F51.01 [facility] [id number] [place] [address] March, Chronic pain G89.29 [facility] [address] [address] March, Chronic pain G89.29 [facility] [id number] [place] [address] Feb, [facility] [id number] [place] [address] Feb, Chronic pain G89.29 [facility] [id number] [place] [address] Jan, Chronic pain G89.29 [facility] [id number] [place] [address] Dec, Chronic pain G89.29 [facility] [id number] [place] [address] Dec, [facility] [id number] [place] [address] Nov, Hypertriglyceridemia E78.1 [facility] [id number] [place] [address] Nov, [facility] [id number] [place] [address] Nov, Chronic pain G89.29 ; Hypertriglyceridemia E78.1 and Chronic obstructive pulmonary disease, unspecified COPD type J44.9 [facility] [id number] [place] [address] Nov, Chronic pain G89.29 [facility] [id number] [place] [address] Oct, Chronic pain G89.29 [facility] [place] [id number] [place] [address] Oct, [place] [address] [address] Sep, Chronic obstructive pulmonary disease, unspecified COPD type J44.9 and Abscess L02.91 [place] [address] [address] 16 Sep, 2016 Chronic pain G89.29 [place] [address] [address] Aug, Chronic pain G89.29 [place] [address] [address] Aug, Chronic pain G89.29 [place] [address] [address] Aug, Cutaneous horn L85.8 and Skin tag L91.8 [place] [id number] [place] [address] Jul, [place] [address] [address] Jul, Hypertriglyceridemia E78.1 [place] [address] [address] 07 Jul, 2016 Other chronic pain G89.29 ; Essential hypertension I10 ; Hyperinsulinemia E16.1 ; Hyperlipidemia, unspecified hyperlipidemia type E78.5 and Cutaneous horn L85.8 [place] [id number] [place] [address] Jun, Chronic pain G89.29 [place] [address] [address] May, Chronic pain G89.29 [place] [address] [address] May, [facility] [address] [address] May, Skin infection L08.9 [facility] [id number] [place] [address] Apr, Chronic pain G89.29 [facility] [id number] [place] [address] Apr, [facility] [id number] [place] [address] Apr, Chronic pain G89.29 [facility] [id number] [place] [address] March, [facility] [id number] [place] [address] Feb, Chronic pain G89.29 ; Hyperinsulinemia E16.1 and Hypertriglyceridemia E78.1 [facility] [id number] [place] [address] Feb, [facility] [id number] [place] [address] Jan, [facility] [id number] [place] [address] Dec, [facility] [id number] [place] [address] Nov, [facility] [id number] [place] [address] Oct, [facility] [id number] [place] [address] Oct, Hyperinsulinemia E16.1 [facility] [id number] [place] [address] Oct, Other chronic pain G89.29 ; Chronic obstructive pulmonary disease, unspecified COPD type J44.9 ; Insomnia, unspecified type G47.00 ; Hyperinsulinemia E16.1 and Essential hypertension I10 [facility] [id number] [place] [address] Sep, [facility] [id number] [place] [address] Aug, [facility] [id number] [place] [address] 30 Jul, 2015 [facility] [address] [address] Jul, [facility] [address] [address] Jul, Overweight 278.02 and Hyperinsulinemia 251.1 [facility] [address] [address] Jul, [facility] [address] [address] Jun, Skin tags, multiple acquired 701.9 [facility] [id number] [place] [address] Jun, Other chronic pain 338.29 ; Erectile dysfunction 607.84 ; Hyperinsulinemia 251.1 and Hypertension 401.9 [facility] [id number] [place] [address] Jun, [facility] [id number] [place] [address] Jun, [facility] [id number] [place] [address] Jun, [facility] [id number] [place] [address] May, Pure hyperglyceridemia 272.1 [facility] [id number] [place] [address] May, Pure hyperglyceridemia 272.1 [facility] [id number] [place] [address] May, [facility] [address] [address] May, Overgrown toenails 703.8 ; Seborrheic keratosis 702.19 ; Skin tag 701.9 ; Warts, genital 078.11 ; Cramps, extremity 729.82 ; Increased appetite 783.6 and Heat rash 705.1 [facility] [id number] [place] [address] May, [facility] [id number] [address] Apr, [facility] [id number] [place] [address] Apr, [facility] [id number] [place] [address] March, [facility] [id number] [place] [address] Feb, [facility] [address] [address] Feb, [facility] [id number] [address] Jan, [facility] [address] [address] Jan, [facility] [address] [address] Jan, [facility] [address] [address] Jan, [facility] [id number] [address] Jan, [facility] [address] [address] Jan, [facility] [id number] [place] [address], [place] [address] 16 Jan, 2014 [facility] [place] [facility] [address] [id number] [place] [address] 16 Jan, 2014 [facility] [place] [facility] [address] [id number] [place] [address] 10 Jan, 2014 [facility] [place] [facility] [address] [id number] [place] [address] 10 Jan, 2014 [facility] [place] [facility] [address] [id number] [place] [address] 05 Jan, 2015 [facility] [place] [facility] [address] [id number] [place] [address] 05 Jan, 2015 [facility] [place] [facility] [address] [id number] [place] [address] Dec, 2014 [facility] [place] [facility] [address] [id number] [place] [address] Dec, 2014 [facility] [place] [facility] [address] [id number] [place] [address] Dec, [facility] [place] [facility] [address] [id number] [place] [address] Dec, [facility] [place] [facility] [address] [facility] [id number] [place] [address] Dec, [facility] [place] [facility] [address] [id number] [place] [address] Dec, 2014 [facility] [place] [facility] [address] [id number] [place] [address] Dec, [facility] [place] [facility] [address] [id number] [place] [address] Dec, [facility] [place] [facility] [address] [facility] [id number] [place] [address] Nov, [facility] [place] [facility] [address] [id number] [place] [address] Nov, [facility] [place] [facility] [address] [id number] [place] [address] Nov, [facility] [place] [facility] [address] [id number] [place] [address] Nov, [facility] [place] [facility] [address] [id number] [place] [address] Nov, [facility] [place] [facility] [address] [id number] [place] [address] Nov, [facility] [place] [facility] [address] [id number] [place] [address] Nov, [facility] [place] [facility] [address] [id number] [place] [address] Nov, [facility] [place] [facility] [address] [id number] [place] [address] Oct, [facility] [place] [facility] [address] [id number] [address] Oct, [facility] [place] [facility] [address] [id number] [place] [address] Sep, [facility] [place] [facility] [address] [id number] [address] Sep, [facility] [place] [facility] [address] [id number] [address] Sep, [facility] [place] [facility] [address] [id number] [address] Sep, [facility] [place] [facility] [address] [id number] [place] [address] Aug, [facility] [place] [facility] [address] [id number] [place] [address] Aug, [facility] [place] [facility] [address] [id number] [place] [address] Aug, [facility] [place] [facility] [address] [id number] [place] [address] Aug, [facility] [place] [facility] [address] [id number] [place] [address] Aug, [facility] [place] [facility] [address] [id number] [place] [address] Aug, [facility] [place] [facility] [address] [id number] [place] [address] Aug, [facility] [place] [facility] [address] [id number] [place] [address] Aug, [facility] [place] [facility] [address] [id number] [place] [address] Jul, [facility] [place] [facility] [address] [id number] [place] [address] Jul, [facility] [place] [facility] [address] [id number] [place] [address] Jul, [facility] [place] [facility] [address] [id number] [place] [address] Jul, [facility] [place] [facility] [address] [id number] [place] [address] Jul, [facility] [place] [facility] [address] [id number] [place] [address] Jun, [facility] [place] [facility] [address] [id number] [place] [address] Jun, [facility] [place] [facility] [address] [id number] [place] [address] Jun, [facility] [place] [facility] [address] [id number] [place] [address] Jun, [facility] [place] [facility] [address] [id number] [place] [address] Jun, [facility] [place] [facility] [address] [id number] [place] [address] Jun, [facility] [place] [facility] [address] [id number] [place] [address] May, [facility] [place] [facility] [address] [id number] [place] [address] May, [facility] [place] [facility] [address] [id number] [place] [address] May, [facility] [place] [facility] [address] [id number] [place] [address] May, [facility] [place] [facility] [address] [id number] [place] [address] Apr, [facility] [place] [facility] [address] [id number] [place] [address] Apr, [facility] [place] [facility] [address] [id number] [place] [address] Apr, [facility] [place] [facility] [address] [id number] [place] [address] Apr, [facility] [place] [facility] [address] [id number] [place] [address] Apr, [facility] [place] [facility] [address] [id number] [place] [address] Apr, [facility] [place] [facility] [address] [id number] [place] [address] March, [facility] [place] [facility] [address] [id number] [place] [address] March, [facility] [place] [facility] [address] [id number] [place] [address] March, [facility] [place] [facility] [address] [id number] [place] [address] March, [facility] [place] [facility] [address] [id number] [place] [address] Feb, [facility] [place] [facility] [address] [id number] [place] [address] Feb, [facility] [place] [facility] [address] [id number] [place] [address] Feb, [facility] [place] [facility] [address] [id number] [place] [address] Feb, [facility] [place] [facility] [address] [id number] [place] [address] Feb, [facility] [place] [facility] [address] [id number] [place] [address] Feb, [facility] [place] [facility] [address] [id number] [place] [address] Feb, [facility] [place] [facility] [address] [id number] [place] [address] Feb, [facility] [place] [facility] [address] [id number] [place] [address] Feb, [facility] [place] [facility] [address] [id number] [place] [address] Feb, [facility] [place] [facility] [address] [id number] [place] [address] Feb, [facility] [place] [facility] [address] [id number] [place] [address] Feb, [facility] [place] [facility] [address] [id number] [place] [address] Feb, [facility] [place] [facility] [address] [id number] [place] [address] Feb, [facility] [place] [facility] [address] [id number] [place] [address] Feb, [facility] [place] [facility] [address] [address] [id number] [place] [address] Feb, [facility] [place] [facility] [address] [id number] [place] [address] Jan, [facility] [place] [facility] [address] [id number] [place] [address] Jan, [facility] [place] [facility] [address] [id number] [place] [address] Dec, [facility] [place] [facility] [address] [id number] [place] [address] Dec, [facility] [place] [facility] [address] [id number] [place] [address] Dec, [facility] [place] [facility] [address] [id number] [place] [address] Dec, [facility] [place] [facility] [address] [id number] [place] [address] Dec, [facility] [place] [facility] [address] [id number] [place] [address] Dec, [facility] [place] [facility] [address] [id number] [place] [address] Dec, [facility] [place] [facility] [address] [id number] [place] [address] Nov, [facility] [place] [facility] [address] [facility] [id number] [place] [address] Nov, [facility] [place] [facility] [address] [facility] [id number] [place] [address] Nov, [facility] [place] [facility] [address] [id number] [place] [address] Nov, [facility] [place] [facility] [address] [id number] [place] [address] Oct, [facility] [place] [facility] [address] [id number] [place] [address] Oct, [facility] [place] [facility] [address] [facility] [id number] [place] [address] Sep, [facility] [place] [facility] [address] [id number] [place] [address] Sep, [facility] [place] [facility] [address] [id number] [place] [address] Aug, [facility] [place] [facility] [address] [id number] [place] [address] Aug, [facility] [place] [facility] [address] [id number] [place] [address] Aug, [facility] [place] [facility] [address] [id number] [place] [address] Aug, [facility] [place] [facility] [address] [id number] [place] [address] Aug, [facility] [place] [facility] [address] [id number] [place] [address] Aug, [facility] [place] [facility] [address] [id number] [place] [address] Aug, [facility] [place] [facility] [address] [id number] [address] Aug, [facility] [place] [facility] [address] [id number] [address] Aug, [facility] [place] [facility] [address] [id number] [address] Aug, [facility] [place] [facility] [address] [id number] [address] Jun, [facility] [place] [facility] [address] [id number] [address] Jun, [facility] [place] [facility] [address] [id number] [place] [address] May, [facility] [place] [facility] [address] [id number] [address] Apr, [facility] [place] [facility] [address] [id number] [address] Apr, [facility] [place] [facility] [address] [id number] [place] [address] March, [facility] [address] [id number] [place] [address] Feb, [facility] [place] [facility] [address] [id number] [place] [address] Jan, [facility] [address] [id number] [place] [address] Jan, [facility] [place] [facility] [address] [id number] [place] [address] Dec, [facility] [address] [id number] [place] [address] Dec, [facility] [address] [id number] [place] [address] Nov, [facility] [address] [id number] [place] [address] Jul, [facility] [address] [id number] [place] [address] Jul, [facility] [address] [id number] [place] [address] Jun, [facility] [address] [id number] [place] [address] May, [facility] [place] [facility] [address] [id number] [place] [address] May, [facility] [address] [id number] [place] [address] May, [facility] [place] [facility] [address] [id number] [place] [address] May, [facility] [place] [facility] [address] [id number] [place] [address] May, [facility] [place] [facility] [address] [id number] [place] [address] May, [facility] [address] [facility] [id number] [address] May, [facility] [address] [id number] [address] Apr, [facility] [address] [facility] [id number] [place] [address] Apr, [facility] [address] [id number] [address] Apr, [facility] [address] [facility] [id number] [address] Apr, IMMUNIZATIONS No Known Immunizations SOCIAL HISTORY Never Assessed REASON FOR VISIT PLAN OF CARE VITAL SIGNS MEDICATIONS Unknown [...]
--- OUTSIDE RECORDS SUMMARY | 2019-07-08 00:14 | XMS REPORT ---
Author Author JOSÉ LUIS RODRÍGUEZ Organization [facility] Address [address] [place] [address] Care Team Providers Care Mental Health Orderly Name Role Phone JOSÉ LUIS RODRÍGUEZ Unavailable PROBLEMS Type Condition ICD9-CM Code GGP60-JA Code Onset Dates Condition Status SNOMED Code Problem Hypertriglyceridemia E78.1 Active 223446140 Problem Family history of diabetes mellitus Z83.3 Active 028379434 Problem Hyperinsulinemia E16.1 Active 16542953 Problem Insomnia, unspecified type G47.00 Active 325596435 Problem Chronic pain G89.29 Active 61792748 Problem Dysthymia F34.1 Active 51103685 Problem History of MRSA infection Z86.14 Active 056863257 Problem Osteoarthritis M19.90 Active 638693909 Problem Chronic obstructive pulmonary disease, unspecified COPD type J44.9 Active 32802021 Problem Essential hypertension I10 Active 53989478 Problem Primary insomnia F51.01 Active 6150508 ALLERGIES No Information ENCOUNTERS Encounter Location Date Diagnosis [facility] [id number] [place] [address] May, [facility] [address], [place] [address] Apr, [facility] [id number] [place] [address] Apr, Chronic pain G89.29 [facility] [id number] [place] [address] March, Chronic pain G89.29 [facility] [id number] [place] [address] March, [facility] [id number] [place] [address] March, [facility] [id number] [place] [address] March, Bronchitis J40 and Shortness of breath R06.02 [place] [id number] [place] [address] Feb, Chronic pain G89.29 [facility] [facility] [address] [address] Feb, Primary insomnia F51.01 [place] [facility] [address] [address] Feb, Chest pain, unspecified type R07.9 [place] [address] [address] Feb, Insomnia, unspecified type G47.00 [place] [address] [address] Feb, [place] [address] [address] Feb, Hypertriglyceridemia E78.1 ; Chronic narcotic use F11.90 ; Essential hypertension I10 ; Encounter for immunization Z23 ; Chronic obstructive pulmonary disease, unspecified COPD type J44.9 ; Hyperinsulinemia E16.1 ; Epistaxis R04.0 ; Insomnia, unspecified type G47.00 and Chest pain, unspecified type R07.9 [place] [id number] [place] [address] Jan, Chronic pain G89.29 and Insomnia, unspecified type G47.00 [facility] [id number] [place] [address] Dec, Chronic pain G89.29 and Insomnia, unspecified type G47.00 [facility] [id number] [place] [address] Dec, Chronic pain G89.29 and Insomnia, unspecified type G47.00 [facility] [address] [address] Nov, Chronic pain G89.29 and Insomnia, unspecified type G47.00 [facility] [facility] [id number] [place] [address] Oct, Chronic pain G89.29 and Insomnia, unspecified type G47.00 [facility] [id number] [place] [address] Oct, [place] [address] [address] Oct, Pneumonia of left lower lobe due to infectious organism J18.1 and Chronic obstructive pulmonary disease, unspecified COPD type J44.9 [facility] [id number] [place] [address] Oct, Hypertriglyceridemia E78.1 [facility] [facility] [id number] [place] [address] Sep, Hypertriglyceridemia E78.1 [facility] [facility] [id number] [place] [address] Sep, Chronic pain G89.29 and Insomnia, unspecified type G47.00 [facility] [id number] [place] [address] 2018 Seborrheic keratoses L82.1 and Sebaceous cyst L72.3 [facility] [id number] [place] [address] 16 Aug, 2018 Chronic pain G89.29 and Insomnia, unspecified type G47.00 [facility] [id number] [place] [address] 18 Jul, 2018 Seborrheic keratoses L82.1 [facility] [id number] [place] [address] 14 Jul, 2018 Chronic pain G89.29 and Insomnia, unspecified type G47.00 [facility] [id number] [place] [address] Jun, Chronic pain G89.29 and Insomnia, unspecified type G47.00 [place] [id number] [place] [address] Jun, Seborrheic keratoses L82.1 [place] [id number] [place] [address] May, Dysthymia F34.1 ; Chronic obstructive pulmonary disease, unspecified COPD type J44.9 ; Chronic pain G89.29 ; Insomnia, unspecified type G47.00 ; BMI 40.0-44.9, adult Z68.41 and Other seborrheic keratosis L82.1 [place] [address] [place] [address] May, Chronic pain G89.29 and Insomnia, unspecified type G47.00 [place] [address] [address] Apr, Hypertriglyceridemia E78.1 [facility] [address] [address] Apr, Chronic pain G89.29 and Insomnia, unspecified type G47.00 [place] [id number] [place] [address] Apr, Hyperinsulinemia E16.1 ; Hypertriglyceridemia E78.1 and Fatigue, unspecified type R53.83 [facility] [id number] [place] [address] Apr, Hyperinsulinemia E16.1 ; Chronic pain G89.29 ; Primary insomnia F51.01 ; Chronic obstructive pulmonary disease, unspecified COPD type J44.9 ; Dysthymia F34.1 ; Hypertriglyceridemia E78.1 ; Fatigue, unspecified type R53.83 and Rash R21 [place] [id number] [place] [address] March, Chronic pain G89.29 and Insomnia, unspecified type G47.00 [facility] [address], [place] [address] March, Insomnia, unspecified type G47.00 [facility] [id number] [place] [address] Feb, Chronic pain G89.29 [facility] [id number] [place] [address] Feb, Chronic pain G89.29 [facility] [id number] [place] [address] Jan, Chronic pain G89.29 [facility] [id number] [place] [address] Dec, Chronic pain G89.29 [facility] [id number] [place] [address] Nov, Chronic pain G89.29 and Insomnia, unspecified type G47.00 [facility] [id number] [place] [address] Oct, Insomnia, unspecified type G47.00 ; Chronic pain G89.29 and Colon cancer screening Z12.11 [facility] [id number] [place] [address] Oct, Chronic pain G89.29 [facility] [id number] [place] [address] Sep, Chronic pain G89.29 and Insomnia, unspecified type G47.00 [facility] [id number] [place] [address] Sep, Chronic pain G89.29 [facility] [id number] [place] [address] Sep, [facility] [address] [address] Aug, Medicare welcome exam Z00.00 ; Encounter for immunization Z23 ; Colon cancer screening Z12.11 and Encounter for screening for lung cancer Z12.2 [facility] [id number] [place] [address] Aug, [place] [address] [address] Aug, Chronic pain G89.29 and Insomnia, unspecified type G47.00 [place] [address] [address] Aug, Hypertriglyceridemia E78.1 [place] [id number] [place] [address] Jul, Chronic pain G89.29 and Insomnia, unspecified type G47.00 [place] [id number] [place] [address] Jun, Hypertriglyceridemia E78.1 [place] [id number] [place] [address] Jun, Chronic pain G89.29 and Insomnia, unspecified type G47.00 [place] [id number] [place] [address] Jun, [place] [id number] [place] [address] Jun, [place] [id number] [place] [address] May, Hyperinsulinemia E16.1 ; Chronic pain G89.29 ; Insomnia, unspecified type G47.00 and Rash R21 [place] [id number] [place] [address] May, Chronic pain G89.29 [place] [id number] [place] [address] May, Hypertriglyceridemia E78.1 [place] [id number] [place] [address] Apr, Chronic pain G89.29 [facility] [id number] [place] [address] Apr, Chronic pain G89.29 ; Hyperinsulinemia E16.1 ; Hypertriglyceridemia E78.1 and Primary insomnia F51.01 [facility] [id number] [place] [address] March, Chronic pain G89.29 [facility] [address] [address] March, Chronic pain G89.29 [facility] [id number] [place] [address] Feb, [facility] [id number] [place] [address] Feb, Chronic pain G89.29 [facility] [id number] [place] [address] Jan, Chronic pain G89.29 [facility] [id number] [place] [address] Dec, Chronic pain G89.29 [facility] [id number] [place] [address] Dec, [facility] [id number] [place] [address] Nov, Hypertriglyceridemia E78.1 [facility] [id number] [place] [address] Nov, [facility] [id number] [place] [address] Nov, Chronic pain G89.29 ; Hypertriglyceridemia E78.1 and Chronic obstructive pulmonary disease, unspecified COPD type J44.9 [facility] [id number] [place] [address] Nov, Chronic pain G89.29 [facility] [id number] [place] [address] Oct, Chronic pain G89.29 [place] [id number] [place] [address] Oct, [place] [address] [address] Sep, Chronic obstructive pulmonary disease, unspecified COPD type J44.9 and Abscess L02.91 [place] [address] [address] 16 Sep, 2016 Chronic pain G89.29 [place] [address] [address] Aug, Chronic pain G89.29 [place] [address] [address] Aug, Chronic pain G89.29 [place] [address] [address] Aug, Cutaneous horn L85.8 and Skin tag L91.8 [place] [id number] [place] [address] Jul, [place] [address] [address] Jul, Hypertriglyceridemia E78.1 [place] [address] [address] 07 Jul, 2016 Other chronic pain G89.29 ; Essential hypertension I10 ; Hyperinsulinemia E16.1 ; Hyperlipidemia, unspecified hyperlipidemia type E78.5 and Cutaneous horn L85.8 [place] [id number] [place] [address] Jun, Chronic pain G89.29 [place] [address] [address] May, Chronic pain G89.29 [place] [address] [address] May, [facility] [address], [place] [address] May, Skin infection L08.9 [facility] [address] [place] [address] Apr, Chronic pain G89.29 [facility] [id number] [place] [address] Apr, [facility] [id number] [place] [address] Apr, Chronic pain G89.29 [facility] [id number] [place] [address] March, [facility] [id number] [place] [address] Feb, Chronic pain G89.29 ; Hyperinsulinemia E16.1 and Hypertriglyceridemia E78.1 [facility] [id number] [place] [address] Feb, [facility] [id number] [place] [address] Jan, [facility] [id number] [place] [address] Dec, [facility] [id number] [place] [address] Nov, [facility] [id number] [place] [address] Oct, [facility] [address] [place] [address] Oct, Hyperinsulinemia E16.1 [facility] [id number] [place] [address] Oct, Other chronic pain G89.29 ; Chronic obstructive pulmonary disease, unspecified COPD type J44.9 ; Insomnia, unspecified type G47.00 ; Hyperinsulinemia E16.1 and Essential hypertension I10 [facility] [id number] [place] [address] Sep, [facility] [id number] [place] [address] Aug, [facility] [id number] [place] [address] 30 Jul, 2015 [facility] [address] [address] Jul, [facility] [address] [address] Jul, Overweight 278.02 and Hyperinsulinemia 251.1 [facility] [address] [address] Jul, [facility] [address] [address] Jun, Skin tags, multiple acquired 701.9 [facility] [id number] [place] [address] Jun, Other chronic pain 338.29 ; Erectile dysfunction 607.84 ; Hyperinsulinemia 251.1 and Hypertension 401.9 [facility] [id number] [place] [address] Jun, [facility] [id number] [place] [address] Jun, [facility] [id number] [place] [address] Jun, [facility] [id number] [place] [address] May, Pure hyperglyceridemia 272.1 [facility] [id number] [place] [address] May, Pure hyperglyceridemia 272.1 [facility] [id number] [place] [address] May, [facility] [address], [place] [address] May, Overgrown toenails 703.8 ; Seborrheic keratosis 702.19 ; Skin tag 701.9 ; Warts, genital 078.11 ; Cramps, extremity 729.82 ; Increased appetite 783.6 and Heat rash 705.1 [facility] [id number] [place] [address] May, [facility] [id number] [address] Apr, [facility] [id number] [place] [address] Apr, [facility] [id number] [place] [address] March, [facility] [id number] [place] [address] Feb, [facility] [address] [address] Feb, [facility] [id number] [address] Jan, [facility] [address] [address] Jan, [facility] [address], [place] [address] Jan, [facility] [address] [address] Jan, [facility] [id number] [address] Jan, [facility] [address], [place] [address] Jan, [facility] [id number] [place] [address], [place] [address] 16 Jan, 2014 [facility] [place] [facility] [address] [id number] [place] [address] 16 Jan, 2014 [facility] [place] [facility] [address] [id number] [place] [address] 10 Jan, 2014 [facility] [place] [facility] [address] [id number] [place] [address] 10 Jan, 2014 [facility] [place] [facility] [address] [id number] [place] [address] 05 Jan, 2015 [facility] [place] [facility] [address] [id number] [place] [address] 05 Jan, 2015 [facility] [place] [facility] [address] [id number] [place] [address] Dec, 2014 [facility] [place] [facility] [address] [id number] [place] [address] Dec, 2014 [facility] [place] [facility] [address] [id number] [place] [address] Dec, [facility] [place] [facility] [address] [id number] [place] [address] Dec, [facility] [place] [facility] [address] [facility] [id number] [place] [address] Dec, [facility] [place] [facility] [address] [id number] [place] [address] Dec, 2014 [facility] [place] [facility] [address] [id number] [place] [address] Dec, [facility] [place] [facility] [address] [id number] [place] [address] Dec, [facility] [place] [facility] [address] [facility] [id number] [place] [address] Nov, [facility] [place] [facility] [address] [id number] [place] [address] Nov, [facility] [place] [facility] [address] [id number] [place] [address] Nov, [facility] [place] [facility] [address] [id number] [place] [address] Nov, [facility] [place] [facility] [address] [id number] [place] [address] Nov, [facility] [place] [facility] [address] [id number] [place] [address] Nov, [facility] [place] [facility] [address] [id number] [place] [address] Nov, [facility] [place] [facility] [address] [id number] [place] [address] Nov, [facility] [place] [facility] [address] [id number] [place] [address] Oct, [facility] [place] [facility] [address] [id number], [place] [address] Oct, [facility] [place] [facility] [address] [id number] [place] [address] Sep, [facility] [place] [facility] [address] [id number], [place] [address] Sep, [facility] [place] [facility] [address] [id number], [place] [address] Sep, [facility] [place] [facility] [address] [id number], [place] [address] Sep, [facility] [place] [facility] [address] [id number] [place] [address] Aug, [facility] [place] [facility] [address] [id number] [place] [address] Aug, [facility] [place] [facility] [address] [id number] [place] [address] Aug, [facility] [place] [facility] [address] [id number] [place] [address] Aug, [facility] [place] [facility] [address] [id number] [place] [address] Aug, [facility] [place] [facility] [address] [id number] [place] [address] Aug, [facility] [place] [facility] [address] [id number] [place] [address] Aug, [facility] [place] [facility] [address] [id number] [place] [address] Aug, [facility] [place] [facility] [address] [id number] [place] [address] Jul, [facility] [place] [facility] [address] [id number] [place] [address] Jul, [facility] [place] [facility] [address] [id number] [place] [address] Jul, [facility] [place] [facility] [address] [id number] [place] [address] Jul, [facility] [place] [facility] [address] [id number] [place] [address] Jul, [facility] [place] [facility] [address] [id number] [place] [address] Jun, [facility] [place] [facility] [address] [id number] [place] [address] Jun, [facility] [place] [facility] [address] [id number] [place] [address] Jun, [facility] [place] [facility] [address] [id number] [place] [address] Jun, [facility] [place] [facility] [address] [id number] [place] [address] Jun, [facility] [place] [facility] [address] [id number] [place] [address] Jun, [facility] [place] [facility] [address] [id number] [place] [address] May, [facility] [place] [facility] [address] [id number] [place] [address] May, [facility] [place] [facility] [address] [id number] [place] [address] May, [facility] [place] [facility] [address] [id number] [place] [address] May, [facility] [place] [facility] [address] [id number] [place] [address] Apr, [facility] [place] [facility] [address] [id number] [place] [address] Apr, [facility] [place] [facility] [address] [id number] [place] [address] Apr, [facility] [place] [facility] [address] [id number] [place] [address] Apr, [facility] [place] [facility] [address] [id number] [place] [address] Apr, [facility] [place] [facility] [address] [id number] [place] [address] Apr, [facility] [place] [facility] [address] [id number] [place] [address] March, [facility] [place] [facility] [address] [id number] [place] [address] March, [facility] [place] [facility] [address] [id number] [place] [address] March, [facility] [place] [facility] [address] [id number] [place] [address] March, [facility] [place] [facility] [address] [id number] [place] [address] Feb, [facility] [place] [facility] [address] [id number] [place] [address] Feb, [facility] [place] [facility] [address] [id number] [place] [address] Feb, [facility] [place] [facility] [address] [id number] [place] [address] Feb, [facility] [place] [facility] [address] [id number] [place] [address] Feb, [facility] [place] [facility] [address] [id number] [place] [address] Feb, [facility] [place] [facility] [address] [id number] [place] [address] Feb, [facility] [place] [facility] [address] [id number] [place] [address] Feb, [facility] [place] [facility] [address] [id number] [place] [address] Feb, [facility] [place] [facility] [address] [id number] [place] [address] Feb, [facility] [facility] [address] [id number] [place] [address] Feb, [facility] [place] [facility] [address] [id number] [place] [address] Feb, [facility] [place] [facility] [address] [id number] [place] [address] Feb, [facility] [place] [facility] [address] [id number] [place] [address] Feb, [facility] [place] [facility] [address] [id number] [place] [address] Feb, [facility] [place] [facility] [address] [id number] [place] [address] Feb, [facility] [place] [facility] [address] [id number] [place] [address] Jan, [facility] [place] [facility] [address] [id number] [place] [address] Jan, [facility] [place] [facility] [address] [id number] [place] [address] Dec, [facility] [place] [facility] [address] [id number] [place] [address] Dec, [facility] [place] [facility] [address] [id number] [place] [address] Dec, [facility] [place] [facility] [address] [id number] [place] [address] Dec, [facility] [place] [facility] [address] [id number] [place] [address] Dec, [facility] [place] [facility] [address] [id number] [place] [address] Dec, [facility] [place] [facility] [address] [id number] [place] [address] Dec, [facility] [place] [facility] [address] [id number] [place] [address] Nov, [facility] [place] [facility] [address] [facility] [id number] [place] [address] Nov, [facility] [place] [facility] [address] [facility] [id number] [place] [address] Nov, [facility] [place] [facility] [address] [id number] [place] [address] Nov, [facility] [place] [facility] [address] [id number] [place] [address] Oct, [facility] [place] [facility] [address] [id number] [place] [address] Oct, [facility] [place] [facility] [address] [facility] [id number] [place] [address] Sep, [facility] [place] [facility] [address] [id number] [place] [address] Sep, [facility] [place] [facility] [address] [id number] [place] [address] Aug, [facility] [place] [facility] [address] [id number] [place] [address] Aug, [facility] [place] [facility] [address] [id number] [place] [address] Aug, [facility] [place] [facility] [address] [id number] [place] [address] Aug, [facility] [place] [facility] [address] [id number] [place] [address] Aug, [facility] [place] [facility] [address] [id number] [place] [address] Aug, [facility] [place] [facility] [address] [id number] [place] [address] Aug, [facility] [place] [facility] [address] [id number], [place] [address] Aug, [facility] [facility] [address] [id number], [place] [address] Aug, [facility] [address] [id number], [place] [address] Aug, [facility] [address] [id number], [place] [address] Jun, [facility] [address] [id number], [place] [address] Jun, [facility] [address] [id number], [place] [address] May, [facility] [address] [id number], [place] [address] Apr, [facility] [address] [id number], [place] [address] Apr, [facility] [place] [address] [id number] [place] [address] March, [facility] [address] [id number] [place] [address] Feb, [facility] [place] [address] [id number] [place] [address] Jan, [facility] [address] [id number] [place] [address] Jan, [facility] [address] [id number] [place] [address] Dec, [facility] [address] [id number] [place] [address] Dec, [facility] [address] [id number] [place] [address] Nov, [facility] [address] [id number] [place] [address] Jul, [facility] [address] [id number] [place] [address] Jul, [facility] [address] [id number] [place] [address] Jun, [facility] [address] [id number] [place] [address] May, [facility] [address] [id number] [place] [address] May, [facility] [address] [id number] [place] [address] May, [facility] [facility] [address] [id number] [place] [address] May, [facility] [address] [id number] [place] [address] May, [facility] [address] [id number] [place] [address] May, [facility] [address] [facility] [id number], [place] [address] May, [facility] [address] [id number], [place] [address] Apr, [facility] [address] [facility] [id number], [place] [address] Apr, [facility] [address] [id number], [place] [address] Apr, [facility] [address] [facility] [id number], [place] [address] Apr, IMMUNIZATIONS No Known Immunizations SOCIAL HISTORY [...]
--- OUTSIDE RECORDS SUMMARY | 2019-07-08 00:15 | XMS REPORT ---
Author Author JOSÉ LUIS RODRÍGUEZ Organization [facility] Address [address] [place] [address] Care Team Providers Care Groundskeeper Name Role Phone JOSÉ LUIS RODRÍGUEZ Unavailable PROBLEMS Type Condition ICD9-CM Code PJH85-CF Code Onset Dates Condition Status SNOMED Code Problem Hypertriglyceridemia E78.1 Active 760692568 Problem Family history of diabetes mellitus Z83.3 Active 055764643 Problem Hyperinsulinemia E16.1 Active 40696867 Problem Insomnia, unspecified type G47.00 Active 976265367 Problem Chronic pain G89.29 Active 71155520 Problem Dysthymia F34.1 Active 62895305 Problem History of MRSA infection Z86.14 Active 360232810 Problem Osteoarthritis M19.90 Active 616035667 Problem Chronic obstructive pulmonary disease, unspecified COPD type J44.9 Active 59588919 Problem Essential hypertension I10 Active 37986916 Problem Primary insomnia F51.01 Active [id number] ALLERGIES No Information ENCOUNTERS Encounter Location Date Diagnosis [facility] [id number] [place] [address] Apr, [facility] [id number] [place] [address] Apr, Chronic pain G89.29 [facility] [id number] [place] [address] March, Chronic pain G89.29 [facility] [id number] [place] [address] March, [facility] [id number] [place] [address] March, [facility] [id number] [place] [address] March, Bronchitis J40 and Shortness of breath R06.02 [place] [id number] [place] [address] Feb, Chronic pain G89.29 [facility] [id number] [place] [address] Feb, Primary insomnia F51.01 [facility] [address] [address] Feb, Chest pain, unspecified type R07.9 [facility] [place] [address] [address] Feb, Insomnia, unspecified type G47.00 [facility] [place] [address] [address] Feb, [facility] [address] [address] Feb, Hypertriglyceridemia E78.1 ; Chronic narcotic use F11.90 ; Essential hypertension I10 ; Encounter for immunization Z23 ; Chronic obstructive pulmonary disease, unspecified COPD type J44.9 ; Hyperinsulinemia E16.1 ; Epistaxis R04.0 ; Insomnia, unspecified type G47.00 and Chest pain, unspecified type R07.9 [facility] [id number] [place] [address] Jan, Chronic pain G89.29 and Insomnia, unspecified type G47.00 [facility] [id number] [place] [address] Dec, Chronic pain G89.29 and Insomnia, unspecified type G47.00 [facility] [place] [address] [address] Dec, Chronic pain G89.29 and Insomnia, unspecified type G47.00 [facility] [place] [id number] [place] [address] Nov, Chronic pain G89.29 and Insomnia, unspecified type G47.00 [facility] [id number] [place] [address] Oct, Chronic pain G89.29 and Insomnia, unspecified type G47.00 [facility] [id number] [place] [address] Oct, [facility] [id number] [place] [address] Oct, Pneumonia of left lower lobe due to infectious organism J18.1 and Chronic obstructive pulmonary disease, unspecified COPD type J44.9 [facility] [id number] [place] [address] Oct, Hypertriglyceridemia E78.1 [facility] [id number] [place] [address] Sep, Hypertriglyceridemia E78.1 [facility] [address] [address] Sep, Chronic pain G89.29 and Insomnia, unspecified type G47.00 [facility] [id number] [place] [address] 2018 Seborrheic keratoses L82.1 and Sebaceous cyst L72.3 [facility] [id number] [place] [address] 16 Aug, 2018 Chronic pain G89.29 and Insomnia, unspecified type G47.00 [facility] [id number] [place] [address] 18 Jul, 2018 Seborrheic keratoses L82.1 [facility] [id number] [place] [address] 14 Jul, 2018 Chronic pain G89.29 and Insomnia, unspecified type G47.00 [facility] [place] [id number] [place] [address] Jun, Chronic pain G89.29 and Insomnia, unspecified type G47.00 [facility] [place] [id number] [place] [address] Jun, Seborrheic keratoses L82.1 [facility] [address] [address] May, Dysthymia F34.1 ; Chronic obstructive pulmonary disease, unspecified COPD type J44.9 ; Chronic pain G89.29 ; Insomnia, unspecified type G47.00 ; BMI 40.0-44.9, adult Z68.41 and Other seborrheic keratosis L82.1 [facility] [place] [address] [address] May, Chronic pain G89.29 and Insomnia, unspecified type G47.00 [facility] [place] [address] [address] Apr, Hypertriglyceridemia E78.1 [facility] [place] [address] [address] Apr, Chronic pain G89.29 and Insomnia, unspecified type G47.00 [facility] [place] [address] [address] Apr, Hyperinsulinemia E16.1 ; Hypertriglyceridemia E78.1 and Fatigue, unspecified type R53.83 [facility] [id number] [place] [address] Apr, Hyperinsulinemia E16.1 ; Chronic pain G89.29 ; Primary insomnia F51.01 ; Chronic obstructive pulmonary disease, unspecified COPD type J44.9 ; Dysthymia F34.1 ; Hypertriglyceridemia E78.1 ; Fatigue, unspecified type R53.83 and Rash R21 [facility] [place] [address] [address] March, Chronic pain G89.29 and Insomnia, unspecified type G47.00 [facility] [place] [id number] [place] [address] March, Insomnia, unspecified type G47.00 [facility] [address] [address] Feb, Chronic pain G89.29 [facility] [address] [place] [address] Feb, Chronic pain G89.29 [facility] [id number] [place] [address] Jan, Chronic pain G89.29 [facility] [id number] [place] [address] Dec, Chronic pain G89.29 [facility] [id number] [place] [address] Nov, Chronic pain G89.29 and Insomnia, unspecified type G47.00 [facility] [place] [address] [place] [address] Oct, Insomnia, unspecified type G47.00 ; Chronic pain G89.29 and Colon cancer screening Z12.11 [facility] [place] [id number] [place] [address] Oct, Chronic pain G89.29 [facility] [id number] [place] [address] Sep, Chronic pain G89.29 and Insomnia, unspecified type G47.00 [facility] [place] [address] [address] Sep, Chronic pain G89.29 [facility] [address] [address] Sep, [facility] [place] [id number] [place] [address] Aug, Medicare welcome exam Z00.00 ; Encounter for immunization Z23 ; Colon cancer screening Z12.11 and Encounter for screening for lung cancer Z12.2 [facility] [id number] [place] [address] Aug, [facility] [id number] [place] [address] Aug, Chronic pain G89.29 and Insomnia, unspecified type G47.00 [facility] [id number] [place] [address] Aug, Hypertriglyceridemia E78.1 [facility] [address] [address] Jul, Chronic pain G89.29 and Insomnia, unspecified type G47.00 [facility] [place] [address] [address] Jun, Hypertriglyceridemia E78.1 [facility] [place] [id number] [place] [address] Jun, Chronic pain G89.29 and Insomnia, unspecified type G47.00 [facility] [id number] [place] [address] Jun, [facility] [place] [address] [address] Jun, [facility] [place] [id number] [place] [address] May, Hyperinsulinemia E16.1 ; Chronic pain G89.29 ; Insomnia, unspecified type G47.00 and Rash R21 [facility] [id number] [place] [address] May, Chronic pain G89.29 [facility] [id number] [place] [address] May, Hypertriglyceridemia E78.1 [facility] [id number] [place] [address] Apr, Chronic pain G89.29 [facility] [id number] [place] [address] Apr, Chronic pain G89.29 ; Hyperinsulinemia E16.1 ; Hypertriglyceridemia E78.1 and Primary insomnia F51.01 [facility] [address] [address] March, Chronic pain G89.29 [facility] [id number] [place] [address] March, Chronic pain G89.29 [facility] [address] [address] Feb, [facility] [address] [address] Feb, Chronic pain G89.29 [facility] [address] [address] Jan, Chronic pain G89.29 [facility] [address] [address] Dec, Chronic pain G89.29 [facility] [address] [address] Dec, [facility] [address] [address] Nov, Hypertriglyceridemia E78.1 [facility] [address] [address] Nov, [facility] [address] [address] Nov, Chronic pain G89.29 ; Hypertriglyceridemia E78.1 and Chronic obstructive pulmonary disease, unspecified COPD type J44.9 [facility] [address] [address] Nov, Chronic pain G89.29 [facility] [id number] [place] [address] Oct, Chronic pain G89.29 [facility] [address] [place] [address] Oct, [facility] [address] [address] Sep, Chronic obstructive pulmonary disease, unspecified COPD type J44.9 and Abscess L02.91 [facility] [address] [address] Sep, Chronic pain G89.29 [facility] [address] [address] Aug, Chronic pain G89.29 [facility] [address] [address] Aug, Chronic pain G89.29 [facility] [address] [address] Aug, Cutaneous horn L85.8 and Skin tag L91.8 [facility] [address] [address] Jul, [place] [address] [address] 09 Jul, 2016 Hypertriglyceridemia E78.1 [facility] [id number] [place] [address] 07 Jul, 2016 Other chronic pain G89.29 ; Essential hypertension I10 ; Hyperinsulinemia E16.1 ; Hyperlipidemia, unspecified hyperlipidemia type E78.5 and Cutaneous horn L85.8 [facility] [id number] [place] [address] Jun, Chronic pain G89.29 [facility] [address] [address] May, Chronic pain G89.29 [facility] [id number] [place] [address] May, [facility] [address] [address] May, Skin infection L08.9 [facility] [address] [place] [address] Apr, Chronic pain G89.29 [facility] [id number] [place] [address] Apr, [facility] [id number] [place] [address] Apr, Chronic pain G89.29 [facility] [id number] [place] [address] March, [facility] [id number] [place] [address] Feb, Chronic pain G89.29 ; Hyperinsulinemia E16.1 and Hypertriglyceridemia E78.1 [facility] [id number] [place] [address] Feb, [facility] [id number] [place] [address] Jan, [facility] [id number] [place] [address] Dec, [facility] [id number] [place] [address] Nov, [facility] [id number] [place] [address] Oct, [facility] [id number] [place] [address] Oct, Hyperinsulinemia E16.1 [facility] [id number] [place] [address] Oct, Other chronic pain G89.29 ; Chronic obstructive pulmonary disease, unspecified COPD type J44.9 ; Insomnia, unspecified type G47.00 ; Hyperinsulinemia E16.1 and Essential hypertension I10 [facility] [id number] [place] [address] Sep, [facility] [id number] [place] [address] Aug, [facility] [id number] [place] [address] 30 Jul, 2015 [facility] [id number] [place] [address] Jul, [facility] [address] [address] Jul, Overweight 278.02 and Hyperinsulinemia 251.1 [facility] [address] [address] Jul, [facility] [address] [address] Jun, Skin tags, multiple acquired 701.9 [facility] [address] [address] Jun, Other chronic pain 338.29 ; Erectile dysfunction 607.84 ; Hyperinsulinemia 251.1 and Hypertension 401.9 [facility] [id number] [place] [address] Jun, [facility] [id number] [place] [address] Jun, [facility] [id number] [place] [address] Jun, [facility] [id number] [place] [address] May, Pure hyperglyceridemia 272.1 [facility] [id number] [place] [address] May, Pure hyperglyceridemia 272.1 [facility] [id number] [place] [address] May, [facility] [id number] [place] [address] May, Overgrown toenails 703.8 ; Seborrheic keratosis 702.19 ; Skin tag 701.9 ; Warts, genital 078.11 ; Cramps, extremity 729.82 ; Increased appetite 783.6 and Heat rash 705.1 [facility] [address] [place] [address] May, [facility] [id number] [place] [address] Apr, [facility] [id number] [place] [address] Apr, [facility] [id number] [place] [address] March, [facility] [id number] [place] [address] Feb, [facility] [id number] [place] [address] Feb, [facility] [address], [place] [address] Jan, [facility] [id number] [address] Jan, [facility] [address] [place] [address] Jan, [facility] [address] [place] [address] 27 Jan, 2015 [facility] [address] [place] [address] Jan, [facility] [id number] [place] [address] 19 Jan, 2015 [facility] [address], [place] [address] 16 Jan, 2015 [facility] [id number] [place] [address], [place] [address] 16 Jan, 2015 [facility] [place] [facility] [address] [id number] [place] [address] 10 Jan, 2015 [facility] [place] [facility] [address] [id number] [place] [address] 10 Jan, 2014 [facility] [place] [facility] [address] [id number] [place] [address] 05 Jan, 2015 [facility] [place] [facility] [address] [id number] [place] [address] 05 Jan, 2015 [facility] [place] [facility] [address] [id number] [place] [address] Dec, 2014 [facility] [place] [facility] [address] [id number] [place] [address] Dec, 2014 [facility] [place] [facility] [address] [id number] [place] [address] Dec, 2014 [facility] [place] [facility] [address] [id number] [place] [address] Dec, [facility] [place] [facility] [address] [id number] [place] [address] Dec, [facility] [place] [facility] [address] [id number] [place] [address] Dec, [facility] [place] [facility] [address] [id number] [place] [address] Dec, [facility] [place] [facility] [address] [id number] [place] [address] Dec, [facility] [place] [facility] [address] [id number] [place] [address] Nov, [facility] [place] [facility] [address] [id number] [place] [address] Nov, [facility] [place] [facility] [address] [id number] [place] [address] Nov, [facility] [place] [facility] [address] [id number] [place] [address] 14 Nov, 2014 [facility] [place] [facility] [address] [id number] [place] [address] Nov, [facility] [place] [facility] [address] [id number] [place] [address] Nov, [facility] [place] [facility] [address] [id number] [place] [address] Nov, [facility] [place] [facility] [address] [id number] [place] [address] Nov, [facility] [place] [facility] [address] [id number] [place] [address] Oct, [facility] [place] [facility] [address] [id number] [place] [address] Oct, [facility] [place] [facility] [address] [id number], [place] [address] Sep, [facility] [place] [facility] [address] [id number] [place] [address] Sep, [facility] [place] [facility] [address] [id number], [place] [address] Sep, [facility] [place] [facility] [address] [id number], [place] [address] Sep, [facility] [place] [facility] [address] [id number], [place] [address] Aug, [facility] [place] [facility] [address] [id number] [place] [address] Aug, [facility] [place] [facility] [address] [id number], [place] [address] Aug, [facility] [place] [facility] [address] [id number], [place] [address] Aug, [facility] [place] [facility] [address] [id number] [place] [address] Aug, [facility] [place] [facility] [address] [id number] [place] [address] Aug, [facility] [place] [facility] [address] [id number] [place] [address] Aug, [facility] [place] [facility] [address] [id number] [place] [address] Aug, [facility] [place] [facility] [address] [id number] [place] [address] Jul, [facility] [place] [facility] [address] [id number] [place] [address] Jul, [facility] [place] [facility] [address] [id number] [place] [address] Jul, [facility] [place] [facility] [address] [id number] [place] [address] Jul, [facility] [place] [facility] [address] [id number] [place] [address] Jul, [facility] [place] [facility] [address] [id number] [place] [address] Jun, [facility] [place] [facility] [address] [id number] [place] [address] Jun, [facility] [place] [facility] [address] [id number] [place] [address] Jun, [facility] [place] [facility] [address] [id number] [place] [address] Jun, [facility] [place] [facility] [address] [id number] [place] [address] Jun, [facility] [place] [facility] [address] [id number] [place] [address] Jun, [facility] [place] [facility] [address] [id number] [place] [address] May, [facility] [place] [facility] [address] [id number] [place] [address] May, [facility] [place] [facility] [address] [id number] [place] [address] May, [facility] [place] [facility] [address] [id number] [place] [address] May, [facility] [place] [facility] [address] [id number] [place] [address] Apr, [facility] [place] [facility] [address] [id number] [place] [address] Apr, [facility] [place] [facility] [address] [id number] [place] [address] Apr, [facility] [place] [facility] [address] [id number] [place] [address] Apr, [facility] [place] [facility] [address] [id number] [place] [address] Apr, [facility] [place] [facility] [address] [id number] [place] [address] Apr, [facility] [place] [facility] [address] [id number] [place] [address] March, [facility] [place] [facility] [address] [id number] [place] [address] March, [facility] [place] [facility] [address] [id number] [place] [address] March, [facility] [place] [facility] [address] [id number] [place] [address] March, [facility] [place] [facility] [address] [id number] [place] [address] Feb, [facility] [place] [facility] [address] [id number] [place] [address] Feb, [facility] [place] [facility] [address] [id number] [place] [address] Feb, [facility] [place] [facility] [address] [id number] [place] [address] Feb, [facility] [place] [facility] [address] [id number] [place] [address] Feb, [facility] [place] [facility] [address] [id number] [place] [address] Feb, [facility] [place] [facility] [address] [id number] [place] [address] Feb, [facility] [place] [facility] [address] [id number] [place] [address] Feb, [facility] [place] [facility] [address] [id number] [place] [address] Feb, [facility] [place] [facility] [address] [id number] [place] [address] Feb, [facility] [place] [facility] [address] [id number] [place] [address] Feb, [facility] [place] [facility] [address] [id number] [place] [address] Feb, [facility] [place] [facility] [address] [id number] [place] [address] Feb, [facility] [place] [facility] [address] [id number] [place] [address] Feb, [facility] [place] [facility] [address] [id number] [place] [address] Feb, [facility] [place] [facility] [address] [id number] [place] [address] Feb, [facility] [place] [facility] [address] [id number] [place] [address] Jan, [facility] [place] [facility] [address] [id number] [place] [address] Jan, [facility] [place] [facility] [address] [id number] [place] [address] Dec, [facility] [place] [facility] [address] [id number] [place] [address] Dec, [facility] [place] [facility] [address] [id number] [place] [address] Dec, [facility] [place] [facility] [address] [id number] [place] [address] Dec, [facility] [place] [facility] [address] [id number] [place] [address] Dec, [facility] [place] [facility] [address] [id number] [place] [address] Dec, [facility] [place] [facility] [address] [id number] [place] [address] Dec, [facility] [place] [facility] [address] [id number] [place] [address] Nov, [facility] [place] [facility] [address] [id number] [place] [address] Nov, [facility] [place] [facility] [address] [id number] [place] [address] Nov, [facility] [place] [facility] [address] [id number] [place] [address] Nov, [facility] [place] [facility] [address] [id number] [place] [address] Oct, [facility] [place] [facility] [address] [id number] [place] [address] Oct, [facility] [place] [facility] [address] [id number] [place] [address] Sep, [facility] [place] [facility] [address] [id number] [place] [address] Sep, [facility] [place] [facility] [address] [id number] [place] [address] Aug, [facility] [place] [facility] [address] [id number] [place] [address] Aug, [facility] [place] [facility] [address] [id number] [place] [address] Aug, [facility] [place] [facility] [address] [id number] [place] [address] Aug, [facility] [place] [facility] [address] [id number] [place] [address] Aug, [facility] [place] [facility] [address] [id number] [place] [address] Aug, [facility] [place] [facility] [address] [id number] [place] [address] Aug, [facility] [place] [facility] [address] [id number] [place] [address] Aug, [facility] [place] [facility] [address] [id number], [place] [address] Aug, [facility] [place] [facility] [address] [id number], [place] [address] Aug, [facility] [place] [facility] [address] [id number], [place] [address] Jun, [facility] [place] [facility] [address] [id number], [place] [address] Jun, [facility] [place] [facility] [address] [id number], [place] [address] May, [facility] [place] [facility] [address] [id number], [place] [address] Apr, [facility] [place] [facility] [address] [id number], [place] [address] Apr, [facility] [place] [facility] [address] [id number], [place] [address] March, [facility] [place] [facility] [address] [id number] [place] [address] Feb, [facility] [address] [id number] [place] [address] Jan, [facility] [address] [id number] [place] [address] Jan, [facility] [address] [id number] [place] [address] Dec, [facility] [address] [id number] [place] [address] Dec, [facility] [address] [id number] [place] [address] Nov, [facility] [address] [id number] [place] [address] Jul, [facility] [address] [id number] [place] [address] Jul, [facility] [address] [id number] [place] [address] Jun, [facility] [address] [id number] [place] [address] May, [facility] [address] [id number] [place] [address] May, [facility] [place] [facility] [address] [id number] [place] [address] May, [facility] [address] [id number] [place] [address] May, [facility] [address] [id number] [place] [address] May, [facility] [place] [facility] [address] [id number] [place] [address] May, [facility] [address] [id number] [place] [address] May, [facility] [address] [facility] [id number] [place] [address] Apr, [facility] [address] [facility] [id number], [place] [address] Apr, [facility] [address] [facility] [id number], [place] [address] Apr, [facility] [address] [facility] [id number], [place] [address] Apr, IMMUNIZATIONS No Known Immunizations SOCIAL HISTORY Never Assessed REASON FOR VISIT PLAN OF CARE VITAL SIGNS Height 66 in 2015-02-06 Weight 236 lbs 2015-02-06 Temperature 97.9 degrees Fahrenheit 2015-02-06 Heart Rate 90 bpm 2015-02-06 Respiratory Rate 18 2015-02-06 Blood pressure systolic 142 mmHg 2015-02-06 Blood pressure diastolic 80 mmHg 2015-02-06 MEDICATIONS Unknown Medications RESULTS No Results PROCEDURES Procedure Date Ordered Result Body Site X-RAY EXAM OF WRIST February 06, 2015 INSTRUCTIONS MEDICATIONS ADMINISTERED No Known Medications MEDICAL (GENERAL) HISTORY Type Description Date Medical History hypogonadism Medical History hyperlipidemia Medical History pre-diabetic Medical History chronic pain Medical History COPD Medical History [place] Surgical History skin cancer 1999 Hospitalization History surgery Hospitalization History MRSA infection 05/2015 Hospitalization History pneumonia
--- OUTSIDE RECORDS SUMMARY | 2019-07-08 00:15 | XMS REPORT ---
Author Author JOSÉ LUIS RODRÍGUEZ Organization [facility] Address [address] [place] [address] Care Team Providers Care Ditch Rider Name Role Phone JOSÉ LUIS RODRÍGUEZ Unavailable PROBLEMS Type Condition ICD9-CM Code AUV15-TF Code Onset Dates Condition Status SNOMED Code Problem Hypertriglyceridemia E78.1 Active 048996181 Problem Family history of diabetes mellitus Z83.3 Active 606645244 Problem Hyperinsulinemia E16.1 Active 71390799 Problem Insomnia, unspecified type G47.00 Active 035487248 Problem Chronic pain G89.29 Active 75268718 Problem Dysthymia F34.1 Active 66673496 Problem History of MRSA infection Z86.14 Active 089249775 Problem Osteoarthritis M19.90 Active 528117442 Problem Chronic obstructive pulmonary disease, unspecified COPD type J44.9 Active 15594989 Problem Essential hypertension I10 Active 39069516 Problem Primary insomnia F51.01 Active 5443432 ALLERGIES No Information ENCOUNTERS Encounter Location Date Diagnosis [facility] [id number] [place] [address] Apr, [facility] [id number] [place] [address] Apr, Chronic pain G89.29 [facility] [id number] [place] [address] March, Chronic pain G89.29 [facility] [id number] [place] [address] March, [facility] [id number] [place] [address] March, [facility] [id number] [place] [address] March, Bronchitis J40 and Shortness of breath R06.02 [place] [id number] [place] [address] Feb, Chronic pain G89.29 [place] [id number] [place] [address] Feb, Primary insomnia F51.01 [place] [address] [address] Feb, Chest pain, unspecified type R07.9 [place] [address] [address] Feb, Insomnia, unspecified type G47.00 [place] [address] [address] Feb, [place] [address] [address] Feb, Hypertriglyceridemia E78.1 ; Chronic narcotic use F11.90 ; Essential hypertension I10 ; Encounter for immunization Z23 ; Chronic obstructive pulmonary disease, unspecified COPD type J44.9 ; Hyperinsulinemia E16.1 ; Epistaxis R04.0 ; Insomnia, unspecified type G47.00 and Chest pain, unspecified type R07.9 [place] [id number] [place] [address] Jan, Chronic pain G89.29 and Insomnia, unspecified type G47.00 [place] [id number] [place] [address] Dec, Chronic pain G89.29 and Insomnia, unspecified type G47.00 [place] [address] [address] Dec, Chronic pain G89.29 and Insomnia, unspecified type G47.00 [place] [id number] [place] [address] Nov, Chronic pain G89.29 and Insomnia, unspecified type G47.00 [place] [id number] [place] [address] Oct, Chronic pain G89.29 and Insomnia, unspecified type G47.00 [place] [id number] [place] [address] Oct, [place] [id number] [place] [address] Oct, Pneumonia of left lower lobe due to infectious organism J18.1 and Chronic obstructive pulmonary disease, unspecified COPD type J44.9 [place] [id number] [place] [address] Oct, Hypertriglyceridemia E78.1 [place] [id number] [place] [address] Sep, Hypertriglyceridemia E78.1 [place] [address] [address] Sep, Chronic pain G89.29 and Insomnia, unspecified type G47.00 [place] [id number] [place] [address] 2018 Seborrheic keratoses L82.1 and Sebaceous cyst L72.3 [place] [id number] [place] [address] 16 Aug, 2018 Chronic pain G89.29 and Insomnia, unspecified type G47.00 [place] [id number] [place] [address] 18 Jul, 2018 Seborrheic keratoses L82.1 [place] [id number] [place] [address] 14 Jul, 2018 Chronic pain G89.29 and Insomnia, unspecified type G47.00 [place] [id number] [place] [address] Jun, Chronic pain G89.29 and Insomnia, unspecified type G47.00 [place] [id number] [place] [address] Jun, Seborrheic keratoses L82.1 [place] [address] [address] May, Dysthymia F34.1 ; Chronic obstructive pulmonary disease, unspecified COPD type J44.9 ; Chronic pain G89.29 ; Insomnia, unspecified type G47.00 ; BMI 40.0-44.9, adult Z68.41 and Other seborrheic keratosis L82.1 [place] [address] [address] May, Chronic pain G89.29 and Insomnia, unspecified type G47.00 [place] [address] [address] Apr, Hypertriglyceridemia E78.1 [place] [address] [address] Apr, Chronic pain G89.29 and Insomnia, unspecified type G47.00 [place] [address] [address] Apr, Hyperinsulinemia E16.1 ; Hypertriglyceridemia E78.1 and Fatigue, unspecified type R53.83 [place] [id number] [place] [address] Apr, Hyperinsulinemia E16.1 ; Chronic pain G89.29 ; Primary insomnia F51.01 ; Chronic obstructive pulmonary disease, unspecified COPD type J44.9 ; Dysthymia F34.1 ; Hypertriglyceridemia E78.1 ; Fatigue, unspecified type R53.83 and Rash R21 [place] [address] [address] March, Chronic pain G89.29 and Insomnia, unspecified type G47.00 [place] [id number] [place] [address] March, Insomnia, unspecified type G47.00 [facility] [address] [address] Feb, Chronic pain G89.29 [facility] [id number] [place] [address] Feb, Chronic pain G89.29 [facility] [id number] [place] [address] Jan, Chronic pain G89.29 [facility] [id number] [place] [address] Dec, Chronic pain G89.29 [facility] [id number] [place] [address] Nov, Chronic pain G89.29 and Insomnia, unspecified type G47.00 [place] [id number] [place] [address] Oct, Insomnia, unspecified type G47.00 ; Chronic pain G89.29 and Colon cancer screening Z12.11 [place] [id number] [place] [address] Oct, Chronic pain G89.29 [facility] [id number] [place] [address] Sep, Chronic pain G89.29 and Insomnia, unspecified type G47.00 [place] [address] [address] Sep, Chronic pain G89.29 [facility] [address] [address] Sep, [place] [id number] [place] [address] Aug, Medicare welcome exam Z00.00 ; Encounter for immunization Z23 ; Colon cancer screening Z12.11 and Encounter for screening for lung cancer Z12.2 [place] [id number] [place] [address] Aug, [facility] [id number] [place] [address] Aug, Chronic pain G89.29 and Insomnia, unspecified type G47.00 [facility] [id number] [place] [address] Aug, Hypertriglyceridemia E78.1 [facility] [address] [address] Jul, Chronic pain G89.29 and Insomnia, unspecified type G47.00 [place] [address] [address] Jun, Hypertriglyceridemia E78.1 [place] [id number] [place] [address] Jun, Chronic pain G89.29 and Insomnia, unspecified type G47.00 [facility] [id number] [place] [address] Jun, [place] [address] [address] Jun, [place] [id number] [place] [address] May, Hyperinsulinemia E16.1 ; Chronic pain G89.29 ; Insomnia, unspecified type G47.00 and Rash R21 [place] [id number] [place] [address] May, Chronic pain G89.29 [facility] [id number] [place] [address] May, Hypertriglyceridemia E78.1 [facility] [id number] [place] [address] Apr, Chronic pain G89.29 [facility] [id number] [place] [address] Apr, Chronic pain G89.29 ; Hyperinsulinemia E16.1 ; Hypertriglyceridemia E78.1 and Primary insomnia F51.01 [facility] [address] [address] March, Chronic pain G89.29 [facility] [id number] [place] [address] March, Chronic pain G89.29 [facility] [address] [address] Feb, [facility] [address] [address] Feb, Chronic pain G89.29 [facility] [address] [address] Jan, Chronic pain G89.29 [facility] [address] [address] Dec, Chronic pain G89.29 [facility] [address] [address] Dec, [facility] [address] [address] Nov, Hypertriglyceridemia E78.1 [facility] [address] [address] Nov, [facility] [address] [address] Nov, Chronic pain G89.29 ; Hypertriglyceridemia E78.1 and Chronic obstructive pulmonary disease, unspecified COPD type J44.9 [facility] [address] [address] Nov, Chronic pain G89.29 [facility] [id number] [place] [address] Oct, Chronic pain G89.29 [facility] [id number] [place] [address] Oct, [facility] [address] [address] Sep, Chronic obstructive pulmonary disease, unspecified COPD type J44.9 and Abscess L02.91 [facility] [address] [address] Sep, Chronic pain G89.29 [facility] [address] [address] Aug, Chronic pain G89.29 [place] [address] [address] Aug, Chronic pain G89.29 [place] [address] [address] Aug, Cutaneous horn L85.8 and Skin tag L91.8 [place] [address] [address] Jul, [place] [address] [address] 09 Jul, 2016 Hypertriglyceridemia E78.1 [place] [id number] [place] [address] 07 Jul, 2016 Other chronic pain G89.29 ; Essential hypertension I10 ; Hyperinsulinemia E16.1 ; Hyperlipidemia, unspecified hyperlipidemia type E78.5 and Cutaneous horn L85.8 [facility] [id number] [place] [address] Jun, Chronic pain G89.29 [place] [address] [address] May, Chronic pain G89.29 [facility] [id number] [place] [address] May, [place] [address] [address] May, Skin infection L08.9 [facility] [id number] [place] [address] Apr, Chronic pain G89.29 [facility] [id number] [place] [address] Apr, [facility] [id number] [place] [address] Apr, Chronic pain G89.29 [facility] [id number] [place] [address] March, [facility] [id number] [place] [address] Feb, Chronic pain G89.29 ; Hyperinsulinemia E16.1 and Hypertriglyceridemia E78.1 [facility] [id number] [place] [address] Feb, [facility] [id number] [place] [address] Jan, [facility] [id number] [place] [address] Dec, [facility] [id number] [place] [address] Nov, [facility] [id number] [place] [address] Oct, [facility] [id number] [place] [address] Oct, Hyperinsulinemia E16.1 [facility] [id number] [place] [address] Oct, Other chronic pain G89.29 ; Chronic obstructive pulmonary disease, unspecified COPD type J44.9 ; Insomnia, unspecified type G47.00 ; Hyperinsulinemia E16.1 and Essential hypertension I10 [facility] [id number] [place] [address] Sep, [facility] [id number] [place] [address] Aug, [facility] [id number] [place] [address] 30 Jul, 2015 [facility] [id number] [place] [address] Jul, [facility] [address] [address] Jul, Overweight 278.02 and Hyperinsulinemia 251.1 [facility] [address] [address] Jul, [facility] [address] [address] Jun, Skin tags, multiple acquired 701.9 [facility] [address] [address] Jun, Other chronic pain 338.29 ; Erectile dysfunction 607.84 ; Hyperinsulinemia 251.1 and Hypertension 401.9 [facility] [id number] [place] [address] Jun, [facility] [id number] [place] [address] Jun, [facility] [id number] [place] [address] Jun, [facility] [id number] [place] [address] May, Pure hyperglyceridemia 272.1 [facility] [id number] [place] [address] May, Pure hyperglyceridemia 272.1 [facility] [id number] [place] [address] May, [facility] [id number] [place] [address] May, Overgrown toenails 703.8 ; Seborrheic keratosis 702.19 ; Skin tag 701.9 ; Warts, genital 078.11 ; Cramps, extremity 729.82 ; Increased appetite 783.6 and Heat rash 705.1 [facility] [address] [address] May, [facility] [id number] [place] [address] Apr, [facility] [id number] [place] [address] Apr, [facility] [id number] [place] [address] March, [facility] [id number] [place] [address] Feb, [facility] [id number] [place] [address] Feb, [facility] [address] [address] Jan, [facility] [id number] [address] Jan, [facility] [address] [address] Jan, [facility] [address] [address] 27 Jan, 2015 [facility] [address] [address] Jan, [facility] [id number] [place] [address] 19 Jan, 2015 [facility] [address] [address] 16 Jan, 2015 [facility] [id number] [place] [address], [place] [address] 16 Jan, 2015 [facility] [place] [facility] [address] [id number] [place] [address] 10 Jan, 2015 [facility] [place] [facility] [address] [id number] [place] [address] 10 Jan, 2014 [facility] [place] [facility] [address] [id number] [place] [address] 05 Jan, 2015 [facility] [place] [facility] [address] [id number] [place] [address] 05 Jan, 2015 [facility] [place] [facility] [address] [id number] [place] [address] Dec, 2014 [facility] [place] [facility] [address] [id number] [place] [address] Dec, 2014 [facility] [place] [facility] [address] [id number] [place] [address] Dec, 2014 [facility] [place] [facility] [address] [id number] [place] [address] Dec, [facility] [place] [facility] [address] [id number] [place] [address] Dec, [facility] [place] [facility] [address] [id number] [place] [address] Dec, [facility] [place] [facility] [address] [id number] [place] [address] Dec, [facility] [place] [facility] [address] [id number] [place] [address] Dec, [facility] [place] [facility] [address] [id number] [place] [address] Nov, [facility] [place] [facility] [address] [id number] [place] [address] Nov, [facility] [place] [facility] [address] [id number] [place] [address] Nov, [facility] [place] [facility] [address] [id number] [place] [address] 14 Nov, 2014 [facility] [place] [facility] [address] [id number] [place] [address] Nov, [facility] [place] [facility] [address] [id number] [place] [address] Nov, [facility] [place] [facility] [address] [id number] [place] [address] Nov, [facility] [place] [facility] [address] [id number] [place] [address] Nov, [facility] [place] [facility] [address] [id number] [place] [address] Oct, [facility] [place] [facility] [address] [id number] [place] [address] Oct, [facility] [place] [facility] [address] [id number], [place] [address] Sep, [facility] [place] [facility] [address] [id number] [place] [address] Sep, [facility] [place] [facility] [address] [id number], [place] [address] Sep, [facility] [place] [facility] [address] [id number], [place] [address] Sep, [facility] [place] [facility] [address] [id number], [place] [address] Aug, [facility] [place] [facility] [address] [id number] [place] [address] Aug, [facility] [place] [facility] [address] [id number], [place] [address] Aug, [facility] [place] [facility] [address] [id number], [place] [address] Aug, [facility] [place] [facility] [address] [id number] [place] [address] Aug, [facility] [place] [facility] [address] [id number] [place] [address] Aug, [facility] [place] [facility] [address] [id number] [place] [address] Aug, [facility] [place] [facility] [address] [id number] [place] [address] Aug, [facility] [place] [facility] [address] [id number] [place] [address] Jul, [facility] [place] [facility] [address] [id number] [place] [address] Jul, [facility] [place] [facility] [address] [id number] [place] [address] Jul, [facility] [place] [facility] [address] [id number] [place] [address] Jul, [facility] [place] [facility] [address] [id number] [place] [address] Jul, [facility] [place] [facility] [address] [id number] [place] [address] Jun, [facility] [place] [facility] [address] [id number] [place] [address] Jun, [facility] [place] [facility] [address] [id number] [place] [address] Jun, [facility] [place] [facility] [address] [id number] [place] [address] Jun, [facility] [place] [facility] [address] [id number] [place] [address] Jun, [facility] [place] [facility] [address] [id number] [place] [address] Jun, [facility] [place] [facility] [address] [id number] [place] [address] May, [facility] [place] [facility] [address] [id number] [place] [address] May, [facility] [place] [facility] [address] [id number] [place] [address] May, [facility] [place] [facility] [address] [id number] [place] [address] May, [facility] [place] [facility] [address] [id number] [place] [address] Apr, [facility] [place] [facility] [address] [id number] [place] [address] Apr, [facility] [place] [facility] [address] [id number] [place] [address] Apr, [facility] [place] [facility] [address] [id number] [place] [address] Apr, [facility] [place] [facility] [address] [id number] [place] [address] Apr, [facility] [place] [facility] [address] [id number] [place] [address] Apr, [facility] [place] [facility] [address] [id number] [place] [address] March, [facility] [place] [facility] [address] [id number] [place] [address] March, [facility] [place] [facility] [address] [id number] [place] [address] March, [facility] [place] [facility] [address] [id number] [place] [address] March, [facility] [place] [facility] [address] [id number] [place] [address] Feb, [facility] [place] [facility] [address] [id number] [place] [address] Feb, [facility] [place] [facility] [address] [id number] [place] [address] Feb, [facility] [place] [facility] [address] [id number] [place] [address] Feb, [facility] [place] [facility] [address] [id number] [place] [address] Feb, [facility] [place] [facility] [address] [id number] [place] [address] Feb, [facility] [place] [facility] [address] [id number] [place] [address] Feb, [facility] [place] [facility] [address] [id number] [place] [address] Feb, [facility] [place] [facility] [address] [id number] [place] [address] Feb, [facility] [place] [facility] [address] [id number] [place] [address] Feb, [facility] [place] [facility] [address] [id number] [place] [address] Feb, [facility] [place] [facility] [address] [id number] [place] [address] Feb, [facility] [place] [facility] [address] [id number] [place] [address] Feb, [facility] [place] [facility] [address] [id number] [place] [address] Feb, [facility] [place] [facility] [address] [id number] [place] [address] Feb, [facility] [place] [facility] [address] [id number] [place] [address] Feb, [facility] [place] [facility] [address] [id number] [place] [address] Jan, [facility] [place] [facility] [address] [id number] [place] [address] Jan, [facility] [place] [facility] [address] [id number] [place] [address] Dec, [facility] [place] [facility] [address] [id number] [place] [address] Dec, [facility] [place] [facility] [address] [id number] [place] [address] Dec, [facility] [place] [facility] [address] [id number] [place] [address] Dec, [facility] [place] [facility] [address] [id number] [place] [address] Dec, [facility] [place] [facility] [address] [id number] [place] [address] Dec, [facility] [place] [facility] [address] [id number] [place] [address] Dec, [facility] [place] [facility] [address] [id number] [place] [address] Nov, [facility] [place] [facility] [address] [id number] [place] [address] Nov, [facility] [place] [facility] [address] [id number] [place] [address] Nov, [facility] [place] [facility] [address] [id number] [place] [address] Nov, [facility] [place] [facility] [address] [id number] [place] [address] Oct, [facility] [place] [facility] [address] [id number] [place] [address] Oct, [facility] [place] [facility] [address] [id number] [place] [address] Sep, [facility] [place] [facility] [address] [id number] [place] [address] Sep, [facility] [place] [facility] [address] [id number] [place] [address] Aug, [facility] [place] [facility] [address] [id number] [place] [address] Aug, [facility] [place] [facility] [address] [id number] [place] [address] Aug, [facility] [place] [facility] [address] [id number] [place] [address] Aug, [facility] [place] [facility] [address] [id number] [place] [address] Aug, [facility] [place] [facility] [address] [id number] [place] [address] Aug, [facility] [place] [facility] [address] [id number] [place] [address] Aug, [facility] [place] [facility] [address] [id number] [place] [address] Aug, [facility] [place] [facility] [address] [id number], [place] [address] Aug, [facility] [place] [facility] [address] [id number], [place] [address] Aug, [facility] [place] [facility] [address] [id number], [place] [address] Jun, [facility] [place] [facility] [address] [id number], [place] [address] Jun, [facility] [place] [facility] [address] [id number], [place] [address] May, [facility] [place] [facility] [address] [id number], [place] [address] Apr, [facility] [place] [facility] [address] [id number], [place] [address] Apr, [facility] [place] [facility] [address] [id number], [place] [address] March, [facility] [place] [facility] [address] [id number] [place] [address] Feb, [facility] [address] [id number] [place] [address] Jan, [facility] [address] [id number] [place] [address] Jan, [facility] [address] [id number] [place] [address] Dec, [facility] [address] [id number] [place] [address] Dec, [facility] [address] [id number] [place] [address] Nov, [facility] [address] [id number] [place] [address] Jul, [facility] [address] [id number] [place] [address] Jul, [facility] [address] [id number] [place] [address] Jun, [facility] [address] [id number] [place] [address] May, [facility] [address] [id number] [place] [address] May, [facility] [place] [facility] [address] [id number] [place] [address] May, [facility] [address] [id number] [place] [address] May, [facility] [address] [id number] [place] [address] May, [facility] [place] [facility] [address] [id number] [place] [address] May, [facility] [address] [id number] [place] [address] May, [facility] [address] [facility] [id number] [place] [address] Apr, [facility] [address] [facility] [id number], [place] [address] Apr, [facility] [address] [facility] [id number], [place] [address] Apr, [facility] [address] [facility] [id number], [place] [address] Apr, IMMUNIZATIONS No Known Immunizations SOCIAL HISTORY [...] History MRSA infection 05/2015 Hospitalization History pneumonia 11/01/20187
--- OUTSIDE RECORDS SUMMARY | 2019-07-08 00:16 | XMS REPORT ---
Author Author JOSÉ LUIS RODRÍGUEZ Organization [facility] Address [address] [place] [address] Care Team Providers Care Carding Doubler Name Role Phone JOSÉ LUIS RODRÍGUEZ Unavailable PROBLEMS Type Condition ICD9-CM Code JOV10-GB Code Onset Dates Condition Status SNOMED Code Problem Hypertriglyceridemia E78.1 Active 652574230 Problem Family history of diabetes mellitus Z83.3 Active 670258767 Problem Hyperinsulinemia E16.1 Active 14937051 Problem Insomnia, unspecified type G47.00 Active 041792712 Problem Chronic pain G89.29 Active 24324816 Problem Dysthymia F34.1 Active 89251753 Problem History of MRSA infection Z86.14 Active 463212904 Problem Osteoarthritis M19.90 Active 892159990 Problem Chronic obstructive pulmonary disease, unspecified COPD type J44.9 Active 24422560 Problem Essential hypertension I10 Active 33734375 Problem Primary insomnia F51.01 Active [id number] ALLERGIES No Information ENCOUNTERS Encounter Location Date Diagnosis [facility] [id number] [place] [address] Apr, [facility] [id number] [place] [address] Apr, Chronic pain G89.29 [facility] [id number] [place] [address] March, Chronic pain G89.29 [facility] [id number] [place] [address] March, [facility] [id number] [place] [address] March, [facility] [id number] [place] [address] March, Bronchitis J40 and Shortness of breath R06.02 [place] [id number] [place] [address] Feb, Chronic pain G89.29 [facility] [id number] [place] [address] Feb, Primary insomnia F51.01 [facility] [address] [address] Feb, Chest pain, unspecified type R07.9 [facility] [address] [address] Feb, Insomnia, unspecified type G47.00 [place] [address] [address] Feb, [facility] [address] [address] Feb, Hypertriglyceridemia E78.1 ; Chronic narcotic use F11.90 ; Essential hypertension I10 ; Encounter for immunization Z23 ; Chronic obstructive pulmonary disease, unspecified COPD type J44.9 ; Hyperinsulinemia E16.1 ; Epistaxis R04.0 ; Insomnia, unspecified type G47.00 and Chest pain, unspecified type R07.9 [facility] [place] [id number] [place] [address] Jan, Chronic pain G89.29 and Insomnia, unspecified type G47.00 [facility] [id number] [place] [address] Dec, Chronic pain G89.29 and Insomnia, unspecified type G47.00 [facility] [address] [address] Dec, Chronic pain G89.29 and Insomnia, unspecified type G47.00 [facility] [place] [id number] [place] [address] Nov, Chronic pain G89.29 and Insomnia, unspecified type G47.00 [facility] [place] [id number] [place] [address] Oct, Chronic pain G89.29 and Insomnia, unspecified type G47.00 [facility] [place] [id number] [place] [address] Oct, [facility] [id number] [place] [address] Oct, Pneumonia of left lower lobe due to infectious organism J18.1 and Chronic obstructive pulmonary disease, unspecified COPD type J44.9 [facility] [place] [id number] [place] [address] Oct, Hypertriglyceridemia E78.1 [facility] [id number] [place] [address] Sep, Hypertriglyceridemia E78.1 [facility] [address] [address] Sep, Chronic pain G89.29 and Insomnia, unspecified type G47.00 [facility] [place] [id number] [place] [address] 2018 Seborrheic keratoses L82.1 and Sebaceous cyst L72.3 [facility] [place] [id number] [place] [address] 16 Aug, 2018 Chronic pain G89.29 and Insomnia, unspecified type G47.00 [facility] [id number] [place] [address] 18 Jul, 2018 Seborrheic keratoses L82.1 [facility] [place] [id number] [place] [address] 14 Jul, 2018 Chronic pain G89.29 and Insomnia, unspecified type G47.00 [facility] [id number] [place] [address] Jun, Chronic pain G89.29 and Insomnia, unspecified type G47.00 [facility] [place] [id number] [place] [address] Jun, Seborrheic keratoses L82.1 [facility] [address] [address] May, Dysthymia F34.1 ; Chronic obstructive pulmonary disease, unspecified COPD type J44.9 ; Chronic pain G89.29 ; Insomnia, unspecified type G47.00 ; BMI 40.0-44.9, adult Z68.41 and Other seborrheic keratosis L82.1 [facility] [address] [address] May, Chronic pain G89.29 and Insomnia, unspecified type G47.00 [facility] [address] [address] Apr, Hypertriglyceridemia E78.1 [facility] [address] [address] Apr, Chronic pain G89.29 and Insomnia, unspecified type G47.00 [facility] [address] [address] Apr, Hyperinsulinemia E16.1 ; Hypertriglyceridemia E78.1 and Fatigue, unspecified type R53.83 [facility] [id number] [place] [address] Apr, Hyperinsulinemia E16.1 ; Chronic pain G89.29 ; Primary insomnia F51.01 ; Chronic obstructive pulmonary disease, unspecified COPD type J44.9 ; Dysthymia F34.1 ; Hypertriglyceridemia E78.1 ; Fatigue, unspecified type R53.83 and Rash R21 [place] [address] [address] March, Chronic pain G89.29 and Insomnia, unspecified type G47.00 [facility] [id number] [place] [address] March, Insomnia, unspecified type G47.00 [facility] [address] [address] Feb, Chronic pain G89.29 [facility] [address] [place] [address] Feb, Chronic pain G89.29 [facility] [id number] [place] [address] Jan, Chronic pain G89.29 [facility] [id number] [place] [address] Dec, Chronic pain G89.29 [facility] [id number] [place] [address] Nov, Chronic pain G89.29 and Insomnia, unspecified type G47.00 [facility] [address] [place] [address] Oct, Insomnia, unspecified type G47.00 ; Chronic pain G89.29 and Colon cancer screening Z12.11 [facility] [address] [place] [address] Oct, Chronic pain G89.29 [facility] [id number] [place] [address] Sep, Chronic pain G89.29 and Insomnia, unspecified type G47.00 [facility] [address] [address] Sep, Chronic pain G89.29 [facility] [address] [address] Sep, [facility] [id number] [place] [address] Aug, Medicare welcome exam Z00.00 ; Encounter for immunization Z23 ; Colon cancer screening Z12.11 and Encounter for screening for lung cancer Z12.2 [facility] [address] [place] [address] Aug, [facility] [id number] [place] [address] Aug, Chronic pain G89.29 and Insomnia, unspecified type G47.00 [facility] [id number] [place] [address] Aug, Hypertriglyceridemia E78.1 [facility] [address] [address] Jul, Chronic pain G89.29 and Insomnia, unspecified type G47.00 [place] [address] [address] Jun, Hypertriglyceridemia E78.1 [facility] [id number] [place] [address] Jun, Chronic pain G89.29 and Insomnia, unspecified type G47.00 [facility] [id number] [place] [address] Jun, [place] [address] [address] Jun, [facility] [id number] [place] [address] May, Hyperinsulinemia E16.1 ; Chronic pain G89.29 ; Insomnia, unspecified type G47.00 and Rash R21 [place] [id number] [place] [address] May, Chronic pain G89.29 [facility] [id number] [place] [address] May, Hypertriglyceridemia E78.1 [facility] [id number] [place] [address] Apr, Chronic pain G89.29 [facility] [id number] [place] [address] Apr, Chronic pain G89.29 ; Hyperinsulinemia E16.1 ; Hypertriglyceridemia E78.1 and Primary insomnia F51.01 [facility] [address] [address] March, Chronic pain G89.29 [facility] [id number] [place] [address] March, Chronic pain G89.29 [facility] [address] [address] Feb, [facility] [address] [address] Feb, Chronic pain G89.29 [facility] [address] [address] Jan, Chronic pain G89.29 [facility] [address] [address] Dec, Chronic pain G89.29 [facility] [address] [address] Dec, [facility] [address] [address] Nov, Hypertriglyceridemia E78.1 [facility] [address] [address] Nov, [facility] [address] [address] Nov, Chronic pain G89.29 ; Hypertriglyceridemia E78.1 and Chronic obstructive pulmonary disease, unspecified COPD type J44.9 [facility] [address] [address] Nov, Chronic pain G89.29 [facility] [id number] [place] [address] Oct, Chronic pain G89.29 [facility] [address] [place] [address] Oct, [facility] [address] [address] Sep, Chronic obstructive pulmonary disease, unspecified COPD type J44.9 and Abscess L02.91 [facility] [address] [address] Sep, Chronic pain G89.29 [facility] [address] [address] Aug, Chronic pain G89.29 [place] [address] [address] Aug, Chronic pain G89.29 [place] [address] [address] Aug, Cutaneous horn L85.8 and Skin tag L91.8 [place] [address] [address] Jul, [place] [address] [address] 09 Jul, 2016 Hypertriglyceridemia E78.1 [place] [id number] [place] [address] 07 Jul, 2016 Other chronic pain G89.29 ; Essential hypertension I10 ; Hyperinsulinemia E16.1 ; Hyperlipidemia, unspecified hyperlipidemia type E78.5 and Cutaneous horn L85.8 [facility] [id number] [place] [address] Jun, Chronic pain G89.29 [place] [address] [address] May, Chronic pain G89.29 [facility] [id number] [place] [address] May, [place] [address] [address] May, Skin infection L08.9 [facility] [address] [place] [address] Apr, Chronic pain G89.29 [facility] [id number] [place] [address] Apr, [facility] [id number] [place] [address] Apr, Chronic pain G89.29 [facility] [id number] [place] [address] March, [facility] [id number] [place] [address] Feb, Chronic pain G89.29 ; Hyperinsulinemia E16.1 and Hypertriglyceridemia E78.1 [facility] [id number] [place] [address] Feb, [facility] [id number] [place] [address] Jan, [facility] [id number] [place] [address] Dec, [facility] [id number] [place] [address] Nov, [facility] [id number] [place] [address] Oct, [facility] [id number] [place] [address] Oct, Hyperinsulinemia E16.1 [facility] [id number] [place] [address] Oct, Other chronic pain G89.29 ; Chronic obstructive pulmonary disease, unspecified COPD type J44.9 ; Insomnia, unspecified type G47.00 ; Hyperinsulinemia E16.1 and Essential hypertension I10 [facility] [id number] [place] [address] Sep, [facility] [id number] [place] [address] Aug, [facility] [id number] [place] [address] 30 Jul, 2015 [facility] [id number] [place] [address] Jul, [facility] [address] [address] Jul, Overweight 278.02 and Hyperinsulinemia 251.1 [facility] [address] [address] Jul, [facility] [address] [address] Jun, Skin tags, multiple acquired 701.9 [facility] [address] [address] Jun, Other chronic pain 338.29 ; Erectile dysfunction 607.84 ; Hyperinsulinemia 251.1 and Hypertension 401.9 [facility] [id number] [place] [address] Jun, [facility] [id number] [place] [address] Jun, [facility] [id number] [place] [address] Jun, [facility] [id number] [place] [address] May, Pure hyperglyceridemia 272.1 [facility] [id number] [place] [address] May, Pure hyperglyceridemia 272.1 [facility] [id number] [place] [address] May, [facility] [id number] [place] [address] May, Overgrown toenails 703.8 ; Seborrheic keratosis 702.19 ; Skin tag 701.9 ; Warts, genital 078.11 ; Cramps, extremity 729.82 ; Increased appetite 783.6 and Heat rash 705.1 [facility] [address] [address] May, [facility] [id number] [place] [address] Apr, [facility] [id number] [place] [address] Apr, [facility] [id number] [place] [address] March, [facility] [id number] [place] [address] Feb, [facility] [id number] [place] [address] Feb, [facility] [address], [place] [address] Jan, [facility] [id number] [address] Jan, [facility] [address], [place] [address] Jan, [facility] [address], [place] [address] 27 Jan, 2015 [facility] [address] [address] Jan, [facility] [id number] [place] [address] 19 Jan, 2015 [facility] [address], [place] [address] 16 Jan, 2015 [facility] [id number] [place] [address], [place] [address] 16 Jan, 2015 [facility] [place] [facility] [address] [id number] [place] [address] 10 Jan, 2015 [facility] [place] [facility] [address] [id number] [place] [address] 10 Jan, 2014 [facility] [place] [facility] [address] [id number] [place] [address] 05 Jan, 2015 [facility] [place] [facility] [address] [id number] [place] [address] 05 Jan, 2015 [facility] [place] [facility] [address] [id number] [place] [address] Dec, 2014 [facility] [place] [facility] [address] [id number] [place] [address] Dec, 2014 [facility] [place] [facility] [address] [id number] [place] [address] Dec, 2014 [facility] [place] [facility] [address] [id number] [place] [address] Dec, [facility] [place] [facility] [address] [id number] [place] [address] Dec, [facility] [place] [facility] [address] [id number] [place] [address] Dec, [facility] [place] [facility] [address] [id number] [place] [address] Dec, [facility] [place] [facility] [address] [id number] [place] [address] Dec, [facility] [place] [facility] [address] [id number] [place] [address] Nov, [facility] [place] [facility] [address] [id number] [place] [address] Nov, [facility] [place] [facility] [address] [id number] [place] [address] Nov, [facility] [place] [facility] [address] [id number] [place] [address] 14 Nov, 2014 [facility] [place] [facility] [address] [id number] [place] [address] Nov, [facility] [place] [facility] [address] [id number] [place] [address] Nov, [facility] [place] [facility] [address] [id number] [place] [address] Nov, [facility] [place] [facility] [address] [id number] [place] [address] Nov, [facility] [place] [facility] [address] [id number] [place] [address] Oct, [facility] [place] [facility] [address] [id number] [place] [address] Oct, [facility] [place] [facility] [address] [id number], [place] [address] Sep, [facility] [place] [facility] [address] [id number] [place] [address] Sep, [facility] [place] [facility] [address] [id number], [place] [address] Sep, [facility] [place] [facility] [address] [id number], [place] [address] Sep, [facility] [place] [facility] [address] [id number], [place] [address] Aug, [facility] [place] [facility] [address] [id number] [place] [address] Aug, [facility] [place] [facility] [address] [id number], [place] [address] Aug, [facility] [place] [facility] [address] [id number], [place] [address] Aug, [facility] [place] [facility] [address] [id number] [place] [address] Aug, [facility] [place] [facility] [address] [id number] [place] [address] Aug, [facility] [place] [facility] [address] [id number] [place] [address] Aug, [facility] [place] [facility] [address] [id number] [place] [address] Aug, [facility] [place] [facility] [address] [id number] [place] [address] Jul, [facility] [place] [facility] [address] [id number] [place] [address] Jul, [facility] [place] [facility] [address] [id number] [place] [address] Jul, [facility] [place] [facility] [address] [id number] [place] [address] Jul, [facility] [place] [facility] [address] [id number] [place] [address] Jul, [facility] [place] [facility] [address] [id number] [place] [address] Jun, [facility] [place] [facility] [address] [id number] [place] [address] Jun, [facility] [place] [facility] [address] [id number] [place] [address] Jun, [facility] [place] [facility] [address] [id number] [place] [address] Jun, [facility] [place] [facility] [address] [id number] [place] [address] Jun, [facility] [place] [facility] [address] [id number] [place] [address] Jun, [facility] [place] [facility] [address] [id number] [place] [address] May, [facility] [place] [facility] [address] [id number] [place] [address] May, [facility] [place] [facility] [address] [id number] [place] [address] May, [facility] [place] [facility] [address] [id number] [place] [address] May, [facility] [place] [facility] [address] [id number] [place] [address] Apr, [facility] [place] [facility] [address] [id number] [place] [address] Apr, [facility] [place] [facility] [address] [id number] [place] [address] Apr, [facility] [place] [facility] [address] [id number] [place] [address] Apr, [facility] [place] [facility] [address] [id number] [place] [address] Apr, [facility] [place] [facility] [address] [id number] [place] [address] Apr, [facility] [place] [facility] [address] [id number] [place] [address] March, [facility] [place] [facility] [address] [id number] [place] [address] March, [facility] [place] [facility] [address] [id number] [place] [address] March, [facility] [place] [facility] [address] [id number] [place] [address] March, [facility] [place] [facility] [address] [id number] [place] [address] Feb, [facility] [place] [facility] [address] [id number] [place] [address] Feb, [facility] [place] [facility] [address] [id number] [place] [address] Feb, [facility] [place] [facility] [address] [id number] [place] [address] Feb, [facility] [place] [facility] [address] [id number] [place] [address] Feb, [facility] [place] [facility] [address] [id number] [place] [address] Feb, [facility] [place] [facility] [address] [id number] [place] [address] Feb, [facility] [place] [facility] [address] [id number] [place] [address] Feb, [facility] [place] [facility] [address] [id number] [place] [address] Feb, [facility] [place] [facility] [address] [id number] [place] [address] Feb, [facility] [place] [facility] [address] [id number] [place] [address] Feb, [facility] [place] [facility] [address] [id number] [place] [address] Feb, [facility] [place] [facility] [address] [id number] [place] [address] Feb, [facility] [place] [facility] [address] [id number] [place] [address] Feb, [facility] [place] [facility] [address] [id number] [place] [address] Feb, [facility] [place] [facility] [address] [id number] [place] [address] Feb, [facility] [place] [facility] [address] [id number] [place] [address] Jan, [facility] [place] [facility] [address] [id number] [place] [address] Jan, [facility] [place] [facility] [address] [id number] [place] [address] Dec, [facility] [place] [facility] [address] [id number] [place] [address] Dec, [facility] [place] [facility] [address] [id number] [place] [address] Dec, [facility] [place] [facility] [address] [id number] [place] [address] Dec, [facility] [place] [facility] [address] [id number] [place] [address] Dec, [facility] [place] [facility] [address] [id number] [place] [address] Dec, [facility] [place] [facility] [address] [id number] [place] [address] Dec, [facility] [place] [facility] [address] [id number] [place] [address] Nov, [facility] [place] [facility] [address] [id number] [place] [address] Nov, [facility] [place] [facility] [address] [id number] [place] [address] Nov, [facility] [place] [facility] [address] [id number] [place] [address] Nov, [facility] [place] [facility] [address] [id number] [place] [address] Oct, [facility] [place] [facility] [address] [id number] [place] [address] Oct, [facility] [place] [facility] [address] [id number] [place] [address] Sep, [facility] [place] [facility] [address] [id number] [place] [address] Sep, [facility] [place] [facility] [address] [id number] [place] [address] Aug, [facility] [place] [facility] [address] [id number] [place] [address] Aug, [facility] [place] [facility] [address] [id number] [place] [address] Aug, [facility] [place] [facility] [address] [id number] [place] [address] Aug, [facility] [place] [facility] [address] [id number] [place] [address] Aug, [facility] [place] [facility] [address] [id number] [place] [address] Aug, [facility] [place] [facility] [address] [id number] [place] [address] Aug, [facility] [place] [facility] [address] [id number] [place] [address] Aug, [facility] [place] [facility] [address] [id number], [place] [address] Aug, [facility] [place] [facility] [address] [id number], [place] [address] Aug, [facility] [place] [facility] [address] [id number], [place] [address] Jun, [facility] [place] [facility] [address] [id number], [place] [address] Jun, [facility] [place] [facility] [address] [id number], [place] [address] May, [facility] [place] [facility] [address] [id number], [place] [address] Apr, [facility] [place] [facility] [address] [id number], [place] [address] Apr, [facility] [place] [facility] [address] [id number], [place] [address] March, [facility] [place] [facility] [address] [id number] [place] [address] Feb, [facility] [address] [id number] [place] [address] Jan, [facility] [address] [id number] [place] [address] Jan, [facility] [address] [id number] [place] [address] Dec, [facility] [address] [id number] [place] [address] Dec, [facility] [address] [id number] [place] [address] Nov, [facility] [address] [id number] [place] [address] Jul, [facility] [address] [id number] [place] [address] Jul, [facility] [address] [id number] [place] [address] Jun, [facility] [address] [id number] [place] [address] May, [facility] [address] [id number] [place] [address] May, [facility] [place] [facility] [address] [id number] [place] [address] May, [facility] [address] [id number] [place] [address] May, [facility] [address] [id number] [place] [address] May, [facility] [place] [facility] [address] [id number] [place] [address] May, [facility] [address] [id number] [place] [address] May, [facility] [address] [facility] [id number] [place] [address] Apr, [facility] [address] [facility] [id number], [place] [address] Apr, [facility] [address] [facility] [id number], [place] [address] Apr, [facility] [address] [facility] [id number], [place] [address] Apr, IMMUNIZATIONS No Known Immunizations SOCIAL HISTORY [...]
--- OUTSIDE RECORDS SUMMARY | 2019-07-08 00:16 | XMS REPORT ---
Author Author Migration, Doctor Organization [facility] Address Unknown Phone Unavailable Care Team Providers Care Audience Development Manager Name Role Phone Migration, Doctor Unavailable Unavailable PROBLEMS Type Condition ICD9-CM Code [id number] Code Onset Dates Condition Status SNOMED Code Problem Hypertriglyceridemia E78.1 Active 508387495 Problem Family history of diabetes mellitus Z83.3 Active 379805457 Problem Hyperinsulinemia E16.1 Active 00458702 Problem Insomnia, unspecified type G47.00 Active 733327679 Problem Chronic pain G89.29 Active 21004376 Problem Dysthymia F34.1 Active 49822353 Problem History of MRSA infection Z86.14 Active 799210110 Problem Osteoarthritis M19.90 Active 808329031 Problem Chronic obstructive pulmonary disease, unspecified COPD type J44.9 Active 39207992 Problem Essential hypertension I10 Active 77688636 Problem Primary insomnia F51.01 Active 7330283 ALLERGIES No Information ENCOUNTERS Encounter Location Date Diagnosis [facility] [id number] [place] [address] Apr, [facility] [id number] [place] [address] Apr, Chronic pain G89.29 [facility] [id number] [place] [address] March, Chronic pain G89.29 [facility] [id number] [place] [address] March, [facility] [id number] [place] [address] March, [facility] [id number] [place] [address] March, Bronchitis J40 and Shortness of breath R06.02 [facility] [id number] [place] [address] Feb, Chronic pain G89.29 [facility] [id number] [place] [address] Feb, Primary insomnia F51.01 [facility] [id number] [place] [address] Feb, Chest pain, unspecified type R07.9 [facility] [address] [address] Feb, Insomnia, unspecified type G47.00 [place] [address] [address] Feb, [facility] [facility] [address] [address] Feb, Hypertriglyceridemia E78.1 ; Chronic narcotic use F11.90 ; Essential hypertension I10 ; Encounter for immunization Z23 ; Chronic obstructive pulmonary disease, unspecified COPD type J44.9 ; Hyperinsulinemia E16.1 ; Epistaxis R04.0 ; Insomnia, unspecified type G47.00 and Chest pain, unspecified type R07.9 [facility] [facility] [address] [address] Jan, Chronic pain G89.29 and Insomnia, unspecified type G47.00 [facility] [id number] [place] [address] Dec, Chronic pain G89.29 and Insomnia, unspecified type G47.00 [facility] [id number] [place] [address] Dec, Chronic pain G89.29 and Insomnia, unspecified type G47.00 [facility] [id number] [place] [address] Nov, Chronic pain G89.29 and Insomnia, unspecified type G47.00 [facility] [address] [address] Oct, Chronic pain G89.29 and Insomnia, unspecified type G47.00 [facility] [id number] [place] [address] Oct, [facility] [id number] [place] [address] Oct, Pneumonia of left lower lobe due to infectious organism J18.1 and Chronic obstructive pulmonary disease, unspecified COPD type J44.9 [facility] [address] [address] Oct, Hypertriglyceridemia E78.1 [facility] [id number] [place] [address] Sep, Hypertriglyceridemia E78.1 [facility] [id number] [place] [address] Sep, Chronic pain G89.29 and Insomnia, unspecified type G47.00 [facility] [id number] [place] [address] Aug, Seborrheic keratoses L82.1 and Sebaceous cyst L72.3 [facility] [id number] [place] [address] 16 Aug, 2018 Chronic pain G89.29 and Insomnia, unspecified type G47.00 [facility] [id number] [place] [address] 18 Jul, 2018 Seborrheic keratoses L82.1 [facility] [id number] [place] [address] 14 Jul, 2018 Chronic pain G89.29 and Insomnia, unspecified type G47.00 [facility] [id number] [place] [address] Jun, Chronic pain G89.29 and Insomnia, unspecified type G47.00 [facility] [id number] [place] [address] Jun, Seborrheic keratoses L82.1 [facility] [id number] [place] [address] May, Dysthymia F34.1 ; Chronic obstructive pulmonary disease, unspecified COPD type J44.9 ; Chronic pain G89.29 ; Insomnia, unspecified type G47.00 ; BMI 40.0-44.9, adult Z68.41 and Other seborrheic keratosis L82.1 [place] [address] [address] May, Chronic pain G89.29 and Insomnia, unspecified type G47.00 [place] [address] [address] Apr, Hypertriglyceridemia E78.1 [facility] [address] [address] Apr, Chronic pain G89.29 and Insomnia, unspecified type G47.00 [facility] [id number] [place] [address] Apr, Hyperinsulinemia E16.1 ; Hypertriglyceridemia E78.1 and Fatigue, unspecified type R53.83 [facility] [id number] [place] [address] Apr, Hyperinsulinemia E16.1 ; Chronic pain G89.29 ; Primary insomnia F51.01 ; Chronic obstructive pulmonary disease, unspecified COPD type J44.9 ; Dysthymia F34.1 ; Hypertriglyceridemia E78.1 ; Fatigue, unspecified type R53.83 and Rash R21 [place] [id number] [place] [address] March, Chronic pain G89.29 and Insomnia, unspecified type G47.00 [facility] [id number] [place] [address] March, Insomnia, unspecified type G47.00 [facility] [id number] [place] [address] Feb, Chronic pain G89.29 [facility] [address] [address] Feb, Chronic pain G89.29 [facility] [address] [address] Jan, Chronic pain G89.29 [facility] [id number] [place] [address] Dec, Chronic pain G89.29 [facility] [id number] [place] [address] Nov, Chronic pain G89.29 and Insomnia, unspecified type G47.00 [facility] [id number] [place] [address] Oct, Insomnia, unspecified type G47.00 ; Chronic pain G89.29 and Colon cancer screening Z12.11 [facility] [id number] [place] [address] Oct, Chronic pain G89.29 [facility] [id number] [place] [address] Sep, Chronic pain G89.29 and Insomnia, unspecified type G47.00 [facility] [id number] [place] [address] Sep, Chronic pain G89.29 [facility] [id number] [address] Sep, [facility] [id number] [place] [address] Aug, Medicare welcome exam Z00.00 ; Encounter for immunization Z23 ; Colon cancer screening Z12.11 and Encounter for screening for lung cancer Z12.2 [facility] [address] [address] Aug, [facility] [id number] [place] [address] Aug, Chronic pain G89.29 and Insomnia, unspecified type G47.00 [facility] [address] [address] Aug, Hypertriglyceridemia E78.1 [facility] [address] [address] Jul, Chronic pain G89.29 and Insomnia, unspecified type G47.00 [facility] [address] [address] Jun, Hypertriglyceridemia E78.1 [facility] [address] [address] Jun, Chronic pain G89.29 and Insomnia, unspecified type G47.00 [facility] [facility] [address] [address] Jun, [facility] [address] [address] Jun, [place] [address] [address] May, Hyperinsulinemia E16.1 ; Chronic pain G89.29 ; Insomnia, unspecified type G47.00 and Rash R21 [facility] [facility] [id number] [place] [address] May, Chronic pain G89.29 [facility] [address] [address] May, Hypertriglyceridemia E78.1 [place] [address] [address] Apr, Chronic pain G89.29 [facility] [address] [address] Apr, Chronic pain G89.29 ; Hyperinsulinemia E16.1 ; Hypertriglyceridemia E78.1 and Primary insomnia F51.01 [address] [address] [address] March, Chronic pain G89.29 [facility] [id number] [place] [address] March, Chronic pain G89.29 [facility] [address] [address] Feb, [facility] [id number] [place] [address] Feb, Chronic pain G89.29 [facility] [id number] [place] [address] Jan, Chronic pain G89.29 [facility] [id number] [place] [address] Dec, Chronic pain G89.29 [facility] [id number] [place] [address] Dec, [facility] [id number] [place] [address] Nov, Hypertriglyceridemia E78.1 [facility] [id number] [place] [address] Nov, [facility] [address] [address] Nov, Chronic pain G89.29 ; Hypertriglyceridemia E78.1 and Chronic obstructive pulmonary disease, unspecified COPD type J44.9 [facility] [address] [address] Nov, Chronic pain G89.29 [facility] [id number] [place] [address] Oct, Chronic pain G89.29 [facility] [address] [address] Oct, [facility] [id number] [place] [address] Sep, Chronic obstructive pulmonary disease, unspecified COPD type J44.9 and Abscess L02.91 [address] [address] [address] Sep, Chronic pain G89.29 [address] [address] [address] Aug, Chronic pain G89.29 [address] [address] [address] Aug, Chronic pain G89.29 [facility] [address] [address] Aug, Cutaneous horn L85.8 and Skin tag L91.8 [address] [address] [address] Jul, [place] [address] [address] Jul, Hypertriglyceridemia E78.1 [place] [address] [address] 07 Jul, 2016 Other chronic pain G89.29 ; Essential hypertension I10 ; Hyperinsulinemia E16.1 ; Hyperlipidemia, unspecified hyperlipidemia type E78.5 and Cutaneous horn L85.8 [place] [address] [address] Jun, Chronic pain G89.29 [facility] [id number] [place] [address] May, Chronic pain G89.29 [facility] [facility] [address] [address] May, [place] [address] [address] May, Skin infection L08.9 [place] [address] [address] Apr, Chronic pain G89.29 [facility] [id number] [place] [address] Apr, [facility] [id number] [place] [address] Apr, Chronic pain G89.29 [facility] [address] [address] March, [facility] [address] [address] Feb, Chronic pain G89.29 ; Hyperinsulinemia E16.1 and Hypertriglyceridemia E78.1 [facility] [address] [address] Feb, [facility] [address] [address] Jan, [facility] [address] [address] Dec, [facility] [address] [address] Nov, [facility] [id number] [place] [address] Oct, [facility] [id number] [place] [address] Oct, Hyperinsulinemia E16.1 [facility] [id number] [place] [address] Oct, Other chronic pain G89.29 ; Chronic obstructive pulmonary disease, unspecified COPD type J44.9 ; Insomnia, unspecified type G47.00 ; Hyperinsulinemia E16.1 and Essential hypertension I10 [facility] [id number] [place] [address] Sep, [facility] [address] [address] Aug, [facility] [id number] [place] [address] 30 Jul, 2015 [facility] [address] [address] Jul, [facility] [address] [address] Jul, Overweight 278.02 and Hyperinsulinemia 251.1 [facility] [address] [address] Jul, [facility] [address] [address] Jun, Skin tags, multiple acquired 701.9 [facility] [id number] [place] [address] Jun, Other chronic pain 338.29 ; Erectile dysfunction 607.84 ; Hyperinsulinemia 251.1 and Hypertension 401.9 [facility] [id number] [place] [address] Jun, [facility] [address] [address] Jun, [facility] [id number] [place] [address] Jun, [facility] [id number] [place] [address] May, Pure hyperglyceridemia 272.1 [facility] [id number] [place] [address] May, Pure hyperglyceridemia 272.1 [facility] [id number] [place] [address] May, [facility] [id number] [place] [address] May, Overgrown toenails 703.8 ; Seborrheic keratosis 702.19 ; Skin tag 701.9 ; Warts, genital 078.11 ; Cramps, extremity 729.82 ; Increased appetite 783.6 and Heat rash 705.1 [facility] [id number] [address] May, [facility] [id number] [address] Apr, [facility] [id number] [place] [address] 08 Apr, 2015 [facility] [id number] [place] [address], [place] [address] March, [facility] [id number] [place] [address] Feb, [facility] [id number] [place] [address] Feb, [facility] [id number] [address] 27 Jan, 2015 [facility] [address] [address] 27 Jan, 2015 [facility] [id number] [address] 27 Jan, 2015 [facility] [address] [address] 27 Jan, 2015 [facility] [address] [address] 19 Jan, 2015 [facility] [address] [address] 19 Jan, 2015 [facility] [id number] [address] 16 Jan, 2015 [facility] [address] [address] 16 Jan, 2015 [facility] [id number] [place] [address] 10 Jan, 2014 [facility] [place] [facility] [address] [id number] [place] [address] 10 Jan, 2014 [facility] [place] [facility] [address] [id number] [place] [address] Jan, 2014 [facility] [place] [facility] [address] [id number] [place] [address] 05 Jan, 2014 [facility] [place] [facility] [address] [id number] [place] [address] Dec, 2014 [facility] [place] [facility] [address] [id number] [place] [address] Dec, 2014 [facility] [place] [facility] [address] [facility] [id number] [place] [address] Dec, 2014 [facility] [place] [facility] [address] [facility] [id number] [place] [address] Dec, 2014 [facility] [place] [facility] [address] [id number] [place] [address] Dec, [facility] [place] [facility] [address] [facility] [id number] [place] [address] Dec, [facility] [place] [facility] [address] [facility] [id number] [place] [address] Dec, [facility] [place] [facility] [address] [facility] [id number] [place] [address] Dec, [facility] [place] [facility] [address] [id number] [place] [address] Nov, [facility] [place] [facility] [address] [id number] [place] [address] Nov, [facility] [place] [facility] [address] [facility] [id number] [place] [address] Nov, [facility] [place] [facility] [address] [facility] [id number] [place] [address] Nov, [facility] [place] [facility] [address] [id number] [place] [address] Nov, [facility] [place] [facility] [address] [id number] [place] [address] Nov, [facility] [place] [facility] [address] [facility] [id number] [place] [address] Nov, [facility] [place] [facility] [address] [id number] [place] [address] Nov, [facility] [place] [facility] [address] [id number] [place] [address] Oct, [facility] [place] [facility] [address] [id number] [place] [address] Oct, [facility] [place] [facility] [address] [id number] [place] [address] Sep, [facility] [place] [facility] [address] [id number] [address] Sep, [facility] [place] [facility] [address] [id number] [address] Sep, [facility] [place] [facility] [address] [id number] [address] Sep, [facility] [place] [facility] [address] [id number] [place] [address] Aug, [facility] [place] [facility] [address] [id number] [place] [address] Aug, [facility] [place] [facility] [address] [id number] [address] Aug, [facility] [place] [facility] [address] [id number] [place] [address] Aug, [facility] [place] [facility] [address] [facility] [id number] [place] [address] Aug, [facility] [place] [facility] [address] [id number] [place] [address] Aug, [facility] [place] [facility] [address] [id number] [place] [address] Aug, [facility] [place] [facility] [address] [id number] [place] [address] Aug, [facility] [place] [facility] [address] [id number] [place] [address] Jul, [facility] [place] [facility] [address] [id number] [place] [address] Jul, [facility] [place] [facility] [address] [id number] [place] [address] Jul, [facility] [place] [facility] [address] [id number] [place] [address] Jul, [facility] [place] [facility] [address] [id number] [place] [address] Jul, [facility] [place] [facility] [address] [id number] [place] [address] Jun, [facility] [place] [facility] [address] [id number] [place] [address] Jun, [facility] [place] [facility] [address] [id number] [place] [address] Jun, [facility] [place] [facility] [address] [id number] [place] [address] Jun, [facility] [place] [facility] [address] [id number] [place] [address] Jun, [facility] [place] [facility] [address] [id number] [place] [address] Jun, [facility] [place] [facility] [address] [id number] [place] [address] May, [facility] [place] [facility] [address] [id number] [place] [address] May, [facility] [place] [facility] [address] [id number] [place] [address] May, [facility] [place] [facility] [address] [id number] [place] [address] May, [facility] [place] [facility] [address] [id number] [place] [address] Apr, [facility] [place] [facility] [address] [id number] [place] [address] Apr, [facility] [place] [facility] [address] [id number] [place] [address] Apr, [facility] [place] [facility] [address] [id number] [place] [address] Apr, [facility] [place] [facility] [address] [id number] [place] [address] Apr, [facility] [place] [facility] [address] [id number] [place] [address] Apr, [facility] [place] [facility] [address] [id number] [place] [address] March, [facility] [place] [facility] [address] [id number] [place] [address] March, [facility] [place] [facility] [address] [id number] [place] [address] March, [facility] [place] [facility] [address] [id number] [place] [address] March, [facility] [place] [facility] [address] [id number] [place] [address] Feb, [facility] [place] [facility] [address] [id number] [place] [address] Feb, [facility] [place] [facility] [address] [id number] [place] [address] Feb, [facility] [place] [facility] [address] [id number] [place] [address] Feb, [facility] [place] [facility] [address] [id number] [place] [address] Feb, [facility] [place] [facility] [address] [id number] [place] [address] Feb, [facility] [place] [facility] [address] [id number] [place] [address] Feb, [facility] [place] [facility] [address] [id number] [place] [address] Feb, [facility] [place] [facility] [address] [id number] [place] [address] Feb, [facility] [place] [facility] [address] [id number] [place] [address] Feb, [facility] [place] [facility] [address] [id number] [place] [address] Feb, [facility] [place] [facility] [address] [id number] [place] [address] Feb, [facility] [place] [facility] [address] [id number] [place] [address] Feb, [facility] [place] [facility] [address] [id number] [place] [address] Feb, [facility] [place] [facility] [address] [id number] [place] [address] Feb, [facility] [place] [facility] [address] [id number] [place] [address] Feb, [facility] [place] [facility] [address] [id number] [place] [address] Jan, [facility] [place] [facility] [address] [id number] [place] [address] Jan, [facility] [place] [facility] [address] [id number] [place] [address] Dec, [facility] [place] [facility] [address] [id number] [place] [address] Dec, [facility] [place] [facility] [address] [id number] [place] [address] Dec, [facility] [facility] [address] [id number] [place] [address] Dec, [facility] [place] [facility] [address] [id number] [place] [address] Dec, [facility] [place] [facility] [address] [id number] [place] [address] Dec, [facility] [place] [facility] [address] [id number] [place] [address] Dec, [facility] [place] [facility] [address] [facility] [id number] [place] [address] Nov, [facility] [place] [facility] [address] [id number] [place] [address] Nov, [facility] [place] [facility] [address] [id number] [place] [address] Nov, [facility] [place] [facility] [address] [facility] [id number] [place] [address] Nov, [facility] [address] [id number] [place] [address] Oct, [facility] [place] [facility] [address] [id number] [place] [address] Oct, [facility] [place] [facility] [address] [id number] [place] [address] Sep, [facility] [place] [facility] [address] [id number] [place] [address] Sep, [facility] [place] [facility] [address] [id number] [place] [address] Aug, [facility] [place] [facility] [address] [id number] [place] [address] Aug, [facility] [place] [facility] [address] [id number] [place] [address] Aug, [facility] [place] [facility] [address] [id number] [place] [address] Aug, [facility] [place] [facility] [address] [id number] [place] [address] Aug, [facility] [place] [facility] [address] [id number] [place] [address] Aug, [facility] [place] [facility] [address] [id number] [place] [address] Aug, [facility] [place] [facility] [address] [id number] [place] [address] Aug, [facility] [place] [facility] [address] [id number] [place] [address] Aug, [facility] [place] [facility] [address] [id number] [place] [address] Aug, [facility] [place] [facility] [address] [id number] [place] [address] Jun, [facility] [place] [facility] [address] [id number] [place] [address] Jun, [facility] [place] [facility] [address] [id number] [place] [address] May, [facility] [place] [facility] [address] [id number] [place] [address] Apr, [facility] [address] [id number] [place] [address] Apr, [facility] [address] [id number] [place] [address] March, [facility] [address] [id number] [place] [address] Feb, [facility] [address] [id number] [place] [address] Jan, [facility] [address] [id number] [place] [address] Jan, [facility] [address] [id number] [place] [address] Dec, [facility] [address] [id number] [place] [address] Dec, [facility] [address] [id number] [place] [address] Nov, [facility] [address] [id number] [place] [address] Jul, [facility] [address] [id number] [place] [address] Jul, [facility] [address] [id number] [place] [address] Jun, [facility] [address] [id number] [place] [address] May, [facility] [address] [id number] [place] [address] May, [facility] [address] [id number] [place] [address] May, [facility] [address] [id number] [place] [address] May, [facility] [address] [id number] [place] [address] May, [facility] [address] [id number] [place] [address] May, [facility] [address] [id number] [place] [address] May, [facility] [address] [id number] [place] [address] Apr, [facility] [address] [facility] [id number] [place] [address] Apr, [facility] [address] [facility] [id number] [place] [address] Apr, [facility] [address] [facility] [id number] [place] [address] Apr, IMMUNIZATIONS No Known Immunizations SOCIAL HISTORY Never Assessed REASON FOR VISIT PLAN OF CARE VITAL SIGNS MEDICATIONS Unknown Medications RESULTS No Results PROCEDURES Procedure Date Ordered Result Body Site THER/PROPH/DIAG INJ, SC/IM February 01, 2015 INSTRUCTIONS MEDICATIONS ADMINISTERED No Known Medications MEDICAL (GENERAL) HISTORY Type Description Date Medical History hypogonadism Medical History hyperlipidemia Medical History pre-diabetic Medical History chronic pain Medical History COPD Medical History puenmonia Surgical History skin cancer 1999 Hospitalization History surgery Hospitalization History MRSA infection 05/2015 Hospitalization History pneumonia
--- OUTSIDE RECORDS SUMMARY | 2019-07-08 00:17 | XMS REPORT ---
Author Author JOSÉ LUIS RODRÍGUEZ Organization [facility] Address [address] [place] [address] Care Team Providers Care Division Director Name Role Phone JOSÉ LUIS RODRÍGUEZ Unavailable PROBLEMS Type Condition ICD9-CM Code [id number] Code Onset Dates Condition Status SNOMED Code Problem Hypertriglyceridemia E78.1 Active 508498758 Problem Family history of diabetes mellitus Z83.3 Active 107274906 Problem Hyperinsulinemia E16.1 Active 87675446 Problem Insomnia, unspecified type G47.00 Active 709219682 Problem Chronic pain G89.29 Active 05651915 Problem Dysthymia F34.1 Active 74727097 Problem History of MRSA infection Z86.14 Active 266826854 Problem Osteoarthritis M19.90 Active 266392181 Problem Chronic obstructive pulmonary disease, unspecified COPD type J44.9 Active 71134195 Problem Essential hypertension I10 Active 97010361 Problem Primary insomnia F51.01 Active 5154991 ALLERGIES No Information ENCOUNTERS Encounter Location Date Diagnosis [facility] [id number] [place] [address] Apr, [facility] [id number] [place] [address] Apr, Chronic pain G89.29 [facility] [id number] [place] [address] March, Chronic pain G89.29 [facility] [id number] [place] [address] March, [facility] [id number] [place] [address] March, [facility] [id number] [place] [address] March, Bronchitis J40 and Shortness of breath R06.02 [facility] [id number] [place] [address] Feb, Chronic pain G89.29 [facility] [id number] [place] [address] Feb, Primary insomnia F51.01 [facility] [address] [address] Feb, Chest pain, unspecified type R07.9 [facility] [address] [address] Feb, Insomnia, unspecified type G47.00 [facility] [address] [address] Feb, [facility] [address] [address] Feb, Hypertriglyceridemia E78.1 ; Chronic narcotic use F11.90 ; Essential hypertension I10 ; Encounter for immunization Z23 ; Chronic obstructive pulmonary disease, unspecified COPD type J44.9 ; Hyperinsulinemia E16.1 ; Epistaxis R04.0 ; Insomnia, unspecified type G47.00 and Chest pain, unspecified type R07.9 [facility] [id number] [place] [address] Jan, Chronic pain G89.29 and Insomnia, unspecified type G47.00 [facility] [id number] [place] [address] Dec, Chronic pain G89.29 and Insomnia, unspecified type G47.00 [facility] [address] [address] Dec, Chronic pain G89.29 and Insomnia, unspecified type G47.00 [facility] [id number] [place] [address] Nov, Chronic pain G89.29 and Insomnia, unspecified type G47.00 [facility] [id number] [place] [address] Oct, Chronic pain G89.29 and Insomnia, unspecified type G47.00 [facility] [id number] [place] [address] Oct, [facility] [id number] [place] [address] Oct, Pneumonia of left lower lobe due to infectious organism J18.1 and Chronic obstructive pulmonary disease, unspecified COPD type J44.9 [facility] [id number] [place] [address] Oct, Hypertriglyceridemia E78.1 [facility] [id number] [place] [address] Sep, Hypertriglyceridemia E78.1 [facility] [address] [address] Sep, Chronic pain G89.29 and Insomnia, unspecified type G47.00 [facility] [id number] [place] [address] 2018 Seborrheic keratoses L82.1 and Sebaceous cyst L72.3 [facility] [id number] [place] [address] 16 Aug, 2018 Chronic pain G89.29 and Insomnia, unspecified type G47.00 [facility] [id number] [place] [address] 18 Jul, 2018 Seborrheic keratoses L82.1 [facility] [id number] [place] [address] 14 Jul, 2018 Chronic pain G89.29 and Insomnia, unspecified type G47.00 [facility] [id number] [place] [address] Jun, Chronic pain G89.29 and Insomnia, unspecified type G47.00 [facility] [id number] [place] [address] Jun, Seborrheic keratoses L82.1 [facility] [address] [address] May, Dysthymia F34.1 ; Chronic obstructive pulmonary disease, unspecified COPD type J44.9 ; Chronic pain G89.29 ; Insomnia, unspecified type G47.00 ; BMI 40.0-44.9, adult Z68.41 and Other seborrheic keratosis L82.1 [facility] [address] [address] May, Chronic pain G89.29 and Insomnia, unspecified type G47.00 [facility] [address] [address] Apr, Hypertriglyceridemia E78.1 [facility] [address] [address] Apr, Chronic pain G89.29 and Insomnia, unspecified type G47.00 [facility] [address] [address] Apr, Hyperinsulinemia E16.1 ; Hypertriglyceridemia E78.1 and Fatigue, unspecified type R53.83 [facility] [id number] [place] [address] Apr, Hyperinsulinemia E16.1 ; Chronic pain G89.29 ; Primary insomnia F51.01 ; Chronic obstructive pulmonary disease, unspecified COPD type J44.9 ; Dysthymia F34.1 ; Hypertriglyceridemia E78.1 ; Fatigue, unspecified type R53.83 and Rash R21 [facility] [address] [address] March, Chronic pain G89.29 and Insomnia, unspecified type G47.00 [facility] [id number] [place] [address] March, Insomnia, unspecified type G47.00 [facility] [address] [address] Feb, Chronic pain G89.29 [facility] [id number] [place] [address] Feb, Chronic pain G89.29 [facility] [id number] [place] [address] Jan, Chronic pain G89.29 [facility] [id number] [place] [address] Dec, Chronic pain G89.29 [facility] [id number] [place] [address] Nov, Chronic pain G89.29 and Insomnia, unspecified type G47.00 [facility] [id number] [place] [address] Oct, Insomnia, unspecified type G47.00 ; Chronic pain G89.29 and Colon cancer screening Z12.11 [facility] [id number] [place] [address] Oct, Chronic pain G89.29 [facility] [id number] [place] [address] Sep, Chronic pain G89.29 and Insomnia, unspecified type G47.00 [facility] [address] [address] Sep, Chronic pain G89.29 [facility] [address] [address] Sep, [facility] [id number] [place] [address] Aug, Medicare welcome exam Z00.00 ; Encounter for immunization Z23 ; Colon cancer screening Z12.11 and Encounter for screening for lung cancer Z12.2 [facility] [id number] [place] [address] Aug, [facility] [id number] [place] [address] Aug, Chronic pain G89.29 and Insomnia, unspecified type G47.00 [facility] [id number] [place] [address] Aug, Hypertriglyceridemia E78.1 [facility] [address] [address] Jul, Chronic pain G89.29 and Insomnia, unspecified type G47.00 [facility] [address] [address] Jun, Hypertriglyceridemia E78.1 [facility] [id number] [place] [address] Jun, Chronic pain G89.29 and Insomnia, unspecified type G47.00 [facility] [id number] [place] [address] Jun, [facility] [address] [address] Jun, [facility] [id number] [place] [address] May, Hyperinsulinemia E16.1 ; Chronic pain G89.29 ; Insomnia, unspecified type G47.00 and Rash R21 [facility] [id number] [place] [address] May, Chronic pain G89.29 [facility] [id number] [place] [address] May, Hypertriglyceridemia E78.1 [facility] [id number] [place] [address] Apr, Chronic pain G89.29 [facility] [id number] [place] [address] Apr, Chronic pain G89.29 ; Hyperinsulinemia E16.1 ; Hypertriglyceridemia E78.1 and Primary insomnia F51.01 [facility] [address] [address] March, Chronic pain G89.29 [facility] [id number] [place] [address] March, Chronic pain G89.29 [facility] [address] [address] Feb, [facility] [address] [address] Feb, Chronic pain G89.29 [facility] [address] [address] Jan, Chronic pain G89.29 [facility] [address] [address] Dec, Chronic pain G89.29 [facility] [address] [address] Dec, [facility] [address] [address] Nov, Hypertriglyceridemia E78.1 [facility] [address] [address] Nov, [facility] [address] [address] Nov, Chronic pain G89.29 ; Hypertriglyceridemia E78.1 and Chronic obstructive pulmonary disease, unspecified COPD type J44.9 [facility] [address] [address] Nov, Chronic pain G89.29 [facility] [id number] [place] [address] Oct, Chronic pain G89.29 [facility] [address] [place] [address] Oct, [facility] [address] [address] Sep, Chronic obstructive pulmonary disease, unspecified COPD type J44.9 and Abscess L02.91 [facility] [address] [address] Sep, Chronic pain G89.29 [facility] [address] [address] Aug, Chronic pain G89.29 [facility] [address] [address] Aug, Chronic pain G89.29 [facility] [address] [address] Aug, Cutaneous horn L85.8 and Skin tag L91.8 [facility] [place] [address] [address] Jul, [facility] [address] [address] 09 Jul, 2016 Hypertriglyceridemia E78.1 [facility] [id number] [place] [address] 07 Jul, 2016 Other chronic pain G89.29 ; Essential hypertension I10 ; Hyperinsulinemia E16.1 ; Hyperlipidemia, unspecified hyperlipidemia type E78.5 and Cutaneous horn L85.8 [facility] [id number] [place] [address] Jun, Chronic pain G89.29 [facility] [address] [address] May, Chronic pain G89.29 [facility] [id number] [place] [address] May, [facility] [address] [address] May, Skin infection L08.9 [facility] [id number] [place] [address] Apr, Chronic pain G89.29 [facility] [id number] [place] [address] Apr, [facility] [id number] [place] [address] Apr, Chronic pain G89.29 [facility] [id number] [place] [address] March, [facility] [id number] [place] [address] Feb, Chronic pain G89.29 ; Hyperinsulinemia E16.1 and Hypertriglyceridemia E78.1 [facility] [id number] [place] [address] Feb, [facility] [id number] [place] [address] Jan, [facility] [id number] [place] [address] Dec, [facility] [id number] [place] [address] Nov, [facility] [id number] [place] [address] Oct, [facility] [id number] [place] [address] Oct, Hyperinsulinemia E16.1 [facility] [id number] [place] [address] Oct, Other chronic pain G89.29 ; Chronic obstructive pulmonary disease, unspecified COPD type J44.9 ; Insomnia, unspecified type G47.00 ; Hyperinsulinemia E16.1 and Essential hypertension I10 [facility] [id number] [place] [address] Sep, [facility] [id number] [place] [address] Aug, [facility] [id number] [place] [address] 30 Jul, 2015 [facility] [id number] [place] [address] Jul, [facility] [address] [address] Jul, Overweight 278.02 and Hyperinsulinemia 251.1 [facility] [address] [address] Jul, [facility] [address] [address] Jun, Skin tags, multiple acquired 701.9 [facility] [address] [address] Jun, Other chronic pain 338.29 ; Erectile dysfunction 607.84 ; Hyperinsulinemia 251.1 and Hypertension 401.9 [facility] [id number] [place] [address] Jun, [facility] [id number] [place] [address] Jun, [facility] [id number] [place] [address] Jun, [facility] [id number] [place] [address] May, Pure hyperglyceridemia 272.1 [facility] [id number] [place] [address] May, Pure hyperglyceridemia 272.1 [facility] [id number] [place] [address] May, [facility] [id number] [place] [address] May, Overgrown toenails 703.8 ; Seborrheic keratosis 702.19 ; Skin tag 701.9 ; Warts, genital 078.11 ; Cramps, extremity 729.82 ; Increased appetite 783.6 and Heat rash 705.1 [facility] [address] [address] May, [facility] [id number] [place] [address] Apr, [facility] [id number] [place] [address] Apr, [facility] [id number] [place] [address] March, [facility] [id number] [place] [address] Feb, [facility] [id number] [place] [address] Feb, [facility] [address] [address] Jan, [facility] [id number] [address] Jan, [facility] [address] [address] Jan, [facility] [address] [address] 27 Jan, 2015 [facility] [address] [address] Jan, [facility] [id number] [place] [address] 19 Jan, 2015 [facility] [address] [address] 16 Jan, 2015 [facility] [id number] [place] [address], [place] [address] 16 Jan, 2015 [facility] [place] [facility] [address] [id number] [place] [address] 10 Jan, 2015 [facility] [place] [facility] [address] [id number] [place] [address] 10 Jan, 2014 [facility] [place] [facility] [address] [id number] [place] [address] 05 Jan, 2015 [facility] [place] [facility] [address] [id number] [place] [address] 05 Jan, 2015 [facility] [place] [facility] [address] [id number] [place] [address] Dec, 2014 [facility] [place] [facility] [address] [id number] [place] [address] Dec, 2014 [facility] [place] [facility] [address] [id number] [place] [address] Dec, 2014 [facility] [place] [facility] [address] [id number] [place] [address] Dec, [facility] [place] [facility] [address] [id number] [place] [address] Dec, [facility] [place] [facility] [address] [id number] [place] [address] Dec, [facility] [place] [facility] [address] [id number] [place] [address] Dec, [facility] [place] [facility] [address] [id number] [place] [address] Dec, [facility] [place] [facility] [address] [id number] [place] [address] Nov, [facility] [place] [facility] [address] [id number] [place] [address] Nov, [facility] [place] [facility] [address] [id number] [place] [address] Nov, [facility] [place] [facility] [address] [id number] [place] [address] 14 Nov, 2014 [facility] [place] [facility] [address] [id number] [place] [address] Nov, [facility] [place] [facility] [address] [id number] [place] [address] Nov, [facility] [place] [facility] [address] [id number] [place] [address] Nov, [facility] [place] [facility] [address] [id number] [place] [address] Nov, [facility] [place] [facility] [address] [id number] [place] [address] Oct, [facility] [place] [facility] [address] [id number] [place] [address] Oct, [facility] [place] [facility] [address] [id number] [address] Sep, [facility] [place] [facility] [address] [id number] [place] [address] Sep, [facility] [place] [facility] [address] [id number] [address] Sep, [facility] [place] [facility] [address] [id number] [address] Sep, [facility] [place] [facility] [address] [id number] [address] Aug, [facility] [place] [facility] [address] [id number] [place] [address] Aug, [facility] [place] [facility] [address] [id number] [address] Aug, [facility] [place] [facility] [address] [id number] [place] [address] Aug, [facility] [place] [facility] [address] [id number] [place] [address] Aug, [facility] [place] [facility] [address] [id number] [place] [address] Aug, [facility] [place] [facility] [address] [id number] [place] [address] Aug, [facility] [place] [facility] [address] [id number] [place] [address] Aug, [facility] [place] [facility] [address] [id number] [place] [address] Jul, [facility] [place] [facility] [address] [id number] [place] [address] Jul, [facility] [place] [facility] [address] [id number] [place] [address] Jul, [facility] [place] [facility] [address] [id number] [place] [address] Jul, [facility] [place] [facility] [address] [id number] [place] [address] Jul, [facility] [place] [facility] [address] [id number] [place] [address] Jun, [facility] [place] [facility] [address] [id number] [place] [address] Jun, [facility] [place] [facility] [address] [id number] [place] [address] Jun, [facility] [place] [facility] [address] [id number] [place] [address] Jun, [facility] [place] [facility] [address] [id number] [place] [address] Jun, [facility] [place] [facility] [address] [id number] [place] [address] Jun, [facility] [place] [facility] [address] [id number] [place] [address] May, [facility] [place] [facility] [address] [id number] [place] [address] May, [facility] [place] [facility] [address] [id number] [place] [address] May, [facility] [place] [facility] [address] [id number] [place] [address] May, [facility] [place] [facility] [address] [id number] [place] [address] Apr, [facility] [place] [facility] [address] [id number] [place] [address] Apr, [facility] [place] [facility] [address] [id number] [place] [address] Apr, [facility] [place] [facility] [address] [id number] [place] [address] Apr, [facility] [place] [facility] [address] [id number] [place] [address] Apr, [facility] [place] [facility] [address] [id number] [place] [address] Apr, [facility] [place] [facility] [address] [id number] [place] [address] March, [facility] [place] [facility] [address] [id number] [place] [address] March, [facility] [place] [facility] [address] [id number] [place] [address] March, [facility] [place] [facility] [address] [id number] [place] [address] March, [facility] [place] [facility] [address] [id number] [place] [address] Feb, [facility] [place] [facility] [address] [id number] [place] [address] Feb, [facility] [place] [facility] [address] [id number] [place] [address] Feb, [facility] [place] [facility] [address] [id number] [place] [address] Feb, [facility] [place] [facility] [address] [id number] [place] [address] Feb, [facility] [place] [facility] [address] [id number] [place] [address] Feb, [facility] [place] [facility] [address] [id number] [place] [address] Feb, [facility] [place] [facility] [address] [id number] [place] [address] Feb, [facility] [place] [facility] [address] [id number] [place] [address] Feb, [facility] [place] [facility] [address] [id number] [place] [address] Feb, [facility] [place] [facility] [address] [id number] [place] [address] Feb, [facility] [place] [facility] [address] [id number] [place] [address] Feb, [facility] [place] [facility] [address] [id number] [place] [address] Feb, [facility] [place] [facility] [address] [id number] [place] [address] Feb, [facility] [place] [facility] [address] [id number] [place] [address] Feb, [facility] [place] [facility] [address] [id number] [place] [address] Feb, [facility] [place] [facility] [address] [id number] [place] [address] Jan, [facility] [place] [facility] [address] [id number] [place] [address] Jan, [facility] [place] [facility] [address] [id number] [place] [address] Dec, [facility] [place] [facility] [address] [id number] [place] [address] Dec, [facility] [place] [facility] [address] [id number] [place] [address] Dec, [facility] [place] [facility] [address] [id number] [place] [address] Dec, [facility] [place] [facility] [address] [id number] [place] [address] Dec, [facility] [place] [facility] [address] [id number] [place] [address] Dec, [facility] [place] [facility] [address] [id number] [place] [address] Dec, [facility] [place] [facility] [address] [id number] [place] [address] Nov, [facility] [place] [facility] [address] [id number] [place] [address] Nov, [facility] [place] [facility] [address] [id number] [place] [address] Nov, [facility] [place] [facility] [address] [id number] [place] [address] Nov, [facility] [place] [facility] [address] [id number] [place] [address] Oct, [facility] [place] [facility] [address] [id number] [place] [address] Oct, [facility] [place] [facility] [address] [id number] [place] [address] Sep, [facility] [facility] [address] [id number] [place] [address] Sep, [facility] [place] [facility] [address] [id number] [place] [address] Aug, [facility] [place] [facility] [address] [id number] [place] [address] Aug, [facility] [place] [facility] [address] [id number] [place] [address] Aug, [facility] [place] [facility] [address] [id number] [place] [address] Aug, [facility] [place] [facility] [address] [id number] [place] [address] Aug, [facility] [place] [facility] [address] [id number] [place] [address] Aug, [facility] [place] [facility] [address] [id number] [place] [address] Aug, [facility] [place] [facility] [address] [id number] [place] [address] Aug, [facility] [place] [facility] [address] [id number] [address] Aug, [facility] [address] [id number] [place] [address] Aug, [facility] [address] [id number] [place] [address] Jun, [facility] [address] [id number] [place] [address] Jun, [facility] [place] [facility] [address] [id number] [place] [address] May, [facility] [place] [address] [id number] [place] [address] Apr, [facility] [address] [id number] [place] [address] Apr, [facility] [place] [address] [id number] [place] [address] March, [facility] [place] [address] [id number] [place] [address] Feb, [facility] [address] [id number] [place] [address] Jan, [facility] [address] [id number] [place] [address] Jan, [facility] [address] [id number] [place] [address] Dec, [facility] [address] [id number] [place] [address] Dec, [facility] [address] [id number] [place] [address] Nov, [facility] [address] [id number] [place] [address] Jul, [facility] [address] [id number] [place] [address] Jul, [facility] [address] [id number] [place] [address] Jun, [facility] [address] [id number] [place] [address] May, [facility] [address] [id number] [place] [address] May, [facility] [address] [id number] [place] [address] May, [facility] [address] [id number] [place] [address] May, [facility] [address] [id number] [place] [address] May, [facility] [facility] [address] [id number] [place] [address] May, [facility] [address] [id number] [place] [address] May, [facility] [address] [facility] [id number] [place] [address] Apr, [facility] [address] [facility] [id number] [place] [address] Apr, [facility] [address] [facility] [id number] [place] [address] Apr, [facility] [address] [facility] [id number] [place] [address] Apr, IMMUNIZATIONS No Known Immunizations SOCIAL HISTORY Never Assessed REASON FOR VISIT PLAN OF CARE VITAL SIGNS MEDICATIONS Unknown Medications RESULTS No Results PROCEDURES Procedure Date Ordered Result Body Site ASSAY OF TOTAL TESTOSTERONE Dec 13, 2014 LIPID PANEL Dec 13, 2014 INSTRUCTIONS MEDICATIONS ADMINISTERED No Known Medications MEDICAL (GENERAL) HISTORY Type Description Date Medical History hypogonadism Medical History hyperlipidemia Medical History pre-diabetic Medical History chronic pain Medical History COPD Medical History puenmonia Surgical History skin cancer 1999 Hospitalization History surgery Hospitalization History MRSA infection 05/2015 Hospitalization History pneumonia
--- OUTSIDE RECORDS SUMMARY | 2019-07-08 00:17 | XMS REPORT ---
Author Author JOSÉ LUIS RODRÍGUEZ Organization [facility] [place] Address [address] [place] [address] Care Team Providers Care Customer Program Specialist Name Role Phone JOSÉ LUIS RODRÍGUEZ Unavailable PROBLEMS Type Condition ICD9-CM Code GXP72-PW Code Onset Dates Condition Status SNOMED Code Problem Hypertriglyceridemia E78.1 Active 390252216 Problem Family history of diabetes mellitus Z83.3 Active 832534363 Problem Hyperinsulinemia E16.1 Active 12722205 Problem Insomnia, unspecified type G47.00 Active 935483014 Problem Chronic pain G89.29 Active 80830641 Problem Dysthymia F34.1 Active 56555391 Problem History of MRSA infection Z86.14 Active 361372736 Problem Osteoarthritis M19.90 Active 588583648 Problem Chronic obstructive pulmonary disease, unspecified COPD type J44.9 Active 48779819 Problem Essential hypertension I10 Active 54346315 Problem Primary insomnia F51.01 Active 0851594 ALLERGIES No Information ENCOUNTERS Encounter Location Date Diagnosis [facility] [place] [id number] [place] [address] Apr, [facility] [place] [address] [place] [address] Apr, Chronic pain G89.29 [facility] [place] [id number] [place] [address] March, Chronic pain G89.29 [facility] [place] [id number] [place] [address] March, [facility] [place] [id number] [place] [address] March, [facility] [id number] [place] [address] March, Bronchitis J40 and Shortness of breath R06.02 [place] [id number] [place] [address] Feb, Chronic pain G89.29 [facility] [id number] [place] [address] Feb, Primary insomnia F51.01 [facility] [address] [address] Feb, Chest pain, unspecified type R07.9 [facility] [address] [address] Feb, Insomnia, unspecified type G47.00 [place] [address] [address] Feb, [facility] [address] [address] Feb, Hypertriglyceridemia E78.1 ; Chronic narcotic use F11.90 ; Essential hypertension I10 ; Encounter for immunization Z23 ; Chronic obstructive pulmonary disease, unspecified COPD type J44.9 ; Hyperinsulinemia E16.1 ; Epistaxis R04.0 ; Insomnia, unspecified type G47.00 and Chest pain, unspecified type R07.9 [facility] [id number] [place] [address] Jan, Chronic pain G89.29 and Insomnia, unspecified type G47.00 [facility] [id number] [place] [address] Dec, Chronic pain G89.29 and Insomnia, unspecified type G47.00 [place] [address] [address] Dec, Chronic pain G89.29 and Insomnia, unspecified type G47.00 [facility] [place] [id number] [place] [address] Nov, Chronic pain G89.29 and Insomnia, unspecified type G47.00 [facility] [place] [id number] [place] [address] Oct, Chronic pain G89.29 and Insomnia, unspecified type G47.00 [facility] [place] [id number] [place] [address] Oct, [facility] [id number] [place] [address] Oct, Pneumonia of left lower lobe due to infectious organism J18.1 and Chronic obstructive pulmonary disease, unspecified COPD type J44.9 [facility] [id number] [place] [address] Oct, Hypertriglyceridemia E78.1 [facility] [place] [id number] [place] [address] Sep, Hypertriglyceridemia E78.1 [facility] [place] [address] [address] Sep, Chronic pain G89.29 and Insomnia, unspecified type G47.00 [facility] [place] [id number] [place] [address] 2018 Seborrheic keratoses L82.1 and Sebaceous cyst L72.3 [facility] [place] [id number] [place] [address] 16 Aug, 2018 Chronic pain G89.29 and Insomnia, unspecified type G47.00 [facility] [id number] [place] [address] 18 Jul, 2018 Seborrheic keratoses L82.1 [facility] [place] [id number] [place] [address] 14 Jul, 2018 Chronic pain G89.29 and Insomnia, unspecified type G47.00 [facility] [id number] [place] [address] Jun, Chronic pain G89.29 and Insomnia, unspecified type G47.00 [facility] [place] [id number] [place] [address] Jun, Seborrheic keratoses L82.1 [place] [address] [address] May, Dysthymia F34.1 ; Chronic obstructive pulmonary disease, unspecified COPD type J44.9 ; Chronic pain G89.29 ; Insomnia, unspecified type G47.00 ; BMI 40.0-44.9, adult Z68.41 and Other seborrheic keratosis L82.1 [facility] [address] [address] May, Chronic pain G89.29 and Insomnia, unspecified type G47.00 [facility] [place] [address] [address] Apr, Hypertriglyceridemia E78.1 [facility] [address] [address] Apr, Chronic pain G89.29 and Insomnia, unspecified type G47.00 [facility] [place] [address] [address] Apr, Hyperinsulinemia E16.1 ; Hypertriglyceridemia E78.1 and Fatigue, unspecified type R53.83 [facility] [id number] [place] [address] Apr, Hyperinsulinemia E16.1 ; Chronic pain G89.29 ; Primary insomnia F51.01 ; Chronic obstructive pulmonary disease, unspecified COPD type J44.9 ; Dysthymia F34.1 ; Hypertriglyceridemia E78.1 ; Fatigue, unspecified type R53.83 and Rash R21 [place] [address] [address] March, Chronic pain G89.29 and Insomnia, unspecified type G47.00 [facility] [place] [id number] [place] [address] March, Insomnia, unspecified type G47.00 [facility] [place] [address] [address] Feb, Chronic pain G89.29 [facility] [place] [address] [place] [address] Feb, Chronic pain G89.29 [facility] [place] [id number] [place] [address] Jan, Chronic pain G89.29 [facility] [place] [id number] [place] [address] Dec, Chronic pain G89.29 [facility] [place] [id number] [place] [address] Nov, Chronic pain G89.29 and Insomnia, unspecified type G47.00 [facility] [place] [address] [place] [address] Oct, Insomnia, unspecified type G47.00 ; Chronic pain G89.29 and Colon cancer screening Z12.11 [place] [address] [place] [address] Oct, Chronic pain G89.29 [facility] [place] [id number] [place] [address] Sep, Chronic pain G89.29 and Insomnia, unspecified type G47.00 [facility] [address] [address] Sep, Chronic pain G89.29 [facility] [place] [address] [address] Sep, [facility] [place] [id number] [place] [address] Aug, Medicare welcome exam Z00.00 ; Encounter for immunization Z23 ; Colon cancer screening Z12.11 and Encounter for screening for lung cancer Z12.2 [facility] [address] [place] [address] Aug, [facility] [place] [id number] [place] [address] Aug, Chronic pain G89.29 and Insomnia, unspecified type G47.00 [facility] [place] [id number] [place] [address] Aug, Hypertriglyceridemia E78.1 [facility] [place] [address] [address] Jul, Chronic pain G89.29 and Insomnia, unspecified type G47.00 [place] [address] [address] Jun, Hypertriglyceridemia E78.1 [facility] [place] [id number] [place] [address] Jun, Chronic pain G89.29 and Insomnia, unspecified type G47.00 [facility] [place] [id number] [place] [address] Jun, [facility] [address] [address] Jun, [facility] [place] [id number] [place] [address] May, Hyperinsulinemia E16.1 ; Chronic pain G89.29 ; Insomnia, unspecified type G47.00 and Rash R21 [place] [id number] [place] [address] May, Chronic pain G89.29 [facility] [place] [id number] [place] [address] May, Hypertriglyceridemia E78.1 [facility] [place] [id number] [place] [address] Apr, Chronic pain G89.29 [facility] [place] [id number] [place] [address] Apr, Chronic pain G89.29 ; Hyperinsulinemia E16.1 ; Hypertriglyceridemia E78.1 and Primary insomnia F51.01 [facility] [place] [address] [address] March, Chronic pain G89.29 [facility] [place] [id number] [place] [address] March, Chronic pain G89.29 [facility] [place] [address] [address] Feb, [facility] [place] [address] [address] Feb, Chronic pain G89.29 [facility] [place] [address] [address] Jan, Chronic pain G89.29 [facility] [place] [address] [address] Dec, Chronic pain G89.29 [facility] [place] [address] [address] Dec, [facility] [place] [address] [address] Nov, Hypertriglyceridemia E78.1 [facility] [place] [address] [address] Nov, [facility] [place] [address] [address] Nov, Chronic pain G89.29 ; Hypertriglyceridemia E78.1 and Chronic obstructive pulmonary disease, unspecified COPD type J44.9 [facility] [place] [address] [address] Nov, Chronic pain G89.29 [facility] [place] [id number] [place] [address] Oct, Chronic pain G89.29 [facility] [place] [address] [place] [address] Oct, [facility] [place] [address] [address] Sep, Chronic obstructive pulmonary disease, unspecified COPD type J44.9 and Abscess L02.91 [facility] [place] [address] [address] Sep, Chronic pain G89.29 [facility] [place] [address] [address] Aug, Chronic pain G89.29 [facility] [place] [address] [address] Aug, Chronic pain G89.29 [facility] [address] [address] Aug, Cutaneous horn L85.8 and Skin tag L91.8 [place] [address] [address] Jul, [facility] [place] [address] [address] 09 Jul, 2016 Hypertriglyceridemia E78.1 [place] [id number] [place] [address] 07 Jul, 2016 Other chronic pain G89.29 ; Essential hypertension I10 ; Hyperinsulinemia E16.1 ; Hyperlipidemia, unspecified hyperlipidemia type E78.5 and Cutaneous horn L85.8 [facility] [place] [id number] [place] [address] Jun, Chronic pain G89.29 [place] [place] [address] [address] May, Chronic pain G89.29 [facility] [place] [id number] [place] [address] May, [facility] [address] [address] May, Skin infection L08.9 [facility] [place] [address] [place] [address] Apr, Chronic pain G89.29 [facility] [place] [id number] [place] [address] Apr, [facility] [place] [id number] [place] [address] Apr, Chronic pain G89.29 [facility] [place] [id number] [place] [address] March, [facility] [place] [id number] [place] [address] Feb, Chronic pain G89.29 ; Hyperinsulinemia E16.1 and Hypertriglyceridemia E78.1 [facility] [place] [id number] [place] [address] Feb, [facility] [place] [id number] [place] [address] Jan, [facility] [place] [id number] [place] [address] Dec, [facility] [place] [id number] [place] [address] Nov, [facility] [place] [id number] [place] [address] Oct, [facility] [place] [id number] [place] [address] Oct, Hyperinsulinemia E16.1 [facility] [place] [id number] [place] [address] Oct, Other chronic pain G89.29 ; Chronic obstructive pulmonary disease, unspecified COPD type J44.9 ; Insomnia, unspecified type G47.00 ; Hyperinsulinemia E16.1 and Essential hypertension I10 [facility] [place] [id number] [place] [address] Sep, [facility] [place] [id number] [place] [address] Aug, [facility] [place] [id number] [place] [address] 30 Jul, 2015 [facility] [place] [id number] [place] [address] Jul, [facility] [place] [address] [address] Jul, Overweight 278.02 and Hyperinsulinemia 251.1 [facility] [place] [address] [address] Jul, [facility] [place] [address] [address] Jun, Skin tags, multiple acquired 701.9 [facility] [place] [address] [address] Jun, Other chronic pain 338.29 ; Erectile dysfunction 607.84 ; Hyperinsulinemia 251.1 and Hypertension 401.9 [facility] [place] [id number] [place] [address] Jun, [facility] [place] [id number] [place] [address] Jun, [facility] [place] [id number] [place] [address] Jun, [facility] [place] [id number] [place] [address] May, Pure hyperglyceridemia 272.1 [facility] [place] [id number] [place] [address] May, Pure hyperglyceridemia 272.1 [facility] [place] [id number] [place] [address] May, [facility] [place] [id number] [place] [address] May, Overgrown toenails 703.8 ; Seborrheic keratosis 702.19 ; Skin tag 701.9 ; Warts, genital 078.11 ; Cramps, extremity 729.82 ; Increased appetite 783.6 and Heat rash 705.1 [facility] [address] [address] May, [facility] [id number] [place] [address] Apr, [facility] [id number] [place] [address] Apr, [facility] [id number] [place] [address] March, [facility] [id number] [place] [address] Feb, [facility] [id number] [place] [address] Feb, [facility] [address] [address] Jan, [facility] [address] [address] Jan, [facility] [address] [address] Jan, [facility] [address] [address] 27 Jan, 2015 [facility] [address] [address] Jan, [facility] [id number] [place] [address] 19 Jan, 2015 [facility] [address] [address] 16 Jan, 2015 [facility] [id number] [place] [address], [place] [address] 16 Jan, 2015 [facility] [place] [facility] [address] [id number] [place] [address] 10 Jan, 2015 [facility] [place] [facility] [address] [id number] [place] [address] 10 Jan, 2014 [facility] [place] [facility] [address] [id number] [place] [address] 05 Jan, 2015 [facility] [place] [facility] [address] [id number] [place] [address] 05 Jan, 2015 [facility] [place] [facility] [address] [id number] [place] [address] Dec, 2014 [facility] [place] [facility] [address] [id number] [place] [address] Dec, 2014 [facility] [place] [facility] [address] [id number] [place] [address] Dec, 2014 [facility] [place] [facility] [address] [id number] [place] [address] Dec, [facility] [place] [facility] [address] [id number] [place] [address] Dec, [facility] [place] [facility] [address] [id number] [place] [address] Dec, [facility] [place] [facility] [address] [id number] [place] [address] Dec, [facility] [place] [facility] [address] [id number] [place] [address] Dec, [facility] [place] [facility] [address] [id number] [place] [address] Nov, [facility] [place] [facility] [address] [id number] [place] [address] Nov, [facility] [place] [facility] [address] [id number] [place] [address] Nov, [facility] [place] [facility] [address] [id number] [place] [address] 14 Nov, 2014 [facility] [place] [facility] [address] [id number] [place] [address] Nov, [facility] [place] [facility] [address] [id number] [place] [address] Nov, [facility] [place] [facility] [address] [id number] [place] [address] Nov, [facility] [place] [facility] [address] [id number] [place] [address] Nov, [facility] [place] [facility] [address] [id number] [place] [address] Oct, [facility] [place] [facility] [address] [id number] [place] [address] Oct, [facility] [place] [facility] [address] [id number] [place] [address] Sep, [facility] [place] [facility] [address] [id number] [place] [address] Sep, [facility] [place] [facility] [address] [id number] [place] [address] Sep, [facility] [place] [facility] [address] [id number] [place] [address] Sep, [facility] [place] [facility] [address] [id number] [place] [address] Aug, [facility] [place] [facility] [address] [id number] [place] [address] Aug, [facility] [place] [facility] [address] [id number] [place] [address] Aug, [facility] [place] [facility] [address] [id number] [place] [address] Aug, [facility] [place] [facility] [address] [id number] [place] [address] Aug, [facility] [place] [facility] [address] [id number] [place] [address] Aug, [facility] [place] [facility] [address] [id number] [place] [address] Aug, [facility] [place] [facility] [address] [id number] [place] [address] Aug, [facility] [place] [facility] [address] [id number] [place] [address] Jul, [facility] [place] [facility] [address] [id number] [place] [address] Jul, [facility] [place] [facility] [address] [id number] [place] [address] Jul, [facility] [place] [facility] [address] [id number] [place] [address] Jul, [facility] [place] [facility] [address] [id number] [place] [address] Jul, [facility] [place] [facility] [address] [id number] [place] [address] Jun, [facility] [place] [facility] [address] [id number] [place] [address] Jun, [facility] [place] [facility] [address] [id number] [place] [address] Jun, [facility] [place] [facility] [address] [id number] [place] [address] Jun, [facility] [place] [facility] [address] [id number] [place] [address] Jun, [facility] [place] [facility] [address] [id number] [place] [address] Jun, [facility] [place] [facility] [address] [id number] [place] [address] May, [facility] [place] [facility] [address] [id number] [place] [address] May, [facility] [place] [facility] [address] [id number] [place] [address] May, [facility] [place] [facility] [address] [id number] [place] [address] May, [facility] [place] [facility] [address] [id number] [place] [address] Apr, [facility] [place] [facility] [address] [id number] [place] [address] Apr, [facility] [place] [facility] [address] [id number] [place] [address] Apr, [facility] [place] [facility] [address] [id number] [place] [address] Apr, [facility] [place] [facility] [address] [id number] [place] [address] Apr, [facility] [place] [facility] [address] [id number] [place] [address] Apr, [facility] [place] [facility] [address] [id number] [place] [address] March, [facility] [place] [facility] [address] [id number] [place] [address] March, [facility] [place] [facility] [address] [id number] [place] [address] March, [facility] [place] [facility] [address] [id number] [place] [address] March, [facility] [place] [facility] [address] [id number] [place] [address] Feb, [facility] [place] [facility] [address] [id number] [place] [address] Feb, [facility] [place] [facility] [address] [id number] [place] [address] Feb, [facility] [place] [facility] [address] [id number] [place] [address] Feb, [facility] [place] [facility] [address] [id number] [place] [address] Feb, [facility] [place] [facility] [address] [id number] [place] [address] Feb, [facility] [place] [facility] [address] [id number] [place] [address] Feb, [facility] [place] [facility] [address] [id number] [place] [address] Feb, [facility] [place] [facility] [address] [id number] [place] [address] Feb, [facility] [place] [facility] [address] [id number] [place] [address] Feb, [facility] [place] [facility] [address] [id number] [place] [address] Feb, [facility] [place] [facility] [address] [id number] [place] [address] Feb, [facility] [facility] [address] [id number] [place] [address] Feb, [facility] [place] [facility] [address] [id number] [place] [address] Feb, [facility] [place] [facility] [address] [id number] [place] [address] Feb, [facility] [place] [facility] [address] [id number] [place] [address] Feb, [facility] [place] [facility] [address] [id number] [place] [address] Jan, [facility] [place] [facility] [address] [id number] [place] [address] Jan, [facility] [place] [facility] [address] [id number] [place] [address] Dec, [facility] [place] [facility] [address] [id number] [place] [address] Dec, [facility] [place] [facility] [address] [id number] [place] [address] Dec, [facility] [place] [facility] [address] [id number] [place] [address] Dec, [facility] [place] [facility] [address] [id number] [place] [address] Dec, [facility] [place] [facility] [address] [id number] [place] [address] Dec, [facility] [place] [facility] [address] [id number] [place] [address] Dec, [facility] [place] [facility] [address] [id number] [place] [address] Nov, [facility] [place] [facility] [address] [id number] [place] [address] Nov, [facility] [place] [facility] [address] [id number] [place] [address] Nov, [facility] [address] [id number] [place] [address] Nov, [facility] [place] [facility] [address] [id number] [place] [address] Oct, [facility] [place] [facility] [address] [id number] [place] [address] Oct, [facility] [place] [address] [id number] [place] [address] Sep, [facility] [place] [address] [id number] [place] [address] Sep, [facility] [place] [facility] [address] [id number] [place] [address] Aug, [facility] [address] [id number] [place] [address] Aug, [facility] [address] [id number] [place] [address] Aug, [facility] [address] [id number] [place] [address] Aug, [facility] [address] [id number] [place] [address] Aug, [facility] [address] [id number] [place] [address] Aug, [facility] [place] [address] [id number] [place] [address] Aug, [facility] [address] [id number] [place] [address] Aug, [facility] [address] [id number] [address] Aug, [facility] [address] [id number] [place] [address] Aug, [facility] [address] [id number] [place] [address] Jun, [facility] [address] [id number] [place] [address] Jun, [facility] [address] [id number] [place] [address] May, [facility] [address] [id number] [place] [address] Apr, [facility] [address] [id number] [place] [address] Apr, [facility] [address] [id number] [place] [address] March, [facility] [address] [id number] [place] [address] Feb, [facility] [address] [id number] [place] [address] Jan, [facility] [address] [id number] [place] [address] Jan, [facility] [address] [id number] [place] [address] Dec, [facility] [address] [id number] [place] [address] Dec, [facility] [address] [id number] [place] [address] Nov, [facility] [address] [id number] [place] [address] Jul, [facility] [address] [id number] [place] [address] Jul, [facility] [address] [id number] [place] [address] Jun, [facility] [address] [id number] [place] [address] May, [facility] [address] [id number] [place] [address] May[facility] [address] [id number] [place] [address] May, [facility] [address] [id number] [place] [address] May, [facility] [address] [id number] [place] [address] May, [facility] [address] [id number] [place] [address] May, [facility] [address] [id number] [place] [address] May, [facility] [place] [address] [facility] [id number] [place] [address] Apr, [facility] [place] [address] [facility] [id number] [place] [address] Apr, [facility] [place] [address] [facility] [id number] [place] [address] Apr, [facility] [place] [address] [facility] [id number] [place] [address] Apr, IMMUNIZATIONS No Known Immunizations SOCIAL HISTORY [...]
--- OUTSIDE RECORDS SUMMARY | 2019-07-08 00:18 | XMS REPORT ---
Author Author Migration, Doctor Organization [facility] Address Unknown Phone Unavailable Care Team Providers Care Plaster Caster Name Role Phone Migration, Doctor Unavailable Unavailable PROBLEMS Type Condition ICD9-CM Code OGW31-HK Code Onset Dates Condition Status SNOMED Code Problem Hypertriglyceridemia E78.1 Active 086186071 Problem Family history of diabetes mellitus Z83.3 Active 947372846 Problem Hyperinsulinemia E16.1 Active 25292475 Problem Insomnia, unspecified type G47.00 Active 461347568 Problem Chronic pain G89.29 Active 87080040 Problem Dysthymia F34.1 Active 02813385 Problem History of MRSA infection Z86.14 Active 879234548 Problem Osteoarthritis M19.90 Active 766834595 Problem Chronic obstructive pulmonary disease, unspecified COPD type J44.9 Active 08730290 Problem Essential hypertension I10 Active 36661142 Problem Primary insomnia F51.01 Active 8593271 ALLERGIES No Information ENCOUNTERS Encounter Location Date Diagnosis [facility] [id number] [place] [address] Feb, Chronic pain G89.29 [facility] [id number] [place] [address] Feb, Primary insomnia F51.01 [place] [id number] [place] [address] Feb, Chest pain, unspecified type R07.9 [facility] [id number] [place] [address] Feb, Insomnia, unspecified type G47.00 [facility] [id number] [place] [address] Feb, [facility] [id number] [place] [address] Feb, Hypertriglyceridemia E78.1 ; Chronic narcotic use F11.90 ; Essential hypertension I10 ; Encounter for immunization Z23 ; Chronic obstructive pulmonary disease, unspecified COPD type J44.9 ; Hyperinsulinemia E16.1 ; Epistaxis R04.0 ; Insomnia, unspecified type G47.00 and Chest pain, unspecified type R07.9 [facility] [id number] [place] [address] Jan, Chronic pain G89.29 and Insomnia, unspecified type G47.00 [facility] [address] [address] Dec, Chronic pain G89.29 and Insomnia, unspecified type G47.00 [place] [address] [address] [id number] Dec, Chronic pain G89.29 and Insomnia, unspecified type G47.00 [facility] [facility] [address] [address] Nov, Chronic pain G89.29 and Insomnia, unspecified type G47.00 [facility] [address] [address] Oct, Chronic pain G89.29 and Insomnia, unspecified type G47.00 [facility] [id number] [place] [address] Oct, [facility] [id number] [place] [address] Oct, Pneumonia of left lower lobe due to infectious organism J18.1 and Chronic obstructive pulmonary disease, unspecified COPD type J44.9 [facility] [id number] [place] [address] Oct, Hypertriglyceridemia E78.1 [facility] [id number] [place] [address] Sep, Hypertriglyceridemia E78.1 [facility] [id number] [place] [address] Sep, Chronic pain G89.29 and Insomnia, unspecified type G47.00 [facility] [id number] [place] [address] 2018 Seborrheic keratoses L82.1 and Sebaceous cyst L72.3 [facility] [id number] [place] [address] 16 Aug, 2018 Chronic pain G89.29 and Insomnia, unspecified type G47.00 [facility] [id number] [place] [address] 18 Jul, 2018 Seborrheic keratoses L82.1 [place] [address] [place] [address] [address] 14 Jul, 2018 Chronic pain G89.29 and Insomnia, unspecified type G47.00 [facility] [id number] [place] [address] Jun, Chronic pain G89.29 and Insomnia, unspecified type G47.00 [facility] [id number] [place] [address] Jun, Seborrheic keratoses L82.1 [facility] [id number] [place] [address] May, Dysthymia F34.1 ; Chronic obstructive pulmonary disease, unspecified COPD type J44.9 ; Chronic pain G89.29 ; Insomnia, unspecified type G47.00 ; BMI 40.0-44.9, adult Z68.41 and Other seborrheic keratosis L82.1 [facility] [id number] [place] [address] May, Chronic pain G89.29 and Insomnia, unspecified type G47.00 [facility] [id number] [place] [address] Apr, Hypertriglyceridemia E78.1 [facility] [facility] [address] [address] Apr, Chronic pain G89.29 and Insomnia, unspecified type G47.00 [facility] [id number] [place] [address] 15 Apr, 2018 Hyperinsulinemia E16.1 ; Hypertriglyceridemia E78.1 and Fatigue, unspecified type R53.83 [facility] [facility] [id number] [place] [address] Apr, Hyperinsulinemia E16.1 ; Chronic pain G89.29 ; Primary insomnia F51.01 ; Chronic obstructive pulmonary disease, unspecified COPD type J44.9 ; Dysthymia F34.1 ; Hypertriglyceridemia E78.1 ; Fatigue, unspecified type R53.83 and Rash R21 [facility] [address] [address] March, Chronic pain G89.29 and Insomnia, unspecified type G47.00 [facility] [address] [address] March, Insomnia, unspecified type G47.00 [facility] [id number] [place] [address] Feb, Chronic pain G89.29 [facility] [facility] [address] [address] Feb, Chronic pain G89.29 [facility] [id number] [place] [address] Jan, Chronic pain G89.29 [facility] [address] [address] Dec, Chronic pain G89.29 [facility] [address] [address] Nov, Chronic pain G89.29 and Insomnia, unspecified type G47.00 [facility] [id number] [place] [address] Oct, Insomnia, unspecified type G47.00 ; Chronic pain G89.29 and Colon cancer screening Z12.11 [facility] [address] [address] Oct, Chronic pain G89.29 [facility] [id number] [place] [address] Sep, Chronic pain G89.29 and Insomnia, unspecified type G47.00 [facility] [id number] [place] [address] Sep, Chronic pain G89.29 [facility] [id number] [place] [address] Sep, [place] [id number] [place] [address] Aug, Medicare welcome exam Z00.00 ; Encounter for immunization Z23 ; Colon cancer screening Z12.11 and Encounter for screening for lung cancer Z12.2 [facility] [id number] [place] [address] Aug, [facility] [id number] [place] [address] Aug, Chronic pain G89.29 and Insomnia, unspecified type G47.00 [facility] [id number] [place] [address] Aug, Hypertriglyceridemia E78.1 [facility] [id number] [place] [address] Jul, Chronic pain G89.29 and Insomnia, unspecified type G47.00 [facility] [id number] [place] [address] Jun, Hypertriglyceridemia E78.1 [facility] [id number] [place] [address] Jun, Chronic pain G89.29 and Insomnia, unspecified type G47.00 [place] [address] [place] [id number] [place] [address] Jun, [facility] [id number] [place] [address] Jun, [facility] [id number] [place] [address] May, Hyperinsulinemia E16.1 ; Chronic pain G89.29 ; Insomnia, unspecified type G47.[address] [facility] [address] [address] May, Chronic pain G89.29 [facility] [address] [address] May, Hypertriglyceridemia E78.1 [facility] [id number] [place] [address] Apr, Chronic pain G89.29 [facility] [id number] [place] [address] Apr, Chronic pain G89.29 ; Hyperinsulinemia E16.1 ; Hypertriglyceridemia E78.1 and Primary insomnia F51.01 [facility] [id number] [place] [address] March, Chronic pain G89.29 [facility] [id number] [place] [address] March, Chronic pain G89.29 [facility] [id number] [place] [address] Feb, [facility] [id number] [place] [address] Feb, Chronic pain G89.29 [facility] [id number] [place] [address] Jan, Chronic pain G89.29 [facility] [id number] [place] [address] Dec, Chronic pain G89.29 [facility] [id number] [place] [address] Dec, [facility] [id number] [place] [address] Nov, Hypertriglyceridemia E78.1 [facility] [id number] [place] [address] Nov, [facility] [address] [address] Nov, Chronic pain G89.29 ; Hypertriglyceridemia E78.1 and Chronic obstructive pulmonary disease, unspecified COPD type J44.9 [facility] [facility] [address] [address] Nov, Chronic pain G89.29 [facility] [address] [address] Oct, Chronic pain G89.29 [facility] [id number] [place] [address] Oct, [facility] [address] [address] Sep, Chronic obstructive pulmonary disease, unspecified COPD type J44.[address] [facility] [id number] [place] [address] Sep, Chronic pain G89.29 [facility] [id number] [place] [address] Aug, Chronic pain G89.29 [facility] [id number] [place] [address] Aug, Chronic pain G89.29 [facility] [id number] [place] [address] Aug, Cutaneous horn L85.8 and Skin tag L91.8 [facility] [address] [address] Jul, [facility] [id number] [place] [address] Jul, Hypertriglyceridemia E78.1 [facility] [id number] [place] [address] Jul, Other chronic pain G89.29 ; Essential hypertension I10 ; Hyperinsulinemia E16.1 ; Hyperlipidemia, unspecified hyperlipidemia type E78.5 and Cutaneous horn L85.8 [facility] [id number] [place] [address] Jun, Chronic pain G89.29 [facility] [id number] [place] [address] May, Chronic pain G89.29 [facility] [id number] [place] [address] May, [facility] [id number] [place] [address] May, Skin infection L08.9 [facility] [id number] [place] [address] Apr, Chronic pain G89.29 [facility] [id number] [place] [address] Apr, [facility] [id number] [place] [address] Apr, Chronic pain G89.29 [facility] [id number] [place] [address] March, [facility] [id number] [place] [address] Feb, Chronic pain G89.29 ; Hyperinsulinemia E16.[address] [facility] [id number] [place] [address] Feb, [facility] [id number] [place] [address] Jan, [facility] [id number] [place] [address] Dec, [facility] [id number] [place] [address] Nov, [facility] [address] [address] Oct, [facility] [address] [address] Oct, Hyperinsulinemia E16.1 [facility] [address] [address] Oct, Other chronic pain G89.29 ; Chronic obstructive pulmonary disease, unspecified COPD type J44.9 ; Insomnia, unspecified type G47.00 ; Hyperinsulinemia E16.1 and Essential hypertension I10 [facility] [id number] [place] [address] Sep, [facility] [id number] [place] [address] Aug, [facility] [id number] [place] [address] 30 Jul, 2015 [facility] [id number] [place] [address] Jul, [facility] [id number] [place] [address] 14 Jul, 2015 Overweight 278.[address] [facility] [id number] [place] [address] Jul, [facility] [id number] [place] [address] Jun, Skin tags, multiple acquired 701.9 [facility] [id number] [place] [address] Jun, Other chronic pain 338.29 ; Erectile dysfunction 607.84 ; Hyperinsulinemia 251.[address] [facility] [id number] [place] [address] Jun, [facility] [id number] [place] [address] Jun, [facility] [address] [address] Jun, [facility] [address] [address] May, Pure hyperglyceridemia 272.1 [facility] [address] [address] May, Pure hyperglyceridemia 272.1 [facility] [address] [address] May, [facility] [address] [address] May, Overgrown toenails 703.8 ; Seborrheic keratosis 702.19 ; Skin tag 701.9 ; Warts, genital 078.11 ; Cramps, extremity 729.82 ; Increased appetite 783.6 and Heat rash 705.1 [facility] [id number] [place] [address] May, [facility] [id number] [place] [address] Apr, [facility] [id number] [place] [address] Apr, [facility] [address] [address] March, [facility] [id number] [place] [address] Feb, [facility] [address] [address] 13 Feb, 2015 [facility] [place] [facility] [address] [id number] [place] [address] 27 Jan, 2015 [facility] [place] [facility] [address] [id number] [place] [address] 27 Jan, 2015 [facility] [place] [facility] [address] [id number] [place] [address] 27 Jan, 2015 [facility] [place] [facility] [address] [id number] [place] [address] 27 Jan, 2015 [facility] [place] [facility] [address] [id number] [place] [address] 19 Jan, 2015 [facility] [place] [facility] [address] [id number] [place] [address] 19 Jan, 2015 [facility] [place] [facility] [address] [facility] [id number] [place] [address] 16 Jan, 2015 [facility] [place] [facility] [address] [facility] [id number] [place] [address] 16 Jan, 2015 [facility] [place] [facility] [address] [id number] [place] [address] 10 Jan, 2015 [facility] [place] [facility] [address] [facility] [id number] [place] [address] 10 Jan, 2015 [facility] [place] [facility] [address] [id number] [place] [address] 05 Jan, 2015 [facility] [place] [facility] [address] [facility] [id number] [place] [address] 05 Jan, 2015 [facility] [place] [facility] [address] [id number] [place] [address] Dec, [facility] [place] [facility] [address] [id number] [place] [address] Dec, [facility] [place] [facility] [address] [facility] [id number] [place] [address] Dec, [facility] [place] [facility] [address] [id number] [place] [address] Dec, [facility] [place] [facility] [address] [id number] [place] [address] Dec, 2014 [facility] [place] [facility] [address] [id number] [place] [address] Dec, [facility] [place] [facility] [address] [id number] [place] [address] Dec, [facility] [place] [facility] [address] [id number] [place] [address] Dec, [facility] [place] [facility] [address] [id number] [place] [address] Nov, [facility] [place] [facility] [address] [id number] [place] [address] Nov, [facility] [place] [facility] [address] [id number] [place] [address] Nov, [facility] [place] [facility] [address] [id number] [place] [address] Nov, [facility] [place] [facility] [address] [id number] [place] [address] Nov, [facility] [place] [facility] [address] [id number] [address] Nov, [facility] [place] [facility] [address] [id number] [address] Nov, [facility] [place] [facility] [address] [id number] [place] [address] Nov, [facility] [place] [facility] [address] [id number] [place] [address] Oct, [facility] [place] [facility] [address] [id number], [place] [address] Oct, [facility] [place] [facility] [address] [id number], [place] [address] Sep, [facility] [place] [facility] [address] [id number] [place] [address] Sep, [facility] [place] [facility] [address] [id number] [place] [address] Sep, [facility] [place] [facility] [address] [facility] [id number] [place] [address] Sep, [facility] [place] [facility] [address] [id number] [place] [address] Aug, [facility] [place] [facility] [address] [id number] [place] [address] Aug, [facility] [place] [facility] [address] [id number] [place] [address] Aug, [facility] [place] [facility] [address] [facility] [id number] [place] [address] Aug, [facility] [place] [facility] [address] [facility] [id number] [place] [address] Aug, [facility] [place] [facility] [address] [facility] [id number] [place] [address] Aug, [facility] [place] [facility] [address] [facility] [id number] [place] [address] Aug, [facility] [place] [facility] [address] [facility] [id number], [place] [address] Aug, [facility] [place] [facility] [address] [id number], [place] [address] 25 Jul, 2014 [facility] [place] [facility] [address] [id number] [place] [address] 17 Jul, 2014 [facility] [place] [facility] [address] [facility] [id number] [place] [address] 17 Jul, 2014 [facility] [place] [facility] [address] [facility] [id number] [place] [address] 05 Jul, 2013 [facility] [place] [facility] [address] [id number] [place] [address] Jul, [facility] [place] [facility] [address] [id number] [place] [address] Jun, [facility] [place] [facility] [address] [id number] [place] [address] Jun, [facility] [place] [facility] [address] [id number] [place] [address] Jun, [facility] [place] [facility] [address] [id number] [place] [address] Jun, [facility] [place] [facility] [address] [id number] [place] [address] Jun, [facility] [place] [facility] [address] [id number] [place] [address] Jun, [facility] [place] [facility] [address] [id number] [place] [address] May, [facility] [place] [facility] [address] [id number] [place] [address] May, [facility] [place] [facility] [address] [id number] [place] [address] May, [facility] [place] [facility] [address] [id number] [place] [address] May, [facility] [place] [facility] [address] [id number] [place] [address] Apr, [facility] [place] [facility] [address] [id number] [place] [address] Apr, [facility] [place] [facility] [address] [id number] [place] [address] Apr, [facility] [place] [facility] [address] [id number] [place] [address] Apr, [facility] [place] [facility] [address] [id number] [place] [address] Apr, [facility] [place] [facility] [address] [id number] [place] [address] Apr, [facility] [place] [facility] [address] [id number] [place] [address] March, [facility] [place] [facility] [address] [id number] [place] [address] March, [facility] [place] [facility] [address] [id number] [place] [address] March, [facility] [place] [facility] [address] [id number] [place] [address] March, [facility] [place] [facility] [address] [id number] [place] [address] Feb, [facility] [place] [facility] [address] [id number] [place] [address] Feb, [facility] [place] [facility] [address] [id number] [place] [address] Feb, [facility] [place] [facility] [address] [id number] [place] [address] Feb, [facility] [place] [facility] [address] [id number] [place] [address] Feb, [facility] [place] [facility] [address] [id number] [place] [address] Feb, [facility] [place] [facility] [address] [id number] [place] [address] Feb, [facility] [place] [facility] [address] [id number] [place] [address] Feb, [facility] [place] [facility] [address] [id number] [place] [address] Feb, [facility] [place] [facility] [address] [id number] [place] [address] Feb, [facility] [place] [facility] [address] [id number] [place] [address] Feb, [facility] [place] [facility] [address] [id number] [place] [address] Feb, [facility] [place] [facility] [address] [id number] [place] [address] Feb, [facility] [place] [facility] [address] [id number] [place] [address] Feb, [facility] [place] [facility] [address] [id number] [place] [address] Feb, [facility] [place] [facility] [address] [id number] [place] [address] Feb, [facility] [place] [facility] [address] [id number] [place] [address] Jan, [facility] [place] [facility] [address] [id number] [place] [address] Jan, [facility] [place] [facility] [address] [id number] [place] [address] Dec, [facility] [place] [facility] [address] [id number] [place] [address] Dec, [facility] [place] [facility] [address] [facility] [id number] [place] [address] Dec, [facility] [place] [facility] [address] [facility] [id number] [place] [address] Dec, [facility] [place] [facility] [address] [facility] [id number] [place] [address] Dec, [facility] [place] [facility] [address] [id number] [place] [address] Dec, [facility] [place] [facility] [address] [facility] [id number] [place] [address] Dec, [facility] [place] [facility] [address] [facility] [id number] [place] [address] Nov, [facility] [place] [facility] [address] [id number] [place] [address] Nov, [facility] [place] [facility] [address] [id number] [place] [address] Nov, [facility] [place] [facility] [address] [id number] [place] [address] Nov, [facility] [place] [facility] [address] [id number] [place] [address] Oct, [facility] [place] [facility] [address] [id number] [place] [address] Oct, [facility] [place] [facility] [address] [id number] [place] [address] Sep, [facility] [place] [facility] [address] [id number] [place] [address] Sep, [facility] [place] [facility] [address] [id number] [address] Aug, [facility] [place] [facility] [address] [id number] [place] [address] Aug, [facility] [place] [facility] [address] [id number] [address] Aug, [facility] [place] [facility] [address] [id number], [place] [address] Aug, [facility] [place] [facility] [address] [id number], [place] [address] Aug, [facility] [place] [facility] [address] [id number] [place] [address] Aug, [facility] [place] [facility] [address] [id number], [place] [address] Aug, [facility] [place] [facility] [address] [id number] [place] [address] Aug, [facility] [place] [facility] [address] [id number] [place] [address] 07 Aug, 2013 [facility] [address] [id number] [place] [address] Aug, [facility] [place] [facility] [address] [id number] [place] [address] Jun, [facility] [address] [id number] [place] [address] Jun, [facility] [place] [facility] [address] [id number] [place] [address] May, [facility] [place] [facility] [address] [id number] [place] [address] Apr, [facility] [place] [facility] [address] [id number] [place] [address] Apr, [facility] [address] [id number] [place] [address] March, [facility] [place] [facility] [address] [id number] [place] [address] Feb, [facility] [place] [facility] [address] [id number] [place] [address] Jan, [facility] [place] [facility] [address] [id number] [place] [address] Jan, [facility] [place] [facility] [address] [id number] [place] [address] Dec, [facility] [place] [facility] [address] [id number] [place] [address] Dec, [facility] [place] [facility] [address] [id number] [place] [address] Nov, [facility] [place] [facility] [address] [id number] [place] [address] Jul, [facility] [place] [facility] [address] [id number] [place] [address] Jul, [facility] [address] [facility] [id number] [address] Jun, [facility] [address] [facility] [id number] [address] May, [facility] [address] [facility] [id number] [address] May, [facility] [address] [facility] [id number] [address] May, [facility] [address] [facility] [id number] [address] May, [facility] [address] [facility] [id number] [address] May, [facility] [id number] [address] May, [facility] [id number] [address] May, [facility] [id number] [address] Apr, [facility] [id number] [address] Apr, [facility] [address] [id number], [place] [address] Apr, [facility] [address] [id number], [place] [address] Apr, IMMUNIZATIONS No Known Immunizations SOCIAL HISTORY Never Assessed REASON FOR VISIT EMR-[facility] PLAN OF CARE VITAL SIGNS MEDICATIONS Unknown [...]
--- OUTSIDE RECORDS SUMMARY | 2019-07-08 00:18 | XMS REPORT ---
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 Name Role Phone Migration, Doctor Unavailable Unavailable PROBLEMS Type Condition ICD9-CM Code [id number] Code Onset Dates Condition Status SNOMED Code Problem Hypertriglyceridemia E78.1 Active 677114480 Problem Family history of diabetes mellitus Z83.3 Active 613340703 Problem Hyperinsulinemia E16.1 Active 53955629 Problem Insomnia, unspecified type G47.00 Active 418574366 Problem Chronic pain G89.29 Active 64953298 Problem Dysthymia F34.1 Active 15392673 Problem History of MRSA infection Z86.14 Active 866260341 Problem Osteoarthritis M19.90 Active 441745693 Problem Chronic obstructive pulmonary disease, unspecified COPD type J44.9 Active 74068808 Problem Essential hypertension I10 Active 20126893 Problem Primary insomnia F51.01 Active 5418792 ALLERGIES No Information ENCOUNTERS Encounter Location Date Diagnosis [facility] [id number] [place] [address] March, Shortness of breath R06.02 and Bronchitis J40 [facility] [id number] [place] [address] Feb, Chronic pain G89.29 [facility] [id number] [place] [address] Feb, Primary insomnia F51.01 [facility] [id number] [place] [address] Feb, Chest pain, unspecified type R07.9 [facility] [id number] [place] [address] Feb, Insomnia, unspecified type G47.00 [facility] [id number] [place] [address] Feb, [facility] [id number] [place] [address] Feb, Hypertriglyceridemia E78.1 ; Chronic narcotic use F11.90 ; Essential hypertension I10 ; Encounter for immunization Z23 ; Chronic obstructive pulmonary disease, unspecified COPD type J44.9 ; Hyperinsulinemia E16.1 ; Epistaxis R04.0 ; Insomnia, unspecified type G47.00 and Chest pain, unspecified type R07.9 [facility] [facility] [address] [address] Jan, Chronic pain G89.29 and Insomnia, unspecified type G47.00 [place] [address] [address] Dec, Chronic pain G89.29 and Insomnia, unspecified type G47.00 [facility] [facility] [address] [address] Dec, Chronic pain G89.29 and Insomnia, unspecified type G47.00 [place] [facility] [address] [address] Nov, Chronic pain G89.29 and Insomnia, unspecified type G47.00 [facility] [id number] [place] [address] Oct, Chronic pain G89.29 and Insomnia, unspecified type G47.00 [facility] [id number] [place] [address] Oct, [facility] [id number] [place] [address] Oct, Pneumonia of left lower lobe due to infectious organism J18.1 and Chronic obstructive pulmonary disease, unspecified COPD type J44.9 [facility] [id number] [place] [address] Oct, Hypertriglyceridemia E78.1 [facility] [address] [address] Sep, Hypertriglyceridemia E78.1 [facility] [id number] [place] [address] Sep, Chronic pain G89.29 and Insomnia, unspecified type G47.00 [facility] [id number] [place] [address] 2018 Seborrheic keratoses L82.1 and Sebaceous cyst L72.3 [place] [facility] [address] [address] 16 Aug, 2018 Chronic pain G89.29 and Insomnia, unspecified type G47.00 [place] [address] [address] 18 Jul, 2018 Seborrheic keratoses L82.1 [facility] [address] [address] 14 Jul, 2018 Chronic pain G89.29 and Insomnia, unspecified type G47.00 [facility] [id number] [place] [address] Jun, Chronic pain G89.29 and Insomnia, unspecified type G47.00 [facility] [id number] [place] [address] Jun, Seborrheic keratoses L82.1 [facility] [id number] [place] [address] May, Dysthymia F34.1 ; Chronic obstructive pulmonary disease, unspecified COPD type J44.9 ; Chronic pain G89.29 ; Insomnia, unspecified type G47.00 ; BMI 40.0-44.9, adult Z68.41 and Other seborrheic keratosis L82.1 [facility] [id number] [place] [address] May, Chronic pain G89.29 and Insomnia, unspecified type G47.00 [facility] [id number] [place] [address] Apr, Hypertriglyceridemia E78.1 [facility] [id number] [place] [address] Apr, Chronic pain G89.29 and Insomnia, unspecified type G47.00 [facility] [id number] [place] [address] 15 Apr, 2018 Hyperinsulinemia E16.1 ; Hypertriglyceridemia E78.1 and Fatigue, unspecified type R53.83 [facility] [id number] [place] [address] 13 Apr, 2018 Hyperinsulinemia E16.1 ; Chronic pain G89.29 ; Primary insomnia F51.01 ; Chronic obstructive pulmonary disease, unspecified COPD type J44.9 ; Dysthymia F34.1 ; Hypertriglyceridemia E78.1 ; Fatigue, unspecified type R53.83 and Rash R21 [facility] [id number] [place] [address] March, Chronic pain G89.29 and Insomnia, unspecified type G47.00 [facility] [id number] [place] [address] March, Insomnia, unspecified type G47.00 [facility] [id number] [place] [address] Feb, Chronic pain G89.29 [facility] [id number] [place] [address] Feb, Chronic pain G89.29 [facility] [id number] [place] [address] Jan, Chronic pain G89.29 [facility] [id number] [place] [address] Dec, Chronic pain G89.29 [facility] [id number] [place] [address] Nov, Chronic pain G89.29 and Insomnia, unspecified type G47.00 [facility] [address] [address] Oct, Insomnia, unspecified type G47.00 ; Chronic pain G89.29 and Colon cancer screening Z12.11 [facility] [address] [address] Oct, Chronic pain G89.29 [facility] [id number] [place] [address] Sep, Chronic pain G89.29 and Insomnia, unspecified type G47.00 [facility] [id number] [place] [address] Sep, Chronic pain G89.29 [facility] [id number] [place] [address] Sep, [facility] [id number] [place] [address] Aug, Medicare welcome exam Z00.00 ; Encounter for immunization Z23 ; Colon cancer screening Z12.11 and Encounter for screening for lung cancer Z12.2 [facility] [id number] [place] [address] Aug, [facility] [id number] [place] [address] Aug, Chronic pain G89.29 and Insomnia, unspecified type G47.00 [facility] [id number] [place] [address] Aug, Hypertriglyceridemia E78.1 [facility] [id number] [place] [address] Jul, Chronic pain G89.29 and Insomnia, unspecified type G47.00 [facility] [id number] [place] [address] Jun, Hypertriglyceridemia E78.1 [facility] [id number] [place] [address] Jun, Chronic pain G89.29 and Insomnia, unspecified type G47.00 [facility] [address] [address] Jun, [facility] [address] [address] Jun, [facility] [address] [address] May, Hyperinsulinemia E16.1 ; Chronic pain G89.29 ; Insomnia, unspecified type G47.00 and Rash R21 [place] [address] [address] May, Chronic pain G89.29 [facility] [address] [address] May, Hypertriglyceridemia E78.1 [facility] [address] [address] Apr, Chronic pain G89.29 [facility] [id number] [place] [address] Apr, Chronic pain G89.29 ; Hyperinsulinemia E16.1 ; Hypertriglyceridemia E78.1 and Primary insomnia F51.01 [facility] [id number] [place] [address] March, Chronic pain G89.29 [facility] [id number] [place] [address] March, Chronic pain G89.29 [facility] [id number] [place] [address] Feb, [facility] [id number] [place] [address] Feb, Chronic pain G89.29 [facility] [id number] [place] [address] Jan, Chronic pain G89.29 [facility] [id number] [place] [address] Dec, Chronic pain G89.29 [facility] [id number] [place] [address] Dec, [facility] [id number] [place] [address] Nov, Hypertriglyceridemia E78.1 [facility] [address] [address] Nov, [facility] [address] [address] Nov, Chronic pain G89.29 ; Hypertriglyceridemia E78.1 and Chronic obstructive pulmonary disease, unspecified COPD type J44.9 [facility] [address] [address] Nov, Chronic pain G89.29 [facility] [id number] [place] [address] Oct, Chronic pain G89.29 [facility] [id number] [place] [address] Oct, [facility] [id number] [place] [address] Sep, Chronic obstructive pulmonary disease, unspecified COPD type J44.9 and Abscess L02.91 [facility] [id number] [place] [address] Sep, Chronic pain G89.29 [facility] [address] [address] Aug, Chronic pain G89.29 [facility] [id number] [place] [address] Aug, Chronic pain G89.29 [facility] [address] [address] Aug, Cutaneous horn L85.8 and Skin tag L91.8 [facility] [id number] [place] [address] Jul, [facility] [id number] [place] [address] 09 Jul, 2016 Hypertriglyceridemia E78.1 [facility] [address] [address] 07 Jul, 2016 Other chronic pain G89.29 ; Essential hypertension I10 ; Hyperinsulinemia E16.1 ; Hyperlipidemia, unspecified hyperlipidemia type E78.5 and Cutaneous horn L85.8 [facility] [id number] [place] [address] Jun, Chronic pain G89.29 [facility] [id number] [place] [address] May, Chronic pain G89.29 [facility] [id number] [place] [address] May, [facility] [address] [address] May, Skin infection L08.9 [facility] [id number] [place] [address] Apr, Chronic pain G89.29 [facility] [id number] [place] [address] Apr, [facility] [id number] [place] [address] Apr, Chronic pain G89.29 [facility] [id number] [place] [address] March, [facility] [id number] [place] [address] Feb, Chronic pain G89.29 ; Hyperinsulinemia E16.1 and Hypertriglyceridemia E78.1 [facility] [id number] [place] [address] Feb, [facility] [id number] [place] [address] Jan, [facility] [id number] [place] [address] Dec, [facility] [address] [address] Nov, [facility] [id number] [place] [address] Oct, [facility] [address] [address] Oct, Hyperinsulinemia E16.1 [facility] [id number] [place] [address] Oct, Other chronic pain G89.29 ; Chronic obstructive pulmonary disease, unspecified COPD type J44.9 ; Insomnia, unspecified type G47.00 ; Hyperinsulinemia E16.1 and Essential hypertension I10 [facility] [id number] [place] [address] Sep, [facility] [id number] [place] [address] Aug, [facility] [id number] [place] [address] 30 Jul, 2015 [facility] [id number] [place] [address] Jul, [facility] [id number] [place] [address] Jul, Overweight 278.02 and Hyperinsulinemia 251.1 [facility] [id number] [place] [address] Jul, [facility] [id number] [place] [address] Jun, Skin tags, multiple acquired 701.9 [facility] [id number] [place] [address] Jun, Other chronic pain 338.29 ; Erectile dysfunction 607.84 ; Hyperinsulinemia 251.1 and Hypertension 401.9 [facility] [id number] [place] [address] Jun, [facility] [address] [address] Jun, [facility] [id number] [place] [address] Jun, [facility] [address] [address] May, Pure hyperglyceridemia 272.1 [facility] [id number] [place] [address] May, Pure hyperglyceridemia 272.1 [facility] [id number] [place] [address] May, [facility] [id number] [place] [address] May, Overgrown toenails 703.8 ; Seborrheic keratosis 702.19 ; Skin tag 701.9 ; Warts, genital 078.11 ; Cramps, extremity 729.82 ; Increased appetite 783.6 and Heat rash 705.1 [facility] [id number] [place] [address] May, [facility] [id number] [place] [address] Apr, [facility] [id number] [place] [address] Apr, [facility] [id number] [place] [address] March, [facility] [place] [facility] [address] [id number] [place] [address] 14 Feb, 2015 [facility] [place] [facility] [address] [id number] [place] [address] 13 Feb, 2015 [facility] [place] [facility] [address] [id number] [place] [address] 27 Jan, 2015 [facility] [place] [facility] [address] [id number] [place] [address] 27 Jan, 2015 [facility] [place] [facility] [address] [id number] [place] [address] 27 Jan, 2015 [facility] [place] [facility] [address] [id number] [place] [address] 27 Jan, 2015 [facility] [place] [facility] [address] [id number] [place] [address] 19 Jan, 2015 [facility] [place] [facility] [address] [id number] [place] [address] 19 Jan, 2015 [facility] [place] [facility] [address] [id number] [place] [address] 16 Jan, 2015 [facility] [place] [facility] [address] [id number] [place] [address] 16 Jan, 2015 [facility] [place] [facility] [address] [id number] [place] [address] 10 Jan, 2015 [facility] [place] [facility] [address] [id number] [place] [address] 10 Jan, 2015 [facility] [place] [facility] [address] [id number] [place] [address] 05 Jan, 2015 [facility] [place] [facility] [address] [id number] [place] [address] 05 Jan, 2015 [facility] [place] [facility] [address] [id number] [place] [address] 19 Dec, 2014 [facility] [place] [facility] [address] [id number] [place] [address] Dec, 2014 [facility] [place] [facility] [address] [id number] [place] [address] Dec, 2014 [facility] [place] [facility] [address] [id number] [place] [address] Dec, 2014 [facility] [place] [facility] [address] [facility] [id number] [place] [address] Dec, 2014 [facility] [place] [facility] [address] [id number] [place] [address] Dec, 2014 [facility] [place] [facility] [address] [id number] [place] [address] Dec, 2014 [facility] [place] [facility] [address] [facility] [id number] [place] [address] Dec, [facility] [place] [facility] [address] [facility] [id number] [address] Nov, [facility] [place] [facility] [address] [facility] [id number] [place] [address] Nov, [facility] [place] [facility] [address] [facility] [id number] [place] [address] Nov, [facility] [place] [facility] [address] [facility] [id number] [place] [address] Nov, [facility] [place] [facility] [address] [facility] [id number] [place] [address] Nov, [facility] [place] [facility] [address] [facility] [id number] [place] [address] Nov, [facility] [place] [facility] [address] [facility] [id number] [address] Nov, [facility] [place] [facility] [address] [facility] [id number] [place] [address] Nov, [facility] [place] [facility] [address] [facility] [id number] [address] Oct, [facility] [place] [facility] [address] [id number] [place] [address] Oct, [facility] [place] [facility] [address] [id number] [place] [address] Sep, [facility] [place] [facility] [address] [id number] [place] [address] Sep, [facility] [place] [facility] [address] [id number] [place] [address] Sep, [facility] [place] [facility] [address] [id number] [place] [address] Sep, [facility] [place] [facility] [address] [id number] [place] [address] Aug, [facility] [place] [facility] [address] [id number] [place] [address] Aug, [facility] [place] [facility] [address] [id number] [place] [address] Aug, [facility] [place] [facility] [address] [id number] [place] [address] Aug, [facility] [place] [facility] [address] [id number] [place] [address] Aug, [facility] [place] [facility] [address] [id number] [place] [address] Aug, [facility] [place] [facility] [address] [id number] [place] [address] Aug, [facility] [place] [facility] [address] [id number] [place] [address] Aug, [facility] [place] [facility] [address] [id number] [place] [address] Jul, [facility] [place] [facility] [address] [id number] [place] [address] Jul, [facility] [place] [facility] [address] [id number] [place] [address] Jul, [facility] [place] [facility] [address] [id number] [place] [address] Jul, [facility] [place] [facility] [address] [id number] [place] [address] Jul, [facility] [place] [facility] [address] [id number] [place] [address] Jun, [facility] [place] [facility] [address] [id number] [place] [address] Jun, [facility] [place] [facility] [address] [id number] [place] [address] Jun, [facility] [place] [facility] [address] [id number] [place] [address] Jun, [facility] [place] [facility] [address] [id number] [place] [address] Jun, [facility] [place] [facility] [address] [id number] [place] [address] Jun, [facility] [place] [facility] [address] [id number] [place] [address] May, [facility] [place] [facility] [address] [id number] [place] [address] May, [facility] [place] [facility] [address] [id number] [place] [address] May, [facility] [place] [facility] [address] [id number] [place] [address] May, [facility] [place] [facility] [address] [id number] [place] [address] Apr, [facility] [place] [facility] [address] [id number] [place] [address] Apr, [facility] [place] [facility] [address] [id number] [place] [address] Apr, [facility] [place] [facility] [address] [id number] [place] [address] Apr, [facility] [place] [facility] [address] [id number] [place] [address] Apr, [facility] [place] [facility] [address] [id number] [place] [address] Apr, [facility] [place] [facility] [address] [id number] [place] [address] March, [facility] [place] [facility] [address] [id number] [place] [address] March, [facility] [place] [facility] [address] [id number] [place] [address] March, [facility] [place] [facility] [address] [id number] [place] [address] March, [facility] [place] [facility] [address] [id number] [place] [address] Feb, [facility] [place] [facility] [address] [id number] [place] [address] Feb, [facility] [place] [facility] [address] [id number] [place] [address] Feb, [facility] [place] [facility] [address] [id number] [place] [address] Feb, [facility] [place] [facility] [address] [id number] [place] [address] Feb, [facility] [place] [facility] [address] [id number] [place] [address] Feb, [facility] [place] [facility] [address] [id number] [place] [address] Feb, [facility] [place] [facility] [address] [id number] [place] [address] Feb, [facility] [place] [facility] [address] [id number] [place] [address] Feb, [facility] [place] [facility] [address] [id number] [place] [address] Feb, [facility] [place] [facility] [address] [id number] [place] [address] Feb, [facility] [place] [facility] [address] [id number] [place] [address] Feb, [facility] [place] [facility] [address] [id number] [place] [address] Feb, [facility] [place] [facility] [address] [id number] [place] [address] Feb, [facility] [place] [facility] [address] [id number] [place] [address] Feb, [facility] [place] [facility] [address] [id number] [place] [address] Feb, [facility] [place] [facility] [address] [id number] [place] [address] Jan, [facility] [place] [facility] [address] [id number] [place] [address] Jan, [facility] [place] [facility] [address] [id number] [place] [address] Dec, [facility] [place] [facility] [address] [id number] [place] [address] Dec, [facility] [place] [facility] [address] [id number] [place] [address] Dec, [facility] [place] [facility] [address] [id number] [place] [address] Dec, [facility] [place] [facility] [address] [id number] [place] [address] Dec, [facility] [place] [facility] [address] [id number] [place] [address] Dec, [facility] [place] [facility] [address] [id number] [place] [address] Dec, [facility] [place] [facility] [address] [id number] [place] [address] Nov, [facility] [place] [facility] [address] [id number] [place] [address] Nov, [facility] [place] [facility] [address] [id number] [place] [address] Nov, [facility] [place] [facility] [address] [id number] [place] [address] Nov, [facility] [place] [facility] [address] [id number] [place] [address] Oct, [facility] [place] [facility] [address] [id number] [place] [address] Oct, [facility] [place] [facility] [address] [id number] [place] [address] Sep, [facility] [place] [facility] [address] [id number] [place] [address] Sep, [facility] [place] [facility] [address] [id number] [place] [address] Aug, [facility] [place] [facility] [address] [id number] [place] [address] Aug, [facility] [place] [facility] [address] [id number] [place] [address] Aug, [facility] [place] [facility] [address] [id number] [place] [address] Aug, [facility] [place] [facility] [address] [id number] [place] [address] Aug, [facility] [place] [facility] [address] [id number] [place] [address] Aug, [facility] [place] [facility] [address] [id number] [place] [address] Aug, [facility] [place] [facility] [address] [id number] [place] [address] Aug, [facility] [address] [id number] [place] [address] Aug, [facility] [place] [facility] [address] [id number] [place] [address] Aug, [facility] [place] [facility] [address] [id number] [place] [address] Jun, [facility] [address] [id number] [place] [address] Jun, [facility] [place] [facility] [address] [id number] [place] [address] May, [facility] [address] [id number] [place] [address] Apr, [facility] [place] [facility] [address] [id number] [place] [address] Apr, [facility] [address] [id number] [place] [address] March, [facility] [place] [facility] [address] [id number] [place] [address] Feb, [facility] [place] [facility] [address] [id number] [place] [address] Jan, [facility] [place] [facility] [address] [id number] [place] [address] Jan, [facility] [place] [facility] [address] [id number] [place] [address] Dec, [facility] [place] [facility] [address] [id number] [place] [address] Dec, [facility] [place] [facility] [address] [id number] [place] [address] Nov, [facility] [place] [facility] [address] [id number] [address] Jul, [facility] [id number] [address] Jul, [facility] [id number] [address] Jun, [facility] [id number] [address] May, [facility] [id number] [address] May, [facility] [id number] [address] May, [facility] [id number] [address] May, [facility] [id number] [address] May, [facility] [id number] [address] May, [facility] [id number] [address] May, [facility] [id number] [address] Apr, [facility] [id number] [address] Apr, [facility] [id number] [address] Apr, [facility] [id number] [address] Apr, IMMUNIZATIONS No Known Immunizations SOCIAL HISTORY Never Assessed REASON FOR VISIT [facility] PLAN OF CARE VITAL SIGNS MEDICATIONS Unknown [...]
--- OUTSIDE RECORDS SUMMARY | 2019-07-08 00:19 | XMS REPORT ---
Author Author Migration, Doctor Organization [facility] Address Unknown Phone Unavailable Care Team Providers Care Whizzer Name Role Phone Migration, Doctor Unavailable Unavailable PROBLEMS Type Condition ICD9-CM Code CXC54-HF Code Onset Dates Condition Status SNOMED Code Problem Hypertriglyceridemia E78.1 Active 552292680 Problem Family history of diabetes mellitus Z83.3 Active 613195943 Problem Hyperinsulinemia E16.1 Active 05662557 Problem Insomnia, unspecified type G47.00 Active 513483652 Problem Chronic pain G89.29 Active 89147699 Problem Dysthymia F34.1 Active 07659359 Problem History of MRSA infection Z86.14 Active 149606367 Problem Osteoarthritis M19.90 Active 899036992 Problem Chronic obstructive pulmonary disease, unspecified COPD type J44.9 Active 38363417 Problem Essential hypertension I10 Active 06691090 Problem Primary insomnia F51.01 Active 7435187 ALLERGIES No Information ENCOUNTERS Encounter Location Date Diagnosis [place] [address] [address] Feb, Insomnia, unspecified type G47.00 [place] [address] [place] [id number] [place] [address] Feb, [place] [address] [address] Feb, Hypertriglyceridemia E78.1 ; Chronic narcotic use F11.90 ; Essential hypertension I10 ; Encounter for immunization Z23 ; Chronic obstructive pulmonary disease, unspecified COPD type J44.9 ; Hyperinsulinemia E16.1 ; Epistaxis R04.0 ; Insomnia, unspecified type G47.00 and Chest pain, unspecified type R07.9 [facility] [address] [place] [id number] [place] [address] Jan, Chronic pain G89.29 and Insomnia, unspecified type G47.00 [place] [address] [place] [address] Dec, Chronic pain G89.29 and Insomnia, unspecified type G47.00 [place] [address] [place] [id number] [place], [place] [address] Dec, Chronic pain G89.29 and Insomnia, unspecified type G47.00 [place] [address] [address] Nov, Chronic pain G89.29 and Insomnia, unspecified type G47.00 [place] [address] [place] [id number] [place] [address] Oct, Chronic pain G89.29 and Insomnia, unspecified type G47.00 [place] [address] [place] [id number] [place] [address] Oct, [place] [address] [address] Oct, Pneumonia of left lower lobe due to infectious organism J18.1 and Chronic obstructive pulmonary disease, unspecified COPD type J44.9 [place] [address] [address] Oct, Hypertriglyceridemia E78.1 [place] [address] [place] [id number] [place] [address] Sep, Hypertriglyceridemia E78.1 [place] [address] [place] [id number] [place] [address] Sep, Chronic pain G89.29 and Insomnia, unspecified type G47.00 [place] [address] [place] [id number] [place] [address] 2018 Seborrheic keratoses L82.1 and Sebaceous cyst L72.3 [place] [address] [place] [id number] [place] [address] 16 Aug, 2018 Chronic pain G89.29 and Insomnia, unspecified type G47.00 [place] [address] [place] [id number] [place] [address] 18 Jul, 2018 Seborrheic keratoses L82.1 [place] [address] [address] Jul, Chronic pain G89.29 and Insomnia, unspecified type G47.00 [place] [address] [place] [id number] [place] [address] Jun, Chronic pain G89.29 and Insomnia, unspecified type G47.00 [place] [address] [place] [id number] [place] [address] Jun, Seborrheic keratoses L82.1 [place] [address] [place] [id number] [place] [address] May, Dysthymia F34.1 ; Chronic obstructive pulmonary disease, unspecified COPD type J44.9 ; Chronic pain G89.29 ; Insomnia, unspecified type G47.00 ; BMI 40.0-44.9, adult Z68.41 and Other seborrheic keratosis L82.1 [place] [address] [address] May, Chronic pain G89.29 and Insomnia, unspecified type G47.00 [place] [address] [place] [id number] [place] [address] Apr, Hypertriglyceridemia E78.1 [place] [address] [place] [id number] [place] [address] Apr, Chronic pain G89.29 and Insomnia, unspecified type G47.00 [place] [address] [place] [id number] [place] [address] 15 Apr, 2018 Hyperinsulinemia E16.1 ; Hypertriglyceridemia E78.1 and Fatigue, unspecified type R53.83 [place] [address] [place] [id number] [place] [address] Apr, Hyperinsulinemia E16.1 ; Chronic pain G89.29 ; Primary insomnia F51.01 ; Chronic obstructive pulmonary disease, unspecified COPD type J44.9 ; Dysthymia F34.1 ; Hypertriglyceridemia E78.1 ; Fatigue, unspecified type R53.83 and Rash R21 [place] [address] [place] [id number] [place] [address] March, Chronic pain G89.29 and Insomnia, unspecified type G47.00 [place] [address] [address] March, Insomnia, unspecified type G47.00 [place] [address] [address] Feb, Chronic pain G89.29 [place] [address] [address] Feb, Chronic pain G89.29 [place] [address] [address] Jan, Chronic pain G89.29 [place] [address] [address] Dec, Chronic pain G89.29 [place] [address] [address] Nov, Chronic pain G89.29 and Insomnia, unspecified type G47.00 [place] [address] [place] [id number] [place] [address] Oct, Insomnia, unspecified type G47.00 ; Chronic pain G89.29 and Colon cancer screening Z12.11 [place] [address] [address] Oct, Chronic pain G89.29 [place] [address] [place] [id number] [place] [address] Sep, Chronic pain G89.29 and Insomnia, unspecified type G47.00 [place] [address] [address] Sep, Chronic pain G89.29 [place] [address] [place] [id number] [place] [address] Sep, [place] [address] [place] [id number] [place] [address] Aug, Medicare welcome exam Z00.00 ; Encounter for immunization Z23 ; Colon cancer screening Z12.11 and Encounter for screening for lung cancer Z12.2 [place] [address] [place] [id number] [place] [address] Aug, [place] [address] [place] [id number] [place] [address] Aug, Chronic pain G89.29 and Insomnia, unspecified type G47.00 [place] [address] [place] [id number] [place] [address] Aug, Hypertriglyceridemia E78.1 [place] [address] [place] [id number] [place] [address] Jul, Chronic pain G89.29 and Insomnia, unspecified type G47.00 [place] [address] [place] [id number] [place] [address] Jun, Hypertriglyceridemia E78.1 [place] [address] [place] [id number] [place] [address] Jun, Chronic pain G89.29 and Insomnia, unspecified type G47.00 [place] [address] [place] [id number] [place] [address] Jun, [place] [address] [place] [id number] [place] [address] Jun, [place] [address] [place] [id number] [place] [address] May, Hyperinsulinemia E16.1 ; Chronic pain G89.29 ; Insomnia, unspecified type G47.00 and Rash R21 [place] [address] [place] [id number] [place] [address] May, Chronic pain G89.29 [facility] [address] [place] [id number] [place] [address] May, Hypertriglyceridemia E78.1 [facility] [address] [place] [id number] [place] [address] Apr, Chronic pain G89.29 [facility] [address] [place] [id number] [place] [address] Apr, Chronic pain G89.29 ; Hyperinsulinemia E16.1 ; Hypertriglyceridemia E78.1 and Primary insomnia F51.01 [facility] [address] [place] [id number] [place] [address] March, Chronic pain G89.29 [facility] [address] [place] [id number] [place] [address] March, Chronic pain G89.29 [facility] [address] [place] [id number] [place] [address] Feb, [facility] [address] [place] [id number] [place] [address] Feb, Chronic pain G89.29 [facility] [address] [place] [address] Jan, Chronic pain G89.29 [facility] [address] [place] [id number] [place] [address] Dec, Chronic pain G89.29 [facility] [address] [place] [address] Dec, [facility] [address] [place] [id number] [place] [address] Nov, Hypertriglyceridemia E78.1 [facility] [address] [place] [address] Nov, [facility] [address] [place] [id number] [place] [address] Nov, Chronic pain G89.29 ; Hypertriglyceridemia E78.1 and Chronic obstructive pulmonary disease, unspecified COPD type J44.9 [place] [address] [place] [id number] [place] [address] Nov, Chronic pain G89.29 [place] [address] [address] Oct, Chronic pain G89.29 [place] [address] [address] Oct, [place] [address] [address] Sep, Chronic obstructive pulmonary disease, unspecified COPD type J44.9 and Abscess L02.91 [place] [address] [address] Sep, Chronic pain G89.29 [place] [address] [address] Aug, Chronic pain G89.29 [place] [address] [address] Aug, Chronic pain G89.29 [place] [address] [address] Aug, Cutaneous horn L85.8 and Skin tag L91.8 [place] [address] [place] [id number] [place] [address] Jul, [place] [address] [address] 09 Jul, 2016 Hypertriglyceridemia E78.1 [place] [address] [place] [id number] [place] [address] 07 Jul, 2016 Other chronic pain G89.29 ; Essential hypertension I10 ; Hyperinsulinemia E16.1 ; Hyperlipidemia, unspecified hyperlipidemia type E78.5 and Cutaneous horn L85.8 [facility] [address] [address] Jun, Chronic pain G89.29 [facility] [address] [place] [id number] [place] [address] May, Chronic pain G89.29 [facility] [address] [place] [id number] [place] [address] May, [facility] [address] [place] [id number] [place] [address] May, Skin infection L08.9 [facility] [address] [place] [id number] [place] [address] Apr, Chronic pain G89.29 [facility] [address] [place] [id number] [place] [address] Apr, [facility] [address] [place] [id number] [place] [address] Apr, Chronic pain G89.29 [facility] [address] [place] [id number] [place] [address] March, [facility] [address] [place] [id number] [place] [address] Feb, Chronic pain G89.29 ; Hyperinsulinemia E16.[address] [facility] [address] [place] [address] Feb, [facility] [address] [place] [address] Jan, [facility] [address] [place] [id number] [place] [address] Dec, [facility] [address] [place] [address] Nov, [facility] [address] [place] [address] Oct, [facility] [address] [place] [id number] [place] [address] Oct, Hyperinsulinemia E16.1 [facility] [address] [address] Oct, Other chronic pain G89.29 ; Chronic obstructive pulmonary disease, unspecified COPD type J44.9 ; Insomnia, unspecified type G47.00 ; Hyperinsulinemia E16.1 and Essential hypertension I10 [facility] [address] [address] Sep, [facility] [address] [address] Aug, [facility] [address] [address] Jul, [facility] [address] [address] Jul, [facility] [address] [address] Jul, Overweight 278.[address] [facility] [address] [address] Jul, [facility] [address] [address] Jun, Skin tags, multiple acquired 701.9 [facility] [address] [address] Jun, Other chronic pain 338.29 ; Erectile dysfunction 607.84 ; Hyperinsulinemia 251.[address] [facility] [address] [address] Jun, [facility] [address] [address] Jun, [facility] [address] [address] Jun, [facility] [address] [place] [id number] [address] May, Pure hyperglyceridemia 272.1 [facility] [address] [place] [id number] [place] [address] May, Pure hyperglyceridemia 272.1 [facility] [address] [place] [id number] [place] [address] May, [facility] [address] [place] [id number] [place] [address] May, Overgrown toenails 703.8 ; Seborrheic keratosis 702.19 ; Skin tag 701.9 ; Warts, genital 078.11 ; Cramps, extremity 729.82 ; Increased appetite 783.6 [address] Heat rash 705.1 [facility] [address] [place] [id number] [place] [address] May, [facility] [address] [place] [id number] [place] [address] Apr, [facility] [address] [place] [id number] [place] [address] Apr, [facility] [address] [place] [id number] [place] [address] March, [facility] [address] [place] [address] Feb, [facility] [address] [place] [id number] [place] [address] Feb, [facility] [address] [place] [id number] [place] [address] Jan, [facility] [address] [place] [id number] [place] [address] Jan, [facility] [address] [address] Jan, [facility] [address] [place] [id number] [place] [address] Jan, 2014 [facility] [place] [facility] [address] [id number] [place] [address] Jan, 2014 [facility] [place] [facility] [address] [id number] [place] [address] Jan, 2014 [facility] [place] [facility] [address] [id number] [place] [address] 16 Jan, 2014 [facility] [place] [facility] [address] [id number] [place] [address] 16 Jan, 2014 [facility] [place] [facility] [address] [id number] [place] [address] Jan, 2014 [facility] [place] [facility] [address] [facility] [id number] [place] [address] Jan, 2014 [facility] [place] [facility] [address] [id number] [place] [address] Jan, 2014 [facility] [place] [facility] [address] [id number] [place] [address] 05 Jan, 2015 [facility] [place] [facility] [address] [id number] [place] [address] Dec, 2014 [facility] [place] [facility] [address] [facility] [id number] [place] [address] Dec, 2014 [facility] [place] [facility] [address] [id number] [place] [address] Dec, 2014 [facility] [place] [facility] [address] [id number] [place] [address] Dec, 2014 [facility] [place] [facility] [address] [id number] [place] [address] Dec, 2014 [facility] [place] [facility] [address] [id number] [place] [address] Dec, 2014 [facility] [place] [facility] [address] [id number] [place] [address] Dec, [facility] [place] [facility] [address] [id number] [place] [address] Dec, [facility] [place] [facility] [address] [id number] [place] [address] Nov, [facility] [place] [facility] [address] [id number] [place] [address] Nov, [facility] [place] [facility] [address] [id number] [place] [address] Nov, [facility] [place] [facility] [address] [id number] [place] [address] Nov, [facility] [place] [facility] [address] [id number] [place] [address] Nov, [facility] [place] [facility] [address] [id number] [place] [address] Nov, [facility] [place] [facility] [address] [id number] [place] [address] Nov, [facility] [place] [facility] [address] [id number], [place] [address] Nov, [facility] [place] [facility] [address] [id number] [place] [address] Oct, [facility] [place] [facility] [address] [id number], [place] [address] Oct, [facility] [place] [facility] [address] [id number], [place] [address] Sep, [facility] [place] [facility] [address] [id number], [place] [address] Sep, [facility] [place] [facility] [address] [id number], [place] [address] Sep, [facility] [place] [facility] [address] [id number] [place] [address] Sep, [facility] [place] [facility] [address] [id number] [place] [address] Aug, [facility] [place] [facility] [address] [id number] [place] [address] Aug, [facility] [place] [facility] [address] [id number] [place] [address] Aug, [facility] [place] [facility] [address] [id number] [place] [address] Aug, [facility] [place] [facility] [address] [id number] [place] [address] Aug, [facility] [place] [facility] [address] [id number] [place] [address] Aug, [facility] [place] [facility] [address] [id number] [place] [address] Aug, [facility] [place] [facility] [address] [id number] [place] [address] Aug, [facility] [place] [facility] [address] [id number] [place] [address] Jul, [facility] [place] [facility] [address] [id number] [place] [address] Jul, [facility] [place] [facility] [address] [id number] [place] [address] Jul, [facility] [place] [facility] [address] [id number] [place] [address] Jul, [facility] [place] [facility] [address] [id number] [place] [address] Jul, [facility] [place] [facility] [address] [id number] [place] [address] Jun, [facility] [place] [facility] [address] [id number] [place] [address] Jun, [facility] [place] [facility] [address] [id number] [place] [address] Jun, [facility] [place] [facility] [address] [id number] [place] [address] Jun, [facility] [place] [facility] [address] [id number] [place] [address] Jun, [facility] [place] [facility] [address] [id number] [place] [address] Jun, [facility] [place] [facility] [address] [id number] [place] [address] May, [facility] [place] [facility] [address] [id number] [place] [address] May, [facility] [place] [facility] [address] [id number] [place] [address] May, [facility] [place] [facility] [address] [id number] [place] [address] May, [facility] [place] [facility] [address] [id number] [place] [address] Apr, [facility] [place] [facility] [address] [id number] [place] [address] Apr, [facility] [place] [facility] [address] [id number] [place] [address] Apr, [facility] [place] [facility] [address] [id number] [place] [address] Apr, [facility] [place] [facility] [address] [id number] [place] [address] Apr, [facility] [place] [facility] [address] [id number] [place] [address] Apr, [facility] [place] [facility] [address] [id number] [place] [address] March, [facility] [place] [facility] [address] [id number] [place] [address] March, [facility] [place] [facility] [address] [id number] [place] [address] March, [facility] [address] [id number] [place] [address] March, [facility] [place] [facility] [address] [id number] [place] [address] Feb, [facility] [place] [facility] [address] [id number] [place] [address] Feb, [facility] [place] [facility] [address] [id number] [place] [address] Feb, [facility] [place] [facility] [address] [id number] [place] [address] Feb, [facility] [place] [facility] [address] [id number] [place] [address] Feb, [facility] [place] [facility] [address] [id number] [place] [address] Feb, [facility] [place] [facility] [address] [id number] [place] [address] Feb, [facility] [place] [facility] [address] [id number] [place] [address] Feb, [facility] [place] [facility] [address] [id number] [place] [address] Feb, [facility] [place] [facility] [address] [id number] [place] [address] Feb, [facility] [place] [facility] [address] [id number] [place] [address] Feb, [facility] [place] [facility] [address] [id number] [place] [address] Feb, [facility] [place] [facility] [address] [id number] [place] [address] Feb, [facility] [place] [facility] [address] [id number] [place] [address] Feb, [facility] [place] [facility] [address] [id number] [place] [address] Feb, [facility] [place] [facility] [address] [id number] [place] [address] Feb, [facility] [place] [facility] [address] [id number] [place] [address] Jan, [facility] [place] [facility] [address] [id number] [place] [address] Jan, [facility] [place] [facility] [address] [id number] [place] [address] Dec, [facility] [place] [facility] [address] [id number] [place] [address] Dec, [facility] [place] [facility] [address] [facility] [id number] [place] [address] Dec, [facility] [place] [facility] [address] [id number] [place] [address] Dec, [facility] [place] [facility] [address] [id number] [place] [address] Dec, [facility] [place] [facility] [address] [id number] [place] [address] Dec, [facility] [place] [facility] [address] [facility] [id number] [place] [address] Dec, [facility] [place] [facility] [address] [id number], [place] [address] Nov, [facility] [place] [facility] [address] [id number] [place] [address] Nov, [facility] [place] [facility] [address] [id number] [place] [address] Nov, [facility] [place] [facility] [address] [facility] [id number] [place] [address] Nov, [facility] [place] [facility] [address] [id number], [place] [address] Oct, [facility] [place] [facility] [address] [id number] [place] [address] Oct, [facility] [place] [facility] [address] [id number], [place] [address] Sep, [facility] [place] [facility] [address] [id number] [place] [address] Sep, [facility] [place] [facility] [address] [id number] [place] [address] Aug, [facility] [place] [facility] [address] [id number] [place] [address] Aug, [facility] [place] [facility] [address] [id number] [place] [address] Aug, [facility] [place] [facility] [address] [id number], [place] [address] Aug, [facility] [place] [facility] [address] [id number] [place] [address] Aug, [facility] [place] [facility] [address] [id number] [place] [address] Aug, [facility] [facility] [address] [id number], [place] [address] Aug, [facility] [place] [facility] [address] [id number], [place] [address] Aug, [facility] [place] [facility] [address] [id number], [place] [address] Aug, [facility] [place] [facility] [address] [id number], [place] [address] Aug, [facility] [place] [facility] [address] [id number], [place] [address] Jun, [facility] [place] [facility] [address] [id number], [place] [address] Jun, [facility] [place] [facility] [address] [id number] [place] [address] May, [facility] [place] [facility] [address] [id number] [place] [address] Apr, [facility] [place] [facility] [address] [id number] [place] [address] Apr, [facility] [place] [facility] [address] [id number] [place] [address] March, [facility] [place] [facility] [address] [id number] [place] [address] Feb, [facility] [place] [facility] [address] [id number] [place] [address] Jan, [facility] [place] [facility] [address] [id number] [place] [address] Jan, [facility] [place] [facility] [address] [id number] [place] [address] Dec, [facility] [place] [facility] [address] [id number] [place] [address] Dec, [facility] [place] [facility] [address] [id number] [place] [address] Nov, [facility] [place] [facility] [address] [id number] [place] [address] Jul, [facility] [place] [facility] [address] [id number] [place] [address] Jul, [facility] [place] [facility] [address] [id number] [place] [address] Jun, [facility] [place] [facility] [address] [id number] [place] [address] May, [facility] [place] [facility] [address] [id number] [place] [address] May, [facility] [place] [facility] [address] [id number] [place] [address] May, [facility] [address] [id number], [place] [address] 16 May, [address] [facility] [address] [id number], [place] [address] May, [facility] [address] [id number], [place] [address] May, [facility] [id number], [place] [address] May, [facility] [id number], [place] [address] Apr, [facility] [id number] [address] Apr, [facility] [address] [id number], [place] [address] Apr, [facility] [address] [id number], [place] [address] Apr, IMMUNIZATIONS No Known Immunizations SOCIAL HISTORY Never Assessed REASON [place] [place] V[place] SIGNS MEDICATIONS Unknown [...]
--- OUTSIDE RECORDS SUMMARY | 2019-07-08 00:19 | XMS REPORT ---
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 Name Role Phone Migration, Doctor Unavailable Unavailable PROBLEMS Type Condition ICD9-CM Code WEM03-YO Code Onset Dates Condition Status SNOMED Code Problem Hypertriglyceridemia E78.1 Active 483672402 Problem Family history of diabetes mellitus Z83.3 Active 329888545 Problem Hyperinsulinemia E16.1 Active 90376867 Problem Insomnia, unspecified type G47.00 Active 909553143 Problem Chronic pain G89.29 Active 68124112 Problem Dysthymia F34.1 Active 35308213 Problem History of MRSA infection Z86.14 Active 246317230 Problem Osteoarthritis M19.90 Active 357313773 Problem Chronic obstructive pulmonary disease, unspecified COPD type J44.9 Active 26743898 Problem Essential hypertension I10 Active 89749753 Problem Primary insomnia F51.01 Active 2651739 ALLERGIES No Information ENCOUNTERS Encounter Location Date Diagnosis [place] [address] [address] Feb, [place] [address] [place] [id number] [place] [address] Feb, Chest pain, unspecified type R07.9 [place] [address] [place] [id number] [place] [address] Feb, Insomnia, unspecified type G47.00 [facility] [address] [place] [id number] [place] [address] Feb, [place] [address] [address] Feb, Hypertriglyceridemia E78.1 ; Chronic narcotic use F11.90 ; Essential hypertension I10 ; Encounter for immunization Z23 ; Chronic obstructive pulmonary disease, unspecified COPD type J44.9 ; Hyperinsulinemia E16.1 ; Epistaxis R04.0 ; Insomnia, unspecified type G47.00 and Chest pain, unspecified type R07.9 [facility] [address] [place] [id number] [place] [address] Jan, Chronic pain G89.29 and Insomnia, unspecified type G47.00 [facility] [address] [place] [id number] [place] [address] Dec, Chronic pain G89.29 and Insomnia, unspecified type G47.00 [place] [address] [place] [id number] [place] [address] Dec, Chronic pain G89.29 and Insomnia, unspecified type G47.00 [place] [address] [place] [id number] [place] [address] Nov, Chronic pain G89.29 and Insomnia, unspecified type G47.00 [place] [address] [place] [id number] [place] [address] Oct, Chronic pain G89.29 and Insomnia, unspecified type G47.00 [place] [address] [place] [id number] [place] [address] Oct, [place] [address] [place] [id number] [place] [address] Oct, Pneumonia of left lower lobe due to infectious organism J18.1 and Chronic obstructive pulmonary disease, unspecified COPD type J44.9 [place] [address] [place] [id number] [place] [address] Oct, Hypertriglyceridemia E78.1 [place] [address] [place] [id number] [place] [address] Sep, Hypertriglyceridemia E78.1 [place] [address] [address] Sep, Chronic pain G89.29 and Insomnia, unspecified type G47.00 [place] [address] [place] [id number] [place] [address] Aug, Seborrheic keratoses L82.1 and Sebaceous cyst L72.3 [place] [address] [place] [id number] [place] [address] Aug, Chronic pain G89.29 and Insomnia, unspecified type G47.00 [place] [address] [place] [id number] [place] [address] 18 Jul, 2018 Seborrheic keratoses L82.1 [place] [address] [address] 14 Jul, 2018 Chronic pain G89.29 and Insomnia, unspecified type G47.00 [place] [address] [address] Jun, Chronic pain G89.29 and Insomnia, unspecified type G47.00 [place] [address] [address] Jun, Seborrheic keratoses L82.1 [place] [address] [place] [id number] [place] [address] May, Dysthymia F34.1 ; Chronic obstructive pulmonary disease, unspecified COPD type J44.9 ; Chronic pain G89.29 ; Insomnia, unspecified type G47.00 ; BMI 40.0-44.9, adult Z68.41 and Other seborrheic keratosis L82.1 [place] [address] [place] [id number] [place] [address] May, Chronic pain G89.29 and Insomnia, unspecified type G47.00 [place] [address] [place] [id number] [place] [address] Apr, Hypertriglyceridemia E78.1 [place] [address] [place] [id number] [place] [address] Apr, Chronic pain G89.29 and Insomnia, unspecified type G47.00 [place] [address] [place] [id number] [place] [address] 15 Apr, 2018 Hyperinsulinemia E16.1 ; Hypertriglyceridemia E78.1 and Fatigue, unspecified type R53.83 [place] [address] [address] 13 Apr, 2018 Hyperinsulinemia E16.1 ; Chronic pain G89.29 ; Primary insomnia F51.01 ; Chronic obstructive pulmonary disease, unspecified COPD type J44.9 ; Dysthymia F34.1 ; Hypertriglyceridemia E78.1 ; Fatigue, unspecified type R53.83 and Rash R21 [place] [address] [address] March, Chronic pain G89.29 and Insomnia, unspecified type G47.00 [place] [address] [address] March, Insomnia, unspecified type G47.00 [place] [address] [address] Feb, Chronic pain G89.29 [place] [address] [address] Feb, Chronic pain G89.29 [place] [address] [address] Jan, Chronic pain G89.29 [place] [address] [address] Dec, Chronic pain G89.29 [place] [address] [address] Nov, Chronic pain G89.29 and Insomnia, unspecified type G47.00 [place] [address] [address] Oct, Insomnia, unspecified type G47.00 ; Chronic pain G89.29 and Colon cancer screening Z12.11 [place] [address] [address] Oct, Chronic pain G89.29 [facility] [address] [address] Sep, Chronic pain G89.29 and Insomnia, unspecified type G47.00 [facility] [address] [place] [id number] [address] Sep, Chronic pain G89.29 [facility] [address] [place] [id number] [place] [address] Sep, [place] [address] [place] [id number] [place] [address] Aug, Medicare welcome exam Z00.00 ; Encounter for immunization Z23 ; Colon cancer screening Z12.11 and Encounter for screening for lung cancer Z12.2 [place] [address] [place] [id number] [place] [address] Aug, [place] [address] [place] [id number] [place] [address] Aug, Chronic pain G89.29 and Insomnia, unspecified type G47.00 [place] [address] [place] [id number] [place] [address] Aug, Hypertriglyceridemia E78.1 [place] [address] [place] [id number] [place] [address] Jul, Chronic pain G89.29 and Insomnia, unspecified type G47.00 [facility] [id number] [place] [address] Jun, Hypertriglyceridemia E78.1 [place] [address] [place] [id number] [place] [address] Jun, Chronic pain G89.29 and Insomnia, unspecified type G47.00 [facility] [address] [address] Jun, [facility] [address] [place] [id number] [place] [address] Jun, [facility] [address] [place] [id number] [place] [address] May, Hyperinsulinemia E16.1 ; Chronic pain G89.29 ; Insomnia, unspecified type G47.00 and Rash R21 [facility] [address] [place] [id number] [place] [address] May, Chronic pain G89.29 [facility] [address] [address] May, Hypertriglyceridemia E78.1 [facility] [address] [address] Apr, Chronic pain G89.29 [facility] [address] [place] [id number] [place] [address] Apr, Chronic pain G89.29 ; Hyperinsulinemia E16.1 ; Hypertriglyceridemia E78.1 and Primary insomnia F51.01 [facility] [address] [place] [id number] [place] [address] March, Chronic pain G89.29 [facility] [address] [place] [id number] [place] [address] March, Chronic pain G89.29 [facility] [address] [place] [id number] [place] [address] Feb, [facility] [address] [place] [id number] [place] [address] Feb, Chronic pain G89.29 [facility] [address] [place] [id number] [place] [address] Jan, Chronic pain G89.29 [facility] [address] [place] [id number] [place] [address] Dec, Chronic pain G89.29 [facility] [address] [place] [id number] [place] [address] Dec, [facility] [address] [place] [id number] [place] [address] Nov, Hypertriglyceridemia E78.1 [facility] [address] [address] Nov, [facility] [address] [address] Nov, Chronic pain G89.29 ; Hypertriglyceridemia E78.1 and Chronic obstructive pulmonary disease, unspecified COPD type J44.9 [facility] [address] [address] Nov, Chronic pain G89.29 [place] [address] [address] Oct, Chronic pain G89.29 [place] [address] [address] Oct, [place] [address] [address] Sep, Chronic obstructive pulmonary disease, unspecified COPD type J44.9 and Abscess L02.91 [place] [address] [address] Sep, Chronic pain G89.29 [place] [address] [address] Aug, Chronic pain G89.29 [place] [address] [address] Aug, Chronic pain G89.29 [place] [address] [place] [id number] [place] [address] Aug, Cutaneous horn L85.8 and Skin tag L91.8 [facility] [address] [place] [id number] [place] [address] Jul, [place] [address] [address] Jul, Hypertriglyceridemia E78.1 [facility] [address] [place] [id number] [place] [address] 07 Jul, 2016 Other chronic pain G89.29 ; Essential hypertension I10 ; Hyperinsulinemia E16.1 ; Hyperlipidemia, unspecified hyperlipidemia type E78.5 and Cutaneous horn L85.8 [facility] [address] [place] [id number] [place] [address] Jun, Chronic pain G89.29 [facility] [address] [address] May, Chronic pain G89.29 [facility] [address] [address] May, [facility] [address] [place] [id number] [place] [address] May, Skin infection L08.9 [facility] [address] [address] Apr, Chronic pain G89.29 [facility] [address] [place] [id number] [place] [address] Apr, [facility] [address] [place] [id number] [place] [address] Apr, Chronic pain G89.29 [facility] [address] [place] [id number] [place] [address] March, [facility] [address] [place] [id number] [place] [address] Feb, Chronic pain G89.29 ; Hyperinsulinemia E16.1 and Hypertriglyceridemia E78.1 [facility] [address] [address] Feb, [facility] [address] [place] [id number] [place] [address] Jan, [facility] [address] [address] Dec, [facility] [address] [place] [id number] [place] [address] Nov, [facility] [address] [address] Oct, [facility] [address] [address] Oct, Hyperinsulinemia E16.1 [facility] [address] [address] Oct, Other chronic pain G89.29 ; Chronic obstructive pulmonary disease, unspecified COPD type J44.9 ; Insomnia, unspecified type G47.00 ; Hyperinsulinemia E16.1 and Essential hypertension I10 [facility] [address] [address] Sep, [facility] [address] [address] Aug, [facility] [address] [address] 30 Jul, 2015 [facility] [address] [address] Jul, [facility] [address] [address] 14 Jul, 2015 Overweight 278.02 and Hyperinsulinemia 251.1 [facility] [address] [address] Jul, [facility] [address] [address] Jun, Skin tags, multiple acquired 701.9 [facility] [address] [address] 13 Jun, 2015 Other chronic pain 338.29 ; Erectile dysfunction 607.84 ; Hyperinsulinemia 251.1 and Hypertension 401.9 [facility] [address] [place] [address] Jun, [facility] [id number] [place] [address] Jun, [facility] [id number] [place] [address] Jun, [facility] [address] [place] [id number] [place] [address] May, Pure hyperglyceridemia 272.1 [facility] [address] [place] [id number] [place] [address] May, Pure hyperglyceridemia 272.1 [facility] [address] [place] [id number] [place] [address] May, [facility] [address] [place] [id number] [place] [address] May, Overgrown toenails 703.8 ; Seborrheic keratosis 702.19 ; Skin tag 701.9 ; Warts, genital 078.11 ; Cramps, extremity 729.82 ; Increased appetite 783.6 and Heat rash 705.1 [facility] [address] [place] [id number] [place] [address] May, [facility] [address] [place] [id number] [place] [address] Apr, [facility] [address] [place] [address] Apr, [facility] [address] [place] [address] March, [facility] [address] [place] [id number] [place] [address] Feb, [facility] [address] [place] [id number] [place] [address] Feb, [facility] [address] [place] [address] Jan, [facility] [place] [facility] [address] [id number] [place] [address] Jan, [facility] [place] [facility] [address] [id number] [place] [address] Jan, [facility] [place] [facility] [address] [id number] [place] [address] Jan, [facility] [place] [facility] [address] [id number] [place] [address] Jan, [facility] [place] [facility] [address] [id number] [place] [address] Jan, [facility] [place] [facility] [address] [id number] [place] [address] Jan, [facility] [place] [facility] [address] [id number] [place] [address] 16 Jan, 2014 [facility] [place] [facility] [address] [id number] [place] [address] 10 Jan, 2015 [facility] [place] [facility] [address] [id number] [place] [address] Jan, [facility] [place] [facility] [address] [id number] [place] [address] Jan, [facility] [place] [facility] [address] [id number] [place] [address] Jan, [facility] [place] [facility] [address] [id number] [address] Dec, 2014 [facility] [place] [facility] [address] [id number] [place] [address] Dec, 2014 [facility] [place] [facility] [address] [id number] [place] [address] Dec, 2014 [facility] [place] [facility] [address] [id number] [place] [address] Dec, 2014 [facility] [place] [facility] [address] [id number] [place] [address] 04 Dec, 2014 [facility] [address] [id number] [place] [address] Dec, [facility] [place] [facility] [address] [id number] [place] [address] Dec, 2014 [facility] [place] [facility] [address] [id number] [place] [address] Dec, [facility] [place] [facility] [address] [id number] [place] [address] Nov, [facility] [place] [facility] [address] [id number] [place] [address] Nov, [facility] [place] [facility] [address] [id number] [place] [address] Nov, [facility] [place] [facility] [address] [id number] [place] [address] Nov, [facility] [place] [facility] [address] [id number] [place] [address] Nov, [facility] [place] [facility] [address] [id number] [place] [address] Nov, [facility] [address] [facility] [facility] [id number] [place] [address] Nov, [facility] [place] [facility] [address] [id number] [place] [address] Nov, [facility] [place] [facility] [address] [id number] [place] [address] Oct, [facility] [place] [facility] [address] [id number] [place] [address] Oct, [facility] [place] [facility] [address] [id number] [place] [address] Sep, [facility] [place] [facility] [address] [id number] [place] [address] Sep, [facility] [place] [facility] [address] [id number] [place] [address] Sep, [facility] [place] [facility] [address] [id number] [place] [address] Sep, [facility] [place] [facility] [address] [id number] [place] [address] Aug, [facility] [place] [facility] [address] [id number] [place] [address] Aug, [facility] [place] [facility] [address] [id number] [place] [address] Aug, [facility] [place] [facility] [address] [id number] [place] [address] Aug, [facility] [place] [facility] [address] [facility] [id number] [place] [address] Aug, [facility] [place] [facility] [address] [id number] [address] Aug, [facility] [place] [facility] [address] [id number] [place] [address] Aug, [facility] [place] [facility] [address] [facility] [id number] [place] [address] Aug, [facility] [place] [facility] [address] [facility] [id number] [address] Jul, [facility] [place] [facility] [address] [id number] [address] 17 Jul, 2014 [facility] [place] [facility] [address] [id number] [address] Jul, [facility] [place] [facility] [address] [id number] [address] 05 Jul, 2014 [facility] [place] [facility] [address] [facility] [id number] [place] [address] 05 Jul, 2014 [facility] [place] [facility] [address] [id number] [place] [address] Jun, [facility] [place] [facility] [address] [id number] [place] [address] Jun, [facility] [place] [facility] [address] [id number] [place] [address] Jun, [facility] [place] [facility] [address] [id number] [place] [address] Jun, [facility] [place] [facility] [address] [id number] [place] [address] Jun, [facility] [place] [facility] [address] [id number] [place] [address] Jun, [facility] [place] [facility] [address] [id number] [place] [address] May, [facility] [place] [facility] [address] [id number] [place] [address] May, [facility] [place] [facility] [address] [id number] [place] [address] May, [facility] [place] [facility] [address] [id number] [place] [address] May, [facility] [place] [facility] [address] [id number] [place] [address] Apr, [facility] [place] [facility] [address] [id number] [place] [address] Apr, [facility] [place] [facility] [address] [id number] [place] [address] Apr, [facility] [place] [facility] [address] [id number] [place] [address] Apr, [facility] [place] [facility] [address] [id number] [place] [address] Apr, [facility] [place] [facility] [address] [id number] [place] [address] Apr, [facility] [place] [facility] [address] [id number] [place] [address] March, [facility] [place] [facility] [address] [id number] [place] [address] March, [facility] [place] [facility] [address] [id number] [place] [address] March, [facility] [place] [facility] [address] [id number] [place] [address] March, [facility] [place] [facility] [address] [id number] [place] [address] Feb, [facility] [place] [facility] [address] [id number] [place] [address] Feb, [facility] [place] [facility] [address] [id number] [place] [address] Feb, [facility] [place] [facility] [address] [id number] [place] [address] Feb, [facility] [place] [facility] [address] [id number] [place] [address] Feb, [facility] [place] [facility] [address] [id number] [place] [address] Feb, [facility] [place] [facility] [address] [id number] [place] [address] Feb, [facility] [place] [facility] [address] [id number] [place] [address] Feb, [facility] [place] [facility] [address] [id number] [place] [address] Feb, [facility] [place] [facility] [address] [id number] [place] [address] Feb, [facility] [place] [facility] [address] [id number] [place] [address] Feb, [facility] [place] [facility] [address] [id number] [place] [address] Feb, [facility] [place] [facility] [address] [id number] [place] [address] Feb, [facility] [place] [facility] [address] [id number] [place] [address] Feb, [facility] [place] [facility] [address] [id number] [place] [address] Feb, [facility] [place] [facility] [address] [id number] [place] [address] Feb, [facility] [place] [facility] [address] [id number] [place] [address] Jan, [facility] [place] [facility] [address] [id number] [place] [address] Jan, [facility] [place] [facility] [address] [facility] [id number] [place] [address] Dec, [facility] [place] [facility] [address] [id number] [place] [address] Dec, [facility] [place] [facility] [address] [id number] [place] [address] Dec, [facility] [place] [facility] [address] [facility] [id number] [place] [address] Dec, [facility] [place] [facility] [address] [id number] [place] [address] Dec, [facility] [place] [facility] [address] [id number] [place] [address] Dec, [facility] [place] [facility] [address] [id number] [place] [address] Dec, [facility] [place] [facility] [address] [id number] [place] [address] Nov, [facility] [place] [facility] [address] [id number] [place] [address] Nov, [facility] [place] [facility] [address] [id number] [place] [address] Nov, [facility] [address] [id number] [place] [address] Nov, [facility] [place] [facility] [address] [id number] [place] [address] Oct, [facility] [place] [facility] [address] [id number] [place] [address] Oct, [facility] [place] [facility] [address] [id number] [place] [address] Sep, [facility] [place] [facility] [address] [id number] [place] [address] Sep, [facility] [place] [facility] [address] [id number] [place] [address] Aug, [facility] [facility] [address] [id number] [place] [address] Aug, [facility] [place] [facility] [address] [id number] [place] [address] Aug, [facility] [place] [facility] [address] [id number] [place] [address] Aug, [facility] [place] [facility] [address] [id number] [place] [address] Aug, [facility] [place] [facility] [address] [id number] [place] [address] Aug, [facility] [place] [facility] [address] [id number] [place] [address] Aug, [facility] [place] [facility] [address] [id number] [place] [address] Aug, [facility] [place] [facility] [address] [id number] [place] [address] Aug, [facility] [place] [facility] [address] [id number] [place] [address] Aug, [facility] [address] [id number] [place] [address] Jun, [facility] [place] [facility] [address] [id number] [place] [address] Jun, [facility] [place] [facility] [address] [id number] [place] [address] May, [facility] [place] [facility] [address] [id number] [place] [address] Apr, [facility] [place] [facility] [address] [id number] [place] [address] Apr, [facility] [place] [facility] [address] [id number] [place] [address] March, [facility] [place] [facility] [address] [id number] [place] [address] Feb, [facility] [place] [facility] [address] [id number] [place] [address] Jan, [facility] [place] [facility] [address] [id number] [place] [address] Jan, [facility] [place] [facility] [address] [id number] [place] [address] Dec, [facility] [place] [facility] [address] [id number] [place] [address] Dec, [facility] [place] [facility] [address] [id number] [address] Nov, [facility] [place] [facility] [address] [id number] [place] [address] Jul, [facility] [place] [facility] [address] [id number] [place] [address] Jul, [facility] [place] [facility] [address] [id number] [place] [address] Jun, [facility] [place] [facility] [address] [facility] [id number] [place] [address] 30 May, 2012 [facility] [address] [facility] [id number] [place] [address] 30 May, 2012 [facility] [address] [facility] [id number] [place] [address] 23 May, 2012 [facility] [address] [facility] [id number] [place] [address] 16 May, 2012 [facility] [address] [facility] [id number] [place] [address] 15 May, 2012 [facility] [address] [facility] [id number] [address] May, [facility] [address] [facility] [id number] [place] [address] May, [facility] [id number] [address] Apr, [facility] [address] [facility] [id number] [place] [address] Apr, [facility] [address] [id number] [address] Apr, [facility] [address] [id number] [address] Apr, IMMUNIZATIONS No Known Immunizations SOCIAL HISTORY Never Assessed REASON FOR VISIT [facility] PLAN OF CARE VITAL SIGNS MEDICATIONS Unknown [...]
--- OUTSIDE RECORDS SUMMARY | 2019-07-08 00:20 | XMS REPORT ---
Author Author Migration, Doctor Organization [facility] Address Unknown Phone Unavailable Care Team Providers Care Radiosonde Operator Name Role Phone Migration, Doctor Unavailable Unavailable PROBLEMS Type Condition ICD9-CM Code COM63-VC Code Onset Dates Condition Status SNOMED Code Problem Hypertriglyceridemia E78.1 Active 648017789 Problem Family history of diabetes mellitus Z83.3 Active 176331542 Problem Hyperinsulinemia E16.1 Active 80834987 Problem Insomnia, unspecified type G47.00 Active 173175981 Problem Chronic pain G89.29 Active 55053658 Problem Dysthymia F34.1 Active 36004403 Problem History of MRSA infection Z86.14 Active 735670426 Problem Osteoarthritis M19.90 Active 037726417 Problem Chronic obstructive pulmonary disease, unspecified COPD type J44.9 Active 28784178 Problem Essential hypertension I10 Active 06192204 Problem Primary insomnia F51.01 Active 5023803 ALLERGIES No Information ENCOUNTERS Encounter Location Date Diagnosis [place] [address] [address] Feb, Insomnia, unspecified type G47.00 [place] [address] [place] [id number] [place] [address] Feb, [place] [address] [address] Feb, Hypertriglyceridemia E78.1 ; Chronic narcotic use F11.90 ; Essential hypertension I10 ; Encounter for immunization Z23 ; Chronic obstructive pulmonary disease, unspecified COPD type J44.9 ; Hyperinsulinemia E16.1 ; Epistaxis R04.0 ; Insomnia, unspecified type G47.00 and Chest pain, unspecified type R07.9 [facility] [address] [place] [id number] [place] [address] Jan, Chronic pain G89.29 and Insomnia, unspecified type G47.00 [place] [address] [place] [address] Dec, Chronic pain G89.29 and Insomnia, unspecified type G47.00 [place] [address] [place] [id number] [place] [address] Dec, Chronic pain G89.29 and Insomnia, unspecified type G47.00 [place] [address] [address] Nov, Chronic pain G89.29 and Insomnia, unspecified type G47.00 [place] [address] [place] [id number] [place] [address] Oct, Chronic pain G89.29 and Insomnia, unspecified type G47.00 [place] [address] [place] [id number] [place] [address] Oct, [place] [address] [address] Oct, Pneumonia of left lower lobe due to infectious organism J18.1 and Chronic obstructive pulmonary disease, unspecified COPD type J44.9 [place] [address] [address] Oct, Hypertriglyceridemia E78.1 [place] [address] [place] [id number] [place] [address] Sep, Hypertriglyceridemia E78.1 [place] [address] [place] [id number] [place] [address] Sep, Chronic pain G89.29 and Insomnia, unspecified type G47.00 [place] [address] [place] [id number] [place] [address] 2018 Seborrheic keratoses L82.1 and Sebaceous cyst L72.3 [place] [address] [place] [id number] [place] [address] 16 Aug, 2018 Chronic pain G89.29 and Insomnia, unspecified type G47.00 [place] [address] [place] [id number] [place] [address] 18 Jul, 2018 Seborrheic keratoses L82.1 [place] [address] [address] Jul, Chronic pain G89.29 and Insomnia, unspecified type G47.00 [place] [address] [place] [id number] [place] [address] Jun, Chronic pain G89.29 and Insomnia, unspecified type G47.00 [place] [address] [place] [id number] [place] [address] Jun, Seborrheic keratoses L82.1 [place] [address] [place] [id number] [place] [address] May, Dysthymia F34.1 ; Chronic obstructive pulmonary disease, unspecified COPD type J44.9 ; Chronic pain G89.29 ; Insomnia, unspecified type G47.00 ; BMI 40.0-44.9, adult Z68.41 and Other seborrheic keratosis L82.1 [place] [address] [address] May, Chronic pain G89.29 and Insomnia, unspecified type G47.00 [place] [address] [place] [id number] [place] [address] Apr, Hypertriglyceridemia E78.1 [place] [address] [place] [id number] [place] [address] Apr, Chronic pain G89.29 and Insomnia, unspecified type G47.00 [place] [address] [place] [id number] [place] [address] 15 Apr, 2018 Hyperinsulinemia E16.1 ; Hypertriglyceridemia E78.1 and Fatigue, unspecified type R53.83 [place] [address] [place] [id number] [place] [address] Apr, Hyperinsulinemia E16.1 ; Chronic pain G89.29 ; Primary insomnia F51.01 ; Chronic obstructive pulmonary disease, unspecified COPD type J44.9 ; Dysthymia F34.1 ; Hypertriglyceridemia E78.1 ; Fatigue, unspecified type R53.83 and Rash R21 [place] [address] [place] [id number] [place] [address] March, Chronic pain G89.29 and Insomnia, unspecified type G47.00 [place] [address] [address] March, Insomnia, unspecified type G47.00 [place] [address] [address] Feb, Chronic pain G89.29 [place] [address] [address] Feb, Chronic pain G89.29 [place] [address] [address] Jan, Chronic pain G89.29 [place] [address] [address] Dec, Chronic pain G89.29 [place] [address] [address] Nov, Chronic pain G89.29 and Insomnia, unspecified type G47.00 [place] [address] [place] [id number] [place] [address] Oct, Insomnia, unspecified type G47.00 ; Chronic pain G89.29 and Colon cancer screening Z12.11 [place] [address] [address] Oct, Chronic pain G89.29 [place] [address] [place] [id number] [place] [address] Sep, Chronic pain G89.29 and Insomnia, unspecified type G47.00 [place] [address] [address] Sep, Chronic pain G89.29 [place] [address] [place] [id number] [place] [address] Sep, [place] [address] [place] [id number] [place] [address] Aug, Medicare welcome exam Z00.00 ; Encounter for immunization Z23 ; Colon cancer screening Z12.11 and Encounter for screening for lung cancer Z12.2 [place] [address] [place] [id number] [place] [address] Aug, [place] [address] [place] [id number] [place] [address] Aug, Chronic pain G89.29 and Insomnia, unspecified type G47.00 [place] [address] [place] [id number] [place] [address] Aug, Hypertriglyceridemia E78.1 [place] [address] [place] [id number] [place] [address] Jul, Chronic pain G89.29 and Insomnia, unspecified type G47.00 [place] [address] [place] [id number] [place] [address] Jun, Hypertriglyceridemia E78.1 [place] [address] [place] [id number] [place] [address] Jun, Chronic pain G89.29 and Insomnia, unspecified type G47.00 [place] [address] [place] [id number] [place] [address] Jun, [place] [address] [place] [id number] [place] [address] Jun, [place] [address] [place] [id number] [place] [address] May, Hyperinsulinemia E16.1 ; Chronic pain G89.29 ; Insomnia, unspecified type G47.00 and Rash R21 [place] [address] [place] [id number] [place] [address] May, Chronic pain G89.29 [facility] [address] [place] [id number] [place] [address] May, Hypertriglyceridemia E78.1 [facility] [address] [place] [id number] [place] [address] Apr, Chronic pain G89.29 [facility] [address] [place] [id number] [place] [address] Apr, Chronic pain G89.29 ; Hyperinsulinemia E16.1 ; Hypertriglyceridemia E78.1 and Primary insomnia F51.01 [facility] [address] [place] [id number] [place] [address] March, Chronic pain G89.29 [facility] [address] [place] [id number] [place] [address] March, Chronic pain G89.29 [facility] [address] [place] [id number] [place] [address] Feb, [facility] [address] [place] [id number] [place] [address] Feb, Chronic pain G89.29 [facility] [id number] [place] [address] Jan, Chronic pain G89.29 [facility] [address] [place] [id number] [place] [address] Dec, Chronic pain G89.29 [facility] [id number] [place] [address] Dec, [facility] [address] [place] [id number] [place] [address] Nov, Hypertriglyceridemia E78.1 [facility] [id number] [place] [address] Nov, [facility] [address] [place] [address] [place] [address] Nov, Chronic pain G89.29 ; Hypertriglyceridemia E78.1 and Chronic obstructive pulmonary disease, unspecified COPD type J44.9 [place] [address] [place] [id number] [place] [address] Nov, Chronic pain G89.29 [place] [address] [address] Oct, Chronic pain G89.29 [place] [address] [address] Oct, [place] [address] [address] Sep, Chronic obstructive pulmonary disease, unspecified COPD type J44.9 and Abscess L02.91 [place] [address] [address] Sep, Chronic pain G89.29 [place] [address] [address] Aug, Chronic pain G89.29 [place] [address] [address] Aug, Chronic pain G89.29 [place] [address] [address] Aug, Cutaneous horn L85.8 and Skin tag L91.8 [place] [address] [place] [id number] [place] [address] Jul, [place] [address] [address] 09 Jul, 2016 Hypertriglyceridemia E78.1 [place] [address] [place] [id number] [place] [address] 07 Jul, 2016 Other chronic pain G89.29 ; Essential hypertension I10 ; Hyperinsulinemia E16.1 ; Hyperlipidemia, unspecified hyperlipidemia type E78.5 and Cutaneous horn L85.8 [facility] [address] [address] Jun, Chronic pain G89.29 [facility] [address] [place] [id number] [place] [address] May, Chronic pain G89.29 [facility] [address] [place] [id number] [place] [address] May, [facility] [address] [place] [id number] [place] [address] May, Skin infection L08.9 [facility] [address] [place] [id number] [place] [address] Apr, Chronic pain G89.29 [facility] [address] [place] [id number] [place] [address] Apr, [facility] [address] [place] [id number] [place] [address] Apr, Chronic pain G89.29 [facility] [address] [place] [id number] [place] [address] March, [facility] [address] [place] [id number] [place] [address] Feb, Chronic pain G89.29 ; Hyperinsulinemia E16.1 and Hypertriglyceridemia E78.1 [facility] [id number] [place] [address] Feb, [facility] [id number] [place] [address] Jan, [facility] [address] [place] [id number] [place] [address] Dec, [facility] [id number] [place] [address] Nov, [facility] [id number] [place] [address] Oct, [facility] [address] [place] [id number] [place] [address] Oct, Hyperinsulinemia E16.1 [facility] [address] [address] Oct, Other chronic pain G89.29 ; Chronic obstructive pulmonary disease, unspecified COPD type J44.9 ; Insomnia, unspecified type G47.00 ; Hyperinsulinemia E16.1 and Essential hypertension I10 [facility] [address] [address] Sep, [facility] [address] [address] Aug, [facility] [address] [address] Jul, [facility] [address] [address] Jul, [facility] [address] [address] Jul, Overweight 278.02 and Hyperinsulinemia 251.1 [facility] [address] [address] Jul, [facility] [address] [address] Jun, Skin tags, multiple acquired 701.9 [facility] [address] [address] Jun, Other chronic pain 338.29 ; Erectile dysfunction 607.84 ; Hyperinsulinemia 251.1 and Hypertension 401.9 [facility] [address] [address] Jun, [facility] [address] [address] Jun, [facility] [address] [address] Jun, [facility] [address] [place] [id number] [address] May, Pure hyperglyceridemia 272.1 [facility] [address] [place] [id number] [place] [address] May, Pure hyperglyceridemia 272.1 [facility] [address] [place] [id number] [place] [address] May, [facility] [address] [place] [id number] [place] [address] May, Overgrown toenails 703.8 ; Seborrheic keratosis 702.19 ; Skin tag 701.9 ; Warts, genital 078.11 ; Cramps, extremity 729.82 ; Increased appetite 783.6 and Heat rash 705.1 [facility] [address] [place] [id number] [place] [address] May, [facility] [address] [place] [id number] [place] [address] Apr, [facility] [address] [place] [id number] [place] [address] Apr, [facility] [address] [place] [id number] [place] [address] March, [facility] [id number] [place] [address] Feb, [facility] [address] [place] [id number] [place] [address] Feb, [facility] [address] [place] [id number] [place] [address] Jan, [facility] [address] [place] [id number] [place] [address] Jan, [facility] [address] [address] Jan, [facility] [address] [place] [id number] [place] [address] Jan, 2014 [facility] [place] [facility] [address] [id number] [place] [address] Jan, 2014 [facility] [place] [facility] [address] [id number] [place] [address] Jan, 2014 [facility] [place] [facility] [address] [id number] [place] [address] 16 Jan, 2014 [facility] [place] [facility] [address] [id number] [place] [address] 16 Jan, 2014 [facility] [place] [facility] [address] [id number] [place] [address] Jan, 2014 [facility] [place] [facility] [address] [facility] [id number] [place] [address] Jan, 2014 [facility] [place] [facility] [address] [id number] [place] [address] Jan, 2014 [facility] [place] [facility] [address] [id number] [place] [address] 05 Jan, 2015 [facility] [place] [facility] [address] [id number] [place] [address] Dec, 2014 [facility] [place] [facility] [address] [facility] [id number] [place] [address] Dec, 2014 [facility] [place] [facility] [address] [id number] [place] [address] Dec, 2014 [facility] [place] [facility] [address] [id number] [place] [address] Dec, 2014 [facility] [place] [facility] [address] [id number] [place] [address] Dec, 2014 [facility] [place] [facility] [address] [id number] [place] [address] Dec, 2014 [facility] [place] [facility] [address] [id number] [place] [address] Dec, [facility] [place] [facility] [address] [id number] [place] [address] Dec, [facility] [place] [facility] [address] [id number] [place] [address] Nov, [facility] [place] [facility] [address] [id number] [place] [address] Nov, [facility] [place] [facility] [address] [id number] [place] [address] Nov, [facility] [place] [facility] [address] [id number] [place] [address] Nov, [facility] [place] [facility] [address] [id number] [place] [address] Nov, [facility] [place] [facility] [address] [id number] [place] [address] Nov, [facility] [place] [facility] [address] [id number] [place] [address] Nov, [facility] [place] [facility] [address] [id number], [place] [address] Nov, [facility] [place] [facility] [address] [id number] [place] [address] Oct, [facility] [place] [facility] [address] [id number], [place] [address] Oct, [facility] [place] [facility] [address] [id number], [place] [address] Sep, [facility] [place] [facility] [address] [id number], [place] [address] Sep, [facility] [place] [facility] [address] [id number], [place] [address] Sep, [facility] [place] [facility] [address] [id number] [place] [address] Sep, [facility] [place] [facility] [address] [id number] [place] [address] Aug, [facility] [place] [facility] [address] [id number] [place] [address] Aug, [facility] [place] [facility] [address] [id number] [place] [address] Aug, [facility] [place] [facility] [address] [id number] [place] [address] Aug, [facility] [place] [facility] [address] [id number] [place] [address] Aug, [facility] [place] [facility] [address] [id number] [place] [address] Aug, [facility] [place] [facility] [address] [id number] [place] [address] Aug, [facility] [place] [facility] [address] [id number] [place] [address] Aug, [facility] [place] [facility] [address] [id number] [place] [address] Jul, [facility] [place] [facility] [address] [id number] [place] [address] Jul, [facility] [place] [facility] [address] [id number] [place] [address] Jul, [facility] [place] [facility] [address] [id number] [place] [address] Jul, [facility] [place] [facility] [address] [id number] [place] [address] Jul, [facility] [place] [facility] [address] [id number] [place] [address] Jun, [facility] [place] [facility] [address] [id number] [place] [address] Jun, [facility] [place] [facility] [address] [id number] [place] [address] Jun, [facility] [place] [facility] [address] [id number] [place] [address] Jun, [facility] [place] [facility] [address] [id number] [place] [address] Jun, [facility] [place] [facility] [address] [id number] [place] [address] Jun, [facility] [place] [facility] [address] [id number] [place] [address] May, [facility] [place] [facility] [address] [id number] [place] [address] May, [facility] [place] [facility] [address] [id number] [place] [address] May, [facility] [place] [facility] [address] [id number] [place] [address] May, [facility] [place] [facility] [address] [id number] [place] [address] Apr, [facility] [place] [facility] [address] [id number] [place] [address] Apr, [facility] [place] [facility] [address] [id number] [place] [address] Apr, [facility] [place] [facility] [address] [id number] [place] [address] Apr, [facility] [place] [facility] [address] [id number] [place] [address] Apr, [facility] [place] [facility] [address] [id number] [place] [address] Apr, [facility] [place] [facility] [address] [id number] [place] [address] March, [facility] [place] [facility] [address] [id number] [place] [address] March, [facility] [place] [facility] [address] [id number] [place] [address] March, [facility] [address] [id number] [place] [address] March, [facility] [place] [facility] [address] [id number] [place] [address] Feb, [facility] [place] [facility] [address] [id number] [place] [address] Feb, [facility] [place] [facility] [address] [id number] [place] [address] Feb, [facility] [place] [facility] [address] [id number] [place] [address] Feb, [facility] [place] [facility] [address] [id number] [place] [address] Feb, [facility] [place] [facility] [address] [id number] [place] [address] Feb, [facility] [place] [facility] [address] [id number] [place] [address] Feb, [facility] [place] [facility] [address] [id number] [place] [address] Feb, [facility] [place] [facility] [address] [id number] [place] [address] Feb, [facility] [place] [facility] [address] [id number] [place] [address] Feb, [facility] [place] [facility] [address] [id number] [place] [address] Feb, [facility] [place] [facility] [address] [id number] [place] [address] Feb, [facility] [place] [facility] [address] [id number] [place] [address] Feb, [facility] [place] [facility] [address] [id number] [place] [address] Feb, [facility] [place] [facility] [address] [id number] [place] [address] Feb, [facility] [place] [facility] [address] [id number] [place] [address] Feb, [facility] [place] [facility] [address] [id number] [place] [address] Jan, [facility] [place] [facility] [address] [id number] [place] [address] Jan, [facility] [place] [facility] [address] [id number] [place] [address] Dec, [facility] [place] [facility] [address] [id number] [place] [address] Dec, [facility] [place] [facility] [address] [facility] [id number] [place] [address] Dec, [facility] [place] [facility] [address] [id number] [place] [address] Dec, [facility] [place] [facility] [address] [id number] [place] [address] Dec, [facility] [place] [facility] [address] [id number] [place] [address] Dec, [facility] [place] [facility] [address] [facility] [id number] [place] [address] Dec, [facility] [place] [facility] [address] [id number], [place] [address] Nov, [facility] [place] [facility] [address] [id number] [place] [address] Nov, [facility] [place] [facility] [address] [id number] [place] [address] Nov, [facility] [place] [facility] [address] [facility] [id number] [place] [address] Nov, [facility] [place] [facility] [address] [id number], [place] [address] Oct, [facility] [place] [facility] [address] [id number] [place] [address] Oct, [facility] [place] [facility] [address] [id number], [place] [address] Sep, [facility] [place] [facility] [address] [id number] [place] [address] Sep, [facility] [place] [facility] [address] [id number] [place] [address] Aug, [facility] [place] [facility] [address] [id number] [place] [address] Aug, [facility] [place] [facility] [address] [id number] [place] [address] Aug, [facility] [place] [facility] [address] [id number], [place] [address] Aug, [facility] [place] [facility] [address] [id number] [place] [address] Aug, [facility] [place] [facility] [address] [id number] [place] [address] Aug, [facility] [place] [facility] [address] [id number], [place] [address] Aug, [facility] [place] [facility] [address] [id number], [place] [address] Aug, [facility] [place] [facility] [address] [id number], [place] [address] Aug, [facility] [place] [facility] [address] [id number], [place] [address] Aug, [facility] [place] [facility] [address] [id number], [place] [address] Jun, [facility] [place] [facility] [address] [id number], [place] [address] Jun, [facility] [place] [facility] [address] [id number] [place] [address] May, [facility] [place] [facility] [address] [id number] [place] [address] Apr, [facility] [place] [facility] [address] [id number] [place] [address] Apr, [facility] [place] [facility] [address] [id number] [place] [address] March, [facility] [place] [facility] [address] [id number] [place] [address] Feb, [facility] [place] [facility] [address] [id number] [place] [address] Jan, [facility] [place] [facility] [address] [id number] [place] [address] Jan, [facility] [place] [facility] [address] [id number] [place] [address] Dec, [facility] [place] [facility] [address] [id number] [place] [address] Dec, [facility] [place] [facility] [address] [id number] [place] [address] Nov, [facility] [place] [facility] [address] [id number] [place] [address] Jul, [facility] [place] [facility] [address] [id number] [place] [address] Jul, [facility] [place] [facility] [address] [id number] [place] [address] Jun, [facility] [place] [facility] [address] [id number] [place] [address] May, [facility] [place] [facility] [address] [id number] [place] [address] May, [facility] [place] [facility] [address] [id number] [place] [address] May, [facility] [address] [id number], [place] [address] 16 May, 2012 [facility] [address] [id number], [place] [address] May, [facility] [address] [id number], [place] [address] May, [facility] [id number], [place] [address] May, [facility] [id number], [place] [address] Apr, [facility] [id number], [place] [address] Apr, [facility] [address] [id number], [place] [address] Apr, [facility] [address] [id number], [place] [address] Apr, IMMUNIZATIONS No Known Immunizations SOCIAL HISTORY Never Assessed REASON FOR VISIT EMR-[facility] PLAN OF CARE VITAL SIGNS MEDICATIONS Unknown [...]
--- OUTSIDE RECORDS SUMMARY | 2019-07-08 00:21 | XMS REPORT ---
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 Name Role Phone Migration, Doctor Unavailable Unavailable PROBLEMS Type Condition ICD9-CM Code [id number] Code Onset Dates Condition Status SNOMED Code Problem Hypertriglyceridemia E78.1 Active 493531772 Problem Family history of diabetes mellitus Z83.3 Active 720334213 Problem Hyperinsulinemia E16.1 Active 62711762 Problem Insomnia, unspecified type G47.00 Active 484879910 Problem Chronic pain G89.29 Active 72369978 Problem Dysthymia F34.1 Active 77961657 Problem History of MRSA infection Z86.14 Active 069843078 Problem Osteoarthritis M19.90 Active 873576193 Problem Chronic obstructive pulmonary disease, unspecified COPD type J44.9 Active 76635737 Problem Essential hypertension I10 Active 16361472 Problem Primary insomnia F51.01 Active 9358327 ALLERGIES No Information ENCOUNTERS Encounter Location Date Diagnosis [place] [address] [address] Feb, [place] [address] [address] Feb, Hypertriglyceridemia E78.1 ; Chronic narcotic use F11.90 ; Essential hypertension I10 ; Encounter for immunization Z23 ; Chronic obstructive pulmonary disease, unspecified COPD type J44.9 ; Hyperinsulinemia E16.1 ; Epistaxis R04.0 ; Insomnia, unspecified type G47.00 and Chest pain, unspecified type R07.9 [place] [address] [address] Jan, Chronic pain G89.29 and Insomnia, unspecified type G47.00 [place] [address] [address] Dec, Chronic pain G89.29 and Insomnia, unspecified type G47.00 [place] [address] [place] [id number] [place] [address] Dec, Chronic pain G89.29 and Insomnia, unspecified type G47.00 [place] [address] [place] [id number] [place] [address] Nov, Chronic pain G89.29 and Insomnia, unspecified type G47.00 [place] [address] [place] [id number] [place] [address] Oct, Chronic pain G89.29 and Insomnia, unspecified type G47.00 [place] [address] [place] [id number] [place] [address] Oct, [place] [address] [place] [id number] [place] [address] Oct, Pneumonia of left lower lobe due to infectious organism J18.1 and Chronic obstructive pulmonary disease, unspecified COPD type J44.9 [place] [address] [place] [id number] [place] [address] Oct, Hypertriglyceridemia E78.1 [place] [address] [place] [id number] [place] [address] Sep, Hypertriglyceridemia E78.1 [place] [address] [place] [id number] [place] [address] Sep, Chronic pain G89.29 and Insomnia, unspecified type G47.00 [place] [address] [place] [id number] [place] [address] Aug, Seborrheic keratoses L82.1 and Sebaceous cyst L72.3 [place] [address] [place] [id number] [place] [address] Aug, Chronic pain G89.29 and Insomnia, unspecified type G47.00 [place] [address] [place] [id number] [place] [address] Jul, Seborrheic keratoses L82.1 [place] [address] [place] [id number] [place] [address] Jul, Chronic pain G89.29 and Insomnia, unspecified type G47.00 [place] [address] [place] [id number] [place] [address] Jun, Chronic pain G89.29 and Insomnia, unspecified type G47.00 [place] [address] [address] Jun, Seborrheic keratoses L82.1 [place] [address] [address] May, Dysthymia F34.1 ; Chronic obstructive pulmonary disease, unspecified COPD type J44.9 ; Chronic pain G89.29 ; Insomnia, unspecified type G47.00 ; BMI 40.0-44.9, adult Z68.41 and Other seborrheic keratosis L82.1 [place] [address] [place] [id number] [place] [address] May, Chronic pain G89.29 and Insomnia, unspecified type G47.00 [place] [address] [place] [id number] [place] [address] Apr, Hypertriglyceridemia E78.1 [place] [address] [address] Apr, Chronic pain G89.29 and Insomnia, unspecified type G47.00 [place] [address] [place] [id number] [place] [address] 15 Apr, 2018 Hyperinsulinemia E16.1 ; Hypertriglyceridemia E78.1 and Fatigue, unspecified type R53.83 [place] [address] [place] [id number] [place] [address] 13 Apr, 2018 Hyperinsulinemia E16.1 ; Chronic pain G89.29 ; Primary insomnia F51.01 ; Chronic obstructive pulmonary disease, unspecified COPD type J44.9 ; Dysthymia F34.1 ; Hypertriglyceridemia E78.1 ; Fatigue, unspecified type R53.83 and Rash R21 [facility] [address] [place] [id number] [place] [address] March, Chronic pain G89.29 and Insomnia, unspecified type G47.00 [facility] [address] [place] [id number] [place] [address] March, Insomnia, unspecified type G47.00 [facility] [address] [place] [id number] [place] [address] Feb, Chronic pain G89.29 [place] [address] [place] [id number] [place] [address] Feb, Chronic pain G89.29 [place] [address] [place] [id number] [place] [address] Jan, Chronic pain G89.29 [place] [address] [place] [id number] [place] [address] Dec, Chronic pain G89.29 [place] [address] [place] [id number] [place] [address] Nov, Chronic pain G89.29 and Insomnia, unspecified type G47.00 [place] [address] [place] [id number] [place] [address] Oct, Insomnia, unspecified type G47.00 ; Chronic pain G89.29 and Colon cancer screening Z12.11 [place] [address] [place] [id number] [place] [address] Oct, Chronic pain G89.29 [place] [address] [place] [id number] [place] [address] Sep, Chronic pain G89.29 and Insomnia, unspecified type G47.00 [place] [address] [place] [id number] [place] [address] Sep, Chronic pain G89.29 [place] [address] [place] [id number] [place] [address] Sep, [facility] [id number] [place] [address] Aug, Medicare welcome exam Z00.00 ; Encounter for immunization Z23 ; Colon cancer screening Z12.11 and Encounter for screening for lung cancer Z12.2 [place] [address] [place] [id number] [place] [address] Aug, [place] [address] [place] [id number] [place] [address] Aug, Chronic pain G89.29 and Insomnia, unspecified type G47.00 [place] [address] [place] [id number] [place] [address] Aug, Hypertriglyceridemia E78.1 [place] [address] [place] [id number] [place] [address] Jul, Chronic pain G89.29 and Insomnia, unspecified type G47.00 [place] [address] [place] [id number] [place] [address] Jun, Hypertriglyceridemia E78.1 [place] [address] [place] [id number] [place] [address] Jun, Chronic pain G89.29 and Insomnia, unspecified type G47.00 [place] [address] [place] [id number] [place] [address] Jun, [facility] [address] [place] [id number] [place] [address] Jun, [facility] [address] [place] [id number] [place] [address] May, Hyperinsulinemia E16.1 ; Chronic pain G89.29 ; Insomnia, unspecified type G47.00 and Rash R21 [place] [address] [place] [id number] [place] [address] May, Chronic pain G89.29 [place] [address] [place] [id number] [place] [address] May, Hypertriglyceridemia E78.1 [facility] [address] [address] Apr, Chronic pain G89.29 [facility] [address] [place] [id number] [place] [address] Apr, Chronic pain G89.29 ; Hyperinsulinemia E16.1 ; Hypertriglyceridemia E78.1 and Primary insomnia F51.01 [facility] [address] [place] [id number] [place] [address] March, Chronic pain G89.29 [facility] [address] [address] March, Chronic pain G89.29 [facility] [address] [address] Feb, [facility] [address] [address] Feb, Chronic pain G89.29 [facility] [address] [address] Jan, Chronic pain G89.29 [facility] [address] [place] [id number] [place] [address] Dec, Chronic pain G89.29 [facility] [address] [place] [id number] [place] [address] Dec, [facility] [address] [place] [id number] [place] [address] Nov, Hypertriglyceridemia E78.1 [facility] [address] [address] Nov, [facility] [address] [place] [id number] [place] [address] Nov, Chronic pain G89.29 ; Hypertriglyceridemia E78.1 and Chronic obstructive pulmonary disease, unspecified COPD type J44.9 [facility] [address] [place] [id number] [place] [address] 10 Nov, 2016 Chronic pain G89.29 [facility] [address] [place] [id number] [place] [address] Oct, Chronic pain G89.29 [facility] [address] [place] [id number] [place] [address] Oct, [facility] [address] [address] Sep, Chronic obstructive pulmonary disease, unspecified COPD type J44.9 and Abscess L02.91 [place] [address] [address] 16 Sep, 2016 Chronic pain G89.29 [place] [address] [place] [id number] [place] [address] Aug, Chronic pain G89.29 [place] [address] [place] [id number] [place] [address] Aug, Chronic pain G89.29 [place] [address] [address] Aug, Cutaneous horn L85.8 and Skin tag L91.8 [place] [address] [place] [id number] [place] [address] Jul, [place] [address] [address] Jul, Hypertriglyceridemia E78.1 [place] [address] [place] [id number] [place] [address] 07 Jul, 2016 Other chronic pain G89.29 ; Essential hypertension I10 ; Hyperinsulinemia E16.1 ; Hyperlipidemia, unspecified hyperlipidemia type E78.5 and Cutaneous horn L85.8 [place] [address] [place] [id number] [place] [address] Jun, Chronic pain G89.29 [facility] [address] [address] 27 May, 2016 Chronic pain G89.29 [facility] [id number] [place] [address] 15 May, 2016 [facility] [address] [address] May, Skin infection L08.9 [facility] [id number] [place] [address] Apr, Chronic pain G89.29 [facility] [address] [place] [id number] [place] [address] Apr, [facility] [address] [place] [address] Apr, Chronic pain G89.29 [facility] [address] [place] [id number] [place] [address] March, [facility] [id number] [place] [address] Feb, Chronic pain G89.29 ; Hyperinsulinemia E16.1 and Hypertriglyceridemia E78.1 [facility] [address] [address] Feb, [facility] [address] [address] Jan, [facility] [address] [address] Dec, [facility] [address] [address] Nov, [facility] [address] [address] Oct, [facility] [address] [address] Oct, Hyperinsulinemia E16.1 [facility] [address] [place] [id number] [place] [address] Oct, Other chronic pain G89.29 ; Chronic obstructive pulmonary disease, unspecified COPD type J44.9 ; Insomnia, unspecified type G47.00 ; Hyperinsulinemia E16.1 and Essential hypertension I10 [facility] [address] [address] Sep, [facility] [address] [address] Aug, [facility] [address] [address] Jul, [place] [address] [address] Jul, [facility] [address] [address] Jul, Overweight 278.02 and Hyperinsulinemia 251.1 [facility] [address] [address] Jul, [facility] [address] [address] Jun, Skin tags, multiple acquired 701.9 [facility] [address] [place] [address] Jun, Other chronic pain 338.29 ; Erectile dysfunction 607.84 ; Hyperinsulinemia 251.1 and Hypertension 401.9 [facility] [address] [place] [id number] [place] [address] Jun, [facility] [address] [address] Jun, [facility] [address] [address] Jun, [facility] [address] [place] [id number] [place] [address] May, Pure hyperglyceridemia 272.1 [facility] [address] [place] [id number] [place] [address] May, Pure hyperglyceridemia 272.1 [facility] [address] [place] [id number] [place] [address] May, [facility] [address] [place] [id number] [place] [address] May, Overgrown toenails 703.8 ; Seborrheic keratosis 702.19 ; Skin tag 701.9 ; Warts, genital 078.11 ; Cramps, extremity 729.82 ; Increased appetite 783.6 and Heat rash 705.1 [facility] [address] [place] [id number] [place] [address] May, [facility] [address] [place] [id number] [place] [address] Apr, [facility] [address] [place] [id number] [place] [address] Apr, [facility] [address] [place] [id number] [place] [address] March, [facility] [address] [place] [id number] [place] [address] Feb, [facility] [address] [place] [id number] [place] [address] Feb, [facility] [address] [place] [id number] [place] [address] Jan, [facility] [address] [place] [id number] [place] [address] Jan, [facility] [address] [place] [id number] [place] [address] Jan, [facility] [address] [place] [id number] [place] [address] Jan, [facility] [address] [place] [id number] [place] [address] Jan, 2014 [facility] [place] [facility] [address] [id number] [place] [address] Jan, 2014 [facility] [place] [facility] [address] [facility] [place] [place] [id number] [place] [address] 16 Jan, 2014 [facility] [place] [facility] [address] [facility] [place] [place] [id number] [place] [address] 16 Jan, 2014 [facility] [place] [facility] [address] [facility] [place] [place] [id number] [place] [address] 10 Jan, 2014 [facility] [place] [facility] [address] [facility] [place] [place] [id number] [place] [address] 10 Jan, 2014 [facility] [place] [facility] [address] [facility] [place] [place] [id number] [place] [address] Jan, 2014 [facility] [place] [facility] [address] [place] [id number] [place] [address] Jan, 2014 [facility] [place] [facility] [address] [facility] [place] [place] [id number] [place] [address] Dec, 2014 [facility] [place] [facility] [address] [place] [id number] [place] [address] Dec, 2014 [facility] [place] [facility] [address] [place] [id number] [place] [address] Dec, 2014 [facility] [place] [facility] [address] [place] [address] Dec, 2014 [facility] [place] [facility] [address] [facility] [id number] [address] Dec, 2014 [facility] [place] [facility] [address] [facility] [place] [id number] [place] [address] Dec, 2014 [facility] [place] [facility] [address] [facility] [place] [id number], [place] [address] Dec, 2014 [facility] [place] [facility] [address] [address] Dec, [facility] [place] [facility] [address] [id number] [place] [address] Nov, [facility] [place] [facility] [address] [id number] [place] [address] Nov, [facility] [place] [facility] [address] [id number] [place] [address] Nov, [facility] [place] [facility] [address] [id number] [place] [address] Nov, [facility] [place] [facility] [address] [id number] [place] [address] Nov, [facility] [place] [facility] [address] [id number] [place] [address] Nov, [facility] [place] [facility] [address] [id number] [place] [address] Nov, [facility] [place] [facility] [address] [id number], [place] [address] Nov, [facility] [place] [facility] [address] [id number] [place] [address] Oct, [facility] [place] [facility] [address] [id number], [place] [address] Oct, [facility] [place] [facility] [address] [id number], [place] [address] Sep, [facility] [place] [facility] [address] [id number], [place] [address] Sep, [facility] [place] [facility] [address] [id number], [place] [address] Sep, [facility] [place] [facility] [address] [id number], [place] [address] Sep, [facility] [place] [facility] [address] [id number], [place] [address] Aug, [facility] [place] [facility] [address] [id number], [place] [address] Aug, [facility] [place] [facility] [address] [id number] [place] [address] Aug, [facility] [place] [facility] [address] [id number] [place] [address] Aug, [facility] [place] [facility] [address] [facility] [place] [place] [id number] [place] [address] Aug, [facility] [place] [facility] [address] [id number] [place] [address] Aug, [facility] [place] [facility] [address] [id number] [place] [address] Aug, [facility] [place] [facility] [address] [id number] [place] [address] Aug, [facility] [place] [facility] [address] [facility] [place] [place] [id number] [place] [address] Jul, [facility] [place] [facility] [address] [id number] [place] [address] Jul, [facility] [place] [facility] [address] [facility] [place] [id number] [place] [address] Jul, [facility] [place] [facility] [address] [facility] [place] [place] [id number] [place] [address] Jul, [facility] [place] [facility] [address] [facility] [place] [place] [id number] [place] [address] Jul, [facility] [place] [facility] [address] [id number], [place] [address] Jun, [facility] [place] [facility] [address] [id number] [place] [address] Jun, [facility] [place] [facility] [address] [facility] [place] [place] [id number] [place] [address] Jun, [facility] [place] [facility] [address] [facility] [place] [place] [id number] [place] [address] Jun, [facility] [place] [facility] [address] [id number] [place] [address] Jun, [facility] [place] [facility] [address] [id number] [place] [address] Jun, [facility] [place] [facility] [address] [id number] [place] [address] May, [facility] [place] [facility] [address] [id number] [place] [address] May, [facility] [place] [facility] [address] [id number] [place] [address] May, [facility] [place] [facility] [address] [id number] [place] [address] May, [facility] [place] [facility] [address] [id number] [place] [address] Apr, [facility] [place] [facility] [address] [id number] [place] [address] Apr, [facility] [place] [facility] [address] [id number] [place] [address] Apr, [facility] [place] [facility] [address] [id number] [place] [address] Apr, [facility] [place] [facility] [address] [id number] [place] [address] Apr, [facility] [place] [facility] [address] [id number] [place] [address] Apr, [facility] [place] [facility] [address] [id number] [place] [address] March, [facility] [place] [facility] [address] [id number] [place] [address] March, [facility] [place] [facility] [address] [id number] [place] [address] March, [facility] [place] [facility] [address] [id number] [place] [address] March, [facility] [place] [facility] [address] [id number] [place] [address] Feb, [facility] [place] [facility] [address] [id number] [place] [address] Feb, [facility] [place] [facility] [address] [id number] [place] [address] Feb, [facility] [place] [facility] [address] [id number] [place] [address] Feb, [facility] [place] [facility] [address] [id number] [place] [address] Feb, [facility] [place] [facility] [address] [id number] [place] [address] Feb, [facility] [place] [facility] [address] [id number] [place] [address] Feb, [facility] [place] [facility] [address] [id number] [place] [address] Feb, [facility] [place] [facility] [address] [id number] [place] [address] Feb, [facility] [place] [facility] [address] [id number] [place] [address] Feb, [facility] [place] [facility] [address] [id number] [place] [address] Feb, [facility] [place] [facility] [address] [id number] [place] [address] Feb, [facility] [place] [facility] [address] [id number] [place] [address] Feb, [facility] [place] [facility] [address] [id number] [place] [address] Feb, [facility] [place] [facility] [address] [id number] [place] [address] Feb, [facility] [place] [facility] [address] [id number] [place] [address] Feb, [facility] [place] [facility] [address] [id number] [place] [address] Jan, [facility] [place] [facility] [address] [id number] [place] [address] Jan, [facility] [place] [facility] [address] [id number] [place] [address] Dec, [facility] [place] [facility] [address] [id number] [place] [address] Dec, [facility] [place] [facility] [address] [id number] [place] [address] Dec, [facility] [place] [facility] [address] [id number] [place] [address] Dec, [facility] [place] [facility] [address] [id number] [place] [address] Dec, [facility] [place] [facility] [address] [id number] [place] [address] Dec, [facility] [place] [facility] [address] [id number] [place] [address] Dec, [facility] [place] [facility] [address] [facility] [place] [id number] [place] [address] Nov, [facility] [place] [facility] [address] [facility] [place] [id number] [place] [address] Nov, [facility] [place] [facility] [address] [id number] [place] [address] Nov, [facility] [place] [facility] [address] [id number] [place] [address] Nov, [facility] [place] [facility] [address] [facility] [place] [id number] [place] [address] Oct, [facility] [place] [facility] [address] [facility] [place] [id number] [place] [address] Oct, [facility] [place] [facility] [address] [id number] [place] [address] Sep, [facility] [place] [facility] [address] [id number] [place] [address] Sep, [facility] [place] [facility] [address] [id number] [place] [address] Aug, [facility] [place] [facility] [address] [id number] [place] [address] Aug, [facility] [place] [facility] [address] [id number] [place] [address] Aug, [facility] [place] [facility] [address] [id number] [place] [address] Aug, [facility] [place] [facility] [address] [id number] [place] [address] Aug, [facility] [place] [facility] [address] [id number] [place] [address] Aug, [facility] [place] [facility] [address] [id number] [place] [address] Aug, [facility] [place] [facility] [address] [id number], [place] [address] Aug, [facility] [place] [facility] [address] [id number], [place] [address] Aug, [facility] [place] [facility] [address] [id number], [place] [address] Aug, [facility] [place] [facility] [address] [id number] [place] [address] Jun, [facility] [place] [facility] [address] [id number], [place] [address] Jun, [facility] [place] [facility] [address] [id number], [place] [address] May, [facility] [place] [facility] [address] [id number] [place] [address] 07 Apr, 2013 [facility] [address] [id number] [place] [address] 07 Apr, 2013 [facility] [place] [facility] [address] [id number] [place] [address] March, [facility] [place] [facility] [address] [id number] [place] [address] Feb, [facility] [place] [facility] [address] [id number] [place] [address] Jan, [facility] [place] [facility] [address] [id number] [place] [address] Jan, [facility] [place] [facility] [address] [id number] [place] [address] Dec, [facility] [place] [facility] [address] [id number] [place] [address] Dec, [facility] [place] [facility] [address] [id number] [place] [address] Nov, [facility] [place] [facility] [address] [id number] [place] [address] Jul, [facility] [place] [facility] [address] [id number] [place] [address] Jul, [facility] [place] [facility] [address] [id number] [place] [address] Jun, [facility] [place] [facility] [address] [id number] [place] [address] May, [facility] [place] [facility] [address] [id number] [place] [address] May, [facility] [place] [facility] [address] [id number] [place] [address] May, [facility] [place] [facility] [address] [id number] [place] [address] May, [facility] [address] [facility] [id number], [place] [address] May, [facility] [address] [facility] [place] [id number], [place] [address] May, [facility] [address] [facility] [place] [id number], [place] [address] May, [facility] [id number] [address] Apr, [facility] [address] [facility] [id number], [place] [address] Apr, [facility] [address] [id number] [address] Apr, [facility] [address] [id number], [place] [address] Apr, IMMUNIZATIONS No Known Immunizations SOCIAL HISTORY Never Assessed REASON FOR VISIT [facility] [place] PLAN OF CARE VITAL SIGNS MEDICATIONS Medication Instructions Dosage Frequency Start Date End Date Duration Status Cipro 500 mg 1 tablet by Oral route every 12 hours for 10 day(s) May, Active Lipitor 40 mg 1 tablet by Oral route 1 time per day Dec, Active Testosterone Cypionate 100 mg/mL 100 Mg by Oral route every other week 1 1/2 in in thigh Jan, Active Symbicort 160-4.5 mcg/actuation inhale 2 puffs by inhalation route 2 times per day in the morning and evening Nov, Active Hydrocodone-Acetaminophen 10-325 mg 1 tablet by Oral route 3 times per day PRN Jan, Active RESULTS No Results PROCEDURES No Known procedures INSTRUCTIONS MEDICATIONS ADMINISTERED No Known Medications MEDICAL (GENERAL) HISTORY Type Description Date Medical History hypogonadism Medical History hyperlipidemia Medical History pre-diabetic Medical History chronic pain Medical History COPD Medical History [place] Surgical History skin cancer 2000 Hospitalization History surgery Hospitalization History MRSA infection 05/2015 Hospitalization History pneumonia
--- OUTSIDE RECORDS SUMMARY | 2019-07-08 00:21 | XMS REPORT ---
Author Author JOSÉ LUIS RODRÍGUEZ Organization [facility] Address [address] [place] [address] Care Team Providers Care Towel Sewer Name Role Phone JOSÉ LUIS RODRÍGUEZ Unavailable PROBLEMS Type Condition ICD9-CM Code YCS11-YT Code Onset Dates Condition Status SNOMED Code Problem Hypertriglyceridemia E78.1 Active 478019602 Problem Hyperinsulinemia E16.1 Active 64269010 Problem Family history of diabetes mellitus Z83.3 Active 859958862 Problem History of MRSA infection Z86.14 Active 129593674 Problem Chronic pain G89.29 Active 89224336 Problem Dysthymia F34.1 Active 50079147 Problem Insomnia, unspecified type G47.00 Active 498597025 Problem Chronic obstructive pulmonary disease, unspecified COPD type J44.9 Active 81728404 Problem Osteoarthritis M19.90 Active 684103548 Problem Primary insomnia F51.01 Active 0164946 Problem Essential hypertension I10 Active 85979370 ALLERGIES No Known Allergies ENCOUNTERS Encounter Location Date Diagnosis [place] [id number] [address] Nov, [place] [address] [address] Nov, [place] [id number] [place] [address] Oct, Chronic pain G89.29 and Insomnia, unspecified type G47.00 [place] [id number] [place] [address] Oct, [place] [id number] [place] [address] Oct, Pneumonia of left lower lobe due to infectious organism J18.1 and Chronic obstructive pulmonary disease, unspecified COPD type J44.9 [place] [id number] [place] [address] Oct, Hypertriglyceridemia E78.1 [place] [address] [address] Sep, Hypertriglyceridemia E78.1 [place] [address] [address] Sep, Chronic pain G89.29 and Insomnia, unspecified type G47.00 [place] [id number] [place] [address] Aug, Seborrheic keratoses L82.1 and Sebaceous cyst L72.3 [place] [address] [address] 16 Aug, 2018 Chronic pain G89.29 and Insomnia, unspecified type G47.00 [place] [address] [address] 18 Jul, 2018 Seborrheic keratoses L82.1 [place] [id number] [place] [address] Jul, Chronic pain G89.29 and Insomnia, unspecified type G47.00 [place] [id number] [place] [address] Jun, Chronic pain G89.29 and Insomnia, unspecified type G47.00 [place] [id number] [place] [address] Jun, Seborrheic keratoses L82.1 [place] [id number] [place] [address] May, Dysthymia F34.1 ; Chronic obstructive pulmonary disease, unspecified COPD type J44.9 ; Chronic pain G89.29 ; Insomnia, unspecified type G47.00 ; BMI 40.0-44.9, adult Z68.41 and Other seborrheic keratosis L82.1 [place] [id number] [place] [address] May, Chronic pain G89.29 and Insomnia, unspecified type G47.00 [place] [id number] [place] [address] Apr, Hypertriglyceridemia E78.1 [place] [id number] [place] [address] Apr, Chronic pain G89.29 and Insomnia, unspecified type G47.00 [place] [id number] [place] [address] 15 Apr, 2018 Hyperinsulinemia E16.1 ; Hypertriglyceridemia E78.1 and Fatigue, unspecified type R53.83 [place] [id number] [place] [address] Apr, Hyperinsulinemia E16.1 ; Chronic pain G89.29 ; Primary insomnia F51.01 ; Chronic obstructive pulmonary disease, unspecified COPD type J44.9 ; Dysthymia F34.1 ; Hypertriglyceridemia E78.1 ; Fatigue, unspecified type R53.83 and Rash R21 [place] [id number] [place] [address] March, Chronic pain G89.29 and Insomnia, unspecified type G47.00 [place] [id number] [place] [address] March, Insomnia, unspecified type G47.00 [place] [id number] [place] [address] Feb, Chronic pain G89.29 [place] [id number] [place] [address] Feb, Chronic pain G89.29 [place] [id number] [place] [address] Jan, Chronic pain G89.29 [place] [address] [address] Dec, Chronic pain G89.29 [facility] [id number] [place] [address] Nov, Chronic pain G89.29 and Insomnia, unspecified type G47.00 [place] [id number] [place] [address] Oct, Insomnia, unspecified type G47.00 ; Chronic pain G89.29 and Colon cancer screening Z12.11 [place] [id number] [place] [address] Oct, Chronic pain G89.29 [place] [id number] [place] [address] Sep, Chronic pain G89.29 and Insomnia, unspecified type G47.00 [place] [id number] [place] [address] Sep, Chronic pain G89.29 [place] [id number] [place] [address] Sep, [place] [id number] [place] [address] Aug, Medicare welcome exam Z00.00 ; Encounter for immunization Z23 ; Colon cancer screening Z12.11 and Encounter for screening for lung cancer Z12.2 [place] [id number] [place] [address] Aug, [place] [id number] [place] [address] Aug, Chronic pain G89.29 and Insomnia, unspecified type G47.00 [place] [id number] [place] [address] Aug, Hypertriglyceridemia E78.1 [place] [address] [address] Jul, Chronic pain G89.29 and Insomnia, unspecified type G47.00 [facility] [id number] [place] [address] Jun, Hypertriglyceridemia E78.1 [facility] [id number] [place] [address] Jun, Chronic pain G89.29 and Insomnia, unspecified type G47.00 [facility] [address] [address] Jun, [facility] [address] [address] Jun, [place] [address] [address] May, Hyperinsulinemia E16.1 ; Chronic pain G89.29 ; Insomnia, unspecified type G47.00 and Rash R21 [place] [address] [address] May, Chronic pain G89.29 [place] [address] [address] May, Hypertriglyceridemia E78.1 [place] [address] [address] Apr, Chronic pain G89.29 [place] [id number] [place] [address] Apr, Chronic pain G89.29 ; Hyperinsulinemia E16.1 ; Hypertriglyceridemia E78.1 and Primary insomnia F51.01 [facility] [id number] [place] [address] March, Chronic pain G89.29 [place] [address] [address] March, Chronic pain G89.29 [facility] [id number] [place] [address] Feb, [facility] [id number] [place] [address] 04 Feb, 2017 Chronic pain G89.29 [facility] [id number] [place] [address] Jan, Chronic pain G89.29 [facility] [id number] [place] [address] 07 Dec, 2016 Chronic pain G89.29 [facility] [address] [address] Dec, [facility] [address] [address] Nov, Hypertriglyceridemia E78.1 [facility] [id number] [place] [address] Nov, [facility] [address] [address] Nov, Chronic pain G89.29 ; Hypertriglyceridemia E78.1 and Chronic obstructive pulmonary disease, unspecified COPD type J44.9 [facility] [id number] [place] [address] Nov, Chronic pain G89.29 [facility] [id number] [place] [address] Oct, Chronic pain G89.29 [facility] [id number] [place] [address] Oct, [facility] [id number] [place] [address] 29 Sep, 2016 Chronic obstructive pulmonary disease, unspecified COPD type J44.9 and Abscess L02.91 [facility] [id number] [place] [address] 16 Sep, 2016 Chronic pain G89.29 [facility] [id number] [place] [address] Aug, Chronic pain G89.29 [facility] [id number] [place] [address] Aug, Chronic pain G89.29 [facility] [id number] [place] [address] Aug, Cutaneous horn L85.8 and Skin tag L91.8 [facility] [address] [address] Jul, [facility] [address] [address] Jul, Hypertriglyceridemia E78.1 [place] [address] [address] Jul, Other chronic pain G89.29 ; Essential hypertension I10 ; Hyperinsulinemia E16.1 ; Hyperlipidemia, unspecified hyperlipidemia type E78.5 and Cutaneous horn L85.8 [facility] [id number] [place] [address] Jun, Chronic pain G89.29 [facility] [id number] [place] [address] May, Chronic pain G89.29 [facility] [id number] [place] [address] May, [place] [id number] [place] [address] May, Skin infection L08.9 [facility] [id number] [place] [address] Apr, Chronic pain G89.29 [facility] [address] [address] Apr, [facility] [id number] [place] [address] Apr, Chronic pain G89.29 [facility] [address] [address] March, [facility] [address] [place] [address] Feb, Chronic pain G89.29 ; Hyperinsulinemia E16.1 and Hypertriglyceridemia E78.1 [facility] [id number] [place] [address] Feb, [facility] [address] [address] Jan, [facility] [id number] [place] [address] Dec, [facility] [address] [address] Nov, [facility] [id number] [place] [address] Oct, [facility] [id number] [place] [address] Oct, Hyperinsulinemia E16.1 [facility] [id number] [place] [address] Oct, Other chronic pain G89.29 ; Chronic obstructive pulmonary disease, unspecified COPD type J44.9 ; Insomnia, unspecified type G47.00 ; Hyperinsulinemia E16.1 and Essential hypertension I10 [facility] [id number] [place] [address] Sep, [facility] [id number] [place] [address] Aug, [facility] [id number] [place] [address] 30 Jul, 2015 [facility] [id number] [place] [address] 14 Jul, 2015 [facility] [id number] [place] [address] 14 Jul, 2015 Overweight 278.02 and Hyperinsulinemia 251.1 [facility] [id number] [place] [address] Jul, [facility] [address] [address] Jun, Skin tags, multiple acquired 701.9 [facility] [address] [address] Jun, Other chronic pain 338.29 ; Erectile dysfunction 607.84 ; Hyperinsulinemia 251.1 and Hypertension 401.9 [facility] [address] [address] Jun, [facility] [address] [address] Jun, [facility] [address] [address] Jun, [facility] [address] [address] May, Pure hyperglyceridemia 272.1 [facility] [id number] [place] [address] May, Pure hyperglyceridemia 272.1 [facility] [id number] [place] [address] May, [facility] [id number] [place] [address] May, Overgrown toenails 703.8 ; Seborrheic keratosis 702.19 ; Skin tag 701.9 ; Warts, genital 078.11 ; Cramps, extremity 729.82 ; Increased appetite 783.6 and Heat rash 705.1 [facility] [id number] [place] [address] May, [facility] [id number] [place] [address] Apr, [facility] [address] [place] [address] 08 Apr, 2015 [facility] [place] [facility] [address] [id number] [place] [address] 14 Mar, 2015 [facility] [place] [facility] [address] [id number] [place] [address] 14 Feb, 2015 [facility] [place] [facility] [address] [id number] [place] [address] 13 Feb, 2015 [facility] [place] [facility] [address] [id number] [place] [address] 27 Jan, 2015 [facility] [place] [facility] [address] [id number] [place] [address] 27 Jan, 2015 [facility] [place] [facility] [address] [id number] [place] [address] 27 Jan, 2015 [facility] [place] [facility] [address] [id number] [place] [address] 27 Jan, 2015 [facility] [place] [facility] [address] [id number] [place] [address] 19 Jan, 2015 [facility] [place] [facility] [address] [id number] [place] [address] 19 Jan, 2015 [facility] [place] [facility] [address] [id number] [place] [address] 16 Jan, 2015 [facility] [place] [facility] [address] [id number] [place] [address] 16 Jan, 2015 [facility] [place] [facility] [address] [id number] [place] [address] 10 Jan, 2015 [facility] [place] [facility] [address] [id number] [place] [address] 10 Jan, 2015 [facility] [place] [facility] [address] [id number] [place] [address] 05 Jan, 2015 [facility] [place] [facility] [address] [id number] [place] [address] Jan, [facility] [place] [facility] [address] [id number] [place] [address] Dec, 2014 [facility] [place] [facility] [address] [id number] [place] [address] Dec, 2014 [facility] [place] [facility] [address] [id number] [place] [address] Dec, 2014 [facility] [place] [facility] [address] [id number] [place] [address] Dec, 2014 [facility] [place] [facility] [address] [id number] [place] [address] Dec, [facility] [place] [facility] [address] [id number] [place] [address] Dec, [facility] [place] [facility] [address] [id number] [place] [address] Dec, [facility] [place] [facility] [address] [id number] [place] [address] Dec, [facility] [place] [facility] [address] [id number] [place] [address] Nov, [facility] [place] [facility] [address] [id number] [place] [address] Nov, [facility] [place] [facility] [address] [id number] [place] [address] Nov, [facility] [place] [facility] [address] [id number] [place] [address] Nov, [facility] [place] [facility] [address] [id number] [place] [address] Nov, [facility] [place] [facility] [address] [id number] [place] [address] Nov, [facility] [place] [facility] [address] [id number] [place] [address] Nov, [facility] [place] [facility] [address] [id number] [place] [address] Nov, [facility] [place] [facility] [address] [id number] [place] [address] Oct, [facility] [place] [facility] [address] [id number] [place] [address] Oct, [facility] [place] [facility] [address] [id number] [place] [address] Sep, [facility] [place] [facility] [address] [id number] [place] [address] Sep, [facility] [place] [facility] [address] [id number] [place] [address] Sep, [facility] [place] [facility] [address] [id number] [place] [address] Sep, [facility] [place] [facility] [address] [id number] [place] [address] Aug, [facility] [place] [facility] [address] [id number] [place] [address] Aug, [facility] [place] [facility] [address] [id number] [place] [address] Aug, [facility] [place] [facility] [address] [facility] [id number] [place] [address] Aug, [facility] [place] [facility] [address] [id number] [place] [address] Aug, [facility] [place] [facility] [address] [id number] [place] [address] Aug, [facility] [place] [facility] [address] [id number] [place] [address] Aug, [facility] [place] [facility] [address] [id number] [place] [address] Aug, [facility] [place] [facility] [address] [id number] [place] [address] Jul, [facility] [place] [facility] [address] [id number] [place] [address] Jul, [facility] [place] [facility] [address] [id number] [place] [address] Jul, [facility] [place] [facility] [address] [id number] [place] [address] Jul, [facility] [place] [facility] [address] [id number] [place] [address] Jul, [facility] [place] [facility] [address] [id number] [place] [address] Jun, [facility] [place] [facility] [address] [id number] [place] [address] Jun, [facility] [place] [facility] [address] [id number] [place] [address] Jun, [facility] [place] [facility] [address] [id number] [place] [address] Jun, [facility] [place] [facility] [address] [id number] [place] [address] Jun, [facility] [place] [facility] [address] [id number] [place] [address] Jun, [facility] [place] [facility] [address] [id number] [place] [address] May, [facility] [place] [facility] [address] [id number] [place] [address] May, [facility] [place] [facility] [address] [id number] [place] [address] May, [facility] [place] [facility] [address] [id number] [place] [address] May, [facility] [place] [facility] [address] [id number] [place] [address] Apr, [facility] [place] [facility] [address] [id number] [address] Apr, [facility] [place] [facility] [address] [id number] [place] [address] Apr, [facility] [place] [facility] [address] [id number] [place] [address] Apr, [facility] [place] [facility] [address] [id number] [place] [address] Apr, [facility] [place] [facility] [address] [id number] [place] [address] Apr, [facility] [place] [facility] [address] [id number] [place] [address] March, [facility] [place] [facility] [address] [id number] [place] [address] March, [facility] [place] [facility] [address] [id number] [place] [address] March, [facility] [place] [facility] [address] [id number] [place] [address] March, [facility] [place] [facility] [address] [id number] [place] [address] Feb, [facility] [place] [facility] [address] [id number] [place] [address] Feb, [facility] [place] [facility] [address] [id number] [place] [address] Feb, [facility] [place] [facility] [address] [id number] [place] [address] Feb, [facility] [place] [facility] [address] [id number] [place] [address] Feb, [facility] [place] [facility] [address] [id number] [place] [address] Feb, [facility] [place] [facility] [address] [id number] [place] [address] Feb, [facility] [place] [facility] [address] [id number] [place] [address] Feb, [facility] [place] [facility] [address] [id number] [place] [address] Feb, [facility] [place] [facility] [address] [id number] [place] [address] Feb, [facility] [place] [facility] [address] [id number] [place] [address] Feb, [facility] [place] [facility] [address] [id number] [place] [address] Feb, [facility] [place] [facility] [address] [id number] [place] [address] Feb, [facility] [place] [facility] [address] [id number] [place] [address] Feb, [facility] [place] [facility] [address] [id number] [place] [address] Feb, [facility] [place] [facility] [address] [id number] [place] [address] Feb, [facility] [place] [facility] [address] [id number] [place] [address] Jan, [facility] [place] [facility] [address] [id number] [place] [address] Jan, [facility] [place] [facility] [address] [id number] [place] [address] Dec, [facility] [place] [facility] [address] [id number] [place] [address] Dec, [facility] [place] [facility] [address] [id number] [place] [address] Dec, [facility] [place] [facility] [address] [id number] [place] [address] Dec, [facility] [place] [facility] [address] [id number] [place] [address] Dec, [facility] [place] [facility] [address] [id number] [place] [address] Dec, [facility] [place] [facility] [address] [id number] [place] [address] Dec, [facility] [place] [facility] [address] [facility] [id number] [place] [address] Nov, [facility] [place] [facility] [address] [id number] [place] [address] Nov, [facility] [place] [facility] [address] [id number] [place] [address] Nov, [facility] [place] [facility] [address] [id number] [place] [address] Nov, [facility] [place] [facility] [address] [facility] [facility] [id number] [place] [address] Oct, [facility] [place] [facility] [address] [id number] [place] [address] Oct, [facility] [place] [facility] [address] [facility] [id number] [place] [address] Sep, [facility] [place] [facility] [address] [facility] [id number] [place] [address] Sep, [facility] [place] [facility] [address] [id number], [place] [address] Aug, [facility] [place] [facility] [address] [id number], [place] [address] Aug, [facility] [place] [facility] [address] [id number] [place] [address] Aug, [facility] [place] [facility] [address] [id number] [place] [address] Aug, [facility] [place] [facility] [address] [facility] [id number] [place] [address] Aug, [facility] [place] [facility] [address] [id number] [place] [address] Aug, [facility] [address] [id number] [place] [address] Aug, [facility] [place] [facility] [address] [id number] [place] [address] Aug, [facility] [place] [facility] [address] [id number] [place] [address] Aug, [facility] [place] [facility] [address] [id number] [place] [address] Aug, [facility] [place] [facility] [address] [id number] [place] [address] Jun, [facility] [place] [facility] [address] [id number] [place] [address] Jun, [facility] [place] [facility] [address] [id number] [place] [address] May, [facility] [place] [facility] [address] [id number] [place] [address] Apr, [facility] [place] [facility] [address] [id number] [place] [address] Apr, [facility] [place] [facility] [address] [id number] [place] [address] March, [facility] [place] [facility] [address] [id number] [place] [address] Feb, [facility] [place] [facility] [address] [id number] [place] [address] Jan, [facility] [place] [facility] [address] [id number] [place] [address] Jan, [facility] [place] [facility] [address] [id number] [place] [address] Dec, [facility] [place] [facility] [address] [id number] [place] [address] Dec[facility] [address] [facility] [id number] [place] [address] Nov, [facility] [address] [facility] [id number] [place] [address] Jul, [facility] [address] [facility] [id number] [place] [address] Jul, [facility] [address] [facility] [id number] [place] [address] Jun, [facility] [address] [facility] [id number] [place] [address] May, [facility] [address] [facility] [id number] [place] [address] May, [facility] [address] [facility] [id number] [place] [address] May, [facility] [address] [id number], [place] [address] May, [facility] [address] [id number], [place] [address] May, [facility] [address] [id number], [place] [address] May, [facility] [address] [id number], [place] [address] May, [facility] [address] [facility] [id number], [place] [address] Apr, [facility] [address] [facility] [id number], [place] [address] Apr, [facility] [address] [id number], [place] [address] Apr, [facility] [address] [id number], [place] [address] Apr, IMMUNIZATIONS No Known Immunizations SOCIAL HISTORY Never Assessed REASON FOR VISIT [facility] follow up-EPI ross, pt was in the hospital with pneumonia was release fro m the hospital thursday11/01/2018. PLAN OF CARE Activity Details Follow Up 4 Weeks Reason:pneunmonia VITAL SIGNS Height 66 in 2018-11-03 Weight 248.5 lbs 2018-11-03 Temperature 98.0 degrees Fahrenheit 2018-11-03 Heart Rate 98 bpm 2018-11-03 Respiratory Rate 20 2018-11-03 Oximetry on room air:91 % 2018-11-03 BMI 40.10 kg/m2 2018-11-03 Blood pressure systolic 140 mmHg 2018-11-03 Blood pressure diastolic 78 mmHg 2018-11-03 MEDICATIONS Medication Instructions Dosage Frequency Start Date End Date Duration Status Ventolin HFA 108 (90 Base) MCG/ACT Inhalation every 6 hrs 2 puffs as needed 6h Apr, Active Breo Ellipta 200-25 MCG/INH Inhalation Once a day 1 puff 24h Oct, Active Oxygen N/A 1 1/2 l at hs Once a day as directed 24h Oct, Active Viagra 100 MG Orally Once a day prn 1 tablet as needed 10 Active Lovastatin 40 mg Orally Once a day 1 tablet with the evening meal 24h 30 Active Ambien 10 MG Orally Once a day 1 tablet at bedtime 24h May, 28 days Active MetFORMIN HCl ER 500 mg Orally 2 times a day 2 tablet 12h Apr, Active Hydrocodone-Acetaminophen 10-325 MG Orally 4 times [...]
--- OUTSIDE RECORDS SUMMARY | 2019-07-08 00:22 | XMS REPORT ---
Author Author JOSÉ LUIS RODRÍGUEZ Organization [facility] Address [address] [place] [address] Care Team Providers Care Supervisor Car Installations Name Role Phone JOSÉ LUIS RODRÍGUEZ Unavailable PROBLEMS Type Condition ICD9-CM Code MVK64-ET Code Onset Dates Condition Status SNOMED Code Problem Hypertriglyceridemia E78.1 Active 567251760 Problem Hyperinsulinemia E16.1 Active 19494895 Problem Family history of diabetes mellitus Z83.3 Active 121003697 Problem History of MRSA infection Z86.14 Active 077166178 Problem Chronic pain G89.29 Active 18061991 Problem Dysthymia F34.1 Active 38235458 Problem Insomnia, unspecified type G47.00 Active 424668531 Problem Chronic obstructive pulmonary disease, unspecified COPD type J44.9 Active 44378333 Problem Osteoarthritis M19.90 Active 896392670 Problem Primary insomnia F51.01 Active 9331976 Problem Essential hypertension I10 Active 73835209 ALLERGIES No Information ENCOUNTERS Encounter Location Date Diagnosis [place] [id number] [address] Nov, [place] [id number] [place] [address] Nov, [place] [id number] [place] [address] Oct, Chronic pain G89.29 and Insomnia, unspecified type G47.00 [place] [id number] [place] [address] Oct, [place] [id number] [place] [address] Oct, Pneumonia of left lower lobe due to infectious organism J18.1 and Chronic obstructive pulmonary disease, unspecified COPD type J44.9 [place] [address] [id number] [place] [address] Oct, Hypertriglyceridemia E78.1 [place] [address] [address] Sep, Hypertriglyceridemia E78.1 [place] [address] [address] Sep, Chronic pain G89.29 and Insomnia, unspecified type G47.00 [place] [address] [place] [id number] [place] [address] Aug, Seborrheic keratoses L82.1 and Sebaceous cyst L72.3 [place] [address] [id number] [place] [address] 16 Aug, 2018 Chronic pain G89.29 and Insomnia, unspecified type G47.00 [place] [address] [id number] [place] [address] 18 Jul, 2018 Seborrheic keratoses L82.1 [place] [address] [id number] [place] [address] Jul, Chronic pain G89.29 and Insomnia, unspecified type G47.00 [place] [address] [id number] [place] [address] Jun, Chronic pain G89.29 and Insomnia, unspecified type G47.00 [place] [address] [id number] [place] [address] Jun, Seborrheic keratoses L82.1 [place] [address] [id number] [place] [address] May, Dysthymia F34.1 ; Chronic obstructive pulmonary disease, unspecified COPD type J44.9 ; Chronic pain G89.29 ; Insomnia, unspecified type G47.00 ; BMI 40.0-44.9, adult Z68.41 and Other seborrheic keratosis L82.1 [place] [address] [id number] [place] [address] May, Chronic pain G89.29 and Insomnia, unspecified type G47.00 [place] [id number] [place] [address] Apr, Hypertriglyceridemia E78.1 [place] [address] [id number] [place] [address] Apr, Chronic pain G89.29 and Insomnia, unspecified type G47.00 [place] [id number] [place] [address] 15 Apr, 2018 Hyperinsulinemia E16.1 ; Hypertriglyceridemia E78.1 and Fatigue, unspecified type R53.83 [place] [address] [id number] [place] [address] 13 Apr, 2018 Hyperinsulinemia E16.1 ; Chronic pain G89.29 ; Primary insomnia F51.01 ; Chronic obstructive pulmonary disease, unspecified COPD type J44.9 ; Dysthymia F34.1 ; Hypertriglyceridemia E78.1 ; Fatigue, unspecified type R53.83 and Rash R21 [place] [address] [id number] [place] [address] March, Chronic pain G89.29 and Insomnia, unspecified type G47.00 [place] [address] [id number] [place] [address] March, Insomnia, unspecified type G47.00 [place] [address] [id number] [place] [address] Feb, Chronic pain G89.29 [place] [address] [id number] [place] [address] Feb, Chronic pain G89.29 [place] [address] [id number] [place] [address] Jan, Chronic pain G89.29 [place] [address] [address] Dec, Chronic pain G89.29 [facility] [id number] [place] [address] Nov, Chronic pain G89.29 and Insomnia, unspecified type G47.00 [place] [id number] [id number] [place] [address] Oct, Insomnia, unspecified type G47.00 ; Chronic pain G89.29 and Colon cancer screening Z12.11 [place] [address] [id number] [place] [address] Oct, Chronic pain G89.29 [place] [address] [id number] [place] [address] Sep, Chronic pain G89.29 and Insomnia, unspecified type G47.00 [place] [id number] [place] [address] Sep, Chronic pain G89.29 [place] [address] [id number] [place] [address] Sep, [place] [address] [place] [id number] [place] [address] Aug, Medicare welcome exam Z00.00 ; Encounter for immunization Z23 ; Colon cancer screening Z12.11 and Encounter for screening for lung cancer Z12.2 [place] [address] [id number] [place] [address] Aug, [place] [address] [place] [id number] [place] [address] Aug, Chronic pain G89.29 and Insomnia, unspecified type G47.00 [place] [address] [id number] [place] [address] Aug, Hypertriglyceridemia E78.1 [place] [id number] [address] Jul, Chronic pain G89.29 and Insomnia, unspecified type G47.00 [facility] [id number] [place] [address] Jun, Hypertriglyceridemia E78.1 [facility] [id number] [place] [address] Jun, Chronic pain G89.29 and Insomnia, unspecified type G47.00 [facility] [address] [id number] [place] [address] Jun, [facility] [id number] [place] [address] Jun, [facility] [address] [address] May, Hyperinsulinemia E16.1 ; Chronic pain G89.29 ; Insomnia, unspecified type G47.00 and Rash R21 [place] [address] [address] May, Chronic pain G89.29 [facility] [address] [id number] [place] [address] May, Hypertriglyceridemia E78.1 [place] [address] [id number] [place] [address] Apr, Chronic pain G89.29 [facility] [address] [id number] [place] [address] Apr, Chronic pain G89.29 ; Hyperinsulinemia E16.1 ; Hypertriglyceridemia E78.1 and Primary insomnia F51.01 [facility] [id number] [place] [address] March, Chronic pain G89.29 [facility] [address] [address] March, Chronic pain G89.29 [facility] [address] [id number] [place] [address] Feb, [facility] [id number] [place] [address] 04 Feb, 2017 Chronic pain G89.29 [facility] [id number] [place] [address] Jan, Chronic pain G89.29 [facility] [id number] [place] [address] 07 Dec, 2016 Chronic pain G89.29 [facility] [id number] [place] [address] Dec, [facility] [id number] [place] [address] Nov, Hypertriglyceridemia E78.1 [facility] [id number] [place] [address] Nov, [facility] [address] [id number] [place] [address] Nov, Chronic pain G89.29 ; Hypertriglyceridemia E78.1 and Chronic obstructive pulmonary disease, unspecified COPD type J44.9 [facility] [id number] [place] [address] Nov, Chronic pain G89.29 [facility] [id number] [place] [address] Oct, Chronic pain G89.29 [facility] [id number] [place] [address] 05 Oct, 2016 [facility] [id number] [place] [address] 29 Sep, 2016 Chronic obstructive pulmonary disease, unspecified COPD type J44.9 and Abscess L02.91 [facility] [id number] [place] [address] 16 Sep, 2016 Chronic pain G89.29 [facility] [id number] [place] [address] Aug, Chronic pain G89.29 [facility] [id number] [place] [address] Aug, Chronic pain G89.29 [facility] [address] [address] Aug, Cutaneous horn L85.8 and Skin tag L91.8 [facility] [address] [address] Jul, [facility] [address] [address] Jul, Hypertriglyceridemia E78.1 [place] [address] [address] 07 Jul, 2016 Other chronic pain G89.29 ; Essential hypertension I10 ; Hyperinsulinemia E16.1 ; Hyperlipidemia, unspecified hyperlipidemia type E78.5 and Cutaneous horn L85.8 [place] [address] [id number] [place] [address] Jun, Chronic pain G89.29 [facility] [address] [address] May, Chronic pain G89.29 [facility] [id number] [place] [address] May, [place] [id number] [place] [address] May, Skin infection L08.9 [facility] [id number] [place] [address] Apr, Chronic pain G89.29 [facility] [address] [address] Apr, [facility] [id number] [place] [address] Apr, Chronic pain G89.29 [facility] [address] [address] March, [facility] [id number] [place] [address] Feb, Chronic pain G89.29 ; Hyperinsulinemia E16.1 and Hypertriglyceridemia E78.1 [facility] [id number] [place] [address] Feb, [facility] [address] [address] Jan, [facility] [id number] [place] [address] Dec, [facility] [address] [address] Nov, [facility] [id number] [place] [address] Oct, [facility] [address] [address] Oct, Hyperinsulinemia E16.1 [facility] [id number] [place] [address] Oct, Other chronic pain G89.29 ; Chronic obstructive pulmonary disease, unspecified COPD type J44.9 ; Insomnia, unspecified type G47.00 ; Hyperinsulinemia E16.1 and Essential hypertension I10 [facility] [id number] [place] [address] Sep, [facility] [id number] [place] [address] Aug, [facility] [id number] [place] [address] 30 Jul, 2015 [facility] [id number] [place] [address] 14 Jul, 2015 [facility] [id number] [place] [address] 14 Jul, 2015 Overweight 278.02 and Hyperinsulinemia 251.1 [facility] [id number] [place] [address] Jul, [facility] [address] [address] Jun, Skin tags, multiple acquired 701.9 [facility] [id number] [place] [address] Jun, Other chronic pain 338.29 ; Erectile dysfunction 607.84 ; Hyperinsulinemia 251.1 and Hypertension 401.9 [facility] [address] [address] Jun, [facility] [address] [address] Jun, [facility] [address] [id number] [place] [address] Jun, [facility] [address] [address] May, Pure hyperglyceridemia 272.1 [facility] [id number] [place] [address] May, Pure hyperglyceridemia 272.1 [facility] [id number] [place] [address] May, [facility] [id number] [place] [address] May, Overgrown toenails 703.8 ; Seborrheic keratosis 702.19 ; Skin tag 701.9 ; Warts, genital 078.11 ; Cramps, extremity 729.82 ; Increased appetite 783.6 and Heat rash 705.1 [facility] [id number] [place] [address] May, [facility] [id number] [place] [address] Apr, [facility] [address] [place] [id number] [place] [address] 08 Apr, 2015 [facility] [address] [id number] [place] [address] 14 Mar, 2015 [facility] [place] [facility] [address] [id number] [place] [address] 14 Feb, 2015 [facility] [place] [facility] [address] [id number] [place] [address] 13 Feb, 2015 [facility] [place] [facility] [address] [id number] [place] [address] 27 Jan, 2015 [facility] [place] [facility] [address] [id number] [place] [address] 27 Jan, 2015 [facility] [place] [facility] [address] [id number] [place] [address] 27 Jan, 2015 [facility] [place] [facility] [address] [id number] [place] [address] 27 Jan, 2015 [facility] [place] [facility] [address] [id number] [place] [address] 19 Jan, 2015 [facility] [place] [facility] [address] [id number] [place] [address] 19 Jan, 2015 [facility] [place] [facility] [address] [id number] [place] [address] 16 Jan, 2015 [facility] [place] [facility] [address] [id number] [place] [address] 16 Jan, 2015 [facility] [place] [facility] [address] [id number] [place] [address] 10 Jan, 2015 [facility] [place] [facility] [address] [id number] [place] [address] 10 Jan, 2015 [facility] [place] [facility] [address] [id number] [place] [address] 05 Jan, 2015 [facility] [place] [facility] [address] [id number] [place] [address] Jan, [facility] [place] [facility] [address] [id number] [place] [address] Dec, 2014 [facility] [place] [facility] [address] [id number] [place] [address] Dec, 2014 [facility] [place] [facility] [address] [id number] [place] [address] Dec, 2014 [facility] [place] [facility] [address] [id number] [place] [address] Dec, 2014 [facility] [place] [facility] [address] [id number] [place] [address] Dec, [facility] [place] [facility] [address] [id number] [place] [address] Dec, [facility] [place] [facility] [address] [id number] [place] [address] Dec, [facility] [place] [facility] [address] [id number] [place] [address] Dec, [facility] [place] [facility] [address] [id number] [place] [address] Nov, [facility] [place] [facility] [address] [id number] [place] [address] Nov, [facility] [place] [facility] [address] [id number] [place] [address] Nov, [facility] [place] [facility] [address] [id number] [place] [address] Nov, [facility] [place] [facility] [address] [id number] [place] [address] Nov, [facility] [place] [facility] [address] [id number] [place] [address] Nov, [facility] [place] [facility] [address] [id number] [place] [address] Nov, [facility] [place] [facility] [address] [id number] [place] [address] Nov, [facility] [place] [facility] [address] [id number] [place] [address] Oct, [facility] [place] [facility] [address] [id number] [place] [address] Oct, [facility] [place] [facility] [address] [id number] [place] [address] Sep, [facility] [place] [facility] [address] [id number] [place] [address] Sep, [facility] [place] [facility] [address] [id number] [place] [address] Sep, [facility] [place] [facility] [address] [id number] [place] [address] Sep, [facility] [place] [facility] [address] [id number] [place] [address] Aug, [facility] [place] [facility] [address] [id number] [place] [address] Aug, [facility] [place] [facility] [address] [facility] [id number] [place] [address] Aug, [facility] [place] [facility] [address] [facility] [id number] [place] [address] Aug, [facility] [place] [facility] [address] [id number] [place] [address] Aug, [facility] [place] [facility] [address] [id number] [place] [address] Aug, [facility] [place] [facility] [address] [id number] [place] [address] Aug, [facility] [place] [facility] [address] [facility] [id number] [place] [address] Aug, [facility] [place] [facility] [address] [id number] [place] [address] Jul, [facility] [place] [facility] [address] [id number] [place] [address] Jul, [facility] [place] [facility] [address] [id number] [place] [address] Jul, [facility] [place] [facility] [address] [id number] [place] [address] Jul, [facility] [place] [facility] [address] [id number] [place] [address] Jul, [facility] [place] [facility] [address] [id number] [place] [address] Jun, [facility] [place] [facility] [address] [id number] [place] [address] Jun, [facility] [place] [facility] [address] [id number] [place] [address] Jun, [facility] [place] [facility] [address] [id number] [place] [address] Jun, [facility] [place] [facility] [address] [id number] [place] [address] Jun, [facility] [place] [facility] [address] [id number] [place] [address] Jun, [facility] [place] [facility] [address] [id number] [place] [address] May, [facility] [place] [facility] [address] [id number] [place] [address] May, [facility] [place] [facility] [address] [id number] [place] [address] May, [facility] [place] [facility] [address] [id number] [place] [address] May, [facility] [place] [facility] [address] [id number] [place] [address] Apr, [facility] [place] [facility] [address] [id number] [place] [address] Apr, [facility] [place] [facility] [address] [id number] [place] [address] Apr, [facility] [place] [facility] [address] [id number] [place] [address] Apr, [facility] [place] [facility] [address] [id number] [place] [address] Apr, [facility] [place] [facility] [address] [id number] [place] [address] Apr, [facility] [place] [facility] [address] [id number] [place] [address] March, [facility] [place] [facility] [address] [id number] [place] [address] March, [facility] [place] [facility] [address] [id number] [place] [address] March, [facility] [place] [facility] [address] [id number] [place] [address] March, [facility] [place] [facility] [address] [id number] [place] [address] Feb, [facility] [place] [facility] [address] [id number] [place] [address] Feb, [facility] [place] [facility] [address] [id number] [place] [address] Feb, [facility] [place] [facility] [address] [id number] [place] [address] Feb, [facility] [place] [facility] [address] [id number] [place] [address] Feb, [facility] [place] [facility] [address] [id number] [place] [address] Feb, [facility] [place] [facility] [address] [id number] [place] [address] Feb, [facility] [place] [facility] [address] [id number] [place] [address] Feb, [facility] [place] [facility] [address] [id number] [place] [address] Feb, [facility] [place] [facility] [address] [id number] [place] [address] Feb, [facility] [place] [facility] [address] [id number] [place] [address] Feb, [facility] [place] [facility] [address] [id number] [place] [address] Feb, [facility] [place] [facility] [address] [id number] [place] [address] Feb, [facility] [place] [facility] [address] [id number] [place] [address] Feb, [facility] [place] [facility] [address] [id number] [place] [address] Feb, [facility] [place] [facility] [address] [id number] [place] [address] Feb, [facility] [place] [facility] [address] [id number] [place] [address] Jan, [facility] [place] [facility] [address] [id number] [place] [address] Jan, [facility] [place] [facility] [address] [id number] [place] [address] Dec, [facility] [place] [facility] [address] [id number] [place] [address] Dec, [facility] [place] [facility] [address] [id number] [place] [address] Dec, [facility] [place] [facility] [address] [id number] [place] [address] Dec, [facility] [place] [facility] [address] [id number], [place] [address] Dec, [facility] [address] [id number] [place] [address] Dec, [facility] [place] [facility] [address] [id number] [place] [address] Dec, [facility] [place] [facility] [address] [id number] [place] [address] Nov, [facility] [place] [facility] [address] [id number] [place] [address] Nov, [facility] [place] [facility] [address] [id number] [place] [address] Nov, [facility] [place] [facility] [address] [id number] [place] [address] Nov, [facility] [address] [address] [id number], [place] [address] Oct, [facility] [place] [facility] [address] [id number] [place] [address] Oct, [facility] [place] [facility] [address] [id number], [place] [address] Sep, [facility] [place] [facility] [address] [id number] [place] [address] Sep, [facility] [place] [facility] [address] [id number], [place] [address] Aug, [facility] [place] [facility] [address] [id number], [place] [address] Aug, [facility] [place] [facility] [address] [id number], [place] [address] Aug, [facility] [place] [facility] [address] [id number], [place] [address] Aug, [facility] [place] [facility] [address] [id number] [place] [address] Aug, [facility] [place] [facility] [address] [id number] [place] [address] Aug, [facility] [address] [id number] [place] [address] Aug, [facility] [place] [facility] [address] [id number] [place] [address] Aug, [facility] [address] [id number] [place] [address] Aug, [facility] [place] [facility] [address] [id number] [place] [address] Aug, [facility] [place] [facility] [address] [id number] [place] [address] Jun, [facility] [place] [facility] [address] [id number] [place] [address] Jun, [facility] [place] [facility] [address] [id number] [place] [address] May, [facility] [address] [id number] [place] [address] Apr, [facility] [place] [facility] [address] [id number] [place] [address] Apr, [facility] [place] [facility] [address] [id number] [place] [address] March, [facility] [place] [facility] [address] [id number] [place] [address] Feb, [facility] [place] [facility] [address] [id number] [place] [address] Jan, [facility] [place] [facility] [address] [id number] [place] [address] Jan, [facility] [place] [facility] [address] [id number] [place] [address] Dec, [facility] [place] [facility] [address] [id number] [place] [address] Dec, [facility] [address] [facility] [id number] [place] [address] Nov, [facility] [address] [facility] [id number], [place] [address] Jul, [facility] [address] [facility] [id number] [place] [address] Jul, [facility] [address] [facility] [id number], [place] [address] Jun, [facility] [address] [facility] [id number] [place] [address] May, [facility] [address] [facility] [id number] [place] [address] May, [facility] [address] [facility] [id number] [place] [address] May, [facility] [address] [facility] [id number], [place] [address] May, [facility] [address] [facility] [id number], [place] [address] May, [facility] [address] [facility] [id number], [place] [address] May, [facility] [address] [facility] [id number], [place] [address] May, [facility] [address] [facility] [id number], [place] [address] Apr, [facility] [address] [facility] [id number], [place] [address] Apr, [facility] [address] [facility] [id number], [place] [address] Apr, [facility] [address] [facility] [id number], [place] [address] Apr, IMMUNIZATIONS No Known Immunizations SOCIAL HISTORY Never Assessed REASON FOR VISIT Controlled Med Refill 12/12 PLAN OF CARE VITAL SIGNS MEDICATIONS Medication Instructions Dosage Frequency Start Date End Date Duration Status Hydrocodone-Acetaminophen 10-325 MG Orally 4 times a day 1 tablet as needed for pain 6h Oct, 28 days Active Ambien 10 MG Orally [...]
--- OUTSIDE RECORDS SUMMARY | 2019-07-08 00:22 | XMS REPORT ---
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 Name Role Phone JOSÉ LUIS RODRÍGUEZ Unavailable PROBLEMS Type Condition ICD9-CM Code [id number] Code Onset Dates Condition Status SNOMED Code Problem Hypertriglyceridemia E78.1 Active 920624834 Problem Hyperinsulinemia E16.1 Active 83640331 Problem Family history of diabetes mellitus Z83.3 Active 823401672 Problem History of MRSA infection Z86.14 Active 266910479 Problem Chronic pain G89.29 Active 36671843 Problem Dysthymia F34.1 Active 44708837 Problem Insomnia, unspecified type G47.00 Active 704167787 Problem Chronic obstructive pulmonary disease, unspecified COPD type J44.9 Active 84900475 Problem Osteoarthritis M19.90 Active 843552122 Problem Primary insomnia F51.01 Active 1334078 Problem Essential hypertension I10 Active 70836120 ALLERGIES No Information ENCOUNTERS Encounter Location Date Diagnosis [place] [address] [address] Nov, [place] [id number] [place] [address] Nov, [place] [id number] [place] [address] Oct, Chronic pain G89.29 and Insomnia, unspecified type G47.00 [place] [id number] [place] [address] Oct, [place] [id number] [place] [address] Oct, Pneumonia of left lower lobe due to infectious organism J18.1 and Chronic obstructive pulmonary disease, unspecified COPD type J44.9 [place] [address] [place] [id number] [place] [address] Oct, Hypertriglyceridemia E78.1 [place] [address] [address] Sep, Hypertriglyceridemia E78.1 [place] [address] [address] Sep, Chronic pain G89.29 and Insomnia, unspecified type G47.00 [place] [address] [place] [id number] [place] [address] Aug, Seborrheic keratoses L82.1 and Sebaceous cyst L72.3 [place] [address] [place] [id number] [place] [address] 16 Aug, 2018 Chronic pain G89.29 and Insomnia, unspecified type G47.00 [place] [address] [place] [id number] [place] [address] 18 Jul, 2018 Seborrheic keratoses L82.1 [place] [address] [place] [id number] [place] [address] Jul, Chronic pain G89.29 and Insomnia, unspecified type G47.00 [place] [address] [place] [id number] [place] [address] Jun, Chronic pain G89.29 and Insomnia, unspecified type G47.00 [place] [address] [place] [id number] [place] [address] Jun, Seborrheic keratoses L82.1 [place] [address] [place] [id number] [place] [address] May, Dysthymia F34.1 ; Chronic obstructive pulmonary disease, unspecified COPD type J44.9 ; Chronic pain G89.29 ; Insomnia, unspecified type G47.00 ; BMI 40.0-44.9, adult Z68.41 and Other seborrheic keratosis L82.1 [place] [address] [place] [id number] [place] [address] May, Chronic pain G89.29 and Insomnia, unspecified type G47.00 [place] [address] [place] [id number] [place] [address] Apr, Hypertriglyceridemia E78.1 [place] [address] [place] [id number] [place] [address] Apr, Chronic pain G89.29 and Insomnia, unspecified type G47.00 [place] [address] [place] [id number] [place] [address] 15 Apr, 2018 Hyperinsulinemia E16.1 ; Hypertriglyceridemia E78.1 and Fatigue, unspecified type R53.83 [place] [address] [place] [id number] [place] [address] 13 Apr, 2018 Hyperinsulinemia E16.1 ; Chronic pain G89.29 ; Primary insomnia F51.01 ; Chronic obstructive pulmonary disease, unspecified COPD type J44.9 ; Dysthymia F34.1 ; Hypertriglyceridemia E78.1 ; Fatigue, unspecified type R53.83 and Rash R21 [place] [address] [place] [id number] [place] [address] March, Chronic pain G89.29 and Insomnia, unspecified type G47.00 [place] [address] [place] [id number] [place] [address] March, Insomnia, unspecified type G47.00 [place] [address] [place] [id number] [place] [address] Feb, Chronic pain G89.29 [place] [address] [place] [id number] [place] [address] Feb, Chronic pain G89.29 [place] [address] [place] [id number] [place] [address] Jan, Chronic pain G89.29 [place] [address] [address] Dec, Chronic pain G89.29 [facility] [address] [place] [id number] [place] [address] Nov, Chronic pain G89.29 and Insomnia, unspecified type G47.00 [place] [address] [place] [id number] [place] [address] Oct, Insomnia, unspecified type G47.00 ; Chronic pain G89.29 and Colon cancer screening Z12.11 [place] [address] [place] [id number] [place] [address] Oct, Chronic pain G89.29 [place] [address] [place] [id number] [place] [address] Sep, Chronic pain G89.29 and Insomnia, unspecified type G47.00 [place] [address] [place] [id number] [place] [address] Sep, Chronic pain G89.29 [place] [address] [place] [id number] [place] [address] Sep, [place] [address] [place] [id number] [place] [address] Aug, Medicare welcome exam Z00.00 ; Encounter for immunization Z23 ; Colon cancer screening Z12.11 and Encounter for screening for lung cancer Z12.2 [place] [address] [place] [id number] [place] [address] Aug, [place] [address] [place] [id number] [place] [address] Aug, Chronic pain G89.29 and Insomnia, unspecified type G47.00 [place] [address] [place] [id number] [place] [address] Aug, Hypertriglyceridemia E78.1 [place] [address] [place] [id number] [address] Jul, Chronic pain G89.29 and Insomnia, unspecified type G47.00 [facility] [id number] [place] [address] Jun, Hypertriglyceridemia E78.1 [facility] [address] [place] [id number] [place] [address] Jun, Chronic pain G89.29 and Insomnia, unspecified type G47.00 [facility] [address] [place] [id number] [place] [address] Jun, [facility] [address] [place] [id number] [place] [address] Jun, [facility] [address] [address] May, Hyperinsulinemia E16.1 ; Chronic pain G89.29 ; Insomnia, unspecified type G47.00 and Rash R21 [place] [address] [address] May, Chronic pain G89.29 [facility] [address] [place] [id number] [place] [address] May, Hypertriglyceridemia E78.1 [place] [address] [place] [id number] [place] [address] Apr, Chronic pain G89.29 [facility] [address] [place] [id number] [place] [address] Apr, Chronic pain G89.29 ; Hyperinsulinemia E16.1 ; Hypertriglyceridemia E78.1 and Primary insomnia F51.01 [facility] [address] [place] [id number] [place] [address] March, Chronic pain G89.29 [facility] [address] [address] March, Chronic pain G89.29 [facility] [address] [place] [id number] [place] [address] Feb, [facility] [id number] [place] [address] 04 Feb, 2017 Chronic pain G89.29 [facility] [address] [place] [id number] [place] [address] Jan, Chronic pain G89.29 [facility] [address] [place] [id number] [place] [address] 07 Dec, 2016 Chronic pain G89.29 [facility] [address] [place] [id number] [place] [address] Dec, [facility] [address] [place] [id number] [place] [address] Nov, Hypertriglyceridemia E78.1 [facility] [address] [place] [id number] [place] [address] Nov, [facility] [address] [place] [id number] [place] [address] Nov, Chronic pain G89.29 ; Hypertriglyceridemia E78.1 and Chronic obstructive pulmonary disease, unspecified COPD type J44.9 [facility] [address] [place] [id number] [place] [address] Nov, Chronic pain G89.29 [facility] [address] [place] [id number] [place] [address] Oct, Chronic pain G89.29 [facility] [address] [place] [id number] [place] [address] 05 Oct, 2016 [facility] [id number] [place] [address] 29 Sep, 2016 Chronic obstructive pulmonary disease, unspecified COPD type J44.9 and Abscess L02.91 [facility] [address] [place] [address] 16 Sep, 2016 Chronic pain G89.29 [facility] [address] [place] [address] Aug, Chronic pain G89.29 [facility] [address] [place] [id number] [place] [address] Aug, Chronic pain G89.29 [facility] [address] [address] Aug, Cutaneous horn L85.8 and Skin tag L91.8 [facility] [address] [address] Jul, [facility] [address] [address] Jul, Hypertriglyceridemia E78.1 [place] [address] [address] 07 Jul, 2016 Other chronic pain G89.29 ; Essential hypertension I10 ; Hyperinsulinemia E16.1 ; Hyperlipidemia, unspecified hyperlipidemia type E78.5 and Cutaneous horn L85.8 [place] [address] [place] [id number] [place] [address] Jun, Chronic pain G89.29 [facility] [address] [address] May, Chronic pain G89.29 [facility] [address] [place] [id number] [place] [address] May, [place] [address] [place] [id number] [place] [address] May, Skin infection L08.9 [facility] [address] [place] [id number] [place] [address] Apr, Chronic pain G89.29 [facility] [address] [address] Apr, [facility] [address] [place] [id number] [place] [address] Apr, Chronic pain G89.29 [facility] [address] [address] March, [facility] [address] [place] [id number] [place] [address] Feb, Chronic pain G89.29 ; Hyperinsulinemia E16.1 and Hypertriglyceridemia E78.1 [facility] [address] [place] [id number] [place] [address] Feb, [facility] [address] [address] Jan, [facility] [address] [place] [id number] [place] [address] Dec, [facility] [address] [address] Nov, [facility] [address] [place] [id number] [place] [address] Oct, [facility] [address] [address] Oct, Hyperinsulinemia E16.1 [facility] [address] [place] [id number] [place] [address] Oct, Other chronic pain G89.29 ; Chronic obstructive pulmonary disease, unspecified COPD type J44.9 ; Insomnia, unspecified type G47.00 ; Hyperinsulinemia E16.1 and Essential hypertension I10 [facility] [address] [place] [id number] [place] [address] Sep, [facility] [address] [place] [id number] [place] [address] Aug, [facility] [address] [place] [id number] [place] [address] 30 Jul, 2015 [facility] [address] [place] [id number] [place] [address] 14 Jul, 2015 [facility] [address] [place] [id number] [place] [address] 14 Jul, 2015 Overweight 278.02 and Hyperinsulinemia 251.1 [facility] [address] [place] [id number] [place] [address] Jul, [facility] [address] [address] Jun, Skin tags, multiple acquired 701.9 [facility] [address] [place] [id number] [place] [address] Jun, Other chronic pain 338.29 ; Erectile dysfunction 607.84 ; Hyperinsulinemia 251.1 and Hypertension 401.9 [facility] [address] [address] Jun, [facility] [address] [address] Jun, [facility] [address] [place] [id number] [place] [address] Jun, [facility] [address] [address] May, Pure hyperglyceridemia 272.1 [facility] [address] [place] [id number] [place] [address] May, Pure hyperglyceridemia 272.1 [facility] [address] [place] [id number] [place] [address] May, [facility] [address] [place] [id number] [place] [address] May, Overgrown toenails 703.8 ; Seborrheic keratosis 702.19 ; Skin tag 701.9 ; Warts, genital 078.11 ; Cramps, extremity 729.82 ; Increased appetite 783.6 and Heat rash 705.1 [facility] [address] [place] [address] May, [facility] [address] [place] [id number] [place] [address] Apr, [facility] [address] [place] [id number] [address] 08 Apr, 2015 [facility] [address] [id number] [place] [address] 14 Mar, 2015 [facility] [place] [facility] [address] [id number] [place] [address] 14 Feb, 2015 [facility] [place] [facility] [address] [id number] [place] [address] 13 Feb, 2015 [facility] [place] [facility] [address] [id number] [place] [address] 27 Jan, 2015 [facility] [place] [facility] [address] [id number] [place] [address] 27 Jan, 2015 [facility] [place] [facility] [address] [id number] [place] [address] 27 Jan, 2015 [facility] [place] [facility] [address] [id number] [place] [address] 27 Jan, 2015 [facility] [place] [facility] [address] [id number] [place] [address] 19 Jan, 2015 [facility] [place] [facility] [address] [id number] [place] [address] 19 Jan, 2015 [facility] [place] [facility] [address] [id number] [place] [address] 16 Jan, 2015 [facility] [place] [facility] [address] [id number] [place] [address] 16 Jan, 2015 [facility] [place] [facility] [address] [id number] [place] [address] 10 Jan, 2015 [facility] [place] [facility] [address] [id number] [place] [address] 10 Jan, 2015 [facility] [place] [facility] [address] [id number] [place] [address] 05 Jan, 2015 [facility] [place] [facility] [address] [id number] [place] [address] Jan, [facility] [place] [facility] [address] [id number] [place] [address] Dec, 2014 [facility] [place] [facility] [address] [id number] [place] [address] Dec, 2014 [facility] [place] [facility] [address] [id number] [place] [address] Dec, 2014 [facility] [place] [facility] [address] [id number] [place] [address] Dec, 2014 [facility] [place] [facility] [address] [id number] [place] [address] Dec, [facility] [place] [facility] [address] [id number] [place] [address] Dec, [facility] [place] [facility] [address] [id number] [place] [address] Dec, [facility] [place] [facility] [address] [id number] [place] [address] Dec, [facility] [place] [facility] [address] [id number] [place] [address] Nov, [facility] [place] [facility] [address] [id number] [place] [address] Nov, [facility] [place] [facility] [address] [id number] [place] [address] Nov, [facility] [place] [facility] [address] [id number] [place] [address] Nov, [facility] [place] [facility] [address] [id number] [place] [address] Nov, [facility] [place] [facility] [address] [id number] [place] [address] Nov, [facility] [place] [facility] [address] [id number] [place] [address] Nov, [facility] [place] [facility] [address] [id number] [place] [address] Nov, [facility] [place] [facility] [address] [id number] [place] [address] Oct, [facility] [place] [facility] [address] [id number] [place] [address] Oct, [facility] [place] [facility] [address] [id number] [place] [address] Sep, [facility] [place] [facility] [address] [id number] [place] [address] Sep, [facility] [place] [facility] [address] [id number] [place] [address] Sep, [facility] [place] [facility] [address] [id number] [place] [address] Sep, [facility] [place] [facility] [address] [id number] [place] [address] Aug, [facility] [place] [facility] [address] [id number] [place] [address] Aug, [facility] [place] [facility] [address] [facility] [id number] [place] [address] Aug, [facility] [place] [facility] [address] [facility] [id number] [place] [address] Aug, [facility] [place] [facility] [address] [id number] [place] [address] Aug, [facility] [place] [facility] [address] [id number] [place] [address] Aug, [facility] [place] [facility] [address] [id number] [place] [address] Aug, [facility] [place] [facility] [address] [facility] [id number] [place] [address] Aug, [facility] [place] [facility] [address] [id number] [place] [address] Jul, [facility] [place] [facility] [address] [id number] [place] [address] Jul, [facility] [place] [facility] [address] [id number] [place] [address] Jul, [facility] [place] [facility] [address] [id number] [place] [address] Jul, [facility] [place] [facility] [address] [id number] [place] [address] Jul, [facility] [place] [facility] [address] [id number] [place] [address] Jun, [facility] [place] [facility] [address] [id number] [place] [address] Jun, [facility] [place] [facility] [address] [id number] [place] [address] Jun, [facility] [place] [facility] [address] [id number] [place] [address] Jun, [facility] [place] [facility] [address] [id number] [place] [address] Jun, [facility] [place] [facility] [address] [id number] [place] [address] Jun, [facility] [place] [facility] [address] [id number] [place] [address] May, [facility] [place] [facility] [address] [id number] [place] [address] May, [facility] [place] [facility] [address] [id number] [place] [address] May, [facility] [place] [facility] [address] [id number] [place] [address] May, [facility] [place] [facility] [address] [id number] [place] [address] Apr, [facility] [place] [facility] [address] [id number] [place] [address] Apr, [facility] [place] [facility] [address] [id number] [place] [address] Apr, [facility] [place] [facility] [address] [id number] [place] [address] Apr, [facility] [place] [facility] [address] [id number] [place] [address] Apr, [facility] [place] [facility] [address] [id number] [place] [address] Apr, [facility] [place] [facility] [address] [id number] [place] [address] March, [facility] [place] [facility] [address] [id number] [place] [address] March, [facility] [place] [facility] [address] [id number] [place] [address] March, [facility] [place] [facility] [address] [id number] [place] [address] March, [facility] [place] [facility] [address] [id number] [place] [address] Feb, [facility] [place] [facility] [address] [id number] [place] [address] Feb, [facility] [place] [facility] [address] [id number] [place] [address] Feb, [facility] [place] [facility] [address] [id number] [place] [address] Feb, [facility] [place] [facility] [address] [id number] [place] [address] Feb, [facility] [place] [facility] [address] [id number] [place] [address] Feb, [facility] [place] [facility] [address] [id number] [place] [address] Feb, [facility] [place] [facility] [address] [id number] [place] [address] Feb, [facility] [place] [facility] [address] [id number] [place] [address] Feb, [facility] [place] [facility] [address] [id number] [place] [address] Feb, [facility] [place] [facility] [address] [id number] [place] [address] Feb, [facility] [place] [facility] [address] [id number] [place] [address] Feb, [facility] [place] [facility] [address] [id number] [place] [address] Feb, [facility] [place] [facility] [address] [id number] [place] [address] Feb, [facility] [place] [facility] [address] [id number] [place] [address] Feb, [facility] [place] [facility] [address] [id number] [place] [address] Feb, [facility] [place] [facility] [address] [id number] [place] [address] Jan, [facility] [place] [facility] [address] [id number] [place] [address] Jan, [facility] [place] [facility] [address] [id number] [place] [address] Dec, [facility] [place] [facility] [address] [id number] [place] [address] Dec, [facility] [place] [facility] [address] [id number] [place] [address] Dec, [facility] [place] [facility] [address] [id number] [place] [address] Dec, [facility] [place] [facility] [address] [id number] [place] [address] Dec, [facility] [address] [id number] [place] [address] Dec, [facility] [place] [facility] [address] [id number] [place] [address] Dec, [facility] [place] [facility] [address] [id number] [place] [address] Nov, [facility] [place] [facility] [address] [id number] [place] [address] Nov, [facility] [place] [facility] [address] [id number] [place] [address] Nov, [facility] [place] [facility] [address] [id number] [place] [address] Nov, [facility] [address] [id number] [place] [address] Oct, [facility] [place] [facility] [address] [id number] [place] [address] Oct, [facility] [place] [facility] [address] [id number] [place] [address] Sep, [facility] [place] [facility] [address] [id number] [place] [address] Sep, [facility] [place] [facility] [address] [id number] [place] [address] Aug, [facility] [place] [facility] [address] [id number] [place] [address] Aug, [facility] [place] [facility] [address] [id number] [place] [address] Aug, [facility] [place] [facility] [address] [id number] [place] [address] Aug, [facility] [place] [facility] [address] [id number] [place] [address] Aug, [facility] [place] [facility] [address] [id number] [place] [address] Aug, [facility] [address] [id number] [place] [address] Aug, [facility] [place] [facility] [address] [id number] [place] [address] Aug, [facility] [address] [id number] [place] [address] Aug, [facility] [place] [facility] [address] [id number] [place] [address] Aug, [facility] [place] [facility] [address] [id number] [place] [address] Jun, [facility] [place] [facility] [address] [address] [id number] [place] [address] Jun, [facility] [place] [facility] [address] [id number] [place] [address] May, [facility] [address] [id number] [place] [address] Apr, [facility] [place] [facility] [address] [id number] [place] [address] Apr, [facility] [place] [facility] [address] [id number] [place] [address] March, [facility] [place] [facility] [address] [id number] [place] [address] Feb, [facility] [place] [facility] [address] [id number] [place] [address] Jan, [facility] [place] [facility] [address] [id number] [place] [address] Jan, [facility] [place] [facility] [address] [id number] [place] [address] Dec, [facility] [place] [facility] [address] [id number] [place] [address] Dec, [facility] [address] [facility] [id number] [place] [address] Nov, [facility] [address] [facility] [id number] [place] [address] Jul, [facility] [address] [facility] [id number] [place] [address] Jul, [facility] [address] [facility] [id number] [place] [address] Jun, [facility] [address] [facility] [id number] [place] [address] May, [facility] [address] [facility] [id number] [place] [address] May, [facility] [address] [facility] [id number] [place] [address] May, [facility] [address] [facility] [id number] [place] [address] May, [facility] [address] [id number] [place] [address] May, [facility] [address] [id number] [place] [address] May, [facility] [id number] [place] [address] May, [facility] [address] [facility] [id number] [place] [address] Apr, [facility] [address] [facility] [id number] [place] [address] Apr, [facility] [address] [facility] [id number] [place] [address] Apr, [facility] [address] [id number] [address] Apr, IMMUNIZATIONS No Known Immunizations SOCIAL HISTORY Never Assessed REASON FOR VISIT Oxygen Order Request PLAN OF CARE VITAL SIGNS MEDICATIONS Unknown [...]
--- OUTSIDE RECORDS SUMMARY | 2019-07-08 00:35 | XMS REPORT | Continuity of Care Document ---
Author Organization Unknown Address Unknown Phone Unavailable Allergies Active Description Code Type Severity Reaction Onset Reported/Identified Relationship to Patient Clinical Status Yes No Known Drug Allergies [id number] Drug Allergy Unknown N/A 03/21/2013 Yes ceftriaxone [id number] Drug Allergy Moderate ITCHING 10/30/2018 Medications There [...] 05/25/2012 ANNE BARAHONA, JOSÉ LUIS S 786.09 difficulty breathing (dyspnea) 05/25/2012 ANNE BARAHONA, JOSÉ LUIS S 401.1 [...] RANKIN APRN 786.09 DIFFICULTY BREATHING (DYSPNEA) 05/25/2012 CAMILLE RODRÍGUEZ APRNA S 401.1 ESSENTIAL HYPERTENSION BENIGN 05/25/2012 ROLLY [...] RANKIN APRN T 780.79 FATIGUE 05/25/2012 KEELY DOCTOR OF NURSE ANESTHESIA, NIXON T 786.09 DIFFICULTY BREATHING (DYSPNEA) 05/25/2012 NIXON RANKIN APRN T 401.1 ESSENTIAL HYPERTENSION BENIGN 05/25/2012 NIXON RANKIN APRN T 599.70 HEMATURIA 05/25/2012 NIXON RANKIN APRN T 723.1 NECK PAIN 05/25/2012 NIXON RANKIN APRN T 780.79 FATIGUE 05/25/2012 NIXON RANKIN APRN T 786.09 DIFFICULTY BREATHING (DYSPNEA) 05/25/2012 ROLLY RODRÍGUEZ APRNNDA S 401.1 ESSENTIAL HYPERTENSION BENIGN 05/25/2012 ANNE DOCTOR OF NURSE ANESTHESIA, JOSÉ LUIS S 599.70 HEMATURIA 05/25/2012 ANNE DOCTOR OF NURSE ANESTHESIA, JOSÉ LUIS S 723.1 NECK PAIN 05/25/2012 ANNE DOCTOR OF NURSE ANESTHESIA, JOSÉ LUIS S 780.79 FATIGUE 05/25/2012 ANNE DOCTOR OF NURSE ANESTHESIA, JOSÉ LUIS S 786.09 DIFFICULTY BREATHING (DYSPNEA) 05/25/2012 ANNE BARAHONA JOSÉ LUIS S 401.1 ESSENTIAL HYPERTENSION BENIGN 05/25/2012 ANNE BARAHONA JOSÉ LUIS S 599.70 HEMATURIA 05/25/2012 ANNE DOCTOR OF NURSE ANESTHESIA, JOSÉ LUIS S 723.1 NECK PAIN 05/25/2012 ANNE DOCTOR OF NURSE ANESTHESIA, JOSÉ LUIS S 780.79 FATIGUE 05/25/2012 ANNE BARAHONA JOSÉ LUIS S 786.09 DIFFICULTY BREATHING (DYSPNEA) 05/25/2012 ANNE BARAHONA, JOSÉ LUIS S 401.1 ESSENTIAL HYPERTENSION BENIGN 05/25/2012 ANNE BARAHONA, JOSÉ LUIS S 599.70 HEMATURIA 05/25/2012 ANNE BARAHONA JOSÉ LUIS S 723.1 NECK PAIN 05/25/2012 ANNE DOCTOR OF NURSE ANESTHESIA, JOSÉ LUIS S 780.79 FATIGUE 05/25/2012 ANNE DOCTOR OF NURSE ANESTHESIA, JOSÉ LUIS S 786.09 DIFFICULTY BREATHING (DYSPNEA) 05/25/2012 ANNE BARAHONA JOSÉ LUIS S 401.1 ESSENTIAL HYPERTENSION BENIGN 05/25/2012 ANNE BARAHONA, JOSÉ LUIS S 599.70 HEMATURIA 05/25/2012 ANNE BARAHONA, JOSÉ LUIS S 723.1 NECK PAIN 05/25/2012 ANNE BARAHONA JOSÉ LUIS S 780.79 FATIGUE 05/25/2012 ANNE BARAHONA JOSÉ LUIS S 786.09 DIFFICULTY BREATHING (DYSPNEA) 05/25/2012 ANNE JAINNROLLYJOSÉ LUIS S 401.1 ESSENTIAL HYPERTENSION BENIGN 05/25/2012 ANNE BARAHONA, JOSÉ LUIS S 599.70 HEMATURIA 05/25/2012 ANNE DOCTOR OF NURSE ANESTHESIA, JOSÉ LUIS S 723.1 NECK PAIN 05/25/2012 [...] AIRWAY OBSTRUCTION NOT ELSEWHERE CLASSIFIED 06/21/2012 ANNE DOCTOR OF NURSE ANESTHESIA, JOSÉ LUIS S 496 CHRONIC AIRWAY OBSTRUCTION NOT ELSEWHERE CLASSIFIED 06/21/2012 NIXON RANKIN APRN 496 CHRONIC AIRWAY OBSTRUCTION NOT ELSEWHERE CLASSIFIED 06/21/2012 NIXON RANKIN APRN 496 CHRONIC AIRWAY OBSTRUCTION NOT ELSEWHERE CLASSIFIED 06/21/2012 ANNE DOCTOR OF NURSE ANESTHESIA, JOSÉ LUIS S 496 CHRONIC AIRWAY OBSTRUCTION NOT ELSEWHERE CLASSIFIED 06/21/2012 ANNE DOCTOR OF NURSE ANESTHESIA, JOSÉ LUIS S 496 CHRONIC AIRWAY OBSTRUCTION NOT ELSEWHERE CLASSIFIED 06/21/2012 ANNE DOCTOR OF NURSE ANESTHESIA, JOSÉ LUIS S 496 CHRONIC AIRWAY OBSTRUCTION NOT ELSEWHERE CLASSIFIED 06/21/2012 ANNE DOCTOR OF NURSE ANESTHESIA, JOSÉ LUIS S 496 CHRONIC AIRWAY OBSTRUCTION NOT ELSEWHERE CLASSIFIED 06/21/2012 ANNE DOCTOR OF NURSE ANESTHESIA, JOSÉ LUIS S 496 CHRONIC AIRWAY OBSTRUCTION NOT ELSEWHERE CLASSIFIED 06/21/2012 PENN DO, RAFIA K 496 CHRONIC AIRWAY OBSTRUCTION NOT ELSEWHERE CLASSIFIED 06/21/2012 PENN DO, RAFIA K 496 CHRONIC AIRWAY OBSTRUCTION NOT ELSEWHERE CLASSIFIED 06/21/2012 496 CHRONIC AIRWAY OBSTRUCTION NOT ELSEWHERE CLASSIFIED 06/22/2012 Ot 327.26 SLEEP RELATED HYPOVENTILATION/HYPOXEMIA 06/22/2012 Ot 496 CHR AIRWAY OBSTRUCT NEC 06/22/2012 Ot 786.09 RESPIRATORY ABNORM NEC 08/24/2012 ROLLY RODRÍGUEZ APRNNDA S 216.4 BENIGN [...] SCALP AND SKIN OF NECK 08/24/2012 ANNE JAINN, JOSÉ LUIS S 216.4 BENIGN NEOPLASM OF [...] 12/29/2012 305.1 NONDEPENDENT TOBACCO USE DISORDER 12/29/2012 ROLLY [...] 305.1 NONDEPENDENT TOBACCO USE DISORDER 12/29/2012 ANNE DOCTOR OF NURSE ANESTHESIA, JOSÉ LUIS S 305.1 NONDEPENDENT TOBACCO USE DISORDER 12/29/2012 ANNE DOCTOR OF NURSE ANESTHESIA, JOSÉ LUIS S 305.1 NONDEPENDENT TOBACCO USE DISORDER 12/29/2012 PENN DO, RAFIA K 305.1 NONDEPENDENT TOBACCO USE DISORDER 12/29/2012 PENN DO, RAFIA K 305.1 NONDEPENDENT TOBACCO USE DISORDER 02/03/2013 NIXON RANKIN APRN T 272.1 HYPERTRIGLYCERIDEMIA 02/03/2013 272.1 HYPERTRIGLYCERIDEMIA 02/03/2013 272.1 HYPERTRIGLYCERIDEMIA 02/03/2013 ANNE DOCTOR OF NURSE ANESTHESIA, JOSÉ LUIS S 272.1 HYPERTRIGLYCERIDEMIA 02/03/2013 ANNE DOCTOR OF NURSE ANESTHESIA, JOSÉ LUIS S 272.1 HYPERTRIGLYCERIDEMIA 02/03/2013 LIZETT LECHUGA MD 272.1 HYPERTRIGLYCERIDEMIA 02/03/2013 NIXON RANKIN APRN T 272.1 HYPERTRIGLYCERIDEMIA 02/03/2013 ANNE BARAHONA, JOSÉ LUIS S 272.1 HYPERTRIGLYCERIDEMIA 02/03/2013 NIXON RANKIN APRN T 272.1 HYPERTRIGLYCERIDEMIA 02/03/2013 NIXON RANKIN APRN T 272.1 HYPERTRIGLYCERIDEMIA 02/03/2013 ANNE DOCTOR OF NURSE ANESTHESIA, JOSÉ LUIS S 272.1 HYPERTRIGLYCERIDEMIA 02/03/2013 ANNE DOCTOR OF NURSE ANESTHESIA, JOSÉ LUIS S 272.1 HYPERTRIGLYCERIDEMIA 02/03/2013 ANNE DOCTOR OF NURSE ANESTHESIA, JOSÉ LUIS S 272.1 HYPERTRIGLYCERIDEMIA 02/03/2013 ANNE DOCTOR OF NURSE ANESTHESIA, JOSÉ LUIS S 272.1 HYPERTRIGLYCERIDEMIA 02/03/2013 ANNE DOCTOR OF NURSE ANESTHESIA, JOSÉ LUIS S 272.1 HYPERTRIGLYCERIDEMIA 02/03/2013 PENN [...] RANKIN APRN 709.9 SKIN LESIONS 03/07/2013 ANNE DOCTOR OF NURSE ANESTHESIA, JOSÉ LUIS S 709.9 SKIN LESIONS 03/07/2013 ANNE DOCTOR OF NURSE ANESTHESIA, JOSÉ LUIS S 709.9 SKIN LESIONS 03/07/2013 ANNE DOCTOR OF NURSE ANESTHESIA, JOSÉ LUIS S 709.9 SKIN LESIONS 03/07/2013 ANNE DOCTOR OF NURSE ANESTHESIA, JOSÉ LUIS S 709.9 SKIN LESIONS 03/07/2013 ANNE DOCTOR OF NURSE ANESTHESIA, JOSÉ LUIS S 709.9 SKIN LESIONS 03/07/2013 PENN DO, RAFIA K 709.9 SKIN LESIONS 03/07/2013 PENN DO, RAFIA K 709.9 SKIN LESIONS 03/24/2013 MARTIN HUMPHREYS, BOBO Lucio Ot 173.31 BASAL CELL CARCINOMA OF SKIN OF OTH UN 03/24/2013 BOBO SALAZAR MD Ot 305.1 TOBACCO USE DISORDER 03/24/2013 BOBO SALAZAR MD Ot 401.9 HYPERTENSION NOS 03/24/2013 BOBO SALAZAR MD Ot 496 CHR AIRWAY OBSTRUCT NEC 03/24/2013 BOBO SALAZAR MD Ot V58.69 OTH MED,LT,CURRENT USE 04/11/2013 173.91 [...] CARCINOMA OF SKIN SITE UNSPECIFIED 04/11/2013 ANNE DOCTOR OF NURSE ANESTHESIA, JOSÉ LUIS S 173.91 BASAL CELL CARCINOMA OF SKIN SITE UNSPECIFIED 04/11/2013 ANNE DOCTOR OF NURSE ANESTHESIA, JOSÉ LUIS S 173.91 BASAL CELL CARCINOMA OF SKIN SITE UNSPECIFIED 04/11/2013 ANNE DOCTOR OF NURSE ANESTHESIA, JOSÉ LUIS S 173.91 BASAL CELL CARCINOMA OF SKIN SITE UNSPECIFIED 04/11/2013 PENN DO RAFIA K 173.91 BASAL CELL CARCINOMA OF SKIN SITE UNSPECIFIED 04/11/2013 PENN DO, RAFIA K 173.91 BASAL CELL CARCINOMA OF SKIN SITE UNSPECIFIED 05/06/2013 ANNE DOCTOR OF NURSE ANESTHESIA, JOSÉ LUIS S 477.0 ALLERGIC RHINITIS DUE TO POLLEN 05/06/2013 ANNE DOCTOR OF NURSE ANESTHESIACAMILLE GrahamA S 553.1 UMBILICAL HERNIA WITHOUT OBSTRUCTION OR GANGRENE 05/06/2013 ANNE DOCTOR OF NURSE ANESTHESIAROLLY GrahamNDA S 719.07 EDEMA FOOT 05/06/2013 ANNE DOCTOR OF NURSE ANESTHESIAROLLY GrahamNDA S V18.0 FAMILY HISTORY OF DIABETES MELLITUS 05/06/2013 CAMILLE RODRÍGUEZ APRNA S 477.0 ALLERGIC RHINITIS DUE TO POLLEN 05/06/2013 ANNE DOCTOR OF NURSE ANESTHESIACAMILLEA S 553.1 UMBILICAL HERNIA WITHOUT OBSTRUCTION OR [...] ALLERGIC RHINITIS DUE TO POLLEN 05/06/2013 ANNE DOCTOR OF NURSE ANESTHESIA, JOSÉ LUIS S 553.1 UMBILICAL HERNIA WITHOUT OBSTRUCTION OR GANGRENE 05/06/2013 ANNE DOCTOR OF NURSE ANESTHESIA, JOSÉ LUIS S 719.07 EDEMA FOOT 05/06/2013 ANNE DOCTOR OF NURSE ANESTHESIA, JOSÉ LUIS S V18.0 FAMILY HISTORY OF DIABETES MELLITUS 05/06/2013 NIXON RANKIN APRN T 477.0 ALLERGIC RHINITIS DUE TO POLLEN 05/06/2013 KEELY JAINNNIXON T 553.1 UMBILICAL HERNIA WITHOUT OBSTRUCTION OR GANGRENE 05/06/2013 KEELY DOCTOR OF NURSE ANESTHESIA, NIXON T 719.07 EDEMA FOOT 05/06/2013 KEELY JAINNNIXON T V18.0 FAMILY HISTORY OF DIABETES MELLITUS 05/06/2013 NIXON RANKIN APRN T 477.0 ALLERGIC RHINITIS DUE TO POLLEN 05/06/2013 KEELY JAINNNIXON T 553.1 UMBILICAL HERNIA WITHOUT OBSTRUCTION OR GANGRENE 05/06/2013 NIXON RANKIN APRN T 719.07 EDEMA FOOT 05/06/2013 NIXON RANKIN APRN T V18.0 FAMILY HISTORY OF DIABETES MELLITUS 05/06/2013 ANNE DOCTOR OF NURSE ANESTHESIA, JOSÉ LUIS S 477.0 ALLERGIC RHINITIS DUE TO POLLEN 05/06/2013 ANNE DOCTOR OF NURSE ANESTHESIA, JOSÉ LUIS S 553.1 UMBILICAL HERNIA WITHOUT OBSTRUCTION OR GANGRENE 05/06/2013 ANNE DOCTOR OF NURSE ANESTHESIA, JOSÉ LUIS S 719.07 EDEMA FOOT 05/06/2013 ANNE DOCTOR OF NURSE ANESTHESIA, JOSÉ LUIS S V18.0 FAMILY HISTORY OF DIABETES MELLITUS 05/06/2013 ANNE DOCTOR OF NURSE ANESTHESIA, JOSÉ LUIS S 477.0 ALLERGIC RHINITIS DUE TO POLLEN 05/06/2013 ANNE DOCTOR OF NURSE ANESTHESIA, JOSÉ LUIS S 553.1 UMBILICAL HERNIA WITHOUT OBSTRUCTION OR GANGRENE 05/06/2013 ANNE DOCTOR OF NURSE ANESTHESIA, JOSÉ LUIS S 719.07 EDEMA FOOT 05/06/2013 ANNE DOCTOR OF NURSE ANESTHESIA, JOSÉ LUIS S V18.0 FAMILY HISTORY OF DIABETES MELLITUS 05/06/2013 ANNE DOCTOR OF NURSE ANESTHESIA, JOÉS LUIS S 477.0 ALLERGIC RHINITIS DUE TO POLLEN 05/06/2013 ANNE DOCTOR OF NURSE ANESTHESIA, JOSÉ LUIS S 553.1 UMBILICAL HERNIA WITHOUT OBSTRUCTION OR GANGRENE 05/06/2013 ANNE DOCTOR OF NURSE ANESTHESIA, JOSÉ LUIS S 719.07 EDEMA FOOT 05/06/2013 ANNE DOCTOR OF NURSE ANESTHESIA, JOSÉ LUIS S V18.0 FAMILY HISTORY OF DIABETES MELLITUS 05/06/2013 ANNE DOCTOR OF NURSE ANESTHESIA, JOSÉ LUIS S 477.0 ALLERGIC RHINITIS DUE TO POLLEN 05/06/2013 ANNE DOCTOR OF NURSE ANESTHESIA, JOSÉ LUIS S 553.1 UMBILICAL HERNIA WITHOUT OBSTRUCTION OR GANGRENE 05/06/2013 ANNE DOCTOR OF NURSE ANESTHESIA, JOSÉ LUIS S 719.07 EDEMA FOOT 05/06/2013 ANNE DOCTOR OF NURSE ANESTHESIA, JOSÉ LUIS S V18.0 FAMILY HISTORY OF DIABETES MELLITUS 05/06/2013 ANNE DOCTOR OF NURSE ANESTHESIA, JOSÉ LUIS S 477.0 ALLERGIC RHINITIS DUE TO POLLEN 05/06/2013 ANNE DOCTOR OF NURSE ANESTHESIA, JOSÉ LUIS S 553.1 UMBILICAL HERNIA WITHOUT OBSTRUCTION OR GANGRENE 05/06/2013 ANNE DOCTOR OF NURSE ANESTHESIA, JOSÉ LUIS S 719.07 EDEMA FOOT 05/06/2013 ANNE DOCTOR OF NURSE ANESTHESIA, JOSÉ LUIS S V18.0 FAMILY HISTORY OF [...] APRN S 338.29 CHRONIC PAIN 09/19/2013 ANNE DOCTOR OF NURSE ANESTHESIA, JOSÉ LUIS S 338.29 CHRONIC PAIN 09/19/2013 ANNE DOCTOR OF NURSE ANESTHESIA, JOSÉ LUIS S 338.29 CHRONIC PAIN 09/19/2013 ANNE DOCTOR OF NURSE ANESTHESIA, JOSÉ LUIS S 338.29 CHRONIC PAIN 09/19/2013 ANNE DOCTOR OF NURSE ANESTHESIA, JOSÉ LUIS S 338.29 CHRONIC PAIN 09/19/2013 PENN DO, RAFIA K 338.29 CHRONIC PAIN 09/19/2013 PENN DO, RAFIA K 338.29 CHRONIC PAIN 02/28/2014 ALEXANDREA HUMPHREYS, LIZETT 702.8 OTHER SPECIFIED DERMATOSES 02/28/2014 NIXON RANKIN APRN 702.8 OTHER SPECIFIED DERMATOSES 02/28/2014 CAMILLE RODRÍGUEZ APRNA S 702.8 OTHER SPECIFIED DERMATOSES 02/28/2014 NIXON RANKIN APRN 702.8 OTHER SPECIFIED DERMATOSES 02/28/2014 NIXON RANKIN APRN 702.8 OTHER SPECIFIED DERMATOSES 02/28/2014 ROLLY ORDRÍGUEZ APRNNDA S 702.8 OTHER SPECIFIED DERMATOSES 02/28/2014 ANNE DOCTOR OF NURSE ANESTHESIA, JOSÉ LUIS S 702.8 OTHER SPECIFIED DERMATOSES 02/28/2014 ANNE DOCTOR OF NURSE ANESTHESIA, JOSÉ LUIS S 702.8 OTHER SPECIFIED DERMATOSES 02/28/2014 ANNE JAINN, JOSÉ LUIS S 702.8 OTHER SPECIFIED DERMATOSES 02/28/2014 ANNE DOCTOR OF NURSE ANESTHESIA, JOSÉ LUIS S 702.8 OTHER SPECIFIED DERMATOSES [...] OF MALIGNANT NEOPLASM OF PROSTATE 03/21/2014 ANNE DOCTOR OF NURSE ANESTHESIA, JOSÉ LUIS S V16.0 FAMILY HISTORY OF MALIGNANT NEOPLASM OF GASTROINTESTINAL TRACT 03/21/2014 ANNE DOCTOR OF NURSE ANESTHESIA JOSÉ LUIS S V16.42 FAMILY HISTORY OF MALIGNANT NEOPLASM OF PROSTATE 03/21/2014 ANNE DOCTOR OF NURSE ANESTHESIA, JOSÉ LUIS S V16.0 FAMILY HISTORY OF MALIGNANT NEOPLASM OF GASTROINTESTINAL TRACT 03/21/2014 ANNE DOCTOR OF NURSE ANESTHESIA, JOSÉ LUIS S V16.42 FAMILY HISTORY OF MALIGNANT NEOPLASM OF PROSTATE 03/21/2014 ANNE DOCTOR OF NURSE ANESTHESIA, JOSÉ LUIS S V16.0 FAMILY HISTORY OF MALIGNANT NEOPLASM OF GASTROINTESTINAL TRACT 03/21/2014 ANNE DOCTOR OF NURSE ANESTHESIA JOSÉ LUIS S V16.42 FAMILY HISTORY OF MALIGNANT NEOPLASM OF PROSTATE 03/21/2014 ANNE DOCTOR OF NURSE ANESTHESIA JOSÉ LUIS S V16.0 FAMILY HISTORY OF MALIGNANT NEOPLASM OF GASTROINTESTINAL TRACT 03/21/2014 ANNE JAINN JOSÉ LUIS S V16.42 FAMILY HISTORY OF MALIGNANT NEOPLASM OF PROSTATE 03/21/2014 ANNE JAINN, JOSÉ LUIS S V16.0 FAMILY HISTORY OF MALIGNANT NEOPLASM OF GASTROINTESTINAL TRACT 03/21/2014 ANNE JAINN, JOSÉ LUIS S V16.42 FAMILY HISTORY OF [...] APRN 702.19 OTHER SEBORRHEIC KERATOSIS 04/11/2014 ANNE DOCTOR OF NURSE ANESTHESIA, JOSÉ LUIS S 702.0 ACTINIC KERATOSIS 04/11/2014 ANNE DOCTOR OF NURSE ANESTHESIA, OJSÉ LUIS S 702.19 OTHER SEBORRHEIC KERATOSIS 04/11/2014 ANNE DOCTOR OF NURSE ANESTHESIA, JOSÉ LUIS S 702.0 ACTINIC KERATOSIS 04/11/2014 ANNE DOCTOR OF NURSE ANESTHESIA, JOSÉ LUIS S 702.19 OTHER SEBORRHEIC KERATOSIS 04/11/2014 ANNE DOCTOR OF NURSE ANESTHESIA, JOSÉ LUIS S 702.0 ACTINIC KERATOSIS 04/11/2014 ANNE DOCTOR OF NURSE ANESTHESIA, JOSÉ LUIS S 702.19 OTHER SEBORRHEIC KERATOSIS 04/11/2014 ANNE DOCTOR OF NURSE ANESTHESIA, JOSÉ LUIS S 702.0 ACTINIC KERATOSIS 04/11/2014 ANNE DOCTOR OF NURSE ANESTHESIA, JOSÉ LUIS S 702.19 OTHER SEBORRHEIC KERATOSIS 04/11/2014 ANNE DOCTOR OF NURSE ANESTHESIA, JOSÉ LUIS S 702.0 ACTINIC KERATOSIS 04/11/2014 ANNE DOCTOR OF NURSE ANESTHESIA, JOSÉ LUIS S 702.19 OTHER SEBORRHEIC KERATOSIS 04/11/2014 PENN DO, RAFIA K 702.0 ACTINIC KERATOSIS 04/11/2014 PENN DO, RAFIA K 702.19 OTHER SEBORRHEIC KERATOSIS 04/11/2014 PENN DO, RAFIA K 702.0 ACTINIC KERATOSIS 04/11/2014 PENN DO, ARFIA K 702.19 OTHER SEBORRHEIC KERATOSIS 09/11/2014 ANNE DOCTOR OF NURSE ANESTHESIA, JOSÉ LUIS S 307.42 INSOMNIA, PSYCHOPHYSIOLOGICAL 09/11/2014 ANNE DOCTOR OF NURSE ANESTHESIA, JOSÉ LUIS S 782.3 EDEMA 09/11/2014 ANNE DOCTOR OF NURSE ANESTHESIA, JOSÉ LUIS S 307.42 INSOMNIA, PSYCHOPHYSIOLOGICAL 09/11/2014 ANNE DOCTOR OF NURSE ANESTHESIA, JOSÉ LUIS S 782.3 EDEMA 09/11/2014 ANNE DOCTOR OF NURSE ANESTHESIA, JOSÉ LUIS S 307.42 INSOMNIA, PSYCHOPHYSIOLOGICAL 09/11/2014 ANNE DOCTOR OF NURSE ANESTHESIA, JOSÉ LUIS S 782.3 EDEMA 09/11/2014 PENN DO, RAFIA K 307.42 INSOMNIA, PSYCHOPHYSIOLOGICAL 09/11/2014 PENN DO, RAFIA K 782.3 EDEMA 09/11/2014 PENN DO, RAFIA K 307.42 INSOMNIA, PSYCHOPHYSIOLOGICAL 09/11/2014 PENN DO, RAFIA K 782.3 EDEMA 12/12/2014 JOSÉ LUIS RODRÍGUEZ APRN 780.79 FATIGUE 12/12/2014 RAFIA PENN DO 780.79 FATIGUE 12/12/2014 RAFIA PENN DO 780.79 FATIGUE 02/06/2015 RAFIA PENN DO 715.04 OSTEOARTHROSIS GENERALIZED INVOLVING HAND 02/06/2015 RAFIA PENN DO 719.43 PAIN- WRIST 06/04/2016 Ot 709.9 SKIN DISORDER NOS 06/04/2016 Ot V72.63 PRE-PROCEDURAL LABORATORY EXAMINATION 06/04/2016 Ot V74.8 SCREEN-BACTERIAL DIS NEC 06/04/2016 MARTIN HUMPHREYS, BOBO Lucio Ot E11.9 TYPE 2 DIABETES MELLITUS WITHOUT COMPLIC 06/04/2016 MARTIN HUMPHREYS, BOBO Lucio Ot L02.414 CUTANEOUS ABSCESS OF LEFT UPPER LIMB 06/05/2016 BOBO SALAZAR MD, Ot E11.9 TYPE 2 DIABETES MELLITUS WITHOUT COMPLIC 06/05/2016 MARTIN HUMPHREYS, BOBO Lucio Ot L02.414 CUTANEOUS ABSCESS OF LEFT UPPER LIMB 06/19/2016 MARTIN HUMPHREYS, BOBO Lucio Ot E11.9 TYPE 2 DIABETES MELLITUS WITHOUT COMPLIC 06/19/2016 MARTIN HUMPHREYS, BOBO Lucio Ot L02.414 CUTANEOUS ABSCESS OF LEFT UPPER LIMB 11/01/2018 MYLES MICHAEL MD Ot J18.9 PNEUMONIA, UNSPECIFIED ORGANISM 11/01/2018 MYLES MICHAEL MD, Ot J44.1 CHRONIC OBSTRUCTIVE PULMONARY DISEASE W 11/01/2018 MYLES MICHAEL MD Ot 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9 CHEST PAIN, UNSPECIFIED Procedures Code Description [place] [address] ROUTINE VENIPUNCTURE 01/24/2013 59614 CMP 01/24/2013 [id number] GFR CALC (RESULT ONLY) 01/24/2013 79840 LIPID PANEL 01/24/2013 Family Pr Nixon Rankin 01/25/2013 RICCO BOBO SALAZAR 02/08/2013 58402 A1C (IN-HOUSE) 05/06/2013 32756 OXIMETRY - OVERNIGHT 09/13/2013 88572 ROUTINE VENIPUNCTURE 09/20/2013 57614 LIPID PANEL 09/20/2013 27191 OXIMETRY 09/22/2013 AMERITOX AMERITOX DRUG SCREEN 03/02/2014 07645 ROUTINE VENIPUNCTURE 03/21/2014 [id number] GFR CALC (RESULT ONLY) 03/21/2014 71342 CMP 03/21/2014 13917 LIPID PANEL 03/21/2014 88929 PSA FREE AND TOTAL 03/21/2014 GENERAL S JOSEE CONSTANTINO 03/21/2014 75796 CRYOTHERAPY OF SKIN 04/11/2014 14535 [employer] 07/27/2014 11263 ROUTINE VENIPUNCTURE 09/27/2014 51504 URINE DRUG SCREEN (IN-HOUSE) 09/27/2014 65117 LIPID PANEL 09/27/2014 [id number] GFR CALC (RESULT ONLY) 09/27/2014 62247 CMP 09/27/2014 67936 CBC 09/27/2014 60661 [employer] 12/13/2014 84705 LIPID PANEL 12/13/2014 17429 TESTOSTERONE TOTAL MALES 12/13/2014 17691 THERAPUTIC INJ SQ/IM 01/03/2015 09668 XRAY WRIST L COMP MIN 3 VIEWS 02/06/2015 Results Test Result Range [facility] - 09/10/17 08:07 Glucose, Serum 108 mg/dL [...] IU/L 0-40 ALT (SGPT) 42 IU/L 0-44 PDM - 09 PANEL (PROFILE 1) - [...] Automated erythrocyte mean corpuscular hemoglobin concentration measurement (mass/volume) 33 g/dL 32-36 Automated erythrocyte distribution width ratio 14.1 % 10.0- 14.5 Automated blood platelet count (count/volume) 235 10*3/uL [...] Blood monocytes automated count (number/volume) 1.0 10*3 0.0- 1.0 Automated eosinophil count 0.2 10*3/uL 0.0-0.3 Automated [...] Serum or plasma aspartate aminotransferase measurement (enzymatic activity/volume) 31 U/L 5-34 Serum or plasma alanine aminotransferase measurement (enzymatic activity/volume) 40 U/L 0-55 Serum or plasma protein measurement (mass/volume) 7.5 g/dL 6.4-8.2 Serum or plasma albumin measurement (mass/volume) 4.1 g/dL 3.2-4.5 CALCIUM CORRECTED 9.1 mg/dL 8.5-10.1 Magnesium - 10/30/18 15:58 Magnesium 2.1 mg/dL 1.8-2.4 Serum or plasma troponin i.cardiac measurement (mass/volume) - 10/30/18 15:58 Serum or plasma troponin i.cardiac measurement (mass/volume) < ng/mL <0.30 Myoglobin, serum - 10/30/18 15:58 Myoglobin, [...] or plasma troponin i.cardiac measurement (mass/volume) < ng/mL <0.30 Complete blood count (CBC) with automated [...] Automated erythrocyte mean corpuscular hemoglobin concentration measurement (mass/volume) 33 g/dL 32-36 Automated erythrocyte distribution width ratio 14.2 % 10.0- 14.5 Automated blood platelet count (count/volume) 246 10*3/uL [...] Blood monocytes automated count (number/volume) 0.1 10*3 0.0- 1.0 Automated eosinophil count 0.0 10*3/uL 0.0-0.3 Automated [...] Serum or plasma aspartate aminotransferase measurement (enzymatic activity/volume) 26 U/L 5-34 Serum or plasma alanine aminotransferase measurement (enzymatic activity/volume) 39 U/L 0-55 Serum or plasma protein measurement (mass/volume) 7.3 g/dL 6.4-8.2 Serum or plasma albumin measurement (mass/volume) 3.9 g/dL 3.2-4.5 CALCIUM CORRECTED 9.0 mg/dL 8.5-10.1 Lipid 1996 panel - 10/31/18 05:51 Serum or plasma triglyceride measurement (mass/volume) 141 mg/dL <150 Serum or plasma cholesterol measurement (mass/volume) 232 mg/dL < 200 Serum or plasma cholesterol in HDL measurement (mass/volume) 45 mg/dL 40-60 Cholesterol in LDL [mass/volume] in serum or plasma by direct assay 161 mg/dL 1-129 Serum or plasma cholesterol in VLDL measurement (mass/volume) 28 mg/dL 5-40 Serum or plasma troponin i.cardiac measurement (mass/volume) - 10/31/18 05:51 Serum or plasma troponin i.cardiac measurement (mass/volume) < ng/mL <0.30 CBC - 02/28/19 08:11 WHITE BLOOD CELL COUNT 6.8 Thousand/uL 3.8-10.8 RED BLOOD CELL COUNT 5.45 Million/uL 4.20-5.80 HEMOGLOBIN 15.9 g/dL 13.2-17.1 HEMATOCRIT 47.9 % 38.5-50.0 MCV 87.9 fL 80.0-100.0 MCH 29.2 pg 27.0-33.0 MCHC 33.2 g/dL 32.0-36.0 RDW 13.2 % 11.0-15.0 PLATELET COUNT 275 Thousand/uL 140-400 MPV 9.3 fL 7.5-12.5 ABSOLUTE NEUTROPHILS 3672 cells/uL 9272-5250 ABSOLUTE LYMPHOCYTES 2006 cells/uL 850-3900 ABSOLUTE MONOCYTES 823 cells/uL 200-950 ABSOLUTE EOSINOPHILS 258 cells/uL 15-500 ABSOLUTE BASOPHILS 41 cells/uL 0-200 NEUTROPHILS 54 % NRG LYMPHOCYTES 29.5 % NRG MONOCYTES 12.1 % NRG EOSINOPHILS 3.8 % NRG BASOPHILS 0.6 % NRG INSULIN LEVEL - 02/28/19 08:11 INSULIN 15.7 uIU/mL 2.0-19.6 TSH - 06/29/19 13:11 TSH 2.03 mIU/L 0.40-4.50 Encounters ACCT No. Visit Date/Time Discharge Status Pt. Type Provider Facility Loc./Unit Complaint [id number] 06/29/2019 11:20:00 06/29/2019 23:59:59 CLS Outpatient JOSÉ LUIS RODRÍGUEZ APRN [facility] [id number] 06/29/2019 11:20:00 Document Registration [id number] 02/28/2019 08:20:00 Document Registration [id number] 10/19/2018 08:00:00 Document Registration [id number] 05/14/2018 08:20:00 Document Registration [id number] 05/12/2018 09:00:00 Document Registration [id number] 09/10/2017 08:00:00 Document Registration [id number] 05/06/2019 13:10:00 05/06/2019 23:59:59 CLS Outpatient JOANA HUMPHREYS FACC, TIFFANI BELTRAN CCDS [facility] CARD HYPERTENSION, HYPERLIPIDEMIA [id number] 10/30/2018 17:55:00 11/01/2018 12:04:00 DIS Inpatient MYLES MICHAEL MD [facility] 4TH ACUTE EXACERBATION OF COPD,CHEST PAIN [id number] 09/30/2017 09:51:00 09/30/2017 23:59:59 CLS Preadmit GERMANIA HUMPHREYS, NELDA [facility] RAD R93.8 ABNORMAL ULTRASOUND [id number] 06/04/2016 13:02:00 06/04/2016 18:43:00 DIS Outpatient BOBO SALAZAR MD [facility] [employer] [id number] 03/24/2013 08:19:00 03/24/2013 11:45:00 DIS Outpatient BOBO SALAZAR MD [facility] [id number] 03/21/2013 10:58:00 Document Registration [id number] 06/21/2012 20:14:00 Document Registration [id number] 02/06/2015 09:23:00 02/06/2015 23:59:59 CLS Outpatient RAFIA PENN DO [id number] 01/03/2015 08:33:00 01/03/2015 23:59:59 CLS Outpatient RAFIA PENN DO [id number] 12/13/2014 08:47:00 12/13/2014 23:59:59 CLS Outpatient JOSÉ LUIS RODRÍGUEZ APRN [id number] 10/03/2014 09:28:00 10/03/2014 23:59:59 CLS Outpatient JOSÉ LUIS RODRÍGUEZ APRN [id number] 09/27/2014 08:26:00 09/27/2014 23:59:59 CLS Outpatient JOSÉ LUIS RODRÍGUEZ APRN [id number] 07/25/2014 10:45:00 07/25/2014 23:59:59 CLS Outpatient JOSÉ LUIS RODRÍGUEZ APRN [id number] 05/02/2014 08:52:00 05/02/2014 23:59:59 CLS Outpatient JOSÉ LUIS RODRÍGUEZ APRN [id number] 04/11/2014 13:41:00 04/11/2014 23:59:59 CLS Outpatient NIXON RANKIN APRN [id number] 04/11/2014 13:41:00 04/11/2014 23:59:59 CLS Outpatient NIXON RANKIN APRN [id number] 03/21/2014 14:38:00 03/21/2014 23:59:59 CLS Outpatient NIXON RANKIN APRN [id number] 02/28/2014 09:44:00 02/28/2014 23:59:59 CLS Outpatient LIZETT LECHUGA MD [id number] 09/20/2013 09:55:00 09/20/2013 23:59:59 CLS Outpatient JOSÉ LUIS RODRÍGUEZ APRN [id number] 05/06/2013 08:58:00 05/06/2013 23:59:59 CLS Outpatient JOSÉ LUIS RODRÍGUEZ APRN [id number] 05/06/2013 08:58:00 05/06/2013 23:59:59 CLS Outpatient JOSÉ LUIS ORDRÍGUEZ APRN [id number] 03/07/2013 14:28:00 03/07/2013 23:59:59 CLS Outpatient [id number] 02/07/2013 16:01:00 02/07/2013 23:59:59 CLS Outpatient NIXON RANKIN APRN [id number] 01/24/2013 08:16:00 01/24/2013 23:59:59 CLS Outpatient JOSÉ LUIS RODRÍGUEZ APRN [id number] 08/24/2012 15:17:00 08/24/2012 23:59:59 CLS Outpatient [id number] 04/11/2013 16:08:00 Document Registration
== END 2019-07-07 15:31 | disposition home or self-care (01) ==
LOC: EDUNIT# 13:53 → ER FS 13:55
DX: L02.212 Cutaneous abscess of back [any part, except buttock and flank] (principal); J44.9 Chronic obstructive pulmonary disease, unspecified; E11.9 Type 2 diabetes mellitus without complications; Z85.828 Personal history of other malignant neoplasm of skin; Z86.14 Personal history of Methicillin resistant Staphylococcus aureus infection; Z88.1 Allergy status to other antibiotic agents; Z79.84 Long term (current) use of oral hypoglycemic drugs; Z79.52 Long term (current) use of systemic steroids; Z87.891 Personal history of nicotine dependence
CPT/HCPCS: 10060; 87070; 87205

== ENCOUNTER 2019-11-12 11:19 | Emergency (ER) | payer MEDICARE ==
[~2019-11-12] VITALS: Ht 173 cm; Wt 109.0 kg
[~2019-11-12 11:19] MED LIST changes: +SULF1TAB35 PO
[2019-11-12] MEDS ORDERED: ASPIRIN 81 MG CHEW (CHILDREN'S ASA) PO ONE (11:30)
[2019-11-12 11:40] LABS: BASOPHILS % (AUTO) 1 % (0-10); EOSINOPHILS # (AUTO) 0.2 10^3/uL (0.0-0.3); EOSINOPHILS % (AUTO) 3 % (0-10); HEMATOCRIT 47 % (40-54); HEMOGLOBIN 15.6 G/DL (13.3-17.7); LYMPHOCYTES # (AUTO) 1.9 X 10^3 (1.0-4.0); LYMPHOCYTES % (AUTO) 32 % (12-44); MEAN CORPUSCULAR HEMOGLOBIN 29 PG (25-34); MEAN CORPUSCULAR HGB CONC 33 G/DL (32-36); MEAN CORPUSCULAR VOLUME 87 FL (80-99); MEAN PLATELET VOLUME 9.5 FL (7.4-10.4); MONOCYTES # (AUTO) 0.7 X 10^3 (0.0-1.0); MONOCYTES % (AUTO) 12 % (0-12); NEUTROPHILS # (AUTO) 3.1 X 10^3 (1.8-7.8); NEUTROPHILS % (AUTO) 52 % (42-75); PLATELET COUNT 225 10^3/uL (130-400); RED CELL DISTRIBUTION WIDTH 14.3 % (10.0-14.5)
[2019-11-12 11:54] LABS: INR 0.9 (0.8-1.4); PROTHROMBIN TIME PATIENT 12.8 SEC (12.2-14.7)
--- NOTE | 2019-11-12 11:56 | Diagnostic Imaging Report ---
EXAMINATION: Chest radiograph, portable AP view. DATE: 11/12/2019 11:45 AM hours. INDICATION: 69-year-old male, increasing shortness of breath. Chest pain COMPARISON: October 31, 2018. FINDINGS: Stable overall appearance of the cardiomediastinal silhouette. There is no identified pneumothorax. There is no large pleural effusion. There is no identified interval focal airspace consolidation. IMPRESSION: 1. No identified interval acute cardiopulmonary abnormality. Dictated by: Dictated on workstation # [id number]
--- NOTE | 2019-11-12 12:02 | ED Chest Pain ---
General Chief Complaint: Chest Pain Stated Complaint: CHEST PAIN Nursing Triage Note: Patient reports intermittent sternal chest pain starting thursday. patient states pain starting while he was pulling weeds. Reports nausea, weakness and increased shortness of breath. denies emesis. Nursing Sepsis Screen: No Definite Risk History of Present Illness Date Seen by Provider: Nov 12, 2019 Time Seen by Provider: 11:25 Initial Comments 69-year-old male reports midsternal chest and bilateral rib pain that began on 11/09/19. He associated it or pulling weeds. In addition the patient has chronic arthritis with shoulder, back and neck pain. He states that the pain in the chest is not present at this time, it is intermittent and will last anywhere from 5-30 minutes. The patient is chronically on hydrocodone/APAP 10/325 mg. Per [facility] Tracs he has been getting 112 tablets monthly since 2016. He reports that his provider has been out of the office for the last few days and he has not been able to get this refilled and has not had any hydrocodone since his pain began. He is not taking any Tylenol or ibuprofen for his symptoms. He is not on any anticoagulants and has not been taking aspirin routinely. He is supposed to be on oxygen at night, does not use it regularly. He also has concerns that he may need to use CPAP. Allergies and Home Medications Allergies Coded Allergies: ceftriaxone (Verified Allergy, Intermediate, ITCHING, 10/30/18) Home Medications Atorvastatin Calcium 40 Mg Tablet, 40 MG PO DAILY, (Reported) Azithromycin 250 Mg Tablet, 250 MG PO DAILY Prescribed by: JOAN MANJARREZ on 11/01/18 1204 Budesonide/Formoterol Fumarate 10.2 Gm Hfa.aer.ad, 2 PUFF IH BID, (Reported) Hydrocodone/Acetaminophen 1 Each Tablet, 1 EACH PO Q4H PRN for PAIN Prescribed by: BOBO SALAZAR on 06/04/16 1723 Hydrocodone/Acetaminophen 1 Each Tablet, 1 EACH PO Q6H PRN for PAIN-MODERATE Prescribed by: JOSE ANTONIO HOWARD on 11/12/19 1253 Ipratropium/Albuterol Sulfate 14.7 Gm Aer.w.adap, 2 PUFF IH QID, (Reported) Metformin HCl 1,000 Mg Tablet, 1,000 MG PO BID, (Reported) Prednisone 10 Mg Tab, 0 PO UD Take 6 tabs(60mg)daily, decrease by 1 tab(10mg) every other day. Prescribed by: JOAN MANJARREZ on 11/01/18 1100 Sulfamethoxazole/Trimethoprim 1 Each Tablet, 1 EACH PO BID Prescribed by: JASSON PANIAGUA on 07/07/19 1512 Patient Home Medication List Home Medication List Reviewed: Yes Review of Systems Review of Systems Constitutional: no symptoms reported, see HPI Respiratory: No Symptoms Reported, See HPI; Denies Shortness of Air Cardiovascular: No Symptoms Reported, Chest Pain Gastrointestinal: No Symptoms Reported, See HPI All Other Systems Reviewed Negative Unless Noted: Yes Past Ewlemka-Ubcxge-Nuateo Hx Past Med/Social Hx: Reviewed Nursing Past Med/Soc Hx Patient Social History Alcohol Use: Regular Use Number of Drinks Today: BB Alcohol Beverage of Choice: Whiskey, [place] Recreational Drug Use: No Smoking Status: Former Smoker Former Smoker, Quit: Oct 30, 2014 2nd Hand Smoke Exposure: No Recent Foreign Travel: No Contact w/Someone Who Travel: No Recent Infectious Disease Expo: No Recent Hopitalizations: No Immunizations Up To Date Tetanus Booster (TDap): Unknown PED Vaccines UTD: Yes Date of Pneumonia Vaccine: Aug 30, 2018 Seasonal Allergies Seasonal Allergies: No Past Medical History Surgeries: No (Wound debriedment) Respiratory: Yes COPD Cardiac: No Hypertension Neurological: No Sexually Transmitted Disease: No HIV/AIDS: No Genitourinary: No Gastrointestinal: No Musculoskeletal: No Endocrine: Yes (patient states is border line) Diabetes, Non-Insulin dep HEENT: No Cancer: Yes Skin Did You Recieve Any Treatments: Yes What Type of Treatment Did You: Surgical Intervention Psychosocial: No Integumentary: Yes (HX of Staph) Blood Disorders: No Adverse Reaction/Blood Tranf: No Physical Exam Vital Signs Vital Signs - First Documented Capillary Refill : Less Than 3 Seconds Height, Weight, BMI Height: 5'8.00" Weight: 240lbs. 1.0oz. 108.565065hs; 36.00 BMI Method:Stated General Appearance: No Apparent Distress, WD/WN HEENT: PERRL/EOMI, TMs Normal, Normal ENT Inspection, Pharynx Normal Neck: Full Range of Motion, Normal Inspection, Supple, Tender Lateral (chronic) Respiratory: Lungs Clear, Normal Breath Sounds, Other (tender to palpation at sternum) Cardiovascular: Regular Rate, Rhythm, No Edema, No Murmur, Normal Peripheral Pulses Gastrointestinal: Normal Bowel Sounds, No Pulsatile Mass, Non Tender, Soft, Distended, Hernia (Liza-Umbilical, patient reports having this for many years) Extremity: Normal Capillary Refill, Normal Inspection Neurologic/Psychiatric: Alert, Oriented x3, No Motor/Sensory Deficits, Normal Mood/Affect Progress/Results/Core Measures Results/Orders Lab Results Laboratory Tests Test 11/12/19 11:25 Range/Units White Blood Count 6.0 4.3-11.0 10^3/uL Red Blood Count 5.42 4.35-5.85 10^6/uL Hemoglobin 15.6 13.3-17.7 G/DL Hematocrit 47 40-54 % Mean Corpuscular Volume 87 80-99 FL Mean Corpuscular Hemoglobin 29 25-34 PG Mean Corpuscular Hemoglobin Concent 33 32-36 G/DL Red Cell Distribution Width 14.3 10.0-14.5 % Platelet Count 225 130-400 10^3/uL Mean Platelet Volume 9.5 7.4-10.4 FL Neutrophils (%) (Auto) 52 42-75 % Lymphocytes (%) (Auto) 32 12-44 % Monocytes (%) (Auto) 12 0-12 % Eosinophils (%) (Auto) 3 0-10 % Basophils (%) (Auto) 1 0-10 % Neutrophils # (Auto) 3.1 1.8-7.8 X 10^3 Lymphocytes # (Auto) 1.9 1.0-4.0 X 10^3 Monocytes # (Auto) 0.7 0.0-1.0 X 10^3 Eosinophils # (Auto) 0.2 0.0-0.3 10^3/uL Basophils # (Auto) 0.0 0.0-0.1 10^3/uL Prothrombin Time 12.8 12.2-14.7 SEC INR Comment 0.9 0.8-1.4 Activated Partial Thromboplast Time 31 24-35 SEC Sodium Level 138 135-145 MMOL/L Potassium Level 4.2 3.6-5.0 MMOL/L Chloride Level 102 98-107 MMOL/L Carbon Dioxide Level 25 21-32 MMOL/L Anion Gap 11 5-14 MMOL/L Blood Urea Nitrogen 18 7-18 MG/DL Creatinine 0.87 0.60-1.30 MG/DL Estimat Glomerular Filtration Rate > 60 BUN/Creatinine Ratio 21 Glucose Level 119 H 70-105 MG/DL Calcium Level 9.5 8.5-10.1 MG/DL Corrected Calcium 9.4 8.5-10.1 MG/DL Magnesium Level 1.7 1.6-2.4 MG/DL Total Bilirubin 0.8 0.1-1.0 MG/DL Aspartate Amino Transf (AST/SGOT) 22 5-34 U/L Alanine Aminotransferase (ALT/SGPT) 27 0-55 U/L Alkaline Phosphatase 46 40-136 U/L Myoglobin 59.2 10.0-92.0 NG/ML Troponin I < 0.028 <0.028 NG/ML B-Type Natriuretic Peptide < 10.0 <100.0 PG/ML Total Protein 7.3 6.4-8.2 GM/DL Albumin 4.1 3.2-4.5 GM/DL My Orders Orders - JOSE ANTONIO HOWARD SPA CONSULTANT Cbc With Automated Diff (11/12/19 11:21) Magnesium (11/12/19 11:21) Chest 1 View, Ap/Pa Only (11/12/19 11:21) Ekg Tracing (11/12/19 11:21) Comprehensive Metabolic Panel (11/12/19 11:21) Myoglobin Serum (11/12/19 11:21) Protime With Inr (11/12/19 11:21) Partial Thromboplastin Time (11/12/19 11:21) O2 (11/12/19 11:21) Monitor-Rhythm Ecg Trace Only (11/12/19 11:21) Ed Iv/Invasive Line Start (11/12/19 11:21) BNP (11/12/19 11:21) Aspirin Chewable Tablet (Baby Aspirin Ch (11/12/19 11:30) Troponin I (11/12/19 11:25) Ketorolac Injection (Toradol Injection) (11/12/19 12:30) Medications Given in ED Current Medications Medications Dose Ordered Sig/Elvira Route Start Time Stop Time Status Last Admin Dose Admin Aspirin 324 mg ONCE ONCE PO 11/12/19 11:30 11/12/19 11:31 DC 11/12/19 11:33 324 MG Ketorolac Tromethamine 30 mg ONCE ONCE IVP 11/12/19 12:30 11/12/19 12:31 DC 11/12/19 12:31 30 MG Vital Signs/I&O 11/12/19 11/12/19 11/12/19 11/12/19 11:24 11:24 11:24 13:01 Temp 36.6 36.6 Pulse 66 60 Resp 18 18 B/P (MAP) 166/98 (120) 130/76 (120) Pulse Ox 93 95 O2 Delivery Room Air Room Air Blood Pressure Mean: 120 POS Progress Progress Note : Time: 11:25 Progress Note Patient seen and evaluated will obtain labs, chest x-ray, and EKG. 1215 patient continues to be asymptomatic. Will give Toradol 30 mg IV. 1240 Patient continue to be asymptomatic. Trace improvement since Toradol. Discharge instructions and return precautions reviewed with the patient. All questions answered. Initial ECG Impression Date: Nov 12, 2019 Initial ECG Impression Time: 11:22 Initial ECG Rate: 66 Initial ECG Rhythm: Normal Sinus Initial ECG Intervals: Normal Initial ECG Intervals HI 176, QRSD 106, QT 404, QTc 424. [place] P -13, QRS -7, T 49. Initial ECG Impression: Normal Initial ECG Comparisson: Unchanged Comment Reviewed with Dr. Salazar, concurred with interpretation. Diagnostic Imaging Diagonstic Imaging: Xray Plain Films/CT/US/NM/MRI: chest Comments NAME: [facility] REC#: [id number] PT STATUS: REG ER : 1950 PHYSICIAN: JOSE ANTONIO HOWARD ADMIT DATE: 11/12/19/ER Draft POSDate of Exam:11/12/19 CHEST 1 VIEW, AP/PA ONLY EXAMINATION: Chest radiograph, portable AP view. DATE: 11/12/2019 11:45 AM hours. INDICATION: 69-year-old male, increasing shortness of breath. Chest pain COMPARISON: October 31, 2018. FINDINGS: Stable overall appearance of the cardiomediastinal silhouette. There is no identified pneumothorax. There is no large pleural effusion. There is no identified interval focal airspace consolidation. IMPRESSION: 1. No identified interval acute cardiopulmonary abnormality. Dictated on workstation # [id number] Dict: 11/12/19 1146 Trans: 11/12/19 1155 [facility] [id number] Interpreted by: STACIA WILL MD Electronically signed by: Reviewed: Reviewed by Me Departure Impression Primary Impression: Costochondritis, acute Disposition: 01 HOME, SELF-CARE Condition: Improved Departure-Patient Inst. Decision time for Depature: 12:40 Referrals: [facility]/JENNIFER (PCP) Primary Care Physician JOSÉ LUIS RODRÍGUEZ (Family) Primary Care Physician Patient Instructions: Chest Pain That Is Not Caused by the Heart (DC), Costochondritis (DC) Add. Discharge Instructions: Continue with home medications as normally prescribed. Take ibuprofen 600 mg, every 8 hours. Warm, moist compression to ribs and chest, areas of pain. Take aspirin 81 mg 1 daily. Follow-up with your primary care provider if symptoms are not improving or worsen. Return to emergency department for persistent chest pain, especially the pain radiates into the left arm, and is associated with sweating and nausea or vomiting. All discharge instructions reviewed with patient and/or family. Voiced understanding. Scripts Hydrocodone/Acetaminophen (Hydrocodon-Acetaminophn 10-325) 1 Each Tablet 1 EACH PO Q6H PRN for PAIN-MODERATE MDD 5, #15 TAB 0 Refills Prov: JOSE ANTONIO HOWARD 11/12/19 JOSE ANTONIO HOWARD Nov 12, 2019 12:02 POS
[2019-11-12 12:03] LABS: ALANINE AMINOTRANSFERASE 27 U/L (0-55); ALBUMIN 4.1 GM/DL (3.2-4.5); ALKALINE PHOSPHATASE 46 U/L (40-136); BILIRUBIN,TOTAL 0.8 MG/DL (0.1-1.0); BUN/CREATININE RATIO 21; CALCIUM 9.5 MG/DL (8.5-10.1); CARBON DIOXIDE 25 MMOL/L (21-32); CHLORIDE 102 MMOL/L (98-107); CREATININE SERUM 0.87 MG/DL (0.60-1.30); GFR ESTIMATED > 60; GLUCOSE 119 MG/DL (70-105); MAGNESIUM 1.7 MG/DL (1.6-2.4); POTASSIUM 4.2 MMOL/L (3.6-5.0); SODIUM 138 MMOL/L (135-145); TOTAL PROTEIN 7.3 GM/DL (6.4-8.2)
[2019-11-12] MEDS ORDERED: KETOROLAC 30 MG/ML VIAL IVP ONE (12:30)
[2019-11-12] MEDS ORDERED: HYDR-3820 PO (12:53)
[2019-11-12 13:01] VITALS: BP 130/76
== END 2019-11-12 13:03 | disposition home or self-care (01) ==
LOC: EDUNIT# 11:19 → ER 11:20
DX: M94.0 Chondrocostal junction syndrome [Tietze] (principal); J44.9 Chronic obstructive pulmonary disease, unspecified; I10 Essential (primary) hypertension; E11.9 Type 2 diabetes mellitus without complications; Z85.828 Personal history of other malignant neoplasm of skin; Z88.1 Allergy status to other antibiotic agents; Z79.84 Long term (current) use of oral hypoglycemic drugs; Z87.891 Personal history of nicotine dependence
CPT/HCPCS: 36415; 71045; 80053; 83735; 83874; 83880; 84484; 85025; 85610; 85730; 93005; 93041; 96374

== ENCOUNTER → 2020-04-27 | Outpatient (CLI) | payer MEDICARE ==
[~2020-04-27] MED LIST changes: +ACHYD1T PO; +CATHETER FLUSH 10 ML SYR IV PRN; +HOLD METFORMIN - RECEIVED CONTRAST 20 ML VIAL IV SCH; +IOHEXOL 350 MG/ML 100 ML (OMNIPAQUE 350) VIAL IV ONE; +NS 100 ML (IVPB) BAG IV ONE; +RT-ALBUTEROL SULF 2.5 MG/3 ML PRE-MIX VIAL INH ONE; +RT-ALBUTEROL SULF 2.5 MG/3 ML PRE-MIX VIAL ONE
[2020-04-27 09:25] LABS: GFR ESTIMATED > 60
[2020-04-27 09:26] LABS: BUN/CREATININE RATIO 17
[2020-04-27 09:27] LABS: ABG BASE EXCESS -0.2 MMOL/L (-2.5-2.5); ABG OXYGEN SATURATION 96 % (94-100); ABG PCO2 41 MMHG (35-45); ABG PH 7.38 (7.37-7.43); ABG PO2 84 MMHG (79-93); ABG TCO2 25.9 MMOL/L (21.0-31.0)
[2020-04-27 09:28] LABS: ALLENS TEST YES-POS; INSPIRED O2 ROOM AIR; PATIENT TEMP 35.6; VENTILATOR NO
--- NOTE | 2020-04-27 09:39 | NUR ---
PT WALKED THE WHOLE 6 MINUTES WITHOUT COMPLAINING OF SHORTNESS OF BREATH AND WITHOUT STOPPING. PT DID NOT DROP BELOW 91% SPO2 THE WHOLE ENTIRE WALK. Addendum: 04/27/20 at 0940 by RENAY MENDEZ RT Amended: Links added.
== END ==
LOC: RAD 07:44
PROVIDERS: ATTEND Nurse Practitioner Family
DX: J44.9 Chronic obstructive pulmonary disease, unspecified (principal); G47.33 Obstructive sleep apnea (adult) (pediatric); G47.36 Sleep related hypoventilation in conditions classified elsewhere; F17.211 Nicotine dependence, cigarettes, in remission
CPT/HCPCS: 36415; 36600; 82565; 82805; 84520; 94060; 94726; 94729; 94761

== ENCOUNTER → 2020-05-01 | Outpatient (CLI) | payer MEDICARE ==
[~2020-05-01] MED LIST changes: -RT-ALBUTEROL SULF 2.5 MG/3 ML PRE-MIX VIAL INH ONE; -RT-ALBUTEROL SULF 2.5 MG/3 ML PRE-MIX VIAL ONE
--- NOTE | 2020-05-01 15:49 | Diagnostic Imaging Report ---
PROCEDURE: CT chest with contrast only. TECHNIQUE: Multiple contiguous axial images were obtained through the chest after administration of intravenous contrast. Auto Exposure Controls were utilized during the CT exam to meet ALARA standards for radiation dose reduction. INDICATION: COPD, difficulty breathing. FINDINGS: There is some mild subsegmental atelectasis in the lingular segment of the left upper lobe. There is a subpleural nodule (indeterminate) in the left upper lobe measuring 4 mm, likely a scar. There is some heterogeneous air trapping with features of centrilobular emphysema, most pronounced bilaterally at the apices. There is no pneumothorax. No wero alveolar consolidation. No focal pneumonia. An additional 4 to 5 mm subpleural nodule in the right lower lobe is noted. IMPRESSION: Emphysematous changes in the lungs. Subcentimeter subpleural nodules in the right lower and left upper lobes, likely benign, but consider a followup in 1 year. Mild zones of atelectasis. No acute pneumonia, effusion, or pneumothorax. No lymphadenopathy. Dictated by: Dictated on workstation # [id number]
== END ==
LOC: RAD 14:17
PROVIDERS: ATTEND Nurse Practitioner Family
DX: J43.9 Emphysema, unspecified (principal); G47.33 Obstructive sleep apnea (adult) (pediatric); G47.36 Sleep related hypoventilation in conditions classified elsewhere; R91.8 Other nonspecific abnormal finding of lung field
CPT/HCPCS: 71260

== ENCOUNTER 2021-03-05 08:48 | Observation (INO) | payer MEDICARE ==
[~2021-03-05] VITALS: Ht 175 cm; Wt 127.0 kg
[~2021-03-05 08:48] MED LIST changes: -CATHETER FLUSH 10 ML SYR IV PRN; -HOLD METFORMIN - RECEIVED CONTRAST 20 ML VIAL IV SCH; -IOHEXOL 350 MG/ML 100 ML (OMNIPAQUE 350) VIAL IV ONE; -NS 100 ML (IVPB) BAG IV ONE
[2021-03-05] MEDS ORDERED: ACETAMINOPHEN 500 MG TAB (TYLENOL) ONE (08:59)
--- NOTE | 2021-03-05 09:06 | ED Dyspnea ---
General Stated Complaint: SOB Source of Information: Patient Exam Limitations: No Limitations History of Present Illness Date Seen by Provider: Mar 05, 2021 Time Seen by Provider: 08:55 Initial Comments Patient is a 70-year-old male who presents to the emergency department today with a chief complaint of shortness of breath. Patient states that his shortne ss of breath started in the middle of the night last night. He has had similar episodes in the past. Patient states that he has a history of COPD. He no longer smokes he quit 5 or 6 years ago. Patient denies any history of coronary artery disease or congestive heart failure. He is not having any chest pain, pressure or tightness. Patient states that he has not had a fever that he is aware of. He does feel quite warm today at presentation and has a temperature of 102.2. He has a cough but not productive of sputum. No abdominal pain nausea vomiting or diarrhea. No urinary complaints. No swelling in his legs. Patient is status post second Covid vaccination 3 weeks ago. Timing/Duration: 24 Hours Severity: Moderate Activities at Onset: Rest Modifying Factors: Worse With Activity; Improves With Albuterol Inhaler Allergies and Home Medications Allergies Coded Allergies: ceftriaxone (Verified Allergy, Intermediate, ITCHING, 10/30/18) Home Medications Atorvastatin Calcium 40 Mg Tablet, 40 MG PO DAILY, (Reported) Budesonide/Formoterol Fumarate 10.2 Gm Hfa.aer.ad, 2 PUFF IH BID, (Reported) Ipratropium/Albuterol Sulfate 14.7 Gm Aer.w.adap, 2 PUFF IH QID, (Reported) Metformin HCl 1,000 Mg Tablet, 1,000 MG PO BID, (Reported) Patient Home Medication List Home Medication List Reviewed: Yes Review of Systems Review of Systems Constitutional: see HPI EENTM: no symptoms reported Respiratory: cough, dyspnea on exertion, short of breath Cardiovascular: no symptoms reported Gastrointestinal: no symptoms reported Genitourinary: no symptoms reported Musculoskeletal: no symptoms reported Skin: no symptoms reported All Other Systems Reviewed Negative Unless Noted: Yes Past Mmguegk-Gzqyuw-Ndjsuf Hx Patient Social History Alcohol Beverage of Choice: Whiskey, [place] Former Smoker, Quit: Oct 30, 2014 2nd Hand Smoke Exposure: No Recent Hopitalizations: No Immunizations Up To Date Tetanus Booster (TDap): Unknown PED Vaccines UTD: Yes Date of Pneumonia Vaccine: Aug 30, 2018 Seasonal Allergies Seasonal Allergies: No Past Medical History Surgeries: No (Wound debriedment) Respiratory: Yes COPD Cardiac: No Hypertension Neurological: No Sexually Transmitted Disease: No HIV/AIDS: No Genitourinary: No Gastrointestinal: No Musculoskeletal: No Endocrine: Yes (patient states is border line) Diabetes, Non-Insulin dep HEENT: No Cancer: Yes Skin Did You Recieve Any Treatments: Yes What Type of Treatment Did You: Surgical Intervention Psychosocial: No Integumentary: Yes (HX of Staph) Blood Disorders: No Adverse Reaction/Blood Tranf: No Physical Exam Vital Signs Vital Signs - First Documented Capillary Refill : Height, Weight, BMI Height: 5'8.00" Weight: 240lbs. 1.0oz. 108.356960ld; 36.00 BMI Method:Stated General Appearance: WD/WN, Mild Distress Neck: Non Tender, Supple Respiratory: Decreased Breath Sounds, Rhonci (scattered posterior at bases) Cardiovascular: Regular Rate, Rhythm, Tachycardia Gastrointestinal: Non Tender, Soft Extremity: Normal Capillary Refill, Normal Inspection, Normal Range of Motion, Non Tender, No Calf Tenderness, No Pedal Edema Neurologic/Psychiatric: Alert, Oriented x3, No Motor/Sensory Deficits, Normal Mood/Affect Skin: Normal Color, Diaphoresis Focused Exam Lactate Level 03/05/21 09:00: Lactic Acid Level 2.28*H Lactic Acid Level Laboratory Tests Test 03/05/21 09:00 Lactic Acid Level 2.28 MMOL/L (0.50-2.00) *H Progress/Results/Core Measures Results/Orders Lab Results Laboratory Tests Test 03/05/21 09:00 Range/Units White Blood Count 16.6 H 4.3-11.0 10^3/uL Red Blood Count 5.62 H 4.30-5.52 10^6/uL Hemoglobin 16.6 13.3-17.7 g/dL Hematocrit 50 40-54 % Mean Corpuscular Volume 90 80-99 fL Mean Corpuscular Hemoglobin 30 25-34 pg Mean Corpuscular Hemoglobin Concent 33 32-36 g/dL Red Cell Distribution Width 13.6 10.0-14.5 % Platelet Count 247 130-400 10^3/uL Mean Platelet Volume 9.3 9.0-12.2 fL Immature Granulocyte % (Auto) 1 % Neutrophils (%) (Auto) 84 H 42-75 % Lymphocytes (%) (Auto) 5 L 12-44 % Monocytes (%) (Auto) 9 0-12 % Eosinophils (%) (Auto) 0 0-10 % Basophils (%) (Auto) 0 0-10 % Neutrophils # (Auto) 14.0 H 1.8-7.8 10^3/uL Lymphocytes # (Auto) 0.9 L 1.0-4.0 10^3/uL Monocytes # (Auto) 1.5 H 0.0-1.0 10^3/uL Eosinophils # (Auto) 0.0 0.0-0.3 10^3/uL Basophils # (Auto) 0.1 0.0-0.1 10^3/uL Immature Granulocyte # (Auto) 0.2 H 0.0-0.1 10^3/uL Neutrophils % (Manual) 79 % Lymphocytes % (Manual) 5 % Monocytes % (Manual) 9 % Band Neutrophils 7 % Blood Morphology Comment NORMAL Prothrombin Time 13.5 12.2-14.7 SEC INR Comment 1.0 0.8-1.4 Activated Partial Thromboplast Time 28 24-35 SEC Sodium Level 133 L 135-145 MMOL/L Potassium Level 4.5 3.6-5.0 MMOL/L Chloride Level 100 98-107 MMOL/L Carbon Dioxide Level 21 21-32 MMOL/L Anion Gap 12 5-14 MMOL/L Blood Urea Nitrogen 16 7-18 MG/DL Creatinine 1.08 0.60-1.30 MG/DL Estimat Glomerular Filtration Rate > 60 BUN/Creatinine Ratio 15 Glucose Level 189 H 70-105 MG/DL Lactic Acid Level 2.28 *H 0.50-2.00 MMOL/L Calcium Level 9.3 8.5-10.1 MG/DL Corrected Calcium 9.1 8.5-10.1 MG/DL Total Bilirubin 1.0 0.1-1.0 MG/DL Aspartate Amino Transf (AST/SGOT) 34 5-34 U/L Alanine Aminotransferase (ALT/SGPT) 43 0-55 U/L Alkaline Phosphatase 49 40-136 U/L Total Creatine Kinase 426 H 30-200 U/L Creatine Kinase MB 5.3 <6.6 NG/ML Troponin I < 0.028 <0.028 NG/ML Total Protein 7.7 6.4-8.2 GM/DL Albumin 4.2 3.2-4.5 GM/DL Micro Results Microbiology 03/05/21 Influenza Types A,B Antigen (PATRICIO) - Final, Complete My Orders Orders - BALDEMAR PATTERSON MD Cbc With Automated Diff (03/05/21 09:01) Comprehensive Metabolic Panel (03/05/21:01) Blood Culture (03/05/21:01) Sputum Culture (03/05/21:01) Urinalysis (03/05/21:) Urine Culture (03/05/21:) Protime With Inr (03/05/21:) Partial Thromboplastin Time (03/05/21:) Chest 1 View, Ap/Pa Only (03/05/21:) Acetaminophen Tablet (Tylenol Tablet) (03/05/21 09:15) Ed Iv/Invasive Line Start (03/05/21:01) Ed Iv/Invasive Line Start (03/05/21:01) Ekg Tracing (03/05/21:) Vital Signs Adult Sepsis Patie Q15M (03/05/21 09:01) O2 (03/05/21 09:01) Remove Rings In Anticipation O (03/05/21 09:01) Lactic Acid Analyzer (03/05/21 09:01) Ns Iv 1000 Ml (Sodium Chloride 0.9%) (03/05/21 09:15) Acetaminophen Tablet (Tylenol Tablet) (03/05/21 08:59) Albuterol/Ipra Inhalation Soln (Duoneb I (03/05/21 09:15) Svn Small Volume Nebulizer (03/05/21 09:06) Influenza A And B Antigens (03/05/21 09:06) Creatine Kinase (03/05/21 09:11) Creatine Kinase Mb (03/05/21 09:11) Troponin I (03/05/21 09:11) Manual Differential (03/05/21 09:00) Levofloxacin 750 Mg/150 Ml Iv (Levaquin (03/05/21 10:15) Vancomycin Injection (Vancomycin Injecti (03/05/21 10:15) Medications Given in ED Current Medications Medications Dose Ordered Sig/Elvira Route Start Time Stop Time Status Last Admin Dose Admin Acetaminophen 1,000 mg ONCE PRN PO 03/05/21 09:15 03/05/21 09:15 DC 03/05/21 09:06 1,000 MG Albuterol/ Ipratropium 3 ml ONCE ONCE INH 03/05/21 09:15 03/05/21 09:16 DC 03/05/21 09:38 3 ML Levofloxacin/ Dextrose 150 ml @ 100 mls/hr ONCE ONCE IV 03/05/21 10:15 03/05/21 11:44 03/05/21 10:18 100 MLS/HR Vancomycin HCl 1000 mg/Sodium Chloride 250 ml @ 250 mls/hr ONCE ONCE IV 03/05/21 10:15 03/05/21 11:14 03/05/21 10:18 250 MLS/HR Vital Signs/I&O 03/05/21 03/05/21 03/05/21 08:50 08:50 09:39 Temp 39.0 Pulse 144 Resp 28 B/P (MAP) 157/94 (115) Pulse Ox 94 94 92 O2 Delivery Nasal Cannula Nasal Cannula Nasal Cannula O2 Flow Rate 3.00 3.00 3.00 Progress Progress Note : Time: 10:53 Progress Note Patient reexamined after breathing treatment he is definitely moving much more air however since oxygen saturations are still at about 91% on 2 L of oxygen per nasal cannula. Patient is convinced that he should stay in the emergency department for the night. Antibiotics, Levaquin and vancomycin have been hung. Patient has had 1 L of normal saline and heart rate is down to the low 120s. P atient still dyspneic when he is talking. He is able to complete full sentences. Feeling a little bit better after his breathing treatment. Patient noted to have bibasilar infiltrates on chest x-ray. Procalcitonin is pending at the time of admission. Case discussed with Dr. Luz who accepts the patient for admission. Initial ECG Impression Date: Mar 05, 2021 Initial ECG Impression Time: 09:01 Initial ECG Rate: 138 Initial ECG Rhythm: S.Tach Initial ECG Intervals: QRS (105) Initial ECG Impression: Nonspecific Changes Comment [address] segment elevation noted in leads II, III and aVF as well as half a mill imeter in leads V3 V4 and possibly V5. No reciprocal changes noted patient has a left anterior fascicular block Diagnostic Imaging Diagonstic Imaging: Xray Plain Films/CT/US/NM/MRI: chest Comments chest xray bibasilar infiltrates Departure Communication (Admissions) Time/Spoke to Admitting Phy: 10:[address] Luz who accepts the patient for admission to [facility] Primary Impression: Community acquired pneumonia Qualified Codes: J18.9 - Pneumonia, unspecified organism Disposition: ADMITTED INPATIENT Condition: Stable Admissions Decision to Admit Reason: Admit from ER (General) Decision to Admit/Date: Mar 05, 2021 Time/Decision to Admit Time: 10:50 Departure-Patient Inst. Referrals: [facility]/JENNIFER (PCP) Primary Care Physician JOSÉ LUIS RODRÍGUEZ (Family) Primary Care Physician BALDEMAR PATTERSON MD Mar 05, 2021 09:06
[2021-03-05 09:15] LABS: BASOPHILS # (AUTO) 0.1 10^3/uL (0.0-0.1); BASOPHILS % (AUTO) 0 % (0-10); EOSINOPHILS % (AUTO) 0 % (0-10); HEMATOCRIT 50 % (40-54); HEMOGLOBIN 16.6 g/dL (13.3-17.7); LYMPHOCYTES # (AUTO) 0.9 10^3/uL (1.0-4.0); LYMPHOCYTES % (AUTO) 5 % (12-44); MEAN CORPUSCULAR HEMOGLOBIN 30 pg (25-34); MEAN CORPUSCULAR HGB CONC 33 g/dL (32-36); MEAN CORPUSCULAR VOLUME 90 fL (80-99); MEAN PLATELET VOLUME 9.3 fL (9.0-12.2); MONOCYTES # (AUTO) 1.5 10^3/uL (0.0-1.0); MONOCYTES % (AUTO) 9 % (0-12); NEUTROPHILS % (AUTO) 84 % (42-75); PLATELET COUNT 247 10^3/uL (130-400); WHITE BLOOD COUNT 16.6 10^3/uL (4.3-11.0)
[2021-03-05] MEDS ORDERED: RT-ALBUTEROL/IPRATROPIUM 3 ML (DUONEB) VIAL INH ONE (09:15)
[2021-03-05] MEDS ORDERED: NS IV 1000 ML 1,000 ML IV SCH (09:15)
[2021-03-05] MEDS ORDERED: ACETAMINOPHEN 500 MG TAB (TYLENOL) PO PRN ×2 (09:15→20:15)
[2021-03-05] MEDS ORDERED: ZOLPIDEM (09:26)
[2021-03-05] MEDS ORDERED: HYDR-3820 PO (09:26)
[2021-03-05] MEDS ORDERED: FLUT1BLS3 INH (09:26)
[2021-03-05 09:34] LABS: ALBUMIN 4.2 GM/DL (3.2-4.5); CHLORIDE 100 MMOL/L (98-107); POTASSIUM 4.5 MMOL/L (3.6-5.0); SODIUM 133 MMOL/L (135-145)
[2021-03-05 09:36] LABS: BAND NEUTROPHILS 7 %; CALCIUM 9.3 MG/DL (8.5-10.1); LYMPHOCYTES % (MANUAL) 5 %; MONOCYTES % (MANUAL) 9 %; NEUTROPHILS % (MANUAL) 79 %; RBC MORPH NORMAL
[2021-03-05 09:37] LABS: GLUCOSE 189 MG/DL (70-105); TOTAL PROTEIN 7.7 GM/DL (6.4-8.2)
[2021-03-05 09:38] LABS: CARBON DIOXIDE 21 MMOL/L (21-32); PROTHROMBIN TIME PATIENT 13.5 SEC (12.2-14.7)
[2021-03-05 09:40] LABS: ALKALINE PHOSPHATASE 49 U/L (40-136); CREATININE SERUM 1.08 MG/DL (0.60-1.30); GFR ESTIMATED > 60
[2021-03-05 09:41] LABS: BUN/CREATININE RATIO 15
[2021-03-05 09:43] LABS: ALANINE AMINOTRANSFERASE 43 U/L (0-55)
[2021-03-05 09:46] LABS: CREATINE KINASE 426 U/L (30-200)
[2021-03-05 09:52] LABS: CREATINE KINASE MB 5.3 NG/ML (<6.6)
[2021-03-05] MEDS ORDERED: VANCOMYCIN INJECTION 1,000 MG in NS (IVPB) 250 ML IV ONE (10:15)
--- NOTE | 2021-03-05 10:16 | Diagnostic Imaging Report ---
INDICATION: sepsis. TECHNIQUE: Single view chest 9:35 AM. CORRELATION STUDY: 11/12/2019 FINDINGS: Heart size and mediastinum are generally stable. There is prominent appearance about central pulmonary arteries. Hyperinflated lung sheth. Chronic brain changes about the lung parenchyma. No definitive acute infiltrate. IMPRESSION: 1. Chronic appearing emphysematous change about the lung parenchyma. No acute cardiopulmonary abnormality. Prominent appearance about central pulmonary arteries may reflect underlying pulmonary arterial hypertension. Dictated by: Dictated on workstation # [id number]
--- NOTE | 2021-03-05 11:04 | History & Physical-Hospitalist ---
History of Present Illness HPI/Chief Complaint CC: Fever with SOB HPI: This is a 67yoWM clinic pt of [facility] who presented to the ER with fever and SOB found to have 102.4 fever with tachycardia and sepsis from pneumonia. He had received both covid vaccines and flu was negative. The decision was made to place on antibiotics, IV fluids and supportive care. He reports he uses O2 at home every once and while and he is a non smoker currently. He is retired from [employer]. Source: patient Exam Limitations: no limitations Date Seen 03/05/21 Time Seen by a Provider: 11:00 Attending Physician PCP [facility] Referring Physician Date of Admission Home Medications & Allergies Home Medications Reviewed patient Home Medication Reconciliation performed by pharmacy medication reconciliations remanufacturing technician and/or nursing. Patients Allergies have been reviewed. Allergies Allergies Coded Allergies ceftriaxone (Verified Allergy, Intermediate, ITCHING, 10/30/18) Patient Social History Marrital Status: single Employed/Student: retired Tobacco Use?: No Smoking Status: Former Smoker Alcohol Use?: No Immunizations Up To Date Second COVID19 Vaccination Romero: 02/12/21 Date of Pneumonia Vaccine: Aug 30, 2018 Current Status Primary Language: Cape Verdean Past Medical History COPD Insomnia Family Medical History Family Hx: HTN Review of Systems Constitutional: see HPI, fever Respiratory: dyspnea on exertion, short of breath Physical Exam Physical Exam Vital Signs Vital Signs - First Documented 03/05/21 12:00 FiO2 32 Capillary Refill : Less Than 3 Seconds Height, Weight, BMI Height: 5'8.00" Weight: 240lbs. 1.0oz. [id number]; 41.00 BMI Method:Stated General Appearance: No Apparent Distress, Chronically ill Eyes: Right Eye Normal Inspection, Right Eye PERRL HEENT: PERRL/EOMI, Normal ENT Inspection, Pharynx Normal, Moist Mucous Membranes Neck: Full Range of Motion, Normal Inspection, Non Tender Respiratory: Chest Non Tender, No Accessory Muscle Use, No Respiratory Distress, Crackles, Decreased Breath Sounds, Wheezing Cardiovascular: Regular Rate, Rhythm, No Edema, No Gallop, No JVD, No Murmur, Normal Peripheral Pulses Gastrointestinal: Normal Bowel Sounds, No Organomegaly, No Pulsatile Mass, Non Tender, Soft Back: Normal Inspection, No CVA Tenderness, No Vertebral Tenderness Extremity: Normal Capillary Refill, Normal Inspection, Normal Range of Motion, Non Tender, No Calf Tenderness, No Pedal Edema Neurologic/Psychiatric: Alert, Oriented x3, No Motor/Sensory Deficits, Normal Mood/Affect Skin: Normal Color, Warm/Dry Lymphatic: No Adenopathy Results Results/Procedures Labs Laboratory Tests 03/05/21 09:00 03/06/21 05:08 Patient resulted labs reviewed. Assessment/Plan Admission Diagnosis Assessment: Sepsis PNA Fever AECOPD Insomnia Plan: Supportive care IV abx IVF Home meds Steroids ICS Lovenox Admission Status: Inpatient Order (span 2 midnights) Reason for Inpatient Admission: sepsis from PNA Diagnosis/Problems Diagnosis/Problems (1) Community acquired pneumonia PIA WINKLER DO Mar 05, 2021 11:04
[2021-03-05 11:30] VITALS: BP 122/74
[2021-03-05 11:56] VITALS: BP 122/74
[2021-03-05 12:00] VITALS: BP 157/94
[2021-03-05] MEDS ORDERED: RT-ALBUTEROL SULF 2.5 MG/3 ML PRE-MIX VIAL IH PRN (12:15)
[2021-03-05] MEDS ORDERED: CATHETER FLUSH 10 ML SYR IV PRN (12:15)
[2021-03-05] MEDS: NS IV 1000 ML 1,000 ML IV SCH ×2 (12:45→18:19)
[2021-03-05] MEDS: RT-ALBUTEROL/IPRATROPIUM 3 ML (DUONEB) VIAL INH SCH ×3 (13:13→20:50)
[2021-03-05] MEDS ORDERED: ALBU18HF2 INH (14:21)
[2021-03-05] MEDS ORDERED: OMEG-160 PO (14:21)
[2021-03-05] MEDS ORDERED: ASPI-1238 PO (14:21)
[2021-03-05] MEDS ORDERED: ZOLP10TA PO (14:21)
[2021-03-05] MEDS ORDERED: RT-ALBUTEROL/IPRATROPIUM 3 ML (DUONEB) VIAL IH SCH (15:00)
[2021-03-05 16:00] VITALS: BP 165/71
[2021-03-05] MEDS ORDERED: RT-ALBUTEROL SULF 2.5 MG/3 ML PRE-MIX VIAL INH PRN ×2 (16:00→20:15)
[2021-03-05 20:00] VITALS: BP 143/67
[2021-03-05] MEDS ORDERED: diphenhydrAMINE 25 MG TAB (BENADRYL) PO PRN (20:15)
[2021-03-05] MEDS ORDERED: ONDANSETRON 4 MG/2 ML (SDV) Z0FRAN IVP PRN (20:15)
[2021-03-05] MEDS ORDERED: CALCIUM CARBONATE 500 MG (TUMS) TAB.CHEW PO PRN (20:15)
[2021-03-05] MEDS ORDERED: morphine INJ 10 MG/ML 1ML (SYR OR VIAL) IVP PRN (20:15)
[2021-03-05] MEDS ORDERED: MELATONIN 3 MG TABLET PO PRN (20:15)
[2021-03-05] MEDS ORDERED: ENOXAPARIN 40 MG/0.4 ML (LOVENOX) SYR SC SCH (20:15)
[2021-03-05] MEDS ORDERED: DOCUSATE SODIUM 100 MG (COLACE) CAP PO PRN (20:15)
[2021-03-05] MEDS ORDERED: ALPRAZolam 0.25 MG (XANAX) TAB PO PRN (20:15)
[2021-03-05] MEDS ORDERED: LOPERAMIDE 2 MG (IMODIUM) TABLET PO PRN (20:15)
[2021-03-05] MEDS ORDERED: morphine INJ 4 MG/ML 1 ML (VIAL/SYRINGE) IV PRN (20:30)
[2021-03-05] MEDS ORDERED: ACETAMINOPHEN 325 MG TABLET PO PRN (20:30)
[2021-03-05] MEDS: RT--FLUTICASONE/SALMETEROL 232-14 (AIRDUO RespiCLICK) IH SCH (20:50)
[2021-03-05] MEDS ORDERED: NON-FORMULARY MEDICATION 1 EA EA (Zolpidem Tartrate (Ambien) 10 MG) PO SCH (21:00)
[2021-03-05] MEDS: MONTELUKAST 10 MG (SINGULAIR) TAB PO SCH (21:04)
[2021-03-05] MEDS: methylPREDNISolone 40 MG/ML (Solu-MEDROL) VIAL IV SCH ×2 (21:04→21:05)
[2021-03-05] MEDS: ENOXAPARIN 40 MG/0.4 ML (LOVENOX) SYR SC SCH (21:04)
[2021-03-05] MEDS: ZOLPIDEM 5 MG (AMBIEN) TAB PO SCH (21:04)
[2021-03-05] MEDS: SENNA W/DOCUSATE (SENOKOT S) TABLET PO SCH (21:04)
[2021-03-05 23:40] VITALS: BP 149/88
[2021-03-06] MEDS: RT-ALBUTEROL/IPRATROPIUM 3 ML (DUONEB) VIAL INH SCH ×6 (02:14→21:21)
[2021-03-06 03:41] VITALS: BP 127/68
[2021-03-06] MEDS: NS IV 1000 ML 1,000 ML IV SCH (03:45)
[2021-03-06 05:30] LABS: BASOPHILS % (AUTO) 0 % (0-10)
[2021-03-06 05:32] LABS: EOSINOPHILS % (AUTO) 0 % (0-10); HEMATOCRIT 50 % (40-54); HEMOGLOBIN 16.3 g/dL (13.3-17.7); LYMPHOCYTES # (AUTO) 1.1 10^3/uL (1.0-4.0); LYMPHOCYTES % (AUTO) 8 % (12-44); MEAN CORPUSCULAR HEMOGLOBIN 30 pg (25-34); MEAN CORPUSCULAR HGB CONC 33 g/dL (32-36); MEAN CORPUSCULAR VOLUME 92 fL (80-99); MONOCYTES # (AUTO) 0.4 10^3/uL (0.0-1.0); MONOCYTES % (AUTO) 3 % (0-12); NEUTROPHILS # (AUTO) 12.7 10^3/uL (1.8-7.8); NEUTROPHILS % (AUTO) 88 % (42-75); PLATELET COUNT 201 10^3/uL (130-400); WHITE BLOOD COUNT 14.4 10^3/uL (4.3-11.0)
[2021-03-06 05:39] LABS: ALBUMIN 3.7 GM/DL (3.2-4.5); CHLORIDE 106 MMOL/L (98-107); POTASSIUM 5.1 MMOL/L (3.6-5.0); SODIUM 135 MMOL/L (135-145)
[2021-03-06 05:40] LABS: CALCIUM 9.2 MG/DL (8.5-10.1)
[2021-03-06 05:41] LABS: GLUCOSE 214 MG/DL (70-105); TOTAL PROTEIN 7.2 GM/DL (6.4-8.2)
[2021-03-06 05:42] LABS: CARBON DIOXIDE 17 MMOL/L (21-32)
[2021-03-06 05:43] LABS: BILIRUBIN,TOTAL 0.9 MG/DL (0.1-1.0)
[2021-03-06 05:45] LABS: ALKALINE PHOSPHATASE 43 U/L (40-136); CREATININE SERUM 0.96 MG/DL (0.60-1.30); GFR ESTIMATED > 60
[2021-03-06 05:46] LABS: BUN/CREATININE RATIO 14
[2021-03-06 05:48] LABS: ALANINE AMINOTRANSFERASE 31 U/L (0-55)
[2021-03-06] MEDS: UMECLIDINIUM BROMIDE (INCRUSE ELLIPTA) 7'S IH SCH (07:32)
[2021-03-06] MEDS: RT--FLUTICASONE/SALMETEROL 232-14 (AIRDUO RespiCLICK) IH SCH ×2 (07:32→18:26)
[2021-03-06 08:00] VITALS: BP 141/76
[2021-03-06] MEDS ORDERED: NON-FORMULARY MEDICATION 1 EA EA (Fluticasone/Umeclidin/Vilanter (Trelegy Ellipta 100-62.5 INH SCH (09:00)
[2021-03-06] MEDS ORDERED: NON-FORMULARY MEDICATION 1 EA EA (Omega-3/Dha/Epa/Fish Oil (Fish Oil 1,000 mg Softgel) 1 E PO SCH (09:00)
[2021-03-06] MEDS: ENOXAPARIN 40 MG/0.4 ML (LOVENOX) SYR SC SCH ×2 (09:46→21:36)
[2021-03-06] MEDS: OMEGA 3 (FISH OIL) 1000 MG CAP PO SCH (09:46)
[2021-03-06] MEDS: methylPREDNISolone 40 MG/ML (Solu-MEDROL) VIAL IV SCH ×2 (09:46→21:37)
[2021-03-06] MEDS: ASPIRIN E.C. 81 MG (ECOTRIN) TAB PO SCH (09:46)
[2021-03-06] MEDS: SENNA W/DOCUSATE (SENOKOT S) TABLET PO SCH ×2 (09:47→21:37)
--- NOTE | 2021-03-06 11:47 | Progress Note - Hospitalist ---
SRINI WATTS, MED STUDENT 03/06/21 1147: Subjective HPI/CC On Admission CC: Fever with SOB HPI: This is a 67yoWM clinic pt of [facility] who presented to the ER with fever and SOB found to have 102.4 fever with tachycardia and sepsis from pneumonia. He had received both covid vaccines and flu was negative. The decision was made to place on antibiotics, IV fluids and supportive care. He reports he uses O2 at home every once and while and he is a non smoker currently. He is retired from [employer]. Subjective/Events-last exam Pt is doing well this morning and reports decreased shortness of breath and cough. He believes his cough is related to his shortness of breath. He denies any sputum production. He would like to go home today but is agreeable to staying another day. He does report that he has been out of his home inhaler for a few days. Review of Systems General: No Chills, No Night Sweats, No Fatigue, No Malaise, No Appetite, No Other HEENT: No Head Aches, No Visual Changes, No Eye Pain, No Ear Pain, No Dysphasia, No Sinus Congestion, No Post Nasal Drip, No Sore Throat, No Other Pulmonary: Dyspnea, Cough Cardiovascular: No: Chest Pain, Palpitations, Orthopnea, Paroxysmal Noc. Dyspnea, Edema, Lt Headedness, Other Gastrointestinal: No: Nausea, Vomiting, Abdominal Pain, Diarrhea, Constipation, Melena, Hematochezia, Other Genitourinary: No Dysuria, No Frequency, No Incontinence, No Hematuria, No Retention, No Other Musculoskeletal: No: other, neck pain, shoulder pain, arm pain, back pain, hand pain, leg pain, foot pain Neurological: No: Weakness, Numbness, Incoordination, Change in speech, Confusion, Seizures, Other Focused Exam Lactate Level 03/05/21 09:00: Lactic Acid Level 2.28*H 03/05/21 11:20: Lactic Acid Level 1.85 Objective Exam Vital Signs Vital Signs Date Time Temp Pulse Resp B/P (MAP) Pulse Ox O2 Delivery O2 Flow Rate FiO2 03/06/21 10:49 94 Nasal Cannula 3.00 03/06/21 08:00 35.9 96 18 141/76 (97) 03/05/21 12:00 32 Capillary Refill : Less Than 3 Seconds General Appearance: No Apparent Distress, WD/WN Neck: Full Range of Motion, Normal Inspection, Non Tender, Supple Respiratory: Chest Non Tender, Lungs Clear, Normal Breath Sounds, No Accessory Muscle Use, No Respiratory Distress Cardiovascular: Regular Rate, Rhythm, No Edema, No Gallop, No JVD, No Murmur, Normal Peripheral Pulses Gastrointestinal: Normal Bowel Sounds, No Organomegaly, No Pulsatile Mass, Non Tender, Soft Extremity: Normal Capillary Refill, Normal Inspection, Non Tender Neurologic/Psychiatric: Alert, Oriented x3 Results/Procedures Lab Laboratory Tests 03/06/21 05:08 Patient resulted labs reviewed. Assessment/Plan Assessment and Plan Assess & Plan/Chief Complaint Mr. Rodriguez is a 70 y/o M presenting for shortness of breath and sepsis likely 2/2 to pneumonia and COPD exacerbation #Pneumonia - CXR is clear - T 39, HR 144, RR 28 on admission -> SIRS criteria - Vitals WNL this morning - Levofloxacin and vancomycin in the ED - Increased shortness of breath and cough - 3L oxygen Plan: > D/C vancomycin > Continue levofloxacin > Continue 3L oxygen COPD - Umeclinidium bromide inhaler - Methylprednisolone 40mg - Sx improvement Plan: > Continue steroids and inhaler for today Hyperkalemia - K 5.1 this morning - Asymptomatic Plan: > Continue to monitor Dispo: Discharge tomorrow SANDI WINKLER DO 03/07/21 0511: Subjective HPI/CC On Admission Date Seen by Provider: Mar 06, 2021 Time Seen by Provider: 10:00 Subjective/Events-last exam Pt much improved No SOB IV steroids have really helped him Inhaled Corticosteroids have really helped him Antibiotic maintained Overall much improved Labs remain stable, and improved Lactic acid is normal Review of Systems General: Fatigue Pulmonary: Cough Objective Exam General Appearance: No Apparent Distress, WD/WN, Chronically ill Respiratory: Lungs Clear Cardiovascular: Regular Rate, Rhythm Neurologic/Psychiatric: Alert, Oriented x3, No Motor/Sensory Deficits, Normal Mood/Affect Assessment/Plan Assessment and Plan Assess & Plan/Chief Complaint DC home tomorrow Supervisory-Addendum Brief Verification & Attestation Participated in pt care: history, MDM, physical Personally performed: exam, history, MDM, supervision of care Care discussed with: Medical Student Procedures: n/a Results interpretation: Verified all documentation Verification and Attestation of Medical Student E/M Service A medical student performed and documented this service in my presence. I review ed and verified all information documented by the medical student and made modifications to such information, when appropriate. I personally performed the physical exam and medical decision making. Sandi Winkler, Mar 07, 2021,05:11 SRINI WATTS, MED STUDENT Mar 06, 2021 11:47 SANDI WINKLER DO Mar 07, 2021 05:11
[2021-03-06 12:00] VITALS: BP 154/73
[2021-03-06 15:59] VITALS: BP 131/79
[2021-03-06 20:46] VITALS: BP 113/72
[2021-03-06] MEDS: ZOLPIDEM 5 MG (AMBIEN) TAB PO SCH (21:36)
[2021-03-06] MEDS: MONTELUKAST 10 MG (SINGULAIR) TAB PO SCH (21:36)
[2021-03-06 23:33] VITALS: BP 118/57
[2021-03-07] MEDS: RT-ALBUTEROL/IPRATROPIUM 3 ML (DUONEB) VIAL INH SCH (02:01)
[2021-03-07 04:30] VITALS: BP 139/76
[2021-03-07 06:08] LABS: BASOPHILS % (AUTO) 0 % (0-10); EOSINOPHILS % (AUTO) 0 % (0-10); HEMATOCRIT 47 % (40-54); HEMOGLOBIN 15.4 g/dL (13.3-17.7); LYMPHOCYTES # (AUTO) 1.3 10^3/uL (1.0-4.0); LYMPHOCYTES % (AUTO) 7 % (12-44); MEAN CORPUSCULAR HEMOGLOBIN 30 pg (25-34); MEAN CORPUSCULAR HGB CONC 33 g/dL (32-36); MEAN CORPUSCULAR VOLUME 92 fL (80-99); MEAN PLATELET VOLUME 9.8 fL (9.0-12.2); MONOCYTES # (AUTO) 0.7 10^3/uL (0.0-1.0); MONOCYTES % (AUTO) 4 % (0-12); NEUTROPHILS # (AUTO) 15.2 10^3/uL (1.8-7.8); NEUTROPHILS % (AUTO) 86 % (42-75); PLATELET COUNT 253 10^3/uL (130-400); WHITE BLOOD COUNT 17.6 10^3/uL (4.3-11.0)
[2021-03-07 06:12] VITALS: BP 139/76
[2021-03-07 06:20] LABS: ALBUMIN 3.7 GM/DL (3.2-4.5)
[2021-03-07 06:21] LABS: CHLORIDE 103 MMOL/L (98-107); POTASSIUM 4.6 MMOL/L (3.6-5.0); SODIUM 138 MMOL/L (135-145)
[2021-03-07 06:22] LABS: CALCIUM 8.9 MG/DL (8.5-10.1)
[2021-03-07 06:23] LABS: GLUCOSE 265 MG/DL (70-105)
[2021-03-07 06:24] LABS: CARBON DIOXIDE 20 MMOL/L (21-32)
[2021-03-07 06:25] LABS: BILIRUBIN,TOTAL 0.4 MG/DL (0.1-1.0)
[2021-03-07 06:26] LABS: ALKALINE PHOSPHATASE 53 U/L (40-136)
[2021-03-07 06:27] LABS: CREATININE SERUM 1.05 MG/DL (0.60-1.30); GFR ESTIMATED > 60
[2021-03-07 06:28] LABS: BUN/CREATININE RATIO 18
[2021-03-07 06:30] LABS: ALANINE AMINOTRANSFERASE 27 U/L (0-55)
[2021-03-07 08:00] VITALS: BP 128/60
[2021-03-07] MEDS: UMECLIDINIUM BROMIDE (INCRUSE ELLIPTA) 7'S IH SCH (08:05)
[2021-03-07] MEDS: RT--FLUTICASONE/SALMETEROL 232-14 (AIRDUO RespiCLICK) IH SCH (08:05)
[2021-03-07] MEDS: methylPREDNISolone 40 MG/ML (Solu-MEDROL) VIAL IV SCH (08:29)
[2021-03-07] MEDS: ENOXAPARIN 40 MG/0.4 ML (LOVENOX) SYR SC SCH (08:29)
[2021-03-07] MEDS: OMEGA 3 (FISH OIL) 1000 MG CAP PO SCH (08:30)
[2021-03-07] MEDS: ASPIRIN E.C. 81 MG (ECOTRIN) TAB PO SCH (08:30)
[2021-03-07] MEDS: SENNA W/DOCUSATE (SENOKOT S) TABLET PO SCH (08:30)
[2021-03-07] MEDS ORDERED: RT-ALBUTEROL/IPRATROPIUM 3 ML (DUONEB) VIAL INH SCH (09:00)
[2021-03-07] MEDS ORDERED: PRED10TA22 PO (11:11)
[2021-03-07] MEDS ORDERED: LEVO750T39 PO (11:11)
--- NOTE | 2021-03-07 11:12 | Discharge Summary ---
Discharge Summary Hospital Course Was the Problem List Reviewed?: Yes Problems/Dx: (1) Community acquired pneumonia Hospital Course Date of Admission: Mar 05, 2021 at 10:47 Admission Diagnosis : Family Physician/Provider: Cleo Swartz Date of Discharge: 03/07/21 Discharge Diagnosis: CAP, AECOPD, hypoxia Hospital Course: The following information is only a summary of the PT admission while at [facility] and is not all inclusive. Please Review the entire chart for more information. Mr. Flavio Rodriguez is a 70 y/o M w/ PMH of COPD who presented to the ED on 03/05 for fever and shortness of breath. On admission to the Internal Medicine service, his vitals included fever at 39, tachycardia 144, tachypnea at 28, hypertension at 157/94, and WBCs at 16.6. He was started on IV methylprednisolone, levofloxacin, montelukast, umclidium bromide, and placed on 3L oxygen. CXR done while here demonstrated pulmonary hypertension and emphysema. Mr. Rodriguez reported that he had been out of his inhaler prior to admission and that his symptoms of shortness of breath began after discontinuation of his inhaler. While at [facility], Mr. Rodriguez received 3 days worth of antibiotics, steroids, and inhaler therapy resulting in symptomatic improvement of his breathing, resolution of his fever, tachycardia, and tachypnea. He is being discharged on 03/07 with a steroid taper, levofloxacin, 2L O2 for use with exertion. He is to follow up with his PCP, [facility] for his COPD exacerbation. Mr. Rodriguez is anxious to leave and is unwilling to stay for longer. SRINI WATTS, MED STUDENT Labs and Pending Lab Test: Laboratory Tests 03/07/21 05:34: White Blood Count 17.6H, Red Blood Count 5.10, Hemoglobin 15.4, Hematocrit 47, Mean Corpuscular Volume 92, Mean Corpuscular Hemoglobin 30, Mean Corpuscular Hemoglobin Concent 33, Red Cell Distribution Width 13.9, Platelet Count 253, Mean Platelet Volume 9.8, Immature Granulocyte % (Auto) 2, Neutrophils (%) (Auto) 86H, Lymphocytes (%) (Auto) 7L, Monocytes (%) (Auto) 4, Eosinophils (%) (Auto) 0, Basophils (%) (Auto) 0, Neutrophils # (Auto) 15.2H, Lymphocytes # (Auto) 1.3, Monocytes # (Auto) 0.7, Eosinophils # (Auto) 0.0, Basophils # (Auto) 0.0, Immature Granulocyte # (Auto) 0.4H, Sodium Level 138, Potassium Level 4.6, Chloride Level 103, Carbon Dioxide Level 20L, Anion Gap 15H, Blood Urea Nitrogen 19H, Creatinine 1.05, Estimat Glomerular Filtration Rate > 60, BUN/Creatinine Ratio 18, Glucose Level 265H, Calcium Level 8.9, Corrected Calcium 9.1, Total Bilirubin 0.4, Aspartate Amino Transf (AST/SGOT) 14, Alanine Aminotransferase (ALT/SGPT) 27, Alkaline Phosphatase 53, Total Protein 7.0, Albumin 3.7 Microbiology 03/05/21 Influenza Types A,B Antigen (PATRICIO) - Final, Complete 03/05/21 Blood Culture - Preliminary, Resulted Bacillus species Home Meds Active Prednisone 10 Mg Tab.ds.pk 10 Mg PO DAILY Take 6 tabs(60mg)daily,decrease by 1 tab(10MG)daily. Levofloxacin 750 Mg Tablet 750 Mg PO DAILY@1100 Reported Aspirin EC (Aspirin) 81 Mg Tablet.dr 81 Mg PO DAILY Fish Oil 1,000 mg Softgel ([place]-3/Dha/Epa/Fish Oil) 1 Each Capsule 1 Each PO DAILY Ambien (Zolpidem Tartrate) 10 Mg Tablet 10 Mg PO HS Ventolin Hfa (Albuterol Sulfate) 18 Gm Hfa.aer.ad 2 Puff INH Q6H PRN Trelegy Ellipta 100-62.5-25 (Fluticasone/Umeclidin/Vilanter) 1 Each Blst.w.dev 1 Puff INH DAILY Hydrocodone-Acetamin 10-325 mg (Hydrocodone/Acetaminophen) 1 Each Tablet 1 Ea PO Q6H PRN Assessment/Pt Instructions [facility] 1 week Discharge Planning: <30 minutes discharge planning Discharge Instructions Discharge Diet: No Restrictions Activity as Tolerated: Yes Discharge Physical Examination Vital Signs Vital Signs Date Time Temp Pulse Resp B/P (MAP) Pulse Ox O2 Delivery O2 Flow Rate FiO2 03/07/21 08:00 36.7 93 20 128/60 (82) 93 Room Air 03/06/21 17:10 96.00 03/05/21 12:00 32 General Appearance: No Apparent Distress, WD/WN Respiratory: Lungs Clear Cardiovascular: Regular Rate, Rhythm Allergies: Coded Allergies: ceftriaxone (Verified Allergy, Intermediate, ITCHING, 10/30/18) Discharge Summary Date of Admission Mar 05, 2021 at 10:47 Date of Discharge Discharge Date: Mar 07, 2021 Admission Diagnosis Assessment: Sepsis PNA Fever AECOPD Insomnia Plan: Supportive care IV abx IVF Home meds Steroids ICS Lovenox Discharge Diagnosis DC home tomorrow (1) Community acquired pneumonia PIA WINKLER DO Mar 07, 2021 11:12
[2021-03-07 11:28] VITALS: BP 153/64
--- NOTE | 2021-03-07 13:03 | Progress Note ---
SRINI WATTS, MED STUDENT 03/07/21 1303: Progress Note The following information is only a summary of the PT admission while at [facility] and is not all inclusive. Please Review the entire chart for more information. Mr. Flavio Rodriguez is a 70 y/o M w/ PMH of COPD who presented to the ED on 03/05 for fever and shortness of breath. On admission to the Internal Medicine service, his vitals included fever at 39, tachycardia 144, tachypnea at 28, hypertension at 157/94, and WBCs at 16.6. He was started on IV methylprednisolone, levofloxacin, montelukast, umclidium bromide, and placed on 3L oxygen. CXR done while here demonstrated pulmonary hypertension and emphysema. Mr. Rodriguez reported that he had been out of his inhaler prior to admission and that his symptoms of shortness of breath began after discontinuation of his inhaler. While at [facility], Mr. Rodriguez received 3 days worth of antibiotics, steroids, and inhaler therapy resulting in symptomatic improvement of his breathing, resolution of his fever, tachycardia, and tachypnea. He is being discharged on 03/07 with a steroid taper, levofloxacin, 2L O2 for use with exertion. He is to follow up with his PCP, [facility] for his COPD exacerbation. Mr. Rodriguez is anxious to leave and is unwilling to stay for longer. SANDI WINKLER DO 03/08/21 0556: Supervisory-Addendum Brief Verification & Attestation Participated in pt care: history, MDM, physical Personally performed: exam, history, MDM, supervision of care Care discussed with: Medical Student Procedures: n/a Results interpretation: Verified all documentation Verification and Attestation of Medical Student E/M Service A medical student performed and documented this service in my presence. I reviewed and verified all information documented by the medical student and made modifications to such information, when appropriate. I personally performed the physical exam and medical decision making. Sandi Winkler, Mar 08, 2021,05:56 SRINI WATTS, MED STUDENT Mar 07, 2021 13:03 SANDI WINKLER DO Mar 08, 2021 05:56
== END 2021-03-07 11:52 | disposition home or self-care (01) ==
LOC: EDUNIT# 08:48 → ER 08:52 → 4TH 10:47 → UNDOADMOB 10:47 → 4TH 12:26 → UNDODISOB 03-07 11:52
PROVIDERS: ADMIT Internal Medicine; ATTEND Internal Medicine
DX: J18.9 Pneumonia, unspecified organism (principal); A41.9 Sepsis, unspecified organism; G47.00 Insomnia, unspecified; J44.1 Chronic obstructive pulmonary disease with (acute) exacerbation; R09.02 Hypoxemia; I10 Essential (primary) hypertension; E11.9 Type 2 diabetes mellitus without complications; Z85.828 Personal history of other malignant neoplasm of skin; Z88.1 Allergy status to other antibiotic agents; Z79.84 Long term (current) use of oral hypoglycemic drugs; Z87.891 Personal history of nicotine dependence
CPT/HCPCS: 71045; 80053 ×3; 82550; 82553; 83605; 84145 ×2; 84484; 85007; 85025 ×2; 85027; 85610; 85730; 87040; 87804; 93005; 94640 ×5; 94664; 94760 ×3; 94761; 96361; 96365; 96367; 96368; 99284; G0378; 36415

== ENCOUNTER 2021-04-06 15:55 | Inpatient (IN) | payer MEDICARE ==
[~2021-04-06] VITALS: Ht 172 cm; Wt 117.0 kg
[~2021-04-06 15:55] MED LIST changes: +ALBU18HF2 INH; +ASPI-1238 PO; +FLUT1BLS3 INH; +HYDR-3820 PO; +LEVO750T39 PO; +OMEG-160 PO; +PRED10TA22 PO; +ZOLP10TA PO; +ZOLPIDEM
[2021-04-06] MEDS ORDERED: LACTATED RINGERS 1,000 ML IV STA ×2 (16:11→17:21)
[2021-04-06] MEDS ORDERED: NS IV ONE (16:15)
[2021-04-06] MEDS ORDERED: ACETAMINOPHEN 500 MG TAB (TYLENOL) PO PRN (16:15)
[2021-04-06 16:16] LABS: BASOPHILS # (AUTO) 0.1 10^3/uL (0.0-0.1); BASOPHILS % (AUTO) 1 % (0-10); EOSINOPHILS # (AUTO) 0.1 10^3/uL (0.0-0.3); EOSINOPHILS % (AUTO) 1 % (0-10); HEMATOCRIT 46 % (40-54); HEMOGLOBIN 15.5 g/dL (13.3-17.7); LYMPHOCYTES # (AUTO) 1.7 10^3/uL (1.0-4.0); LYMPHOCYTES % (AUTO) 12 % (12-44); MEAN CORPUSCULAR HEMOGLOBIN 29 pg (25-34); MEAN CORPUSCULAR HGB CONC 33 g/dL (32-36); MEAN CORPUSCULAR VOLUME 88 fL (80-99); MEAN PLATELET VOLUME 9.2 fL (9.0-12.2); MONOCYTES # (AUTO) 1.5 10^3/uL (0.0-1.0); MONOCYTES % (AUTO) 10 % (0-12); NEUTROPHILS # (AUTO) 11.1 10^3/uL (1.8-7.8); NEUTROPHILS % (AUTO) 76 % (42-75); PLATELET COUNT 297 10^3/uL (130-400); WHITE BLOOD COUNT 14.5 10^3/uL (4.3-11.0)
--- NOTE | 2021-04-06 16:18 | ED General ---
General Stated Complaint: CP,SOB, Source of Information: Patient Exam Limitations: No Limitations History of Present Illness Date Seen by Provider: April 06, 2021 Time Seen by Provider: 16:05 Initial Comments Here with fevers, shaking chills, cough, shortness of breath and weakness. Onset at noon today. Also has some central chest discomfort and tightness. Patient states that the chest pain is a pain and he is unable to describe it further. This has been going on and off for about 3 hours and currently is gone. He did drink some milk and that did not change anything although it usually does. Denies nausea, vomiting, diarrhea or dysuria. Was recently admitted for pneumonia. Timing/Duration: 4-6 Hours Severity: Moderate Associated Systoms: Chest Pain, Cough; No Diaphoresis; Fever/Chills; No Loss of Appetite, No Nausea/Vomiting; Shortness of Air, Weakness Allergies and Home Medications Allergies Coded Allergies: ceftriaxone (Verified Allergy, Intermediate, ITCHING, 10/30/18) Home Medications Albuterol Sulfate 18 Gm Hfa.aer.ad, 2 PUFF INH Q6H PRN for SHORTNESS OF BREATH, (Reported) Aspirin 81 Mg Tablet.dr, 81 MG PO DAILY, (Reported) Fluticasone/Umeclidin/Vilanter 1 Each Blst.w.dev, 1 PUFF INH DAILY, (Reported) Hydrocodone/Acetaminophen 1 Each Tablet, 1 EA PO Q6H PRN for PAIN-MODERATE (5- 7), (Reported) Levofloxacin 750 Mg Tablet, 750 MG PO DAILY@1100 Prescribed by: PIA WINKLER on 03/07/21 1111 [place]-3/Dha/Epa/Fish Oil 1 Each Capsule, 1 EACH PO DAILY, (Reported) Prednisone 10 Mg Tab.ds.pk, 10 MG PO DAILY Take 6 tabs(60mg)daily,decrease by 1 tab(10MG)daily. Prescribed by: PIA WINKLER on 03/07/21 1111 Zolpidem Tartrate 10 Mg Tablet, 10 MG PO HS, (Reported) Patient Home Medication List Home Medication List Reviewed: Yes Review of Systems Review of Systems Constitutional: see HPI; No chills, No fever EENTM: No nose congestion, No throat pain Respiratory: see HPI Cardiovascular: see HPI; No edema; palpitations Gastrointestinal: No abdominal pain, No nausea, No vomiting Genitourinary: No dysuria, No pain Musculoskeletal: no symptoms reported Skin: no symptoms reported Psychiatric/Neurological: No Symptoms Reported All Other Systems Reviewed Negative Unless Noted: Yes Past Dexvmjd-Kghdib-Xmvqji Hx Past Med/Social Hx: Reviewed Nursing Past Med/Soc Hx Patient Social History Alcohol Use: Regular Use Alcohol Beverage of Choice: Whiskey, [place] Smoking Status: Former Smoker Former Smoker, Quit: Oct 30, 2014 2nd Hand Smoke Exposure: No Recent Hopitalizations: No Immunizations Up To Date Tetanus Booster (TDap): Unknown PED Vaccines UTD: Yes Date of Pneumonia Vaccine: Aug 30, 2018 Seasonal Allergies Seasonal Allergies: No Past Medical History Surgeries: No (Wound debriedment) Respiratory: Yes COPD Cardiac: No Hypertension Neurological: No Sexually Transmitted Disease: No HIV/AIDS: No Genitourinary: No Gastrointestinal: No Musculoskeletal: No Endocrine: Yes (patient states is border line) Diabetes, Non-Insulin dep HEENT: No Cancer: Yes Skin Did You Recieve Any Treatments: Yes What Type of Treatment Did You: Surgical Intervention Psychosocial: No Integumentary: Yes (HX of Staph) Blood Disorders: No Adverse Reaction/Blood Tranf: No Family Medical History Reviewed Nursing Family Hx No Pertinent Family Hx HTN Physical Exam-Suspected Sepsis Physical Exam Vital Signs Vital Signs - First Documented 04/06/21 15:58 Temp 39.5 Pulse 138 Resp 36 B/P (MAP) 173/93 (119) Pulse Ox 95 O2 Delivery Room Air Capillary Refill : Height, Weight, BMI Height: 5'8.00" Weight: 240lbs. 1.0oz. [id number]; 41.46 BMI Method:Stated General Appearance: WD/WN, Mild Distress, Obese HEENT: PERRL/EOMI, Pharynx Normal Neck: Non Tender, Supple Respiratory: Lungs Clear, Normal Breath Sounds Cardiovascular: No Murmur, Tachycardia Gastrointestinal: Non Tender, Soft, Other (Small umbilical hernia that is red ucible) Back: Normal Inspection, No CVA Tenderness, No Vertebral Tenderness Extremity: Normal Range of Motion, Non Tender Neurologic/Psychiatric: Alert, Oriented x3 Skin: normal color, warm/dry Focused Exam Lactate Level 04/06/21 16:05: Lactic Acid Level 1.87 Lactic Acid Level Laboratory Tests Test 04/06/21 16:05 Lactic Acid Level 1.87 MMOL/L (0.50-2.00) Progress/Results/Core Measures Suspected Sepsis SIRS Temperature: Pulse: Respiratory Rate: Laboratory Tests 04/06/21 16:05: White Blood Count 14.5H Blood Pressure / Mean: 04/06/21 16:05: Lactic Acid Level 1.87 Laboratory Tests 04/06/21 16:05: Creatinine 0.92, INR Comment 1.0, Platelet Count 297, Total Bilirubin 0.9 Results/Orders Lab Results Laboratory Tests Test 04/06/21 16:05 04/06/21 17:15 Range/Units White Blood Count 14.5 H 4.3-11.0 10^3/uL Red Blood Count 5.28 4.30-5.52 10^6/uL Hemoglobin 15.5 13.3-17.7 g/dL Hematocrit 46 40-54 % Mean Corpuscular Volume 88 80-99 fL Mean Corpuscular Hemoglobin 29 25-34 pg Mean Corpuscular Hemoglobin Concent 33 32-36 g/dL Red Cell Distribution Width 13.6 10.0-14.5 % Platelet Count 297 130-400 10^3/uL Mean Platelet Volume 9.2 9.0-12.2 fL Immature Granulocyte % (Auto) 0 % Neutrophils (%) (Auto) 76 H 42-75 % Lymphocytes (%) (Auto) 12 12-44 % Monocytes (%) (Auto) 10 0-12 % Eosinophils (%) (Auto) 1 0-10 % Basophils (%) (Auto) 1 0-10 % Neutrophils # (Auto) 11.1 H 1.8-7.8 10^3/uL Lymphocytes # (Auto) 1.7 1.0-4.0 10^3/uL Monocytes # (Auto) 1.5 H 0.0-1.0 10^3/uL Eosinophils # (Auto) 0.1 0.0-0.3 10^3/uL Basophils # (Auto) 0.1 0.0-0.1 10^3/uL Immature Granulocyte # (Auto) 0.1 0.0-0.1 10^3/uL Neutrophils % (Manual) 74 % Lymphocytes % (Manual) 18 % Monocytes % (Manual) 5 % Eosinophils % (Manual) 2 % Basophils % (Manual) 1 % Blood Morphology Comment NORMAL Prothrombin Time 13.4 12.2-14.7 SEC INR Comment 1.0 0.8-1.4 Activated Partial Thromboplast Time 27 24-35 SEC D-Dimer 0.82 H 0.00-0.49 UG/ML Sodium Level 134 L 135-145 MMOL/L Potassium Level 4.2 3.6-5.0 MMOL/L Chloride Level 100 98-107 MMOL/L Carbon Dioxide Level 21 21-32 MMOL/L Anion Gap 13 5-14 MMOL/L Blood Urea Nitrogen 13 7-18 MG/DL Creatinine 0.92 0.60-1.30 MG/DL Estimat Glomerular Filtration Rate > 60 BUN/Creatinine Ratio 14 Glucose Level 120 H 70-105 MG/DL Lactic Acid Level 1.87 0.50-2.00 MMOL/L Calcium Level 9.1 8.5-10.1 MG/DL Corrected Calcium 9.0 8.5-10.1 MG/DL Magnesium Level 1.4 L 1.6-2.4 MG/DL Total Bilirubin 0.9 0.1-1.0 MG/DL Aspartate Amino Transf (AST/SGOT) 20 5-34 U/L Alanine Aminotransferase (ALT/SGPT) 29 0-55 U/L Alkaline Phosphatase 43 40-136 U/L Total Creatine Kinase 269 H 30-200 U/L Creatine Kinase MB 2.8 <6.6 NG/ML Myoglobin 55.9 10.0-92.0 NG/ML Troponin I < 0.028 <0.028 NG/ML C-Reactive Protein High Sensitivity 1.09 H 0.00-0.50 MG/DL Total Protein 7.6 6.4-8.2 GM/DL Albumin 4.1 3.2-4.5 GM/DL Procalcitonin 0.05 <0.10 NG/ML Urine Color YELLOW Urine Clarity CLEAR Urine pH 7.5 5-9 Urine Specific [place] 1.025 H 1.016-1.022 Urine Protein 2+ H NEGATIVE Urine Glucose (UA) NEGATIVE NEGATIVE Urine Ketones NEGATIVE NEGATIVE Urine Nitrite NEGATIVE NEGATIVE Urine Bilirubin NEGATIVE NEGATIVE Urine Urobilinogen 0.2 < = 1.0 MG/DL Urine Leukocyte Esterase NEGATIVE NEGATIVE Urine RBC (Auto) 1+ H NEGATIVE Urine RBC RARE /HPF Urine WBC 0-2 /HPF Urine Crystals NONE /LPF Urine Bacteria TRACE /HPF Urine Casts NONE /LPF Urine Mucus NEGATIVE /LPF Urine Culture Indicated CULTURE PENDING Micro Results Microbiology 04/06/21 Influenza Types A,B Antigen (PATRICIO) - Final, Complete My Orders Orders - SAVANAH TERRY MD Lactated Ringers (Lr 1000 Ml Iv Solution (04/06/21 16:11) Hs C Reactive Protein (04/06/21 16:42) Procalcitonin (Pct) (04/06/21 16:42) Troponin I (04/06/21 16:44) Lactated Ringers (Lr 1000 Ml Iv Solution (04/06/21 17:21) Lactated Ringers (Lr 1000 Ml Iv Solution (04/06/21 17:30) Ct Chest W (04/06/21 17:24) Piperacillin Sodium/Tazobactam (Zosyn Vi (04/06/21 17:30) Medications Given in ED Current Medications Medications Dose Ordered Sig/Elvira Route Start Time Stop Time Status Last Admin Dose Admin Acetaminophen 1,000 mg ONCE PRN PO 04/06/21 16:15 04/06/21 16:15 DC 04/06/21 16:14 1,000 MG Vital Signs/I&O 04/06/21 15:58 Temp 39.5 Pulse 138 Resp 36 B/P (MAP) 173/93 (119) Pulse Ox 95 O2 Delivery Room Air Capillary Refill : Progress Note : Progress Note Seen and evaluated. IV, labs, blood cultures and lactic acid ordered. Sepsis protocol initiated. We will add chest pain labs as well. EKG ordered. LR 1 L bolus and Tylenol 1 g p.o. for fever of 103. Monitor patient. 1725: I did discuss the case with Dr. Winkler. Patient has bilateral lower lobe pneumonia with right greater than left. Heart rate still remains at 135 and she is asking for consult with cardiology which is reasonable. Patient presented similar last time and heart rate improved with improved status down into the 80s. 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 This was ordered and she will follow results. 1730: I did discuss the case with Dr. Huertas and he accepts patient in consult. Heart rate has declined a little bit to the 120s now on it appears fluids are helping. We did order a second liter of LR and I believe his fever is breaking now. Admit, inpatient status. Patient and family agree with plan. Zosyn 4.5 g ordered IV. Patient has cephalosporin allergy. ECG Initial ECG Impression Date: April 06, 2021 Initial ECG Impression Time: 16:06 Initial ECG Rate: 135 Initial ECG Rhythm: S.Tach Comment Sinus tachycardia with left atrial abnormality and extreme right axis deviation. Left anterior fascicular block. Right ventricular hypertrophy. Similar to previous of 03/05/2021. Interpreted by me. Diagnostic Imaging Diagonstic Imaging: Xray Plain Films/CT/US/NM/MRI: chest Comments [facility]. [place], [place] NAME: ELOISA WILKINSON [facility] REC#: [id number] PT STATUS: REG ER : 1950 PHYSICIAN: KAMRYN TAMEZ APRN ADMIT DATE: 04/06/21/ER Signed Date of Exam:04/06/21 CHEST 1 VIEW, AP/PA ONLY EXAMINATION: Chest 1 view. HISTORY: Sepsis. COMPARISON: 03/05/2021. FINDINGS: Patchy opacities are seen in the bilateral lung bases, right greater than left. No large pleural effusion or pneumothorax. The cardiac silhouette is unremarkable. No acute osseous abnormality. IMPRESSION: Bibasilar patchy opacities, right greater than left. This may represent atelectasis or infection. Dictated by: Dictated on workstation # [id number] Dict: 04/06/21 1621 Trans: 04/06/21 1628 [facility] [id number] Interpreted by: WESLEY LAW DO Electronically signed by: WESLEY LAW DO 04/06/21 1628 Departure Communication (Admissions) Time/Spoke to Admitting Phy: 17:25 Time/Spoke to Consulting Phy: 17:30 Impression Primary Impression: Pneumonia of both lower lobes Qualified Codes: J18.9 - Pneumonia, unspecified organism Additional Impression: Tachycardia Disposition: ADMITTED INPATIENT Condition: Stable Admissions Decision to Admit Reason: Admit from ER (General) Decision to Admit/Date: April 06, 2021 Time/Decision to Admit Time: 17:25 Departure-Patient Inst. Referrals: [facility] [place] (PCP) Primary Care Physician CELESTE VELOZ APRN (Family) Primary Care Physician SAVANAH TERRY MD April 06, 2021 16:18
--- NOTE | 2021-04-06 16:27 | Diagnostic Imaging Report ---
EXAMINATION: Chest 1 view. HISTORY: Sepsis. COMPARISON: 03/05/2021. FINDINGS: Patchy opacities are seen in the bilateral lung bases, right greater than left. No large pleural effusion or pneumothorax. The cardiac silhouette is unremarkable. No acute osseous abnormality. IMPRESSION: Bibasilar patchy opacities, right greater than left. This may represent atelectasis or infection. Dictated by: Dictated on workstation # [id number]
[2021-04-06 16:29] LABS: ALBUMIN 4.1 GM/DL (3.2-4.5); CHLORIDE 100 MMOL/L (98-107); POTASSIUM 4.2 MMOL/L (3.6-5.0); SODIUM 134 MMOL/L (135-145)
[2021-04-06 16:31] LABS: CALCIUM 9.1 MG/DL (8.5-10.1)
[2021-04-06 16:32] LABS: FIBRIN DEGRADATION PRODUCTS 0.82 UG/ML (0.00-0.49); GLUCOSE 120 MG/DL (70-105); PROTHROMBIN TIME PATIENT 13.4 SEC (12.2-14.7); TOTAL PROTEIN 7.6 GM/DL (6.4-8.2)
[2021-04-06 16:33] LABS: CARBON DIOXIDE 21 MMOL/L (21-32)
[2021-04-06 16:34] LABS: BILIRUBIN,TOTAL 0.9 MG/DL (0.1-1.0)
[2021-04-06 16:35] LABS: ALKALINE PHOSPHATASE 43 U/L (40-136); CREATININE SERUM 0.92 MG/DL (0.60-1.30); GFR ESTIMATED > 60; MAGNESIUM 1.4 MG/DL (1.6-2.4)
[2021-04-06 16:36] LABS: BUN/CREATININE RATIO 14
[2021-04-06 16:38] LABS: ALANINE AMINOTRANSFERASE 29 U/L (0-55)
[2021-04-06 16:45] LABS: CREATINE KINASE MB 2.8 NG/ML (<6.6)
[2021-04-06 17:04] LABS: BASOPHILS % (MANUAL) 1 %; EOSINOPHILS % (MANUAL) 2 %; LYMPHOCYTES % (MANUAL) 18 %; MONOCYTES % (MANUAL) 5 %; NEUTROPHILS % (MANUAL) 74 %; RBC MORPH NORMAL
[2021-04-06 17:24] LABS: BILIRUBIN,URINE NEGATIVE (NEGATIVE); CLARITY,URINE CLEAR; COLOR,URINE YELLOW; GLUCOSE, URINE (UA) NEGATIVE (NEGATIVE); KETONES,URINE NEGATIVE (NEGATIVE); LEUKOCYTE ESTERASE ,URINE NEGATIVE (NEGATIVE); NITRITE,URINE NEGATIVE (NEGATIVE); PH,URINE 7.5 (5-9); PROTEIN,URINE 2+ (NEGATIVE)
[2021-04-06] MEDS ORDERED: LACTATED RINGERS 1,000 ML IV SCH (17:30)
[2021-04-06] MEDS ORDERED: PIPERACILLIN SODIUM/TAZOBACTAM 4.5 GM in NS (IVPB) 100 ML IV ONE (17:30)
[2021-04-06 17:34] LABS: BACTERIA,URINE TRACE /HPF; RBC,URINE RARE /HPF; WBC,URINE 0-2 /HPF
[2021-04-06] MEDS ORDERED: IOHEXOL 350 MG/ML 100 ML (OMNIPAQUE 350) VIAL IV ONE (17:45)
--- NOTE | 2021-04-06 18:02 | Diagnostic Imaging Report ---
PROCEDURE: CT chest with contrast only. TECHNIQUE: Multiple contiguous axial images were obtained through the chest after administration of intravenous contrast. Auto Exposure Controls were utilized during the CT exam to meet ALARA standards for radiation dose reduction. INDICATION: Fever and chills. History of pneumonia. Shortness of air. COMPARISON: 05/01/2020. FINDINGS: Evaluation of the lung sheth demonstrates background moderate emphysematous disease. Additionally, there are scattered ill-defined areas of increased parenchymal opacity within the left upper lobe. These are new when compared to 05/01/2020. There is also subpleural 5 mm micronodule within the anterior margins of the left upper lobe (image 53, series 3). This is stable compared to prior study. Small subpleural micronodules are also seen within the posterior margins of the right lower lobe and measures 5 mm (image 95, series 3). This is stable compared to prior exam as well. No new suspicious pulmonary nodule or mass is seen. There is no large effusion or pneumothorax. Cardiomediastinal structures show normal heart size. There is advanced calcified coronary and aortic atherosclerosis. No pathologically enlarged or morphologically abnormal adenopathy is seen within the mediastinum, lee or axilla. Osseous structures show age-related degenerative changes. No lytic or blastic bony lesions are seen. Included portions of the upper abdomen show hypodense appearance of the liver consistent with hepatic steatosis. Gallstone is also noted within the included portions of the gallbladder. IMPRESSION: 1. Minimal patchy airspace opacities of the left upper lobe concerning for pneumonia. Follow-up to resolution is recommended. 2. Small bilateral left upper and right lower lobe pulmonary micronodules. Repeat CT chest in 12 months is recommended to ensure stability. 3. Advanced calcified aortic and coronary atherosclerosis. 4. Hepatic steatosis. 5. Cholelithiasis. Dictated by: Dictated on workstation # [id number]
[2021-04-06] MEDS ORDERED: NS IV 1000 ML 1,000 ML ONE (18:19)
[2021-04-06] MEDS: NS IV 1000 ML 1,000 ML IV SCH (18:27)
[2021-04-06] MEDS ORDERED: ONDANSETRON 4 MG/2 ML (SDV) Z0FRAN IVP PRN (18:30)
[2021-04-06 18:33] VITALS: BP 128/83
[2021-04-06 19:56] VITALS: BP 113/65
[2021-04-06] MEDS: ZOLPIDEM 5 MG (AMBIEN) TAB PO SCH (21:24)
[2021-04-06] MEDS ORDERED: PIPERACILLIN/TAZO 4.5 GM VIAL (ZOSYN) IV ONE ×2 (22:17→22:18)
[2021-04-06] MEDS ORDERED: NS (IVPB) 100 ML ONE ×2 (22:17→22:18)
[2021-04-06] MEDS: PIPERACILLIN/TAZOBACTAM (BULK) 4.5 GM in NS (IVPB) 100 ML IV SCH (23:01)
[2021-04-07] VITALS (7 sets, daily range): BP systolic 96–140; BP diastolic 47–77
[2021-04-07] MEDS: NS IV 1000 ML 1,000 ML IV SCH (04:06)
[2021-04-07 05:57] LABS: BASOPHILS # (AUTO) 0.1 10^3/uL (0.0-0.1); BASOPHILS % (AUTO) 0 % (0-10); EOSINOPHILS # (AUTO) 0.2 10^3/uL (0.0-0.3); EOSINOPHILS % (AUTO) 1 % (0-10); HEMATOCRIT 43 % (40-54); HEMOGLOBIN 13.9 g/dL (13.3-17.7); LYMPHOCYTES # (AUTO) 2.5 10^3/uL (1.0-4.0); LYMPHOCYTES % (AUTO) 16 % (12-44); MEAN CORPUSCULAR HEMOGLOBIN 29 pg (25-34); MEAN CORPUSCULAR HGB CONC 32 g/dL (32-36); MEAN CORPUSCULAR VOLUME 90 fL (80-99); MEAN PLATELET VOLUME 9.4 fL (9.0-12.2); MONOCYTES # (AUTO) 1.8 10^3/uL (0.0-1.0); MONOCYTES % (AUTO) 12 % (0-12); NEUTROPHILS # (AUTO) 10.4 10^3/uL (1.8-7.8); NEUTROPHILS % (AUTO) 70 % (42-75); PLATELET COUNT 234 10^3/uL (130-400)
[2021-04-07 06:08] LABS: ALBUMIN 3.5 GM/DL (3.2-4.5); CHLORIDE 104 MMOL/L (98-107); POTASSIUM 4.2 MMOL/L (3.6-5.0); SODIUM 139 MMOL/L (135-145)
[2021-04-07 06:09] LABS: CALCIUM 8.3 MG/DL (8.5-10.1)
[2021-04-07 06:10] LABS: GLUCOSE 138 MG/DL (70-105); TOTAL PROTEIN 6.5 GM/DL (6.4-8.2)
[2021-04-07 06:12] LABS: BILIRUBIN,TOTAL 1.5 MG/DL (0.1-1.0); CARBON DIOXIDE 22 MMOL/L (21-32)
[2021-04-07 06:14] LABS: ALKALINE PHOSPHATASE 36 U/L (40-136); GFR ESTIMATED > 60
[2021-04-07 06:15] LABS: BUN/CREATININE RATIO 12
[2021-04-07 06:16] LABS: BILIRUBIN,DIRECT 0.4 MG/DL (0.0-0.3); BILIRUBIN,INDIRECT 1.1 MG/DL
[2021-04-07 06:17] LABS: ALANINE AMINOTRANSFERASE 23 U/L (0-55)
[2021-04-07] MEDS: PIPERACILLIN/TAZOBACTAM (BULK) 4.5 GM in NS (IVPB) 100 ML IV SCH ×3 (06:31→23:16)
--- NOTE | 2021-04-07 07:04 | History & Physical-Hospitalist ---
History of Present Illness HPI/Chief Complaint CC: Fever with PNA HPI: This is a 70yoWM clinic patient of [facility] who is known to me from 5 weeks ago admit for PNA who presented to the ER with fever and cough and was found to have another PNA. He reports that he never felt like the other PNA resolved. Tachycardia noted so consulted Dr Wayne. CT chest was reviewed and revealed no evidence of tumor. IV abx maintained and IVF for dehydration from fever. Source: patient Exam Limitations: no limitations Date Seen 04/07/21 Time Seen by a Provider: 11:00 Attending Physician Sandi Luz DO [facility] [place] Referring Physician Date of Admission April 06, 2021 at 17:32 Home Medications & Allergies Home Medications Reviewed patient Home Medication Reconciliation performed by pharmacy medication reconciliations sanitation technician and/or nursing. Patients Allergies have been reviewed. Allergies Allergies Coded Allergies ceftriaxone (Verified Allergy, Intermediate, ITCHING, 10/30/18) Patient Social History Marrital Status: single Employed/Student: retired Tobacco Use?: No Smoking Status: Former Smoker Substance use?: No Alcohol Use?: No Pt stated abuse/neglect: No Immunizations Up To Date Influenza Vaccine Up-to-Date: No; Not Current First/Initial COVID19 Vaccinat: SECOND DOSE COUPLE MONTHS AGO STATES DAUGHTER Second COVID19 Vaccination Romero: SECOND DOSE COUPLE MONTHS AGO STATES DAUGHTER Tetanus Booster (TDap): Unknown Hepatitis A: No Hepatitis B: No TB Skin Test: None Date of Pneumonia Vaccine: Aug 30, 2018 Current Status Do you have an Advance Directi: No Communicates: Verbally Primary Language: Salvadorean Preferred Spoken Language: Salvadorean Is interpretation needed?: No Implanted or Applied Medical D: None Past Medical History COPD Insomnia Family Medical History Family Hx: HTN Review of Systems Constitutional: see HPI, fever, malaise, weakness Respiratory: cough, dyspnea on exertion, short of breath Physical Exam Physical Exam Vital Signs Vital Signs - First Documented 04/06/21 04/06/21 15:58 17:00 Temp 39.5 Pulse 138 Resp 36 B/P (MAP) 173/93 (119) Pulse Ox 95 O2 Delivery Room Air O2 Flow Rate 2.00 Capillary Refill : Less Than 3 Seconds Height, Weight, BMI Height: 5'8.00" Weight: 240lbs. 1.0oz. 108.959797xk; 39.54 BMI Method:Stated General Appearance: No Apparent Distress, Chronically ill, Obese Eyes: Right Eye Normal Inspection, Right Eye PERRL HEENT: PERRL/EOMI, Normal ENT Inspection, Pharynx Normal, Moist Mucous Membranes Neck: Full Range of Motion, Normal Inspection, Non Tender Respiratory: Chest Non Tender, No Accessory Muscle Use, No Respiratory Distress, Crackles, Decreased Breath Sounds, Wheezing Cardiovascular: Regular Rate, Rhythm, No Edema, No Gallop, No JVD, No Murmur, Normal Peripheral Pulses Gastrointestinal: Normal Bowel Sounds, No Organomegaly, No Pulsatile Mass, Non Tender, Soft Back: Normal Inspection, No CVA Tenderness, No Vertebral Tenderness Extremity: Normal Capillary Refill, Normal Inspection, Normal Range of Motion, Non Tender, No Calf Tenderness, No Pedal Edema Neurologic/Psychiatric: Alert, Oriented x3, No Motor/Sensory Deficits, Normal Mood/Affect Skin: Normal Color, Warm/Dry Lymphatic: No Adenopathy Results Results/Procedures Labs Laboratory Tests 04/06/21 16:05 04/07/21 05:15 Patient resulted labs reviewed. Assessment/Plan Admission Diagnosis Assessment: PNA Fever Tachycardia COPD Former smoker Plan: IV abx IVF Cardiology consultation ECHO Lovenox Admission Status: Inpatient Order (span 2 midnights) Reason for Inpatient Admission: recurrent PNA Diagnosis/Problems Diagnosis/Problems (1) Bilateral pneumonia (2) Tachycardia Status: Acute SANDI LUZ DO April 07, 2021 07:04
--- NOTE | 2021-04-07 08:32 | Diagnostic Imaging Report ---
Indication: Pneumonia. Compared with study one day prior. Findings: There has been clearance of the right mid to lower lung. There is some patchy left-sided infiltrate unchanged. Upper lobes clear. Background COPD chronic. Impression: Clearing of the right lung, some mild residual patchy infiltrate on the left unchanged with some chronic features of likely COPD superimposed stable. Dictated by: Dictated on workstation # [id number]
[2021-04-07] MEDS: ASPIRIN 81 MG CHEW (CHILDREN'S ASA) PO SCH (10:06)
--- NOTE | 2021-04-07 10:50 | Consultation-Cardiology ---
HPI-Cardiology Cardiology Consultation Date of Consultation 04/07/21 Date of Admission Time Seen by Provider: 10:45 Indication: Shortness of breath HPI 70 years old gentleman with history of hypertension, patient reported episode of chest pressure in the retrosternal area lasted for about 3 hours, admitted with fever chills cough, diagnosed with pneumonia. On my evaluation he was feeling better. Denied any active chest pain, no shortness of breath. No palpitation Home Medications & Allergies Allergies: Coded Allergies: ceftriaxone (Verified Allergy, Intermediate, ITCHING, 10/30/18) Home Medication List Reviewed: Yes [id number]-Ilfjqr Hx Patient Social History Marital Status: Recreational Drug Use: No Smoking Status: Former Smoker 2nd Hand Smoke Exposure: No Recent Hopitalizations: No Have you traveled recently?: No Alcohol Use?: No Immunizations Up To Date Tetanus Booster (TDap): Unknown Date of Pneumonia Vaccine: Aug 30, 2018 Past Medical History Discussed below Family Medical History Significant Family History: No Pertinent Family Hx Family Medical Hx Father of myocardial infarction Review of Systems-General Review of Systems Constitutional: see HPI; No chills, No fever EENTM: see HPI, no symptoms reported; No nose congestion, No throat pain Respiratory: see HPI, cough, dyspnea on exertion; No hemoptysis, No orthopnea, No phlegm, No short of breath, No stridor, No wheezing, No other Cardiovascular: see HPI, chest pain; No edema, No Hx of Intervention; palpitations; No syncope, No vascular heart diseas, No other Gastrointestinal: no symptoms reported, see HPI; No abdominal pain, No nausea, No vomiting Genitourinary: no symptoms reported, see HPI; No dysuria, No pain Musculoskeletal: no symptoms reported, see HPI Skin: no symptoms reported, see HPI Psychiatric/Neurological: No Symptoms Reported, See HPI All Other Systems Reviewed Negative Unless Noted: Yes Reviewed Test Results Reviewed Test Results Lab Laboratory Tests Test 04/06/21 16:05 04/06/21 17:15 04/07/21 05:15 Range/Units White Blood Count 14.5 H 15.0 H 4.3-11.0 10^3/uL Red Blood Count 5.28 4.80 4.30-5.52 10^6/uL Hemoglobin 15.5 13.9 13.3-17.7 g/dL Hematocrit 46 43 40-54 % Mean Corpuscular Volume 88 90 80-99 fL Mean Corpuscular Hemoglobin 29 29 25-34 pg Mean Corpuscular Hemoglobin Concent 33 32 32-36 g/dL Red Cell Distribution Width 13.6 14.0 10.0-14.5 % Platelet Count 297 234 130-400 10^3/uL Mean Platelet Volume 9.2 9.4 9.0-12.2 fL Immature Granulocyte % (Auto) 0 1 % Neutrophils (%) (Auto) 76 H 70 42-75 % Lymphocytes (%) (Auto) 12 16 12-44 % Monocytes (%) (Auto) 10 12 0-12 % Eosinophils (%) (Auto) 1 1 0-10 % Basophils (%) (Auto) 1 0 0-10 % Neutrophils # (Auto) 11.1 H 10.4 H 1.8-7.8 10^3/uL Lymphocytes # (Auto) 1.7 2.5 1.0-4.0 10^3/uL Monocytes # (Auto) 1.5 H 1.8 H 0.0-1.0 10^3/uL Eosinophils # (Auto) 0.1 0.2 0.0-0.3 10^3/uL Basophils # (Auto) 0.1 0.1 0.0-0.1 10^3/uL Immature Granulocyte # (Auto) 0.1 0.1 0.0-0.1 10^3/uL Neutrophils % (Manual) 74 % Lymphocytes % (Manual) 18 % Monocytes % (Manual) 5 % Eosinophils % (Manual) 2 % Basophils % (Manual) 1 % Blood Morphology Comment NORMAL Prothrombin Time 13.4 12.2-14.7 SEC INR Comment 1.0 0.8-1.4 Activated Partial Thromboplast Time 27 24-35 SEC D-Dimer 0.82 H 0.00-0.49 UG/ML Sodium Level 134 L 139 135-145 MMOL/L Potassium Level 4.2 4.2 3.6-5.0 MMOL/L Chloride Level 100 104 98-107 MMOL/L Carbon Dioxide Level 21 22 21-32 MMOL/L Anion Gap 13 13 5-14 MMOL/L Blood Urea Nitrogen 13 11 7-18 MG/DL Creatinine 0.92 0.90 0.60-1.30 MG/DL Estimat Glomerular Filtration Rate > 60 > 60 BUN/Creatinine Ratio 14 12 Glucose Level 120 H 138 H 70-105 MG/DL Lactic Acid Level 1.87 0.50-2.00 MMOL/L Calcium Level 9.1 8.3 L 8.5-10.1 MG/DL Corrected Calcium 9.0 8.5-10.1 MG/DL Magnesium Level 1.4 L 1.6-2.4 MG/DL Total Bilirubin 0.9 1.5 H 0.1-1.0 MG/DL Aspartate Amino Transf (AST/SGOT) 20 17 5-34 U/L Alanine Aminotransferase (ALT/SGPT) 29 23 0-55 U/L Alkaline Phosphatase 43 36 L 40-136 U/L Total Creatine Kinase 269 H 30-200 U/L Creatine Kinase MB 2.8 <6.6 NG/ML Myoglobin 55.9 10.0-92.0 NG/ML Troponin I < 0.028 <0.028 NG/ML C-Reactive Protein High Sensitivity 1.09 H 0.00-0.50 MG/DL Total Protein 7.6 6.5 6.4-8.2 GM/DL Albumin 4.1 3.5 3.2-4.5 GM/DL Procalcitonin 0.05 <0.10 NG/ML Urine Color YELLOW Urine Clarity CLEAR Urine pH 7.5 5-9 Urine Specific [place] 1.025 H 1.016-1.022 Urine Protein 2+ H NEGATIVE Urine Glucose (UA) NEGATIVE NEGATIVE Urine Ketones NEGATIVE NEGATIVE Urine Nitrite NEGATIVE NEGATIVE Urine Bilirubin NEGATIVE NEGATIVE Urine Urobilinogen 0.2 < = 1.0 MG/DL Urine Leukocyte Esterase NEGATIVE NEGATIVE Urine RBC (Auto) 1+ H NEGATIVE Urine RBC RARE /HPF Urine WBC 0-2 /HPF Urine Crystals NONE /LPF Urine Bacteria TRACE /HPF Urine Casts NONE /LPF Urine Mucus NEGATIVE /LPF Urine Culture Indicated CULTURE PENDING Direct Bilirubin 0.4 H 0.0-0.3 MG/DL Indirect Bilirubin 1.1 MG/DL Physical Exam Physical Exam Vital Signs Vital Signs - First Documented 04/06/21 04/06/21 15:58 17:00 Temp 39.5 Pulse 138 Resp 36 B/P (MAP) 173/93 (119) Pulse Ox 95 O2 Delivery Room Air O2 Flow Rate 2.00 Capillary Refill : Less Than 3 Seconds Height, Weight, BMI Height: 5'8.00" Weight: 240lbs. 1.0oz. [id number]; 39.54 BMI Method:Stated General Appearance: WD/WN, Mild Distress, Obese HEENT: PERRL/EOMI, Pharynx Normal Neck: Non Tender, Supple Respiratory: Lungs Clear, Normal Breath Sounds Cardiovascular: No Murmur, Tachycardia Gastrointestinal: Non Tender, Soft, Other (Small umbilical hernia that is reducible) Back: Normal Inspection, No CVA Tenderness, No Vertebral Tenderness Extremity: Normal Range of Motion, Non Tender Neurologic/Psychiatric: Alert, Oriented x3 A/P-Cardiology Admission Diagnosis Chest pain Pneumonia Hypertension COPD Assessment/Plan Chest pain nonspecific etiology, atypical in presentation probably secondary to pneumonia, patient has multiple risk factors for coronary artery disease, will consider stress test once clinically more stable as an outpatient. Pneumonia, started on antibiotics, managed by primary care team Sinus tachycardia, probably secondary to pneumonia and hypoxemia, feeling better now, heart rate is better. Continue to monitor COPD, acute exacerbation, managed by primary care physician Hypothyroidism, followed and managed by primary care physician Abnormal EKG, left anterior fascicular block, poor R wave progression, I will evaluate 2D echo Obesity, BMI 39, we discussed weight loss KALE MCMILLNA MD April 07, 2021 10:50
[2021-04-07] MEDS ORDERED: RT-ALBUTEROL/IPRATROPIUM 3 ML (DUONEB) VIAL INH ONE (11:30)
[2021-04-07] MEDS: methylPREDNISolone 40 MG/ML (Solu-MEDROL) VIAL IV SCH ×4 (11:59→23:16)
[2021-04-07] MEDS: RT-ALBUTEROL/IPRATROPIUM 3 ML (DUONEB) VIAL INH SCH ×3 (14:32→22:37)
[2021-04-07] MEDS ORDERED: ENOXAPARIN 40 MG/0.4 ML (LOVENOX) SYR SC SCH (17:00)
[2021-04-07] MEDS: RT--FLUTICASONE/SALMETEROL 113-14 (AIRDUO RespiCLICK) IH SCH (19:18)
[2021-04-07] MEDS: MONTELUKAST 10 MG (SINGULAIR) TAB PO SCH (19:58)
[2021-04-07] MEDS: ZOLPIDEM 5 MG (AMBIEN) TAB PO SCH (20:03)
[2021-04-08] MEDS: RT-ALBUTEROL/IPRATROPIUM 3 ML (DUONEB) VIAL INH SCH ×5 (02:38→22:35)
[2021-04-08 03:13] VITALS: BP 122/60
[2021-04-08 04:13] LABS: BASOPHILS % (AUTO) 0 % (0-10); EOSINOPHILS % (AUTO) 0 % (0-10); HEMATOCRIT 46 % (40-54); HEMOGLOBIN 14.7 g/dL (13.3-17.7); LYMPHOCYTES % (AUTO) 7 % (12-44); MEAN CORPUSCULAR HEMOGLOBIN 29 pg (25-34); MEAN CORPUSCULAR HGB CONC 32 g/dL (32-36); MEAN CORPUSCULAR VOLUME 90 fL (80-99); MEAN PLATELET VOLUME 9.4 fL (9.0-12.2); MONOCYTES # (AUTO) 0.4 10^3/uL (0.0-1.0); MONOCYTES % (AUTO) 3 % (0-12); NEUTROPHILS # (AUTO) 12.5 10^3/uL (1.8-7.8); NEUTROPHILS % (AUTO) 89 % (42-75); PLATELET COUNT 273 10^3/uL (130-400)
[2021-04-08 04:31] LABS: ALBUMIN 3.8 GM/DL (3.2-4.5); CHLORIDE 104 MMOL/L (98-107); POTASSIUM 4.3 MMOL/L (3.6-5.0); SODIUM 137 MMOL/L (135-145)
[2021-04-08 04:32] LABS: CALCIUM 8.9 MG/DL (8.5-10.1)
[2021-04-08 04:33] LABS: GLUCOSE 324 MG/DL (70-105); TOTAL PROTEIN 7.3 GM/DL (6.4-8.2)
[2021-04-08 04:34] LABS: CARBON DIOXIDE 17 MMOL/L (21-32)
[2021-04-08 04:35] LABS: BILIRUBIN,TOTAL 0.7 MG/DL (0.1-1.0)
[2021-04-08 04:37] LABS: ALKALINE PHOSPHATASE 45 U/L (40-136); GFR ESTIMATED > 60
[2021-04-08 04:38] LABS: BUN/CREATININE RATIO 14
[2021-04-08 04:40] LABS: ALANINE AMINOTRANSFERASE 23 U/L (0-55)
[2021-04-08] MEDS: PIPERACILLIN/TAZOBACTAM (BULK) 4.5 GM in NS (IVPB) 100 ML IV SCH ×3 (06:05→23:08)
[2021-04-08] MEDS: methylPREDNISolone 40 MG/ML (Solu-MEDROL) VIAL IV SCH ×3 (06:05→18:09)
[2021-04-08] MEDS: ENOXAPARIN 40 MG/0.4 ML (LOVENOX) SYR SC SCH ×2 (06:06→18:06)
[2021-04-08] MEDS: RT--FLUTICASONE/SALMETEROL 113-14 (AIRDUO RespiCLICK) IH SCH ×2 (07:06→22:35)
[2021-04-08 07:52] VITALS: BP 142/60
--- NOTE | 2021-04-08 09:04 | Cardiology Progress Note ---
Subjective Date Seen by Provider: April 08, 2021 Time Seen by Provider: 08:45 Subjective/Events-last exam Pt sitting up in chair and says he is feeling great. States his sob and cp are improving and he is comfortable going home today. Also notes his chest pain often resolves with a glass of milk. Denies any palpitations/dizziness/worsening chest pressure. Review of Systems General: No Chills, No Night Sweats HEENT: No Head Aches, No Visual Changes Pulmonary: Dyspnea, Cough Cardiovascular: Chest Pain; No: Palpitations Gastrointestinal: No: Nausea, Vomiting Genitourinary: No Dysuria, No Frequency Musculoskeletal: No: neck pain, shoulder pain Neurological: No: Weakness, Numbness Focused Exam Lactate Level 04/06/21 16:05: Lactic Acid Level 1.87 Objective-Cardiology Exam Last Set of Vital Signs Vital Signs 04/08/21 04/08/21 07:52 09:58 Temp 36.7 Pulse 114 Resp 22 B/P (MAP) 142/60 (87) Pulse Ox 94 O2 Delivery Nasal Cannula O2 Flow Rate 4.00 Capillary Refill : Less Than 3 Seconds I&O Intake and Output 04/08/21 00:00 Intake Total 2020 ml Balance 2020 ml Intake Oral 1900 ml IV Total 120 ml # Voids 14 # Bowel Movements 1 General: Alert, Oriented X3, Cooperative HEENT: Atraumatic, PERRLA Neck: Supple, No JVD, No Thyromegaly Lungs: Other (mild crackles ) Heart: Normal S1, Normal S2, No Murmurs, Other (tachycardia ) Abdomen: Normal Bowel Sounds, Soft, No Tenderness, No Hepatosplenomegaly, No Masses Extremities: No Clubbing, No Cyanosis, No Edema, Normal Pulses, No Tenderness/Swelling Skin: No Rashes, No Breakdown, No Significant Lesion Neuro: Normal Gait, Normal Speech, Strength at 5/5 X4 Ext, Normal Tone, Sensation Intact Psych/Mental Status: Mental Status NL, Mood NL Results Lab Laboratory Tests 04/08/21 03:40 04/08/21 04:00 A/P-Cardiology Admission Diagnosis Chest pain Pneumonia Hypertension COPD Assessment/Plan Chest pain nonspecific etiology, atypical in presentation probably secondary to pneumonia, patient has multiple risk factors for coronary artery disease, will consider stress test once clinically more stable as an outpatient. Pneumonia, started on antibiotics, managed by primary care team Sinus tachycardia, probably secondary to pneumonia and hypoxemia, feeling better now, heart rate is better. Continue to monitor COPD, acute exacerbation, managed by primary care physician Hypothyroidism, followed and managed by primary care physician Abnormal EKG, left anterior fascicular block, poor R wave progression, will evaluate 2D echo Obesity, BMI 39, we discussed weight loss Supervisory-Addendum Brief Verification & Attestation Participated in pt care: history, MDM, physical Personally performed: exam, history, MDM, supervision of care Care discussed with: Medical Student Procedures: n/a Results interpretation: Verified all documentation Patient was seen and evaluated, sitting in a chair Slightly tachycardic, able to exercise better Reporting improvement in breathing and asking to go home Cardiac status at this time is stable, okay for discharge from cardiology standpoint SHAUNA GARRETT MED STUDENT April 08, 2021 9:03 am KALE MCMILLAN MD April 08, 2021 11:50 am
[2021-04-08] MEDS ORDERED: LISI20TA26 PO (09:45)
[2021-04-08] MEDS: ASPIRIN 81 MG CHEW (CHILDREN'S ASA) PO SCH (10:20)
[2021-04-08 12:08] VITALS: BP 124/67
--- NOTE | 2021-04-08 12:18 | Progress Note ---
Subjective Subjective/Events-last exam Patient states that he is feeling better. Up walking around on the unit. No previous baseline oxygen requirement. Tolerating PO diet and ambulation Review of Systems General: No Chills, No Fatigue Pulmonary: Dyspnea, Cough Cardiovascular: No: Chest Pain, Palpitations, Edema Gastrointestinal: No: Nausea, Vomiting, Abdominal Pain, Diarrhea, Constipation Neurological: Weakness; No: Incoordination, Confusion Focused Exam Lactate Level 04/06/21 16:05: Lactic Acid Level 1.87 Objective Exam Last Set of Vital Signs Vital Signs Date Time Temp Pulse Resp B/P (MAP) Pulse Ox O2 Delivery O2 Flow Rate FiO2 04/08/21 12:08 37.1 99 22 124/67 (86) 95 Nasal Cannula 4.00 Capillary Refill : Less Than 3 Seconds I&O Intake and Output 04/08/21 00:00 Intake Total 2020 ml Balance 2020 ml Intake Oral 1900 ml IV Total 120 ml # Voids 14 # Bowel Movements 1 General: Alert, Oriented X3, Cooperative, No Acute Distress Lungs: Other (Bibasilar wheezing, no crackles, normal work of breathing) Heart: Regular Rate, No Murmurs Abdomen: Normal Bowel Sounds, Soft, No Tenderness, No Masses Extremities: No Edema, No Tenderness/Swelling Neuro: Normal Speech, Strength at 5/5 X4 Ext, Sensation Intact, Cranial Nerves 3-12 NL Psych/Mental Status: Mental Status NL, Mood NL Results/Procedures Lab Laboratory Tests 04/08/21 03:40: White Blood Count 14.0H, Red Blood Count 5.05, Hemoglobin 14.7, Hematocrit 46, Mean Corpuscular Volume 90, Mean Corpuscular Hemoglobin 29, Mean Corpuscular Hemoglobin Concent 32, Red Cell Distribution Width 13.7, Platelet Count 273, Mean Platelet Volume 9.4, Immature Granulocyte % (Auto) 1, Neutrophils (%) (Auto ) 89H, Lymphocytes (%) (Auto) 7L, Monocytes (%) (Auto) 3, Eosinophils (%) (Auto) 0, Basophils (%) (Auto) 0, Neutrophils # (Auto) 12.5H, Lymphocytes # (Auto) 1.0, Monocytes # (Auto) 0.4, Eosinophils # (Auto) 0.0, Basophils # (Auto) 0.0, Immature Granulocyte # (Auto) 0.1 04/08/21 04:00: Sodium Level 137, Potassium Level 4.3, Chloride Level 104, Carbon Dioxide Level 17L, Anion Gap 16H, Blood Urea Nitrogen 15, Creatinine 1.10, Estimat Glomerular Filtration Rate > 60, BUN/Creatinine Ratio 14, Glucose Level 324H, Calcium Level 8.9, Corrected Calcium 9.1, Total Bilirubin 0.7, Aspartate Amino Transf (AST/SGOT) 13, Alanine Aminotransferase (ALT/SGPT) 23, Alkaline Phosphatase 45, Total Protein 7.3, Albumin 3.8 Microbiology 04/06/21 Urine Culture - Final, Complete NO GROWTH 04/06/21 Influenza Types A,B Antigen (PATRICIO) - Final, Complete 04/06/21 Blood Culture - Preliminary, Resulted No growth Assessment/Plan Assessment/Plan (1) Bilateral pneumonia Status: Acute Assessment & Plan: 04/08: Continue IV antibiotics and will transition to PO tomorrow, needing continuous oxygen at this time, will titrate as tolerated, home oxygen study ordered today Qualifiers: Qualified Codes: J18.9 - Pneumonia, unspecified organism (2) COPD exacerbation Status: Acute (3) Tachycardia Status: Acute Assessment & Plan: 04/08: Cardiology consulted, appreciate recommendations (4) HTN (hypertension) Status: Acute Assessment & Plan: 04/08: Continue home meds Qualifiers: Qualified Codes: I10 - Essential (primary) hypertension (5) Hypothyroidism Status: Chronic Assessment & Plan: 04/08: Continue home meds Qualifiers: Qualified Codes: E03.9 - Hypothyroidism, unspecified (6) Pulmonary nodule Status: Acute Assessment & Plan: 04/08: Multiple micro nodules present on CT, needs [address] scan to monitor for stablilty (7) Body mass index (BMI) of 30 to 39 in adult (8) DVT prophylaxis Status: Acute Assessment & Plan: - NELLI Steele MD April 08, 2021 12:18
[2021-04-08 15:18] VITALS: BP 118/57
[2021-04-08 19:11] VITALS: BP 131/57
[2021-04-08] MEDS: ZOLPIDEM 5 MG (AMBIEN) TAB PO SCH (20:19)
[2021-04-08] MEDS: MONTELUKAST 10 MG (SINGULAIR) TAB PO SCH (20:19)
[2021-04-08 23:54] VITALS: BP 105/54
[2021-04-09] MEDS: methylPREDNISolone 40 MG/ML (Solu-MEDROL) VIAL IV SCH ×3 (00:17→14:08)
[2021-04-09] MEDS: RT-ALBUTEROL/IPRATROPIUM 3 ML (DUONEB) VIAL INH SCH ×4 (02:56→14:09)
[2021-04-09 04:00] VITALS: BP 137/65
[2021-04-09] MEDS: ENOXAPARIN 40 MG/0.4 ML (LOVENOX) SYR SC SCH (05:43)
[2021-04-09 05:55] LABS: BASOPHILS % (AUTO) 0 % (0-10); EOSINOPHILS % (AUTO) 0 % (0-10); HEMATOCRIT 44 % (40-54); HEMOGLOBIN 14.2 g/dL (13.3-17.7); LYMPHOCYTES % (AUTO) 6 % (12-44); MEAN CORPUSCULAR HEMOGLOBIN 30 pg (25-34); MEAN CORPUSCULAR HGB CONC 32 g/dL (32-36); MEAN CORPUSCULAR VOLUME 92 fL (80-99); MEAN PLATELET VOLUME 9.7 fL (9.0-12.2); MONOCYTES % (AUTO) 6 % (0-12); NEUTROPHILS # (AUTO) 16.1 10^3/uL (1.8-7.8); NEUTROPHILS % (AUTO) 87 % (42-75); PLATELET COUNT 297 10^3/uL (130-400); WHITE BLOOD COUNT 18.4 10^3/uL (4.3-11.0)
[2021-04-09 06:18] LABS: CHLORIDE 104 MMOL/L (98-107); POTASSIUM 4.5 MMOL/L (3.6-5.0); SODIUM 139 MMOL/L (135-145)
[2021-04-09 06:19] LABS: CALCIUM 9.1 MG/DL (8.5-10.1)
[2021-04-09 06:20] LABS: GLUCOSE 325 MG/DL (70-105); TOTAL PROTEIN 6.9 GM/DL (6.4-8.2)
[2021-04-09 06:21] LABS: CARBON DIOXIDE 20 MMOL/L (21-32)
[2021-04-09 06:22] LABS: BILIRUBIN,TOTAL 0.4 MG/DL (0.1-1.0)
[2021-04-09 06:23] LABS: ALKALINE PHOSPHATASE 53 U/L (40-136); CREATININE SERUM 1.05 MG/DL (0.60-1.30); GFR ESTIMATED > 60
[2021-04-09 06:25] LABS: BUN/CREATININE RATIO 19
[2021-04-09 06:26] LABS: ALANINE AMINOTRANSFERASE 21 U/L (0-55)
[2021-04-09] MEDS: PIPERACILLIN/TAZOBACTAM (BULK) 4.5 GM in NS (IVPB) 100 ML IV SCH (06:31)
[2021-04-09] MEDS: RT--FLUTICASONE/SALMETEROL 113-14 (AIRDUO RespiCLICK) IH SCH (06:52)
[2021-04-09 07:17] LABS: ALBUMIN 3.6 GM/DL (3.2-4.5)
[2021-04-09 07:22] VITALS: BP 125/71
--- NOTE | 2021-04-09 07:51 | Cardiology Progress Note ---
Subjective Date Seen by Provider: April 09, 2021 Time Seen by Provider: 07:35 Subjective/Events-last exam Pt comfortable sitting up in chair eating breakfast. States he continues to feel stronger every day and is ready to return home. Still on nc for oxygen and has oxygen at home. Chest pain has improved. Denies any new cp/ palpitations/dizziness. Review of Systems General: No Chills, No Night Sweats HEENT: No Head Aches, No Visual Changes Pulmonary: Dyspnea, Cough Cardiovascular: No: Chest Pain, Palpitations Gastrointestinal: No: Nausea, Vomiting Genitourinary: No Dysuria, No Frequency Musculoskeletal: No: neck pain, shoulder pain Neurological: No: Weakness, Numbness Focused Exam Lactate Level 04/06/21 16:05: Lactic Acid Level 1.87 Objective-Cardiology Exam Last Set of Vital Signs Vital Signs 04/09/21 07:22 Temp 36.6 Pulse 95 Resp 22 B/P (MAP) 125/71 (89) Pulse Ox 97 O2 Delivery Nasal Cannula O2 Flow Rate 2.00 Capillary Refill : Less Than 3 Seconds I&O Intake and Output 04/09/21 00:00 Intake Total 3710 ml Balance 3710 ml Intake Oral 3470 ml IV Total 240 ml # Voids 13 # Bowel Movements 2 General: Alert, Oriented X3, Cooperative, No Acute Distress HEENT: Atraumatic, PERRLA Neck: Supple, No JVD, No Thyromegaly Lungs: Other (Bibasilar wheezing, no crackles, normal work of breathing) Heart: Regular Rate, Normal S1, Normal S2, No Murmurs Abdomen: Normal Bowel Sounds, Soft, No Tenderness, No Masses Extremities: No Clubbing, No Edema, No Tenderness/Swelling Skin: No Rashes, No Breakdown, No Significant Lesion Neuro: Normal Speech, Strength at 5/5 X4 Ext, Sensation Intact, Cranial Nerves 3-12 NL Psych/Mental Status: Mental Status NL, Mood NL Results Lab Laboratory Tests 04/09/21 05:40 A/P-Cardiology Admission Diagnosis Chest pain Pneumonia Hypertension COPD Assessment/Plan Chest pain nonspecific etiology, atypical in presentation probably secondary to pneumonia, patient has multiple risk factors for coronary artery disease, will consider stress test once clinically more stable as an outpatient. Pneumonia, started on antibiotics, managed by primary care team Sinus tachycardia, probably secondary to pneumonia and hypoxemia, feeling better now, heart rate is better. Continue to monitor COPD, acute exacerbation, managed by primary care physician Hypothyroidism, followed and managed by primary care physician Abnormal EKG, left anterior fascicular block, poor R wave progression, will evaluate 2D echo Obesity, BMI 39, we discussed weight loss Supervisory-Addendum Brief Verification & Attestation Participated in pt care: history, MDM, physical Personally performed: exam, history, MDM, supervision of care Care discussed with: Medical Student Procedures: n/a Results interpretation: Verified all documentation Patient was seen and evaluated at bedside Sitting comfortably, excited that he might go home today Still using oxygen Slightly tachycardic Mild leukocytosis slightly worse today Okay for discharge from cardiology standpoint and follow-up as an outpatient SHAUNA GARRETT MED STUDENT April 09, 2021 07:51 KALE MCMILLAN MD April 09, 2021 08:44
[2021-04-09] MEDS: ASPIRIN 81 MG CHEW (CHILDREN'S ASA) PO SCH (08:07)
[2021-04-09 11:36] VITALS: BP 152/72
--- NOTE | 2021-04-09 11:43 | Discharge Summary ---
Diagnosis/Chief Complaint Date of Admission April 06, 2021 at 17:32 Date of Discharge 04/09/21 Admission Diagnosis Admission Diagnosis See problem list Discharge Diagnosis See below Problems/Diagnosis: (1) Bilateral pneumonia Assessment & Plan: 04/08: Continue IV antibiotics and will transition to PO tomorrow, needing continuous oxygen at this time, will titrate as tolerated, home oxygen study ordered today 04/09: Will complete PO antibiotic course, home oxygen study completed Qualifiers: Qualified Codes: J18.9 - Pneumonia, unspecified organism Status: Acute (2) COPD exacerbation Status: Acute (3) Tachycardia Assessment & Plan: 04/08: Cardiology consulted, appreciate recommendations Status: Acute (4) HTN (hypertension) Assessment & Plan: 04/08: Continue home meds Qualifiers: Qualified Codes: I10 - Essential (primary) hypertension Status: Acute (5) Hypothyroidism Assessment & Plan: 04/08: Continue home meds Qualifiers: Qualified Codes: E03.9 - Hypothyroidism, unspecified Status: Chronic (6) Pulmonary nodule Assessment & Plan: 04/08: Multiple micro nodules present on CT, needs [address] scan to monitor for stablilty Status: Acute (7) Body mass index (BMI) of 30 to 39 in adult (8) DVT prophylaxis Assessment & Plan: - Lovenox Status: Acute Discharge Summary-Simple/Stand Consultations Dr Wayne: Cardiology Discharge Physical Examination Allergies: Coded Allergies: ceftriaxone (Verified Allergy, Intermediate, ITCHING, 10/30/18) Vitals & I&Os Vital Sign - Last 12Hours Date Time Temp Pulse Resp B/P (MAP) Pulse Ox O2 Delivery O2 Flow Rate FiO2 04/09/21 11:36 37.1 95 20 152/72 (98) 96 Nasal Cannula 2.00 l Intake and Output 04/09/21 00:00 Intake Total 2980 ml Balance 2980 ml General Appearance: Alert, Oriented X3, Cooperative, No Acute Distress HEENT: Mucous Memb Moist/[place] Respiratory: Normal Air Movement, Other (basilar wheezing, normal work of breathing) Cardiovascular: Regular Rate, No Murmurs Abdominal: Normal Bowel Sounds, Soft, No Tenderness, No Masses Extremities: No Edema, No Tenderness/Swelling Skin: No Rashes, No Breakdown Neuro: Normal Speech, Strength at 5/5 X4 Ext, Sensation Intact, Cranial Nerves 3-12 NL Psych/Mental Status: Mental Status NL, Mood NL Hospital Course Was the Problem List Reviewed?: Yes See final discharge diagnosis. Discussion & Recommendations 70 yo M that presented with worsening shortness of breath found to have bilateral PNA. Patient started on IV antibiotics and steroids. Patient now requiring continuous oxygen during the day which is an increase from night only. Patient up tolerating ambulation and regular diet. Will have close f.u with PCP. Discharge Condition at discharge stable Instructions to patient/family Please see electronic discharge instructions given to patient. Discharge Medications Reviewed and agree with Discharge Medication list on patient's Discharge Instruction sheet NELLI HYATT MD April 09, 2021 11:43
[2021-04-09] MEDS ORDERED: MONT10TA32 PO (11:45)
[2021-04-09] MEDS ORDERED: PRD20T PO (11:45)
[2021-04-09] MEDS ORDERED: AMOX-358 PO (11:47)
--- NOTE | 2021-04-09 11:47 | Discharge Summary ---
Discharge [facility] Reconcile Patient Problems Problems Reviewed?: Yes Discharge Medications New, Converted or Re-Newed RX: Transmitted to Pharmacy New Medications: Amoxicillin/Potassium Clav (Augmentin 875-125 Tablet) 1 Each Tablet 1 EACH PO BID, #12 TAB Prednisone (Prednisone) 20 Mg Tab 20 MG PO DAILY, #20 TAB Take 3 tab daily x 3 days then 2 tabs daily x 3 days then 1 tab daily x 3 days then 1/2 tab daily x 4 days then Stop Montelukast Sodium (Montelukast Sodium) 10 Mg Tablet 10 MG PO HS, #30 TAB Continued Medications: Albuterol Sulfate (Ventolin Hfa) 18 Gm Hfa.aer.ad 2 PUFF INH Q6H PRN for SHORTNESS OF BREATH, EA Aspirin (Aspirin EC) 81 Mg Tablet.dr 81 MG PO DAILY, TAB Fluticasone/Umeclidin/Vilanter (Trelegy Ellipta 100-62.5-25) 1 Each Blst.w.dev 1 PUFF INH DAILY, EA Hydrocodone/Acetaminophen (Hydrocodone-Acetamin 10-325 mg) 1 Each Tablet 1 EA PO Q6H PRN for PAIN-MODERATE (5-7), TAB Lisinopril (Lisinopril) 20 Mg Tablet 20 MG PO DAILY, TAB LAST FILLED 09-25-2021 #90/90 DAY SUPPLY Zolpidem Tartrate (Ambien) 10 Mg Tablet 10 MG PO HS, TAB Patient Instructions Goal/Follow Up Appt: f/u with [facility] 1-2 weeks Patient Instructions: Make sure to complete your steroids and antibiotics Activity & Diet Discharge Diet: ADA Diet, Cardiac Diet Activity as Tolerated: Yes NELLI HYATT MD April 09, 2021 11:46
[2021-04-09 14:35] VITALS: BP 152/72
--- NOTE | 2021-04-10 13:39 | Physician Query Clarification ---
PQ-Intro New Diagnosis Admission/Discharge Admission Date: April 06, 2021 at 17:32 Discharge Date: April 09, 2021 at 14:45 Dr. Romero, The medical record reflects the following clinical scenario: History/Risk Factors: li lower lobe pneumonia, COPD AE, Tachycardia, hypoxemia Clinical Findings: T 39.5, P 138, R 36, WBC 14.5, Lactic acid 1.87 Treatment: IV Piperacillin Question: What condition best reflects the above clinical scenario? Please document a response in the Progress Noter or Discharge Summary. 1. Sepsis d/t li lower lobe pneumonia 2. No sepsis. Li lower lobe pneumonia only 3. Other, with explanation of the clinical findings. 4. Clinically undetermined, no explanation for the clinical findings. PHYSICIAN RESPONSE What condition reflects above: 2 Please remember a lack of response to the above will prompt a phone page by [facility]/Coding staff. In responding to this query, please exercise your independent professional judgment. The purpose of this communication is to more accurately reflect the complexity of your patients condition. The fact that a question is asked does not imply that any particular answer is desired or expected. Thank you for your timely response to this clarification. Requestors name: Mirela THIS PHYSICIAN QUERY FORM IS A PERMANENT PART OF THE MEDICAL RECORD MIRELA OZUNA April 10, 2021 13:39 NELLI ROMERO MD April 11, 2021 21:10
== END 2021-04-09 14:45 | disposition home or self-care (01) | DRG 194 ==
LOC: EDUNIT# 15:55 → ER 15:57 → 4TH 17:32
PROVIDERS: ADMIT Internal Medicine; ATTEND Family Medicine
DX: J18.9 Pneumonia, unspecified organism (principal); J44.0 Chronic obstructive pulmonary disease with (acute) lower respiratory infection; J44.1 Chronic obstructive pulmonary disease with (acute) exacerbation; R00.0 Tachycardia, unspecified; R09.02 Hypoxemia; E86.0 Dehydration; I10 Essential (primary) hypertension; R91.1 Solitary pulmonary nodule; E11.9 Type 2 diabetes mellitus without complications; E03.9 Hypothyroidism, unspecified; I44.4 Left anterior fascicular block; E66.9 Obesity, unspecified; Z68.39 Body mass index [BMI] 39.0-39.9, adult; Z87.891 Personal history of nicotine dependence; Z79.2 Long term (current) use of antibiotics; Z79.82 Long term (current) use of aspirin; Z79.52 Long term (current) use of systemic steroids; Z88.1 Allergy status to other antibiotic agents
CPT/HCPCS: 36415; 71045; 71260; 80048; 80053; 80076; 81000; 82550; 82553; 83605; 83735; 83874; 84145; 84484; 85007; 85025; 85027; 85379; 85610; 85730; 86141; 87040; 87088; 87804; 93005; 93041; 93306; 94640; 94760; 94761; 96361; 96374

== ENCOUNTER 2021-04-19 09:47 | Emergency (ER) | payer MEDICARE ==
[~2021-04-19] VITALS: Ht 185 cm; Wt 118.0 kg
[~2021-04-19 09:47] MED LIST changes: +AMOX-358 PO; +LISI20TA26 PO; +MONT10TA32 PO; +PRD20T PO
--- NOTE | 2021-04-19 10:09 | ED Chest Pain ---
General Chief Complaint: Cardiac/General Problems Stated Complaint: HIGH HR Source: patient Exam Limitations: no limitations History of Present Illness Date Seen by Provider: April 19, 2021 Time Seen by Provider: 10:03 Initial Comments Here from [facility] with report of high heart rate. Arrives without chest pain and heart rate normal. States that his heart rate will occasionally do that. He has had that in the past. Denies chest pain, breathin g problems, weakness, vomiting or diarrhea currently. He was at the clinic for scheduled appointment. He follows up with Dr. Wayne the or 02 of May. 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 NTG SL BUILDING CONSTRUCTION CONTRACTOR: No Associated Symptoms: No abdominal pain, No back pain, No nausea/vomiting, No shortness of breath, No weakness Allergies and Home Medications Allergies Coded Allergies: ceftriaxone (Verified Allergy, Intermediate, ITCHING, 10/30/18) Home Medications Albuterol Sulfate 18 Gm Hfa.aer.ad, 2 PUFF INH Q6H PRN for SHORTNESS OF BREATH, (Reported) Amoxicillin/Potassium Clav 1 Each Tablet, 1 EACH PO BID Prescribed by: NELLI HYATT on 04/09/21 1147 Aspirin 81 Mg Tablet.dr, 81 MG PO DAILY, (Reported) Fluticasone/Umeclidin/Vilanter 1 Each Blst.w.dev, 1 PUFF INH DAILY, (Reported) Hydrocodone/Acetaminophen 1 Each Tablet, 1 EA PO Q6H PRN for PAIN-MODERATE (5- 7), (Reported) Lisinopril 20 Mg Tablet, 20 MG PO DAILY, (Reported) LAST FILLED 09-25-2021 #90/90 DAY SUPPLY Montelukast Sodium 10 Mg Tablet, 10 MG PO HS Prescribed by: NELLI HYATT on 04/09/21 1145 Prednisone 20 Mg Tab, 20 MG PO DAILY Take 3 tab daily x 3 days then 2 tabs daily x 3 days then 1 tab daily x 3 days then 1/2 tab daily x 4 days then Stop Prescribed by: NELLI HYATT on 04/09/21 1145 Zolpidem Tartrate 10 Mg Tablet, 10 MG PO HS, (Reported) Patient Home Medication List Home Medication List Reviewed: Yes Review of Systems Review of Systems Constitutional: see HPI; No chills, No fever EENTM: No Symptoms Reported Respiratory: Denies Cough, Denies Shortness of Air Cardiovascular: Denies Chest Pain, Denies Edema; Irregular Heart Rate Gastrointestinal: Denies Nausea, Denies Vomiting Genitourinary: No Symptoms Reported Musculoskeletal: no symptoms reported Skin: no symptoms reported All Other Systems Reviewed Negative Unless Noted: Yes Past Chnukov-Mudqks-Evlppl Hx Past Med/Social Hx: Reviewed Nursing Past Med/Soc Hx Patient Social History Alcohol Use: Regular Use Alcohol Beverage of Choice: Whiskey, [place] Former Smoker, Quit: Oct 30, 2014 2nd Hand Smoke Exposure: No Recent Hopitalizations: No Immunizations Up To Date Tetanus Booster (TDap): Unknown PED Vaccines UTD: Yes Date of Pneumonia Vaccine: Aug 30, 2018 Seasonal Allergies Seasonal Allergies: No Past Medical History Surgeries: No (Wound debriedment) Respiratory: Yes COPD Cardiac: No Hypertension Neurological: No Sexually Transmitted Disease: No HIV/AIDS: No Genitourinary: No Gastrointestinal: No Musculoskeletal: No Endocrine: Yes (patient states is border line) Diabetes, Non-Insulin dep HEENT: No Cancer: Yes Skin Did You Recieve Any Treatments: Yes What Type of Treatment Did You: Surgical Intervention Psychosocial: No Integumentary: Yes (HX of Staph) Blood Disorders: No Adverse Reaction/Blood Tranf: No Family Medical History Reviewed Nursing Family Hx No Pertinent Family Hx HTN Physical Exam Vital Signs Capillary Refill : Height, Weight, BMI Height: 5'8.00" Weight: 240lbs. 1.0oz. [id number]; 39.54 BMI Method:Stated General Appearance: No Apparent Distress, WD/WN, Obese HEENT: PERRL/EOMI, Pharynx Normal Neck: Non Tender, Supple Respiratory: Lungs Clear, Normal Breath Sounds Cardiovascular: Regular Rate, Rhythm, No Murmur Gastrointestinal: Non Tender, Soft Extremity: Normal Range of Motion, Non Tender Neurologic/Psychiatric: Alert, Oriented x3 Skin: Normal Color, Warm/Dry Progress/Results/Core Measures Results/Orders Lab Results Laboratory Tests Test 04/19/21 10:02 Range/Units White Blood Count 10.7 4.3-11.0 10^3/uL Red Blood Count 5.12 4.30-5.52 10^6/uL Hemoglobin 14.9 13.3-17.7 g/dL Hematocrit 45 40-54 % Mean Corpuscular Volume 89 80-99 fL Mean Corpuscular Hemoglobin 29 25-34 pg Mean Corpuscular Hemoglobin Concent 33 32-36 g/dL Red Cell Distribution Width 14.0 10.0-14.5 % Platelet Count 232 130-400 10^3/uL Mean Platelet Volume 9.2 9.0-12.2 fL Immature Granulocyte % (Auto) 2 % Neutrophils (%) (Auto) 58 42-75 % Lymphocytes (%) (Auto) 27 12-44 % Monocytes (%) (Auto) 10 0-12 % Eosinophils (%) (Auto) 2 0-10 % Basophils (%) (Auto) 1 0-10 % Neutrophils # (Auto) 6.3 1.8-7.8 10^3/uL Lymphocytes # (Auto) 2.9 1.0-4.0 10^3/uL Monocytes # (Auto) 1.0 0.0-1.0 10^3/uL Eosinophils # (Auto) 0.2 0.0-0.3 10^3/uL Basophils # (Auto) 0.1 0.0-0.1 10^3/uL Immature Granulocyte # (Auto) 0.2 H 0.0-0.1 10^3/uL Prothrombin Time 12.1 L 12.2-14.7 SEC INR Comment 0.9 0.8-1.4 Activated Partial Thromboplast Time 25 24-35 SEC D-Dimer < 0.27 0.00-0.49 UG/ML Sodium Level 134 L 135-145 MMOL/L Potassium Level 4.4 3.6-5.0 MMOL/L Chloride Level 97 L 98-107 MMOL/L Carbon Dioxide Level 24 21-32 MMOL/L Anion Gap 13 5-14 MMOL/L Blood Urea Nitrogen 22 H 7-18 MG/DL Creatinine 0.85 0.60-1.30 MG/DL Estimat Glomerular Filtration Rate > 60 BUN/Creatinine Ratio 26 Glucose Level 205 H 70-105 MG/DL Calcium Level 9.0 8.5-10.1 MG/DL Corrected Calcium 9.2 8.5-10.1 MG/DL Magnesium Level 1.5 L 1.6-2.4 MG/DL Total Bilirubin 0.7 0.1-1.0 MG/DL Aspartate Amino Transf (AST/SGOT) 18 5-34 U/L Alanine Aminotransferase (ALT/SGPT) 32 0-55 U/L Alkaline Phosphatase 44 40-136 U/L Myoglobin 55.6 10.0-92.0 NG/ML Troponin I < 0.028 <0.028 NG/ML Total Protein 6.6 6.4-8.2 GM/DL Albumin 3.7 3.2-4.5 GM/DL My Orders Orders - SAVANAH TERRY MD Cbc With Automated Diff (04/19/21 10:08) Magnesium (04/19/21 10:08) Chest 1 View, Ap/Pa Only (04/19/21 10:08) Ekg Tracing (04/19/21 10:08) Comprehensive Metabolic Panel (04/19/21 10:08) Myoglobin Serum (04/19/21 10:08) Protime With Inr (04/19/21 10:08) Partial Thromboplastin Time (04/19/21 10:08) O2 (04/19/21 10:08) Monitor-Rhythm Ecg Trace Only (04/19/21 10:08) Lipid Panel (04/20/21 06:00) Ed Iv/Invasive Line Start (04/19/21 10:08) Fibrin Degradation Products (04/19/21 10:08) Troponin I (04/19/21 10:08) Progress Progress Note : Progress Note Seen and evaluated. Chest pain protocol initiated. Patient is already had aspirin and it is without pain currently. Heart rate normal. We will go ahead and evaluate labs and EKG and monitor the patient. Patient is in agreement with plan. 1200: Heart rate remained 70s to low 80s without distress. No chest pain. Labs reviewed and no acute findings. Patient will continue his follow-up appointment as scheduled with cardiology. Discharged home with return precautions. Patient verbalized understanding instructions and agreement with plan. Initial ECG Impression Date: April 19, 2021 Initial ECG Impression Time: 09:56 Initial ECG Rate: 77 Initial ECG Rhythm: Normal Sinus Comment Sinus rhythm with left anterior fascicular block. Left axis deviation. No evidence of ST elevation ND. Rate improved from previous of 04/06/2021 which was tachycardic. Interpreted by me. Diagnostic Imaging Diagonstic Imaging: Xray Plain Films/CT/US/NM/MRI: chest Comments [facility], [place] NAME: ELOISA WILKINSON [facility] REC#: [id number] PT STATUS: REG ER : 1950 PHYSICIAN: SAVANAH TERRY MD ADMIT DATE: 04/19/21/ER Draft Date of Exam:04/19/21 CHEST 1 VIEW, AP/PA ONLY INDICATION: Chest pain. Time of exam 10:27 a.m. Correlation is made with prior chest 04/07/2021. Heart size is normal. There are some mild basilar interstitial changes which are likely chronic. No infiltrate, effusion or pneumothorax is detected. IMPRESSION: No acute cardiopulmonary process is detected. Dictated on workstation # [id number] Dict: 04/19/21 1026 Trans: 04/19/21 1029 [facility] [id number] Interpreted by: PENELOPE LANE MD Electronically signed by: Departure Impression Primary Impression: Paroxysmal tachycardia Disposition: HOME, SELF-CARE Condition: Improved Departure-Patient Inst. Decision time for Depature: 12:02 Referrals: [facility] [place] ([place]P/Family) Primary Care Physician KALE WAYNE MD Patient Instructions: Tachycardia (DC) Add. Discharge Instructions: All discharge instructions reviewed with patient and/or family. Voiced understanding. Follow-up with Dr. Wayne as scheduled. Follow-up with your primary doctor as needed. Return for worse pain, chest pain, breathing problems, fast heart rate, weakness, vomiting, sweating or other concerns as needed. Continue home medications as previously prescribed. SAVANAH TERRY MD April 19, 2021 10:09
[2021-04-19 10:15] LABS: BASOPHILS # (AUTO) 0.1 10^3/uL (0.0-0.1); BASOPHILS % (AUTO) 1 % (0-10); EOSINOPHILS # (AUTO) 0.2 10^3/uL (0.0-0.3); EOSINOPHILS % (AUTO) 2 % (0-10); HEMATOCRIT 45 % (40-54); HEMOGLOBIN 14.9 g/dL (13.3-17.7); LYMPHOCYTES # (AUTO) 2.9 10^3/uL (1.0-4.0); LYMPHOCYTES % (AUTO) 27 % (12-44); MEAN CORPUSCULAR HEMOGLOBIN 29 pg (25-34); MEAN CORPUSCULAR HGB CONC 33 g/dL (32-36); MEAN CORPUSCULAR VOLUME 89 fL (80-99); MEAN PLATELET VOLUME 9.2 fL (9.0-12.2); MONOCYTES % (AUTO) 10 % (0-12); NEUTROPHILS # (AUTO) 6.3 10^3/uL (1.8-7.8); NEUTROPHILS % (AUTO) 58 % (42-75); PLATELET COUNT 232 10^3/uL (130-400); WHITE BLOOD COUNT 10.7 10^3/uL (4.3-11.0)
[2021-04-19 10:30] LABS: ALBUMIN 3.7 GM/DL (3.2-4.5); CHLORIDE 97 MMOL/L (98-107); INR 0.9 (0.8-1.4); POTASSIUM 4.4 MMOL/L (3.6-5.0); PROTHROMBIN TIME PATIENT 12.1 SEC (12.2-14.7); SODIUM 134 MMOL/L (135-145)
--- NOTE | 2021-04-19 10:30 | Diagnostic Imaging Report ---
INDICATION: Chest pain. Time of exam 10:27 a.m. Correlation is made with prior chest 04/07/2021. Heart size is normal. There are some mild basilar interstitial changes which are likely chronic. No infiltrate, effusion or pneumothorax is detected. IMPRESSION: No acute cardiopulmonary process is detected. Dictated by: Dictated on workstation # [id number]
[2021-04-19 10:33] LABS: GLUCOSE 205 MG/DL (70-105); TOTAL PROTEIN 6.6 GM/DL (6.4-8.2)
[2021-04-19 10:34] LABS: CARBON DIOXIDE 24 MMOL/L (21-32)
[2021-04-19 10:35] LABS: BILIRUBIN,TOTAL 0.7 MG/DL (0.1-1.0)
[2021-04-19 10:36] LABS: ALKALINE PHOSPHATASE 44 U/L (40-136); CREATININE SERUM 0.85 MG/DL (0.60-1.30); GFR ESTIMATED > 60
[2021-04-19 10:37] LABS: BUN/CREATININE RATIO 26
[2021-04-19 10:39] LABS: ALANINE AMINOTRANSFERASE 32 U/L (0-55); MAGNESIUM 1.5 MG/DL (1.6-2.4)
[2021-04-19 12:21] VITALS: BP 130/72
== END 2021-04-19 12:21 | disposition home or self-care (01) ==
LOC: EDUNIT# 09:47 → ER 09:48
DX: I47.9 Paroxysmal tachycardia, unspecified (principal); J44.9 Chronic obstructive pulmonary disease, unspecified; E11.9 Type 2 diabetes mellitus without complications; E66.9 Obesity, unspecified; Z68.39 Body mass index [BMI] 39.0-39.9, adult; Z87.891 Personal history of nicotine dependence; Z79.82 Long term (current) use of aspirin; Z79.52 Long term (current) use of systemic steroids; Z79.51 Long term (current) use of inhaled steroids; Z79.899 Other long term (current) drug therapy
CPT/HCPCS: 36415; 71045; 80053; 83735; 83874; 84484; 85025; 85379; 85610; 85730; 93005; 93041

== ENCOUNTER 2021-06-26 05:36 | Outpatient (CLI) | payer MEDICARE ==
[~2021-06-26] VITALS: Ht 172.7 cm; Wt 118.2 kg
[~2021-06-26 05:36] MED LIST changes: -SULF1TAB35 PO; +SULF1TAB38 PO
== END 2021-06-26 11:49 | disposition home or self-care (01) ==
LOC: PREOP 05:36
PROVIDERS: ATTEND Surgery
DX: Z01.818 Encounter for other preprocedural examination (principal)

== ENCOUNTER 2021-07-03 08:19 | Day surgery (SDC) | payer MEDICARE ==
[2021-07-03] VITALS (11 sets, daily range): BP systolic 127–170; BP diastolic 59–92
[~2021-07-03] VITALS: Ht 172.7 cm; Wt 118.2 kg
[2021-07-03] MEDS ORDERED: CLINDAMYCIN 600 MG/50 ML IVPB 50 ML IV ONE ×2 (09:04→09:15)
[2021-07-03 09:11] LABS: HEMATOCRIT 51 % (40-54); HEMOGLOBIN 16.6 g/dL (13.3-17.7); MEAN CORPUSCULAR HEMOGLOBIN 29 pg (25-34); MEAN CORPUSCULAR HGB CONC 32 g/dL (32-36); MEAN CORPUSCULAR VOLUME 89 fL (80-99); MEAN PLATELET VOLUME 9.2 fL (9.0-12.2); PLATELET COUNT 272 10^3/uL (130-400); WHITE BLOOD COUNT 7.7 10^3/uL (4.3-11.0)
[2021-07-03] MEDS ORDERED: LACTATED RINGERS 1,000 ML IV PRN (09:15)
[2021-07-03] MEDS ORDERED: PANT40TA2 PO (10:07)
[2021-07-03] MEDS ORDERED: DIPH25CA79 PO (10:07)
[2021-07-03] MEDS ORDERED: ATOR40TA70 PO (10:07)
[2021-07-03] MEDS ORDERED: proPOfol 200 MG/20 ML (DIPRIVAN) VIAL IV ONE (10:40)
[2021-07-03] MEDS ORDERED: ROCURONIUM 10 MG/ML 5 ML SYRINGE IV ONE (10:40)
[2021-07-03] MEDS ORDERED: LIDOCAINE PF 2% 5 ML (XYLOCAINE) VIAL ONE ×2 (10:40→12:22)
[2021-07-03] MEDS ORDERED: fentaNYL INJ 100 MCG/2 ML AMP ONE ×2 (10:41→12:31)
[2021-07-03] MEDS ORDERED: MIDAZOLAM 2 MG/2 ML (VERSED) VIAL ONE (10:41)
[2021-07-03] MEDS ORDERED: LIDOCAINE/EPI 1%-1:100,000 (XYLOCAINE) 20ML ONE (11:31)
--- NOTE | 2021-07-03 11:31 | Progress Note-Pre Operative ---
Pre-Operative Progress Note H&P Reviewed The H&P was reviewed, patient examined and no changes noted. Time Seen by Provider: 11: Date H&P Reviewed: Jul 03, 2021 Time H&P Reviewed: : Pre-Operative Diagnosis: Incarcerated umb hernia CONSUELO PRAJAPATI DO Jul 03, 2021 11:31
[2021-07-03] MEDS ORDERED: GLYCOPYRROLATE 0.2 MG/ML (ROBINUL) 2 ML VIAL ONE (12:21)
[2021-07-03] MEDS ORDERED: ONDANSETRON 4 MG/2 ML (SDV) Z0FRAN ONE (12:21)
[2021-07-03] MEDS ORDERED: SEVOFLURANE (ULTANE) 15 ML INHAL SOLN ONE (12:22)
[2021-07-03] MEDS ORDERED: NEOSTIGMINE 3 MG/3 ML VIAL ONE (12:22)
--- NOTE | 2021-07-03 12:31 | Progress Note-Post Operative ---
Post-Operative Progess Note Surgeon (s)/Durable Medical Equipment Technician (s) Surgeon CONSUELO PRAJAPATI DO Durable Medical Equipment Technician: Ashley Pre-Operative Diagnosis Incarcerated umb hernia Post-Operative Diagnosis same Procedure & Operative Findings Date of Procedure 07/03/21 Procedure Performed/Findings Laparoscopic Umbilical Herniarraphy with mesh placment COMPLICATIONS: None. INDICATIONS: The patient is a 70, male with an [incarcerated umbilical] hernia, which has continued to increase in size and cause discomfort. The patient was explained the risk and benefits of the procedure and wished to proceed with the procedure. Consent was signed on the chart. DESCRIPTION OF PROCEDURE: The patient was taken into the operating suite, prepped and draped in sterile fashion. Surgical pause was performed. Local anesthetic was infiltrated in left upper quadrant. A 15 blade scalpel was used to make a small skin incision. Cautery was used to dissect down to the fascia, which was then scored and divided the muscle, went through the posterior sheath and a balloon trocar was inserted into the abdomen. The abdomen was then insufflated. Could see omentum going into the umbilical hernia/fascial defect and picture was taken. A 5 mm trocar was placed in the right lower quadrant and another 5 mm trocar was placed in left lower quadrant. [The defect was then closed using 0 Vicryl with a Matthieu-Yvan]. Echo Ventralight 4.5 inch mesh was then inserted in the abdomen grabbed through the stab incision. The balloon was inflated on the mesh. Circumferential tacks were placed with a SecureStrap Tacker. The balloon was then removed and inner crown was created as well. The mesh was tacked with pressure being decreased. The 12 mm fascial defect was then closed using 0 Vicryl. The abdomen was then desufflated, the trocars were removed. The skin was then closed using 4-0 Monocryl in a running subcuticular fashion. The abdomen was washed and dried and Skin Affix was placed over the incisions. The patient tolerated procedure well without any complications. He was taken to recovery room in stable condition. Dr. Ramirez assisted on the case helping to make incisions, close incisions, identify anatomy and hold anatomy out of the way. Anesthesia Type GET Estimated Blood Loss Estimated blood loss (mL): scant Specimens/Packing Specimens Removed none CONSUELO PRAJAPATI DO Jul 03, 2021 12:31
[2021-07-03] MEDS ORDERED: HYDR-3820 PO (12:32)
--- NOTE | 2021-07-03 12:33 | Discharge Inst-Surgical ---
Discharge Inst-Surgical Depart Medication/Instructions New, Converted or Re-Newed RX: Transmitted to Pharmacy Patient Instructions Follow up Appt: Make appointment for 1 week. [phone] Instructions: No lifting greater than 20 pounds. No strenuous activity. May shower in 24 hours, no tub bath or soaking. Use incentive spirometer at home as directed. No Smoking Skin/Wound Care: May remove bandages in am. You need to leave the Dermabond on incision it will fall off on it's own. Symptoms to Report: Appetite Changes, Extremity Discoloration, Numbness/Tingling, Swelling Increased, Bleeding Excessive, Eyesight Changes, Pain Increased, Urine Color Change, Constipation(Persistent), Fever over 101 degree F, Pain/Pressure in chest, Urinating Difficulty, Cough Up/Vomit Blood, Heart Beat Irreg/Pounding, Pain/Pressure in jaw, Cramps in feet or legs, Lightheadedness, Pain/Pressure in shoulder, Diarrhea(Persistent), Memory Changes Suddenly, Questions/Concerns, Weight gain consecutive days, Dizziness/Fainting, Nausea/Vomiting, Shortness of Breath, Weight gain over 2 pounds If questions or concerns contact your physician Or seek help at emergency department. Activity Activity as Tolerated: Yes Activity Instructions: Avoid Stress to Incision Driving Instructions: No Driving/Refer to Dr. Oliva Discharge Diet: No Restrictions Diet After 24 Hours: Clear Liquid if Nauseous If Any Problems/Questions/Issu: Contact Your Physician, Go to Emergency Room Skin/Wound Care Infection Signs and Symptoms: Increased Redness, Foul Odor of Wound, Increased Drainage, Skin Itchy or Has a Rash, Increased Swelling, Temperature Above 101 F Wound Care Comment: Heating pad to shoulder or neck tonight for pain Bathing Instructions: Shower Stitches/[place]/Dermabond Dis: Dermabond Ice Pack: Ice On and Off Site CONSUELO PRAJAPATI DO Jul 03, 2021 12:33
[2021-07-03] MEDS ORDERED: ONDANSETRON 4 MG/2 ML (SDV) Z0FRAN IVP PRN (13:00)
[2021-07-03] MEDS ORDERED: morphine INJ 10 MG/ML 1ML (SYR OR VIAL) IVP ONE (13:00)
[2021-07-03] MEDS ORDERED: HYDROmorphone 2 MG/ML VIAL (DILAUDID) IV ONE (13:00)
[2021-07-03] MEDS ORDERED: HYDROmorphone 2 MG/ML VIAL (DILAUDID) ONE (13:06)
--- NOTE | 2021-07-03 15:17 | Anesthesia-General Post-Op ---
General Patient Condition Mental Status/LOC: Same as Preop Cardiovascular: Satisfactory Nausea/Vomiting: Absent Respiratory: Satisfactory Pain: Controlled Complications: Absent Post Op Complications Complications None Follow Up Care/Instructions Patient Instructions None needed. Anesthesia/Patient Condition Patient Condition Patient is doing well, no complaints, stable vital signs, no apparent adverse anesthesia problems. ALESSIO KAY DO Jul 03, 2021 15:17
== END 2021-07-03 14:55 | disposition home or self-care (01) ==
LOC: SDC 08:19
PROVIDERS: ATTEND Surgery
DX: K42.0 Umbilical hernia with obstruction, without gangrene (principal); I10 Essential (primary) hypertension; J44.9 Chronic obstructive pulmonary disease, unspecified; E66.01 Morbid (severe) obesity due to excess calories; E78.00 Pure hypercholesterolemia, unspecified; E11.9 Type 2 diabetes mellitus without complications; Z79.899 Other long term (current) drug therapy; Z79.82 Long term (current) use of aspirin; Z79.891 Long term (current) use of opiate analgesic; Z87.891 Personal history of nicotine dependence; Z99.81 Dependence on supplemental oxygen; Z68.41 Body mass index [BMI] 40.0-44.9, adult; Z79.2 Long term (current) use of antibiotics; Z79.1 Long term (current) use of non-steroidal anti-inflammatories (NSAID); Z79.84 Long term (current) use of oral hypoglycemic drugs
CPT/HCPCS: 49653; 85027; 87081; C1781; 36415

== ENCOUNTER 2022-06-22 22:15 | Emergency (ER) | payer MEDICARE, MEDICAID ==
[~2022-06-22] VITALS: Ht 170.1 cm; Wt 118.3 kg
[~2022-06-22 22:15] MED LIST changes: +ATOR40TA70 PO; +DIPH25CA79 PO; +MONT-40 PO; -MONT10TA32 PO; +PANT40TA2 PO
--- NOTE | 2022-06-22 23:10 | ED General ---
General Chief Complaint: Cardiac/General Problems Stated Complaint: COVID + 06/22 - LOW OXYGEN - COUGH - FEVER -CHILLS Nursing Triage Note: PT ARRIVAL TO ER WITH COMPLAINT OF HOME LOW O2 SATS AT HOME. PT STATES THAT HE TESTED POSITIVE YESTERDAY FOR COVID WITH HOME COVID TEST. 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 PT IS AFEBRILE TODAY. Source of Information: Patient Exam Limitations: No Limitations History of Present Illness Date Seen by Provider: Jun 22, 2022 Time Seen by Provider: 23:00 Initial Comments Patient is a 71-year-old male who presents to the emergency department today with a chief complaint of cough, congestion, slightly increased shortness of breath above his normal baseline with COPD, low oxygen saturations at home he states 85 to 86% on his home monitor. Patient states he started having symptoms last Thursday, 6 days ago that were COVIDlike. He ran high fever had body aches and generally did not feel well. He states he finally tested today with a "home test" and it was positive. He told his [id number]-ao-sfn and son and they in sisted he come to the emergency room to be "checked out". Patient states right now he feels much much better. He does not have any chest pain, is not more short of breath than usual. No productive cough. No diarrhea no problems with urination. No swelling or pain in his legs. No headache. On evaluation he is sitting comfortably at the bedside on his normal 1-1/2 L of oxygen per nasal cannula. Oxygen saturations are 93 to 95%. He is not tachycardic. His blood pressure is great. All other review of systems reviewed and negative except as stated Timing/Duration: 5-6 Days Severity: Mild Associated Systoms: Cough, Fever/Chills, Malaise (earleri in the week) Allergies and Home Medications Allergies Coded Allergies: ceftriaxone (Verified Allergy, Intermediate, ITCHING, 10/30/18) Patient Home Medication List Home Medication List Reviewed: Yes Albuterol Sulfate (Ventolin Hfa) 18 Gm Hfa.aer.ad, 2 PUFF INH Q6H PRN for SHORTNESS OF BREATH, (Reported) Entered as Reported by: JAYJAY FARRELL on 03/05/21 1421 Aspirin (Aspirin EC) 81 Mg Tablet.dr, 81 MG PO DAILY, (Reported) Entered as Reported by: JAYJAY FARRELL on 03/05/21 1421 Atorvastatin Calcium (Atorvastatin Calcium) 40 Mg Tablet, 40 MG PO HS, (Reported) Entered as Reported by: MATT LANGE on 07/03/211006 Diphenhydramine HCl (Benadryl) 25 Mg Capsule, 25 MG PO UD, (Reported) Entered as Reported by: MATT LANGE on 07/03/211006 Fluticasone/Umeclidin/Vilanter (Trelegy Ellipta 100-62.5-25) 1 Each Blst.w.dev, 1 PUFF INH DAILY, (Reported) Entered as Reported by: AJ TRIVEDI on 03/05/21 0926 Hydrocodone/Acetaminophen (Hydrocodone-Acetamin 10-325 mg) 1 Each Tablet, 1 EA PO Q6H PRN for PAIN-MODERATE (5-7) Prescribed by: CONSUELO PRAJAPATI on 07/03/21 1233 Pantoprazole Sodium (Protonix) 40 Mg Tablet.dr, 40 MG PO DAILY, (Reported) Entered as Reported by: MATT LANGE on 07/03/211006 Zolpidem Tartrate (Ambien) 10 Mg Tablet, 10 MG PO HS, (Reported) Entered as Reported by: JAYJAY FARRELL on 03/05/21 142 Review of Systems Review of Systems Constitutional: see HPI, fever, malaise EENTM: no symptoms reported Respiratory: cough, phlegm, short of breath Cardiovascular: no symptoms reported Gastrointestinal: no symptoms reported Genitourinary: no symptoms reported Musculoskeletal: no symptoms reported Skin: no symptoms reported Psychiatric/Neurological: No Symptoms Reported All Other Systems Reviewed Negative Unless Noted: Yes Past Jsatdnx-Nnbpuw-Rtkfqd Hx Patient Social History Tobacco Use?: No Use of E-Cig and/or Vaping dev: No Substance use?: No Alcohol Use?: No Pt feels they are or have been: No Immunizations Up To Date Tetanus Booster (TDap): Unknown PED Vaccines UTD: Yes Influenza Vaccine Up-to-Date: No; Not Current First/Initial COVID19 Vaccinat: january 2021 Second COVID19 Vaccination Romero: february 2021 Third COVID19 Vaccination Date: january 2021 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: [employer] Seasonal Allergies Seasonal Allergies: No Past Medical History Surgeries: Yes (SKIN LESION AND CYST REMOVAL; ) Respiratory: Yes (O2 1.5L AT HS ) COPD Currently Using CPAP: No Currently Using BIPAP: No Cardiac: Yes Hypertension Neurological: No Sexually Transmitted Disease: No HIV/AIDS: No Genitourinary: No Gastrointestinal: No Musculoskeletal: Yes Arthritis, Chronic Back Pain Endocrine: Yes (patient states is border line- NO MEDS OR INSULIN) Diabetes, Non-Insulin dep HEENT: Yes Cataract Cancer: Yes Skin Did You Recieve Any Treatments: Yes What Type of Treatment Did You: Surgical Intervention Psychosocial: No Integumentary: Yes (HX of Staph) Blood Disorders: No Adverse Reaction/Blood Tranf: No Family Medical History No Pertinent Family Hx HTN Physical Exam Vital Signs Vital Signs - First Documented 06/22/22 22:50 Temp 36.9 Pulse 87 Resp 24 B/P (MAP) 182/91 (121) Pulse Ox 92 O2 Delivery Room Air O2 Flow Rate 2.00 Capillary Refill : Less Than 3 Seconds Height, Weight, BMI Height: 5'8.00" Weight: 240lbs. 1.0oz. 108.397178xq; 40.00 BMI Method:Stated General Appearance: No Apparent Distress, WD/WN Eyes: Bilateral Eye Normal Inspection, Bilateral Eye PERRL, Bilateral Eye EOMI HEENT: PERRL/EOMI Neck: Normal Inspection Respiratory: Lungs Clear, Normal Breath Sounds, No Accessory Muscle Use, No Respiratory Distress Cardiovascular: Regular Rate, Rhythm, Normal Peripheral Pulses Extremity: Normal Capillary Refill, Normal Inspection, Normal Range of Motion, Non Tender, No Calf Tenderness, No Pedal Edema Neurologic/Psychiatric: Alert, Oriented x3, No Motor/Sensory Deficits, Normal Mood/Affect, clinical documentation specialist II-XII Norm as Tested Skin: Normal Color, Warm/Dry Progress/Results/Core Measures Suspected Sepsis SIRS Temperature: Pulse: 87 Respiratory Rate: 24 Blood Pressure 182 /91 Mean: 121 Results/Orders Lab Results Laboratory Tests Test 06/22/22 22:46 Range/Units SARS-CoV-2 RNA (RT-PCR) Detected H Not Detecte My Orders Orders - BALDEMAR PATTERSON MD Covid 19 Inhouse Test (06/22/22 23:10) Isolation Central Supply Req (06/22/22 23:10) Vital Signs/I&O 06/22/22 06/22/22 06/22/22 22:50 22:50 23:25 Temp 36.9 Pulse 87 85 Resp 24 22 B/P (MAP) 182/91 (121) 130/78 Pulse Ox 92 93 O2 Delivery Room Air Room Air Room Air O2 Flow Rate 2.00 Capillary Refill : Less Than 3 Seconds Blood Pressure Mean: 121 Progress Note : Time: 23:12 Progress Note Discussed evaluation with patient, he clinically looks great. Vital signs are all stable. He has no significant complaints of illness at this time. He states his last fever was sometime yesterday morning. He does have oxygen at home 1-1/2 L that he wears as needed. He does not have any increased work of breathing or productive cough at this time. He has had a little sputum over the course of the last week. He is outside the window for treatment with Paxil bed or monoclonal antibody therapy as his symptoms started last Thursday greater than 5 days ago. He is a patient of Dr. Eris angelo. He is not scheduled for a follow- up appointment for another month or so but states should he have any concerns he will call and get in sooner. No clinical or objective findings to warrant testing here in the emergency department at this time. Recommendations for supportive care are made. Return precautions discussed, he verbalized understanding. All questions are sought and answered. Departure Impression Primary Impression: COVID-19 Disposition: 01 HOME, SELF-CARE Condition: Stable Departure-Patient Inst. Decision time for Depature: 23:13 Referrals: ULISES MCCARTY MD (PCP/Family) Primary Care Physician Patient Instructions: COVID-19 Overview Add. Discharge Instructions: Drink plenty of fluids to stay well-hydrated. Continue your daily medications as prescribed by your primary care doctor. Use your oxygen over the next couple of days while you are continuing to improve from this likely COVID infection. We will call you in the morning with the confirmatory test for your COVID. As you have had symptoms for the last 6 days, you can move about in the community wearing a mask for the next 4 days. Tylenol as needed for any body aches or fever. Follow-up with your primary care doctor as needed. Return to the emergency department for any new, concerning or emergent complaints. Copy Copies To 1: ULISES MCCARTY MD, KATHRYN M MD Jun 22, 2022 23:09
[2022-06-22 23:25] VITALS: BP 130/78
== END 2022-06-22 23:25 | disposition home or self-care (01) ==
LOC: EDUNIT# 22:15 → ER 22:17
DX: U07.1 COVID-19 (principal); J44.9 Chronic obstructive pulmonary disease, unspecified; Z99.81 Dependence on supplemental oxygen
CPT/HCPCS: 87636; 99283

== ENCOUNTER 2022-07-14 05:36 | Outpatient (CLI) | payer MEDICARE, MEDICAID ==
[~2022-07-14] VITALS: Ht 172.7 cm; Wt 114.0 kg
[2022-07-14] MEDS ORDERED: ATOR10TA66 PO (13:13)
[2022-07-14] MEDS ORDERED: CITA10TA9 PO (13:13)
== END 2022-07-14 13:32 ==
LOC: PREOP 05:36
PROVIDERS: ATTEND Surgery
DX: Z01.818 Encounter for other preprocedural examination (principal); R22.2 Localized swelling, mass and lump, trunk

== ENCOUNTER 2022-07-16 07:03 | Day surgery (SDC) | payer MEDICARE, MEDICAID ==
[~2022-07-16] VITALS: Ht 114 cm; Wt 114.0 kg
[2022-07-16] VITALS (10 sets, daily range): BP systolic 109–143; BP diastolic 41–87
[~2022-07-16 07:03] MED LIST changes: +ATOR10TA66 PO; +CITA10TA9 PO
[2022-07-16] MEDS ORDERED: CLINDAMYCIN 600 MG/50 ML IVPB 50 ML IV ONE (07:30)
[2022-07-16] MEDS ORDERED: LACTATED RINGERS 1,000 ML IV PRN (07:30)
--- NOTE | 2022-07-16 08:24 | Progress Note-Pre Operative ---
Pre-Operative Progress Note Date of Available H&P: Jul 09, 2022 Date H&P Reviewed: Jul 16, 2022 Time H&P Reviewed: 08:21 History & Physical: H&P Reviewed, Patient Examed, No changes noted Pre-Operative Diagnosis: Upper back mass, left and right CONSUELO PRAJAPATI DO Jul 16, 2022 08:24
[2022-07-16] MEDS ORDERED: LIDOCAINE/EPI 2% 1:200,00 (XYLOCAINE) 20 ML VIAL ONE (08:32)
[2022-07-16] MEDS ORDERED: fentaNYL INJ 100 MCG/2 ML AMP ONE (09:51)
[2022-07-16] MEDS ORDERED: ONDANSETRON 4 MG/2 ML (SDV) Z0FRAN ONE (09:51)
[2022-07-16] MEDS ORDERED: LIDOCAINE PF 2% 5 ML (XYLOCAINE) VIAL ONE (09:51)
[2022-07-16] MEDS ORDERED: proPOfol 200 MG/20 ML (DIPRIVAN) VIAL IV ONE ×2 (09:51→10:50)
[2022-07-16] MEDS ORDERED: MIDAZOLAM 2 MG/2 ML (VERSED) VIAL ONE (09:51)
[2022-07-16] MEDS ORDERED: SEVOFLURANE (ULTANE) 15 ML INHAL SOLN ONE ×2 (09:51→10:37)
[2022-07-16] MEDS ORDERED: SUCCINYLCHOLINE INJ 100 MG/5 ML SYR/VIAL ONE (10:37)
--- NOTE | 2022-07-16 11:04 | Progress Note-Post Operative ---
Post-Operative Progess Note Surgeon (s)/Mine Analyst (s) Surgeon CONSUELO PRAJAPATI DO Mine Analyst: MIRIAM Bourne Pre-Operative Diagnosis Upper back mass, left and right Post-Operative Diagnosis same pending path Procedure & Operative Findings Date of Procedure 07/16/22 Procedure Performed/Findings Exc Left upper back mass, 5.3cm incision Exc Right upper back mass, 3.4 cm incision Anesthesia Type GET Estimated Blood Loss Estimated blood loss (mL): scant Specimens/Packing Specimens Removed Left mass, 4.2 x 3.6 x 2.4 cm right mass, 2.1 x 1.4 x 1.6cm CONSUELO PRAJAPATI DO Jul 16, 2022 11:04
--- NOTE | 2022-07-16 11:05 | Discharge Inst-Surgical ---
Discharge Inst-Surgical Depart Medication/Instructions New, Converted or Re-Newed RX: Other (use home meds) Patient Instructions Follow up Appt: Make appointment for 1 week. [phone] Instructions: No lifting greater than 20 pounds. No strenuous activity. May shower in 24 hours, no tub bath or soaking. Use incentive spirometer at home as directed. No Smoking Skin/Wound Care: May remove bandages in am. You need to leave the Dermabond on incision it will fall off on it's own. Symptoms to Report: Appetite Changes, Extremity Discoloration, Numbness/Tingling, Swelling Increased, Bleeding Excessive, Eyesight Changes, Pain Increased, Urine Color Change, Constipation(Persistent), Fever over 101 degree F, Pain/Pressure in chest, Urinating Difficulty, Cough Up/Vomit Blood, Heart Beat Irreg/Pounding, Pain/Pressure in jaw, Cramps in feet or legs, Lightheadedness, Pain/Pressure in shoulder, Diarrhea(Persistent), Memory Changes Suddenly, Questions/Concerns, Weight gain consecutive days, Dizziness/Fainting, Nausea/Vomiting, Shortness of Breath, Weight gain over 2 pounds If questions or concerns contact your physician Or seek help at emergency department. Activity Activity as Tolerated: Yes Activity Instructions: Avoid Stress to Incision Driving Instructions: No Driving/Refer to Dr. Oliva Discharge Diet: No Restrictions Diet After 24 Hours: Clear Liquid if Nauseous If Any Problems/Questions/Issu: Contact Your Physician, Go to Emergency Room Skin/Wound Care Infection Signs and Symptoms: Increased Redness, Foul Odor of Wound, Increased Drainage, Skin Itchy or Has a Rash, Increased Swelling, Temperature Above 101 F Bathing Instructions: Shower Stitches/Guero/Dermabond Dis: Care of CONSUELO Garrido DO Jul 16, 2022 11:05
--- NOTE | 2022-07-16 11:08 | Anesthesia-General Post-Op ---
General Patient Condition Mental Status/LOC: Same as Preop Cardiovascular: Satisfactory Nausea/Vomiting: Absent Respiratory: Satisfactory Pain: Controlled Complications: Absent Post Op Complications Complications None Follow Up Care/Instructions Patient Instructions None needed. Anesthesia/Patient Condition Patient Condition Patient is doing well, no complaints, stable vital signs, no apparent adverse anesthesia problems. No complications reported per nursing. NIKOLAS SCHULZ CRNA Jul 16, 2022 11:08
[2022-07-16] MEDS ORDERED: MEPERIDINE (DEMEROL) INJ 50 MG/ML IVP ONE (11:15)
[2022-07-16] MEDS ORDERED: fentaNYL INJ 100 MCG/2 ML AMP IVP ONE (11:15)
[2022-07-16] MEDS ORDERED: morphine INJ 10 MG/ML 1ML (SYR OR VIAL) IVP ONE (11:15)
[2022-07-16] MEDS ORDERED: ONDANSETRON 4 MG/2 ML (SDV) Z0FRAN IVP PRN (11:15)
--- NOTE | 2022-07-17 20:29 | OPERATIVE REPORT ---
DATE OF SERVICE: 07/16/2022 PREOPERATIVE DIAGNOSIS: Back mass x2; one on the left side, one in the right side. PREOPERATIVE DIAGNOSIS: Back mass x2; one on the left side, one in the right side, pending pathology. PROCEDURE: Excision of back mass from the soft tissue of the back; #1 measuring greater than 3 cm, #2 less than 3 cm. SURGEON: Jass Baer DO SYSTEM SOFTWARE DEVELOPER: Amita Lopez, MS3. ANESTHESIA: General endotracheal tube. SPECIMEN: Left back mass measuring 4.2 x 3.6 x 2.4, right back mass measuring 2.1 x 1.4 x 1.6. BLOOD LOSS: Scant. FLUIDS: Per anesthesia. POSTOPERATIVE CONDITION: Stable. INDICATION FOR PROCEDURE: The patient is a 71-year-old male who has a mass on the left back that has been getting bigger. He thinks it has drained in the past. He also noted it on the right side, he wanted both removed. FINDINGS: The patient had 2 back masses, left side was larger than the right, both in the soft tissue, but not subfascial, removed and sent to pathology. PROCEDURE NOTE: After informed consent was obtained, the patient was brought to the operating room. He was intubated and placed on the table in the prone position, sterilely prepped and draped in normal fashion. I started on the left side, infiltrated around and above the mass with local lidocaine, made an incision measuring 5.3 cm, then dissected down through the skin and then into the subcutaneous tissue going around this mass. The mass measured about 4.2 x 3.6 x 2.4 cm, able to get it completely removed. We did get into the mass and got some what looked like sebaceous material came out, suctioned this out and passed off, sent it to pathology. Copiously irrigated the incision with normal saline and closed the incision with 2-0 Prolene three vertical mattress suture. Then turned our attention to the right side of the back. Another mass was seen, infiltrated with local above and around, then made an incision 3.4 cm long and then removed this mass. It measured 2.1 cm long x about 1.4 cm wide and about 1.6 cm deep, able to get around this with Bovie electrocautery as well as sharp dissection with a #15 blade, passed off the table. Copiously irrigated with normal saline and then closed the right side with 3 interrupted vertical mattress sutures of 2-0 Prolene. Area was cleaned and dried, dressings placed. The patient tolerated the procedure and transferred to recovery room in stable condition. Sponge and needle count correct at the end of the case. Job ID: [id number] DocumentID: [id number] Dictated Date: 07/17/2022 13:05:57 Coil Cutter Date: 07/17/2022 20:29:05 Dictated By: JASS BAER DO
== END 2022-07-16 12:46 | disposition home or self-care (01) ==
LOC: SDC 07:03
PROVIDERS: ATTEND Surgery
DX: L72.0 Epidermal cyst (principal); Z87.891 Personal history of nicotine dependence; E66.01 Morbid (severe) obesity due to excess calories; Z68.45 Body mass index [BMI] 70 or greater, adult
CPT/HCPCS: 87081; 88304

== ENCOUNTER 2022-08-06 06:14 | Outpatient (CLI) | payer MEDICARE, MEDICAID ==
[~2022-08-06] VITALS: Ht 172.7 cm; Wt 114.8 kg
[~2022-08-06 06:14] MED LIST changes: +LEVO750T PO; -LEVO750T39 PO
== END 2022-08-08 12:14 | disposition home or self-care (01) ==
LOC: PREOP 06:14
PROVIDERS: ATTEND Surgery
DX: Z01.818 Encounter for other preprocedural examination (principal)

== ENCOUNTER 2022-08-18 11:44 | Day surgery (SDC) | payer MEDICARE, MEDICAID ==
[~2022-08-18] VITALS: Ht 172.7 cm; Wt 114.8 kg
[2022-08-18] MEDS ORDERED: LACTATED RINGERS 1,000 ML IV STA (11:56)
[2022-08-18] MEDS ORDERED: LACTATED RINGERS 1,000 ML IV ONE (12:04)
[2022-08-18 12:13] VITALS: BP 153/85
--- NOTE | 2022-08-18 12:53 | Progress Note-Pre Operative ---
Pre-Operative Progress Note Date of Available H&P: Jul 29, 2022 Date H&P Reviewed: Aug 18, 2022 Time H&P Reviewed: 12:50 History & Physical: H&P Reviewed, Patient Examed, No changes noted Pre-Operative Diagnosis: screening colonoscopy CONSUELO PRAJAPATI DO Aug 18, 2022 12:53
[2022-08-18] MEDS ORDERED: MIDAZOLAM 2 MG/2 ML (VERSED) VIAL ONE (13:28)
[2022-08-18] MEDS ORDERED: PROPOFOL INJECTION 50 ML IV ONE (13:29)
[2022-08-18 14:05] VITALS: BP 165/85
[2022-08-18 14:10] VITALS: BP 176/81
--- NOTE | 2022-08-18 14:13 | Endoscopy Discharge Instruct ---
Endo Procedure/Findings Findings 1.: Polyp 2.: Diverticulosis 3.: Internal Hemorrhoids Discharge Instructions - Activity: You might feel a little sleepy until tomorrow. This is due to the medicine you received to relax you. Until tomorrow, you should: NOT drive a car, operate machinery or power tools. NOT drink any alcoholic beverages. NOT make any important decisions or sign importortant papers. Do not return to work until tomorrow, unless otherwise instructed. Resume previous activities tomorrow. Diet: Start by taking liquids. If you tolerate liquids, advance to solid food. 1.: Colonoscopy in 1 year Notify Physician - If you experience excessive bleeding, unusual abdominal pain, fever, or chest pain, contact your doctor immediately. CONSUELO PRAJAPATI DO Aug 18, 2022 14:13
--- NOTE | 2022-08-18 14:13 | Progress Note-Post Operative ---
Post-Operative Progess Note Surgeon (s)/Tool Repair Technician (s) Surgeon CONSUELO PRAJAPATI DO Tool Repair Technician: Chilango Denny, [id number] Pre-Operative Diagnosis screening colonoscopy Post-Operative Diagnosis Polyps diverticula internal hemorrhoids Procedure & Operative Findings Date of Procedure 08/18/22 Procedure Performed/Findings Colonoscopy with snare polypectomy Colonoscopy with tattooing PROCEDURE NOTE: After informed consent was obtained, the patient was brought to the endoscopy suite, placed in bed in left lateral decubitus position. He was administered IV sedation by the APPLIER who then monitored his vitals the entire time, heart rate, blood pressure and pulse ox and the scope was inserted. On the way in noted multiple large diverticula in the left colon. Pushed all the way to about 140 cm and pushed into the cecum, took a picture of appendiceal orifice. Then slowly withdrew the scope insufflating to look circumferentially at the narayan starting in the cecum and up the ascending colon. Found three large polyps that I removed with snare and cautery. Continued up to the hepatic flexure, then down the transverse colon; where I found a very large flat polyp, approximately 2-3 cm in diameter. I elected to remove this in pieces with the snare and cautery; not sure I got all of it. I then tattooed this area. Started withdrawing again to the splenic flexure, into the descending colon down in the sigmoid and then into the rectal vault and retroflexed the scope. Took picture of the internal hemorrhoids. The patient tolerated the procedure. He was recovered in endoscopy suite. Recommended for repeat colonoscopy in 1 year. Anesthesia Type IV sedation by APPLIER Estimated Blood Loss Estimated blood loss (mL): scant Specimens/Packing Specimens Removed asc colon polyps transverse polyp in pieces CONSUELO PRAJAPATI DO Aug 18, 2022 14:13
[2022-08-18 14:30] VITALS: BP 183/96
[2022-08-18 14:40] VITALS: BP 183/96
--- NOTE | 2022-08-18 14:46 | Anesthesia-General Post-Op ---
MAC Patient Condition Mental Status/LOC: Same as Preop Cardiovascular: Satisfactory Nausea/Vomiting: Absent Respiratory: Satisfactory Pain: Controlled Complications: Absent Post Op Complications Complications None Follow Up Care/Instructions Patient Instructions None needed. Anesthesiology Discharge Order Discharge Order Patient is doing well, no complaints, stable vital signs, no apparent adverse anesthesia problems. No complications reported per nursing. SHAUNA NOONAN CRNA Aug 18, 2022 14:46
== END 2022-08-18 15:08 | disposition home or self-care (01) ==
LOC: ENDO 11:44
PROVIDERS: ATTEND Surgery
DX: Z12.11 Encounter for screening for malignant neoplasm of colon (principal); D12.2 Benign neoplasm of ascending colon; D12.3 Benign neoplasm of transverse colon; K57.30 Diverticulosis of large intestine without perforation or abscess without bleeding; K64.8 Other hemorrhoids; G47.33 Obstructive sleep apnea (adult) (pediatric); E11.9 Type 2 diabetes mellitus without complications; E66.9 Obesity, unspecified; Z68.39 Body mass index [BMI] 39.0-39.9, adult; Z87.891 Personal history of nicotine dependence; Z79.82 Long term (current) use of aspirin; Z85.828 Personal history of other malignant neoplasm of skin
CPT/HCPCS: 82947

== ENCOUNTER 2023-10-07 05:31 | Outpatient (CLI) | payer MEDICARE, MEDICAID ==
[~2023-10-07] VITALS: Ht 172.7 cm; Wt 119.5 kg
[2023-10-07] MEDS ORDERED: SEMA1PEN3 SQ (13:53)
[2023-10-07] MEDS ORDERED: OMEG1CAP58 PO (13:53)
[2023-10-07] MEDS ORDERED: SILD20TA14 PO (13:53)
[2023-10-07] MEDS ORDERED: ASPI-1238 PO (13:53)
[2023-10-07] MEDS ORDERED: CITA20TA9 PO (13:53)
[2023-10-07] MEDS ORDERED: TMSL.4C PO (13:53)
[2023-10-07] MEDS ORDERED: LISI20TA26 PO (13:53)
[2023-10-07] MEDS ORDERED: GABA300S3 PO (13:53)
[2023-10-07] MEDS ORDERED: TURM500C4 PO (13:53)
== END 2023-10-07 13:58 | disposition home or self-care (01) ==
LOC: PREOP 05:31
PROVIDERS: ATTEND Surgery
DX: Z01.818 Encounter for other preprocedural examination (principal)

== ENCOUNTER 2023-10-19 09:09 | Day surgery (SDC) | payer MEDICARE, MEDICAID ==
[~2023-10-19] VITALS: Ht 172.7 cm; Wt 119.5 kg
[~2023-10-19 09:09] MED LIST changes: +CITA20TA9 PO; +GABA300S3 PO; +OMEG1CAP58 PO; +SEMA1PEN3 SQ; +SILD20TA14 PO; +TMSL.4C PO; +TURM500C4 PO
[2023-10-19] MEDS ORDERED: LACTATED RINGERS 1,000 ML 1,000 ML IV STA (09:13)
[2023-10-19 09:29] VITALS: BP 162/95
--- NOTE | 2023-10-19 09:48 | Progress Note-Pre Operative ---
Pre-Operative Progress Note Date of Available H&P: Oct 06, 2023 Date H&P Reviewed: Oct 19, 2023 Time H&P Reviewed: 09:47 History & Physical: H&P Reviewed, Patient Examed, No changes noted Pre-Operative Diagnosis: Hx of polyps CONSUELO PRAJAPATI DO Oct 19, 2023 09:48
[2023-10-19] MEDS ORDERED: LABETALOL 5 mg/ml 4 ML SINGLE DOSE SYRINGE ONE (10:02)
[2023-10-19 10:14] VITALS: BP 187/86
--- NOTE | 2023-10-19 10:18 | Progress Note-Post Operative ---
Post-Operative Progess Note Surgeon (s)/Information Specialist (s) Surgeon CONSUELO PRAJAPATI DO Information Specialist: none Pre-Operative Diagnosis Hx of polyps Post-Operative Diagnosis Diverticula Polyp poor prep Procedure & Operative Findings Date of Procedure 10/19/23 Procedure Performed/Findings Flexible Sigmoidoscopy (colonoscopy cut short) PROCEDURE NOTE: After informed consent was obtained, the patient was brought to the endoscopy suite, placed in bed in left lateral decubitus position. He was administered IV sedation by the DISTRICT MANAGER MAJOR ACCOUNTS SALES who then monitored his vitals the entire time, heart rate, blood pressure and pulse ox and the scope was inserted. Immediately upon entering encountered a large amount of liquid stool and large vegetable matter. Attempted to suction it up and began pushing the scope in and got to about 70 cm; unfortunately his SBP shot up into the 200s and he began vomiting. I was at the point that I found a polyp and large diverticula. However, the DISTRICT MANAGER [employer] SALES asked that we stop the procedure because he could not get the BP down and his saturation was dropping. At this point, I stopped (I was about to snare the polyp, had the snare into colon) and pulled out the scope. The patient was recovered in endoscopy suite. Recommended for repeat colonoscopy in 1-2 months. Anesthesia Type IV sedation by DISTRICT MANAGER [employer] SALES Estimated Blood Loss Estimated blood loss (mL): none Specimens/Packing Specimens Removed none CONSUELO PRAJAPATI DO Oct 19, 2023 10:18
[2023-10-19 10:19] VITALS: BP 183/82
--- NOTE | 2023-10-19 10:19 | Endoscopy Discharge Instruct ---
Endo Procedure/Findings Findings 1.: Polyp 2.: Diverticulosis 3.: Other Findings (poor prep) Discharge Instructions - Activity: You might feel a little sleepy until tomorrow. This is due to the medicine you received to relax you. Until tomorrow, you should: NOT drive a car, operate machinery or power tools. NOT drink any alcoholic beverages. NOT make any important decisions or sign importortant papers. Do not return to work until tomorrow, unless otherwise instructed. Resume previous activities tomorrow. Diet: Start by taking liquids. If you tolerate liquids, advance to solid food. 1.: Other Recommendation (Colonoscopy in 1-2 months) Notify Physician - If you experience excessive bleeding, unusual abdominal pain, fever, or chest pain, contact your doctor immediately. Follow-Up: Other Follow up in my office in one week CONSUELO PRAJAPATI DO Oct 19, 2023 10:19
[2023-10-19 10:34] VITALS: BP 162/95
[2023-10-19 10:49] VITALS: BP 183/89
--- NOTE | 2023-10-19 15:20 | Anesthesia-General Post-Op ---
MAC Patient Condition Mental Status/LOC: Same as Preop Cardiovascular: Satisfactory Nausea/Vomiting: Absent Respiratory: Satisfactory Pain: Controlled Complications: Absent Post Op Complications Complications None Follow Up Care/Instructions Patient Instructions None needed. Anesthesiology Discharge Order Discharge Order Patient is doing well, no complaints, stable vital signs, no apparent adverse anesthesia problems. No complications reported per nursing. NIKOLAS SCHULZ POOLING OPERATOR Oct 19, 2023 15:20
== END 2023-10-19 11:03 | disposition home or self-care (01) ==
LOC: ENDO 09:09
PROVIDERS: ATTEND Surgery
DX: Z12.11 Encounter for screening for malignant neoplasm of colon (principal); K63.5 Polyp of colon; K57.30 Diverticulosis of large intestine without perforation or abscess without bleeding; E66.9 Obesity, unspecified; Z68.41 Body mass index [BMI] 40.0-44.9, adult; Z87.891 Personal history of nicotine dependence; Z85.828 Personal history of other malignant neoplasm of skin
CPT/HCPCS: 82947